=== PATIENT | male | born 1930 | race Caucasian/White ===

== ENCOUNTER 2016-10-16 08:53 | Inpatient (IN) | payer OTHER ==
[~2016-10-16] VITALS: Ht 167.6 cm; Wt 76.0 kg
[~2016-10-16 08:53] MED LIST: PROSTATE MED
--- NOTE | 2016-10-16 09:44 | EMERGENCY ROOM VISIT NOTE ---
History Report prepared by Chloe: Jasper Flannery Under the Supervision of: Dr. Ulysses Lorenzana M.D. First contact with patient: 09:07 Stated Complaint: BACK PAIN/WEAKNESS History of Present Illness The patient is an 86 year old male who presents to the Emergency Room with complaints of persistent lower back pain for the past several days. The pain is described as a burning sensation in the back. He had Advil for pain, which helped minimally. The patient has trouble urinating secondary to prostate disease. He notes that he has trouble initiating urination. 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 He notes that his abdomen feels "tight," and he complains of shortness of breath. He denies chest pain. The patient is on Lasix for a history of CHF. His last dose of Lasix was yesterday morning. The patient's daughter translated the history from [place] at bedside. A complete history may be limited secondary to language barrier. 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 Past Medical & Surgical Medical Problems: (1) BPH (benign prostatic hyperplasia) (2) Sepsis (3) UTI (urinary tract infection) Surgical Problems: (1) No pertinent past surgical history Family History Patient reports no known family medical history. Social History Marital Status: Housing Status: lives with family Current/Historical Medications No Active Prescriptions or Reported Meds Allergies Coded Allergies: No Known Allergies (Verified , 10/16/16) Physical Exam Vital Signs Date Time Temp Pulse Resp B/P Pulse Ox O2 Delivery O2 Flow Rate FiO2 10/16/16 13:54 111 26 95 10/16/16 13:44 90/62 10/16/16 13:39 118 13 94 10/16/16 13:34 138 14 95 Nasal Cannula 4.0 10/16/16 13:30 79/48 10/16/16 13:28 79/48 10/16/16 13:27 66/49 10/16/16 13:22 89/62 10/16/16 13:19 132 17 92 10/16/16 13:15 66/53 10/16/16 13:13 71/57 10/16/16 13:04 162 28 10/16/16 13:01 175 10/16/16 12:59 180 30 81/62 10/16/16 12:55 91/63 10/16/16 12:19 150 98 10/16/16 12:14 92/60 10/16/16 12:13 141 96 Nebulizer 10/16/16 12:08 136 98 10/16/16 12:03 132 98 10/16/16 11:58 131 99 Nebulizer 10/16/16 11:56 107 16 92 Room Air 10/16/16 11:53 132 99 10/16/16 11:48 131 99 10/16/16 11:43 128 99 10/16/16 11:38 127 100 10/16/16 11:33 124 99 10/16/16 11:28 121 98 10/16/16 11:23 119 98 10/16/16 11:18 115 98 10/16/16 11:13 115 98 10/16/16 11:08 114 98 10/16/16 11:03 108 91 10/16/16 10:58 108 92 10/16/16 10:53 108 92 10/16/16 10:52 110 16 99/64 93 Room Air 10/16/16 10:51 99/64 10/16/16 10:48 105 93 10/16/16 10:43 105 93 10/16/16 10:38 98 93 10/16/16 10:33 102 95 10/16/16 10:28 103 95 10/16/16 10:23 104 94 10/16/16 10:18 102 94 10/16/16 10:15 108/68 10/16/16 10:15 107 16 108/68 94 Room Air 10/16/16 10:13 105 92 10/16/16 10:08 105 30 93 10/16/16 10:03 109 29 94 10/16/16 09:58 109 24 94 10/16/16 09:53 102 13 10/16/16 09:49 94 Room Air 10/16/16 09:49 94 Room Air 10/16/16 09:48 105 13 94 10/16/16 09:43 116 20 95 10/16/16 09:38 110 14 94 10/16/16 09:33 113 26 94 10/16/16 09:28 112 36 95 10/16/16 09:23 97 31 92 10/16/16 09:18 106 18 96 10/16/16 09:13 108 27 95 10/16/16 09:12 36.9 98 20 132/95 93 Room Air 10/16/16 09:08 113 18 93 10/16/16 09:03 125 13 95 10/16/16 09:00 113 10/16/16 08:56 132/95 Physical Exam GENERAL: Patient is a healthy-appearing well-nourished HEAD: Normocephalic atraumatic EYES: Ocular movements intact pupils equal and react to light OROPHARYNX mucous membranes are moist no exudates present no erythema or edema present NECK: Supple no nuchal rigidity CHEST: Good equal expansion LUNGS: Clear and equal to auscultation CARDIAC: Normal S1 and S2 ABDOMEN: Soft nontender no guarding BACK: No CVA tenderness EXTREMITIES: No pain upon palpation normal muscle strength in all groups no clubbing cyanosis or edema NEURO: Patient is following commands is answering questions appropriately. Alert and oriented x3 Cranial Nerves 2-12 grossly intact Medical Decision & Procedures ER Provider Diagnostic Interpretation: Radiology results as stated below per my review and radiologist interpretation: CHEST ONE VIEW PORTABLE CLINICAL HISTORY: Pt c/o SOB dyspnea COMPARISON STUDY: 03/22/2008 FINDINGS: No evidence for cardiac enlargement. Diaphragms smooth. Small parenchymal infiltrate left base. Lungs otherwise appear clear. IMPRESSION: Small parenchymal infiltrate right base. Electronically signed by: Chinedu Liu M.D. 10/16/2016 10:25 AM Dictated Date/Time: 10/16/2016 10:24 AM ABDOMEN AND PELVIS CT WITHOUT CONTRAST CT DOSE: 864.07 mGycm HISTORY: Pain Pt c/o low back pain TECHNIQUE: Multiaxial CT images of the abdomen and pelvis were performed without contrast. COMPARISON STUDY: None. FINDINGS: Mild bibasilar parenchymal infiltrative/atelectatic changes. Configuration of liver is unremarkable. Several tiny gallstones may be present. Kidneys negative for hydronephrosis. Spleen is unremarkable. The adrenal glands are within normal limits. Bowel pattern overall is nonobstructive. Noyola catheter is present within the bladder. The inguinal Regions are unremarkable. IMPRESSION: 1. Bibasilar infiltrative and/or atelectatic changes. 2. Possible tiny gallstones. 3. Nonobstructive bowel pattern. 4. No acute processes the abdomen or pelvis 5. Significant degenerative change of the lumbar spine at the L2-L3 and L4 levels Electronically signed by: Chinedu Liu M.D. 10/16/2016 1:14 PM Dictated Date/Time: 10/16/2016 1:03 PM Laboratory Results Test 10/16/16 09:52 10/16/16 09:55 10/16/16 13:34 Neutrophils % (Manual) 91.2 % Lymphocytes % (Manual) 3.5 % Monocytes % (Manual) 3.5 % Eosinophils % (Manual) 0.9 % Myelocytes % 0.9 % Neutrophils # (Manual) 13.63 K/uL (1.4-6.5) Total Absolute Neutrophils 13.63 K/uL (1.4-6.5) Lymphocytes # (Manual) 0.52 K/uL (1.2-3.4) Total Absolute Lymphocytes 0.52 K/uL (1.2-3.4) Monocytes # (Manual) 0.52 K/uL (0.11-0.59) Eosinophils # (Manual) 0.13 K/uL (0-0.5) Myelocytes # 0.13 K/uL (0-0) Toxic Granulation 1+ Prothrombin Time 13.8 SECONDS (9.0-12.0) Prothromb Time International Ratio 1.3 (0.9-1.1) Activated Partial Thromboplast Time 27.6 SECONDS (21.0-31.0) Partial Thromboplastin Ratio 1.1 Pro-B-Type Natriuretic Peptide 3006 pg/ml (0-1800) Thyroid Stimulating Hormone (TSH) 3.620 uIu/ml (0.300-4.500) Urine Color DK YELLOW Urine Appearance TURBID (CLEAR) Urine pH 7.0 (4.5-7.5) Urine Specific [place] 1.021 (1.000-1.030) Urine Protein 2+ (NEG) Urine Glucose (UA) NEG (NEG) Urine Ketones TRACE (NEG) Urine Occult Blood 3+ (NEG) Urine Nitrite NEG (NEG) Urine Bilirubin NEG (NEG) Urine Urobilinogen NEG (NEG) Urine Leukocyte Esterase LARGE (NEG) Urine WBC (Auto) >30 /hpf (0-5) Urine RBC (Auto) >30 /hpf (0-4) Urine Hyaline Casts (Auto) 0 /lpf (0-5) Urine Epithelial Cells (Auto) 0-5 /lpf (0-5) Urine Bacteria (Auto) 4+ (NEG) Urine Pathogenic Casts /lpf (0) Urine Yeast (Auto) (NONE PRSENT) Influenza Type A (RT-PCR) Neg for Influ A (NEG) Influenza Type B (RT-PCR) Neg for Influ B (NEG) Date/Time Source Procedure Growth Status 10/16/16 09:55 Urine,Catheterized Urine Culture - Final Staphylococcus Aureus Complete Labs reviewed by ED physician. Medications Administered Medications (Trade) Dose Ordered Sig/Malik Route Start Time Stop Time Status Last Admin Dose Admin Piperacillin Sod/ Tazobactam Sod (Zosyn Iv) 4.5 gm NOW STAT IV 10/16/16 10:38 10/16/16 10:40 DC 10/16/16 10:49 4.5 GM Levofloxacin (Levaquin / D5W) 500 mg NOW STAT IV 10/16/16 10:38 10/16/16 10:40 DC 10/16/16 12:26 500 MG Morphine Sulfate (MoRPHine SULFATE INJ) 4 mg NOW STAT IV 10/16/16 10:40 10/16/16 10:41 DC 10/16/16 10:49 4 MG Ondansetron HCl 4 mg 4 mg NOW STAT IV 10/16/16 10:40 10/16/16 10:41 DC 10/16/16 10:47 4 MG Sodium Chloride 1,000 ml @ 999 mls/hr Q1H1M STAT IV 10/16/16 10:52 10/16/16 11:52 DC 10/16/16 12:26 999 MLS/HR Diltiazem HCl/ Dextrose (Cardizem Inj/D5 100ml) 125 ml @ 0 mls/hr Q0M PRN IV 10/16/16 13:15 10/17/16 02:01 DC 10/16/16 13:21 5 MLS/HR Diltiazem HCl (Cardizem Inj) 16 mg NOW STAT IV 10/16/16 13:05 10/17/16 02:01 DC 10/16/16 13:17 16 MG Diltiazem HCl (Cardizem Inj) 23 mg NOW STAT IV 10/16/16 13:05 10/17/16 02:01 DC 10/16/16 13:27 23 MG ECG Indication: back/shoulder pain Rate (beats per minute): 115 Rhythm: sinus tachycardia Findings: no acute ischemic change, no ectopy Change: Repeat EKG: Atrial fibrillation with RVR at 177, no acute ischemic changes. Patient is now in A-fib with RVR compared to earlier EKG. ED Course 0910: The patient gave permission for his daughter to interpret. 0915: Past medical records reviewed. The patient was evaluated in room B3b. A complete history and physical examination was performed. 0930: Patient put out 187 CCs from catheter. 1038: Levaquin / D5w 500 mg IV, Zosyn 4.5 gm IV. 1040: Zofran 4 mg IV, Morphine Sulfate 4 mg IV. 1045: DuoNeb 12 ml INH. 1052: NSS 1000 ml @ 999 mls/hr. 1300: Patient is now in A-fib with RVR. See ECG section for interpretation. 1305: Cardizem 24 mg IV, Cardizem 6 mg IV. 1310: Discussed the case with Areli Browne PA-C, [facility]. The patient will be evaluated. 1315: Cardizem 125 mg / dextrose 125 ml @ 0 mls/hr. Medical Decision Differential diagnosis: Etiologies such as viral syndrome, otitis, pharyngitis, pneumonia, influenza, meningitis, urinary tract infection, sepsis, bacteremia, as well as others were entertained. This is an 86-year-old male who presents emergency department complaining of generalized weakness. The patient does appear to have pneumonia on his chest x- ray and is in acute renal failure. He was pancultured up and started on antibiotics. The patient was given albuterol breathing treatments which resulted in the patient going into an A. fib with RVR. For this reason he was started on Cardizem bolus with drip. I did discuss the case with the hospitalist service who agreed to admit the patient. Patient family were in agreement with the treatment plan. Consults Time Called: 1300 Consulting Physician: Areli Browne PA-C, [facility]. Returned Call: [phone]: Discussed the case with Areli Browne PA-C, [facility]. The patient will be evaluated. Impression Primary Impression: Pneumonia Additional Impressions: ARF (acute renal failure) Atrial fibrillation with RVR Critical Care I have personally spent greater than 30 minutes of critical care time in the direct management of this patient. This includes bedside care, interpretation of diagnostic studies, and testing, discussion with consultants, patient, and family members, and other required patient management activities. This 30 minutes is in excess of all separately billable procedures. Scribe Attestation The scribe's documentation has been prepared under my direction and personally reviewed by me in its entirety. I confirm that the note above accurately reflects all work, treatment, procedures, and medical decision making performed by me. Departure Information Dispostion Being Evaluated By Hospitalist Prescriptions No Active Prescriptions or Reported Meds Referrals Ace Castro M.D. (PCP) Problem Qualifiers Primary Impression: Pneumonia Pneumonia type: due to unspecified organism Laterality: unspecified laterality Lung location: unspecified part of lung Qualified Codes: J18.9 - Pneumonia, unspecified organism Additional Impressions: ARF (acute renal failure) Acute renal failure type: unspecified Qualified Codes: N17.9 - Acute kidney failure, unspecified
--- NOTE | 2016-10-16 10:27 | DIAGNOSTIC IMAGING REPORT ---
CHEST ONE VIEW PORTABLE CLINICAL HISTORY: Pt c/o SOB dyspnea COMPARISON STUDY: 03/22/2008 FINDINGS: No evidence for cardiac enlargement. Diaphragms smooth. Small parenchymal infiltrate left base. Lungs otherwise appear clear. IMPRESSION: Small parenchymal infiltrate right base. Electronically signed by: Chinedu Liu M.D. 10/16/2016 10:25 AM Dictated Date/Time: 10/16/2016 10:24 AM
[2016-10-16] MEDS ORDERED: LEVAQUIN 500MG / 100ML D5W IV STA (10:38)
[2016-10-16] MEDS ORDERED: PIPERACILLIN/TAZOBACTAM 4.5 GM/100ML D5W IV STA (10:38)
[2016-10-16] MEDS ORDERED: ONDANSETRON INJ 2 MG/ML 2 ML VIAL IV STA (10:40)
[2016-10-16] MEDS ORDERED: MoRPHine SULFATE 4 MG/ML 1 ML CARP\\VIAL IV STA (10:40)
[2016-10-16] MEDS ORDERED: ALBUT/IPRATROP 3MG/0.5MG NEB 3 ML VIAL INH ONE (10:45)
[2016-10-16 10:50] LABS: ALT/SGPT 70 U/L (12-78); AST/SGOT 72 U/L (15-37); BLOOD UREA NITROGEN 43 mg/dl (7-18); BUN/CREATININE RATIO 21.4 (10-20); CALCIUM 8.7 mg/dl (8.5-10.1); CARBON DIOXIDE 21 mmol/L (21-32); CHLORIDE 105 mmol/L (98-107); GLUCOSE 138 mg/dl (70-99); POTASSIUM 4.2 mmol/L (3.5-5.1); SODIUM 141 mmol/L (136-145)
[2016-10-16] MEDS ORDERED: SODIUM CHLORIDE 0.9% 1000ML 1,000 ML IV STA (10:52)
[2016-10-16 11:10] LABS: COMPLETE YES; EOSINOPHIL % 0.9 %; LYMPH ABS # 0.52 K/uL (1.2-3.4); LYMPHOCYTE % 3.5 %; MEAN CELL VOLUME 88.2 fL (80-100); MEAN CORPUSCULAR HEMOGLOBIN 30.9 pg (25-34); MEAN PLATELET VOLUME 12.1 fL (7.4-10.4); MYELOCYTE % 0.9 %; NEUTROPHILS % 91.2 %; PLATELET COUNT 71 K/uL (130-400); RED BLOOD COUNT 4.76 M/uL (4.7-6.1); TOXIC GRANULATION 1+; WHITE BLOOD COUNT 14.95 K/uL (4.8-10.8)
[2016-10-16 11:12] LABS: ALB/GLOB RATIO 1.1 (0.9-2); ALKALINE PHOSPHATASE 204 U/L (45-117); CKMB/CK RATIO 1.5 (0-3.0)
[2016-10-16 11:12] LABS: URINE APPEARANCE TURBID (CLEAR); URINE BILIRUBIN NEG (NEG); URINE COLOR DK YELLOW; URINE NITRITE NEG (NEG); URINE SPECIFIC GRAVITY 1.021 (1.000-1.030); UROBILINOGEN NEG (NEG); ZZURINE CULT IF INDIC CATH YES
[2016-10-16 11:23] LABS: MANUAL MICROSCOPIC REQUIRED? NO; REVIEW REQ? YES
[2016-10-16 11:52] LABS: URINE EPITHELIAL CELL AUTO 0-5 /lpf (0-5)
[2016-10-16 11:56] VITALS: PULSE 107; O2SAT 92
[2016-10-16] MEDS ORDERED: DILTIAZEM BOLUS / DRIP IV STA (13:00)
[2016-10-16] MEDS ORDERED: DILTIAZEM HCL 5 MG/ML 5 ML VIAL IV STA ×2 (13:05)
[2016-10-16] MEDS ORDERED: DILTIAZEM HCL INJ 125 MG in DEXTROSE 5% 100ML IV PRN (13:15)
--- NOTE | 2016-10-16 13:15 | DIAGNOSTIC IMAGING REPORT ---
ABDOMEN AND PELVIS CT WITHOUT CONTRAST CT DOSE: 864.07 mGycm HISTORY: Pain Pt c/o low back pain TECHNIQUE: Multiaxial CT images of the abdomen and pelvis were performed without contrast. COMPARISON STUDY: None. FINDINGS: Mild bibasilar parenchymal infiltrative/atelectatic changes. Configuration of liver is unremarkable. Several tiny gallstones may be present. Kidneys negative for hydronephrosis. Spleen is unremarkable. The adrenal glands are within normal limits. Bowel pattern overall is nonobstructive. Noyola catheter is present within the bladder. The inguinal Regions are unremarkable. IMPRESSION: 1. Bibasilar infiltrative and/or atelectatic changes. 2. Possible tiny gallstones. 3. Nonobstructive bowel pattern. 4. No acute processes the abdomen or pelvis 5. Significant degenerative change of the lumbar spine at the L2-L3 and L4 levels Electronically signed by: Chiendu Liu M.D. 10/16/2016 1:14 PM Dictated Date/Time: 10/16/2016 1:03 PM
[2016-10-16 13:28] LABS: INR 1.3 (0.9-1.1); PARTIAL THROMBOPLASTIN RATIO 1.1; PROTHROMBIN TIME (PATIENT) 13.8 SECONDS (9.0-12.0)
[2016-10-16] MEDS ORDERED: ONDANSETRON INJ 2 MG/ML 2 ML VIAL IV PRN (14:00)
--- NOTE | 2016-10-16 14:08 | History and Physical ---
History & Physical Date & Time of Service: Oct 16, 2016 at 13:58 Chief Complaint: Back Pain/Weakness Primary Care Physician: Tamara Toribio D.O. History of Present Illness Source: patient, family, clinic records, hospital records Patient seen and examined. 86 year old male with no significant PMHx presents to the ED complaining of generalized weakness since last night. Patient speaks Kosovan. Translating service was offered to the patient but he declined and requested that his daughter translate for him. Patient was feeling close to baseline until last evening when he started to feel SOB and generally weak. He reports taking his BP at home and that it was lower than normal. He has associated chest congestion and dysuria. He denies fevers, cough, chest pain, palpitations, nausea, vomiting, diarrhea, calf pain. Patient has peripheral edema worse in the left leg for several months with overlying erythema. He has taken Lasix for this but only a few doses because of side effect. He denies any PMHx of heart disease, and does not take any medications. He follows with a PCP regularly. In the ED VS were initially stable, WBC count was elevated, he is thrombocytopenic, crea is elevated, and there is a slight bump in troponin. UA shows infection, and CXR showed possible pneumonia. He received a duoneb treatment and apparently developed afib with RVR. Duoneb was stopped and patient was placed on Cardizem drip. His BP has subsequently dropped. He will be admitted for further workup and treatment. Past Medical/Surgical History Medical Problems: (1) BPH (benign prostatic hyperplasia) Status: Chronic Surgical Problems: (1) No pertinent past surgical history Status: Chronic Family History Patient reports no known family medical history. Social History Smoking Status: Never Smoker Alcohol Use: none Marital Status: Housing status: lives with family Occupational Status: retired Multi-Drug Resistant Organisms History of MDRO: No Allergies Coded Allergies: No Known Allergies (Verified , 10/16/16) Home Medications No Active Prescriptions or Reported Meds Review of Systems See above for pertinent positives & negatives. A total of 10 systems reviewed and were otherwise negative. Physical Exam Vital Signs Date Time Temp Pulse Resp B/P Pulse Ox O2 Delivery O2 Flow Rate FiO2 10/16/16 13:34 138 14 95 Nasal Cannula 4.0 10/16/16 13:30 79/48 10/16/16 13:28 79/48 10/16/16 13:27 66/49 10/16/16 13:22 89/62 10/16/16 13:19 132 17 92 10/16/16 13:15 66/53 10/16/16 13:13 71/57 10/16/16 13:04 162 28 10/16/16 13:01 175 10/16/16 12:59 180 30 81/62 10/16/16 12:55 91/63 10/16/16 12:19 150 98 10/16/16 12:14 92/60 10/16/16 12:13 141 96 Nebulizer 10/16/16 12:08 136 98 10/16/16 12:03 132 98 10/16/16 11:58 131 99 Nebulizer 10/16/16 11:56 107 16 92 Room Air 10/16/16 11:53 132 99 10/16/16 11:48 131 99 10/16/16 11:43 128 99 10/16/16 11:38 127 100 10/16/16 11:33 124 99 10/16/16 11:28 121 98 10/16/16 11:23 119 98 10/16/16 11:18 115 98 10/16/16 11:13 115 98 10/16/16 11:08 114 98 10/16/16 11:03 108 91 10/16/16 10:58 108 92 10/16/16 10:53 108 92 10/16/16 10:52 110 16 99/64 93 Room Air 10/16/16 10:51 99/64 10/16/16 10:48 105 93 10/16/16 10:43 105 93 10/16/16 10:38 98 93 10/16/16 10:33 102 95 10/16/16 10:28 103 95 10/16/16 10:23 104 94 10/16/16 10:18 102 94 10/16/16 10:15 108/68 10/16/16 10:15 107 16 108/68 94 Room Air 10/16/16 10:13 105 92 10/16/16 10:08 105 30 93 10/16/16 10:03 109 29 94 10/16/16 09:58 109 24 94 10/16/16 09:53 102 13 10/16/16 09:49 94 Room Air 10/16/16 09:49 94 Room Air 10/16/16 09:48 105 13 94 10/16/16 09:43 116 20 95 10/16/16 09:38 110 14 94 10/16/16 09:33 113 26 94 10/16/16 09:28 112 36 95 10/16/16 09:23 97 31 92 10/16/16 09:18 106 18 96 10/16/16 09:13 108 27 95 10/16/16 09:12 36.9 98 20 132/95 93 Room Air 10/16/16 09:08 113 18 93 10/16/16 09:03 125 13 95 10/16/16 09:00 113 10/16/16 08:56 132/95 General Appearance: + pertinent finding (WD/WN 86 year old male lying inbed in NAD with family at bedside ) Head: normocephalic, atraumatic Eyes: PERRL, EOMI, sclerae normal ENT: hearing grossly normal, pharynx normal Neck: supple, no JVD Respiratory/Chest: chest non-tender, lungs clear, normal breath sounds, no respiratory distress, no accessory muscle use Cardiovascular: no gallop, no JVD, no murmur, normal peripheral pulses, + tachycardia (120s) Abdomen/GI: normal bowel sounds, non tender, soft Genitourinary - Male: + pertinent finding (haas with dark yellow urine ) Extremities/Musculoskelatal: no calf tenderness, normal capillary refill, + pedal edema (+2 pedal edema L>R), + pertinent finding (overlying erythema to LLE , drainage ) Neurologic/Psych: alert, oriented x 3 Skin: normal color, warm/dry Lymphatic: no adenopathy Diagnostics Laboratory Results Results Past 24 Hours Test 10/16/16 09:52 10/16/16 09:55 10/16/16 13:34 10/16/16 13:35 Range/Units White Blood Count 14.95 4.8-10.8 K/uL Red Blood Count 4.76 4.7-6.1 M/uL Hemoglobin 14.7 14.0-18.0 g/dL Hematocrit 42.0 42-52 % Mean Corpuscular Volume 88.2 80-100 fL Mean Corpuscular Hemoglobin 30.9 25-34 pg Mean Corpuscular Hemoglobin Concent 35.0 32-36 g/dl Platelet Count 71 130-400 K/uL Mean Platelet Volume 12.1 7.4-10.4 fL RDW Standard Deviation 50.6 36.4-46.3 fL RDW Coefficient of Variation 15.7 11.5-14.5 % Neutrophils % (Manual) 91.2 % Lymphocytes % (Manual) 3.5 % Monocytes % (Manual) 3.5 % Eosinophils % (Manual) 0.9 % Myelocytes % 0.9 % Neutrophils # (Manual) 13.63 1.4-6.5 K/uL Total Absolute Neutrophils 13.63 1.4-6.5 K/uL Lymphocytes # (Manual) 0.52 1.2-3.4 K/uL Total Absolute Lymphocytes 0.52 1.2-3.4 K/uL Monocytes # (Manual) 0.52 0.11-0.59 K/uL Eosinophils # (Manual) 0.13 0-0.5 K/uL Myelocytes # 0.13 0-0 K/uL Toxic Granulation 1+ Prothrombin Time 13.8 9.0-12.0 SECONDS Prothromb Time International Ratio 1.3 0.9-1.1 Activated Partial Thromboplast Time 27.6 21.0-31.0 SECONDS Partial Thromboplastin Ratio 1.1 Sodium Level 141 136-145 mmol/L Potassium Level 4.2 3.5-5.1 mmol/L Chloride Level 105 98-107 mmol/L Carbon Dioxide Level 21 21-32 mmol/L Anion Gap 15.0 3-11 mmol/L Blood Urea Nitrogen 43 7-18 mg/dl Creatinine 2.00 0.60-1.40 mg/dl Estimated GFR () 33.8 Estimated GFR (Non- 29.1 BUN/Creatinine Ratio 21.4 10-20 Random Glucose 138 70-99 mg/dl Calcium Level 8.7 8.5-10.1 mg/dl Total Bilirubin 1.9 0.2-1 mg/dl Aspartate Amino Transf (AST/SGOT) 72 15-37 U/L Alanine Aminotransferase (ALT/SGPT) 70 12-78 U/L Alkaline Phosphatase 204 45-117 U/L Total Creatine Kinase 210 39-308 U/L Creatine Kinase MB 3.1 0.5-3.6 ng/ml Creatine Kinase MB Ratio 1.5 0-3.0 Troponin I 0.191 0-0.045 ng/ml Pro-B-Type Natriuretic Peptide 3006 0-1800 pg/ml Total Protein 5.8 6.4-8.2 gm/dl Albumin 3.1 3.4-5.0 gm/dl Globulin 2.7 2.5-4.0 gm/dl Albumin/Globulin Ratio 1.1 0.9-2 Thyroid Stimulating Hormone (TSH) 3.620 0.300-4.500 uIu/ml Urine Color DK YELLOW Urine Appearance TURBID CLEAR Urine pH 7.0 4.5-7.5 Urine Specific [place] 1.021 1.000-1.030 Urine Protein 2+ NEG Urine Glucose (UA) NEG NEG Urine Ketones TRACE NEG Urine Occult Blood 3+ NEG Urine Nitrite NEG NEG Urine Bilirubin NEG NEG Urine Urobilinogen NEG NEG Urine Leukocyte Esterase LARGE NEG Urine WBC (Auto) >30 0-5 /hpf Urine RBC (Auto) >30 0-4 /hpf Urine Hyaline Casts (Auto) 0 0-5 /lpf Urine Epithelial Cells (Auto) 0-5 0-5 /lpf Urine Bacteria (Auto) 4+ NEG Urine Pathogenic Casts 0 /lpf Urine Yeast (Auto) NONE PRSENT Microbiology Results 10/16/16 Blood Culture, Received Pending 10/16/16 Blood Culture, Received Pending 10/16/16 Urine Culture, Received Pending Diagnostic Radiology CT A/P Per radiologist read: IMPRESSION: 1. Bibasilar infiltrative and/or atelectatic changes. 2. Possible tiny gallstones. 3. Nonobstructive bowel pattern. 4. No acute processes the abdomen or pelvis 5. Significant degenerative change of the lumbar spine at the L2-L3 and L4 levels CXR Per radiologist read: IMPRESSION: Small parenchymal infiltrate right base. EKG Sinus Tachycardia 115 BPM, QTc 418, nonspecific ST and twave changes Impression Assessment and Plan 86 year old male who speaks Kosovan and enjoys relatively good health presents to the ED complaining of SOB, generalized weakness since last night SEPSIS -Admit to tele -WBC count: 14K, Lactate 13, hypotension, tachycardia, afebrile -Likely UTI and Pneumonia, possible cellulitis -panculture -receive 2L IVF bolus, gentle IVFs continued -trend lactate acid -empirically treat with Levaquin, and Zosyn. -CBC, PRP, Mg in AM COMMUNITY ACQUIRED PNEUMONIA -CXR with right basilar consolidation -r/o flu, PCR pending -check sputum cultures -empirically treat with Levaquin and Zosyn -additional management as above URINARY TRACT INFECTION -check culture -empirically treat with Levaquin and Zosyn LACTIC ACIDOSIS -13.5 -received 30ml/kg of IVFs -repeat lactate pending HYPOTENSION -BP as low as 60s systolically -? secondary to sepsis versus Cardizem drip. BP was stable on arrival -Cardizem drip stopped -additional 1 liter bolus given -BP improved -monitor in tele ACUTE RENAL FAILURE -crea 2, baseline <1 -likely secondary to dehydration, acute illness, and recent lasix use -IVF hydration -avoid nephrotoxic agents -follow PRP ELEVATED TROPONIN -0.191->0.5 -? demand ischemic in setting of sepsis, no chest pain -continue to trend enzymes -repeat EKG -echo pending -cardiology consult placed for further input -will hold off on aspirin at this time d/t platelet count -monitor in tele LEFT LOWER EXTREMITY EDEMA -Possible cellulitis, r/o DVT -doppler US pending TACHYCARDIA -reports that patient was in Afib following duoneb administration- EKG with Sinus tach -repeat EKG -stop Cardizem drip d/t hypotension -tachycardia possibly secondary to sepsis -IVF hydration -monitor in tele THROMBOCYTOPENIA -71 today, no signs of active bleeding? secondary to acute illness -avoid anticoagulation -repeat in AM DVT PROPHYLAXIS: cannot anticoagulate d/t thrombocytopenia, hold off on SCDs until doppler US CODE STATUS: FULL CODE per my discussion with the patient and his family DISPO:In my clinical judgment this beneficiary meets acute admission criteria, established by [facility], that includes being hospitalized through two midnights. Discharge planning eval Patient seen in collaboration with Dr. Hernandez Attending Addendum Pt was seen and examined with daughter and at beside. Pt speaks Kosovan and daughter was translating for him. Agreed with Areli [facility], assessment and plan. 86 year old male with no significant PMHx presents to the ED complaining of generalized weakness, chills and SOB since last night. He was recently started on lasix for lower extremity edema. daughter said that since started on it, he has been feeling sick. Denies any chest pain. General- no respiratory distress Head- atraumatic Eyes- PERRL, EOMI ENT- dry mucosa Neck- supple, no JVD Lungs- No wheezing, no crackles Heart- no murmur, +tachy Abdomen- normal bowel sounds, soft Extremities- +B/L LE edema, no calf tenderness, Left LE redness Neuro- alert, awake, PERRL, EOMI; no facial palsy Skin- warm & dry A/P SEPSIS -Possible related to pneumonia vs UTI vs cellulitis -WBC count: 14K, Lactate 13, hypotension, tachycardia, afebrile - Check urine cx and blood cx -receive 2L IVF bolus, will give 1 more liter and continue IVF -Repeated lactate level increase to 15, went to evaluate pt with VS stable -empirically treat with Levaquin, and Zosyn, adding vancomycin -CBC, PRP, Mg in AM - Will monitor very closely ELEVATED TROPONIN Possible related to sepsis and JAVAD 2nd set troponin trending up will get stat repeat EKG Cardiology consult will get an echo continue monitor very closely in tele JAVAD Possible related to sepsis and diuretic Continue IVF Lasix d/c continue monitor BMP Lab, Imaging, EKG reviewed by me Please Refer to Areli MELVIN's documentation for other problems Samantha Hernandez MD VTE Prophylaxis VTE Risk Assessment Done? Y/N: Yes Risk Level: Moderate
[2016-10-16] MEDS ORDERED: MAGNESIUM SULFATE 1GM / D5W 1 GM BAG ONE (14:25)
[2016-10-16] MEDS ORDERED: MoRPHine SULFATE 4 MG/ML 1 ML CARP\\VIAL ONE (14:28)
[2016-10-16] MEDS ORDERED: PIPERACILL/TAZOBAC CONSULT ACTIVE PRN (15:15)
[2016-10-16] MEDS ORDERED: LEVOFLOXACIN CONSULT ACTIVE PRN (15:15)
[2016-10-16 15:25] LABS: INFLUENZA A PCR Neg for Influ A (NEG); INFLUENZA B PCR Neg for Influ B (NEG)
[2016-10-16 16:00] VITALS: O2SAT 91; Ht 167.6 cm; Wt 76.0 kg
[2016-10-16 16:36] LABS: CKMB/CK RATIO 2.8 (0-3.0)
[2016-10-16 17:15] VITALS: BP_SYST 80; BP_SYST 89; BP_DIAS 49; PULSE 113; TEMP 36.8; O2SAT 87
[2016-10-16] MEDS ORDERED: SODIUM CHLORIDE 0.9% 1000ML 1,000 ML IV SCH ×2 (17:15→17:30)
[2016-10-16] MEDS ORDERED: SODIUM CHLORIDE 0.9% 1000ML 1,000 ML IV ONE (17:15)
[2016-10-16] MEDS ORDERED: VANCOMYCIN CONSULT ACTIVE PRN (17:30)
--- NOTE | 2016-10-16 17:35 | Progress Note ---
Progress Note Post Crystalloid Evaluation Date: Oct 16, 2016 Time: 17:10 (Areli Browne PA-C) Subjective Patient seen and examined following IVF resuscitation of 30ml/kg. Patient reports feeling tired and thirsty. Otherwise voices no complaints, denies chest pain, SOB. Lactic acid trending up to 15.4. BP 89/49. HR 111, afebrile. (Areli Browne PA-C) Physical Exam Vital Signs: Vital Signs Date Time Temp Pulse Resp B/P Pulse Ox O2 Delivery O2 Flow Rate FiO2 10/16/16 17:15 36.8 113 20 80/49 87 89/49 10/16/16 16:38 10/16/16 14:09 4.0 Lungs: chest non-tender, lungs clear, normal breath sounds, no respiratory distress, no accessory muscle use Heart: no edema, no gallop, no JVD, no murmur, normal peripheral pulses, + tachycardia Peripheral Pulse: Normal Capillary Refill: Normal (less than 2 seconds) Skin: Unremarkable (Areli Browne PA-C) Assessment & Plan Presence of: Severe Sepsis 86 year old male who speaks [place] and enjoys relatively good health presents to the ED complaining of SOB, generalized weakness since last night SEVERE SEPSIS -Admit to tele -WBC count: 14K, Lactate 13, hypotension, tachycardia, afebrile -Likely UTI and Pneumonia, possible cellulitis -panculture -receive 2L IVF bolus, gentle IVFs continued -trend lactate acid -empirically treat with Levaquin, and Zosyn. -CBC, PRP, Mg in AM -addendum - will add vancomycin for worsening lactic acidosis in setting of sepsis. Give additional 1L fluid bolus. If BP does not improve patient will need transferred to ICU for pressors. Continue to monitor closely, and trend lactate, will repeat CBC with next lactate COMMUNITY ACQUIRED PNEUMONIA -CXR with right basilar consolidation -r/o flu, PCR pending -check sputum cultures -empirically treat with Levaquin and Zosyn -additional management as above URINARY TRACT INFECTION -check culture -empirically treat with Levaquin and Zosyn LACTIC ACIDOSIS -13.5 -received 30ml/kg of IVFs -repeat lactate pending HYPOTENSION -BP as low as 60s systolically -? secondary to sepsis versus Cardizem drip. BP was stable on arrival -Cardizem drip stopped -additional 1 liter bolus given -BP improved -monitor in tele ACUTE RENAL FAILURE -crea 2, baseline <1 -likely secondary to dehydration, acute illness, and recent lasix use -IVF hydration -avoid nephrotoxic agents -follow PRP ELEVATED TROPONIN -0.191->0.5 -? demand ischemic in setting of sepsis, no chest pain -continue to trend enzymes -repeat EKG -echo pending -cardiology consult placed for further input -will hold off on aspirin at this time d/t platelet count -monitor in tele LEFT LOWER EXTREMITY EDEMA -Possible cellulitis, r/o DVT -doppler US pending TACHYCARDIA -reports that patient was in Afib following duoneb administration- EKG with Sinus tach -repeat EKG -stop Cardizem drip d/t hypotension -tachycardia possibly secondary to sepsis -IVF hydration -monitor in tele THROMBOCYTOPENIA -71 today, no signs of active bleeding? secondary to acute illness -avoid anticoagulation -repeat in AM DVT PROPHYLAXIS: cannot anticoagulate d/t thrombocytopenia, hold off on SCDs until doppler US CODE STATUS: FULL CODE per my discussion with the patient and his family DISPO:In my clinical judgment this beneficiary meets acute admission criteria, established by [facility], that includes being hospitalized through two midnights. Discharge planning eval Patient seen in collaboration with Dr. Hernandez (Areli Browne, PA-C) Pt was seen and examined with Daughter in the room translated [place]tarian for me. Agreed with Areli assessment and plan. Pt said that he feels the same. Lactic acid and WBC increase. will add IV vacomycin, and continue zosyn and levaquin. will give another 1 L bolus IVF. Will repeat lactic acid and monitor cbc. continue monitor closely in telemetry. (Samantha Hernandez M.D.)
[2016-10-16] MEDS ORDERED: VANCOMYCIN INJ 1,650 MG in SODIUM CHLORIDE 0.9% 500ML 500 ML IV ONE (17:45)
[2016-10-16] MEDS ORDERED: MAGNESIUM SULFATE 1GM / D5W 1 GM in PREMIXED IN D5W 100 ML IV ONE (18:00)
[2016-10-16] MEDS: SODIUM CHLORIDE 0.9% 1000ML 1,000 ML IV SCH (18:15)
[2016-10-16 19:22] VITALS: BP 98/41; PULSE 100; TEMP 36.8; O2SAT 98
[2016-10-16] MEDS: PIPERACILL/TAZOBAC IV 3.375 GM in DEXTROSE 5% 100ML 100 ML IV SCH (19:41)
[2016-10-16 19:46] LABS: HEMATOCRIT 38.7 % (42-52); MEAN CELL VOLUME 89.2 fL (80-100); MEAN CORPUSCULAR HEMOGLOBIN 30.4 pg (25-34); MEAN CORPUSCULAR HGB CONC 34.1 g/dl (32-36); MEAN PLATELET VOLUME 12.2 fL (7.4-10.4); RED BLOOD COUNT 4.34 M/uL (4.7-6.1)
--- NOTE | 2016-10-16 19:55 | Pharmacy Progress Note ---
Pharmacy Antibiotic Consult Date of Service: Oct 16, 2016. Pharmacy Dosing Scope Pharmacy is consulted to initiate Vancomycin, Levaquin, and Zosyn IV dosing therapy, order appropriate labs and adjust drug dose/frequency. Subjective The patient is a 86 year old male admitted on Oct 16, 2016 at 13:54. Objective Height (Feet): 5 Height (Inches): 6 Weight (Kilograms): 66.00 Lab Results (24hrs): Laboratory Tests Test 10/16/16 09:52 10/16/16 19:07 BUN/Creatinine Ratio 21.4 Blood Urea Nitrogen 43 mg/dl Creatinine 2.00 mg/dl White Blood Count 14.95 K/uL Red Blood Count 4.76 M/uL Hemoglobin 14.7 g/dL Hematocrit 42.0 % Mean Corpuscular Volume 88.2 fL Mean Corpuscular Hemoglobin 30.9 pg Mean Corpuscular Hemoglobin Concent 35.0 g/dl Platelet Count 71 K/uL Mean Platelet Volume 12.1 fL Micro Results: Item Value Date Time Blood Culture Received 10/16/16 1340 Blood Pending Blood Culture Received 10/16/16 1335 Blood Pending Urine Culture Received 10/16/16 0955 Urine,Catheterized Pending Assessment & Plan * Patient admitted with severe sepsis secondary to CAD and UTI. Pt initiated on Zosyn and Levaquin IV. Lactic acid worsened so Vancomycin IV was added to antibiotic regimen. Vancomycin * SCr elevated above baseline at 2.0 vs 0.9. * Thus, will start with a LD of Vancomycin 1650 mg (25mg/kg) IV x 1. * Wait to start MD until SCr normalizes. Depending on how long this takes may need to dose patient based upon random levels in the meantime. Zosyn * Pt given bolus of Zosyn 4.5gm IV x 1 then transitioned to extended infusion Zosyn 3.375gm IV [id number] per pharmacy consult. Levaquin * Pt received Levaquin 500 mg IV x 1 then transitioned to Levaquin 750mg IV q48 hours per pharmacy consult. Pharmacy will continue to follow and will adjust dose/frequency as necessary. Thank you
--- NOTE | 2016-10-16 21:06 | DIAGNOSTIC IMAGING REPORT ---
BILATERAL LOWER EXTREMITY VENOUS DOPPLER HISTORY: Lower extremity edema, erythema, r/o dvt COMPARISON STUDY: None. FINDINGS: There is normal compressibility, flow, and augmentation within the visualized bilateral lower extremity deep venous systems. The anterior and posterior tibial veins were suboptimally visualized but likely patent. The bilateral peroneal veins were not clearly identified. IMPRESSION: No DVT within the visualized right or left lower extremity. Electronically signed by: Steve Stern M.D. 10/16/2016 9:05 PM Dictated Date/Time: 10/16/2016 9:04 PM
[2016-10-16 21:30] VITALS: BP 95/49; PULSE 100; O2SAT 90
[2016-10-16 21:40] LABS: PLATELET COUNT 68 K/uL (130-400)
[2016-10-16 23:06] VITALS: BP 105/52; PULSE 103; TEMP 36.9; O2SAT 93
[2016-10-17] VITALS (16 sets, daily range): BP systolic 79–119; BP diastolic 49–84; PULSE 75–92; TEMP 36.7–36.9; O2SAT 88–99
[2016-10-17 00:57] LABS: BUN/CREATININE RATIO 17.8 (10-20); CALCIUM 7.9 mg/dl (8.5-10.1); CKMB/CK RATIO 5.7 (0-3.0); CREATININE 2.7 mg/dl (0.60-1.40); POTASSIUM 4.6 mmol/L (3.5-5.1)
[2016-10-17] MEDS ORDERED: ASPIRIN 81 MG CHEW PO STA (01:01)
[2016-10-17] MEDS ORDERED: METOPROLOL TARTRATE 25 MG TAB PO ONE (01:07)
--- NOTE | 2016-10-17 01:09 | Progress Note ---
Progress Note Date of Service Oct 17, 2016. Progress Note [facility] ATTENDANT Last 24 Hours Test 10/16/16 09:52 10/16/16 09:55 10/16/16 13:34 10/16/16 13:35 White Blood Count 14.95 K/uL Red Blood Count 4.76 M/uL Hemoglobin 14.7 g/dL Hematocrit 42.0 % Mean Corpuscular Volume 88.2 fL Mean Corpuscular Hemoglobin 30.9 pg Mean Corpuscular Hemoglobin Concent 35.0 g/dl Platelet Count 71 K/uL Mean Platelet Volume 12.1 fL RDW Standard Deviation 50.6 fL RDW Coefficient of Variation 15.7 % Neutrophils % (Manual) 91.2 % Lymphocytes % (Manual) 3.5 % Monocytes % (Manual) 3.5 % Eosinophils % (Manual) 0.9 % Myelocytes % 0.9 % Neutrophils # (Manual) 13.63 K/uL Total Absolute Neutrophils 13.63 K/uL Lymphocytes # (Manual) 0.52 K/uL Total Absolute Lymphocytes 0.52 K/uL Monocytes # (Manual) 0.52 K/uL Eosinophils # (Manual) 0.13 K/uL Myelocytes # 0.13 K/uL Toxic Granulation 1+ Prothrombin Time 13.8 SECONDS Prothromb Time International Ratio 1.3 Activated Partial Thromboplast Time 27.6 SECONDS Partial Thromboplastin Ratio 1.1 Sodium Level 141 mmol/L Potassium Level 4.2 mmol/L Chloride Level 105 mmol/L Carbon Dioxide Level 21 mmol/L Anion Gap 15.0 mmol/L Blood Urea Nitrogen 43 mg/dl Creatinine 2.00 mg/dl Estimated GFR () 33.8 Estimated GFR (Non- 29.1 BUN/Creatinine Ratio 21.4 Random Glucose 138 mg/dl Calcium Level 8.7 mg/dl Magnesium Level 1.7 mg/dl Total Bilirubin 1.9 mg/dl Aspartate Amino Transf (AST/SGOT) 72 U/L Alanine Aminotransferase (ALT/SGPT) 70 U/L Alkaline Phosphatase 204 U/L Total Creatine Kinase 210 U/L Creatine Kinase MB 3.1 ng/ml Creatine Kinase MB Ratio 1.5 Troponin I 0.191 ng/ml Pro-B-Type Natriuretic Peptide 3006 pg/ml Total Protein 5.8 gm/dl Albumin 3.1 gm/dl Globulin 2.7 gm/dl Albumin/Globulin Ratio 1.1 Thyroid Stimulating Hormone (TSH) 3.620 uIu/ml Urine Color DK YELLOW Urine Appearance TURBID Urine pH 7.0 Urine Specific [place] 1.021 Urine Protein 2+ Urine Glucose (UA) NEG Urine Ketones TRACE Urine Occult Blood 3+ Urine Nitrite NEG Urine Bilirubin NEG Urine Urobilinogen NEG Urine Leukocyte Esterase LARGE Urine WBC (Auto) >30 /hpf Urine RBC (Auto) >30 /hpf Urine Hyaline Casts (Auto) 0 /lpf Urine Epithelial Cells (Auto) 0-5 /lpf Urine Bacteria (Auto) 4+ Urine Pathogenic Casts /lpf Urine Yeast (Auto) Influenza Type A (RT-PCR) Neg for Influ A Influenza Type B (RT-PCR) Neg for Influ B Lactic Acid Level 13.5 mmol/L Test 10/16/16 16:00 10/16/16 19:07 10/17/16 00:11 10/17/16 01:45 Lactic Acid Level 15.4 mmol/L 14.9 mmol/L 12.0 mmol/L Total Creatine Kinase 203 U/L 288 U/L Creatine Kinase MB 5.6 ng/ml 16.5 ng/ml Creatine Kinase MB Ratio 2.8 5.7 Troponin I 0.500 ng/ml 2.970 ng/ml White Blood Count 40.20 K/uL Red Blood Count 4.34 M/uL Hemoglobin 13.2 g/dL Hematocrit 38.7 % Mean Corpuscular Volume 89.2 fL Mean Corpuscular Hemoglobin 30.4 pg Mean Corpuscular Hemoglobin Concent 34.1 g/dl RDW Standard Deviation 52.6 fL RDW Coefficient of Variation 16.2 % Platelet Count 68 K/uL Mean Platelet Volume 12.2 fL Sodium Level 136 mmol/L Potassium Level 4.6 mmol/L Chloride Level 101 mmol/L Carbon Dioxide Level 19 mmol/L Anion Gap 16.0 mmol/L Blood Urea Nitrogen 48 mg/dl Creatinine 2.70 mg/dl Est Creatinine Clear Calc Drug Dose 17.4 ml/min Estimated GFR () 23.5 Estimated GFR (Non- 20.3 BUN/Creatinine Ratio 17.8 Random Glucose 401 mg/dl Calcium Level 7.9 mg/dl Beta-Hydroxybutyric Acid 1.80 mg/dL Bedside Glucose 314 mg/dl EKG @ 00:21: ST 101, ST depression + T-wave inversion lateral leads. Port CXR- RLL infiltrate, mild pulmonary vascular congestion (preliminary interpretation by undersigned). SEPSIS Repeat WBC this evening 40,200. Lactic acid still high, but trending downward 13.5 --> 15.4 --> --> 12.0. Hemodynamically stable. Continue levofloxacin, piperacillin / tazo, vanco. PROBABLE NON-STEMI Troponin 0.191 --> 0.500 --> 2.970. EKG shows lateral ST / T-wave changes as noted. Given dose of aspirin (one dose only due to thrombocytopenia). IV heparin was ordered, but cancelled because of thrombocytopenia. Low-dose metoprolol as tolerated. Echo ordered. Cardiology consulted. HYPERGLYCEMIA Random blood sugar 401. No apparent history of DM. Did not receive steroids. IV insulin per protocol. Check Hgb A1C. .
[2016-10-17 01:15] LABS: BETA-HYDROXYBUTYRATE 1.8 mg/dL (0.2-2.81)
[2016-10-17] MEDS ORDERED: INSULIN IV INFUSION PROTOCOL SCH (01:15)
[2016-10-17] MEDS ORDERED: METOPROLOL TARTRATE 1 MG/ML VIAL IV STA (01:15)
[2016-10-17] MEDS ORDERED: INSULIN PROTOCOL GOAL RANGE ONE (01:15)
[2016-10-17] MEDS ORDERED: MODERATE STRESS LEVEL ONE (02:00)
[2016-10-17] MEDS ORDERED: GLUCOSE 10 TABS/TUBE PO PRN (02:30)
[2016-10-17] MEDS ORDERED: INSULIN HUMAN REGULAR IV BOLUS 1.5 UNIT in SYRINGE 0 ML IV SCH (02:30)
[2016-10-17] MEDS ORDERED: INSULIN REGULAR 250 UNITS in SODIUM CHLORIDE 0.9% 250ML 250 ML IV SCH ×2 (02:30→11:30)
[2016-10-17] MEDS ORDERED: GLUCOSE 40% GEL 15 GM TUBE PO PRN (02:30)
[2016-10-17] MEDS ORDERED: DEXTROSE 50% 50 ML SYR IV PRN (02:30)
[2016-10-17] MEDS ORDERED: GLUCAGON FOR INJ 1 MG VIAL SQ PRN (02:30)
[2016-10-17] MEDS: PIPERACILL/TAZOBAC IV 3.375 GM in DEXTROSE 5% 100ML 100 ML IV SCH ×3 (02:36→17:41)
[2016-10-17] MEDS: SODIUM CHLORIDE 0.9% 1000ML 1,000 ML IV SCH ×3 (02:41→20:02)
[2016-10-17 06:01] LABS: HEMATOCRIT 36.7 % (42-52); MEAN CELL VOLUME 87.6 fL (80-100); MEAN CORPUSCULAR HEMOGLOBIN 30.3 pg (25-34); MEAN CORPUSCULAR HGB CONC 34.6 g/dl (32-36); MEAN PLATELET VOLUME 12.2 fL (7.4-10.4); PLATELET COUNT 62 K/uL (130-400); RED BLOOD COUNT 4.19 M/uL (4.7-6.1); WHITE BLOOD COUNT 27.69 K/uL (4.8-10.8)
[2016-10-17 06:31] LABS: ALB/GLOB RATIO 0.8 (0.9-2); BUN/CREATININE RATIO 19.7 (10-20); CALCIUM 7.9 mg/dl (8.5-10.1); CHOLESTEROL/HDL RATIO 8.6; CKMB/CK RATIO 6.2 (0-3.0); CREATININE 2.5 mg/dl (0.60-1.40); MAGNESIUM 2.3 mg/dl (1.8-2.4); POTASSIUM 4.2 mmol/L (3.5-5.1)
--- NOTE | 2016-10-17 07:00 | DIAGNOSTIC IMAGING REPORT ---
CHEST ONE VIEW PORTABLE CLINICAL HISTORY: sepsis, hypoxia dyspnea COMPARISON STUDY: 10/16/2016 FINDINGS: Increased prominence of pulmonary vasculature. Potential developing infiltrate right base. Moderate cardiomegaly increase in the prior exam. IMPRESSION: Congestive failure. Superimposed infiltrate right base. Electronically signed by: Chinedu Liu M.D. 10/17/2016 6:59 AM Dictated Date/Time: 10/17/2016 6:58 AM
[2016-10-17] MEDS ORDERED: PERFLUTREN LIPID MICROSPHERE (DEFINITY) IV ONE (07:25)
[2016-10-17 07:34] LABS: ESTIMATED AVERAGE GLUCOSE 123 mg/dl; HA1C FLAG Normal (Normal)
[2016-10-17] MEDS ORDERED: INSULIN ASPART 100 UNITS/ML 3 ML PEN SC SCH (08:00)
[2016-10-17] MEDS: MoRPHine SULFATE 2 MG/ML CARP IV PRN ×2 (08:47→20:03)
[2016-10-17] MEDS: METOPROLOL TARTRATE 25 MG TAB PO SCH ×2 (09:00→20:04)
[2016-10-17] MEDS ORDERED: ASPIRIN 81 MG ECTAB PO SCH (09:00)
--- NOTE | 2016-10-17 09:01 | ECHOCARDIOGRAM REPORT ---
*NOTICE TO RECEIVING CONSTITUTION PARTY AGENCY This information is strictly Confidential and protected under [place] law. [place] law prohibits you from making any further disclosure of this information unless further disclosure is expressly permitted by the written consent of the person to whom it pertains or is authorized by law. A general authorization for the release of medical or other information is not sufficient for this purpose. Hospital accepts no responsibility if the information is made available to any other person, INCLUDING THE PATIENT. Interpretation Summary * Name: SHARAD LEE Study Date: 10/17/2016 06:46 AM BP: 102/53 mmHg * Patient Location: C.2E\[id number]\E201\S\1 HR: 92 * : 1930 (M/d/yyyy) Gender: Male Height: 66 in * Age: 86 yrs Ethnicity: [place] Weight: 145 lb * Ordering Physician: Areli Browne * Referring Physician: Juan Knutson * Performed By: Ofelia Maier RDCS * * Reason For Study: Chest pain * BSA: 1.7 m2 * The study was technically limited. * -- Conclusions -- * The study was technically limited due to poor acoustic windows. * Sinus rhythm at 85 bpm is noted. * The left ventricular cavity is small. * There is moderate concentric left ventricular hypertrophy. 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 * The remaining myocardial segments reveals normal wall motion to hyperkineisis. * The LV Ejection Fraction = >70 %. * The aortic valve is severely calcified, with decreased excursion noted on 2D imaging. * Diastolic dysfunction, Grade II (pseudonormalization pattern). Procedure Details * A complete two-dimensional transthoracic echocardiogram was performed (2D, M-mode, Doppler and color flow Doppler). * A contrast injection of Definity was performed to improve assessment of LV function. * Contrast was injected into an intravenous site in the right arm. * One vial of Definity ultrasound contrast was diluted in normal saline to a total volume of 10 ml. A total of '2' ml of solution was administered during imaging. * Lot # [id number] of Definity utilized for procedure. * Expiration date NOV 13. * The attending nurse who injected the contrast agent was Sabra Hernandez RN. Left Ventricle * The left ventricular cavity is small. * The left ventricular apex is akinetic, and contrast images suggest apical pseudoaneurysm. The remaining myocardial segments reveals normal wall motion to hyperkineisis. * There is moderate concentric left ventricular hypertrophy. * Ejection Fraction = >70 %. Right Ventricle * The right ventricualar chamber size and systolic function are grossly normal in limited visualization. Atria * The left atrial size is normal. * Right atrial size is normal. * There is no evidence of atrial septal defect, but resolution does not allow assessment for a patent foramen ovale. Mitral Valve * There is mild mitral annular calcification. * There is no mitral valve stenosis. * Significant mitral regurgitation is absent. Tricuspid Valve * The tricuspid valve is normal. * There is no tricuspid stenosis. * Significant tricuspid regurgitation is absent. Aortic Valve * The aortic valve is severely calcified, with decreased excursion noted on 2D imaging. * The Doppler evaluation of aortic stenosis is technically limited. Based on 2D images moderate or severe aortic stenosis is suspected. * There is no significant aortic regurgitation. Pulmonic Valve * The pulmonary valve is not well seen, but the Doppler examination is normal without significant regurgitation or stenosis. Great Vessels * The aortic root and proximal ascending aorta are normal sized. Pericardium/Pleural * There is no pericardial effusion. Great Vessels * Normal inferior vena cava diameter and respiratory variation suggests normal central venous pressure. Left Ventricular Diastolic Function * Diastolic dysfunction, Grade II (pseudonormalization pattern). MMode 2D Measurements and Calculations ACS 1.2 cm LVAd ap4 27.0 cm\S\2 LVLd ap4 9.5 cm EDV(MOD-sp4) 67.5 ml EDV(sp4-el) 65.0 ml LVAs ap4 15.4 cm\S\2 LVLs ap4 8.7 cm ESV(MOD-sp4) 23.2 ml ESV(sp4-el) 23.1 ml EF(MOD-sp4) 65.7 % EF(sp4-el) 64.5 % LVAd ap2 27.5 cm\S\2 LVLd ap2 9.3 cm EDV(MOD-sp2) 70.5 ml EDV(sp2-el) 69.3 ml LVAs ap2 15.4 cm\S\2 LVLs ap2 8.9 cm ESV(MOD-sp2) 23.1 ml ESV(sp2-el) 22.4 ml EF(MOD-sp2) 67.2 % EF(sp2-el) 67.7 % LVLd %diff -2.34 % EDV(MOD-bp) 69.4 ml LVLs %diff 2.9 % ESV(MOD-bp) 22.9 ml EF(MOD-bp) 67.0 % SV(MOD-sp4) 44.3 ml SI(MOD-sp4) 25.4 ml/m\S\2 SV(MOD-sp2) 47.3 ml SI(MOD-sp2) 27.1 ml/m\S\2 SV(MOD-bp) 46.6 ml SI(MOD-bp) 26.7 ml/m\S\2 SV(sp4-el) 42.0 ml SI(sp4-el) 24.0 ml/m\S\2 SV(sp2-el) 46.9 ml SI(sp2-el) 26.9 ml/m\S\2 Doppler Measurements and Calculations MV E max stephanie 127.6 cm/sec MV A max stephanie 108.2 cm/sec MV E/A 1.2 MV P1/2t max stephanie 136.4 cm/sec MV P1/2t 112.4 msec MVA(P1/2t) 2.0 cm\S\2 MV dec slope 355.4 cm/sec\S\2 MV dec time 0.23 sec Ao V2 max 140.6 cm/sec Ao max PG 7.9 mmHg Ao max PG (full) 1.9 mmHg LV V1 max PG 6.0 mmHg LV V1 max 122.2 cm/sec PI end-d stephanie 97.2 cm/sec
--- NOTE | 2016-10-17 09:42 | Pharmacy Progress Note ---
Pharmacy Antibiotic Prog Note Date of Service: Oct 17, 2016. Subjective: The patient is currently on day #2 of vancomycin, Levaquin and Zosyn therapy for sepsis secondary to UTI vs pneumonia. Objective: Height (Feet): 5 Height (Inches): 6.00 Weight (Kilograms): 80.000 (InaccurateDosing based off of admission weight of 66 kg) Lab Results (24hrs): Laboratory Tests Test 10/16/16 09:52 10/16/16 19:07 10/17/16 00:11 10/17/16 05:36 BUN/Creatinine Ratio 21.4 17.8 19.7 Blood Urea Nitrogen 43 mg/dl 48 mg/dl 49 mg/dl Creatinine 2.00 mg/dl 2.70 mg/dl 2.50 mg/dl White Blood Count 14.95 K/uL 40.20 K/uL 27.69 K/uL Red Blood Count 4.76 M/uL Hemoglobin 14.7 g/dL Hematocrit 42.0 % Mean Corpuscular Volume 88.2 fL Mean Corpuscular Hemoglobin 30.9 pg Mean Corpuscular Hemoglobin Concent 35.0 g/dl Platelet Count 71 K/uL Mean Platelet Volume 12.1 fL Micro Results: Item Value Date Time Influenza Type A (RT-PCR) Neg for Influ A 10/16/16 1334 Influenza Type B (RT-PCR) Neg for Influ B 10/16/16 1334 Item Value Date Time Blood Culture Received 10/16/16 1340 Blood Pending Blood Culture Received 10/16/16 1335 Blood Pending Urine Culture - Preliminary Resulted 10/16/16 0955 Urine,Catheterized Staphylococcus Aureus Recent Pertinent Medications: Item Value Date Time Levofloxacin 750 150 ml @ 100 mls/hr 10/18/16 0600 mg/Prmx Q48H/IV Piperacillin Sod/ 115 ml @ 28.75 mls/hr 10/16/16 1800 Tazobactam Sod Q8H/IV 10/17/16 0236 3.375 gm/Dextrose Vancomycin HCl 533 ml @ 200 mls/hr 10/16/16 1745 1650 mg/Sodium TODAY@1745 ONCE/IV 10/16/16 1942 Chloride Assessment & Plan: ASSESSMENT: * Urine culture showing S. aureus but sensitivities not yet resulted * SCr still too unstable to order a maintenance dose of vancomycin * Will plan to obtain a random vancomycin level and dose vancomycin off of random levels for now PLAN: * Random level ordered for 2000 tonight (~24 hrs after receiving loading dose) * Level may still be high but getting a level w/ AM labs may result in too low of a trough * If level < or = 20 mcg/mL, will plan to give a 15 mg/kg (~1 gm) one time dose * If level > 20 mcg/mL, will plan to reorder vancomycin level with AM labs or later depending on how high the level is tonight Pharmacy will continue to follow and will adjust dose/frequency as necessary. Thank you
--- NOTE | 2016-10-17 10:36 | Cardiology Consultation ---
Cardiology Consultation Date of Consultation: Oct 17, 2016 Requesting Physician: Dr. Hernandez Attending Child Care [facility] Manager: Luh (Chinedu Schmitz PA-C) History of Present Illness Mr. Perez is an 86 year old male who is being seen at the request of Dr. Hernandez. Reason for consultation is elevated troponin. Information obtained from chart review and the patient via an historic interpreter. No family members were present during my evaluation. Mr. Perez presented to the ER on 10/16/2016 with a chief complaint of back pain of several days duration, minimally aided by PRN Advil. Additional concerns noted included difficulty urinating, shortness of breath, cough, chest congestion, and abdominal pain. In the ER he was noted to have an elevated WBC count, thrombocytopenia (present in June 2016 per review of his outpatient records), acute renal dysfunction , and an elevated troponin. Urinalysis was consistent with infection. A portable chest x-ray showed a small parenchymal infiltrate at the right base. He was given a Duoneb treatment, lapsing into atrial fibrillation with a significantly elevated ventricular response (~200 bpm). The Duoneb was discontinued and he was given IV Cardizem with resultant hypotension that responded to IV fluid resuscitation. I believe he has received 2 L of IVF bolus and continues to received IVF's at 125 mL/hour. CT of the abdomen and pelvis in the ER was negative of an acute process, as per Dr. Liu. There were bibasilar infiltrative and/or atelectatic changes, possible tiny gallstones, and significant degenerative change of the lumbar spine at the L2-L3 and L4 levels. The patient has been admitted with a working diagnosis of severe sepsis felt to be secondary to a UTI and community acquired pneumonia. Cardiology consultation requested secondary to the elevated troponin. His initial EKG from October 16, 2016 at 09:06:49 revealed sinus tachycardia at 115 bpm with lateral and to a lesser extent inferior ST-T wave abnormality. EKG from 12:57:08 on 10/16/2016 reveals atrial fibrillation at 177 bpm with anterior and lateral ST depression. A third EKG at 17:33:28 reveals sinus tachycardia at [address]-T wave abnormality and a prolonged QTc; this represents significant change from the preceding EKG's though does not appear significant different when compared to an outpatient EKG from June 2016. The most recent available EKG at 08:47:23 this mornign reveals sinus at 3 bpm with marked anterolateral ST-T wave changes. Troponins are 0.191, 0.500, 2.970, 3.780 ng/mL. Via the historic interpreter, the patient denies prior cardiac history and denies chest pain. He complains of severe lower back pain that is aggravated by movement and attributed by the patient to be due to the recent use of diuretic therapy. He notes shortness of breath is aggravated by movement, worse when in pain. He denies palpitations. He has a cough and chest congestion, without orthopnea or PND. He notes chronic left lower extremity edema, decreased urine output, generalized weakness. He has been treated for left lower extremity cellulitis as an outpatient recently. He has a history of abnormal LFT's. Chart history of a possible TIA/CVA in October 2015. (Chinedu Schmitz PA-C) History Past Medical/Surgical History: Cervical syringomyelia History of GI bleeding, peptic ulcer disease, Acacia Rendon tear felt to be in association with a Go-Lightly prep for colonoscopy BPH Osteoarthritis Family History: Noncontributory. Social History: Nonsmoker. No significant alcohol. No illegal drug use. (Chiendu Schmitz PA-C) Review Of Systems Complete Review of Systems: See above. Somewhat limited by the language barrier. Otherwise, negative or contributory. (Chinedu Schmitz PA-C) Allergies Coded Allergies: No Known Allergies (Verified , 10/16/16) Medications Reported Home Medications Medications Dose Route/Sig Max Daily Dose Days Date Category No Active Prescriptions or Reported Medications Rx (Chinedu Schmitz PA-C) Physical Exam Vital Signs (Last 8hrs): Last 8 Hrs Date Time Temp Pulse Resp B/P Pulse Ox O2 Delivery O2 Flow Rate FiO2 10/17/16 08:01 36.7 87 38 116/74 93 Mask 6.0 10/17/16 04:04 102/53 10/17/16 04:00 93 Mask 4.0 10/17/16 03:09 36.9 92 28 101/54 93 Mask 6.0 General Appearance: Alert and Oriented x3. Acutely ill. Chronically ill. Tachypneic. HEENT: Normocephalic Atraumatic. PER, EOMI, conjunctiva and sclera clear. Mucous membranes are dry. Neck: Neck veins are flat. No carotid bruits appreciated. Respiratory: Dyspneic. Tachypneic. Breath sounds decreased, diminished. No wheezes. Cardiovascular: RRR, 84 bpm. Grade II/ systolic ejection murmur. No diastolic murmur. No rub. PMI is not displaced. Abdomen: +BS. Soft. Nontender. [place] catheter with a small amount of concentrated urine. Extremities: No edema on the right. There is moderate left lower extremity edema and erythema consistent with distal left lower extremity cellutilis. Neuro: No focal deficits. (Chinedu Schmitz PA-C) Data Last 24 Hours Test 10/16/16 09:52 10/16/16 09:55 10/16/16 13:34 10/16/16 13:35 White Blood Count 14.95 K/uL Red Blood Count 4.76 M/uL Hemoglobin 14.7 g/dL Hematocrit 42.0 % Mean Corpuscular Volume 88.2 fL Mean Corpuscular Hemoglobin 30.9 pg Mean Corpuscular Hemoglobin Concent 35.0 g/dl Platelet Count 71 K/uL Mean Platelet Volume 12.1 fL RDW Standard Deviation 50.6 fL RDW Coefficient of Variation 15.7 % Neutrophils % (Manual) 91.2 % Lymphocytes % (Manual) 3.5 % Monocytes % (Manual) 3.5 % Eosinophils % (Manual) 0.9 % Myelocytes % 0.9 % Neutrophils # (Manual) 13.63 K/uL Total Absolute Neutrophils 13.63 K/uL Lymphocytes # (Manual) 0.52 K/uL Total Absolute Lymphocytes 0.52 K/uL Monocytes # (Manual) 0.52 K/uL Eosinophils # (Manual) 0.13 K/uL Myelocytes # 0.13 K/uL Toxic Granulation 1+ Prothrombin Time 13.8 SECONDS Prothromb Time International Ratio 1.3 Activated Partial Thromboplast Time 27.6 SECONDS Partial Thromboplastin Ratio 1.1 Sodium Level 141 mmol/L Potassium Level 4.2 mmol/L Chloride Level 105 mmol/L Carbon Dioxide Level 21 mmol/L Anion Gap 15.0 mmol/L Blood Urea Nitrogen 43 mg/dl Creatinine 2.00 mg/dl Estimated GFR () 33.8 Estimated GFR (Non- 29.1 BUN/Creatinine Ratio 21.4 Random Glucose 138 mg/dl Calcium Level 8.7 mg/dl Magnesium Level 1.7 mg/dl Total Bilirubin 1.9 mg/dl Aspartate Amino Transf (AST/SGOT) 72 U/L Alanine Aminotransferase (ALT/SGPT) 70 U/L Alkaline Phosphatase 204 U/L Total Creatine Kinase 210 U/L Creatine Kinase MB 3.1 ng/ml Creatine Kinase MB Ratio 1.5 Troponin I 0.191 ng/ml Pro-B-Type Natriuretic Peptide 3006 pg/ml Total Protein 5.8 gm/dl Albumin 3.1 gm/dl Globulin 2.7 gm/dl Albumin/Globulin Ratio 1.1 Thyroid Stimulating Hormone (TSH) 3.620 uIu/ml Urine Color DK YELLOW Urine Appearance TURBID Urine pH 7.0 Urine Specific [place] 1.021 Urine Protein 2+ Urine Glucose (UA) NEG Urine Ketones TRACE Urine Occult Blood 3+ Urine Nitrite NEG Urine Bilirubin NEG Urine Urobilinogen NEG Urine Leukocyte Esterase LARGE Urine WBC (Auto) >30 /hpf Urine RBC (Auto) >30 /hpf Urine Hyaline Casts (Auto) 0 /lpf Urine Epithelial Cells (Auto) 0-5 /lpf Urine Bacteria (Auto) 4+ Urine Pathogenic Casts /lpf Urine Yeast (Auto) Influenza Type A (RT-PCR) Neg for Influ A Influenza Type B (RT-PCR) Neg for Influ B Lactic Acid Level 13.5 mmol/L Test 10/16/16 16:00 10/16/16 19:07 10/17/16 00:11 10/17/16 01:45 Lactic Acid Level 15.4 mmol/L 14.9 mmol/L 12.0 mmol/L Total Creatine Kinase 203 U/L 288 U/L Creatine Kinase MB 5.6 ng/ml 16.5 ng/ml Creatine Kinase MB Ratio 2.8 5.7 Troponin I 0.500 ng/ml 2.970 ng/ml White Blood Count 40.20 K/uL Red Blood Count 4.34 M/uL Hemoglobin 13.2 g/dL Hematocrit 38.7 % Mean Corpuscular Volume 89.2 fL Mean Corpuscular Hemoglobin 30.4 pg Mean Corpuscular Hemoglobin Concent 34.1 g/dl RDW Standard Deviation 52.6 fL RDW Coefficient of Variation 16.2 % Platelet Count 68 K/uL Mean Platelet Volume 12.2 fL Sodium Level 136 mmol/L Potassium Level 4.6 mmol/L Chloride Level 101 mmol/L Carbon Dioxide Level 19 mmol/L Anion Gap 16.0 mmol/L Blood Urea Nitrogen 48 mg/dl Creatinine 2.70 mg/dl Est Creatinine Clear Calc Drug Dose 17.4 ml/min Estimated GFR () 23.5 Estimated GFR (Non- 20.3 BUN/Creatinine Ratio 17.8 Random Glucose 401 mg/dl Calcium Level 7.9 mg/dl Beta-Hydroxybutyric Acid 1.80 mg/dL Bedside Glucose 314 mg/dl Test 10/17/16 03:08 10/17/16 04:02 10/17/16 04:57 10/17/16 05:36 Bedside Glucose 282 mg/dl 297 mg/dl 285 mg/dl White Blood Count 27.69 K/uL Red Blood Count 4.19 M/uL Hemoglobin 12.7 g/dL Hematocrit 36.7 % Mean Corpuscular Volume 87.6 fL Mean Corpuscular Hemoglobin 30.3 pg Mean Corpuscular Hemoglobin Concent 34.6 g/dl RDW Standard Deviation 52.1 fL RDW Coefficient of Variation 16.2 % Platelet Count 62 K/uL Mean Platelet Volume 12.2 fL Nucleated RBC Absolute Count (auto) 0.03 K/uL Nucleated Red Blood Cells % 0.1 % Sodium Level 138 mmol/L Potassium Level 4.2 mmol/L Chloride Level 103 mmol/L Carbon Dioxide Level 23 mmol/L Anion Gap 12.0 mmol/L Blood Urea Nitrogen 49 mg/dl Creatinine 2.50 mg/dl Est Creatinine Clear Calc Drug Dose 20.7 ml/min Estimated GFR () 25.8 Estimated GFR (Non- 22.3 BUN/Creatinine Ratio 19.7 Random Glucose 251 mg/dl Estimated Average Glucose 123 mg/dl Hemoglobin A1c 5.9 % Lactic Acid Level 6.4 mmol/L Calcium Level 7.9 mg/dl Magnesium Level 2.3 mg/dl Total Bilirubin 1.0 mg/dl Aspartate Amino Transf (AST/SGOT) 67 U/L Alanine Aminotransferase (ALT/SGPT) 62 U/L Alkaline Phosphatase 147 U/L Total Creatine Kinase 242 U/L Creatine Kinase MB 15.1 ng/ml Creatine Kinase MB Ratio 6.2 Troponin I 3.780 ng/ml Total Protein 5.1 gm/dl Albumin 2.3 gm/dl Globulin 2.8 gm/dl Albumin/Globulin Ratio 0.8 Triglycerides Level 157 mg/dl Cholesterol Level 69 mg/dl HDL Cholesterol 8 mg/dl LDL Cholesterol, Calculated 30 mg/dl VLDL Cholesterol, Calculated 31 mg/dl Cholesterol/HDL Ratio 8.6 Test 10/17/16 06:50 10/17/16 08:26 10/17/16 09:19 Bedside Glucose 218 mg/dl 169 mg/dl 124 mg/dl Imaging: See above. EKG: See above. Telemetry: Currently sinus at [address]-T wave changes. Intermittent sinus tachycardia. Prior paroxysmal atrial fibrillation around 200 bpm. No significant bradyarrhythmias or pauses. October 17, 2016 TTE Interpretation Summary ([facility], Dr. Hester): The study was technically limited due to poor acoustic windows. Sinus rhythm at 85 bpm is noted. The left ventricular cavity is small. There is moderate concentric left ventricular hypertrophy. 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 The remaining myocardial segments reveals normal wall motion to hyperkineisis. The LV Ejection Fraction = >70 %. The aortic valve is severely calcified, with decreased excursion noted on 2D imaging. Diastolic dysfunction, Grade II (pseudonormalization pattern). (Chinedu Schmitz PA-C) Assessment & Plan 86 year old male admitted with severe sepsis attributed to community acquired pneumonia and a urinary tract infection. Left lower extremity cellulitis may be a contributing factor. Paroxysmal atrial fibrillation with a rapid ventricular response, resolved Currently in sinus at 85 bpm. Continue low dose metoprolol as BP permits Risks of antiplatelet and anticoagulation appear to be greater than the benefit at this time. 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 Severely calcified aortic valve noted with decreased excursion on 2D imaging. Given echo findings I do not believe he will tolerate an elevated heart rate for too long. NSTEMI Medical management appears to be the best option at this time. Treatment limited by hypotension, acute kidney injury, thrombocytopenia, abnormal LFT's Continue beta-kavon therapy as BP permits Add ASA if/when thrombocytopenia improves. Hold off on statin given abnormal LFT's and the acute kidney injury. Acute kidney injury [place] to be secondary to infection, recent loop diuretic therapy for left lower extremity edema, and NSAID (ibuprofen) use. Continue IVF's. No diuretics. No NSAID's. Hypotension BP lower in left arm Marked hypotension observed following administration of 2 mg Morphine for back pain. Follow Further recommendations pending his hospital course and evaluation by Dr. Arvizu. (Chinedu Schmitz PA-C) CARDIOLOGY ATTENDING ADDENDUM: The patient was seen and personally examined. Agree with Chinedu Schmitz PA-C's findings and plans as documented above.Not much more to add, well covered by the PA. (Nico Arvizu, )
[2016-10-17 13:40] LABS: ALLEN TEST POS (POS); ARTERIAL BLD GAS O2 SATURATION 92.1 % (90-95); ARTERIAL BLOOD GAS BASE EXCESS -3.5 mEq/L (-9-1.8); ARTERIAL BLOOD GAS HCO3 21 mmol/L (19-24); ARTERIAL BLOOD GAS PO2 64 mm/Hg (80-95); O2 ADMINISTRATION 15 L
--- NOTE | 2016-10-17 14:24 | Progress Note ---
Internal Med Progress Note Date of Service: Oct 17, 2016. Provider Documentation: SUBJECTIVE: The patient was seen and examined poor communication due to Language barrier Not in any distress White cell count went >40K last night Low BP this morning and low saturation OBJECTIVE: Vital Signs-as noted below Exam: General-no distress at rest Eyes-normal ENT-normal Neck-supple Lungs-decreased breath sound bilaterally Crackles right base Heart-regular,no murmur appreciated Abdomen-benign Extremities-1 + edema bilaterally Right >Left with Redness Neuro-AA Generally weak,no focal neuro deficit Lab data as noted below. ASSESSMENT & PLAN: SEVERE SEPSIS Admitted with symptoms of Weakness ,back pain and fall Met severe sepsis criteria WBC count: 14K, Lactate 13, hypotension, tachycardia, afebrile Likely UTI and Pneumonia, possible cellulitis -empirically treat with Levaquin, and Zosyn. -later on Vancomycin was added -received adequet IVF and can not give more due to Lung congestion -Lactic acid and WCC are trending down COMMUNITY ACQUIRED PNEUMONIA -CXR with right basilar consolidation -negative for Flu -has been on Zosyn,Levaquin and Vanco HYPOTENSION -BP as low as 60s systolically -likely secondary to sepsis versus Cardizem drip. BP was stable on arrival -Cardizem drip stopped -remains on the lower side -will try to give more fluid -may need pressors if not improved Hypoxemia Likely secondary to sepsis complicated by congestion Check ABG-low CO2 and Low O2 On BIPAP now URINARY TRACT INFECTION -check culture-staph aureus.Likely contaminant -empirically treat with Levaquin and Zosyn ACUTE RENAL FAILURE -crea 2, baseline <1 -likely secondary to dehydration, acute illness, and recent lasix use -IVF hydration -avoid nephrotoxic agents -improving ELEVATED TROPONIN NSTEMI -0.191->0.5 -ECHO:: * The study was technically limited due to poor acoustic windows. * Sinus rhythm at 85 bpm is noted. * The left ventricular cavity is small. * There is moderate concentric left ventricular hypertrophy. 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 * The remaining myocardial segments reveals normal wall motion to hyperkineisis. * The LV Ejection Fraction = >70 %. * The aortic valve is severely calcified, with decreased excursion noted on 2D imaging. * Diastolic dysfunction, Grade II (pseudonormalization pattern). -cardiology consult appreciated LEFT LOWER EXTREMITY EDEMA -Possible cellulitis, r/o DVT -doppler US -negative for any DVT THROMBOCYTOPENIA -71 today, no signs of active bleeding? secondary to acute illness -avoid anticoagulation -repeat in AM -remains low at 62 DVT PROPHYLAXIS: cannot anticoagulate d/t thrombocytopenia, hold off on SCDs until doppler US CODE STATUS: FULL CODE per my discussion with the patient and his family DISPO: Awaited Discussed with the Daughter in detailed Vital Signs: Date Time Temp Pulse Resp B/P Pulse Ox O2 Delivery O2 Flow Rate FiO2 10/17/16 13:45 79 94 10/17/16 11:38 36.9 86 23 94/55 88 Mask 8.0 10/17/16 08:01 36.7 87 38 116/74 93 Mask 6.0 10/17/16 04:04 102/53 10/17/16 04:00 93 Mask 4.0 10/17/16 03:09 36.9 92 28 101/54 93 Mask 6.0 10/17/16 01:15 88 118/65 10/17/16 00:01 93 Nasal Cannula 4.0 10/16/16 23:06 36.9 103 24 105/52 93 Nasal Cannula 4.0 10/16/16 21:30 100 18 95/49 90 4.0 10/16/16 19:22 36.8 100 18 98/41 98 10/16/16 17:15 36.8 113 20 80/49 87 89/49 10/16/16 16:38 36.9 205 17 99/60 82 10/16/16 16:00 91 Nasal Cannula 4.0 10/16/16 15:44 205 17 82 10/16/16 15:30 120 18 99/60 96 Room Air 10/16/16 15:29 124 24 99/60 10/16/16 15:14 114 21 96 10/16/16 14:59 117 18 93/59 96 10/16/16 14:55 98/63 10/16/16 14:55 116 20 98/63 94 Room Air 10/16/16 14:44 126 33 94 10/16/16 14:37 94/56 10/16/16 14:30 92/58 10/16/16 14:29 111 27 96 10/16/16 14:15 114/68 10/16/16 14:14 114 14 97 10/16/16 14:09 118 10 96 Nasal Cannula 4.0 Lab Results: Results Past 24 Hours Test 10/16/16 16:00 10/16/16 19:07 10/17/16 00:11 10/17/16 01:45 Range/Units Lactic Acid Level 15.4 14.9 12.0 0.4-2.0 mmol/L Total Creatine Kinase 203 288 39-308 U/L Creatine Kinase MB 5.6 16.5 0.5-3.6 ng/ml Creatine Kinase MB Ratio 2.8 5.7 0-3.0 Troponin I 0.500 2.970 0-0.045 ng/ml White Blood Count 40.20 4.8-10.8 K/uL Red Blood Count 4.34 4.7-6.1 M/uL Hemoglobin 13.2 14.0-18.0 g/dL Hematocrit 38.7 42-52 % Mean Corpuscular Volume 89.2 80-100 fL Mean Corpuscular Hemoglobin 30.4 25-34 pg Mean Corpuscular Hemoglobin Concent 34.1 32-36 g/dl RDW Standard Deviation 52.6 36.4-46.3 fL RDW Coefficient of Variation 16.2 11.5-14.5 % Platelet Count 68 130-400 K/uL Mean Platelet Volume 12.2 7.4-10.4 fL Sodium Level 136 136-145 mmol/L Potassium Level 4.6 3.5-5.1 mmol/L Chloride Level 101 98-107 mmol/L Carbon Dioxide Level 19 21-32 mmol/L Anion Gap 16.0 3-11 mmol/L Blood Urea Nitrogen 48 7-18 mg/dl Creatinine 2.70 0.60-1.40 mg/dl Est Creatinine Clear Calc Drug Dose 17.4 ml/min Estimated GFR () 23.5 Estimated GFR (Non- 20.3 BUN/Creatinine Ratio 17.8 10-20 Random Glucose 401 70-99 mg/dl Calcium Level 7.9 8.5-10.1 mg/dl Beta-Hydroxybutyric Acid 1.80 0.2-2.81 mg/dL Bedside Glucose 314 70-99 mg/dl Test 10/17/16 03:08 10/17/16 04:02 10/17/16 04:57 10/17/16 05:36 Range/Units Bedside Glucose 282 297 285 70-99 mg/dl White Blood Count 27.69 4.8-10.8 K/uL Red Blood Count 4.19 4.7-6.1 M/uL Hemoglobin 12.7 14.0-18.0 g/dL Hematocrit 36.7 42-52 % Mean Corpuscular Volume 87.6 80-100 fL Mean Corpuscular Hemoglobin 30.3 25-34 pg Mean Corpuscular Hemoglobin Concent 34.6 32-36 g/dl RDW Standard Deviation 52.1 36.4-46.3 fL RDW Coefficient of Variation 16.2 11.5-14.5 % Platelet Count 62 130-400 K/uL Mean Platelet Volume 12.2 7.4-10.4 fL Nucleated RBC Absolute Count (auto) 0.03 0-0 K/uL Nucleated Red Blood Cells % 0.1 % Sodium Level 138 136-145 mmol/L Potassium Level 4.2 3.5-5.1 mmol/L Chloride Level 103 98-107 mmol/L Carbon Dioxide Level 23 21-32 mmol/L Anion Gap 12.0 3-11 mmol/L Blood Urea Nitrogen 49 7-18 mg/dl Creatinine 2.50 0.60-1.40 mg/dl Est Creatinine Clear Calc Drug Dose 20.7 ml/min Estimated GFR () 25.8 Estimated GFR (Non- 22.3 BUN/Creatinine Ratio 19.7 10-20 Random Glucose 251 70-99 mg/dl Estimated Average Glucose 123 mg/dl Hemoglobin A1c 5.9 4.5-5.6 % Lactic Acid Level 6.4 0.4-2.0 mmol/L Calcium Level 7.9 8.5-10.1 mg/dl Magnesium Level 2.3 1.8-2.4 mg/dl Total Bilirubin 1.0 0.2-1 mg/dl Aspartate Amino Transf (AST/SGOT) 67 15-37 U/L Alanine Aminotransferase (ALT/SGPT) 62 12-78 U/L Alkaline Phosphatase 147 45-117 U/L Total Creatine Kinase 242 39-308 U/L Creatine Kinase MB 15.1 0.5-3.6 ng/ml Creatine Kinase MB Ratio 6.2 0-3.0 Troponin I 3.780 0-0.045 ng/ml Total Protein 5.1 6.4-8.2 gm/dl Albumin 2.3 3.4-5.0 gm/dl Globulin 2.8 2.5-4.0 gm/dl Albumin/Globulin Ratio 0.8 0.9-2 Triglycerides Level 157 0-150 mg/dl Cholesterol Level 69 0-200 mg/dl HDL Cholesterol 8 mg/dl LDL Cholesterol, Calculated 30 mg/dl VLDL Cholesterol, Calculated 31 mg/dl Cholesterol/HDL Ratio 8.6 Test 10/17/16 06:07 10/17/16 06:50 10/17/16 08:26 10/17/16 09:19 Range/Units Bedside Glucose 205 218 169 124 70-99 mg/dl Test 10/17/16 10:11 10/17/16 10:48 10/17/16 12:09 10/17/16 13:25 Range/Units Bedside Glucose 127 133 147 70-99 mg/dl Arterial Blood pH 7.40 7.35-7.45 Arterial Blood Partial Pressure CO2 34 35-46 mmHg Arterial Blood Partial Pressure O2 64 80-95 mm/Hg Arterial Blood HCO3 21 19-24 mmol/L Arterial Blood Oxygen Saturation 92.1 90-95 % Arterial Blood Base Excess -3.5 -9-1.8 mEq/L Arterial Blood Gas Delivery 15 L Kenny Test POS POS
[2016-10-17] MEDS: INSULIN ASPART 100 UNITS/ML 3 ML PEN SC SCH ×2 (17:43→20:24)
[2016-10-17] MEDS ORDERED: VANCOMYCIN INJ 1,000 MG in SODIUM CHLORIDE 0.9% 250ML 250 ML IV SCH (22:00)
[2016-10-18] VITALS (13 sets, daily range): BP systolic 97–138; BP diastolic 59–86; PULSE 84–121; TEMP 36.4–38.3; O2SAT 9–99
[2016-10-18] MEDS ORDERED: METOPROLOL TARTRATE 1 MG/ML VIAL ONE (01:25)
[2016-10-18] MEDS: PIPERACILL/TAZOBAC IV 3.375 GM in DEXTROSE 5% 100ML 100 ML IV SCH ×3 (01:33→17:37)
[2016-10-18] MEDS ORDERED: METOPROLOL TARTRATE 1 MG/ML VIAL IV STA ×2 (01:49→04:16)
[2016-10-18] MEDS ORDERED: FUROSEMIDE INJ 80 MG in SYRINGE 0 ML IV STA (02:16)
[2016-10-18] MEDS ORDERED: DIGOXIN IV 250 MCG in SYRINGE 9 ML IV STA (02:16)
[2016-10-18 02:57] LABS: BUN/CREATININE RATIO 26.4 (10-20); CALCIUM 7.6 mg/dl (8.5-10.1); CREATININE 2.1 mg/dl (0.60-1.40); MAGNESIUM 2.5 mg/dl (1.8-2.4); POTASSIUM 4.3 mmol/L (3.5-5.1)
[2016-10-18 03:00] LABS: ALB/GLOB RATIO 0.8 (0.9-2); PHOSPHORUS 2.5 mg/dl (2.5-4.9)
[2016-10-18 03:09] LABS: MEAN CELL VOLUME 88.2 fL (80-100); MEAN CORPUSCULAR HEMOGLOBIN 30.4 pg (25-34); MEAN CORPUSCULAR HGB CONC 34.5 g/dl (32-36); MEAN PLATELET VOLUME 11.8 fL (7.4-10.4); PLATELET COUNT 55 K/uL (130-400); PLT ESTIMATE DECREASED; RED BLOOD COUNT 4.31 M/uL (4.7-6.1); WHITE BLOOD COUNT 16.59 K/uL (4.8-10.8)
[2016-10-18] MEDS: LEVOFLOXACIN / D5W 750 MG in PREMIXED IN D5W 150 ML IV SCH (05:38)
--- NOTE | 2016-10-18 06:20 | Clinical Documentation Query ---
Dr. ALFAROBANNER : CLINICAL DOCUMENTATION QUERY Patient is an 86 year old male admitted with severe sepsis secondary to pneumonia, likely UTI, and possible cellulitis. Patient recieved multiple liters of NSS in addition to maintenance IVF since admission. Chest radiograph read to include congestive failure. Net I/O positive to date for over 6 liters. Nocturnalist notified of increased HR and hypoxemia. Patient was treated with IV Lopressor, Digoxin, and IV Lasix in addition to Bi-PAP therapy and supplemental oxygen. Echocardiogram demonstrated an LVEF of > 70% with Grade II diastolic dysfunction. Improvement noted in HR and respiratory rate In your clinical opinion is this patient being managed for: (+ ) Acute on chronic diastolic congestive heart failure ( ) Other explanation of clinical findings (Please Explain) ( ) Unable to determine (Please Define) ( ) Need to Discuss ( ) Not Agree The medical record reflects the following clinical findings, treatment, and risk factors. Clinical Indicators: As above Treatment: Patient was treated with IV Lopressor, Digoxin, and IV Lasix in addition to Bi-PAP therapy and supplemental oxygen. Risk Factors: Atrial fibrillation with rapid ventricular response, IVF administration Please clarify and document your clinical opinion in the progress notes and discharge summary. Terms such as "probable", "suspected", "likely", "questionable", "possible", or "still to be ruled out" are acceptable. IF IN AGREEMENT, YOU MUST DOCUMENT ABOVE DIAGNOSTIC STATEMENT IN DAILY PROGRESS NOTES AND DISCHARGE SUMMARY. This document is not part of the patient's record. Thank You, Kedar Rooney, ERIC [phone]
[2016-10-18] MEDS: METOPROLOL TARTRATE 25 MG TAB PO SCH ×3 (07:51→22:05)
[2016-10-18] MEDS: INSULIN ASPART 100 UNITS/ML 3 ML PEN SC SCH ×4 (07:52→21:45)
[2016-10-18] MEDS: ACETAMINOPHEN 325 MG TAB PO PRN (07:54)
--- NOTE | 2016-10-18 09:55 | Cardiology Follow-Up ---
Subjective General Date of Service: Oct 18, 2016. Chief Complaint: NSTEMI Pt evaluation today including: conversation w/ patient, conversation w/ family , physical exam, chart review, lab review, review of studies, review of inpatient medication list History of Present Illness Patient seen and examined. and daughter at bedside. Received IV Lopressor and digoxin overnight along with discontinuation of IVF's , 80 mg IV furosemide. Currently on BiPaP. Looks much more comfortable. Breathing easier. No chest pain. No tachypalpitations + Lower back pain Telemetry: Reverting to atrial fibrillation with a rapid ventricular response ~ 00:59:46. Currently in atrial fibrillation around 100 bpm. EKG dated and timed 18-OCT-2016 @ 06:45:23: Atrial fibrillation with rapid ventricular response (115 bpm), ST & T wave abnormality, consider inferolateral ischemia Allergies Coded Allergies: No Known Allergies (Verified , 10/16/16) Social History Smoking Status: Never Smoker Hx Tobacco Use In Past Year?: No Problem List Medical Problems: (1) ARF (acute renal failure) Status: Acute (2) Atrial fibrillation with RVR Status: Acute (3) Pneumonia Status: Acute Physical Exam Vital Signs Last Vital Signs Documentation Date Time Temp Pulse Resp B/P Pulse Ox O2 Delivery O2 Flow Rate FiO2 10/18/16 08:00 9 BiPAP 80 10/18/16 07:51 38.3 114 22 113/74 10/18/16 05:52 15.0 Physical Exam Constitutional: Level of Distress: acutely ill, chronically ill Neck: pertinent finding (Unable to assess JVD. ) Lungs: Respiratory effort: no dyspnea Auscultation: no wheezing, deminished air movement, decreased breath sounds , rhonchi, rales/crackles on the right Cardiovascular: Heart Auscultation: tachycardia, irregular rate rhythm Abdomen: Bowel Sounds: normal Extremities: edema (1-2+), pertinent finding (Considerable improved erythema/ cellulitis) Neurologic: Cranial Nerves: grossly intact Assessment and Plan Assessment and Plan 86 year old male admitted with severe sepsis, evidence of community acquired pneumonia, urinary tract infection, and left lower extremity cellulitis noted on presentation Severe sepsis Improved. Treatment as per Hospitalist Service. Atrial fibrillation with a rapid ventricular response Increase Lopressor to 12.5 mg every six hours for additional rate control. Risks of antiplatelet and anticoagulation still appear to be greater than the benefit at this time. NSTEMI Medical management appears to be the best option at this time. Treatments limited by hypotension, acute kidney injury, thrombocytopenia, abnormal LFT's Continue beta-kavon therapy as above, as BP permits No heparin Add ASA if/when able. Hold off on statin given abnormal LFT's and the acute kidney injury. Congestive heart failure [place] to be secondary to fluid resuscitation Check CXR today PRN Furosemide Acute kidney injury Multifactorial - infection, intravascular volume depletion, NSAID (ibuprofen ) use, hypotension, atrial fibrillation Follow CARDIOLOGY ATTENDING ADDENDUM: The patient was seen and personally examined. Agree with Chinedu Schmitz PA-C's findings and plans as documented above.Elderly gentleman admitted with infection which is the main issue. Currently hemodynamically and would continue medical management. Laboratory Results Last 24 Hours Test 10/17/16 10:11 10/17/16 10:48 10/17/16 12:09 10/17/16 13:25 Bedside Glucose 127 mg/dl 133 mg/dl 147 mg/dl Arterial Blood pH 7.40 Arterial Blood Partial Pressure CO2 34 mmHg Arterial Blood Partial Pressure O2 64 mm/Hg Arterial Blood HCO3 21 mmol/L Arterial Blood Oxygen Saturation 92.1 % Arterial Blood Base Excess -3.5 mEq/L Arterial Blood Gas Delivery 15 L Kenny Test POS Test 10/17/16 16:28 10/17/16 20:17 10/17/16 20:19 10/18/16 02:25 Bedside Glucose 150 mg/dl 165 mg/dl Random Vancomycin Level 9.7 mcg/ml 21.3 mcg/ml White Blood Count 16.59 K/uL Red Blood Count 4.31 M/uL Hemoglobin 13.1 g/dL Hematocrit 38.0 % Mean Corpuscular Volume 88.2 fL Mean Corpuscular Hemoglobin 30.4 pg Mean Corpuscular Hemoglobin Concent 34.5 g/dl RDW Standard Deviation 52.8 fL RDW Coefficient of Variation 16.3 % Platelet Count 55 K/uL Mean Platelet Volume 11.8 fL Platelet Estimate DECREASED Sodium Level 140 mmol/L Potassium Level 4.3 mmol/L Chloride Level 107 mmol/L Carbon Dioxide Level 24 mmol/L Anion Gap 9.0 mmol/L Blood Urea Nitrogen 56 mg/dl Creatinine 2.10 mg/dl Est Creatinine Clear Calc Drug Dose 24.6 ml/min Estimated GFR () 31.8 Estimated GFR (Non- 27.5 BUN/Creatinine Ratio 26.4 Random Glucose 143 mg/dl Calcium Level 7.6 mg/dl Phosphorus Level 2.5 mg/dl Magnesium Level 2.5 mg/dl Total Bilirubin 1.1 mg/dl Aspartate Amino Transf (AST/SGOT) 76 U/L Alanine Aminotransferase (ALT/SGPT) 64 U/L Alkaline Phosphatase 130 U/L Total Protein 5.3 gm/dl Albumin 2.3 gm/dl Globulin 3.0 gm/dl Albumin/Globulin Ratio 0.8 Test 10/18/16 06:42 Bedside Glucose 108 mg/dl
--- NOTE | 2016-10-18 10:56 | DIAGNOSTIC IMAGING REPORT ---
CHEST ONE VIEW PORTABLE CLINICAL HISTORY: Ingested failure COMPARISON STUDY: 10/17/2016 FINDINGS: The heart remains enlarged. There is continued radiographic evidence of congestive failure and mild interstitial edema. There are moderate bilateral pleural effusions with bibasal airspace opacities, likely are presenting compressive atelectasis. [A bibasal inflammatory process could appear similar. IMPRESSION: 1. Persistent congestive failure. Increasing bilateral pleural effusions with bibasal airspace opacities Electronically signed by: Grary Cosby M.D. 10/18/2016 10:55 AM Dictated Date/Time: 10/18/2016 10:54 AM
--- NOTE | 2016-10-18 11:43 | Pharmacy Progress Note ---
Pharmacy Antibiotic Prog Note Date of Service: Oct 18, 2016. Subjective: The patient is currently on day # 3 of vancomycin IV therapy for sepsis secondary to UTI, pneumonia. Objective: Height (Feet): 5 Height (Inches): 6.00 Weight (Kilograms): 80.900 Levels: Item Value Date Time Random Vancomycin Level 9.7 mcg/ml 10/17/162016 Random Vancomycin Level 21.3 mcg/ml 10/18/16 0225 Lab Results (24hrs): Laboratory Tests Test 10/18/16 02:25 BUN/Creatinine Ratio 26.4 Blood Urea Nitrogen 56 mg/dl Creatinine 2.10 mg/dl White Blood Count 16.59 K/uL Micro Results: SPEC #: [id number] TROY: 10/16/16 STATUS: RES REQ #: [id number] RECD: 10/16/16 [facility] DR: Ulysses Lorenzana MD SOURCE: URINE CATH ENTR: 10/16/[address]: Tamara Toribio, D.OBobby [facility]: ORDERED: CULTURE UR CATH Procedure Result Verified Site URINE CULTURE Preliminary 10/18/16 Organism 1 STAPHYLOCOCCUS AUREUS COLONY COUNT >100,000 CFU/ml SENS SENSITIVITY TO FOLLOW 1. STAPHYLOCOCCUS AUREUS Target Route Dose RX AB Cost M.I.C. IQ ------ ----- ------ -- ------ -------- - ------ TRIMET/SULFA S <=0.5/ 9.5 * OXACILLIN S <=0.25 VANCOMYCIN S 1 TETRACYCLINE S <=4 DAPTOMYCIN S <=0.5 NITROFURANTOIN S <=32 Item Value Date Time Blood Culture - Preliminary Resulted 10/16/16 1340 Blood NO GROWTH TO DATE. Blood Culture - Preliminary Resulted 10/16/16 1335 Blood NO GROWTH TO DATE. Urine Culture - Preliminary Resulted 10/16/16 0955 Urine,Catheterized Staphylococcus Aureus Recent Pertinent Medications: Item Value Date Time Vancomycin HCl 270 ml @ 125 mls/hr 10/17/16 2200 1000 mg/Sodium 2200/IV 10/17/16 2217 Chloride Piperacillin Sod/ 115 ml @ 28.75 mls/hr 10/16/16 1800 Tazobactam Sod Q8H/IV 10/18/16 1000 3.375 gm/Dextrose Levofloxacin 750 150 ml @ 100 mls/hr 10/18/16 0600 mg/Prmx Q48H/IV 10/18/16 0538 Assessment & Plan: ASSESSMENT: * Urine cultures have resulted as MSSA so consideration could be given to d/c vancomycin but we do not have a nasal MRSA swab and the patient was initially worsening before vancomycin was added to the Levaquin and Zosyn * The random level this AM indicates a need to re-dose later today * SCr still unstable and not yet at baseline so will need to continue with one time doses of vancomycin PLAN: * Vancomycin 1 gm (~15 mg/kg based upon initial weight of 66 kg) - I have nursing checking the weight right now to get an accurate weight in case the vancomycin dose will need increased * Random level w/ AM labs * MRSA nasal swab ordered to further assess if vancomycin is necessary Pharmacy will continue to follow and will adjust dose/frequency as necessary. Thank you
[2016-10-18] MEDS ORDERED: VANCOMYCIN INJ 1,000 MG in SODIUM CHLORIDE 0.9% 250ML 250 ML IV ONE (14:00)
--- NOTE | 2016-10-18 15:03 | Progress Note ---
Internal Med Progress Note Date of Service: Oct 18, 2016. Provider Documentation: SUBJECTIVE: The patient was seen and examined poor communication due to Language barrier Not in any distress Clinically better Has had an episode of AF with RVR last night Complains of some back pain OBJECTIVE: Vital Signs-as noted below Exam: General-no distress at rest Eyes-normal ENT-normal Neck-supple Lungs-decreased breath sound bilaterally Crackles right base Heart-regular,no murmur appreciated Abdomen-benign Extremities-1 + edema bilaterally Right >Left with Redness Neuro-AA Generally weak,no focal neuro deficit Lab data as noted below. ASSESSMENT & PLAN: SEVERE SEPSIS Admitted with symptoms of Weakness ,back pain and fall Met severe sepsis criteria WBC count: 14K, Lactate 13, hypotension, tachycardia, afebrile Likely UTI and Pneumonia, possible cellulitis -empirically treat with Levaquin, and Zosyn. -later on Vancomycin was added -received adequet IVF and can not give more due to Lung congestion -Lactic acid and WCC are trending down -Much better today -Blood cultures negative -Urine culture Staph -continue with current antibiotics COMMUNITY ACQUIRED PNEUMONIA -CXR with right basilar consolidation -negative for Flu -has been on Zosyn,Levaquin and Vanco -clinically a little better HYPOTENSION -BP as low as 60s systolically -likely secondary to sepsis versus Cardizem drip. BP was stable on arrival -Cardizem drip stopped -remains on the lower side -will try to give more fluid -may need pressors if not improved Acute on Chronic Diastolic Heart Failure With Hypoxemia Likely secondary to sepsis,AF and recent fluid administration complicated by congestion Check ABG-low CO2 and Low O2 On BIPAP now and maintaining saturation CXR-consisted with CHF will give more lasix Atrial Fibrillation with RVR Received BB and Digoxin Rate in controlled URINARY TRACT INFECTION -check culture-staph aureus.Likely contaminant -empirically treat with Levaquin and Zosyn Chronic Back pain Has Lumbar osteoarthritis Will try IV Tylenol for pain ACUTE RENAL FAILURE -crea 2, baseline <1 -likely secondary to dehydration, acute illness, and recent lasix use -IVF hydration -avoid nephrotoxic agents -improving and stable ELEVATED TROPONIN NSTEMI -0.191->0.5 -ECHO:: * The study was technically limited due to poor acoustic windows. * Sinus rhythm at 85 bpm is noted. * The left ventricular cavity is small. * There is moderate concentric left ventricular hypertrophy. 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 * The remaining myocardial segments reveals normal wall motion to hyperkineisis. * The LV Ejection Fraction = >70 %. * The aortic valve is severely calcified, with decreased excursion noted on 2D imaging. * Diastolic dysfunction, Grade II (pseudonormalization pattern). -cardiology consult appreciated LEFT LOWER EXTREMITY EDEMA -Possible cellulitis, r/o DVT -doppler US -negative for any DVT THROMBOCYTOPENIA -71 today, no signs of active bleeding? secondary to acute illness -avoid anticoagulation -repeat in AM -remains low at 62 DVT PROPHYLAXIS: cannot anticoagulate d/t thrombocytopenia, hold off on SCDs until doppler US CODE STATUS: FULL CODE per my discussion with the patient and his family DISPO: Awaited Discussed with the Daughter in detailed again today 10/18/16 Vital Signs: Date Time Temp Pulse Resp B/P Pulse Ox O2 Delivery O2 Flow Rate FiO2 10/18/16 14:34 93 96 80 10/18/16 12:00 BiPAP 80 10/18/16 11:13 37.2 101 18 97/59 90 Non-Rebreather 10/18/16 08:00 BiPAP 80 10/18/16 07:51 38.3 114 22 113/74 92 BiPAP 10/18/16 05:52 92 Non-Rebreather 15.0 10/18/16 04:31 107 119/69 10/18/16 04:09 36.9 107 24 119/69 97 BiPAP 80 10/18/16 04:00 BiPAP 80 10/18/16 02:33 113 10/18/16 02:00 119 99 80 10/18/16 01:32 123 114/86 10/18/16 01:26 114/86 10/18/16 00:07 36.9 84 20 116/76 99 BiPAP 80 10/17/16 23:59 BiPAP 80 10/17/16 20:46 86 95 100 10/17/16 20:07 36.9 84 18 119/84 97 84 10/17/16 20:00 BiPAP 100 10/17/16 16:00 97 BiPAP 10/17/16 15:40 36.8 75 18 103/69 99 Lab Results: Results Past 24 Hours Test 10/17/16 16:28 10/17/16 20:17 10/17/16 20:19 10/18/16 02:25 Range/Units Bedside Glucose 150 165 70-99 mg/dl Random Vancomycin Level 9.7 21.3 mcg/ml White Blood Count 16.59 4.8-10.8 K/uL Red Blood Count 4.31 4.7-6.1 M/uL Hemoglobin 13.1 14.0-18.0 g/dL Hematocrit 38.0 42-52 % Mean Corpuscular Volume 88.2 80-100 fL Mean Corpuscular Hemoglobin 30.4 25-34 pg Mean Corpuscular Hemoglobin Concent 34.5 32-36 g/dl RDW Standard Deviation 52.8 36.4-46.3 fL RDW Coefficient of Variation 16.3 11.5-14.5 % Platelet Count 55 130-400 K/uL Mean Platelet Volume 11.8 7.4-10.4 fL Platelet Estimate DECREASED Sodium Level 140 136-145 mmol/L Potassium Level 4.3 3.5-5.1 mmol/L Chloride Level 107 98-107 mmol/L Carbon Dioxide Level 24 21-32 mmol/L Anion Gap 9.0 3-11 mmol/L Blood Urea Nitrogen 56 7-18 mg/dl Creatinine 2.10 0.60-1.40 mg/dl Est Creatinine Clear Calc Drug Dose 24.6 ml/min Estimated GFR () 31.8 Estimated GFR (Non- 27.5 BUN/Creatinine Ratio 26.4 10-20 Random Glucose 143 70-99 mg/dl Calcium Level 7.6 8.5-10.1 mg/dl Phosphorus Level 2.5 2.5-4.9 mg/dl Magnesium Level 2.5 1.8-2.4 mg/dl Total Bilirubin 1.1 0.2-1 mg/dl Aspartate Amino Transf (AST/SGOT) 76 15-37 U/L Alanine Aminotransferase (ALT/SGPT) 64 12-78 U/L Alkaline Phosphatase 130 45-117 U/L Total Protein 5.3 6.4-8.2 gm/dl Albumin 2.3 3.4-5.0 gm/dl Globulin 3.0 2.5-4.0 gm/dl Albumin/Globulin Ratio 0.8 0.9-2 Test 10/18/16 06:42 10/18/16 11:45 Range/Units Bedside Glucose 108 132 70-99 mg/dl Microbiology Results 10/18/16 MRSA DNA Surveillance Screen - Final, Complete Specimen Negative for MRSA by DNA Probe
[2016-10-18] MEDS ORDERED: FUROSEMIDE INJ 40 MG in SYRINGE 0 ML IV SCH (15:45)
[2016-10-18] MEDS: MoRPHine SULFATE 2 MG/ML CARP IV PRN (21:37)
[2016-10-19] VITALS (13 sets, daily range): BP systolic 110–154; BP diastolic 66–100; PULSE 18–113; TEMP 36.6–37.2; O2SAT 93–100
[2016-10-19] MEDS: PIPERACILL/TAZOBAC IV 3.375 GM in DEXTROSE 5% 100ML 100 ML IV SCH ×3 (03:06→16:04)
[2016-10-19] MEDS: METOPROLOL TARTRATE 25 MG TAB PO SCH (03:07)
[2016-10-19] MEDS: MoRPHine SULFATE 2 MG/ML CARP IV PRN (03:14)
[2016-10-19 06:53] LABS: BUN/CREATININE RATIO 33.5 (10-20); CALCIUM 8.2 mg/dl (8.5-10.1); CREATININE 1.7 mg/dl (0.60-1.40); MAGNESIUM 2.1 mg/dl (1.8-2.4); POTASSIUM 3.4 mmol/L (3.5-5.1)
[2016-10-19] MEDS: INSULIN ASPART 100 UNITS/ML 3 ML PEN SC SCH ×4 (07:00→20:35)
[2016-10-19 07:20] LABS: HEMATOCRIT 39.2 % (42-52); MEAN CELL VOLUME 87.1 fL (80-100); MEAN CORPUSCULAR HEMOGLOBIN 30.7 pg (25-34); MEAN CORPUSCULAR HGB CONC 35.2 g/dl (32-36); MEAN PLATELET VOLUME 12.2 fL (7.4-10.4); PLATELET COUNT 51 K/uL (130-400); WHITE BLOOD COUNT 12.36 K/uL (4.8-10.8)
[2016-10-19] MEDS ORDERED: POTASSIUM CHLORIDE 20 MEQ TABCR PO ONE (08:30)
[2016-10-19] MEDS ORDERED: METOPROLOL TARTRATE 1 MG/ML VIAL IV ONE (09:00)
--- NOTE | 2016-10-19 11:11 | Progress Note ---
Internal Med Progress Note Date of Service: Oct 19, 2016. Provider Documentation: SUBJECTIVE: The patient was seen and examined poor communication due to Language barrier Denies any symptoms today Saturating well on BIPAP OBJECTIVE: Vital Signs-as noted below Exam: General-no distress at rest Eyes-normal ENT-normal Neck-supple Lungs-decreased breath sound bilaterally Crackles right base Heart-regular,no murmur appreciated Abdomen-benign Extremities-1 + edema bilaterally -improves Right >Left with Redness Neuro-AA Generally weak,no focal neuro deficit Lab data as noted below. ASSESSMENT & PLAN: SEVERE SEPSIS Admitted with symptoms of Weakness ,back pain and fall Met severe sepsis criteria WBC count: 14K, Lactate 13, hypotension, tachycardia, afebrile Likely UTI and Pneumonia, possible cellulitis -empirically treat with Levaquin, and Zosyn. -later on Vancomycin was added -received adequet IVF and can not give more due to Lung congestion -Lactic acid and WCC are much improved -Blood cultures negative -Urine culture Staph -likely contaminant -continue with current antibiotics COMMUNITY ACQUIRED PNEUMONIA -CXR with right basilar consolidation -negative for Flu -has been on Zosyn,Levaquin and Vanco -clinically a little better HYPOTENSION -BP as low as 60s systolically -likely secondary to sepsis versus Cardizem drip. BP was stable on arrival -Cardizem drip stopped -BP is maintaining well Acute on Chronic Diastolic Heart Failure With Hypoxemia Likely secondary to sepsis,AF and recent fluid administration complicated by congestion Check ABG-low CO2 and Low O2 On BIPAP now and maintaining saturation CXR-consisted with CHF Received Lasix yesterday Hold Lasix for now Atrial Fibrillation with RVR Received BB and Digoxin Rate in controlled Swallowing difficulty Awaiting speech therapy evaluation URINARY TRACT INFECTION -check culture-staph aureus.Likely contaminant -empirically treat with Levaquin and Zosyn Chronic Back pain Has Lumbar osteoarthritis Will try IV Tylenol for pain-controlled ACUTE RENAL FAILURE -crea 2, baseline <1 -likely secondary to dehydration, acute illness, and recent lasix use -IVF hydration -avoid nephrotoxic agents -improving and stable ELEVATED TROPONIN NSTEMI -0.191->0.5 -ECHO:: * The study was technically limited due to poor acoustic windows. * Sinus rhythm at 85 bpm is noted. * The left ventricular cavity is small. * There is moderate concentric left ventricular hypertrophy. 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 * The remaining myocardial segments reveals normal wall motion to hyperkineisis. * The LV Ejection Fraction = >70 %. * The aortic valve is severely calcified, with decreased excursion noted on 2D imaging. * Diastolic dysfunction, Grade II (pseudonormalization pattern). -cardiology consult appreciated LEFT LOWER EXTREMITY EDEMA -Possible cellulitis, r/o DVT -doppler US -negative for any DVT THROMBOCYTOPENIA -71 today, no signs of active bleeding? secondary to acute illness -avoid anticoagulation -repeat in AM -remains low at 62 DVT PROPHYLAXIS: cannot anticoagulate d/t thrombocytopenia, hold off on SCDs until doppler US CODE STATUS: FULL CODE per my discussion with the patient and his family DISPO: Awaited Discussed with the Daughter in detailed again today 10/18/16 Vital Signs: Date Time Temp Pulse Resp B/P Pulse Ox O2 Delivery O2 Flow Rate FiO2 10/19/16 09:26 110 107/87 10/19/16 08:00 100 BiPAP 80 10/19/16 07:26 37.0 105 20 125/80 100 BiPAP 10/19/16 04:00 BiPAP 80 10/19/16 04:00 37.0 113 18 142/100 99 BiPAP 80 10/19/16 03:14 94 94 80 10/19/16 00:06 36.9 100 24 137/95 99 BiPAP 80 10/19/16 00:01 BiPAP 80 10/18/16 20:00 97 BiPAP 80 10/18/16 19:19 36.4 121 20 138/77 97 BiPAP 10/18/16 19:00 91 94 80 10/18/16 16:00 BiPAP 80 10/18/16 15:59 36.4 109 22 129/73 97 BiPAP 10/18/16 14:34 93 96 80 10/18/16 12:00 BiPAP 80 10/18/16 11:13 37.2 101 18 97/59 90 Non-Rebreather Lab Results: Results Past 24 Hours Test 10/18/16 11:45 10/18/16 15:57 10/18/16 20:33 10/19/16 05:56 Range/Units Bedside Glucose 132 97 210 70-99 mg/dl White Blood Count 12.36 4.8-10.8 K/uL Red Blood Count 4.50 4.7-6.1 M/uL Hemoglobin 13.8 14.0-18.0 g/dL Hematocrit 39.2 42-52 % Mean Corpuscular Volume 87.1 80-100 fL Mean Corpuscular Hemoglobin 30.7 25-34 pg Mean Corpuscular Hemoglobin Concent 35.2 32-36 g/dl RDW Standard Deviation 51.5 36.4-46.3 fL RDW Coefficient of Variation 16.1 11.5-14.5 % Platelet Count 51 130-400 K/uL Mean Platelet Volume 12.2 7.4-10.4 fL Nucleated RBC Absolute Count (auto) 0.02 0-0 K/uL Nucleated Red Blood Cells % 0.2 % Sodium Level 143 136-145 mmol/L Potassium Level 3.4 3.5-5.1 mmol/L Chloride Level 107 98-107 mmol/L Carbon Dioxide Level 26 21-32 mmol/L Anion Gap 10.0 3-11 mmol/L Blood Urea Nitrogen 57 7-18 mg/dl Creatinine 1.70 0.60-1.40 mg/dl Est Creatinine Clear Calc Drug Dose 30.4 ml/min Estimated GFR () 41.1 Estimated GFR (Non- 35.5 BUN/Creatinine Ratio 33.5 10-20 Random Glucose 112 70-99 mg/dl Calcium Level 8.2 8.5-10.1 mg/dl Magnesium Level 2.1 1.8-2.4 mg/dl Random Vancomycin Level 14.1 mcg/ml Test 10/19/16 06:32 Range/Units Bedside Glucose 102 70-99 mg/dl Microbiology Results 10/18/16 MRSA DNA Surveillance Screen - Final, Complete Specimen Negative for MRSA by DNA Probe
--- NOTE | 2016-10-19 11:18 | PROGRESS NOTE ---
DATE: 10/19/2016 FOLLOWUP VISIT SUBJECTIVE: The patient is an elderly Ivorian-speaking gentleman who was admitted with community-acquired pneumonia, possible UTI and decompensated congestive heart failure with atrial fibrillation. This morning he is on BiPAP and appears comfortable. He is currently in a sinus rhythm. He had an uneventful night. OBJECTIVE: VITAL SIGNS: Blood pressure is 120/80, pulse is regular at 80 beats per minute. He is in a sinus rhythm. He had a large diuresis yesterday and is negative approximately 3 liters. GENERAL: The patient is currently on BiPAP. NECK: The neck veins are flat. Carotids have good upstrokes bilaterally without bruits. Thyroid is nonpalpable. RESPIRATORY: Breath sounds equal bilaterally and clear to auscultation. CARDIOVASCULAR: Heart has a regular rhythm. Normal S1, S2. No S3, S4. No cardiac rubs or murmurs. GASTROINTESTINAL: Abdomen soft, nontender, without organomegaly. EXTREMITIES: Free of edema, digit clubbing, or cyanosis. NEUROLOGIC: Grossly intact. SKIN: Warm to touch. LYMPH NODES: Negative to palpation. LABORATORY DATA: Hemoglobin is 13.8, potassium is 3.4, creatinine is 1.7. IMPRESSION: 1. Sepsis with community-acquired pneumonia and urinary tract infection. 2. Paroxysmal atrial fibrillation. 3. Congestive heart failure. 4. Chronic renal insufficiency. RECOMMENDATIONS: Clinically, the patient is slowly improving. He did have some AFib last light and was treated with IV metoprolol. He is currently in a sinus mechanism. Potassium has been supplemented. Currently, I think he is clinically stable.
[2016-10-19] MEDS ORDERED: METOPROLOL TARTRATE 1 MG/ML VIAL IV. SCH (12:00)
[2016-10-19] MEDS: METOPROLOL TARTRATE 1 MG/ML VIAL IV. SCH ×3 (13:28→23:16)
[2016-10-20] VITALS (11 sets, daily range): BP systolic 119–161; BP diastolic 73–84; PULSE 16–86; TEMP 36.4–37.2; O2SAT 94–100
[2016-10-20] MEDS: PIPERACILL/TAZOBAC IV 3.375 GM in DEXTROSE 5% 100ML 100 ML IV SCH ×3 (02:10→18:16)
[2016-10-20] MEDS: MoRPHine SULFATE 2 MG/ML CARP IV PRN (04:27)
[2016-10-20] MEDS: LEVOFLOXACIN / D5W 750 MG in PREMIXED IN D5W 150 ML IV SCH (06:01)
[2016-10-20] MEDS: METOPROLOL TARTRATE 1 MG/ML VIAL IV. SCH ×4 (06:02→23:03)
[2016-10-20 06:06] LABS: HEMATOCRIT 38.3 % (42-52); MEAN CELL VOLUME 85.1 fL (80-100); MEAN CORPUSCULAR HEMOGLOBIN 30.4 pg (25-34); MEAN CORPUSCULAR HGB CONC 35.8 g/dl (32-36); WHITE BLOOD COUNT 16.09 K/uL (4.8-10.8)
[2016-10-20 06:13] LABS: MEAN PLATELET VOLUME 11.2 fL (7.4-10.4); PLATELET COUNT 52 K/uL (130-400)
[2016-10-20 06:34] LABS: BUN/CREATININE RATIO 34.8 (10-20); CALCIUM 8.3 mg/dl (8.5-10.1); CREATININE 1.5 mg/dl (0.60-1.40); MAGNESIUM 2.4 mg/dl (1.8-2.4); PHOSPHORUS 2.1 mg/dl (2.5-4.9); POTASSIUM 3.6 mmol/L (3.5-5.1)
[2016-10-20] MEDS: INSULIN ASPART 100 UNITS/ML 3 ML PEN SC SCH ×4 (07:00→21:00)
[2016-10-20] MEDS: ACETAMINOPHEN IV 100 ML IV PRN (08:19)
--- NOTE | 2016-10-20 15:12 | Progress Note ---
Internal Med Progress Note Date of Service: Oct 20, 2016. Provider Documentation: SUBJECTIVE: The patient was seen and examined poor communication due to Language barrier Denies any symptoms today Much better Saturating well on 2 liters NC OBJECTIVE: Vital Signs-as noted below Exam: General-no distress at rest Eyes-normal ENT-normal Neck-supple Lungs-decreased breath sound bilaterally Crackles right base Heart-regular,no murmur appreciated Abdomen-benign Extremities-1 + edema bilaterally -much improved Right >Left with Redness Neuro-AA Generally weak,no focal neuro deficit Lab data as noted below. ASSESSMENT & PLAN: SEVERE SEPSIS Admitted with symptoms of Weakness ,back pain and fall Met severe sepsis criteria WBC count: 14K, Lactate 13, hypotension, tachycardia, afebrile Likely UTI and Pneumonia, possible cellulitis -empirically treat with Levaquin, and Zosyn. -later on Vancomycin was added -received adequet IVF and can not give more due to Lung congestion -Lactic acid and WCC are much improved -Blood cultures negative -Urine culture Staph -likely contaminant -Clinically much better Vancomycin stopped -Continue Zosyn and Levaquin COMMUNITY ACQUIRED PNEUMONIA -CXR with right basilar consolidation -negative for Flu -has been on Zosyn,Levaquin and Vanco -clinically a little better HYPOTENSION -resolved -BP as low as 60s systolically -likely secondary to sepsis versus Cardizem drip. BP was stable on arrival -Cardizem drip stopped -BP is maintaining well Acute on Chronic Diastolic Heart Failure With Hypoxemia Likely secondary to sepsis,AF and recent fluid administration complicated by congestion Check ABG-low CO2 and Low O2 On BIPAP now and maintaining saturation CXR-consisted with CHF Received Lasix yesterday Hold Lasix for now Atrial Fibrillation with RVR Received BB and Digoxin Rate in controlled Swallowing difficulty Awaiting speech therapy evaluation Appreciate Recommendation URINARY TRACT INFECTION -check culture-staph aureus.Likely contaminant -empirically treat with Levaquin and Zosyn Chronic Back pain Has Lumbar osteoarthritis Will try IV Tylenol for pain-controlled PT/OT evaluation May need further imaging ACUTE RENAL FAILURE -crea 2, baseline <1 -likely secondary to dehydration, acute illness, and recent lasix use -IVF hydration -avoid nephrotoxic agents -improving and stable ELEVATED TROPONIN NSTEMI -0.191->0.5 -ECHO:: * The study was technically limited due to poor acoustic windows. * Sinus rhythm at 85 bpm is noted. * The left ventricular cavity is small. * There is moderate concentric left ventricular hypertrophy. 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 * The remaining myocardial segments reveals normal wall motion to hyperkineisis. * The LV Ejection Fraction = >70 %. * The aortic valve is severely calcified, with decreased excursion noted on 2D imaging. * Diastolic dysfunction, Grade II (pseudonormalization pattern). -cardiology consult appreciated LEFT LOWER EXTREMITY EDEMA -Possible cellulitis, r/o DVT -doppler US -negative for any DVT THROMBOCYTOPENIA -71 today, no signs of active bleeding? secondary to acute illness -avoid anticoagulation -repeat in AM -remains low at 50s DVT PROPHYLAXIS: cannot anticoagulate d/t thrombocytopenia, hold off on SCDs until doppler US CODE STATUS: DNR As per patient's wish and after discussion with the Daughter DISPO: Awaited Discussed with the Daughter in detailed again today 10/18/16,10/20/16 Vital Signs: Date Time Temp Pulse Resp B/P Pulse Ox O2 Delivery O2 Flow Rate FiO2 10/20/16 12:00 98 Nasal Cannula 2.0 10/20/16 12:00 80 124/76 10/20/16 11:42 37.0 83 18 159/84 98 2.0 10/20/16 08:00 37.0 84 18 137/80 100 Nasal Cannula 2.0 10/20/16 08:00 100 Nasal Cannula 2.0 10/20/16 06:02 81 134/76 10/20/16 04:30 99 Nasal Cannula 3.0 10/20/16 04:00 36.9 86 16 142/78 94 Nasal Cannula 3.0 10/20/16 00:00 100 Nasal Cannula 4.0 10/19/16 23:42 36.7 72 22 154/83 100 Nasal Cannula 4.0 10/19/16 23:16 74 10/19/16 20:30 100 Nasal Cannula 4.0 10/19/16 19:21 37.2 80 20 124/72 100 Nasal Cannula 4.0 10/19/16 17:53 87 121/66 10/19/16 16:00 100 Nasal Cannula 4.0 10/19/16 15:34 36.6 88 20 121/66 100 Nasal Cannula 4.0 Lab Results: Results Past 24 Hours Test 10/19/16 16:06 10/19/16 20:14 10/20/16 05:10 10/20/16 06:35 Range/Units Bedside Glucose 171 176 118 70-99 mg/dl White Blood Count 16.09 4.8-10.8 K/uL Red Blood Count 4.50 4.7-6.1 M/uL Hemoglobin 13.7 14.0-18.0 g/dL Hematocrit 38.3 42-52 % Mean Corpuscular Volume 85.1 80-100 fL Mean Corpuscular Hemoglobin 30.4 25-34 pg Mean Corpuscular Hemoglobin Concent 35.8 32-36 g/dl RDW Standard Deviation 49.1 36.4-46.3 fL RDW Coefficient of Variation 16.0 11.5-14.5 % Platelet Count 52 130-400 K/uL Mean Platelet Volume 11.2 7.4-10.4 fL Sodium Level 145 136-145 mmol/L Potassium Level 3.6 3.5-5.1 mmol/L Chloride Level 107 98-107 mmol/L Carbon Dioxide Level 29 21-32 mmol/L Anion Gap 9.0 3-11 mmol/L Blood Urea Nitrogen 52 7-18 mg/dl Creatinine 1.50 0.60-1.40 mg/dl Est Creatinine Clear Calc Drug Dose 34.4 ml/min Estimated GFR () 47.8 Estimated GFR (Non- 41.3 BUN/Creatinine Ratio 34.8 10-20 Random Glucose 120 70-99 mg/dl Calcium Level 8.3 8.5-10.1 mg/dl Phosphorus Level 2.1 2.5-4.9 mg/dl Magnesium Level 2.4 1.8-2.4 mg/dl Test 10/20/16 11:32 Range/Units Bedside Glucose 148 70-99 mg/dl
[2016-10-21] VITALS (10 sets, daily range): BP systolic 105–155; BP diastolic 59–89; PULSE 70–124; TEMP 36.3–37; O2SAT 91–98
[2016-10-21] MEDS: PIPERACILL/TAZOBAC IV 3.375 GM in DEXTROSE 5% 100ML 100 ML IV SCH ×3 (02:19→18:14)
[2016-10-21] MEDS: ACETAMINOPHEN IV 100 ML IV PRN (04:30)
[2016-10-21] MEDS: MoRPHine SULFATE 2 MG/ML CARP IV PRN (05:20)
[2016-10-21] MEDS: METOPROLOL TARTRATE 1 MG/ML VIAL IV. SCH ×2 (05:22→11:34)
[2016-10-21] MEDS ORDERED: POLYETHYLENE (MIRALAX) 17 GM PACK PO PRN (05:45)
[2016-10-21 06:11] LABS: CALCIUM 8.1 mg/dl (8.5-10.1); CREATININE 1.4 mg/dl (0.60-1.40); POTASSIUM 3.7 mmol/L (3.5-5.1)
[2016-10-21 06:23] LABS: HEMATOCRIT 41.1 % (42-52); MEAN CELL VOLUME 87.4 fL (80-100); MEAN CORPUSCULAR HEMOGLOBIN 30.4 pg (25-34); MEAN CORPUSCULAR HGB CONC 34.8 g/dl (32-36); MEAN PLATELET VOLUME 12.1 fL (7.4-10.4); PLATELET COUNT 60 K/uL (130-400); PLT ESTIMATE DECREASED; WHITE BLOOD COUNT 16.27 K/uL (4.8-10.8)
[2016-10-21] MEDS: INSULIN ASPART 100 UNITS/ML 3 ML PEN SC SCH ×4 (07:00→21:53)
[2016-10-21] MEDS ORDERED: NURSING VERBAL MED ORDER ONE ×2 (07:30→15:30)
[2016-10-21] MEDS ORDERED: BISACODYL 10 MG SUPP ONE (07:32)
[2016-10-21] MEDS: BISACODYL 10 MG SUPP PR PRN ×2 (08:00→13:13)
[2016-10-21] MEDS ORDERED: SOD PHOSPHATE/SOD BIPHOSPHATE ENEMA 132 ML BTL PR PRN (08:00)
--- NOTE | 2016-10-21 10:40 | Progress Note ---
Internal Med Progress Note Date of Service: Oct 21, 2016. Provider Documentation: SUBJECTIVE: The patient was seen and examined poor communication due to Language barrier Communicated through the [employer] Work[employer] Bowel not moved for the last 7 days No other issue OBJECTIVE: Vital Signs-as noted below Exam: General-no distress at rest Eyes-normal ENT-normal Neck-supple Lungs-decreased breath sound bilaterally Crackles right base Heart-regular,no murmur appreciated Abdomen-benign Extremities-1 + edema bilaterally -much improved Right >Left with Redness Neuro-AA Generally weak,no focal neuro deficit Lab data as noted below. ASSESSMENT & PLAN: Constipation Dulcolax and Fleet enema now MOM PRN SEVERE SEPSIS Admitted with symptoms of Weakness ,back pain and fall Met severe sepsis criteria WBC count: 14K, Lactate 13, hypotension, tachycardia, afebrile Likely UTI and Pneumonia, possible cellulitis -empirically treat with Levaquin, and Zosyn. -later on Vancomycin was added -received adequet IVF and can not give more due to Lung congestion -Lactic acid and WCC are much improved -Blood cultures negative -Urine culture Staph -likely contaminant -Clinically much better Vancomycin stopped -Continue Zosyn and Levaquin for now COMMUNITY ACQUIRED PNEUMONIA -CXR with right basilar consolidation -negative for Flu -has been on Zosyn,Levaquin and Vanco -clinically a little better HYPOTENSION -resolved -BP as low as 60s systolically -likely secondary to sepsis versus Cardizem drip. BP was stable on arrival -Cardizem drip stopped -BP is maintaining well Acute on Chronic Diastolic Heart Failure With Hypoxemia Likely secondary to sepsis,AF and recent fluid administration complicated by congestion Check ABG-low CO2 and Low O2 On BIPAP now and maintaining saturation CXR-consisted with CHF Received Lasix yesterday Hold Lasix for now Atrial Fibrillation with RVR Received BB and Digoxin Rate in controlled and reverted to SR Swallowing difficulty Awaiting speech therapy evaluation Appreciate Recommendation URINARY TRACT INFECTION -check culture-staph aureus.Likely contaminant -empirically treat with Levaquin and Zosyn Chronic Back pain Has Lumbar osteoarthritis Will try IV Tylenol for pain-controlled PT/OT evaluation May need further imaging ACUTE RENAL FAILURE -crea 2, baseline <1 -likely secondary to dehydration, acute illness, and recent lasix use -IVF hydration -avoid nephrotoxic agents -improving and stable ELEVATED TROPONIN NSTEMI -0.191->0.5 -ECHO:: * The study was technically limited due to poor acoustic windows. * Sinus rhythm at 85 bpm is noted. * The left ventricular cavity is small. * There is moderate concentric left ventricular hypertrophy. 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 * The remaining myocardial segments reveals normal wall motion to hyperkineisis. * The LV Ejection Fraction = >70 %. * The aortic valve is severely calcified, with decreased excursion noted on 2D imaging. * Diastolic dysfunction, Grade II (pseudonormalization pattern). -cardiology consult appreciated LEFT LOWER EXTREMITY EDEMA -Possible cellulitis, r/o DVT -doppler US -negative for any DVT THROMBOCYTOPENIA -71 today, no signs of active bleeding? secondary to acute illness -avoid anticoagulation -repeat in AM -remains low at 50s DVT PROPHYLAXIS: cannot anticoagulate d/t thrombocytopenia, hold off on SCDs until doppler US CODE STATUS: DNR As per patient's wish and after discussion with the Daughter DISPO: Awaited Discussed with the Daughter in detailed again today 10/18/16,10/20/16 Vital Signs: Date Time Temp Pulse Resp B/P Pulse Ox O2 Delivery O2 Flow Rate FiO2 10/21/16 08:00 95 Room Air 10/21/16 07:33 37.0 81 20 106/59 95 Room Air 10/21/16 05:22 91 133/82 10/21/16 04:30 93 Room Air 10/21/16 03:54 36.7 86 18 155/89 95 Room Air 10/21/16 00:00 97 Room Air 10/20/16 23:03 83 10/20/16 23:01 37.2 75 20 161/84 98 Room Air 74 10/20/16 20:00 100 Nasal Cannula 2.0 10/20/16 19:13 36.4 75 21 135/77 100 Nasal Cannula 2.0 Humidified Oxygen 10/20/16 18:16 81 124/78 10/20/16 16:00 96 Room Air 10/20/16 15:15 36.5 75 19 119/73 96 Room Air 10/20/16 12:00 98 Nasal Cannula 2.0 10/20/16 12:00 80 124/76 10/20/16 11:42 37.0 83 18 159/84 98 2.0 Lab Results: Results Past 24 Hours Test 10/20/16 11:32 10/20/16 16:16 10/20/16 20:31 10/21/16 05:26 Range/Units Bedside Glucose 148 100 122 70-99 mg/dl White Blood Count 16.27 4.8-10.8 K/uL Red Blood Count 4.70 4.7-6.1 M/uL Hemoglobin 14.3 14.0-18.0 g/dL Hematocrit 41.1 42-52 % Mean Corpuscular Volume 87.4 80-100 fL Mean Corpuscular Hemoglobin 30.4 25-34 pg Mean Corpuscular Hemoglobin Concent 34.8 32-36 g/dl RDW Standard Deviation 51.1 36.4-46.3 fL RDW Coefficient of Variation 16.5 11.5-14.5 % Platelet Count 60 130-400 K/uL Mean Platelet Volume 12.1 7.4-10.4 fL Platelet Estimate DECREASED Sodium Level 145 136-145 mmol/L Potassium Level 3.7 3.5-5.1 mmol/L Chloride Level 109 98-107 mmol/L Carbon Dioxide Level 26 21-32 mmol/L Anion Gap 10.0 3-11 mmol/L Blood Urea Nitrogen 43 7-18 mg/dl Creatinine 1.40 0.60-1.40 mg/dl Est Creatinine Clear Calc Drug Dose 36.8 ml/min Estimated GFR () 52.0 Estimated GFR (Non- 44.9 BUN/Creatinine Ratio 31.0 10-20 Random Glucose 108 70-99 mg/dl Calcium Level 8.1 8.5-10.1 mg/dl Test 10/21/16 06:15 Range/Units Bedside Glucose 101 70-99 mg/dl
[2016-10-21] MEDS ORDERED: MAGNESIUM HYDROXIDE SUSP 30 ML UDC PO ONE (15:15)
[2016-10-21] MEDS ORDERED: MAGNESIUM HYDROXIDE SUSP 30 ML UDC PO PRN (15:15)
[2016-10-21] MEDS: METOPROLOL TARTRATE 25 MG TAB PO SCH ×2 (15:27→21:50)
[2016-10-21] MEDS: NSS + 20MEQ KCL 1000ML 1,000 ML IV SCH (15:27)
[2016-10-22] VITALS (10 sets, daily range): BP systolic 122–167; BP diastolic 66–90; PULSE 62–78; TEMP 36.5–37; O2SAT 80–98
[2016-10-22] MEDS: NSS + 20MEQ KCL 1000ML 1,000 ML IV SCH (02:29)
[2016-10-22] MEDS: METOPROLOL TARTRATE 25 MG TAB PO SCH ×4 (02:29→22:03)
[2016-10-22] MEDS: PIPERACILL/TAZOBAC IV 3.375 GM in DEXTROSE 5% 100ML 100 ML IV SCH ×3 (02:29→18:17)
[2016-10-22] MEDS: ACETAMINOPHEN 325 MG TAB PO PRN ×2 (03:43→23:39)
[2016-10-22] MEDS: LEVOFLOXACIN / D5W 750 MG in PREMIXED IN D5W 150 ML IV SCH (08:01)
[2016-10-22] MEDS: INSULIN ASPART 100 UNITS/ML 3 ML PEN SC SCH ×4 (08:37→22:03)
[2016-10-22] MEDS ORDERED: NURSING VERBAL MED ORDER ONE (11:45)
[2016-10-22] MEDS ORDERED: FUROSEMIDE INJ 40 MG in SYRINGE 0 ML IV ONE (12:00)
[2016-10-22] MEDS: NITROGLYCERIN OINT 2% 1GM PACKET EXT SCH ×3 (12:42→23:36)
--- NOTE | 2016-10-22 16:59 | Progress Note ---
Internal Med Progress Note Date of Service: Oct 22, 2016. Provider Documentation: SUBJECTIVE: The patient was seen and examined poor communication due to Language barrier Communicated through the Cooker Tender Bowel not moved for the last 7 days BP was high this morning OBJECTIVE: Vital Signs-as noted below Exam: General-no distress at rest Eyes-normal ENT-normal Neck-supple Lungs-decreased breath sound bilaterally Crackles right base Heart-regular,no murmur appreciated Abdomen-benign Extremities-1 + edema bilaterally -much improved Right >Left with Redness Neuro-AA Generally weak,no focal neuro deficit Lab data as noted below. ASSESSMENT & PLAN: Constipation Dulcolax and Fleet enema now MOM PRN SEVERE SEPSIS Admitted with symptoms of Weakness ,back pain and fall Met severe sepsis criteria WBC count: 14K, Lactate 13, hypotension, tachycardia, afebrile Likely UTI and Pneumonia, possible cellulitis -empirically treat with Levaquin, and Zosyn. -later on Vancomycin was added -received adequet IVF and can not give more due to Lung congestion -Lactic acid and WCC are much improved -Blood cultures negative -Urine culture Staph -likely contaminant -Clinically much better Vancomycin stopped -Continue Zosyn and Levaquin for now -clinically much improved COMMUNITY ACQUIRED PNEUMONIA -CXR with right basilar consolidation -negative for Flu -has been on Zosyn,Levaquin and Vanco -clinically a little better -check CXR in AM HYPOTENSION -resolved -BP as low as 60s systolically -likely secondary to sepsis versus Cardizem drip. BP was stable on arrival -Cardizem drip stopped -BP is maintaining well and running high -nitro paste applied Acute on Chronic Diastolic Heart Failure With Hypoxemia Likely secondary to sepsis,AF and recent fluid administration complicated by congestion Check ABG-low CO2 and Low O2 On BIPAP now and maintaining saturation CXR-consisted with CHF Received Lasix x2 days Atrial Fibrillation with RVR Received BB and Digoxin Rate in controlled and reverted to SR getting in and out of AF and SR Swallowing difficulty Awaiting speech therapy evaluation Appreciate Recommendation URINARY TRACT INFECTION -check culture-staph aureus.Likely contaminant -empirically treat with Levaquin and Zosyn Chronic Back pain Has Lumbar osteoarthritis Will try IV Tylenol for pain-controlled PT/OT evaluation May need further imaging on improvement ACUTE RENAL FAILURE -crea 2, baseline <1 -likely secondary to dehydration, acute illness, and recent lasix use -IVF hydration -avoid nephrotoxic agents -improving and stable -normalized ELEVATED TROPONIN NSTEMI -0.191->0.5 -ECHO:: * The study was technically limited due to poor acoustic windows. * Sinus rhythm at 85 bpm is noted. * The left ventricular cavity is small. * There is moderate concentric left ventricular hypertrophy. 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 * The remaining myocardial segments reveals normal wall motion to hyperkineisis. * The LV Ejection Fraction = >70 %. * The aortic valve is severely calcified, with decreased excursion noted on 2D imaging. * Diastolic dysfunction, Grade II (pseudonormalization pattern). -cardiology consult appreciated LEFT LOWER EXTREMITY EDEMA -Possible cellulitis, r/o DVT -doppler US -negative for any DVT THROMBOCYTOPENIA -71 today, no signs of active bleeding? secondary to acute illness -avoid anticoagulation -repeat in AM -remains low at 50s DVT PROPHYLAXIS: cannot anticoagulate d/t thrombocytopenia, hold off on SCDs until doppler US CODE STATUS: DNR As per patient's wish and after discussion with the Daughter DISPO: Awaited Discussed with the Daughter in detailed again today 10/18/16,10/20/16 and agian PT/OT and will need Rehab Vital Signs: Date Time Temp Pulse Resp B/P Pulse Ox O2 Delivery O2 Flow Rate FiO2 10/22/16 15:12 36.6 68 22 150/87 90 Nasal Cannula 2.0 10/22/16 11:30 92 10/22/16 11:23 36.6 74 20 167/84 92 2.0 10/22/16 09:27 Nasal Cannula 2.0 10/22/16 07:50 36.5 66 20 149/78 90 2.0 10/22/16 04:52 37.0 62 16 122/66 98 Nasal Cannula 2.0 10/22/16 02:45 92 Nasal Cannula 2.0 10/22/16 02:45 76 126/68 80 Room Air 10/22/16 00:00 Nasal Cannula 2.0 10/21/16 23:18 36.9 70 18 119/64 92 Nasal Cannula 2.0 10/21/16 20:21 37.0 74 16 128/77 91 Nasal Cannula 2.0 Lab Results: Results Past 24 Hours Test 10/21/16 20:43 3/27/17 08:23 10/22/16 11:35 Range/Units Bedside Glucose 184 145 163 70-99 mg/dl
[2016-10-23] VITALS (9 sets, daily range): BP systolic 115–162; BP diastolic 62–90; PULSE 61–73; TEMP 36.5–36.9; O2SAT 90–93
[2016-10-23] MEDS: PIPERACILL/TAZOBAC IV 3.375 GM in DEXTROSE 5% 100ML 100 ML IV SCH ×2 (02:24→09:42)
[2016-10-23] MEDS: METOPROLOL TARTRATE 25 MG TAB PO SCH ×4 (02:25→21:15)
[2016-10-23] MEDS: NITROGLYCERIN OINT 2% 1GM PACKET EXT SCH ×3 (05:50→17:52)
[2016-10-23] MEDS: INSULIN ASPART 100 UNITS/ML 3 ML PEN SC SCH ×4 (08:21→21:00)
--- NOTE | 2016-10-23 17:58 | Progress Note ---
Medicine Progress Note Date & Time of Visit: Oct 23, 2016 at 17:37. Subjective Pt was seen and examined Lying in bed comfortable with no distress with at bedside pt said that he feels much better he said that he had a large BM today Denies any fever, palpitation, SOB Objective Last 8 Hrs Date Time Temp Pulse Resp B/P Pulse Ox O2 Delivery O2 Flow Rate FiO2 10/23/16 17:18 63 157/77 10/23/16 16:45 Nasal Cannula 2.0 10/23/16 15:05 36.6 73 18 124/62 90 Nasal Cannula 2.0 10/23/16 11:54 66 118/64 Physical Exam: General- no distress Head- atraumatic Eyes- PERRL, EOMI ENT- oropharynx clear Neck- supple, no JVD Lungs- Poor air entry Heart- regular rhythm; no murmur Abdomen- normal bowel sounds, soft Extremities- no calf tenderness Neuro- alert, oriented, PERRL, EOMI Laboratory Results: Last 24 Hours Test 10/22/16 20:20 10/23/16 11:38 10/23/16 16:33 Bedside Glucose 181 mg/dl 147 mg/dl 151 mg/dl Assessment & Plan SEVERE SEPSIS WBC count on admission increase to 40K, Lactate 13, hypotension, tachycardia Possible related to UTI and Pneumonia, possible cellulitis -empirically treat with Levaquin, and Zosyn. -later on Vancomycin was added -WBC 16K (09/23/16) -Blood cultures negative -Urine culture Staph -likely contaminant -Clinically much better -Vancomycin stopped -Continue Zosyn and Levaquin day #7 -clinically much improved COMMUNITY ACQUIRED PNEUMONIA -CXR with right basilar consolidation -negative for Flu -has been on Zosyn,Levaquin #7days - Recieved Vanco for 6 days - Improved HYPOTENSION -BP as low as 60s systolically -likely secondary to sepsis versus Cardizem drip. 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 With Hypoxemia Likely secondary to sepsis,AF and recent fluid administration complicated by congestion Received lasix x2 Titrated for bipap now on 2 liter NC Atrial Fibrillation with RVR Received BB and Digoxin Rate in controlled and reverted to SR getting in and out of AF and SR Stable Swallowing difficulty Awaiting speech therapy evaluation Appreciate Recommendation URINARY TRACT INFECTION -check culture-staph aureus.Likely contaminant -empirically treat with Levaquin and Zosyn Chronic Back pain Has Lumbar osteoarthritis Will try IV Tylenol for pain-controlled PT/OT evaluation ACUTE RENAL FAILURE -crea 2, baseline <1 -likely secondary to dehydration, acute illness, and recent lasix use -IVF hydration -avoid nephrotoxic agents -Resolved ELEVATED TROPONIN NSTEMI -0.191->0.5 -ECHO:: * The study was technically limited due to poor acoustic windows. * Sinus rhythm at 85 bpm is noted. * The left ventricular cavity is small. * There is moderate concentric left ventricular hypertrophy. 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 * The remaining myocardial segments reveals normal wall motion to hyperkineisis. * The LV Ejection Fraction = >70 %. * The aortic valve is severely calcified, with decreased excursion noted on 2D imaging. * Diastolic dysfunction, Grade II (pseudonormalization pattern). -cardiology consult appreciated LEFT LOWER EXTREMITY EDEMA -Possible cellulitis, r/o DVT -doppler US -negative for any DVT THROMBOCYTOPENIA Possible related to sepsis -avoid anticoagulation -check cbc in am DVT PROPHYLAXIS: cannot anticoagulate d/t thrombocytopenia, hold off on SCDs until doppler US CODE STATUS: DNR DISPOSITION Waiting for placement to rehab Current Inpatient Medications: Current Inpatient Medications Medications (Trade) Dose Ordered Sig/Malik Route Start Time Stop Time Status Last Admin Dose Admin Acetaminophen (Tylenol Tab) 650 mg Q4H PRN PO 10/16/16 14:00 11/15/16 13:59 10/22/16 23:39 650 MG Ondansetron HCl (Zofran Inj) 4 mg Q6H PRN IV 10/16/16 14:00 11/15/16 13:59 Piperacillin Sod/ Tazobactam Sod (Consult) 1 ea UD PRN N/A 10/16/16 15:15 11/15/16 15:14 Morphine Sulfate 2 mg 2 mg Q4H PRN IV 10/16/16 14:30 10/30/16 14:29 10/21/16 05:20 2 MG Piperacillin Sod/ Tazobactam Sod/ Dextrose (Zosyn Iv/D5 100ml) 115 ml @ 28.75 mls/ hr Q8H IV 10/16/16 18:00 10/23/16 17:59 10/23/16 09:42 28.75 MLS/HR Glucose (Glucose 40% Gel) UD PRN PO 10/17/16 02:30 11/16/16 02:29 Glucose (Glucose Chew Tab) 1 tabs UD PRN PO 10/17/16 02:30 11/16/16 02:29 Dextrose (Dextrose 50% 50ML Syringe) 50 ml UD PRN IV 10/17/16 02:30 11/16/16 02:29 Glucagon (Glucagon Inj) 1 mg UD PRN SQ 10/17/16 02:30 11/16/16 02:29 Insulin Aspart (novoLOG ASPART) SLIDING SCALE G... ACHS SC 10/17/16 16:15 11/16/16 16:14 10/23/16 17:17 1 UNITS Metoprolol Tartrate 12.5 mg 12.5 mg Q6H PO 10/18/16 15:00 11/17/16 14:59 Future hold 10/23/16 15:43 12.5 MG Acetaminophen (Ofirmev Iv) 100 ml @ 400 mls/hr Q8H PRN IV 10/18/16 15:15 11/17/16 15:14 10/21/16 04:30 400 MLS/HR Polyethylene (Miralax Powder Packet) 17 gm DAILY PRN PO 10/21/16 05:45 11/20/16 05:44 10/21/16 06:13 17 GM Sodium Biphosphate/ Sodium Phosphate (Fleet Enema) [address] 10/21/16 08:00 11/20/16 07:59 10/21/16 13:13 132 ML Bisacodyl (Dulcolax Supp) [address] 10/21/16 08:00 11/20/16 07:59 10/21/16 08:00 10 MG Magnesium Hydroxide (Milk Of Magnesia Susp) 30 ml HS PRN PO 10/21/16 15:15 11/20/16 15:14 Nitroglycerin (Nitroglycerin 2% Oint) 1 inch Q6H EXT 10/22/16 12:00 11/21/16 11:29 10/23/16 11:58 1 INCH
[2016-10-24] VITALS (7 sets, daily range): BP systolic 129–171; BP diastolic 68–91; PULSE 63–76; TEMP 36.5–36.8; O2SAT 90–94
[2016-10-24] MEDS: NITROGLYCERIN OINT 2% 1GM PACKET EXT SCH ×4 (00:29→17:55)
[2016-10-24] MEDS: METOPROLOL TARTRATE 25 MG TAB PO SCH ×4 (03:30→21:36)
[2016-10-24 08:10] LABS: HEMATOCRIT 41.1 % (42-52); MEAN CELL VOLUME 89.7 fL (80-100); MEAN CORPUSCULAR HEMOGLOBIN 30.3 pg (25-34); MEAN CORPUSCULAR HGB CONC 33.8 g/dl (32-36); RED BLOOD COUNT 4.58 M/uL (4.7-6.1); WHITE BLOOD COUNT 15.76 K/uL (4.8-10.8)
[2016-10-24 08:23] LABS: MEAN PLATELET VOLUME 10.9 fL (7.4-10.4); PLATELET COUNT 88 K/uL (130-400)
[2016-10-24] MEDS: INSULIN ASPART 100 UNITS/ML 3 ML PEN SC SCH ×4 (08:36→21:41)
[2016-10-24 08:40] LABS: BUN/CREATININE RATIO 29.7 (10-20); CALCIUM 8.6 mg/dl (8.5-10.1); CREATININE 1.2 mg/dl (0.60-1.40); POTASSIUM 3.6 mmol/L (3.5-5.1)
--- NOTE | 2016-10-24 18:26 | Progress Note ---
Medicine Progress Note Date & Time of Visit: Oct 24, 2016 at 18:06. Subjective Pt was seen and examined Lying in bed with no distress with at bedside Pt said that he feels fine he said that he is only complaint is his back pain denies any chest pain, palpitation, fever, dizziness Objective Last 8 Hrs Date Time Temp Pulse Resp B/P Pulse Ox O2 Delivery O2 Flow Rate FiO2 10/24/16 17:14 73 167/91 10/24/16 15:46 36.8 73 142/78 90 Room Air 10/24/16 12:15 67 149/75 Physical Exam: General- no distress Head- atraumatic Eyes- PERRL, EOMI ENT- oropharynx clear Neck- supple, no JVD Lungs- no wheezing, no crackles Heart- regular rhythm; no murmur Abdomen- normal bowel sounds, soft Extremities- no calf tenderness Neuro- alert, oriented, PERRL, EOMI Laboratory Results: Last 24 Hours Test 10/23/16 20:17 10/24/16 07:48 10/24/16 07:50 10/24/16 11:22 Bedside Glucose 129 mg/dl 104 mg/dl 138 mg/dl White Blood Count 15.76 K/uL Red Blood Count 4.58 M/uL Hemoglobin 13.9 g/dL Hematocrit 41.1 % Mean Corpuscular Volume 89.7 fL Mean Corpuscular Hemoglobin 30.3 pg Mean Corpuscular Hemoglobin Concent 33.8 g/dl RDW Standard Deviation 53.4 fL RDW Coefficient of Variation 18.1 % Platelet Count 88 K/uL Mean Platelet Volume 10.9 fL Sodium Level 143 mmol/L Potassium Level 3.6 mmol/L Chloride Level 107 mmol/L Carbon Dioxide Level 30 mmol/L Anion Gap 6.0 mmol/L Blood Urea Nitrogen 36 mg/dl Creatinine 1.20 mg/dl Est Creatinine Clear Calc Drug Dose 42.5 ml/min Estimated GFR () 62.6 Estimated GFR (Non- 54.0 BUN/Creatinine Ratio 29.7 Random Glucose 116 mg/dl Calcium Level 8.6 mg/dl Test 10/24/16 16:27 Bedside Glucose 120 mg/dl Assessment & Plan SEVERE SEPSIS WBC count on admission increase to 40K, Lactate 13, hypotension, tachycardia Possible related to UTI and Pneumonia, possible cellulitis -empirically treat with Levaquin, and Zosyn. -later on Vancomycin was added -WBC 15K (10/24/16) -Blood cultures negative -Urine culture Staph -likely contaminant -Clinically much better -Vancomycin stopped Competed course of abx with levaquin and zosyn -Stable COMMUNITY ACQUIRED PNEUMONIA -CXR with right basilar consolidation -negative for Flu -Completed course of zosyn, levaquin - Recieved Vanco for 6 days - Improved HYPOTENSION -BP as low as 60s systolically -likely secondary to sepsis versus Cardizem drip. 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 With Hypoxemia Likely secondary to sepsis,AF and recent fluid administration complicated by congestion Received lasix x2 Titrated for bipap now on 2 liter NC Atrial Fibrillation with RVR Received BB and Digoxin Rate in controlled and reverted to SR getting in and out of AF and SR Stable Swallowing difficulty Awaiting speech therapy evaluation Appreciate Recommendation URINARY TRACT INFECTION -check culture-staph aureus.Likely contaminant -empirically treat with Levaquin and Zosyn Chronic Back pain Has Lumbar osteoarthritis Will try IV Tylenol for pain-controlled PT/OT evaluation ACUTE RENAL FAILURE -crea 2, baseline <1 -likely secondary to dehydration, acute illness, and recent lasix use -IVF hydration -avoid nephrotoxic agents -Resolved ELEVATED TROPONIN NSTEMI -0.191->0.5 -ECHO:: * The study was technically limited due to poor acoustic windows. * Sinus rhythm at 85 bpm is noted. * The left ventricular cavity is small. * There is moderate concentric left ventricular hypertrophy. 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 * The remaining myocardial segments reveals normal wall motion to hyperkineisis. * The LV Ejection Fraction = >70 %. * The aortic valve is severely calcified, with decreased excursion noted on 2D imaging. * Diastolic dysfunction, Grade II (pseudonormalization pattern). -cardiology consult appreciated LEFT LOWER EXTREMITY EDEMA -Possible cellulitis, r/o DVT -doppler US -negative for any DVT THROMBOCYTOPENIA Possible related to sepsis -avoid anticoagulation -platelet 88 DVT PROPHYLAXIS: cannot anticoagulate d/t thrombocytopenia, On SCDs CODE STATUS: DNR DISPOSITION Waiting for placement to rehab Current Inpatient Medications: Current Inpatient Medications Medications (Trade) Dose Ordered Sig/Malik Route Start Time Stop Time Status Last Admin Dose Admin Acetaminophen (Tylenol Tab) 650 mg Q4H PRN PO 10/16/16 14:00 11/15/16 13:59 10/22/16 23:39 650 MG Ondansetron HCl (Zofran Inj) 4 mg Q6H PRN IV 10/16/16 14:00 11/15/16 13:59 Piperacillin Sod/ Tazobactam Sod (Consult) 1 ea UD PRN N/A 10/16/16 15:15 11/15/16 15:14 Morphine Sulfate (MoRPHine SULFATE INJ) 2 mg Q4H PRN IV 10/16/16 14:30 10/30/16 14:29 10/21/16 05:20 2 MG Glucose (Glucose 40% Gel) UD PRN PO 10/17/16 02:30 11/16/16 02:29 Glucose (Glucose Chew Tab) 1 tabs UD PRN PO 10/17/16 02:30 11/16/16 02:29 Dextrose (Dextrose 50% 50ML Syringe) 50 ml UD PRN IV 10/17/16 02:30 11/16/16 02:29 Glucagon (Glucagon Inj) 1 mg UD PRN SQ 10/17/16 02:30 11/16/16 02:29 Insulin Aspart (novoLOG ASPART) SLIDING SCALE G... ACHS SC 10/17/16 16:15 11/16/16 16:14 10/24/16 12:22 1 UNITS Metoprolol Tartrate 12.5 mg 12.5 mg Q6H PO 10/18/16 15:00 11/17/16 14:59 Future hold 10/24/16 17:14 12.5 MG Acetaminophen (Ofirmev Iv) 100 ml @ 400 mls/hr Q8H PRN IV 10/18/16 15:15 11/17/16 15:14 10/21/16 04:30 400 MLS/HR Polyethylene (Miralax Powder Packet) 17 gm DAILY PRN PO 10/21/16 05:45 11/20/16 05:44 10/21/16 06:13 17 GM Sodium Biphosphate/ Sodium Phosphate (Fleet Enema) 132 ml DAILY PRN [place] 10/21/16 08:00 11/20/16 07:59 10/21/16 13:13 132 ML Bisacodyl (Dulcolax Supp) 10 mg DAILY PRN [place] 10/21/16 08:00 11/20/16 07:59 10/21/16 08:00 10 MG Magnesium Hydroxide (Milk Of Magnesia Susp) 30 ml HS PRN PO 10/21/16 15:15 11/20/16 15:14 Nitroglycerin (Nitroglycerin 2% Oint) 1 inch Q6H EXT 10/22/16 12:00 11/21/16 11:29 10/24/16 17:55 1 INCH
[2016-10-24] MEDS: ACETAMINOPHEN 325 MG TAB PO PRN (20:16)
[2016-10-25] MEDS: NITROGLYCERIN OINT 2% 1GM PACKET EXT SCH ×4 (00:13→17:27)
[2016-10-25 00:28] VITALS: BP 130/80; PULSE 58; TEMP 36.9; O2SAT 92
[2016-10-25] MEDS: METOPROLOL TARTRATE 25 MG TAB PO SCH ×3 (03:50→16:04)
[2016-10-25 08:47] LABS: MEAN CORPUSCULAR HEMOGLOBIN 30.2 pg (25-34); MEAN CORPUSCULAR HGB CONC 33.9 g/dl (32-36); RED BLOOD COUNT 4.27 M/uL (4.7-6.1)
[2016-10-25 09:10] VITALS: BP 134/76; PULSE 66
[2016-10-25] MEDS: INSULIN ASPART 100 UNITS/ML 3 ML PEN SC SCH ×4 (09:12→17:27)
[2016-10-25 10:27] LABS: MEAN PLATELET VOLUME 11.3 fL (7.4-10.4); PLATELET COUNT 97 K/uL (130-400)
--- NOTE | 2016-10-25 15:21 | Progress Note ---
Medicine Progress Note Date & Time of Visit: Oct 25, 2016 at 15:10. Subjective Pt was seen and examined Lying in bed with no distress with at bedside he said that he feels ok denies any chest pain, fever, palpitation, dizziness and SOB Objective Last 8 Hrs Date Time Temp Pulse Resp B/P Pulse Ox O2 Delivery O2 Flow Rate FiO2 10/25/16 09:10 66 134/76 10/25/16 09:10 Nasal Cannula 2.0 Physical Exam: General- no distress Head- atraumatic Eyes- PERRL, EOMI ENT- oropharynx clear Neck- supple, no JVD Lungs- no wheezing, no crackles Heart- regular rhythm; no murmur Abdomen- normal bowel sounds, soft Extremities- no calf tenderness Neuro- alert, oriented, PERRL, EOMI Laboratory Results: Last 24 Hours Test 10/24/16 16:27 10/24/16 19:41 10/25/16 07:26 10/25/16 07:29 Bedside Glucose 120 mg/dl 215 mg/dl 109 mg/dl White Blood Count 13.20 K/uL Red Blood Count 4.27 M/uL Hemoglobin 12.9 g/dL Hematocrit 38.0 % Mean Corpuscular Volume 89.0 fL Mean Corpuscular Hemoglobin 30.2 pg Mean Corpuscular Hemoglobin Concent 33.9 g/dl RDW Standard Deviation 52.4 fL RDW Coefficient of Variation 18.6 % Platelet Count 97 K/uL Mean Platelet Volume 11.3 fL Test 10/25/16 11:35 Bedside Glucose 130 mg/dl Assessment & Plan SEVERE SEPSIS WBC count on admission increase to 40K, Lactate 13, hypotension, tachycardia Possible related to UTI and Pneumonia, possible cellulitis -empirically treat with Levaquin, and Zosyn. -later on Vancomycin was added -WBC 13K (10/25/16) -Blood cultures negative -Urine culture Staph -likely contaminant -Clinically much better -Vancomycin stopped Competed course of abx with levaquin and zosyn COMMUNITY ACQUIRED PNEUMONIA -CXR with right basilar consolidation -negative for Flu -Completed course of zosyn, levaquin - Recieved Vanco for 6 days - Improved HYPOTENSION -BP as low as 60s systolically -likely secondary to sepsis versus Cardizem drip. BP was stable on arrival -Resolved HTN On Lopressor q6hr PO, can titrate base on HR and BP On Nitro ointment since creatine back to baseline consider to start lisinopril 5 mg as an outpatient with monitoring BMP Nitro can be d/c once lisinopril starts Acute on Chronic Diastolic Heart Failure With Hypoxemia Likely secondary to sepsis,AF and recent fluid administration complicated by congestion Received lasix x2 Titrated for bipap now on 2 liter NC stable Atrial Fibrillation with RVR Received BB and Digoxin Rate in controlled and reverted to SR getting in and out of AF and SR Stable Swallowing difficulty Awaiting speech therapy evaluation Appreciate Recommendation URINARY TRACT INFECTION -check culture-staph aureus.Likely contaminant -empirically treat with Levaquin and Zosyn Chronic Back pain Has Lumbar osteoarthritis Will try IV Tylenol for pain-controlled PT/OT evaluation will do a peer to peer review for rehab approval ACUTE RENAL FAILURE -crea 2, baseline <1 -likely secondary to dehydration, acute illness, and recent lasix use -IVF hydration -avoid nephrotoxic agents -Resolved ELEVATED TROPONIN NSTEMI -0.191->0.5 -ECHO:: * The study was technically limited due to poor acoustic windows. * Sinus rhythm at 85 bpm is noted. * The left ventricular cavity is small. * There is moderate concentric left ventricular hypertrophy. 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 * The remaining myocardial segments reveals normal wall motion to hyperkineisis. * The LV Ejection Fraction = >70 %. * The aortic valve is severely calcified, with decreased excursion noted on 2D imaging. * Diastolic dysfunction, Grade II (pseudonormalization pattern). -cardiology consult appreciated \ - Continue medical management - on lopressor 12.5 mg q6h PO, can be titrate up or down base on BP and HR - -No ASA was given due to Low platelet LEFT LOWER EXTREMITY EDEMA -Possible cellulitis, r/o DVT -doppler US -negative for any DVT THROMBOCYTOPENIA Possible related to sepsis -avoid anticoagulation -platelet 97 today DVT PROPHYLAXIS: cannot anticoagulate d/t thrombocytopenia, On SCDs CODE STATUS: DNR DISPOSITION Waiting for placement to rehab Will do peer to peer review for rehab approval Consultants: cardio Current Inpatient Medications: Current Inpatient Medications Medications (Trade) Dose Ordered Sig/Malik Route Start Time Stop Time Status Last Admin Dose Admin Acetaminophen (Tylenol Tab) 650 mg Q4H PRN PO 10/16/16 14:00 11/15/16 13:59 10/24/16 20:16 650 MG Ondansetron HCl (Zofran Inj) 4 mg Q6H PRN IV 10/16/16 14:00 11/15/16 13:59 Piperacillin Sod/ Tazobactam Sod (Consult) 1 ea UD PRN N/A 10/16/16 15:15 11/15/16 15:14 Morphine Sulfate (MoRPHine SULFATE INJ) 2 mg Q4H PRN IV 10/16/16 14:30 10/30/16 14:29 10/21/16 05:20 2 MG Glucose (Glucose 40% Gel) UD PRN PO 10/17/16 02:30 11/16/16 02:29 Glucose (Glucose Chew Tab) 1 tabs UD PRN PO 10/17/16 02:30 11/16/16 02:29 Dextrose (Dextrose 50% 50ML Syringe) 50 ml UD PRN IV 10/17/16 02:30 11/16/16 02:29 Glucagon (Glucagon Inj) 1 mg UD PRN SQ 10/17/16 02:30 11/16/16 02:29 Insulin Aspart (novoLOG ASPART) SLIDING SCALE G... ACHS SC 10/17/16 16:15 11/16/16 16:14 10/25/16 13:29 1 UNITS Metoprolol Tartrate 12.5 mg 12.5 mg Q6H PO 10/18/16 15:00 11/17/16 14:59 Future hold 10/25/16 09:10 12.5 MG Acetaminophen (Ofirmev Iv) 100 ml @ 400 mls/hr Q8H PRN IV 10/18/16 15:15 11/17/16 15:14 10/21/16 04:30 400 MLS/HR Polyethylene (Miralax Powder Packet) 17 gm DAILY PRN PO 10/21/16 05:45 11/20/16 05:44 10/21/16 06:13 17 GM Sodium Biphosphate/ Sodium Phosphate (Fleet Enema) 132 ml DAILY PRN [place] 10/21/16 08:00 11/20/16 07:59 10/21/16 13:13 132 ML Bisacodyl (Dulcolax Supp) 10 mg DAILY PRN [place] 10/21/16 08:00 11/20/16 07:59 10/21/16 08:00 10 MG Magnesium Hydroxide (Milk Of Magnesia Susp) 30 ml HS PRN PO 10/21/16 15:15 11/20/16 15:14 Nitroglycerin (Nitroglycerin 2% Oint) 1 inch Q6H EXT 10/22/16 12:00 11/21/16 11:29 10/25/16 12:37 1 INCH
[2016-10-25 16:06] VITALS: BP 155/72; PULSE 65
[2016-10-25] MEDS ORDERED: NTRO1 EXT (16:42)
[2016-10-25] MEDS ORDERED: DLCS PR (16:42)
[2016-10-25] MEDS ORDERED: TRAM-10 PO ×2 (16:42→17:10)
[2016-10-25] MEDS ORDERED: LPR25 PO (16:42)
[2016-10-25] MEDS ORDERED: TYL325X PO (16:52)
--- NOTE | 2016-10-25 17:00 | Discharge Instructions ---
Discharge Instructions Date of Service Oct 25, 2016. Admission Reason for Admission: Sepsis Discharge Discharge Diagnosis / Problem: Acute renal failure, Pneumonia, UTI, Elevated troponin, AFib with RVR Discharge Goals Goal(s): Decrease discomfort, Improve function, Improve disease control Activity Recommendations Activity Limitations: resume your previous activity (as tolerated) . Instructions / Follow-Up Instructions / Follow-Up Discharge to [facility] Continue PT/OT eval Fall precaution Follow up with your primary care physician once discharge to rehab Monitor BP and titrate medications Monitor BMP when started diuretics and ACEI due to JAVAD Monitor BS Current Hospital Diet Patient's current hospital diet: AHA Diet (Heart Healthy) Discharge Diet Recommended Diet: AHA Diet (Heart Healthy), Low Sodium Diet (2gm Na) Pending Studies Studies pending at discharge: no Laboratory Results Hemoglobin A1c Test 10/17/16 05:36 Range/Units Estimated Average Glucose 123 mg/dl Hemoglobin A1c 5.9 H 4.5-5.6 % Lipid Panel Test 10/17/16 05:36 Range/Units Triglycerides Level 157 H 0-150 mg/dl Cholesterol Level 69 0-200 mg/dl HDL Cholesterol 8 mg/dl Cholesterol/HDL Ratio 8.6 LDL Cholesterol, Calculated 30 mg/dl Medical Emergencies . Who to Call and When: Medical Emergencies: If at any time you feel your situation is an emergency, please call 911 immediately. . Non-Emergent Contact Non-Emergency issues call your: Primary Care Provider Call Non-Emergent contact if: you have a fever, your pain is not controlled, you have any medication questions . . "Provider Documentation" section prepared by Samantha Hernandez. VTE Core Measure Inpt VTE Proph given/why not?: SCD's
[2016-10-25 17:06] VITALS: BP 155/72; PULSE 65; TEMP 36.9; O2SAT 92
--- NOTE | 2016-10-25 17:08 | Discharge Summary ---
Discharge Summary Date of Service Oct 25, 2016. Discharge Summary Admission Date: Oct 16, 2016 at 13:54 Discharge Disposition: Rehab Principal Diagnosis: Severe Sepsis Secondary Diagnoses/Problems: Acute kidney injury Pneumonia UTI NSTEMI Atrial Fibrillation with RVR Acute on chronic diastolic heart failure Thrombocytopenia chronic Back pain Procedures: Interpretation Summary * Name: SHARAD LEE Study Date: 10/17/2016 06:46 AM BP: 102/53 mmHg * Patient Location: 2E\\S\\E201\\S\\1 HR: 92 * : 1930 (M/d/yyyy) Gender: Male Height: 66 in * Age: 86 yrs Ethnicity: [place] Weight: 145 lb * Ordering Physician: Areli Browne * Referring Physician: Juan Knutson * Performed By: Ofelai Maier RDCS * * Reason For Study: Chest pain * BSA: 1.7 m2 * The study was technically limited. * -- Conclusions -- * The study was technically limited due to poor acoustic windows. * Sinus rhythm at 85 bpm is noted. * The left ventricular cavity is small. * There is moderate concentric left ventricular hypertrophy. 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 * The remaining myocardial segments reveals normal wall motion to hyperkineisis. * The LV Ejection Fraction = >70 %. * The aortic valve is severely calcified, with decreased excursion noted on 2D imaging. * Diastolic dysfunction, Grade II (pseudonormalization pattern). Procedure Details * A complete two-dimensional transthoracic echocardiogram was performed (2D, M- mode, Doppler and color flow Doppler). * A contrast injection of Definity was performed to improve assessment of LV function. * Contrast was injected into an intravenous site in the right arm. * One vial of Definity ultrasound contrast was diluted in normal saline to a total volume of 10 ml. A total of '2' ml of solution was administered during imaging. * Lot # [id number] of Definity utilized for procedure. * Expiration date NOV 13. * The attending nurse who injected the contrast agent was Sabra Hernandez RN. Left Ventricle * The left ventricular cavity is small. * The left ventricular apex is akinetic, and contrast images suggest apical pseudoaneurysm. The remaining myocardial segments reveals normal wall motion to hyperkineisis. * There is moderate concentric left ventricular hypertrophy. * Ejection Fraction = >70 %. Right Ventricle * The right ventricualar chamber size and systolic function are grossly normal in limited visualization. Atria * The left atrial size is normal. * Right atrial size is normal. * There is no evidence of atrial septal defect, but resolution does not allow assessment for a patent foramen ovale. Mitral Valve * There is mild mitral annular calcification. * There is no mitral valve stenosis. * Significant mitral regurgitation is absent. Tricuspid Valve * The tricuspid valve is normal. * There is no tricuspid stenosis. * Significant tricuspid regurgitation is absent. Aortic Valve * The aortic valve is severely calcified, with decreased excursion noted on 2D imaging. * The Doppler evaluation of aortic stenosis is technically limited. Based on 2D images moderate or severe aortic stenosis is suspected. * There is no significant aortic regurgitation. Pulmonic Valve * The pulmonary valve is not well seen, but the Doppler examination is normal without significant regurgitation or stenosis. Great Vessels * The aortic root and proximal ascending aorta are normal sized. Pericardium/Pleural * There is no pericardial effusion. Great Vessels * Normal inferior vena cava diameter and respiratory variation suggests normal central venous pressure. Left Ventricular Diastolic Function * Diastolic dysfunction, Grade II (pseudonormalization pattern). ABDOMEN AND PELVIS CT WITHOUT CONTRAST CT DOSE: 864.07 mGycm HISTORY: Pain Pt c/o low back pain TECHNIQUE: Multiaxial CT images of the abdomen and pelvis were performed without contrast. COMPARISON STUDY: None. FINDINGS: Mild bibasilar parenchymal infiltrative/atelectatic changes. Configuration of liver is unremarkable. Several tiny gallstones may be present. Kidneys negative for hydronephrosis. Spleen is unremarkable. The adrenal glands are within normal limits. Bowel pattern overall is nonobstructive. Haas catheter is present within the bladder. The inguinal Regions are unremarkable. IMPRESSION: 1. Bibasilar infiltrative and/or atelectatic changes. 2. Possible tiny gallstones. 3. Nonobstructive bowel pattern. 4. No acute processes the abdomen or pelvis 5. Significant degenerative change of the lumbar spine at the L2-L3 and L4 levels Electronically signed by: Chinedu Liu M.D. 10/16/2016 1:14 PM Dictated Date/Time: 10/16/2016 1:03 PM [~ rep ct add3]] BILATERAL LOWER EXTREMITY VENOUS DOPPLER HISTORY: Lower extremity edema, erythema, r/o dvt COMPARISON STUDY: None. FINDINGS: There is normal compressibility, flow, and augmentation within the visualized bilateral lower extremity deep venous systems. The anterior and posterior tibial veins were suboptimally visualized but likely patent. The bilateral peroneal veins were not clearly identified. IMPRESSION: No DVT within the visualized right or left lower extremity. Electronically signed by: Steve Stern M.D. 10/16/2016 9:05 PM Consultations: cardio Medication Reconciliation New Medications: Tramadol (Ultram) 50 Mg Tab 50 MG PO Q12 PRN for Pain for 5 Days, #10 TAB For moderate to severe pain Acetaminophen (Tylenol) 325 Mg Tab 650 MG PO Q6H PRN for Pain or Fever for 5 Days, #40 TAB Bisacodyl (Bisac-Evac) 10 Mg Supp 10 MG ID DAILY PRN for CONSTIPATION for 30 Days, SUPP Metoprolol Tartrate (Lopressor) 25 Mg Tab 12.5 MG PO Q6H for 30 Days, #60 TAB Nitroglycerin (Nitro-Bid) 1 Inch/Pkt Oint 1 INCH EXT Q6H for 7 Days Admission Information HPI (per Admitting provider): Patient seen and examined. 86 year old male with no significant PMHx presents to the ED complaining of generalized weakness since last night. Patient speaks Czech. Translating service was offered to the patient but he declined and requested that his daughter translate for him. Patient was feeling close to baseline until last evening when he started to feel SOB and generally weak. He reports taking his BP at home and that it was lower than normal. He has associated chest congestion and dysuria. He denies fevers, cough, chest pain, palpitations, nausea, vomiting, diarrhea, calf pain. Patient has peripheral edema worse in the left leg for several months with overlying erythema. He has taken Lasix for this but only a few doses because of side effect. He denies any PMHx of heart disease, and does not take any medications. He follows with a PCP regularly. In the ED VS were initially stable, WBC count was elevated, he is thrombocytopenic, crea is elevated, and there is a slight bump in troponin. UA shows infection, and CXR showed possible pneumonia. He received a duoneb treatment and apparently developed afib with RVR. Duoneb was stopped and patient was placed on Cardizem drip. His BP has subsequently dropped. He will be admitted for further workup and treatment. Physical Exam (per Admitting): General Appearance: + pertinent finding (WD/WN 86 year old male lying inbed in NAD with family at bedside ) Head: normocephalic, atraumatic Eyes: PERRL, EOMI, sclerae normal ENT: hearing grossly normal, pharynx normal Neck: supple, no JVD Respiratory/Chest: chest non-tender, lungs clear, normal breath sounds, no respiratory distress, no accessory muscle use Cardiovascular: no gallop, no JVD, no murmur, normal peripheral pulses, + tachycardia (120s) Abdomen/GI: normal bowel sounds, non tender, soft Genitourinary - Male: + pertinent finding (haas with dark yellow urine ) Extremities/Musculoskelatal: no calf tenderness, normal capillary refill, + pedal edema (+2 pedal edema L>R), + pertinent finding (overlying erythema to LLE , drainage ) Neurologic/Psych: alert, oriented x 3 Skin: normal color, warm/dry Lymphatic: no adenopathy Hospital Course SEVERE SEPSIS WBC count on admission increase to 40K, Lactate 13, hypotension, tachycardia Possible related to UTI and Pneumonia, possible cellulitis -empirically treat with Levaquin, and Zosyn. -later on Vancomycin was added -WBC 13K (10/25/16) -Blood cultures negative -Urine culture Staph -likely contaminant -Clinically much better -Vancomycin stopped Competed course of abx with levaquin and zosyn COMMUNITY ACQUIRED PNEUMONIA -CXR with right basilar consolidation -negative for Flu -Completed course of zosyn, levaquin - Recieved Vanco for 6 days - Improved HYPOTENSION -BP as low as 60s systolically -likely secondary to sepsis versus Cardizem drip. BP was stable on arrival -Resolved HTN On Lopressor q6hr PO, can titrate base on HR and BP On Nitro ointment since creatine back to baseline consider to start lisinopril 5 mg as an outpatient with monitoring BMP Nitro can be d/c once lisinopril starts Acute on Chronic Diastolic Heart Failure With Hypoxemia Likely secondary to sepsis,AF and recent fluid administration complicated by congestion Received lasix x2 Titrated for bipap now on 2 liter NC stable Atrial Fibrillation with RVR Received BB and Digoxin Rate in controlled and reverted to SR getting in and out of AF and SR Stable Swallowing difficulty Awaiting speech therapy evaluation Appreciate Recommendation URINARY TRACT INFECTION -check culture-staph aureus.Likely contaminant -empirically treat with Levaquin and Zosyn Chronic Back pain Has Lumbar osteoarthritis Will try IV Tylenol for pain-controlled PT/OT evaluation will do a peer to peer review for rehab approval ACUTE RENAL FAILURE -crea 2, baseline <1 -likely secondary to dehydration, acute illness, and recent lasix use -IVF hydration -avoid nephrotoxic agents -Resolved ELEVATED TROPONIN NSTEMI -0.191->0.5 -ECHO:: * The study was technically limited due to poor acoustic windows. * Sinus rhythm at 85 bpm is noted. * The left ventricular cavity is small. * There is moderate concentric left ventricular hypertrophy. 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 * The remaining myocardial segments reveals normal wall motion to hyperkineisis. * The LV Ejection Fraction = >70 %. * The aortic valve is severely calcified, with decreased excursion noted on 2D imaging. * Diastolic dysfunction, Grade II (pseudonormalization pattern). -cardiology consult appreciated \\ - Continue medical management - on lopressor 12.5 mg q6h PO, can be titrate up or down base on BP and HR - -No ASA was given due to Low platelet LEFT LOWER EXTREMITY EDEMA -Possible cellulitis, r/o DVT -doppler US -negative for any DVT THROMBOCYTOPENIA Possible related to sepsis -avoid anticoagulation -platelet 97 today DVT PROPHYLAXIS: cannot anticoagulate d/t thrombocytopenia, On SCDs CODE STATUS: DNR DISPOSITION Waiting for placement to rehab Will do peer to peer review for rehab approval Total time spent on discharge = 40 minutes This includes examination of the patient, discharge planning, medication reconciliation, and communication with other providers. Discharge Instructions Discharge Instructions Date of Service Oct 25, 2016. Admission Reason for Admission: Sepsis Discharge Discharge Diagnosis / Problem: Acute renal failure, Pneumonia, UTI, Elevated troponin, AFib with RVR Discharge Goals Goal(s): Decrease discomfort, Improve function, Improve disease control Activity Recommendations Activity Limitations: resume your previous activity (as tolerated) . Instructions / Follow-Up Instructions / Follow-Up Discharge to [facility] Continue PT/OT eval Fall precaution Follow up with your primary care physician once discharge to rehab Monitor BP and titrate medications Monitor BMP when started diuretics and ACEI due to JAVAD Monitor BS Current Hospital Diet Patient's current hospital diet: AHA Diet (Heart Healthy) Discharge Diet Recommended Diet: AHA Diet (Heart Healthy), Low Sodium Diet (2gm Na) Pending Studies Studies pending at discharge: no Laboratory Results Hemoglobin A1c Test 10/17/16 05:36 Range/Units Estimated Average Glucose 123 mg/dl Hemoglobin A1c 5.9 H 4.5-5.6 % Lipid Panel Test 10/17/16 05:36 Range/Units Triglycerides Level 157 H 0-150 mg/dl Cholesterol Level 69 0-200 mg/dl HDL Cholesterol 8 mg/dl Cholesterol/HDL Ratio 8.6 LDL Cholesterol, Calculated 30 mg/dl Medical Emergencies . Who to Call and When: Medical Emergencies: If at any time you feel your situation is an emergency, please call 911 immediately. . Non-Emergent Contact Non-Emergency issues call your: Primary Care Provider Call Non-Emergent contact if: you have a fever, your pain is not controlled, you have any medication questions . . "Provider Documentation" section prepared by Samantha Hernandez. VTE Core Measure Inpt VTE Proph given/why not?: SCD's [facility]
[2016-10-25 17:20] VITALS: BP 166/81
[2016-10-25 17:36] VITALS: PULSE 66; TEMP 36.3; O2SAT 94
[2016-11-29] MEDS ORDERED: HYDR-5688 PO (11:48)
[2016-11-29] MEDS ORDERED: ULT50X PO (11:48)
[2016-11-29] MEDS ORDERED: LCTX PO (11:48)
[2016-11-29] MEDS ORDERED: CLIN300C2 PO (11:48)
[2016-12-31] MEDS ORDERED: MRLP17X PO (13:08)
[2016-12-31] MEDS ORDERED: ASPEC81 PO (13:08)
[2016-12-31] MEDS ORDERED: SENN8.6T7 PO (13:08)
[2016-12-31] MEDS ORDERED: METO50TA17 PO (13:08)
[2017-01-01] MEDS ORDERED: FURO-85 PO (10:24)
[2017-01-01] MEDS ORDERED: POTA8CAP6 PO (10:24)
[2017-01-01] MEDS ORDERED: HYDR-5688 PO (10:39)
[2017-01-27] MEDS ORDERED: ACET-1256 PO (15:43)
[2017-01-27] MEDS ORDERED: NTRGSL/4 UT (15:43)
[2017-01-27] MEDS ORDERED: TAMS0.4C38 PO (15:46)
[2017-01-27] MEDS ORDERED: DUTA0.5C PO (15:46)
[2017-04-15] MEDS ORDERED: VANC5CAP PO (12:53)
[2017-04-15] MEDS ORDERED: LCTX PO (12:53)
[2017-04-15] MEDS ORDERED: CIPR-255 PO (12:53)
== END 2016-10-25 17:50 | DRG 871 ==
LOC: ENRESERVTM → ENRESERVDT → EDBD 08:53 → C.EDB 08:54 → C.2E 13:54 → EDBEDREQ 14:03 → CANBEDREQ 10-21 12:19 → C.MED 10-21 20:00 → C.MS2W 10-22 14:20
PROVIDERS: ADMIT Internal Medicine; ATTEND Internal Medicine
DX: A41.9 Sepsis, unspecified organism (principal); J18.9 Pneumonia, unspecified organism; I21.4 Non-ST elevation (NSTEMI) myocardial infarction; I50.33 Acute on chronic diastolic (congestive) heart failure; N39.0 Urinary tract infection, site not specified; E87.2 Acidosis; N17.9 Acute kidney failure, unspecified; L03.116 Cellulitis of left lower limb; I13.0 Hypertensive heart and chronic kidney disease with heart failure and stage 1 through stage 4 chronic kidney disease, or unspecified chronic kidney disease; D69.6 Thrombocytopenia, unspecified; Z87.11 Personal history of peptic ulcer disease; N40.0 Benign prostatic hyperplasia without lower urinary tract symptoms; Z87.19 Personal history of other diseases of the digestive system; M19.90 Unspecified osteoarthritis, unspecified site; I48.0 Paroxysmal atrial fibrillation; R65.20 Severe sepsis without septic shock; N18.9 Chronic kidney disease, unspecified; K59.00 Constipation, unspecified; R09.02 Hypoxemia; G89.29 Other chronic pain; Z66 Do not resuscitate

== ENCOUNTER → 2016-11-13 | Outpatient (CLI) | payer OTHER ==
[~2016-11-13] MED LIST changes: +ACET-1256 PO; +ASPEC81 PO; +ASPI81TA28 PO; +CEPH500C2 PO; +CIPR-255 PO; +CLIN300C2 PO; +CMD/25 PO; +DLCS PR; +DOCU-94 PO; +DUTA0.5C PO; +FURO-85 PO; +HYDR-5688 PO; +KFL/250 PO; +LCTX PO; +LPR25 PO; +METO25TA56 PO; +METO50TA16 PO; +METO50TA17 PO; +MRLP17X PO; +NF656 TOP; +NTRGSL/4 UT; +NTRO1 EXT; +OXYC-643 PO; +PHEN-876 PO; +POLY1POW2 PO; +POTA1CAP PO; +POTA8CAP6 PO; -PROSTATE MED; +SENN-104 PO; +SENN-65 PO; +SENN8.6T7 PO; +SULF800T23 PO; +TAMS0.4C38 PO; +TYL325X PO; +ULT50X PO; +VANC5CAP PO
== END | disposition home or self-care (01) ==
LOC: C.PATHSPEC 17:51
PROVIDERS: ATTEND Nurse Practitioner Adult Health
DX: R33.9 Retention of urine, unspecified (principal); R31.0 Gross hematuria

== ENCOUNTER 2016-11-26 13:52 | Inpatient (IN) | payer OTHER ==
[~2016-11-26] VITALS: Ht 167.6 cm; Wt 66.5 kg
[~2016-11-26 13:52] MED LIST changes: -ACET-1256 PO; -ASPEC81 PO; -ASPI81TA28 PO; -CEPH500C2 PO; -CIPR-255 PO; -CLIN300C2 PO; -CMD/25 PO; -DOCU-94 PO; -DUTA0.5C PO; -FURO-85 PO; -HYDR-5688 PO; -KFL/250 PO; -LCTX PO; -METO25TA56 PO; -METO50TA16 PO; -METO50TA17 PO; -MRLP17X PO; -NF656 TOP; -NTRGSL/4 UT; -OXYC-643 PO; -PHEN-876 PO; -POLY1POW2 PO; -POTA1CAP PO; -POTA8CAP6 PO; -SENN-104 PO; -SENN-65 PO; -SENN8.6T7 PO; -SULF800T23 PO; -TAMS0.4C38 PO; -ULT50X PO; -VANC5CAP PO
--- NOTE | 2016-11-26 14:50 | EMERGENCY ROOM VISIT NOTE ---
History Report prepared by Chloe: Eligio Huertas Under the Supervision of: Dr. Camille Andrade D.O. First contact with patient: 14:19 Chief Complaint: ABDOMINAL PAIN Stated Complaint: ABD PAIN/LETHARGIC Nursing Triage Summary: Pt speaks Cameroonian. Daughter to be en-route to the hospital. Pt arrives via ALS, from his own home, c/o abd pain and being lethargic per caregiver. Pt has an indwelling Noyola catheter and it was reported that he had blood in his Noyola. Has the appearance of the pt possibly taking pyridium. Pt not grimacing, not guarding. History of Present Illness The patient is an 86 year old male who presents to the Emergency Room with complaints of persistent abdominal pain that has worsened over the last several days. He currently rates his discomfort as a 5/10 in severity. Per the patient 's daughter, the patient appeared to be increasingly weak today when his home nurse came to evaluate him. She notes that the patient has complained of persistent abdominal pain, hematuria, and weakness. The patient's daughter notes that the patient is on medications for his enlarged prostate, but denies him having any other medical problems. Per records, the patient noted that his pain has worsened with eating. Per the patient's daughter, the patient recently finished antibiotics for a recent infection. She notes that the patient was evaluated at [facility] and was discharged 1 week ago. He had been taking Bactrim since that time until 2 days ago. The patient's daughter notes that the patient has chronic back pain, but states that his abdominal pain is new. She notes that the patient has had a decrease in appetite. The patient's daughter notes that the patient lives at home with his . 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 She was unable to elaborate on this anymore. Source of History: patient Onset: last several days Position: abdomen Symptom Intensity: 5/10 Timing: worsening, other (persistent ) Modifying Factors (Worsening): eating Associated Symptoms: + urinary symptoms (hematuria), + weakness Note: Associated Symptoms: decrease in appetite Review of Systems See HPI for pertinent positives & negatives. A total of 10 systems reviewed and were otherwise negative. Past Medical & Surgical Medical Problems: (1) BPH (benign prostatic hyperplasia) (2) Chronic back pain (3) Diastolic CHF (4) PAF (paroxysmal atrial fibrillation) (5) Urinary retention Surgical Problems: (1) No pertinent past surgical history Family History Patient reports no known family medical history. Social History Smoking Status: Never Smoker Marital Status: Housing Status: lives with family Occupation Status: retired Current/Historical Medications Scheduled Dutasteride (Avodart), 0.5 MG PO DAILY Metoprolol Tartrate (Lopressor) (Lopressor), 25 MG PO BID Nitroglycerin (Nitrostat), 0.4 MG UT PRN Tamsulosin Hcl (Flomax), 0.4 MG PO DAILY Warfarin Sod (Coumadin), 2.5 MG PO ON HOLD Scheduled PRN Acetaminophen (Tylenol), 500 MG PO Q4 PRN for Pain or Fever Docusate Sodium (Colace), 1 CAP PO BID PRN for Constipation Phenazopyridine HCl (Pyridium), 200 MG PO TID PRN for Bladder pain Sennosides-Docusate Sodium (Senna-S), 1 TAB PO DAILY PRN for Constipation Allergies Coded Allergies: No Known Allergies (Verified , 10/16/16) Physical Exam Vital Signs Date Time Temp Pulse Resp B/P Pulse Ox O2 Delivery O2 Flow Rate FiO2 11/26/16 17:28 81 22 128/65 94 Room Air 11/26/16 17:28 94 Room Air 11/26/16 16:14 75 18 112/66 94 Room Air 11/26/16 15:20 77 11/26/16 13:59 36.8 79 18 131/73 93 Room Air Physical Exam Genarl: Appears lethargic, translation through daughter. HEENT: Head - normocephalic and atraumatic Pupils are equal, round, and reactive to light. Extraocular eye muscles are intact, and sclera are anicteric. Nose - moist nasal mucosa without discharge. Mouth - dry buccal mucosa. Oropharynx is nonerythematous and there is no tonsillar exudate or edema noted. Neck: Supple; no JVD, nuchal rigidity, cervical lymphadenopathy. Heart: Regular rate and rhythm. There is a normal S1 and S2 with no murmurs, clicks, or gallops appreciated. Lungs: Clear to auscultation bilaterally with no wheezes, rales, or rhonchi. Abdomen: Soft, completely nontender, nondistended, with good bowel sounds. There are no palpable pulsatile masses or hepatosplenomegaly. There is no guarding, rigidity, or rebound noted. Extremities: No evidence of cyanosis, clubbing, or edema. There are easily palpable peripheral pulses. Skin: Dry skin with poor turgor. warm and no rashes. Medical Decision & Procedures ER Provider Diagnostic Interpretation: Radiology results as stated below per my review and the radiologist's interpretation: CT SCAN OF THE ABDOMEN AND PELVIS WITH IV CONTRAST CLINICAL HISTORY: Generalized abdominal pain. COMPARISON STUDY: Abdominal CT dated 10/16/2016. TECHNIQUE: Following the IV administration of 116 cc of Optiray 320, CT scan of the abdomen and pelvis is performed from the lung bases to the proximal femora. Images are reviewed in the axial, sagittal, and coronal planes. IV contrast was administered without complication. Automated dose control exposure was utilized. CT DOSE: 281.96 mGy.cm FINDINGS: Lung bases: The heart is enlarged and without pericardial effusion. The coronary arteries are densely calcified. There are trace pleural effusions with bibasilar consolidation. A 10 mm nodular density is seen in the right middle lobe on image #11. Liver: The contrast-enhanced liver is normal in size and heterogeneous in attenuation. There is hypertrophy of the left lobe and nodularity of the surface contour system with early change of cirrhosis. There is nonmass-like and nonspecific enhancement identified adjacent to gallbladder fossa seen on image #141, possibly representing a flash filling hemangioma. There is no intrahepatic biliary ductal dilatation. The hepatic veins and portal veins are patent. Gallbladder: Unremarkable. Spleen: The spleen is enlarged, measuring 14 cm in length. There is a large wedge-shaped perfusion defects identified within the superior spleen seen on image #20. This measures up to 5.2 cm. There is no perisplenic hemorrhage identified. Pancreas: Moderately atrophic and grossly unremarkable. Adrenal glands: Unremarkable. Kidneys: The contrast enhanced kidneys are atrophic and without hydronephrosis. A 2 cm cyst is noted in the lower pole the left kidney. Additional subcentimeter cortical hypodensities also likely represent cysts but are too small for definitive characterization. The kidneys demonstrate heterogeneous perfusion. Abdominal vasculature: The abdominal aorta is normal in course and caliber noting advanced atherosclerotic calcification. Bowel: The small bowel and colon are normal in course and caliber. The right colon is largely decompressed. Some mucosal fat deposition is noted throughout the colon. There is no clear colonic wall thickening. The appendix is not identified and reported surgically absent. Peritoneum and retroperitoneal: There is no intraperitoneal free air or abdominal ascites. There is a 3.0 x 1.7 x 1.6 cm cm peripherally enhancing fluid collection identified in the right psoas muscle on image #229. This is seen at the level of L4. Lymphadenopathy: None. Pelvic viscera: The prostate gland is enlarged and heterogeneous, measuring 5.2 cm in transverse diameter. The bladder is decompressed around a Noyola catheter. The bladder wall appears thickened and foci of intraluminal gas are identified. There is a fat and fluid containing left inguinal hernia. Skeletal structures: The skeletal structures are osteopenic. There is moderate lumbosacral spondylosis and scoliosis. No lytic or blastic lesions are seen. IMPRESSION: 1. There is a 3.0 cm peripherally enhancing fluid collection identified in the right psoas muscle typical in appearance for abscess. 2. There is a large perfusion defects seen in the superior spleen measuring up to 5.2 cm. This likely represents a splenic infarct given the absence of trauma. No perisplenic hematoma is identified. 3. The kidneys are atrophic and demonstrate heterogeneous perfusion. This could represent infarct versus pyelonephritis. Infection is favored by imaging. Correlation with clinical findings and urinalysis will be required. 4. Cirrhotic liver morphology and splenomegaly. 5. Trace pleural effusions with bibasilar consolidation. This likely represents atelectasis. Clinical correlation will be required. 6. The bladder appears markedly thick-walled and heterogeneous, and is partially decompressed around a Noyola catheter. Cystitis is not excluded. 7. Cardiomegaly. 8. There is a 10 mm nodular density at the right lung base. This likely represents atelectasis. Precautionary [address] follow-up is recommended for reassessment. 9. Additional findings as above. Findings were discussed with Dr. Andrade in the emergency department at the time of interpretation. Electronically signed by: Edvin Sidhu M.D. 11/26/2016 5:00 PM Dictated Date/Time: 11/26/2016 4:44 PM SINGLE VIEW CHEST CLINICAL HISTORY: Sepsis. FINDINGS: An AP, portable, upright chest radiograph is compared to study dated 10/18/2016. The examination is degraded by portable technique and patient rotation. The heart is mildly enlarged and there is atherosclerotic calcification of the thoracic aorta. Mild pulmonary vascular congestion is observed. There are small pleural effusions and bibasilar consolidation. No pneumothorax is seen. The skeletal structures are osteopenic. The bony thorax is grossly intact. Degenerative change is noted in the thoracic spine. IMPRESSION: 1. Cardiomegaly with evidence of mild congestive failure. 2. Small pleural effusions with bibasilar consolidation. This likely represents atelectasis. Clinical correlation will be required. Electronically signed by: Edvin Sidhu M.D. 11/26/2016 6:21 PM Dictated Date/Time: 11/26/2016 6:20 PM Laboratory Results Test 11/26/16 00:00 11/26/16 15:00 11/26/16 15:10 11/26/16 17:56 Activated Partial Thromboplast Time 32.1 SECONDS (21.0-31.0) Partial Thromboplastin Ratio 1.2 Immature Granulocyte % (Auto) 0.5 % White Blood Count 8.57 K/uL (4.8-10.8) Red Blood Count 4.02 M/uL (4.7-6.1) Hemoglobin 12.9 g/dL (14.0-18.0) Hematocrit 38.2 % (42-52) Mean Corpuscular Volume 95.0 fL (80-100) Mean Corpuscular Hemoglobin 32.1 pg (25-34) Mean Corpuscular Hemoglobin Concent 33.8 g/dl (32-36) Platelet Count 160 K/uL (130-400) Mean Platelet Volume 9.7 fL (7.4-10.4) Neutrophils (%) (Auto) 60.6 % Lymphocytes (%) (Auto) 26.6 % Monocytes (%) (Auto) 9.3 % Eosinophils (%) (Auto) 2.6 % Basophils (%) (Auto) 0.4 % Neutrophils # (Auto) 5.20 K/uL (1.4-6.5) Lymphocytes # (Auto) 2.28 K/uL (1.2-3.4) Monocytes # (Auto) 0.80 K/uL (0.11-0.59) Eosinophils # (Auto) 0.22 K/uL (0-0.5) Basophils # (Auto) 0.03 K/uL (0-0.2) Immature Granulocyte # (Auto) 0.04 K/uL (0.00-0.02) Total Bilirubin 0.6 mg/dl (0.2-1) Aspartate Amino Transf (AST/SGOT) 48 U/L (15-37) Alanine Aminotransferase (ALT/SGPT) 37 U/L (12-78) Alkaline Phosphatase 89 U/L (45-117) Total Creatine Kinase 26 U/L (39-308) Creatine Kinase MB < 0.5 ng/ml (0.5-3.6) Creatine Kinase MB Ratio (0-3.0) Troponin I < 0.015 ng/ml (0-0.045) Total Protein 6.7 gm/dl (6.4-8.2) Albumin 2.2 gm/dl (3.4-5.0) Globulin 4.5 gm/dl (2.5-4.0) Albumin/Globulin Ratio 0.5 (0.9-2) Lipase 497 U/L (73-393) Procalcitonin 0.12 ng/ml (0-0.5) Urine Color ORANGE Urine Appearance SLIGHTLY CLOUDY (CLEAR) Urine pH (4.5-7.5) Urine Specific Crook 1.022 (1.000-1.030) Urine Protein (NEG) Urine Glucose (UA) (NEG) Urine Ketones (NEG) Urine Occult Blood (NEG) Urine Nitrite (NEG) Urine Bilirubin (NEG) Urine Urobilinogen (NEG) Urine Leukocyte Esterase (NEG) Urine RBC 5-10 /hpf (0-4) Urine WBC 10-30 /hpf (0-5) Urine Epithelial Cells 10-20 /lpf (0-5) Urine Calcium Oxalate Crystals PRESENT (NONE PRSENT) Urine Bacteria 1+ (NEG) Urine Mucus PRESENT (NONE PRSENT) Bedside Lactic Acid Venous 1.74 mmol/L (0.90-1.70) Laboratory results per my review. Medications Administered Medications (Trade) Dose Ordered Sig/Malik Route Start Time Stop Time Status Last Admin Dose Admin Daptomycin 400 mg/ Sodium Chloride 58 ml @ 100 mls/hr NOW STAT IV 11/26/16 17:38 11/26/16 18:12 DC 11/26/16 18:42 100 MLS/HR Imipenem/ Cilastatin Sodium/ Dextrose (Primaxin Iv/D5 100ml) 110 ml @ 100 mls/hr NOW STAT IV 11/26/16 17:38 11/26/16 18:43 DC 11/26/16 18:43 100 MLS/HR Procedure The patient was treated with Imipenem/Cilastatin Sodium 500 mg/Dextrose 110 ml @ 100 mls/hr IV, Daptomycin 400 mg/Sodium Chloride 58 mg/Sodium Chloride 58 ml @ @100 mls/hr IV. ECG Indication: abdominal pain, weakness Rate (beats per minute): 80 Rhythm: normal sinus Findings: no acute ischemic change, no ectopy Comparison ECG Date: 10/18/16 Change: EKG Change: When compared to EKG done on 10/18/16, ST changes have improved. ED Course 1432: Past medical records reviewed. The patient was evaluated in room C5. A complete history and physical exam was performed. A sepsis protocol was performed. A urine specimen was obtained from his Noyola catheter. The patient went for CT scan of the abdomen/pelvis because of his complaints of abdominal pain. 1652: I discussed the patients radiology reports with Dr. Sidhu, Radiology. 1726: I reevaluated the patient and he is resting comfortably. I discussed all the exam findings with the patient and his family and I discussed the treatment plan. The patient and family verbalized complete understanding and agreement. I re-examined the patient's abdomen and so as area with no positive findings. I discussed the patient's CODE STATUS with his daughter. She confirmed that the patient is a level V. The patient will be evaluated for further treatment. 1735: I discussed the patients case with Vida Martin PA-C. She is going to evaluate the patient for further treatment. 1738: Ordered Imipenem/Cilastatin Sodium 500 mg/Dextrose 110 ml @ 100 mls/hr IV , Daptomycin 400 mg/Sodium Chloride 58 mg/Sodium Chloride 58 ml @ @100 mls/hr IV. Medical Decision The patient is an 86 year old male who presents to the ED with abdominal pain. Differential diagnosis includes pyelonephritis, cystitis, sepsis, dehydration, diverticulitis, colitis. Lab interpretation: no leukocytosis, anemic hemoglobin 12.9, normal renal function, glucose 137, calcium 8, lipase 497, cardiac enzymes are negative, LFTs are unremarkable, cath urine specimen was urine in color, positive bacteria , 10-30 white blood cells, lactic acid 1.74. This is an 86-year-old male patient who presents to emergency department with increasing abdominal pain. The patient was recently discharged from [facility] after having significant infection with pneumonia and urinary tract infection. He finished a course of Bactrim 2 days ago. He does have an indwelling Noyola catheter. The daughter describes extreme decline in the patient's well-being over the past [address] scan of the abdomen/pelvis shows evidence of probable pyelonephritis and cystitis as well as multiple other positive findings including a splenic infarct. This was thought possibly to be secondary to sepsis. The patient is afebrile at this time. Lactic acid was normal. However, the patient was started on IV antibiotics to cover pyelonephritis. The patient's daughter was able to translate these findings back to the patient. He remains hemolytically stable. He was receiving some IV fluids. Consults Time Called: 173 Consulting Physician: Vida Martin PA-C Returned Call: 173 I discussed the patients case with Vida Martin PA-C. She is going to evaluate the patient for further treatment. Impression Primary Impression: Splenic infarct Additional Impression: Pyelonephritis Scribe Attestation The scribe's documentation has been prepared under my direction and personally reviewed by me in its entirety. I confirm that the note above accurately reflects all work, treatment, procedures, and medical decision making performed by me. Departure Information Dispostion Being Evaluated By Hospitalist Referrals Tamara Toribio D.O. (PCP) Problem Qualifiers
[2016-11-26] MEDS ORDERED: OPTIRAY 320 IV PRN (15:00)
[2016-11-26 15:22] LABS: BASO % 0.4 %; BASO ABS # 0.03 K/uL (0-0.2); COMPLETE YES; EOS % 2.6 %; HEMATOCRIT 38.2 % (42-52); IG% 0.5 %; LYMPH % 26.6 %; LYMPH ABS # 2.28 K/uL (1.2-3.4); MEAN CORPUSCULAR HEMOGLOBIN 32.1 pg (25-34); MEAN CORPUSCULAR HGB CONC 33.8 g/dl (32-36); MEAN PLATELET VOLUME 9.7 fL (7.4-10.4); MONO % 9.3 %; NEUT % 60.6 %; PLATELET COUNT 160 K/uL (130-400); RED BLOOD COUNT 4.02 M/uL (4.7-6.1); WHITE BLOOD COUNT 8.57 K/uL (4.8-10.8)
[2016-11-26 15:35] LABS: ALT/SGPT 37 U/L (12-78); AST/SGOT 48 U/L (15-37); BLOOD UREA NITROGEN 18 mg/dl (7-18); BUN/CREATININE RATIO 19.8 (10-20); CARBON DIOXIDE 24 mmol/L (21-32); CHLORIDE 107 mmol/L (98-107); CREATININE 0.89 mg/dl (0.60-1.40); GLUCOSE 137 mg/dl (70-99); SODIUM 139 mmol/L (136-145)
[2016-11-26 15:36] LABS: MANUAL MICROSCOPIC REQUIRED? YES; REVIEW REQ? NO; URINE COLOR ORANGE
[2016-11-26 15:37] LABS: SULFASALICYLIC ACID NEG (NEG); URINE APPEARANCE SLIGHTLY CLOUDY (CLEAR); URINE SPECIFIC GRAVITY 1.022 (1.000-1.030)
[2016-11-26 15:40] LABS: ALB/GLOB RATIO 0.5 (0.9-2); ALKALINE PHOSPHATASE 89 U/L (45-117)
[2016-11-26] MEDS ORDERED: METO25TA56 PO (15:43)
[2016-11-26] MEDS ORDERED: CMD/25 PO (15:43)
[2016-11-26 15:44] LABS: URINE BACTERIA 1+ (NEG)
[2016-11-26 15:45] LABS: URINE MUCUS PRESENT (NONE PRSENT)
[2016-11-26] MEDS ORDERED: DOCU-94 PO (15:46)
[2016-11-26] MEDS ORDERED: SENN-104 PO (15:46)
[2016-11-26] MEDS ORDERED: PHEN-876 PO (15:46)
--- NOTE | 2016-11-26 17:01 | DIAGNOSTIC IMAGING REPORT ---
CT SCAN OF THE ABDOMEN AND PELVIS WITH IV CONTRAST CLINICAL HISTORY: Generalized abdominal pain. COMPARISON STUDY: Abdominal CT dated 10/16/2016. TECHNIQUE: Following the IV administration of 116 cc of Optiray 320, CT scan of the abdomen and pelvis is performed from the lung bases to the proximal femora. Images are reviewed in the axial, sagittal, and coronal planes. IV contrast was administered without complication. Automated dose control exposure was utilized. CT DOSE: 281.96 mGy.cm FINDINGS: Lung bases: The heart is enlarged and without pericardial effusion. The coronary arteries are densely calcified. There are trace pleural effusions with bibasilar consolidation. A 10 mm nodular density is seen in the right middle lobe on image #11. Liver: The contrast-enhanced liver is normal in size and heterogeneous in attenuation. There is hypertrophy of the left lobe and nodularity of the surface contour system with early change of cirrhosis. There is nonmass-like and nonspecific enhancement identified adjacent to gallbladder fossa seen on image #141, possibly representing a flash filling hemangioma. There is no intrahepatic biliary ductal dilatation. The hepatic veins and portal veins are patent. Gallbladder: Unremarkable. Spleen: The spleen is enlarged, measuring 14 cm in length. There is a large wedge-shaped perfusion defects identified within the superior spleen seen on image #20. This measures up to 5.2 cm. There is no perisplenic hemorrhage identified. Pancreas: Moderately atrophic and grossly unremarkable. Adrenal glands: Unremarkable. Kidneys: The contrast enhanced kidneys are atrophic and without hydronephrosis. A 2 cm cyst is noted in the lower pole the left kidney. Additional subcentimeter cortical hypodensities also likely represent cysts but are too small for definitive characterization. The kidneys demonstrate heterogeneous perfusion. Abdominal vasculature: The abdominal aorta is normal in course and caliber noting advanced atherosclerotic calcification. Bowel: The small bowel and colon are normal in course and caliber. The right colon is largely decompressed. Some mucosal fat deposition is noted throughout the colon. There is no clear colonic wall thickening. The appendix is not identified and reported surgically absent. Peritoneum and retroperitoneal: There is no intraperitoneal free air or abdominal ascites. There is a 3.0 x 1.7 x 1.6 cm cm peripherally enhancing fluid collection identified in the right psoas muscle on image #229. This is seen at the level of L4. Lymphadenopathy: None. Pelvic viscera: The prostate gland is enlarged and heterogeneous, measuring 5.2 cm in transverse diameter. The bladder is decompressed around a Noyola catheter. The bladder wall appears thickened and foci of intraluminal gas are identified. There is a fat and fluid containing left inguinal hernia. Skeletal structures: The skeletal structures are osteopenic. There is moderate lumbosacral spondylosis and scoliosis. No lytic or blastic lesions are seen. IMPRESSION: 1. There is a 3.0 cm peripherally enhancing fluid collection identified in the right psoas muscle typical in appearance for abscess. 2. There is a large perfusion defects seen in the superior spleen measuring up to 5.2 cm. This likely represents a splenic infarct given the absence of trauma. No perisplenic hematoma is identified. 3. The kidneys are atrophic and demonstrate heterogeneous perfusion. This could represent infarct versus pyelonephritis. Infection is favored by imaging. Correlation with clinical findings and urinalysis will be required. 4. Cirrhotic liver morphology and splenomegaly. 5. Trace pleural effusions with bibasilar consolidation. This likely represents atelectasis. Clinical correlation will be required. 6. The bladder appears markedly thick-walled and heterogeneous, and is partially decompressed around a Noyola catheter. Cystitis is not excluded. 7. Cardiomegaly. 8. There is a 10 mm nodular density at the right lung base. This likely represents atelectasis. Precautionary [address] follow-up is recommended for reassessment. 9. Additional findings as above. Findings were discussed with Dr. Andrade in the emergency department at the time of interpretation. Electronically signed by: Edvin Sidhu M.D. 11/26/2016 5:00 PM Dictated Date/Time: 11/26/2016 4:44 PM
[2016-11-26] MEDS ORDERED: IMIPENEM/CILASTATIN IV 500 MG in DEXTROSE 5% 100ML 100 ML IV STA (17:38)
[2016-11-26] MEDS ORDERED: DAPTOmycin IV 400 MG in SODIUM CHLORIDE 0.9% 50ML 50 ML IV STA (17:38)
[2016-11-26 18:11] LABS: INR 1.6 (0.9-1.1); PARTIAL THROMBOPLASTIN RATIO 1.2; PROTHROMBIN TIME (PATIENT) 17.4 SECONDS (9.0-12.0)
--- NOTE | 2016-11-26 18:23 | DIAGNOSTIC IMAGING REPORT ---
SINGLE VIEW CHEST CLINICAL HISTORY: Sepsis. FINDINGS: An AP, portable, upright chest radiograph is compared to study dated 10/18/2016. The examination is degraded by portable technique and patient rotation. The heart is mildly enlarged and there is atherosclerotic calcification of the thoracic aorta. Mild pulmonary vascular congestion is observed. There are small pleural effusions and bibasilar consolidation. No pneumothorax is seen. The skeletal structures are osteopenic. The bony thorax is grossly intact. Degenerative change is noted in the thoracic spine. IMPRESSION: 1. Cardiomegaly with evidence of mild congestive failure. 2. Small pleural effusions with bibasilar consolidation. This likely represents atelectasis. Clinical correlation will be required. Electronically signed by: Edvin Sidhu M.D. 11/26/2016 6:21 PM Dictated Date/Time: 11/26/2016 6:20 PM
[2016-11-26] MEDS ORDERED: CONSULT PHARMACY STA (18:37)
[2016-11-26] MEDS ORDERED: ONDANSETRON INJ 2 MG/ML 2 ML VIAL IV PRN (18:45)
[2016-11-26] MEDS ORDERED: ACETAMINOPHEN 325 MG TAB PO PRN (18:45)
[2016-11-26] MEDS ORDERED: NITROGLYCERIN 0.4 MG SL PER TAB CHARGE SL PRN (18:45)
[2016-11-26] MEDS ORDERED: PHENAZOPYRIDINE HCL 200 MG TAB PO PRN (19:00)
[2016-11-26] MEDS ORDERED: DOCUSATE SODIUM/SENNA 50/8.6MG TAB PO PRN (19:00)
[2016-11-26] MEDS ORDERED: DOCUSATE SODIUM 100 MG CAP PO PRN (19:00)
--- NOTE | 2016-11-26 19:31 | History and Physical ---
History & Physical Date & Time of Service: November 26, 2016 at 18:44 Chief Complaint: Abd Pain/Lethargic Primary Care Physician: Tamara Toribio D.O. History of Present Illness Source: patient, family This is an 86 y/o male with PMHx of urinary retention with chronic indwelling murray, recent history of DVT, PAF on Coumadin and other problems as outlined below who presents to the ED c/o abdominal pain x 2 days. Pt was recently admitted to [facility], [place] from 10/16-10/25 with severe sepsis 2* pneumonia, NSTEMI, Afib with RVR and acute on chronic heart failure. Pt was discharged to [facility]. While at [facility] patient was placed on Coumadin for a DVT. He was discharged 11/17 and is currently living at home with his . History is obtained from daughters at bedside as patient only speaks Tu[place]. Per daughter , patient has been complaining of abdominal pain for 2 days. He describes the pain as severe LLQ squeezing with intermittent spasms. His sxs are assoc with generalized weakness and loss of appetite. Pt has been having >6 soft BMs daily. Pt has a chronic indwelling murray catheter for urinary retention. He recently completed a course of Bactrim. Pt denies fever/chills, diaphoresis, chest pain, SOB, N/V, hematochezia, melena, LE edema ,calf pain, lightheadedness /dizziness. In the ED, vitals are stable. Pt is afebrile with no leukocytosis. LFTs WNL. Lipase mildly elevated. 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 Pt is stable and will be admitted for further evaluation and treatment. Past Medical/Surgical History Medical Problems: (1) BPH (benign prostatic hyperplasia) Status: Chronic (2) Chronic back pain Status: Chronic (3) Diastolic CHF Status: Chronic (4) PAF (paroxysmal atrial fibrillation) Status: Chronic (5) Urinary retention Status: Chronic Surgical Problems: (1) No pertinent past surgical history Status: Chronic Family History Patient reports no known family medical history. Social History Smoking Status: Never Smoker Alcohol Use: none Drug Use: none Marital Status: Housing status: lives with family Occupational Status: retired Multi-Drug Resistant Organisms History of MDRO: No Allergies Coded Allergies: No Known Allergies (Verified , 10/16/16) Home Medications Scheduled Dutasteride (Avodart), 0.5 MG PO DAILY Metoprolol Tartrate (Lopressor) (Lopressor), 25 MG PO BID Nitroglycerin (Nitrostat), 0.4 MG UT PRN Tamsulosin Hcl (Flomax), 0.4 MG PO DAILY Warfarin Sod (Coumadin), 2.5 MG PO ON HOLD Scheduled PRN Acetaminophen (Tylenol), 500 MG PO Q4 PRN for Pain or Fever Docusate Sodium (Colace), 1 CAP PO BID PRN for Constipation Phenazopyridine HCl (Pyridium), 200 MG PO TID PRN for Bladder pain Sennosides-Docusate Sodium (Senna-S), 1 TAB PO DAILY PRN for Constipation Review of Systems Constitutional: + fatigue, + weakness, No chills, No fever, No sweats Eyes: No worsening of vision ENT: No hearing loss Respiratory: No cough, No shortness of breath Cardiovascular: No chest pain, No claudication, No edema Abdomen: + pain, No GI bleeding, No constipation, No diarrhea, No nausea, No vomiting Musculoskeletal: No calf pain, No swelling Genitourinary - Male: + problem reported (chronic murray catheter), No dysuria Neurologic: + weakness Psychiatric: No depression symptoms Endocrine: + fatigue Hematologic / Lymphatic: No abnormal bleeding/bruising Integumentary: No new/changing skin lesions Physical Exam Vital Signs Date Time Temp Pulse Resp B/P Pulse Ox O2 Delivery O2 Flow Rate FiO2 11/26/16 17:28 81 22 128/65 94 Room Air 11/26/16 17:28 94 Room Air 11/26/16 16:14 75 18 112/66 94 Room Air 11/26/16 15:20 77 11/26/16 13:59 36.8 79 18 131/73 93 Room Air General Appearance: WD/WN, no apparent distress, + pertinent finding (Pt is laying in bed with daughters at bedside ) Head: normocephalic, atraumatic Eyes: normal inspection ENT: hearing grossly normal Neck: supple Respiratory/Chest: chest non-tender, lungs clear, normal breath sounds, no respiratory distress Cardiovascular: regular rate, rhythm, no edema, no murmur Abdomen/GI: normal bowel sounds, non tender, soft Genitourinary - Male: + pertinent finding (indwelling murray draining tea- colored urine) Back: normal inspection Extremities/Musculoskelatal: normal inspection, no calf tenderness, no pedal edema Neurologic/Psych: alert, normal mood/affect, oriented x 3 Skin: + pallor Diagnostics Laboratory Results Results Past 24 Hours Test 11/26/16 00:00 11/26/16 15:00 11/26/16 15:10 11/26/16 17:56 Range/Units Prothrombin Time 17.4 9.0-12.0 SECONDS Prothromb Time International Ratio 1.6 0.9-1.1 Activated Partial Thromboplast Time 32.1 21.0-31.0 SECONDS Partial Thromboplastin Ratio 1.2 White Blood Count 8.57 4.8-10.8 K/uL Red Blood Count 4.02 4.7-6.1 M/uL Hemoglobin 12.9 14.0-18.0 g/dL Hematocrit 38.2 42-52 % Mean Corpuscular Volume 95.0 80-100 fL Mean Corpuscular Hemoglobin 32.1 25-34 pg Mean Corpuscular Hemoglobin Concent 33.8 32-36 g/dl Platelet Count 160 130-400 K/uL Mean Platelet Volume 9.7 7.4-10.4 fL Neutrophils (%) (Auto) 60.6 % Lymphocytes (%) (Auto) 26.6 % Monocytes (%) (Auto) 9.3 % Eosinophils (%) (Auto) 2.6 % Basophils (%) (Auto) 0.4 % Neutrophils # (Auto) 5.20 1.4-6.5 K/uL Lymphocytes # (Auto) 2.28 1.2-3.4 K/uL Monocytes # (Auto) 0.80 0.11-0.59 K/uL Eosinophils # (Auto) 0.22 0-0.5 K/uL Basophils # (Auto) 0.03 0-0.2 K/uL RDW Standard Deviation 55.5 36.4-46.3 fL RDW Coefficient of Variation 15.9 11.5-14.5 % Immature Granulocyte % (Auto) 0.5 % Immature Granulocyte # (Auto) 0.04 0.00-0.02 K/uL Sodium Level 139 136-145 mmol/L Potassium Level 4.0 3.5-5.1 mmol/L Chloride Level 107 98-107 mmol/L Carbon Dioxide Level 24 21-32 mmol/L Anion Gap 8.0 3-11 mmol/L Blood Urea Nitrogen 18 7-18 mg/dl Creatinine 0.89 0.60-1.40 mg/dl Estimated GFR () 89.1 Estimated GFR (Non- 76.9 BUN/Creatinine Ratio 19.8 10-20 Random Glucose 137 70-99 mg/dl Calcium Level 8.0 8.5-10.1 mg/dl Total Bilirubin 0.6 0.2-1 mg/dl Aspartate Amino Transf (AST/SGOT) 48 15-37 U/L Alanine Aminotransferase (ALT/SGPT) 37 12-78 U/L Alkaline Phosphatase 89 45-117 U/L Total Creatine Kinase 26 39-308 U/L Creatine Kinase MB < 0.5 0.5-3.6 ng/ml Creatine Kinase MB Ratio 0-3.0 Troponin I < 0.015 0-0.045 ng/ml Total Protein 6.7 6.4-8.2 gm/dl Albumin 2.2 3.4-5.0 gm/dl Globulin 4.5 2.5-4.0 gm/dl Albumin/Globulin Ratio 0.5 0.9-2 Lipase 497 73-393 U/L Urine Color ORANGE Urine Appearance SLIGHTLY CLOUDY CLEAR Urine pH 4.5-7.5 Urine Specific [place] 1.022 1.000-1.030 Urine Protein NEG Urine Glucose (UA) NEG Urine Ketones NEG Urine Occult Blood NEG Urine Nitrite NEG Urine Bilirubin NEG Urine Urobilinogen NEG Urine Leukocyte Esterase NEG Urine RBC 5-10 0-4 /hpf Urine WBC 10-30 0-5 /hpf Urine Epithelial Cells 10-20 0-5 /lpf Urine Calcium Oxalate Crystals PRESENT NONE PRSENT Urine Bacteria 1+ NEG Urine Mucus PRESENT NONE PRSENT Bedside Lactic Acid Venous 1.74 0.90-1.70 mmol/L Microbiology Results 11/26/16 Blood Culture, Received Pending 11/26/16 Blood Culture, Received Pending Diagnostic Radiology CXR IMPRESSION: 1. Cardiomegaly with evidence of mild congestive failure. 2. Small pleural effusions with bibasilar consolidation. This likely represents atelectasis. Clinical correlation will be required. CT ABD/PELVIS IMPRESSION: 1. There is a 3.0 cm peripherally enhancing fluid collection identified in the right psoas muscle typical in appearance for abscess. 2. There is a large perfusion defects seen in the superior spleen measuring up to 5.2 cm. This likely represents a splenic infarct given the absence of trauma. No perisplenic hematoma is identified. 3. The kidneys are atrophic and demonstrate heterogeneous perfusion. This could represent infarct versus pyelonephritis. Infection is favored by imaging. Correlation with clinical findings and urinalysis will be required. 4. Cirrhotic liver morphology and splenomegaly. 5. Trace pleural effusions with bibasilar consolidation. This likely represents atelectasis. Clinical correlation will be required. 6. The bladder appears markedly thick-walled and heterogeneous, and is partially decompressed around a Murray catheter. Cystitis is not excluded. 7. Cardiomegaly. 8. There is a 10 mm nodular density at the right lung base. This likely represents atelectasis. Precautionary [address] follow-up is recommended for reassessment. 9. Additional findings as above. EKG EKG: NSR with sinus arrhythmia and nonspec T wave abnormality in lateral leads; sinus rhythm has replaced Afib and nonspec T wave abnormality has replaced T wave inversion in lateral leads Impression Assessment and Plan ABDOMINAL PAIN; UNCLEAR CAUSE pt presented c/o LLQ abdominal pain x 2 days assoc with weakness and loss of appetite -admit to telemetry -pt is afebrile with no leukocytosis; abdominal exam is benign -CT abd/pelvis + splenic infarct (see above for full report) -start gentle IVF -pt is already on anticoagulation -consult surgery, Dr. Moura -monitor R PSOAS ABSCESS -afebrile no leuks; lactic acid 1.74 -CT abd/pelvis + 3.0 cm peripherally enhancing fluid collection identified in the right psoas muscle typical in appearance for abscess. -blood cx-pending -check procalcitonin and LDH -start broad spectrum abx -surgery consulted RECENT LLE DVT -unable to find ultrasound report -started Coumadin 11/17 -cont Coumadin -INR subtherapeutic at 1.6; bridge with Lovenox -monitor INR daily PAROXYSMAL AFIB -EKG: NSR -cont metoprolol and Coumadin -INR subtherapeutic -monitor INR daily URINARY RETENTION WITH CHRONIC MURRAY -cont urinary catheter -cont home meds -pt follows with urology, Dr. Rodriguez HTN -BP stable -cont metoprolol -monitor DVT PROPHYLAXIS -cont Coumadin; bridge with Lovenox for subtherapeutic INR CODE STATUS -DNR per discussion with patient and family at time of admission DISPO Pt seen in collaboration with Dr. Hernandez. Please see his addendum for further details. Thanks! -Of note: patient will be seen by Dr. Knutson starting tomorrow AM. Pt was seen and examined. Agreed with Nona RICHARD exam, assessment and plan.86 y /o male with PMHx of urinary retention with chronic indwelling murray, recent history of DVT, PAF on Coumadin presents to the ED c/o abdominal pain x 2 days. Pt was recently admitted to [facility] [place] from 10/16-10/25 with severe sepsis 2* pneumonia , NSTEMI. He was discharged to [facility]. As per Daughter this morning pt was very drowsy and was not able to keep his eyes open. He was complaint of severe Left sided abdominal pain, 10/10 and non radiated. Currently patient denies any abdominal pain. CT abdominal done shown possible splenic infarct and psoas muscle typical in appearance for abscess. Denies any fever, chest pain, palpitation and SOB. General- No acute distress, speak [place] Head- atraumatic Eyes- PERRL, EOMI ENT- oropharynx clear Neck- supple, no JVD Lungs- clear to auscultation Heart- regular rhythm Abdomen- normal bowel sounds, soft, nontender Extremities-no calf tenderness A/P ABDOMINAL PAIN Unknown etiology - afebrile with no leukocytosis; Currently no abdominal pain on exam -CT abd/pelvis showed splenic infarct -start gentle IVF -Check LDH -Continue anticoagulant -consult surgery, Dr. Moura -monitor R PSOAS ABSCESS -afebrile no leuks; lactic acid wnl -CT abd/pelvis + 3.0 cm peripherally enhancing fluid collection identified in the right psoas muscle typical in appearance for abscess. Discussed CT with radiologist Dr. Sidhu that confirmed the finding is an abscess -blood cx-pending -check procalcitonin -start broad spectrum abx -surgery consulted Continue monitor him. RIGHT LUNG NODULES CT showed a 10 mm nodular density at the right lung base Need follow up CT in 3 months for reassessment. Lab, imaging, EKG reviewed Please refer to Nona RICHARD documentation for other problems Samantha Hernandez MD VTE Prophylaxis VTE Risk Assessment Done? Y/N: Yes Risk Level: High
[2016-11-26 20:29] VITALS: BP 146/71; PULSE 82; TEMP 36.9; O2SAT 95; Ht 167.6 cm; Wt 66.5 kg
[2016-11-26] MEDS ORDERED: VANCOMYCIN CONSULT ACTIVE PRN (20:45)
[2016-11-26] MEDS ORDERED: PIPERACILL/TAZOBAC CONSULT ACTIVE PRN (20:45)
[2016-11-26] MEDS: SODIUM CHLORIDE 0.9% 1000ML 1,000 ML IV SCH (21:21)
[2016-11-26] MEDS: ENOXAPARIN 40 MG/0.4 ML SYR SQ SCH (21:30)
[2016-11-26] MEDS: METOPROLOL TARTRATE 25 MG TAB PO SCH (21:30)
[2016-11-26] MEDS ORDERED: HYDROCODONE/ACETAMOPHEN 5/325MG TAB PO ONE (22:00)
--- NOTE | 2016-11-26 22:22 | Pharmacy Progress Note ---
Pharmacy Antibiotic Consult Date of Service: November 26, 2016. Pharmacy Dosing Scope Pharmacy is consulted to initiate vancomycin and Zosyn IV dosing therapy, order appropriate labs and adjust drug dose/frequency. Subjective The patient is a 86 year old male admitted on November 26, 2016 at 18:37 for possible UTI and psoas abscess. Objective Height (Feet): 5 Height (Inches): 6.00 Weight (Kilograms): 63.600 Lab Results (24hrs): Laboratory Tests Test 11/26/16 15:00 BUN/Creatinine Ratio 19.8 Blood Urea Nitrogen 18 mg/dl Creatinine 0.89 mg/dl White Blood Count 8.57 K/uL Red Blood Count 4.02 M/uL Hemoglobin 12.9 g/dL Hematocrit 38.2 % Mean Corpuscular Volume 95.0 fL Mean Corpuscular Hemoglobin 32.1 pg Mean Corpuscular Hemoglobin Concent 33.8 g/dl Platelet Count 160 K/uL Mean Platelet Volume 9.7 fL Neutrophils (%) (Auto) 60.6 % Lymphocytes (%) (Auto) 26.6 % Monocytes (%) (Auto) 9.3 % Eosinophils (%) (Auto) 2.6 % Basophils (%) (Auto) 0.4 % Neutrophils # (Auto) 5.20 K/uL Lymphocytes # (Auto) 2.28 K/uL Monocytes # (Auto) 0.80 K/uL Eosinophils # (Auto) 0.22 K/uL Basophils # (Auto) 0.03 K/uL Assessment & Plan ASSESSMENT: * 86 y/o male admitted w/ possible UTI w/ chronic haas and possible psoas abscess * Pertinent PMH includes a recent hospital stay for sepsis - rec'd vancomycin at that time but SCr was significantly different than now * Est PK parameters: Vd 0.7 L/kg, Andrea 0.078 hr-1, t1/2 8.8 hrs PLAN: * Vancomycin 1500 mg (25 mg/kg) IV x 1, then * Vancomycin 900 mg (14.2 mg/kg) IV q10h * Goal trough 15-20 * Trough level ordered prior to the 4th overall dose on 11/28 * Zosyn 3.375 gm, then 3.375 gm (extended infusion) IV q8h Pharmacy will continue to follow and will adjust dose/frequency as necessary. Thank you
[2016-11-26] MEDS ORDERED: PIPERACILL/TAZOBAC IV 3.375 GM in DEXTROSE 5% 100ML IV ONE (22:30)
[2016-11-26] MEDS ORDERED: VANCOMYCIN INJ 1,500 MG in SODIUM CHLORIDE 0.9% 500ML 500 ML IV ONE (22:30)
[2016-11-26 23:45] VITALS: BP 126/69; PULSE 74; TEMP 36.5; O2SAT 93
[2016-11-27] VITALS (11 sets, daily range): BP systolic 111–163; BP diastolic 60–90; PULSE 67–86; TEMP 36.4–37.2; O2SAT 93–97
[2016-11-27] MEDS ORDERED: MoRPHine SULFATE 2 MG/ML CARP IV STA (00:45)
[2016-11-27] MEDS: PIPERACILL/TAZOBAC IV 3.375 GM in DEXTROSE 5% 100ML IV SCH ×3 (04:14→20:16)
[2016-11-27 07:21] LABS: HEMATOCRIT 39.3 % (42-52); MEAN CELL VOLUME 95.6 fL (80-100); MEAN CORPUSCULAR HEMOGLOBIN 31.4 pg (25-34); MEAN CORPUSCULAR HGB CONC 32.8 g/dl (32-36); MEAN PLATELET VOLUME 9.8 fL (7.4-10.4); PLATELET COUNT 152 K/uL (130-400); RED BLOOD COUNT 4.11 M/uL (4.7-6.1); WHITE BLOOD COUNT 8.74 K/uL (4.8-10.8)
[2016-11-27 07:31] LABS: INR 1.6 (0.9-1.1); PROTHROMBIN TIME (PATIENT) 17.5 SECONDS (9.0-12.0)
[2016-11-27 07:55] LABS: BUN/CREATININE RATIO 16.7 (10-20); CALCIUM 7.9 mg/dl (8.5-10.1); CREATININE 0.84 mg/dl (0.60-1.40); POTASSIUM 3.9 mmol/L (3.5-5.1)
[2016-11-27] MEDS ORDERED: VANCOMYCIN INJ 900 MG in SODIUM CHLORIDE 0.9% 250ML 250 ML IV SCH (08:00)
[2016-11-27] MEDS: AVODART: ORDER AWAITING ACTION SCH ×4 (08:00→23:45)
[2016-11-27] MEDS: TAMSULOSIN HCL 0.4 MG CAP PO SCH (08:07)
[2016-11-27] MEDS: METOPROLOL TARTRATE 25 MG TAB PO SCH ×2 (08:07→20:50)
[2016-11-27] MEDS ORDERED: CONSULT PHARMACY SCH (09:00)
--- NOTE | 2016-11-27 10:25 | Pharmacy Progress Note ---
Pharmacy Antibiotic Consult Date of Service: November 27, 2016. Pharmacy Dosing Scope Pharmacy is consulted to initiate Vancomycin IV dosing therapy for complicated UTI, order appropriate labs and adjust drug dose/frequency. To note, pharmacy has also been consulted to dose and monitor Zosyn IV therapy for complicated UTI. Subjective The patient is a 86 year old male admitted on November 26, 2016 at 18:37. Objective Height (Feet): 5 Height (Inches): 6.00 Weight (Kilograms): 65.000 Lab Results (24hrs): Laboratory Tests Test 11/26/16 15:00 11/27/16 06:40 BUN/Creatinine Ratio 19.8 16.7 Blood Urea Nitrogen 18 mg/dl 14 mg/dl Creatinine 0.89 mg/dl 0.84 mg/dl White Blood Count 8.57 K/uL 8.74 K/uL Red Blood Count 4.02 M/uL Hemoglobin 12.9 g/dL Hematocrit 38.2 % Mean Corpuscular Volume 95.0 fL Mean Corpuscular Hemoglobin 32.1 pg Mean Corpuscular Hemoglobin Concent 33.8 g/dl Platelet Count 160 K/uL Mean Platelet Volume 9.7 fL Neutrophils (%) (Auto) 60.6 % Lymphocytes (%) (Auto) 26.6 % Monocytes (%) (Auto) 9.3 % Eosinophils (%) (Auto) 2.6 % Basophils (%) (Auto) 0.4 % Neutrophils # (Auto) 5.20 K/uL Lymphocytes # (Auto) 2.28 K/uL Monocytes # (Auto) 0.80 K/uL Eosinophils # (Auto) 0.22 K/uL Basophils # (Auto) 0.03 K/uL Micro Results: Item Value Date Time Blood Culture Received 11/26/16 1750 Blood Pending Blood Culture Received 11/26/16 1750 Blood Pending Recent Pertinent Medications Item Value Date Time Daptomycin 400 mg/ 58 ml @ 100 mls/hr 11/26/16 1738 Sodium Chloride NOW STAT/IV 11/26/16 1842 Imipenem/ 110 ml @ 100 mls/hr 11/26/16 1738 Cilastatin Sodium NOW STAT/IV 11/26/16 1843 500 mg/Dextrose Piperacillin Sod/ 115 ml @ 230 mls/hr 11/26/16 2230 Tazobactam Sod TODAY@2230 ONCE/IV 11/26/16 2243 3.375 gm/Dextrose Piperacillin Sod/ 115 ml @ 28.75 mls/hr 11/27/16 0400 Tazobactam Sod Q8@0400,1200,2000/IV 11/27/16 0414 3.375 gm/Dextrose Vancomycin HCl 530 ml @ 200 mls/hr 11/26/16 2230 1500 mg/Sodium TODAY@2230 ONCE/IV 11/26/16 2243 Chloride Vancomycin HCl 268 ml @ 125 mls/hr 11/27/16 0800 900 mg/Sodium Q10H/IV 11/27/16 0804 Chloride Assessment & Plan Pharmacy has been consulted to dose and monitor Vancomycin for a complicated UTI. Due to changes in renal function, Vancomycin dosing has been changed to reflect new CrCl: Vancomycin 1000 mg (~15mg/kg) IV every 18 hours. * New estimated p'kinetic levels: ke= 0.0517/hr, t1/2= 13 hrs * Goal trough level estimate: between 15 - 20 mcg/mL. * Trough level has been ordered for: ~30 minutes before the 5th dose at 1400 when Vancomycin steady state levels have been reached. Pharmacy will continue to follow and will adjust dose/frequency as necessary. Thank you
--- NOTE | 2016-11-27 10:38 | Medical Consult ---
Consultation Date of Consultation: November 27, 2016. Attending Physician: Juan Knutson M.D. Reason for Consultation: Splenic Infarct History of Present Illness History of Present Illness obtained from patient using I-Pad translation- patient speaks only Niuean. Per nurse, Lewis, pt's daughter, , and [id number] are planning to return to hospital around noon today. 86-year-old male with past medical history significant for urinary retention with chronic indwelling catheter, paroxysmal atrial fibrillation, recent DVT presents to the ED for evaluation of left-sided abdominal pain X 2 days with decreased appetite. Patient was recently discharged from [facility] to home after 10 day hospital stay at [facility] for severe sepsis secondary to pneumonia. Currently, patient reports mild generalized abdominal tenderness and weakness. Patient denies fever or chills. Patient denies nausea or vomiting. Patient denies constipation or diarrhea. Denies chest pain. Denies shortness of breath. Past Medical/Surgical History Medical Problems: (1) ARF (acute renal failure) Status: Acute (2) Atrial fibrillation with RVR Status: Acute (3) Pneumonia Status: Acute (4) Pyelonephritis Status: Acute (5) Splenic infarct Status: Acute Surgical History Patient reports Appendectomy 30+ years ago. Family History Patient reports no known family medical history. Social History Smoking Status: Never Smoker Alcohol Use: none Drug Use: none Marital Status: Housing Status: lives with family Occupation Status: retired Allergies Coded Allergies: No Known Allergies (Verified , 10/16/16) Current Inpatient Medications Current Inpatient Medications Medications (Trade) Dose Ordered Sig/Malik Route Start Time Stop Time Status Last Admin Dose Admin Ioversol (Optiray 320) 100 ml UD PRN IV 11/26/16 15:00 11/30/16 14:59 Acetaminophen (Tylenol Tab) 650 mg Q4H PRN PO 11/26/16 18:45 12/26/16 18:44 11/26/16 21:30 650 MG Ondansetron HCl (Zofran Inj) 4 mg Q6H PRN IV 11/26/16 18:45 12/26/16 18:44 Nitroglycerin (Nitrostat Tab) 0.4 mg UD PRN SL 11/26/16 18:45 12/26/16 18:44 Enoxaparin Sodium 40 mg 40 mg Q24H SQ 11/26/16 22:00 12/26/16 21:59 11/26/16 21:30 40 MG Sodium Chloride (Nss 1000ml) 1,000 ml @ 75 mls/hr [id number] IV 11/26/16 18:45 12/26/16 18:44 11/26/16 21:21 75 MLS/HR Docusate Sodium (coLACE CAP) 100 mg BID PRN PO 11/26/16 19:00 12/26/16 18:59 Metoprolol Tartrate (Lopressor Tab) 25 mg BID PO 11/26/16 21:00 12/26/16 20:59 11/27/16 08:07 25 MG Phenazopyridine HCl (Pyridium Tab) 200 mg TID PRN PO 11/26/16 19:00 12/26/16 18:59 Senna/Docusate Sodium (Senokot S Tab) 1 tab DAILY PRN PO 11/26/16 19:00 12/26/16 18:59 Tamsulosin HCl (Flomax Cap) 0.4 mg DAILY PO 11/27/16 09:00 12/27/16 08:59 11/27/16 08:07 0.4 MG Warfarin Sodium (Coumadin Tab) 2.5 mg DAILY@1600 PO 11/27/16 16:00 12/27/16 15:59 Miscellaneous Information (Order Awaiting Action) 1 ea QS N/A 11/27/16 00:00 12/27/16 00:00 Vancomycin HCl (Consult) 1 ea UD PRN N/A 11/26/16 20:45 12/26/16 20:44 Piperacillin Sod/ Tazobactam Sod 1 ea 1 ea UD PRN N/A 11/26/16 20:45 12/26/16 20:44 Piperacillin Sod/ Tazobactam Sod 3.375 gm/Dextrose 115 ml @ 28.75 mls/ hr Q8@0400,1200,2000 IV 11/27/16 04:00 12/07/16 03:59 11/27/16 04:14 28.75 MLS/HR Vancomycin HCl/ Sodium Chloride (Vancomycin Inj/ Nss 250ml) 268 ml @ 125 mls/hr Q10H IV 11/27/16 08:00 12/07/16 07:59 11/27/16 08:04 125 MLS/HR Review of Systems Constitutional: + fatigue, No chills, No fever, No sweats Abdomen: + pain (Generalized ), No diarrhea, No nausea, No vomiting Physical Exam Date Time Temp Pulse Resp B/P Pulse Ox O2 Delivery O2 Flow Rate FiO2 11/27/16 07:10 37.2 75 16 160/86 93 Room Air 11/27/16 04:00 37.1 74 163/90 95 Room Air 11/27/16 04:00 95 Room Air 11/27/16 00:00 93 Room Air 11/26/16 23:45 36.5 74 19 126/69 93 Room Air 11/26/16 20:29 36.9 82 18 146/71 95 Room Air 11/26/16 19:43 75 18 134/80 93 11/26/16 19:00 85 18 148/71 94 Room Air 11/26/16 17:28 81 22 128/65 94 Room Air 11/26/16 17:28 94 Room Air 11/26/16 16:14 75 18 112/66 94 Room Air 11/26/16 15:20 77 11/26/16 13:59 36.8 79 18 131/73 93 Room Air General Appearance: + pertinent finding (Patient lying in bed on his left side. ) Respiratory/Chest: chest non-tender, lungs clear, normal breath sounds, no respiratory distress, no accessory muscle use Cardiovascular: regular rate, rhythm Abdomen/GI: normal bowel sounds, non tender, soft Genitourinary - Male: + pertinent finding (indwelling cather on exam. ) Back: no muscle spasm, normal range of motion Extremities/Musculoskelatal: no calf tenderness Laboratory Results Last 24 Hours Test 11/26/16 15:00 11/26/16 15:10 11/26/16 17:56 11/26/16 21:00 White Blood Count 8.57 K/uL Red Blood Count 4.02 M/uL Hemoglobin 12.9 g/dL Hematocrit 38.2 % Mean Corpuscular Volume 95.0 fL Mean Corpuscular Hemoglobin 32.1 pg Mean Corpuscular Hemoglobin Concent 33.8 g/dl Platelet Count 160 K/uL Mean Platelet Volume 9.7 fL Neutrophils (%) (Auto) 60.6 % Lymphocytes (%) (Auto) 26.6 % Monocytes (%) (Auto) 9.3 % Eosinophils (%) (Auto) 2.6 % Basophils (%) (Auto) 0.4 % Neutrophils # (Auto) 5.20 K/uL Lymphocytes # (Auto) 2.28 K/uL Monocytes # (Auto) 0.80 K/uL Eosinophils # (Auto) 0.22 K/uL Basophils # (Auto) 0.03 K/uL RDW Standard Deviation 55.5 fL RDW Coefficient of Variation 15.9 % Immature Granulocyte % (Auto) 0.5 % Immature Granulocyte # (Auto) 0.04 K/uL Sodium Level 139 mmol/L Potassium Level 4.0 mmol/L Chloride Level 107 mmol/L Carbon Dioxide Level 24 mmol/L Anion Gap 8.0 mmol/L Blood Urea Nitrogen 18 mg/dl Creatinine 0.89 mg/dl Estimated GFR () 89.1 Estimated GFR (Non- 76.9 BUN/Creatinine Ratio 19.8 Random Glucose 137 mg/dl Calcium Level 8.0 mg/dl Total Bilirubin 0.6 mg/dl Aspartate Amino Transf (AST/SGOT) 48 U/L Alanine Aminotransferase (ALT/SGPT) 37 U/L Alkaline Phosphatase 89 U/L Total Creatine Kinase 26 U/L Creatine Kinase MB < 0.5 ng/ml Creatine Kinase MB Ratio Troponin I < 0.015 ng/ml Total Protein 6.7 gm/dl Albumin 2.2 gm/dl Globulin 4.5 gm/dl Albumin/Globulin Ratio 0.5 Lipase 497 U/L Procalcitonin 0.12 ng/ml Urine Color ORANGE Urine Appearance SLIGHTLY CLOUDY Urine pH Urine Specific [place] 1.022 Urine Protein Urine Glucose (UA) Urine Ketones Urine Occult Blood Urine Nitrite Urine Bilirubin Urine Urobilinogen Urine Leukocyte Esterase Urine RBC 5-10 /hpf Urine WBC 10-30 /hpf Urine Epithelial Cells 10-20 /lpf Urine Calcium Oxalate Crystals PRESENT Urine Bacteria 1+ Urine Mucus PRESENT Bedside Lactic Acid Venous 1.74 mmol/L Lactic Acid Level 1.6 mmol/L Lactate Dehydrogenase 197 U/L Test 11/27/16 06:40 White Blood Count 8.74 K/uL Red Blood Count 4.11 M/uL Hemoglobin 12.9 g/dL Hematocrit 39.3 % Mean Corpuscular Volume 95.6 fL Mean Corpuscular Hemoglobin 31.4 pg Mean Corpuscular Hemoglobin Concent 32.8 g/dl RDW Standard Deviation 55.6 fL RDW Coefficient of Variation 15.9 % Platelet Count 152 K/uL Mean Platelet Volume 9.8 fL Prothrombin Time 17.5 SECONDS Prothromb Time International Ratio 1.6 Sodium Level 141 mmol/L Potassium Level 3.9 mmol/L Chloride Level 109 mmol/L Carbon Dioxide Level 24 mmol/L Anion Gap 8.0 mmol/L Blood Urea Nitrogen 14 mg/dl Creatinine 0.84 mg/dl Est Creatinine Clear Calc Drug Dose 55.9 ml/min Estimated GFR () 91.2 Estimated GFR (Non- 78.7 BUN/Creatinine Ratio 16.7 Random Glucose 114 mg/dl Calcium Level 7.9 mg/dl CT SCAN OF THE ABDOMEN AND PELVIS WITH IV CONTRAST CLINICAL HISTORY: Generalized abdominal pain. COMPARISON STUDY: Abdominal CT dated 10/16/2016. TECHNIQUE: Following the IV administration of 116 cc of Optiray 320, CT scan of the abdomen and pelvis is performed from the lung bases to the proximal femora. Images are reviewed in the axial, sagittal, and coronal planes. IV contrast was administered without complication. Automated dose control exposure was utilized. CT DOSE: 281.96 mGy.cm FINDINGS: Lung bases: The heart is enlarged and without pericardial effusion. The coronary arteries are densely calcified. There are trace pleural effusions with bibasilar consolidation. A 10 mm nodular density is seen in the right middle lobe on image #11. Liver: The contrast-enhanced liver is normal in size and heterogeneous in attenuation. There is hypertrophy of the left lobe and nodularity of the surface contour system with early change of cirrhosis. There is nonmass-like and nonspecific enhancement identified adjacent to gallbladder fossa seen on image #141, possibly representing a flash filling hemangioma. There is no intrahepatic biliary ductal dilatation. The hepatic veins and portal veins are patent. Gallbladder: Unremarkable. Spleen: The spleen is enlarged, measuring 14 cm in length. There is a large wedge-shaped perfusion defects identified within the superior spleen seen on image #20. This measures up to 5.2 cm. There is no perisplenic hemorrhage identified. Pancreas: Moderately atrophic and grossly unremarkable. Adrenal glands: Unremarkable. Kidneys: The contrast enhanced kidneys are atrophic and without hydronephrosis. A 2 cm cyst is noted in the lower pole the left kidney. Additional subcentimeter cortical hypodensities also likely represent cysts but are too small for definitive characterization. The kidneys demonstrate heterogeneous perfusion. Abdominal vasculature: The abdominal aorta is normal in course and caliber noting advanced atherosclerotic calcification. Bowel: The small bowel and colon are normal in course and caliber. The right colon is largely decompressed. Some mucosal fat deposition is noted throughout the colon. There is no clear colonic wall thickening. The appendix is not identified and reported surgically absent. Peritoneum and retroperitoneal: There is no intraperitoneal free air or abdominal ascites. There is a 3.0 x 1.7 x 1.6 cm cm peripherally enhancing fluid collection identified in the right psoas muscle on image #229. This is seen at the level of L4. Lymphadenopathy: None. Pelvic viscera: The prostate gland is enlarged and heterogeneous, measuring 5.2 cm in transverse diameter. The bladder is decompressed around a [place] catheter. The bladder wall appears thickened and foci of intraluminal gas are identified. There is a fat and fluid containing left inguinal hernia. Skeletal structures: The skeletal structures are osteopenic. There is moderate lumbosacral spondylosis and scoliosis. No lytic or blastic lesions are seen. IMPRESSION: 1. There is a 3.0 cm peripherally enhancing fluid collection identified in the right psoas muscle typical in appearance for abscess. 2. There is a large perfusion defects seen in the superior spleen measuring up to 5.2 cm. This likely represents a splenic infarct given the absence of trauma. No perisplenic hematoma is identified. 3. The kidneys are atrophic and demonstrate heterogeneous perfusion. This could represent infarct versus pyelonephritis. Infection is favored by imaging. Correlation with clinical findings and urinalysis will be required. 4. Cirrhotic liver morphology and splenomegaly. 5. Trace pleural effusions with bibasilar consolidation. This likely represents atelectasis. Clinical correlation will be required. 6. The bladder appears markedly thick-walled and heterogeneous, and is partially decompressed around a Noyola catheter. Cystitis is not excluded. 7. Cardiomegaly. 8. There is a 10 mm nodular density at the right lung base. This likely represents atelectasis. Precautionary [address] follow-up is recommended for reassessment. 9. Additional findings as above. Findings were discussed with Dr. Andrade in the emergency department at the time of interpretation. Electronically signed by: Edvin Sidhu M.D. 11/26/2016 5:00 PM Dictated Date/Time: 11/26/2016 4:44 PM SINGLE VIEW CHEST CLINICAL HISTORY: Sepsis. FINDINGS: An AP, portable, upright chest radiograph is compared to study dated 10/18/2016. The examination is degraded by portable technique and patient rotation. The heart is mildly enlarged and there is atherosclerotic calcification of the thoracic aorta. Mild pulmonary vascular congestion is observed. There are small pleural effusions and bibasilar consolidation. No pneumothorax is seen. The skeletal structures are osteopenic. The bony thorax is grossly intact. Degenerative change is noted in the thoracic spine. IMPRESSION: 1. Cardiomegaly with evidence of mild congestive failure. 2. Small pleural effusions with bibasilar consolidation. This likely represents atelectasis. Clinical correlation will be required. Electronically signed by: Edvin Sidhu M.D. 11/26/2016 6:21 PM Dictated Date/Time: 11/26/2016 6:20 PM Assessment & Plan Splenic Infarct- Dr. Knutson in during history and physical exam. Discussed patient with Dr. Moura. Patient's pain is currently controlled. Patient's labs reviewed- Lactic Acid 1.6; WBC 8.74. Vital Signs stable. Physical Exam- Abdomen is soft, generalized abdominal pain- patient non-tender in LUQ and LLQ. No acute findings. No intervention by General Surgery indicated at this time. We will continue to follow along. Thank you for this consult. As above..pt does have splenic infarct which typical does not need operative intervention coupled with the fact that pt is such a poor surgical candidate, will continue conservative measures/pain control. will continue to follow along for now.
[2016-11-27] MEDS: SODIUM CHLORIDE 0.9% 1000ML 1,000 ML IV SCH (11:30)
--- NOTE | 2016-11-27 11:51 | Progress Note ---
Internal Med Progress Note Date of Service: November 27, 2016. Provider Documentation: SUBJECTIVE: The patient was seen and examined Communicated through the pipe cleaning machine operator No pain at rest Nonspecific pain on movement OBJECTIVE: Vital Signs-as noted below Exam: General-No distress at rest Eyes-normal ENT-normal Neck-supple Lungs-minimal decreased breath sound at the bases Heart-Regular Abdomen-Benign,mildly tender lower abdomen No guarding and or rigidity NO tenderness in Renal angles No tenderness in lower spine Extremities-Trace edema bilaterally Neuro-AA No focal sensory and or motor deficit Lab data as noted below. 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 Moura -appreciate Input Right Psoas Collection Radiologist documented as abscess Doubt any abscess as the patient is afebrile and without any leukocytosis; lactic acid 1.74 -CT abd/pelvis + 3.0 cm peripherally enhancing fluid collection identified in the right psoas muscle typical in appearance for abscess. -blood cx-pending -check procalcitonin and LDH -normal -started on Vanco and Zosyn -surgery consulted RECENT LLE DVT -unable to find ultrasound report -started Coumadin 11/17 -cont Coumadin -INR subtherapeutic at 1.6; bridge with Lovenox -monitor INR daily PAROXYSMAL AFIB /Recent NSTEMI and H/O CHF -Has had Cardiology evaluation diuring recent admission -EKG: NSR -cont metoprolol and Coumadin -INR subtherapeutic -monitor INR -1.6 0n 11/27/16 URINARY RETENTION WITH CHRONIC [facility] -cont urinary catheter -cont home meds -pt follows with urology, Dr. Rodriguez Chronic Back Pain Could be causing more pain on movement HTN -BP stable -cont metoprolol -monitor DVT PROPHYLAXIS -cont Coumadin; bridge with Lovenox for subtherapeutic INR CODE STATUS -DNR per discussion with patient and family at time of admission DISPO Awaited Vital Signs: Date Time Temp Pulse Resp B/P Pulse Ox O2 Delivery O2 Flow Rate FiO2 11/27/16 10:43 36.6 67 16 111/60 95 Room Air 11/27/16 08:00 94 Room Air 11/27/16 07:10 37.2 75 16 160/86 93 Room Air 11/27/16 04:00 37.1 74 163/90 95 Room Air 11/27/16 04:00 95 Room Air 11/27/16 00:00 93 Room Air 11/26/16 23:45 36.5 74 19 126/69 93 Room Air 11/26/16 20:29 36.9 82 18 146/71 95 Room Air 11/26/16 19:43 75 18 134/80 93 11/26/16 19:00 85 18 148/71 94 Room Air 11/26/16 17:28 81 22 128/65 94 Room Air 11/26/16 17:28 94 Room Air 11/26/16 16:14 75 18 112/66 94 Room Air 11/26/16 15:20 77 11/26/16 13:59 36.8 79 18 131/73 93 Room Air Lab Results: Results Past 24 Hours Test 11/26/16 15:00 11/26/16 15:10 11/26/16 17:56 11/26/16 21:00 Range/Units White Blood Count 8.57 4.8-10.8 K/uL Red Blood Count 4.02 4.7-6.1 M/uL Hemoglobin 12.9 14.0-18.0 g/dL Hematocrit 38.2 42-52 % Mean Corpuscular Volume 95.0 80-100 fL Mean Corpuscular Hemoglobin 32.1 25-34 pg Mean Corpuscular Hemoglobin Concent 33.8 32-36 g/dl Platelet Count 160 130-400 K/uL Mean Platelet Volume 9.7 7.4-10.4 fL Neutrophils (%) (Auto) 60.6 % Lymphocytes (%) (Auto) 26.6 % Monocytes (%) (Auto) 9.3 % Eosinophils (%) (Auto) 2.6 % Basophils (%) (Auto) 0.4 % Neutrophils # (Auto) 5.20 1.4-6.5 K/uL Lymphocytes # (Auto) 2.28 1.2-3.4 K/uL Monocytes # (Auto) 0.80 0.11-0.59 K/uL Eosinophils # (Auto) 0.22 0-0.5 K/uL Basophils # (Auto) 0.03 0-0.2 K/uL RDW Standard Deviation 55.5 36.4-46.3 fL RDW Coefficient of Variation 15.9 11.5-14.5 % Immature Granulocyte % (Auto) 0.5 % Immature Granulocyte # (Auto) 0.04 0.00-0.02 K/uL Sodium Level 139 136-145 mmol/L Potassium Level 4.0 3.5-5.1 mmol/L Chloride Level 107 98-107 mmol/L Carbon Dioxide Level 24 21-32 mmol/L Anion Gap 8.0 3-11 mmol/L Blood Urea Nitrogen 18 7-18 mg/dl Creatinine 0.89 0.60-1.40 mg/dl Estimated GFR () 89.1 Estimated GFR (Non- 76.9 BUN/Creatinine Ratio 19.8 10-20 Random Glucose 137 70-99 mg/dl Calcium Level 8.0 8.5-10.1 mg/dl Total Bilirubin 0.6 0.2-1 mg/dl Aspartate Amino Transf (AST/SGOT) 48 15-37 U/L Alanine Aminotransferase (ALT/SGPT) 37 12-78 U/L Alkaline Phosphatase 89 45-117 U/L Total Creatine Kinase 26 39-308 U/L Creatine Kinase MB < 0.5 0.5-3.6 ng/ml Creatine Kinase MB Ratio 0-3.0 Troponin I < 0.015 0-0.045 ng/ml Total Protein 6.7 6.4-8.2 gm/dl Albumin 2.2 3.4-5.0 gm/dl Globulin 4.5 2.5-4.0 gm/dl Albumin/Globulin Ratio 0.5 0.9-2 Lipase 497 73-393 U/L Procalcitonin 0.12 0-0.5 ng/ml Urine Color ORANGE Urine Appearance SLIGHTLY CLOUDY CLEAR Urine pH 4.5-7.5 Urine Specific [place] 1.022 1.000-1.030 Urine Protein NEG Urine Glucose (UA) NEG Urine Ketones NEG Urine Occult Blood NEG Urine Nitrite NEG Urine Bilirubin NEG Urine Urobilinogen NEG Urine Leukocyte Esterase NEG Urine RBC 5-10 0-4 /hpf Urine WBC 10-30 0-5 /hpf Urine Epithelial Cells 10-20 0-5 /lpf Urine Calcium Oxalate Crystals PRESENT NONE PRSENT Urine Bacteria 1+ NEG Urine Mucus PRESENT NONE PRSENT Bedside Lactic Acid Venous 1.74 0.90-1.70 mmol/L Lactic Acid Level 1.6 0.4-2.0 mmol/L Lactate Dehydrogenase 197 87-241 U/L Test 11/27/16 06:40 Range/Units White Blood Count 8.74 4.8-10.8 K/uL Red Blood Count 4.11 4.7-6.1 M/uL Hemoglobin 12.9 14.0-18.0 g/dL Hematocrit 39.3 42-52 % Mean Corpuscular Volume 95.6 80-100 fL Mean Corpuscular Hemoglobin 31.4 25-34 pg Mean Corpuscular Hemoglobin Concent 32.8 32-36 g/dl RDW Standard Deviation 55.6 36.4-46.3 fL RDW Coefficient of Variation 15.9 11.5-14.5 % Platelet Count 152 130-400 K/uL Mean Platelet Volume 9.8 7.4-10.4 fL Prothrombin Time 17.5 9.0-12.0 SECONDS Prothromb Time International Ratio 1.6 0.9-1.1 Sodium Level 141 136-145 mmol/L Potassium Level 3.9 3.5-5.1 mmol/L Chloride Level 109 98-107 mmol/L Carbon Dioxide Level 24 21-32 mmol/L Anion Gap 8.0 3-11 mmol/L Blood Urea Nitrogen 14 7-18 mg/dl Creatinine 0.84 0.60-1.40 mg/dl Est Creatinine Clear Calc Drug Dose 55.9 ml/min Estimated GFR () 91.2 Estimated GFR (Non- 78.7 BUN/Creatinine Ratio 16.7 10-20 Random Glucose 114 70-99 mg/dl Calcium Level 7.9 8.5-10.1 mg/dl Microbiology Results 11/26/16 Blood Culture, Received Pending 11/26/16 Blood Culture, Received Pending
[2016-11-27] MEDS ORDERED: TRAMADOL HCL 50 MG TAB PO PRN (13:30)
[2016-11-27] MEDS ORDERED: HYDROCODONE/ACETAMOPHEN 5/325MG TAB PO PRN (13:30)
[2016-11-27] MEDS: WARFARIN SOD 2.5 MG TAB PO SCH (17:09)
[2016-11-27] MEDS: ENOXAPARIN 40 MG/0.4 ML SYR SQ SCH (20:50)
[2016-11-28] VITALS (8 sets, daily range): BP systolic 115–157; BP diastolic 67–77; PULSE 66–82; TEMP 36.4–37.3; O2SAT 94–99
[2016-11-28] MEDS: SODIUM CHLORIDE 0.9% 1000ML 1,000 ML IV SCH ×3 (00:48→21:30)
[2016-11-28] MEDS: VANCOMYCIN INJ 1,000 MG in SODIUM CHLORIDE 0.9% 250ML 250 ML IV SCH ×2 (01:32→19:57)
[2016-11-28] MEDS ORDERED: VANCOMYCIN TROUGH ONE (03:30)
[2016-11-28] MEDS: PIPERACILL/TAZOBAC IV 3.375 GM in DEXTROSE 5% 100ML IV SCH ×3 (03:40→21:30)
[2016-11-28] MEDS: METOPROLOL TARTRATE 25 MG TAB PO SCH ×2 (07:39→19:59)
[2016-11-28] MEDS: TAMSULOSIN HCL 0.4 MG CAP PO SCH (07:39)
[2016-11-28 07:56] LABS: HEMATOCRIT 37.7 % (42-52); MEAN CORPUSCULAR HEMOGLOBIN 31.2 pg (25-34); MEAN CORPUSCULAR HGB CONC 32.9 g/dl (32-36); MEAN PLATELET VOLUME 9.9 fL (7.4-10.4); PLATELET COUNT 145 K/uL (130-400); RED BLOOD COUNT 3.97 M/uL (4.7-6.1); WHITE BLOOD COUNT 9.76 K/uL (4.8-10.8)
[2016-11-28 08:05] LABS: INR 1.6 (0.9-1.1); PROTHROMBIN TIME (PATIENT) 17.4 SECONDS (9.0-12.0)
[2016-11-28 09:11] LABS: BUN/CREATININE RATIO 14.2 (10-20); CALCIUM 7.9 mg/dl (8.5-10.1); CREATININE 0.82 mg/dl (0.60-1.40); POTASSIUM 3.6 mmol/L (3.5-5.1)
--- NOTE | 2016-11-28 09:27 | Surgery Progress Note ---
Surgery Progress Note Date of Service November 28, 2016. Subjective Patient seen and examined- Patient laying on his back in bed- appears more comfortable than yesterday. Objective Vital Signs: Date Time Temp Pulse Resp B/P Pulse Ox O2 Delivery O2 Flow Rate FiO2 11/28/16 08:38 36.4 75 20 123/71 94 Room Air 11/28/16 08:00 Room Air 11/28/16 04:03 Room Air 11/28/16 03:43 36.9 81 21 157/76 96 Room Air 11/28/16 00:36 82 115/67 11/28/16 00:02 Room Air 11/27/16 23:41 36.9 72 18 97 Room Air 11/27/16 20:00 97 Room Air 11/27/16 19:03 36.6 86 16 157/83 97 Room Air 11/27/16 16:00 95 Room Air 11/27/16 15:10 36.4 82 18 122/65 95 Room Air 11/27/16 12:00 17 11/27/16 12:00 95 Room Air 11/27/16 10:43 36.6 67 16 111/60 95 Room Air Head: normocephalic, atraumatic Abdomen: normal bowel sounds, non tender, soft Laboratory Results: Results Past 24 Hours Test 11/28/16 07:25 Range/Units White Blood Count 9.76 4.8-10.8 K/uL Red Blood Count 3.97 4.7-6.1 M/uL Hemoglobin 12.4 14.0-18.0 g/dL Hematocrit 37.7 42-52 % Mean Corpuscular Volume 95.0 80-100 fL Mean Corpuscular Hemoglobin 31.2 25-34 pg Mean Corpuscular Hemoglobin Concent 32.9 32-36 g/dl RDW Standard Deviation 54.3 36.4-46.3 fL RDW Coefficient of Variation 15.7 11.5-14.5 % Platelet Count 145 130-400 K/uL Mean Platelet Volume 9.9 7.4-10.4 fL Prothrombin Time 17.4 9.0-12.0 SECONDS Prothromb Time International Ratio 1.6 0.9-1.1 Sodium Level 141 136-145 mmol/L Potassium Level 3.6 3.5-5.1 mmol/L Chloride Level 109 98-107 mmol/L Carbon Dioxide Level 23 21-32 mmol/L Anion Gap 9.0 3-11 mmol/L Blood Urea Nitrogen 12 7-18 mg/dl Creatinine 0.82 0.60-1.40 mg/dl Est Creatinine Clear Calc Drug Dose 57.2 ml/min Estimated GFR () 92.2 Estimated GFR (Non- 79.5 BUN/Creatinine Ratio 14.2 10-20 Random Glucose 117 70-99 mg/dl Calcium Level 7.9 8.5-10.1 mg/dl Magnesium Level 2.0 1.8-2.4 mg/dl Assessment & Plan 11/28/16 Splenic Infar[address] In with Dr. Moura to examine patient- Patient lying on his back, seems to be more comfortable than yesterday. Abdomen soft, non-tender. Vital signs stable. Patient's pain is controlled. No intervention by General Surgery indicated at this time. General Surgery will sign off on this patient. If our service is needed in the future please contact us. Thank you! 11/27/16 Splenic Infarct- Dr. Knutson in during history and physical exam. Discussed patient with Dr. Moura. Patient's pain is currently controlled. Patient's labs reviewed- Lactic Acid 1.6; WBC 8.74. Vital Signs stable. Physical Exam- Abdomen is soft, generalized abdominal pain- patient non-tender in LUQ and LLQ. No acute findings. No intervention by General Surgery indicated at this time. We will continue to follow along. Thank you for this consult. As above..pt does have splenic infarct which typical does not need operative intervention coupled with the fact that pt is such a poor surgical candidate, will continue conservative measures/pain control. will continue to follow along for now.
--- NOTE | 2016-11-28 11:02 | Progress Note ---
Internal Med Progress Note Date of Service: November 28, 2016. Provider Documentation: SUBJECTIVE: The patient was seen and examined Communicated through the stem teacher Nonspecific pain on movement -resolved Denies any pain today OBJECTIVE: Vital Signs-as noted below Exam: General-No distress at rest Eyes-normal ENT-normal Neck-supple Lungs-minimal decreased breath sound at the bases Heart-Regular Abdomen-Benign,mildly tender lower abdomen No guarding and or rigidity NO tenderness in Renal angles No tenderness in lower spine Extremities-Trace edema bilaterally Neuro-AA No focal sensory and or motor deficit Lab data as noted below. 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 Moura -appreciate Input -Pain resolved Right Psoas Collection/Splenic Infarct Radiologist documented as abscess Doubt any abscess as the patient is afebrile and without any leukocytosis; lactic acid 1.74 -CT abd/pelvis + 3.0 cm peripherally enhancing fluid collection identified in the right psoas muscle typical in appearance for abscess. -blood cx-One bottle grew Staph-Likely contaminant -check procalcitonin and LDH -normal -started on Vanco and Zosyn -surgery consulted -appreciate input RECENT LLE DVT -unable to find ultrasound report -started Coumadin 11/17 -cont Coumadin -INR subtherapeutic at 1.6; bridge with Lovenox -monitor INR daily-1.6 today 11/28/16 PAROXYSMAL AFIB /Recent NSTEMI and H/O CHF -Has had Cardiology evaluation diuring recent admission -EKG: NSR -cont metoprolol and Coumadin -INR subtherapeutic -monitor INR -1.6 0n 11/28/16 URINARY RETENTION WITH CHRONIC NOYOLA -cont urinary catheter -cont home meds -pt follows with urology, Dr. Rodriguez -tried without Noyola -has incontinence -will need Noyola to be reinserted before discharge Chronic Back Pain Could be causing more pain on movement HTN -BP stable -cont metoprolol -monitor DVT PROPHYLAXIS -cont Coumadin; bridge with Lovenox for subtherapeutic INR CODE STATUS -DNR per discussion with patient and family at time of admission DISPO Likely discharge today with Home help Vital Signs: Date Time Temp Pulse Resp B/P Pulse Ox O2 Delivery O2 Flow Rate FiO2 11/28/16 08:38 36.4 75 20 123/71 94 Room Air 11/28/16 08:00 Room Air 11/28/16 04:03 Room Air 11/28/16 03:43 36.9 81 21 157/76 96 Room Air 11/28/16 00:36 82 115/67 11/28/16 00:02 Room Air 11/27/16 23:41 36.9 72 18 97 Room Air 11/27/16 20:00 97 Room Air 11/27/16 19:03 36.6 86 16 157/83 97 Room Air 11/27/16 16:00 95 Room Air 11/27/16 15:10 36.4 82 18 122/65 95 Room Air 11/27/16 12:00 17 11/27/16 12:00 95 Room Air Lab Results: Results Past 24 Hours Test 11/28/16 07:25 Range/Units White Blood Count 9.76 4.8-10.8 K/uL Red Blood Count 3.97 4.7-6.1 M/uL Hemoglobin 12.4 14.0-18.0 g/dL Hematocrit 37.7 42-52 % Mean Corpuscular Volume 95.0 80-100 fL Mean Corpuscular Hemoglobin 31.2 25-34 pg Mean Corpuscular Hemoglobin Concent 32.9 32-36 g/dl RDW Standard Deviation 54.3 36.4-46.3 fL RDW Coefficient of Variation 15.7 11.5-14.5 % Platelet Count 145 130-400 K/uL Mean Platelet Volume 9.9 7.4-10.4 fL Prothrombin Time 17.4 9.0-12.0 SECONDS Prothromb Time International Ratio 1.6 0.9-1.1 Sodium Level 141 136-145 mmol/L Potassium Level 3.6 3.5-5.1 mmol/L Chloride Level 109 98-107 mmol/L Carbon Dioxide Level 23 21-32 mmol/L Anion Gap 9.0 3-11 mmol/L Blood Urea Nitrogen 12 7-18 mg/dl Creatinine 0.82 0.60-1.40 mg/dl Est Creatinine Clear Calc Drug Dose 57.2 ml/min Estimated GFR () 92.2 Estimated GFR (Non- 79.5 BUN/Creatinine Ratio 14.2 10-20 Random Glucose 117 70-99 mg/dl Calcium Level 7.9 8.5-10.1 mg/dl Magnesium Level 2.0 1.8-2.4 mg/dl
[2016-11-28] MEDS: WARFARIN SOD 2.5 MG TAB PO SCH (16:31)
[2016-11-28] MEDS ORDERED: NURSING VERBAL MED ORDER ONE ×2 (18:45)
[2016-11-28] MEDS: ENOXAPARIN 40 MG/0.4 ML SYR SQ SCH (21:30)
[2016-11-28] MEDS: AVODART: ORDER AWAITING ACTION SCH ×2 (21:57→21:58)
[2016-11-29 00:22] VITALS: BP 161/82; PULSE 80; TEMP 37; O2SAT 96
[2016-11-29] MEDS: PIPERACILL/TAZOBAC IV 3.375 GM in DEXTROSE 5% 100ML IV SCH (03:37)
[2016-11-29 06:05] LABS: INR 1.9 (0.9-1.1)
[2016-11-29 07:53] VITALS: BP 134/76; PULSE 82; TEMP 36.4; O2SAT 96
[2016-11-29] MEDS: AVODART: ORDER AWAITING ACTION SCH (08:00)
[2016-11-29] MEDS: TAMSULOSIN HCL 0.4 MG CAP PO SCH (08:18)
[2016-11-29] MEDS: METOPROLOL TARTRATE 25 MG TAB PO SCH (08:19)
--- NOTE | 2016-11-29 11:42 | Progress Note ---
Internal Med Progress Note Date of Service: November 29, 2016. Provider Documentation: SUBJECTIVE: The patient was seen and examined in presence of the Daughter Communicated through the mail distribution clerk Happy to be discharged home today Still has some pain but easily tolerable OBJECTIVE: Vital Signs-as noted below Exam: General-No distress at rest Eyes-normal ENT-normal Neck-supple Lungs-minimal decreased breath sound at the bases Heart-Regular Abdomen-Benign,mildly tender lower abdomen No guarding and or rigidity NO tenderness in Renal angles No tenderness in lower spine Extremities-Trace edema bilaterally Neuro-AA No focal sensory and or motor deficit Lab data as noted below. 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 There is a 3.0 cm peripherally enhancing fluid collection identified in the right psoas muscle typical in appearance for abscess. 2. There is a large perfusion defects seen in the superior spleen measuring up to 5.2 cm. This likely represents a splenic infarct given the absence of trauma. No perisplenic hematoma is identified. -started on gentle IVF -pt is already on anticoagulation -Surgery consulted :Dr. Moura -appreciate Input.No surgery indicated -Pain resolved Right Psoas Collection/Splenic Infarct Radiologist documented as abscess Doubt any abscess as the patient is afebrile and without any leukocytosis; lactic acid 1.74 -CT abd/pelvis + 3.0 cm peripherally enhancing fluid collection identified in the right psoas muscle typical in appearance for abscess. -blood cx-One bottle grew Staph-Likely contaminant -check procalcitonin and LDH -normal -started on Vanco and Zosyn -surgery consulted -appreciate input -will give oral Clindamycin for 4 more days RECENT LLE DVT -unable to find ultrasound report -started Coumadin 11/17 -cont Coumadin -INR subtherapeutic at 1.6; bridge with Lovenox -monitor INR daily-1.9 today 11/29/16 PAROXYSMAL AFIB /Recent NSTEMI and H/O CHF -Has had Cardiology evaluation diuring recent admission -EKG: NSR -cont metoprolol and Coumadin -INR subtherapeutic -monitor INR -1.9 0n 11/29/16 URINARY RETENTION WITH CHRONIC NOYOLA -cont urinary catheter -cont home meds -pt follows with urology, Dr. Rodriguez -tried without Noyola -has incontinence -will need Noyola to be reinserted before discharge -Noyola reintroduced Chronic Back Pain Could be causing more pain on movement One Opioid at night and Ultram during the day As needed HTN -BP stable -cont metoprolol -monitor DVT PROPHYLAXIS -cont Coumadin; bridge with Lovenox for subtherapeutic INR CODE STATUS -DNR per discussion with patient and family at time of admission DISPO Likely discharge today with Home help Discussed with the Daughter Vital Signs: Date Time Temp Pulse Resp B/P Pulse Ox O2 Delivery O2 Flow Rate FiO2 11/29/16 08:00 Room Air 11/29/16 07:53 36.4 82 20 134/76 96 11/29/16 00:22 37.0 80 20 161/82 96 Room Air 11/29/16 00:00 Room Air 11/28/16 20:23 36.9 72 18 127/71 96 Room Air 11/28/16 20:05 Room Air 11/28/16 19:31 36.7 80 16 99 11/28/16 16:00 99 Room Air 11/28/16 15:13 36.7 80 16 153/77 99 Room Air 11/28/16 12:17 37.3 66 18 118/74 96 Room Air 11/28/16 12:00 Room Air Lab Results: Results Past 24 Hours Test 11/29/16 05:15 Range/Units Prothrombin Time 21.0 9.0-12.0 SECONDS Prothromb Time International Ratio 1.9 0.9-1.1
[2016-11-29] MEDS ORDERED: CLIN300C2 PO (11:48)
[2016-11-29] MEDS ORDERED: LCTX PO (11:48)
[2016-11-29] MEDS ORDERED: ULT50X PO (11:48)
[2016-11-29] MEDS ORDERED: HYDR-5688 PO (11:48)
--- NOTE | 2016-11-29 11:52 | Discharge Instructions ---
Discharge Instructions Date of Service November 29, 2016. Admission Reason for Admission: Abdominal Pain Discharge Discharge Diagnosis / Problem: Abdominal Pain,Right Psoas Collectio(doubt Abscess),splenic infarct Discharge Goals Goal(s): Prevent Disease Progression Activity Recommendations Activity Limitations: resume your previous activity (Take precaution to avoid fall) . Instructions / Follow-Up Instructions / Follow-Up Dr Toribio on 12/03/16 at 1:45 PM.Please keep appointment with the Coagulation clinic Current Hospital Diet Patient's current hospital diet: Regular Diet Discharge Diet Recommended Diet: Regular Diet Fluid Restriction: 1500 ml (6 cups) Pending Studies Studies pending at discharge: no Laboratory Results Hemoglobin A1c Test 10/17/16 05:36 Range/Units Estimated Average Glucose 123 mg/dl Hemoglobin A1c 5.9 H 4.5-5.6 % Lipid Panel Test 10/17/16 05:36 Range/Units Triglycerides Level 157 H 0-150 mg/dl Cholesterol Level 69 0-200 mg/dl HDL Cholesterol 8 mg/dl Cholesterol/HDL Ratio 8.6 LDL Cholesterol, Calculated 30 mg/dl Medical Emergencies . Who to Call and When: Medical Emergencies: If at any time you feel your situation is an emergency, please call 911 immediately. . Non-Emergent Contact Non-Emergency issues call your: Primary Care Provider . . "Provider Documentation" section prepared by Juan Knutson. . VTE Core Measure Inpt VTE Proph given/why not?: Enoxaparin (Lovenox)SQ, Warfarin (Coumadin)
[2016-11-29 12:14] VITALS: BP 134/76; PULSE 82; TEMP 36.4; O2SAT 96
[2016-11-29] MEDS ORDERED: VANCOMYCIN TROUGH SCH (13:30)
[2016-11-29] MEDS ORDERED: CLINDAMYCIN HCL 150 MG CAP PO SCH (14:00)
--- NOTE | 2016-11-29 16:07 | Discharge Summary ---
Discharge Summary Date of Service November 29, 2016. Discharge Summary Admission Date: November 26, 2016 at 18:37 Discharge Date: November 29, 2016 Discharge Disposition: Home with services Principal Diagnosis: Abdominal Pain,Right Psoas Collection(doubt Abscess),splenic infarct Secondary Diagnoses/Problems: Please see H&P and Hospital Progress note Consultations: Surgery Medication Reconciliation New Medications: Clindamycin Hcl (Cleocin) 300 Mg Cap 300 MG PO TID for 4 Days, #12 CAP Lactobacillus Acidophilus (Lactinex) Tab 2 TAB PO BID, #20 TAB Hydrocodone/Acetaminophen 5MG/325MG ([place] 5MG/325MG) Tab 1 TAB PO HS PRN for Pain for 10 Days, #10 TAB PRN PAIN Tramadol HCl (Tramadol HCl) 50 Mg Tab 50 MG PO Q6H PRN for Pain for 10 Days, #30 TAB Continued Medications: Acetaminophen (Tylenol) 500 Mg Tab 500 MG PO Q4 PRN for Pain or Fever, TAB Docusate Sodium (Colace) 100 Mg Cap 1 CAP PO BID PRN for Constipation for 15 Days, #30 CAP Dutasteride (Avodart) 0.5 Mg Cap 0.5 MG PO DAILY, CAP Metoprolol Tartrate (Lopressor) (Lopressor) 25 Mg Tab 25 MG PO BID, TAB Nitroglycerin (Nitrostat) 0.4 Mg Tab 0.4 MG UT PRN, BTL Sennosides-Docusate Sodium (Senna-S) 1 Tab Tab 1 TAB PO DAILY PRN for Constipation Tamsulosin Hcl (Flomax) 0.4 Mg Cap 0.4 MG PO DAILY, CAP Warfarin Sod (Coumadin) 2.5 Mg Tab 2.5 MG PO ON HOLD, TAB Discontinued Medications: Phenazopyridine HCl (Pyridium) 200 Mg Tab 200 MG PO TID PRN for Bladder pain, #6 TAB Admission Information HPI (per Admitting provider): This is an 86 y/o male with PMHx of urinary retention with chronic indwelling murray, recent history of DVT, PAF on Coumadin and other problems as outlined below who presents to the ED c/o abdominal pain x 2 days. Pt was recently admitted to [facility] from 10/16-10/25 with severe sepsis 2* pneumonia, NSTEMI, Afib with RVR and acute on chronic heart failure. Pt was discharged to [facility]. While at [facility] patient was placed on Coumadin for a DVT. He was discharged 11/17 and is currently living at home with his . History is obtained from daughters at bedside as patient only speaks Surinamese. Per daughter , patient has been complaining of abdominal pain for 2 days. He describes the pain as severe LLQ squeezing with intermittent spasms. His sxs are assoc with generalized weakness and loss of appetite. Pt has been having >6 soft BMs daily. Pt has a chronic indwelling murray catheter for urinary retention. He recently completed a course of Bactrim. Pt denies fever/chills, diaphoresis, chest pain, SOB, N/V, hematochezia, melena, LE edema ,calf pain, lightheadedness /dizziness. In the ED, vitals are stable. Pt is afebrile with no leukocytosis. LFTs WNL. Lipase mildly elevated. 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 Pt is stable and will be admitted for further evaluation and treatment. Past Medical/Surgical History Medical Problems: (1) BPH (benign prostatic hyperplasia) Status: Chronic (2) Chronic back pain Status: Chronic (3) Diastolic CHF Status: Chronic (4) PAF (paroxysmal atrial fibrillation) Status: Chronic (5) Urinary retention Status: Chronic Surgical Problems: (1) No pertinent past surgical history Status: Chronic Family History Patient reports no known family medical history. Social History Smoking Status: Never Smoker Alcohol Use: none Drug Use: none Marital Status: Housing status: lives with family Occupational Status: retired Multi-Drug Resistant Organisms History of MDRO: No Allergies Coded Allergies: No Known Allergies (Verified , 10/16/16) Home Medications Scheduled Dutasteride (Avodart), 0.5 MG PO DAILY Metoprolol Tartrate (Lopressor) (Lopressor), 25 MG PO BID Nitroglycerin (Nitrostat), 0.4 MG UT PRN Tamsulosin Hcl (Flomax), 0.4 MG PO DAILY Warfarin Sod (Coumadin), 2.5 MG PO ON HOLD Scheduled PRN Acetaminophen (Tylenol), 500 MG PO Q4 PRN for Pain or Fever Docusate Sodium (Colace), 1 CAP PO BID PRN for Constipation Phenazopyridine HCl (Pyridium), 200 MG PO TID PRN for Bladder pain Sennosides-Docusate Sodium (Senna-S), 1 TAB PO DAILY PRN for Constipation Review of Systems Constitutional: + fatigue, + weakness, No chills, No fever, No sweats Eyes: No worsening of vision ENT: No hearing loss Respiratory: No cough, No shortness of breath Cardiovascular: No chest pain, No claudication, No edema Abdomen: + pain, No GI bleeding, No constipation, No diarrhea, No nausea, No vomiting Musculoskeletal: No calf pain, No swelling Genitourinary - Male: + problem reported (chronic murray catheter), No dysuria Neurologic: + weakness Psychiatric: No depression symptoms Endocrine: + fatigue Hematologic / Lymphatic: No abnormal bleeding/bruising Integumentary: No new/changing skin lesions Physical Ex - H&P Physical Exam Vital Signs Date Time Temp Pulse Resp B/P Pulse Ox O2 Delivery O2 Flow Rate FiO2 11/26/16 17:28 81 22 128/65 94 Room Air 11/26/16 17:28 94 Room Air 11/26/16 16:14 75 18 112/66 94 Room Air 11/26/16 15:20 77 11/26/16 13:59 36.8 79 18 131/73 93 Room Air General Appearance: WD/WN, no apparent distress, + pertinent finding (Pt is laying in bed with daughters at bedside ) Head: normocephalic, atraumatic Eyes: normal inspection ENT: hearing grossly normal Neck: supple Respiratory/Chest: chest non-tender, lungs clear, normal breath sounds, no respiratory distress Cardiovascular: regular rate, rhythm, no edema, no murmur Abdomen/GI: normal bowel sounds, non tender, soft Genitourinary - Male: + pertinent finding (indwelling murray draining tea- colored urine) Back: normal inspection Extremities/Musculoskelatal: normal inspection, no calf tenderness, no pedal edema Neurologic/Psych: alert, normal mood/affect, oriented x 3 Skin: + pallor Diagnostics - H&P Diagnostics Laboratory Results Results Past 24 Hours Test 11/26/16 00:00 11/26/16 15:00 11/26/16 15:10 11/26/16 17:56 Range/Units Prothrombin Time 17.4 9.0-12.0 SECONDS Prothromb Time International Ratio 1.6 0.9-1.1 Activated Partial Thromboplast Time 32.1 21.0-31.0 SECONDS Partial Thromboplastin Ratio 1.2 White Blood Count 8.57 4.8-10.8 K/uL Red Blood Count 4.02 4.7-6.1 M/uL Hemoglobin 12.9 14.0-18.0 g/dL Hematocrit 38.2 42-52 % Mean Corpuscular Volume 95.0 80-100 fL Mean Corpuscular Hemoglobin 32.1 25-34 pg Mean Corpuscular Hemoglobin Concent 33.8 32-36 g/dl Platelet Count 160 130-400 K/uL Mean Platelet Volume 9.7 7.4-10.4 fL Neutrophils (%) (Auto) 60.6 % Lymphocytes (%) (Auto) 26.6 % Monocytes (%) (Auto) 9.3 % Eosinophils (%) (Auto) 2.6 % Basophils (%) (Auto) 0.4 % Neutrophils # (Auto) 5.20 1.4-6.5 K/uL Lymphocytes # (Auto) 2.28 1.2-3.4 K/uL Monocytes # (Auto) 0.80 0.11-0.59 K/uL Eosinophils # (Auto) 0.22 0-0.5 K/uL Basophils # (Auto) 0.03 0-0.2 K/uL RDW Standard Deviation 55.5 36.4-46.3 fL RDW Coefficient of Variation 15.9 11.5-14.5 % Immature Granulocyte % (Auto) 0.5 % Immature Granulocyte # (Auto) 0.04 0.00-0.02 K/uL Sodium Level 139 136-145 mmol/L Potassium Level 4.0 3.5-5.1 mmol/L Chloride Level 107 98-107 mmol/L Carbon Dioxide Level 24 21-32 mmol/L Anion Gap 8.0 3-11 mmol/L Blood Urea Nitrogen 18 7-18 mg/dl Creatinine 0.89 0.60-1.40 mg/dl Estimated GFR () 89.1 Estimated GFR (Non- 76.9 BUN/Creatinine Ratio 19.8 10-20 Random Glucose 137 70-99 mg/dl Calcium Level 8.0 8.5-10.1 mg/dl Total Bilirubin 0.6 0.2-1 mg/dl Aspartate Amino Transf (AST/SGOT) 48 15-37 U/L Alanine Aminotransferase (ALT/SGPT) 37 12-78 U/L Alkaline Phosphatase 89 45-117 U/L Total Creatine Kinase 26 39-308 U/L Creatine Kinase MB < 0.5 0.5-3.6 ng/ml Creatine Kinase MB Ratio 0-3.0 Troponin I < 0.015 0-0.045 ng/ml Total Protein 6.7 6.4-8.2 gm/dl Albumin 2.2 3.4-5.0 gm/dl Globulin 4.5 2.5-4.0 gm/dl Albumin/Globulin Ratio 0.5 0.9-2 Lipase 497 73-393 U/L Urine Color ORANGE Urine Appearance SLIGHTLY CLOUDY CLEAR Urine pH 4.5-7.5 Urine Specific [place] 1.022 1.000-1.030 Urine Protein NEG Urine Glucose (UA) NEG Urine Ketones NEG Urine Occult Blood NEG Urine Nitrite NEG Urine Bilirubin NEG Urine Urobilinogen NEG Urine Leukocyte Esterase NEG Urine RBC 5-10 0-4 /hpf Urine WBC 10-30 0-5 /hpf Urine Epithelial Cells 10-20 0-5 /lpf Urine Calcium Oxalate Crystals PRESENT NONE PRSENT Urine Bacteria 1+ NEG Urine Mucus PRESENT NONE PRSENT Bedside Lactic Acid Venous 1.74 0.90-1.70 mmol/L Microbiology Results 11/26/16 Blood Culture, Received Pending 11/26/16 Blood Culture, Received Pending Diagnostic Radiology CXR IMPRESSION: 1. Cardiomegaly with evidence of mild congestive failure. 2. Small pleural effusions with bibasilar consolidation. This likely represents atelectasis. Clinical correlation will be required. CT ABD/PELVIS IMPRESSION: 1. There is a 3.0 cm peripherally enhancing fluid collection identified in the right psoas muscle typical in appearance for abscess. 2. There is a large perfusion defects seen in the superior spleen measuring up to 5.2 cm. This likely represents a splenic infarct given the absence of trauma. No perisplenic hematoma is identified. 3. The kidneys are atrophic and demonstrate heterogeneous perfusion. This could represent infarct versus pyelonephritis. Infection is favored by imaging. Correlation with clinical findings and urinalysis will be required. 4. Cirrhotic liver morphology and splenomegaly. 5. Trace pleural effusions with bibasilar consolidation. This likely represents atelectasis. Clinical correlation will be required. 6. The bladder appears markedly thick-walled and heterogeneous, and is partially decompressed around a Murray catheter. Cystitis is not excluded. 7. Cardiomegaly. 8. There is a 10 mm nodular density at the right lung base. This likely represents atelectasis. Precautionary [address] follow-up is recommended for reassessment. 9. Additional findings as above. EKG EKG: NSR with sinus arrhythmia and nonspec T wave abnormality in lateral leads; sinus rhythm has replaced Afib and nonspec T wave abnormality has replaced T wave inversion in lateral leads Impression - H&P Impression Assessment and Plan ABDOMINAL PAIN; UNCLEAR CAUSE pt presented c/o LLQ abdominal pain x 2 days assoc with weakness and loss of appetite -admit to telemetry -pt is afebrile with no leukocytosis; abdominal exam is benign -CT abd/pelvis + splenic infarct (see above for full report) -start gentle IVF -pt is already on anticoagulation -consult surgery, Dr. Moura -monitor R PSOAS ABSCESS -afebrile no leuks; lactic acid 1.74 -CT abd/pelvis + 3.0 cm peripherally enhancing fluid collection identified in the right psoas muscle typical in appearance for abscess. -blood cx-pending -check procalcitonin and LDH -start broad spectrum abx -surgery consulted RECENT LLE DVT -unable to find ultrasound report -started Coumadin 11/17 -cont Coumadin -INR subtherapeutic at 1.6; bridge with Lovenox -monitor INR daily PAROXYSMAL AFIB -EKG: NSR -cont metoprolol and Coumadin -INR subtherapeutic -monitor INR daily URINARY RETENTION WITH CHRONIC MURRAY -cont urinary catheter -cont home meds -pt follows with urology, Dr. Rodriguez HTN -BP stable -cont metoprolol -monitor DVT PROPHYLAXIS -cont Coumadin; bridge with Lovenox for subtherapeutic INR CODE STATUS -DNR per discussion with patient and family at time of admission DISPO Pt seen in collaboration with Dr. Hernandez. Please see his addendum for further details. Thanks! -Of note: patient will be seen by Dr. Knutson starting tomorrow AM. Pt was seen and examined. Agreed with Nona RICHARD exam, assessment and plan.86 y /o male with PMHx of urinary retention with chronic indwelling murray, recent history of DVT, PAF on Coumadin presents to the ED c/o abdominal pain x 2 days. Pt was recently admitted to [facility] from 10/16-10/25 with severe sepsis 2* pneumonia , NSTEMI. He was discharged to [facility]. As per Daughter this morning pt was very drowsy and was not able to keep his eyes open. He was complaint of severe Left sided abdominal pain, 10/10 and non radiated. Currently patient denies any abdominal pain. CT abdominal done shown possible splenic infarct and psoas muscle typical in appearance for abscess. Denies any fever, chest pain, palpitation and SOB. General- No acute distress, speak Sur[place]amese Head- atraumatic Eyes- PERRL, EOMI ENT- oropharynx clear Neck- supple, no JVD Lungs- clear to auscultation Heart- regular rhythm Abdomen- normal bowel sounds, soft, nontender Extremities-no calf tenderness A/P ABDOMINAL PAIN Unknown etiology - afebrile with no leukocytosis; Currently no abdominal pain on exam -CT abd/pelvis showed splenic infarct -start gentle IVF -Check LDH -Continue anticoagulant -consult surgery, Dr. Moura -monitor R PSOAS ABSCESS -afebrile no leuks; lactic acid wnl -CT abd/pelvis + 3.0 cm peripherally enhancing fluid collection identified in the right psoas muscle typical in appearance for abscess. Discussed CT with radiologist Dr. Sidhu that confirmed the finding is an abscess -blood cx-pending -check procalcitonin -start broad spectrum abx -surgery consulted Continue monitor him. RIGHT LUNG NODULES CT showed a 10 mm nodular density at the right lung base Need follow up CT in 3 months for reassessment. Lab, imaging, EKG reviewed Please refer to Nona RICHARD documentation for other problems Samantha Hernandez MD VTE Prophylaxis VTE Risk Assessment Done? Y/N: Yes Risk Level: High Physical Exam (per Admitting): General Appearance: WD/WN, no apparent distress, + pertinent finding (Pt is laying in bed with daughters at bedside ) Head: normocephalic, atraumatic Eyes: normal inspection ENT: hearing grossly normal Neck: supple Respiratory/Chest: chest non-tender, lungs clear, normal breath sounds, no respiratory distress Cardiovascular: regular rate, rhythm, no edema, no murmur Abdomen/GI: normal bowel sounds, non tender, soft Genitourinary - Male: + pertinent finding (indwelling murray draining tea- colored urine) Back: normal inspection Extremities/Musculoskelatal: normal inspection, no calf tenderness, no pedal edema Neurologic/Psych: alert, normal mood/affect, oriented x 3 Skin: + pallor Hospital Course ABDOMINAL PAIN-resolved Lower Abdomen in general Pt presented c/o LLQ abdominal pain x 2 days assoc with weakness and loss of appetite Afebrile with no leukocytosis; abdominal exam is benign -CT abd/pelvis + splenic infarct and Psoas Abscess::1. There is a 3.0 cm peripherally enhancing fluid collection identified in the right psoas muscle typical in appearance for abscess. 2. There is a large perfusion defects seen in the superior spleen measuring up to 5.2 cm. This likely represents a splenic infarct given the absence of trauma. No perisplenic hematoma is identified. -started on gentle IVF -pt is already on anticoagulation -Surgery consulted :Dr. Moura -appreciate Input.No surgery indicated -Pain resolved Right Psoas Collection/Splenic Infarct Radiologist documented as abscess Doubt any abscess as the patient is afebrile and without any leukocytosis; lactic acid 1.74 -CT abd/pelvis + 3.0 cm peripherally enhancing fluid collection identified in the right psoas muscle typical in appearance for abscess. -blood cx-One bottle grew Staph-Likely contaminant -check procalcitonin and LDH -normal -started on Vanco and Zosyn -surgery consulted -appreciate input -will give oral Clindamycin for 4 more days RECENT LLE DVT -unable to find ultrasound report -started Coumadin 11/17 -cont Coumadin -INR subtherapeutic at 1.6; bridge with Lovenox -monitor INR daily-1.9 today 11/29/16 PAROXYSMAL AFIB /Recent NSTEMI and H/O CHF -Has had Cardiology evaluation diuring recent admission -EKG: NSR -cont metoprolol and Coumadin -INR subtherapeutic -monitor INR -1.9 0n 11/29/16 URINARY RETENTION WITH CHRONIC MURRAY -cont urinary catheter -cont home meds -pt follows with urology, Dr. Rodriguez -tried without Murray -has incontinence -will need Murray to be reinserted before discharge -Murray reintroduced Chronic Back Pain Could be causing more pain on movement One Opioid at night and Ultram during the day As needed HTN -BP stable -cont metoprolol -monitor DVT PROPHYLAXIS -cont Coumadin; bridge with Lovenox for subtherapeutic INR CODE STATUS -DNR per discussion with patient and family at time of admission DISPO Likely discharge today with Home help Discussed with the Daughter Total time spent on discharge = 40 minutes This includes examination of the patient, discharge planning, medication reconciliation, and communication with other providers. Discharge Instructions Date of Service November 29, 2016. Admission Reason for Admission: Abdominal Pain Discharge Discharge Diagnosis / Problem: Abdominal Pain,Right Psoas Collectio(doubt Abscess),splenic infarct Discharge Goals Goal(s): Prevent Disease Progression Activity Recommendations Activity Limitations: resume your previous activity (Take precaution to avoid fall) . Instructions / Follow-Up Instructions / Follow-Up Dr Toribio on 12/03/16 at 1:45 PM.Please keep appointment with the Coagulation clinic Current Hospital Diet Patient's current hospital diet: Regular Diet Discharge Diet Recommended Diet: Regular Diet Fluid Restriction: 1500 ml (6 cups) Pending Studies Studies pending at discharge: no Laboratory Results Hemoglobin A1c Test 10/17/16 05:36 Range/Units Estimated Average Glucose 123 mg/dl Hemoglobin A1c 5.9 H 4.5-5.6 % Lipid Panel Test 10/17/16 05:36 Range/Units Triglycerides Level 157 H 0-150 mg/dl Cholesterol Level 69 0-200 mg/dl HDL Cholesterol 8 mg/dl Cholesterol/HDL Ratio 8.6 LDL Cholesterol, Calculated 30 mg/dl Medical Emergencies . Who to Call and When: Medical Emergencies: If at any time you feel your situation is an emergency, please call 911 immediately. . Non-Emergent Contact Non-Emergency issues call your: Primary Care Provider . . "Provider Documentation" section prepared by Juan Knutson. . VTE Core Measure Inpt VTE Proph given/why not?: Enoxaparin (Lovenox)SQ, Warfarin (Coumadin) <Electronically signed by Juan Knutson M.D.> Signed: 11/29/16 1152 Additional Copies To Tamara Toribio D.O.
[2016-11-29] MEDS ORDERED: LACTOBACILLUS ACIDOPHILUS (FLORANEX) TAB PO SCH (17:00)
[2016-12-31] MEDS ORDERED: SENN8.6T7 PO (13:08)
[2016-12-31] MEDS ORDERED: ASPEC81 PO (13:08)
[2016-12-31] MEDS ORDERED: MRLP17X PO (13:08)
[2016-12-31] MEDS ORDERED: METO50TA17 PO (13:08)
[2017-01-01] MEDS ORDERED: FURO-85 PO (10:24)
[2017-01-01] MEDS ORDERED: POTA8CAP6 PO (10:24)
[2017-01-01] MEDS ORDERED: HYDR-5688 PO (10:39)
[2017-01-27] MEDS ORDERED: NTRGSL/4 UT (15:43)
[2017-01-27] MEDS ORDERED: ACET-1256 PO (15:43)
[2017-01-27] MEDS ORDERED: DUTA0.5C PO (15:46)
[2017-01-27] MEDS ORDERED: TAMS0.4C38 PO (15:46)
[2017-04-15] MEDS ORDERED: CIPR-255 PO (12:53)
[2017-04-15] MEDS ORDERED: LCTX PO (12:53)
[2017-04-15] MEDS ORDERED: VANC5CAP PO (12:53)
== END 2016-11-29 12:30 | disposition home health service (06) | DRG 814 ==
LOC: ENRESERVDT → ENRESERVTM → EDBD 13:52 → C.EDC 13:54 → C.2T 18:37 → EDBEDREQ 18:47 → C.4E 11-28 19:52
PROVIDERS: ADMIT Internal Medicine; ATTEND Internal Medicine
DX: D73.5 Infarction of spleen (principal); K68.12 Psoas muscle abscess; I82.402 Acute embolism and thrombosis of unspecified deep veins of left lower extremity; I50.32 Chronic diastolic (congestive) heart failure; R79.1 Abnormal coagulation profile; I48.0 Paroxysmal atrial fibrillation; I11.0 Hypertensive heart disease with heart failure; R33.9 Retention of urine, unspecified; R32 Unspecified urinary incontinence; R91.1 Solitary pulmonary nodule; G89.29 Other chronic pain; M54.9 Dorsalgia, unspecified; I25.2 Old myocardial infarction; Z66 Do not resuscitate; Z96.0 Presence of urogenital implants; Z79.01 Long term (current) use of anticoagulants; Z79.899 Other long term (current) drug therapy

== ENCOUNTER 2016-12-20 19:49 | Inpatient (IN) | payer OTHER ==
[~2016-12-20] VITALS: Ht 167.6 cm; Wt 65.0 kg
[~2016-12-20 19:49] MED LIST changes: +CMD/25 PO; -DLCS PR; +DOCU-94 PO; +HYDR-5688 PO; +LCTX PO; -LPR25 PO; +METO25TA56 PO; -NTRO1 EXT; +SENN-104 PO; -TYL325X PO; +ULT50X PO
[2016-12-20] MEDS ORDERED: SODIUM CHLORIDE 0.9% 1000ML 1,000 ML IV STA (20:51)
[2016-12-20] MEDS ORDERED: ONDANSETRON INJ 2 MG/ML 2 ML VIAL IV STA (20:51)
[2016-12-20] MEDS ORDERED: SODIUM CHLORIDE 0.9% 1000ML 500 ML IV STA (20:51)
[2016-12-20] MEDS ORDERED: MoRPHine SULFATE 4 MG/ML 1 ML CARP\\VIAL IV PRN (21:00)
[2016-12-20] MEDS ORDERED: OPTIRAY 320 IV PRN (21:00)
[2016-12-20 21:26] LABS: URINE APPEARANCE CLOUDY (CLEAR); URINE BILIRUBIN NEG (NEG); URINE COLOR YELLOW; URINE NITRITE POS (NEG); UROBILINOGEN NEG (NEG); ZZURINE CULT IF INDIC CATH YES
--- NOTE | 2016-12-20 21:32 | DIAGNOSTIC IMAGING REPORT ---
CHEST ONE VIEW PORTABLE CLINICAL HISTORY: ABDOMINAL PAIN/GI pain COMPARISON STUDY: 11/26/2016 FINDINGS: Improved blunting of the costophrenic angles. Pulmonary vascular congestion improved from the prior exam. Mild superior mediastinal fullness felt to be technical. IMPRESSION: Improved pulmonary vascular congestion. Electronically signed by: Chinedu Liu M.D. 12/20/2016 9:31 PM Dictated Date/Time: 12/20/2016 9:29 PM
[2016-12-20 21:44] LABS: BASO % 0.2 %; BASO ABS # 0.03 K/uL (0-0.2); COMPLETE YES; EOS % 1.5 %; HEMATOCRIT 35.5 % (42-52); IG% 0.5 %; LYMPH ABS # 2.69 K/uL (1.2-3.4); MEAN CELL VOLUME 92.2 fL (80-100); MEAN CORPUSCULAR HEMOGLOBIN 30.4 pg (25-34); MEAN PLATELET VOLUME 9.7 fL (7.4-10.4); MONO % 7.1 %; NEUT % 71.7 %; PLATELET COUNT 193 K/uL (130-400); RED BLOOD COUNT 3.85 M/uL (4.7-6.1); WHITE BLOOD COUNT 14.16 K/uL (4.8-10.8)
[2016-12-20 21:53] LABS: MANUAL MICROSCOPIC REQUIRED? NO; REVIEW REQ? YES
[2016-12-20 22:00] LABS: ALT/SGPT 39 U/L (12-78); BLOOD UREA NITROGEN 18 mg/dl (7-18); BUN/CREATININE RATIO 19.7 (10-20); CARBON DIOXIDE 26 mmol/L (21-32); CHLORIDE 107 mmol/L (98-107); CREATININE 0.92 mg/dl (0.60-1.40); GLUCOSE 112 mg/dl (70-99); SODIUM 141 mmol/L (136-145)
[2016-12-20 22:05] LABS: ALB/GLOB RATIO 0.5 (0.9-2); ALKALINE PHOSPHATASE 134 U/L (45-117); AST/SGOT 72 U/L (15-37)
[2016-12-20 22:06] LABS: PARTIAL THROMBOPLASTIN RATIO 1.9
[2016-12-20 22:13] LABS: CALCIUM 8.4 mg/dl (8.5-10.1); PROTHROMBIN TIME (PATIENT) 57.2 SECONDS (9.0-12.0)
[2016-12-20] MEDS ORDERED: PIPERACILLIN/TAZOBACTAM 4.5 GM/100ML D5W IV STA (22:20)
--- NOTE | 2016-12-20 22:36 | EMERGENCY ROOM VISIT NOTE ---
History Report prepared by Chloe: Luisito López Under the Supervision of: Dr. Edvin Ellis M.D. First contact with patient: 20:46 Chief Complaint: ABDOMINAL PAIN Stated Complaint: AB PAIN, BACK PAIN Nursing Triage Summary: Patient arrived via EMS. EMS reports patient recently discharged from hospital. EMS reports patient has 10/10 back pain and abdominal pain. 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 History of Present Illness The patient is a 86 year old male who presents to the Emergency Room with complaints of constant lower back and abdominal pain beginning several hours ago. He does not speak German. He has a history of splenic issues. Per daughter , the patient's pain is worsened with movement and deep breathing. She states that the patient appears to be having muscle spasms. She denies any diarrhea, constipation, fevers, vomiting, or urinary symptoms. The patient has a chronic Noyola catheter in place. He is on Coumadin. The patient's daughter states that the patient has had this pain, but it worsened significantly today. She states that the patient has not had much to eat today due to the patient having no appetite. She denies any recent known falls. Source of History: patient Onset: A few hours ago Position: back Timing: constant Modifying Factors (Worsening): breathing (deep), movement Associated Symptoms: + abdominal pain, No diarrhea, No fevers, No urinary symptoms, No vomiting Note: The patient denies any constipation. Review of Systems See HPI for pertinent positives & negatives. A total of 10 systems reviewed and were otherwise negative. Past Medical & Surgical Medical Problems: (1) BPH (benign prostatic hyperplasia) (2) Chronic back pain (3) Diastolic CHF (4) PAF (paroxysmal atrial fibrillation) (5) Urinary retention Surgical Problems: (1) No pertinent past surgical history Family History Patient reports no known family medical history. Social History Smoking Status: Former Smoker Drug Use: none Marital Status: Housing Status: lives with family Occupation Status: retired Current/Historical Medications Scheduled Dutasteride (Avodart), 0.5 MG PO DAILY Metoprolol Tartrate (Lopressor) (Lopressor), 25 MG PO BID Nitroglycerin (Nitrostat), 0.4 MG UT PRN Tamsulosin Hcl (Flomax), 0.4 MG PO DAILY Warfarin Sod (Coumadin), 0.5-1 TAB PO DAILY Scheduled PRN Acetaminophen (Tylenol), 500 MG PO Q4 PRN for Pain or Fever Docusate Sodium (Colace), 1 CAP PO BID PRN for Constipation Hydrocodone/Acetaminophen 5MG/325MG ([place] 5MG/325MG), 1 TAB PO HS PRN for Pain Sennosides-Docusate Sodium (Senna-S), 1 TAB PO DAILY PRN for Constipation Allergies Coded Allergies: No Known Allergies (Verified , 10/16/16) Physical Exam Vital Signs Date Time Temp Pulse Resp B/P Pulse Ox O2 Delivery O2 Flow Rate FiO2 12/21/16 01:40 129 16 90/54 94 Nasal Cannula 2.0 12/21/16 01:26 127 16 108/70 98 Nasal Cannula 2.0 12/21/16 01:04 121 16 95/62 100 Nasal Cannula 2.0 12/21/16 00:55 107 20 81/52 93 12/21/16 00:48 152 20 89/74 95 12/21/16 00:43 149 20 77/49 95 12/20/16 23:32 97 18 120/65 96 Room Air 12/20/16 21:39 94 18 179/88 99 Room Air 12/20/16 21:11 96 12/20/16 20:07 36.6 109 20 183/105 98 Room Air Physical Exam GENERAL: Patient is in no acute distress. Pain in the back and abdomen with any movement. HEENT: No acute trauma, normocephalic atraumatic, mucous membranes dry, no nasal congestion, no scleral icterus. NECK: No stridor, no adenopathy, no meningismus, trachea is midline. LUNGS: Clear to auscultation bilaterally, no wheeze, no rhonchi, breath sounds equal. HEART: Without murmurs gallops or rubs, regular rate and rhythm. ABDOMEN: Distended but soft. No peritonitis. No obvious hernia. Noyola catheter in place. EXTREMITIES: No cyanosis or edema, full range of motion of all the joints without pain or difficulty, no signs for acute trauma. NEUROLOGIC: Oriented x 3, no acute motor or sensory deficits, no focal weakness. SKIN: No rash, no jaundice, no diaphoresis, pale in appearance. Medical Decision & Procedures ER Provider Diagnostic Interpretation: X-ray results as stated below per interpretation by me and the radiologist. CT results as stated below per my review and radiologist interpretation: LUMBAR SPINE CT FINDINGS: Progressive developing destructive changes of the inferior endplate of L2, superior endplate of L3, with a somewhat progressive sclerosis of the associated L2 and L3 vertebral bodies. Paravertebral soft tissues show an associated soft tissue component enlarging the left iliopsoas musculature, with pre-existing potential abscess and or collection involving the right psoas muscle. This progressive change suggest the possibility of discitis with secondary osteomyelitis at the L2-L3 level with less prominent findings at L1-L2. There is no evidence for compression deformity at this time. Remaining vertebral bodies are unremarkable in terms stature. IMPRESSION: 1. Developing destructive changes involving the superior endplate of L3, inferior endplate of L2, with less prominent findings involving the superior endplate and associated disc at L1-L2.. 2. Progressive enlargement of the left iliopsoas muscle as compared to the prior study raising the possibility of surrounding soft tissue component and/or secondary focus of hemorrhage or developing abscess formation. 3. Pre-existing abscess of the right so as to muscle similar in appearance to the prior CT abdomen and pelvis. 4. The appearance is most consistent with that of discitis at L2-L3 and to a lesser extent L1-L2 5. A destructive changes and associated sclerosis suggest secondary osteomyelitis involving the superior aspect of the L3 vertebral body as well as the bulk of the L2 vertebral body. 6. The surrounding soft tissue changes of the psoas musculature suggests developing and or pre-existing soft tissue inflammatory or infectious-type change, all of which are progressive compared to the prior study. 7. No evidence for a compression deformity. Electronically signed by: Chinedu Liu M.D. THORACIC SPINE CT FINDINGS: Vertebral body stature is normal. There is no compression deformity. Transaxial images confirm degenerative changes of posterior limits. No acute bony abnormalities appreciated. As on those made of a right and to lesser extent small left pleural effusion. IMPRESSION: Degenerative change. No acute bony abnormality. Bilateral pleural effusions. Electronically signed by: Chinedu Liu M.D. ABDOMEN AND PELVIS CT WITH IV CONTRAST FINDINGS: Bibasilar parenchymal infiltrates. Bilateral pleural effusions. Bowel pattern overall is nonobstructive. The described splenic laceration versus subcapsular infarct is similar. Liver again is uniform. Pancreas demonstrates moderate fatty replacement. Spleen shows a slight degree of distention. Patient has developed an enlarged left iliopsoas muscle as compared to the right. This potentially relates to hematoma.. No mass, there is also a potential developing destructive process involving the L2 and L3 vertebral bodies with involvement of the L2-L3 and to lesser extent L3-L4 intervertebral disc. This potentially represents disc as an osteomyelitis. This may be related to the left iliopsoas enlargement. PROCEDURE: Described right iliopsoas collection is similar. Bowel pattern again is nonobstructive. There is mild large enlargement of the left lateral pelvic sidewall musculature as compared to the right. This is nonspecific. There is a Noyola catheter within the bladder. There is no significant free fluid within the pelvic cul-de-sac. IMPRESSION: 1. Nonobstructive bowel pattern. 2. Findings of a developing mass or bony destructive change involving the L3 and to a lesser extent L2 vertebral body and associated disc. 3. This is associated with a previously described collection of the right iliopsoas as well has interval enlargement of the left iliopsoas musculature. 4. This is highly suggestive of developing osteomyelitis and discitis of the L2 and L3 vertebral bodies as well as a minimum L2-L3 intervertebral disc. 5. The enlargement of the left iliopsoas potentially relates to extension of infectious process to that structure as well as the left lateral superior pelvic sidewall region. 6. 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 CHEST ONE VIEW PORTABLE FINDINGS: Improved blunting of the costophrenic angles. Pulmonary vascular congestion improved from the prior exam. Mild superior mediastinal fullness felt to be technical. IMPRESSION: Improved pulmonary vascular congestion. Electronically signed by: Chinedu Liu M.D. Laboratory Results 12/20/16 21:35 Red Blood Count 3.85, Mean Corpuscular Volume 92.2, Mean Corpuscular Hemoglobin 30.4, Mean Corpuscular Hemoglobin Concent 33.0, Mean Platelet Volume 9.7, Neutrophils (%) (Auto) 71.7, Lymphocytes (%) (Auto) 19.0, Monocytes (%) (Auto) 7.1, Eosinophils (%) (Auto) 1.5, Basophils (%) (Auto) 0.2, Neutrophils # (Auto) 10.15, Lymphocytes # (Auto) 2.69, Monocytes # (Auto) 1.01, Eosinophils # (Auto) 0.21, Basophils # (Auto) 0.03 12/20/16 21:35 Test 12/20/16 21:05 12/20/16 21:35 Urine Color YELLOW Urine Appearance CLOUDY (CLEAR) Urine pH 6.0 (4.5-7.5) Urine Specific [place] 1.010 (1.000-1.030) Urine Protein TRACE (NEG) Urine Glucose (UA) NEG (NEG) Urine Ketones NEG (NEG) Urine Occult Blood 3+ (NEG) Urine Nitrite POS (NEG) Urine Bilirubin NEG (NEG) Urine Urobilinogen NEG (NEG) Urine Leukocyte Esterase LARGE (NEG) Urine WBC (Auto) >30 /hpf (0-5) Urine RBC (Auto) >30 /hpf (0-4) Urine Hyaline Casts (Auto) /lpf (0-5) Urine Epithelial Cells (Auto) 10-20 /lpf (0-5) Urine Bacteria (Auto) 3+ (NEG) Urine Pathogenic Casts /lpf (0) White Blood Count 14.16 K/uL (4.8-10.8) Red Blood Count 3.85 M/uL (4.7-6.1) Hemoglobin 11.7 g/dL (14.0-18.0) Hematocrit 35.5 % (42-52) Mean Corpuscular Volume 92.2 fL (80-100) Mean Corpuscular Hemoglobin 30.4 pg (25-34) Mean Corpuscular Hemoglobin Concent 33.0 g/dl (32-36) Platelet Count 193 K/uL (130-400) Mean Platelet Volume 9.7 fL (7.4-10.4) Neutrophils (%) (Auto) 71.7 % Lymphocytes (%) (Auto) 19.0 % Monocytes (%) (Auto) 7.1 % Eosinophils (%) (Auto) 1.5 % Basophils (%) (Auto) 0.2 % Neutrophils # (Auto) 10.15 K/uL (1.4-6.5) Lymphocytes # (Auto) 2.69 K/uL (1.2-3.4) Monocytes # (Auto) 1.01 K/uL (0.11-0.59) Eosinophils # (Auto) 0.21 K/uL (0-0.5) Basophils # (Auto) 0.03 K/uL (0-0.2) RDW Standard Deviation 51.8 fL (36.4-46.3) RDW Coefficient of Variation 15.3 % (11.5-14.5) Immature Granulocyte % (Auto) 0.5 % Immature Granulocyte # (Auto) 0.07 K/uL (0.00-0.02) Prothrombin Time 57.2 SECONDS (9.0-12.0) Prothromb Time International Ratio 5.0 (0.9-1.1) Activated Partial Thromboplast Time 50.6 SECONDS (21.0-31.0) Partial Thromboplastin Ratio 1.9 Anion Gap 8.0 mmol/L (3-11) Est Creatinine Clear Calc Drug Dose 51.0 ml/min Estimated GFR () 86.4 Estimated GFR (Non- 74.5 BUN/Creatinine Ratio 19.7 (10-20) Lactic Acid Level 2.3 mmol/L (0.4-2.0) Calcium Level 8.4 mg/dl (8.5-10.1) Total Bilirubin 0.8 mg/dl (0.2-1) Aspartate Amino Transf (AST/SGOT) 72 U/L (15-37) Alanine Aminotransferase (ALT/SGPT) 39 U/L (12-78) Alkaline Phosphatase 134 U/L (45-117) Troponin I < 0.015 ng/ml (0-0.045) Total Protein 7.2 gm/dl (6.4-8.2) Albumin 2.3 gm/dl (3.4-5.0) Globulin 4.9 gm/dl (2.5-4.0) Albumin/Globulin Ratio 0.5 (0.9-2) Lipase 205 U/L (73-393) Laboratory results reviewed by me. Medications Administered Medications (Trade) Dose Ordered Sig/Malik Route Start Time Stop Time Status Last Admin Dose Admin Sodium Chloride (Nss 1000ml) 500 ml @ 999 mls/hr Q31M STAT IV 12/20/16 20:51 12/20/16 21:21 DC 12/20/16 20:51 999 MLS/HR Ondansetron HCl 4 mg 4 mg NOW STAT IV 12/20/16 20:51 12/20/16 20:54 DC 12/20/16 21:18 4 MG Sodium Chloride (Nss 1000ml) 1,000 ml @ 200 mls/hr Q5H STAT IV 12/20/16 20:51 12/21/16 01:50 12/20/16 20:51 200 MLS/HR Morphine Sulfate (MoRPHine SULFATE INJ) 4 mg Q30M PRN IV 12/20/16 21:00 01/03/17 20:59 12/20/16 21:19 4 MG Piperacillin Sod/ Tazobactam Sod (Zosyn Iv) 4.5 gm NOW STAT IV 12/20/16 22:20 12/20/16 22:21 DC 12/20/16 22:20 4.5 GM Vancomycin HCl (Vancomycin 1gm/ 270ml Nss) 1 gm NOW STAT IV 12/20/16 23:03 12/20/16 23:05 DC 12/20/16 23:03 1 GM Diltiazem HCl 25 mg 25 mg STK-MED ONCE .ROUTE 12/21/16 00:41 12/21/16 00:42 DC 12/21/16 00:55 10 MG Sodium Chloride 500 ml @ 999 mls/hr Q31M STAT IV 12/21/16 00:45 12/21/16 01:15 DC 12/21/16 00:45 999 MLS/HR Diltiazem HCl 125 mg/Dextrose 125 ml @ 5 mls/hr Q24H PRN IV 12/21/16 01:00 12/21/16 10:00 12/21/16 01:10 2.5 MLS/HR Sodium Chloride 500 ml @ 999 mls/hr Q31M STAT IV 12/21/16 00:52 12/21/16 01:22 DC 12/21/16 00:52 999 MLS/HR Sodium Chloride (Nss 1000ml) 1,000 ml @ 999 mls/hr Q1H1M STAT IV 12/21/16 00:52 12/21/16 01:52 12/21/16 00:52 999 MLS/HR ECG Indication: back/shoulder pain Rate (beats per minute): 89 Rhythm: sinus rhythm Findings: PVC, T-wave inversion (Anterolateral) Comparison ECG Date: November 26, 2016 Change: T wave inversions are new. Repeat ECG reveals a rapid atrial fibrillation with a rate of [address] depressions noted. No evidence for acute GA. ED Course 2047: The patient was evaluated in room B6. A complete history and physical exam was performed. 2050: Ordered Sodium Chloride 1000 ml @ 200 mls/hr IV, Zofran Inj 4 mg IV, Sodium Chloride 500 ml @ 999 mls/hr IV. 2100: Ordered Morphine Sulfate 4 mg IV. 2220: Ordered Zosyn 4.5 gm IV. 2303: Ordered Vancomycin 1 gm/270 mL NSS 1 gm IV. 2345: Upon reexamination the patient is resting comfortably. I discussed results and treatment plan with the patient. He verbalizes agreement and understanding. The patient will be evaluated for further management. 0030: The patient's heart rhythm on the monitor appears to be a rapid a-fib. Ordered Cardizem Drip. Medical Decision The patient is a 86 year old male who presents to the ED with complaints of abdominal pain. Differential diagnoses considered include lumbar or thoracic fracture, spinal abscess, osteomyelitis, bowel obstruction, UTI, intraabdominal bleeding, renal or splenic infarct, pancreatitis, pneumonia, dehydration and electrolyte imbalance. There is a mild leukocytosis, this is consistent with infection. No worrisome anemia. Lactic acid level is somewhat elevated consistent with sepsis and dehydration. Blood cultures are pending. Urinalysis does suggest infection, urine culture is pending. Chest film does not show pneumonia or CHF. There was no significant electrolyte abnormality or kidney failure. There were a few mild liver enzyme elevations. The patient's INR was high, he was over anticoagulated on Coumadin. There was no pancreatitis. CTs of the thoracic, lumbar spine, CTs of the abdomen and pelvis were done. 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 The left iliopsoas muscle was enlarged and this was consistent with possible infection versus hematoma. There was no bowel obstruction. No free air. Initial EKG showed a sinus rhythm with PVCs. Cardiac enzyme testing times one was not consistent with acute cardiac injury. Patient received IV Zosyn and IV vancomycin, he was given IV saline. He received IV morphine for pain, IV Zofran for nausea. During the patient's stay, he went into a rapid A. fib with a rate of about 116. His blood pressure dropped with this fast heart rate. He received additional IV saline. He was given a bolus of IV diltiazem and then placed on a diltiazem drip. This treatment helped to better control the blood pressure and heart rate. The patient was basically asymptomatic though with the rapid A. fib. As per his family, this type of rhythm disturbance has happened before when he has been ill. The patient is in need of hospitalization. He has osteomyelitis/discitis. He has a UTI. He now is in a rapid A. fib. His blood pressure is tenuous with the rapid A. fib. I spoke to his family, I talked with the nurse outreach case manager. The on-call hospitalist was consulted. Medication Reconciliation: I attest that I have personally reviewed the patient' s current medication list. Consults Time Called: [phone] Consulting Physician: Dr. Neha Block Returned Call: [phone] Discussed the patient's case. The patient will be evaluated for further management. Impression Primary Impression: Osteomyelitis Additional Impressions: Discitis UTI (urinary tract infection) Critical Care I have personally spent greater than 30 minutes of critical care time in the direct management of this patient. This includes bedside care, interpretation of diagnostic studies and testing, discussion with consultants, the patient, and family members, and other required patient management activities. This 30 minutes is in excess of all separately billable procedures. Scribe Attestation The scribe's documentation has been prepared under my direction and personally reviewed by me in its entirety. I confirm that the note above accurately reflects all work, treatment, procedures, and medical decision making performed by me. Departure Information Dispostion Being Evaluated By Hospitalist Referrals Tamara Toribio D.O. (PCP) Patient Instructions [facility] Problem Qualifiers
--- NOTE | 2016-12-20 22:44 | DIAGNOSTIC IMAGING REPORT ---
THORACIC SPINE CT CT DOSE: HISTORY: Pain pain, posse fx TECHNIQUE: Multiaxial CT images of the thoracic spine were performed and reformatted in the sagittal and coronal plane without the use of contrast. COMPARISON: None. FINDINGS: Vertebral body stature is normal. There is no compression deformity. Transaxial images confirm degenerative changes of posterior limits. No acute bony abnormalities appreciated. As on those made of a right and to lesser extent small left pleural effusion. IMPRESSION: Degenerative change. No acute bony abnormality. Bilateral pleural effusions. Electronically signed by: Chinedu Liu M.D. 12/20/2016 10:42 PM Dictated Date/Time: 12/20/2016 10:39 PM
--- NOTE | 2016-12-20 22:53 | DIAGNOSTIC IMAGING REPORT ---
ABDOMEN AND PELVIS CT WITH IV CONTRAST CT DOSE: HISTORY: Pain ABD PAIN, POSS OBSTRUCTION, IV CONTRAST ONLY TECHNIQUE: Multiaxial CT images of the abdomen and pelvis were performed following the use of intravenous contrast. COMPARISON STUDY: 11/26/2016 FINDINGS: Bibasilar parenchymal infiltrates. Bilateral pleural effusions. Bowel pattern overall is nonobstructive. The described splenic laceration versus subcapsular infarct is similar. Liver again is uniform. Pancreas demonstrates moderate fatty replacement. Spleen shows a slight degree of distention. Patient has developed an enlarged left iliopsoas muscle as compared to the right. This potentially relates to hematoma.. No mass, there is also a potential developing destructive process involving the L2 and L3 vertebral bodies with involvement of the L2-L3 and to lesser extent L3-L4 intervertebral disc. This potentially represents disc as an osteomyelitis. This may be related to the left iliopsoas enlargement. PROCEDURE: Described right iliopsoas collection is similar. Bowel pattern again is nonobstructive. There is mild large enlargement of the left lateral pelvic sidewall musculature as compared to the right. This is nonspecific. There is a Noyola catheter within the bladder. There is no significant free fluid within the pelvic cul-de-sac. IMPRESSION: 1. Nonobstructive bowel pattern. 2. Findings of a developing mass or bony destructive change involving the L3 and to a lesser extent L2 vertebral body and associated disc. 3. This is associated with a previously described collection of the right iliopsoas as well has interval enlargement of the left iliopsoas musculature. 4. This is highly suggestive of developing osteomyelitis and discitis of the L2 and L3 vertebral bodies as well as a minimum L2-L3 intervertebral disc. 5. The enlargement of the left iliopsoas potentially relates to extension of infectious process to that structure as well as the left lateral superior pelvic sidewall region. 6. 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 12/20/2016 10:52 PM Dictated Date/Time: 12/20/2016 10:43 PM
[2016-12-20] MEDS ORDERED: VANCOMYCIN 1GM/270ML NSS IV STA (23:03)
--- NOTE | 2016-12-20 23:11 | DIAGNOSTIC IMAGING REPORT ---
LUMBAR SPINE CT CT DOSE: 943.06 mGy.cm HISTORY: Pain pain, posse fx TECHNIQUE: Multiaxial CT images of the lumbar spine were performed and reformatted in the sagittal and coronal plane without the use of contrast. COMPARISON: CT abdomen and pelvis dated 11/26/2016 and 10/16/2016 FINDINGS: Progressive developing destructive changes of the inferior endplate of L2, superior endplate of L3, with a somewhat progressive sclerosis of the associated L2 and L3 vertebral bodies. Paravertebral soft tissues show an associated soft tissue component enlarging the left iliopsoas musculature, with pre-existing potential abscess and or collection involving the right psoas muscle. This progressive change suggest the possibility of discitis with secondary osteomyelitis at the L2-L3 level with less prominent findings at L1-L2. There is no evidence for compression deformity at this time. Remaining vertebral bodies are unremarkable in terms stature. IMPRESSION: 1. Developing destructive changes involving the superior endplate of L3, inferior endplate of L2, with less prominent findings involving the superior endplate and associated disc at L1-L2.. 2. Progressive enlargement of the left iliopsoas muscle as compared to the prior study raising the possibility of surrounding soft tissue component and/or secondary focus of hemorrhage or developing abscess formation. 3. Pre-existing abscess of the right so as to muscle similar in appearance to the prior CT abdomen and pelvis. 4. The appearance is most consistent with that of discitis at L2-L3 and to a lesser extent L1-L2 5. A destructive changes and associated sclerosis suggest secondary osteomyelitis involving the superior aspect of the L3 vertebral body as well as the bulk of the L2 vertebral body. 6. The surrounding soft tissue changes of the psoas musculature suggests developing and or pre-existing soft tissue inflammatory or infectious-type change, all of which are progressive compared to the prior study. 7. No evidence for a compression deformity. Electronically signed by: Chinedu Liu M.D. 12/20/2016 11:09 PM Dictated Date/Time: 12/20/2016 11:00 PM
[2016-12-21] VITALS (8 sets, daily range): BP systolic 121–145; BP diastolic 64–83; PULSE 75–94; TEMP 36.6–37.1; O2SAT 92–99; Ht 167.6 cm; Wt 65.0 kg
[2016-12-21] MEDS ORDERED: DILTIAZEM BOLUS / DRIP IV STA ×2 (00:38→02:25)
[2016-12-21] MEDS ORDERED: DILTIAZEM HCL 5 MG/ML 5 ML VIAL ONE (00:41)
[2016-12-21] MEDS ORDERED: SODIUM CHLORIDE 0.9% 500ML 500 ML IV STA ×2 (00:45→00:52)
[2016-12-21] MEDS ORDERED: SODIUM CHLORIDE 0.9% 1000ML 1,000 ML IV STA (00:52)
[2016-12-21] MEDS: DILTIAZEM HCL INJ 125 MG in DEXTROSE 5% 100ML IV PRN (01:10)
[2016-12-21] MEDS ORDERED: OXYMETAZOLINE HCL 0.05% NA SPR 15 ML BTL ONE (02:17)
[2016-12-21] MEDS ORDERED: HYDROCODONE/ACETAMOPHEN 5/325MG TAB PO PRN (02:45)
--- NOTE | 2016-12-21 02:55 | History and Physical ---
History & Physical Date & Time of Service: December 21, 2016 at 02:37 Chief Complaint: Ab Pain, Back Pain Primary Care Physician: Tamara Toribio D.O. History of Present Illness Source: patient, family, clinic records, hospital records 86 year old male with history of recent diagnosis of Ileopsoas abscess, Chronic A fib on coumadin, NSTEMI, CHF, DVT, Chronic Urinary Retention on Murray catheter presenting with increasing back pain. History obtained from patient's daughters at the bedside as the patient speaks Congolese only. Patient was recently admitted earlier this month for Ileopsoas Abscess and was discharged on PO Clindamycin. As per his daughters, patient has been having progressive abdominal and lower back pain since. No fever/chills, headache, chest pain, dyspnea, changes with bowel movements. At the ER, patient arrived tachycardic, afebrile. WBC elevated at 14k and INR also supratherapeutic at 5. CT lumbar spine showed possible L2-L3 Osteomyelitis or Discitis. CT abdomen showed enlarging Left Ileopsoas muscle, possible underlying abscess vs. hematoma. He was started on IV fluids, Vanco and Zosyn. While being observed at the ER, patient also developed RVR with hypotension. He was given additional IV fluids and started on Diltiazem. On exam, patient was alert, but feels weak. Morphine IV affords pain relief. Denies active shortness of breath, palpitations, dizziness, chest pain, nausea. No other symptoms Past Medical/Surgical History Medical Problems: (1) BPH (benign prostatic hyperplasia) Status: Chronic (2) Chronic back pain Status: Chronic (3) Diastolic CHF Status: Chronic (4) PAF (paroxysmal atrial fibrillation) Status: Chronic (5) Urinary retention Status: Chronic Surgical Problems: (1) No pertinent past surgical history Status: Chronic Family History Patient reports no known family medical history. Social History Smoking Status: Former Smoker Drug Use: none Marital Status: Housing status: lives with family Occupational Status: retired Multi-Drug Resistant Organisms History of MDRO: No Allergies Coded Allergies: No Known Allergies (Verified , 10/16/16) Home Medications Scheduled Dutasteride (Avodart), 0.5 MG PO DAILY Metoprolol Tartrate (Lopressor) (Lopressor), 25 MG PO BID Nitroglycerin (Nitrostat), 0.4 MG UT PRN Tamsulosin Hcl (Flomax), 0.4 MG PO DAILY Warfarin Sod (Coumadin), 0.5-1 TAB PO DAILY Scheduled PRN Acetaminophen (Tylenol), 500 MG PO Q4 PRN for Pain or Fever Docusate Sodium (Colace), 1 CAP PO BID PRN for Constipation Hydrocodone/Acetaminophen 5MG/325MG ([place] 5MG/325MG), 1 TAB PO HS PRN for Pain Sennosides-Docusate Sodium (Senna-S), 1 TAB PO DAILY PRN for Constipation Review of Systems Constitutional- no fever; no weight loss Eyes- no acute visual changes ENT- no sinus drainage; no pharyngitis Pulmonary- no cough, no wheezing, no shortness of breath Cardiac- no chest pain, no palpitations, no orthopnea, no dependent edema GI- no nausea, no vomiting, no diarrhea, no melena, no hematochezia - no dysuria, no hematuria Musculoskeletal- (+) as noted above Derm- no rashes, no new skin lesions, no changing skin lesions Hematologic- no unusual bruising, no unusual bleeding Lymphatics- no adenopathy Endocrine- no polyuria or polydipsia; no heat or cold intolerance Neuro- no headaches, no focal neurologic symptoms Psych- no anxiety, no depression Physical Exam Vital Signs Date Time Temp Pulse Resp B/P Pulse Ox O2 Delivery O2 Flow Rate FiO2 12/21/16 02:21 100 16 118/65 92 Nasal Cannula 2.0 12/21/16 02:02 127 14 91/54 92 Nasal Cannula 4.0 12/21/16 01:50 123 94 Nasal Cannula 2.0 12/21/16 01:46 100/64 12/21/16 01:45 138 92 Nasal Cannula 2.0 12/21/16 01:40 132 93 Nasal Cannula 2.0 12/21/16 01:40 129 16 90/54 94 Nasal Cannula 2.0 12/21/16 01:38 90/54 12/21/16 01:35 132 26 94 12/21/16 01:31 102/66 12/21/16 01:30 135 30 95 12/21/16 01:26 127 16 108/70 98 Nasal Cannula 2.0 12/21/16 01:04 121 16 95/62 100 Nasal Cannula 2.0 12/21/16 00:55 107 20 81/52 93 12/21/16 00:48 152 20 89/74 95 12/21/16 00:43 149 20 77/49 95 12/20/16 23:32 97 18 120/65 96 Room Air 12/20/16 21:39 94 18 179/88 99 Room Air 12/20/16 21:11 96 12/20/16 20:07 36.6 109 20 183/105 98 Room Air General Appearance: WD/WN, no apparent distress Head: normocephalic, atraumatic Eyes: normal inspection, PERRL, EOMI, sclerae normal ENT: normal ENT inspection, hearing grossly normal, pharynx normal, + pertinent finding (erythema, scabbing on the nasal septum, right side) Neck: supple, thyroid normal Respiratory/Chest: chest non-tender, lungs clear, normal breath sounds, no respiratory distress, no accessory muscle use Cardiovascular: no JVD, no murmur, + tachycardia (mild), + irregularly irregular Abdomen/GI: normal bowel sounds, non tender, soft Back: + pertinent finding (not performed as patient has severe pain with minimal movement) Extremities/Musculoskelatal: normal inspection, no calf tenderness 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, no motor/sensory deficits, alert, normal mood/affect, oriented x 3 Skin: normal color, warm/dry Lymphatic: no adenopathy Diagnostics Laboratory Results Results Past 24 Hours Test 12/20/16 21:05 12/20/16 21:35 Range/Units Urine Color YELLOW Urine Appearance CLOUDY CLEAR Urine pH 6.0 4.5-7.5 Urine Specific [place] 1.010 1.000-1.030 Urine Protein TRACE NEG Urine Glucose (UA) NEG NEG Urine Ketones NEG NEG Urine Occult Blood 3+ NEG Urine Nitrite POS NEG Urine Bilirubin NEG NEG Urine Urobilinogen NEG NEG Urine Leukocyte Esterase LARGE NEG Urine WBC (Auto) >30 0-5 /hpf Urine RBC (Auto) >30 0-4 /hpf Urine Hyaline Casts (Auto) 0-5 /lpf Urine Epithelial Cells (Auto) 10-20 0-5 /lpf Urine Bacteria (Auto) 3+ NEG Urine Pathogenic Casts 0 /lpf White Blood Count 14.16 4.8-10.8 K/uL Red Blood Count 3.85 4.7-6.1 M/uL Hemoglobin 11.7 14.0-18.0 g/dL Hematocrit 35.5 42-52 % Mean Corpuscular Volume 92.2 80-100 fL Mean Corpuscular Hemoglobin 30.4 25-34 pg Mean Corpuscular Hemoglobin Concent 33.0 32-36 g/dl Platelet Count 193 130-400 K/uL Mean Platelet Volume 9.7 7.4-10.4 fL Neutrophils (%) (Auto) 71.7 % Lymphocytes (%) (Auto) 19.0 % Monocytes (%) (Auto) 7.1 % Eosinophils (%) (Auto) 1.5 % Basophils (%) (Auto) 0.2 % Neutrophils # (Auto) 10.15 1.4-6.5 K/uL Lymphocytes # (Auto) 2.69 1.2-3.4 K/uL Monocytes # (Auto) 1.01 0.11-0.59 K/uL Eosinophils # (Auto) 0.21 0-0.5 K/uL Basophils # (Auto) 0.03 0-0.2 K/uL RDW Standard Deviation 51.8 36.4-46.3 fL RDW Coefficient of Variation 15.3 11.5-14.5 % Immature Granulocyte % (Auto) 0.5 % Immature Granulocyte # (Auto) 0.07 0.00-0.02 K/uL Prothrombin Time 57.2 9.0-12.0 SECONDS Prothromb Time International Ratio 5.0 0.9-1.1 Activated Partial Thromboplast Time 50.6 21.0-31.0 SECONDS Partial Thromboplastin Ratio 1.9 Sodium Level 141 136-145 mmol/L Potassium Level 4.0 3.5-5.1 mmol/L Chloride Level 107 98-107 mmol/L Carbon Dioxide Level 26 21-32 mmol/L Anion Gap 8.0 3-11 mmol/L Blood Urea Nitrogen 18 7-18 mg/dl Creatinine 0.92 0.60-1.40 mg/dl Est Creatinine Clear Calc Drug Dose 51.0 ml/min Estimated GFR () 86.4 Estimated GFR (Non- 74.5 BUN/Creatinine Ratio 19.7 10-20 Random Glucose 112 70-99 mg/dl Lactic Acid Level 2.3 0.4-2.0 mmol/L Calcium Level 8.4 8.5-10.1 mg/dl Total Bilirubin 0.8 0.2-1 mg/dl Aspartate Amino Transf (AST/SGOT) 72 15-37 U/L Alanine Aminotransferase (ALT/SGPT) 39 12-78 U/L Alkaline Phosphatase 134 45-117 U/L Troponin I < 0.015 0-0.045 ng/ml Total Protein 7.2 6.4-8.2 gm/dl Albumin 2.3 3.4-5.0 gm/dl Globulin 4.9 2.5-4.0 gm/dl Albumin/Globulin Ratio 0.5 0.9-2 Lipase 205 73-393 U/L Microbiology Results 12/20/16 Blood Culture, Received Pending 12/20/16 Blood Culture, Received Pending 12/20/16 Urine Culture, Received Pending Diagnostic Radiology CT lumbar spine 1. Developing destructive changes involving the superior endplate of L3, inferior endplate of L2, with less prominent findings involving the superior endplate and associated disc at L1-L2.. 2. Progressive enlargement of the left iliopsoas muscle as compared to the prior study raising the possibility of surrounding soft tissue component and/or secondary focus of hemorrhage or developing abscess formation. 3. Pre-existing abscess of the right so as to muscle similar in appearance to the prior CT abdomen and pelvis. 4. The appearance is most consistent with that of discitis at L2-L3 and to a lesser extent L1-L2 5. A destructive changes and associated sclerosis suggest secondary osteomyelitis involving the superior aspect of the L3 vertebral body as well as the bulk of the L2 vertebral body. 6. The surrounding soft tissue changes of the psoas musculature suggests developing and or pre-existing soft tissue inflammatory or infectious-type change, all of which are progressive compared to the prior study. 7. No evidence for a compression deformity. Impression Assessment and Plan 86 year old male with history of recent diagnosis of Ileopsoas abscess, Chronic A fib on coumadin, NSTEMI, CHF, DVT, Chronic Urinary Retention on Mruray catheter presenting with increasing back pain. 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 Y/N: Yes Risk Level: High
[2016-12-21] MEDS ORDERED: METOPROLOL TARTRATE 25 MG TAB PO ONE (03:30)
[2016-12-21] MEDS ORDERED: PHYTONADIONE INJ 5 MG in SODIUM CHLORIDE 0.9% 50ML 50 ML IV ONE (03:30)
[2016-12-21] MEDS: SODIUM CHLORIDE 0.9% 1000ML 1,000 ML IV SCH ×2 (03:52→18:03)
--- NOTE | 2016-12-21 04:05 | Surgery Consultation ---
Consultation Date of Consultation: December 21, 2016. Attending Physician: Juan Knutson M.D. History of Present Illness The patient is a 86 year old male who presents to the Emergency Room with complaints of constant lower back and abdominal pain beginning several hours ago. He does not speak Belarusian. He has a history of splenic issues. Per daughter , the patient's pain is worsened with movement and deep breathing. She states that the patient appears to be having muscle spasms. She denies any diarrhea, constipation, fevers, vomiting, or urinary symptoms. The patient has a chronic Haas catheter in place. He is on Coumadin. The patient's daughter states that the patient has had this pain, but it worsened significantly today. She states that the patient has not had much to eat today due to the patient having no appetite. She denies any recent known falls. I got a call for consult possible hematoma or abscess on left abdominal wall, now pt denies abdominal pain, no fever, no nausea, no vomiting, Past Medical/Surgical History Medical Problems: (1) ARF (acute renal failure) Status: Acute (2) Atrial fibrillation with RVR Status: Acute (3) Discitis Status: Acute (4) Osteomyelitis Status: Acute (5) Pneumonia Status: Acute (6) Pyelonephritis Status: Acute (7) Splenic infarct Status: Acute (8) UTI (urinary tract infection) Status: Acute Family History Patient reports no known family medical history. Social History Smoking Status: Former Smoker Drug Use: none Marital Status: Housing Status: lives with family Occupation Status: retired Allergies Coded Allergies: No Known Allergies (Verified , 10/16/16) Home Medications Scheduled Dutasteride (Avodart), 0.5 MG PO DAILY Metoprolol Tartrate (Lopressor) (Lopressor), 25 MG PO BID Nitroglycerin (Nitrostat), 0.4 MG UT PRN Tamsulosin Hcl (Flomax), 0.4 MG PO DAILY Warfarin Sod (Coumadin), 0.5-1 TAB PO DAILY Scheduled PRN Acetaminophen (Tylenol), 500 MG PO Q4 PRN for Pain or Fever Docusate Sodium (Colace), 1 CAP PO BID PRN for Constipation Hydrocodone/Acetaminophen 5MG/325MG ([place] 5MG/325MG), 1 TAB PO HS PRN for Pain Sennosides-Docusate Sodium (Senna-S), 1 TAB PO DAILY PRN for Constipation Current Inpatient Medications Current Inpatient Medications Medications (Trade) Dose Ordered Sig/Malik Route Start Time Stop Time Status Last Admin Dose Admin Ioversol 111 ml 111 ml UD PRN IV 12/20/16 21:00 12/24/16 20:59 Diltiazem HCl/ Dextrose (Cardizem Inj/D5 100ml) 125 ml @ 5 mls/hr Q24H PRN IV 12/21/16 01:00 01/20/17 00:59 12/21/16 01:10 2.5 MLS/HR Miscellaneous Information 1 ea 1 ea NOW STAT N/A 12/21/16 02:25 12/21/16 02:26 UNV Sodium Chloride (Nss 1000ml) 1,000 ml @ 75 mls/hr [id number] IV 12/21/16 02:30 01/20/17 02:29 Morphine Sulfate (MoRPHine SULFATE INJ) 4 mg Q3H PRN IV 12/21/16 02:30 01/04/17 02:29 Acetaminophen (Tylenol Tab) 650 mg Q4H PRN PO 12/21/16 02:45 01/20/17 02:44 Metoprolol Tartrate (Lopressor Tab) 25 mg BID PO 12/21/16 09:00 01/20/17 08:59 UNV Senna/Docusate Sodium (Senokot S Tab) 1 tab DAILY PO 12/21/16 09:00 01/20/17 08:59 UNV Non-Formulary Medication (Dutasteride (Avodart)) 0.5 mg DAILY PO 12/21/16 09:00 01/20/17 08:59 UNV Acetaminophen/ Hydrocodone Bitart 1 tab 1 tab Q6H PRN PO 12/21/16 02:45 01/04/17 02:44 Phytonadione/ Sodium Chloride (Aqua-[place]phy[place] Inj/Nss 50ml) 50.5 ml @ 101 mls/hr ONE ONCE IV 12/21/16 03:30 12/21/16 03:59 Review of Systems Constitutional: No chills, No fatigue, No fever, No problem reported, No sweats , No weakness, No weight loss Eyes: No diplopia, No discharge, No eye pain, No problem reported, No redness, No worsening of vision Respiratory: No cough, No dyspnea at rest, No dyspnea on exertion, No hemoptysis, No problem reported, No shortness of breath, No sputum, No wheezing Cardiovascular: + problem reported (P-A-fib), No PND, No chest pain, No claudication, No edema, No orthopnea, No palpitations Abdomen: + problem reported, No GI bleeding, No constipation, No diarrhea, No nausea, No pain, No vomiting Musculoskeletal: + problem reported (back pain) Genitourinary - Male: + problem reported (BPH, chronic haas insertion) Neurologic: No balance problems, No memory loss, No numbness/tingling, No paralysis, No problem reported, No vertigo, No weakness Endocrine: No excessive thirst, No excessive urination, No fatigue, No problem reported Hematologic / Lymphatic: + problem reported (pt is on coumadin) Physical Exam Date Time Temp Pulse Resp B/P Pulse Ox O2 Delivery O2 Flow Rate FiO2 12/21/16 02:21 100 16 118/65 92 Nasal Cannula 2.0 12/21/16 02:02 127 14 91/54 92 Nasal Cannula 4.0 12/21/16 01:50 123 94 Nasal Cannula 2.0 12/21/16 01:46 100/64 12/21/16 01:45 138 92 Nasal Cannula 2.0 12/21/16 01:40 132 93 Nasal Cannula 2.0 12/21/16 01:40 129 16 90/54 94 Nasal Cannula 2.0 12/21/16 01:38 90/54 12/21/16 01:35 132 26 94 12/21/16 01:31 102/66 12/21/16 01:30 135 30 95 12/21/16 01:26 127 16 108/70 98 Nasal Cannula 2.0 12/21/16 01:04 121 16 95/62 100 Nasal Cannula 2.0 12/21/16 00:55 107 20 81/52 93 12/21/16 00:48 152 20 89/74 95 12/21/16 00:43 149 20 77/49 95 12/20/16 23:32 97 18 120/65 96 Room Air 12/20/16 21:39 94 18 179/88 99 Room Air 12/20/16 21:11 96 12/20/16 20:07 36.6 109 20 183/105 98 Room Air General Appearance: WD/WN, no apparent distress Head: normocephalic Neck: supple, no JVD Respiratory/Chest: chest non-tender, lungs clear Cardiovascular: regular rate, rhythm, no edema, no gallop, no JVD, no murmur Abdomen/GI: normal bowel sounds, non tender, soft, no organomegaly Back: + abnormal inspection (tenderness on lower back) Neurologic/Psych: no motor/sensory deficits, alert, normal mood/affect Skin: normal color, warm/dry, no rash Laboratory Results Last 24 Hours Test 12/20/16 21:05 12/20/16 21:35 Urine Color YELLOW Urine Appearance CLOUDY Urine pH 6.0 Urine Specific [place] 1.010 Urine Protein TRACE Urine Glucose (UA) NEG Urine Ketones NEG Urine Occult Blood 3+ Urine Nitrite POS Urine Bilirubin NEG Urine Urobilinogen NEG Urine Leukocyte Esterase LARGE Urine WBC (Auto) >30 /hpf Urine RBC (Auto) >30 /hpf Urine Hyaline Casts (Auto) /lpf Urine Epithelial Cells (Auto) 10-20 /lpf Urine Bacteria (Auto) 3+ Urine Pathogenic Casts /lpf White Blood Count 14.16 K/uL Red Blood Count 3.85 M/uL Hemoglobin 11.7 g/dL Hematocrit 35.5 % Mean Corpuscular Volume 92.2 fL Mean Corpuscular Hemoglobin 30.4 pg Mean Corpuscular Hemoglobin Concent 33.0 g/dl Platelet Count 193 K/uL Mean Platelet Volume 9.7 fL Neutrophils (%) (Auto) 71.7 % Lymphocytes (%) (Auto) 19.0 % Monocytes (%) (Auto) 7.1 % Eosinophils (%) (Auto) 1.5 % Basophils (%) (Auto) 0.2 % Neutrophils # (Auto) 10.15 K/uL Lymphocytes # (Auto) 2.69 K/uL Monocytes # (Auto) 1.01 K/uL Eosinophils # (Auto) 0.21 K/uL Basophils # (Auto) 0.03 K/uL RDW Standard Deviation 51.8 fL RDW Coefficient of Variation 15.3 % Immature Granulocyte % (Auto) 0.5 % Immature Granulocyte # (Auto) 0.07 K/uL Prothrombin Time 57.2 SECONDS Prothromb Time International Ratio 5.0 Activated Partial Thromboplast Time 50.6 SECONDS Partial Thromboplastin Ratio 1.9 Sodium Level 141 mmol/L Potassium Level 4.0 mmol/L Chloride Level 107 mmol/L Carbon Dioxide Level 26 mmol/L Anion Gap 8.0 mmol/L Blood Urea Nitrogen 18 mg/dl Creatinine 0.92 mg/dl Est Creatinine Clear Calc Drug Dose 51.0 ml/min Estimated GFR () 86.4 Estimated GFR (Non- 74.5 BUN/Creatinine Ratio 19.7 Random Glucose 112 mg/dl Lactic Acid Level 2.3 mmol/L Calcium Level 8.4 mg/dl Total Bilirubin 0.8 mg/dl Aspartate Amino Transf (AST/SGOT) 72 U/L Alanine Aminotransferase (ALT/SGPT) 39 U/L Alkaline Phosphatase 134 U/L Troponin I < 0.015 ng/ml Total Protein 7.2 gm/dl Albumin 2.3 gm/dl Globulin 4.9 gm/dl Albumin/Globulin Ratio 0.5 Lipase 205 U/L Assessment & Plan ABDOMEN AND PELVIS CT WITH IV CONTRAST CT DOSE: HISTORY: Pain ABD PAIN, POSS OBSTRUCTION, IV CONTRAST ONLY TECHNIQUE: Multiaxial CT images of the abdomen and pelvis were performed following the use of intravenous contrast. COMPARISON STUDY: 11/26/2016 FINDINGS: Bibasilar parenchymal infiltrates. Bilateral pleural effusions. Bowel pattern overall is nonobstructive. The described splenic laceration versus subcapsular infarct is similar. Liver again is uniform. Pancreas demonstrates moderate fatty replacement. Spleen shows a slight degree of distention. Patient has developed an enlarged left iliopsoas muscle as compared to the right. This potentially relates to hematoma.. No mass, there is also a potential developing destructive process involving the L2 and L3 vertebral bodies with involvement of the L2-L3 and to lesser extent L3-L4 intervertebral disc. This potentially represents disc as an osteomyelitis. This may be related to the left iliopsoas enlargement. PROCEDURE: Described right iliopsoas collection is similar. Bowel pattern again is nonobstructive. There is mild large enlargement of the left lateral pelvic sidewall musculature as compared to the right. This is nonspecific. There is a Haas catheter within the bladder. There is no significant free fluid within the pelvic cul-de-sac. IMPRESSION: 1. Nonobstructive bowel pattern. 2. Findings of a developing mass or bony destructive change involving the L3 and to a lesser extent L2 vertebral body and associated disc. 3. This is associated with a previously described collection of the right iliopsoas as well has interval enlargement of the left iliopsoas musculature. 4. This is highly suggestive of developing osteomyelitis and discitis of the L2 and L3 vertebral bodies as well as a minimum L2-L3 intervertebral disc. 5. The enlargement of the left iliopsoas potentially relates to extension of infectious process to that structure as well as the left lateral superior pelvic sidewall region. 6. Produces described infarct of the spleen considered stable IMP:collection of the right iliopsoas, unlikely abscess positive UA , UTI no surgical intervention at this point, I agree with hospitalist treatment repeat labs in am, will F/U thanks,
[2016-12-21] MEDS ORDERED: VANCOMYCIN CONSULT ACTIVE PRN (04:27)
[2016-12-21] MEDS ORDERED: PIPERACILL/TAZOBAC CONSULT ACTIVE PRN (04:30)
[2016-12-21 06:08] LABS: BASO % 0.2 %; BASO ABS # 0.02 K/uL (0-0.2); COMPLETE YES; EOS % 1.1 %; IG% 0.5 %; LYMPH % 19.7 %; LYMPH ABS # 2.59 K/uL (1.2-3.4); MEAN CELL VOLUME 91.5 fL (80-100); MEAN CORPUSCULAR HEMOGLOBIN 29.6 pg (25-34); MEAN CORPUSCULAR HGB CONC 32.3 g/dl (32-36); MEAN PLATELET VOLUME 9.4 fL (7.4-10.4); MONO % 6.3 %; NEUT % 72.2 %; PLATELET COUNT 191 K/uL (130-400); RED BLOOD COUNT 3.28 M/uL (4.7-6.1); WHITE BLOOD COUNT 13.15 K/uL (4.8-10.8)
[2016-12-21 06:15] LABS: INR 3.2 (0.9-1.1); PROTHROMBIN TIME (PATIENT) 35.4 SECONDS (9.0-12.0)
[2016-12-21] MEDS: PIPERACILL/TAZOBAC IV 4.5 GM in DEXTROSE 5% 100ML IV SCH ×3 (06:18→21:55)
[2016-12-21] MEDS: VANCOMYCIN INJ 1,000 MG in SODIUM CHLORIDE 0.9% 250ML 250 ML IV SCH (06:18)
[2016-12-21 06:46] LABS: BUN/CREATININE RATIO 18.1 (10-20); CALCIUM 7.4 mg/dl (8.5-10.1); CREATININE 0.83 mg/dl (0.60-1.40); POTASSIUM 4.1 mmol/L (3.5-5.1)
[2016-12-21] MEDS: DOCUSATE SODIUM/SENNA 50/8.6MG TAB PO SCH (07:45)
[2016-12-21] MEDS: METOPROLOL TARTRATE 25 MG TAB PO SCH ×2 (07:45→21:55)
[2016-12-21] MEDS: MoRPHine SULFATE 4 MG/ML 1 ML CARP\\VIAL IV PRN ×3 (07:45→21:56)
--- NOTE | 2016-12-21 09:19 | Progress Note ---
Internal Med Progress Note Date of Service: December 21, 2016. Provider Documentation: SUBJECTIVE: The patient was seen and examined Smiled at the beginning of our conversation-though he does not /understand German Denies any acte pain Will wait for the Daughter to get detailed history OBJECTIVE: Vital Signs-as noted below Exam: General-No apparent distress Eyes-normal ENT-normal Neck-supple Lungs-Clear to auscultate bilaterally Heart-Regular,no murmur Abdomen-Soft,mildly tender lower quadrants,no masses,bowel sound present Extremities-Trace edema bilaterally Neuro-AAOx3 Moves all limbs Lab data as noted below. 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 No acue issue DNR per family Disposition pending lives with daughters Vital Signs: Date Time Temp Pulse Resp B/P Pulse Ox O2 Delivery O2 Flow Rate FiO2 12/21/16 04:00 37.1 82 18 121/72 93 Nasal Cannula 2.0 12/21/16 03:25 37.1 89 18 125/64 93 Nasal Cannula 2.0 12/21/16 02:21 100 16 118/65 92 Nasal Cannula 2.0 12/21/16 02:02 127 14 91/54 92 Nasal Cannula 4.0 12/21/16 01:50 123 94 Nasal Cannula 2.0 12/21/16 01:46 100/64 12/21/16 01:45 138 92 Nasal Cannula 2.0 12/21/16 01:40 132 93 Nasal Cannula 2.0 12/21/16 01:40 129 16 90/54 94 Nasal Cannula 2.0 12/21/16 01:38 90/54 12/21/16 01:35 132 26 94 12/21/16 01:31 102/66 12/21/16 01:30 135 30 95 12/21/16 01:26 127 16 108/70 98 Nasal Cannula 2.0 12/21/16 01:04 121 16 95/62 100 Nasal Cannula 2.0 12/21/16 00:55 107 20 81/52 93 12/21/16 00:48 152 20 89/74 95 12/21/16 00:43 149 20 77/49 95 12/20/16 23:32 97 18 120/65 96 Room Air 12/20/16 21:39 94 18 179/88 99 Room Air 12/20/16 21:11 96 12/20/16 20:07 36.6 109 20 183/105 98 Room Air Lab Results: Results Past 24 Hours Test 12/20/16 21:05 12/20/16 21:35 12/21/16 06:00 Range/Units Urine Color YELLOW Urine Appearance CLOUDY CLEAR Urine pH 6.0 4.5-7.5 Urine Specific [place] 1.010 1.000-1.030 Urine Protein TRACE NEG Urine Glucose (UA) NEG NEG Urine Ketones NEG NEG Urine Occult Blood 3+ NEG Urine Nitrite POS NEG Urine Bilirubin NEG NEG Urine Urobilinogen NEG NEG Urine Leukocyte Esterase LARGE NEG Urine WBC (Auto) >30 0-5 /hpf Urine RBC (Auto) >30 0-4 /hpf Urine Hyaline Casts (Auto) 0-5 /lpf Urine Epithelial Cells (Auto) 10-20 0-5 /lpf Urine Bacteria (Auto) 3+ NEG Urine Pathogenic Casts 0 /lpf White Blood Count 14.16 13.15 4.8-10.8 K/uL Red Blood Count 3.85 3.28 4.7-6.1 M/uL Hemoglobin 11.7 9.7 14.0-18.0 g/dL Hematocrit 35.5 30.0 42-52 % Mean Corpuscular Volume 92.2 91.5 80-100 fL Mean Corpuscular Hemoglobin 30.4 29.6 25-34 pg Mean Corpuscular Hemoglobin Concent 33.0 32.3 32-36 g/dl Platelet Count 193 191 130-400 K/uL Mean Platelet Volume 9.7 9.4 7.4-10.4 fL Neutrophils (%) (Auto) 71.7 72.2 % Lymphocytes (%) (Auto) 19.0 19.7 % Monocytes (%) (Auto) 7.1 6.3 % Eosinophils (%) (Auto) 1.5 1.1 % Basophils (%) (Auto) 0.2 0.2 % Neutrophils # (Auto) 10.15 9.50 1.4-6.5 K/uL Lymphocytes # (Auto) 2.69 2.59 1.2-3.4 K/uL Monocytes # (Auto) 1.01 0.83 0.11-0.59 K/uL Eosinophils # (Auto) 0.21 0.14 0-0.5 K/uL Basophils # (Auto) 0.03 0.02 0-0.2 K/uL RDW Standard Deviation 51.8 51.6 36.4-46.3 fL RDW Coefficient of Variation 15.3 15.3 11.5-14.5 % Immature Granulocyte % (Auto) 0.5 0.5 % Immature Granulocyte # (Auto) 0.07 0.07 0.00-0.02 K/uL Prothrombin Time 57.2 35.4 9.0-12.0 SECONDS Prothromb Time International Ratio 5.0 3.2 0.9-1.1 Activated Partial Thromboplast Time 50.6 21.0-31.0 SECONDS Partial Thromboplastin Ratio 1.9 Sodium Level 141 143 136-145 mmol/L Potassium Level 4.0 4.1 3.5-5.1 mmol/L Chloride Level 107 112 98-107 mmol/L Carbon Dioxide Level 26 25 21-32 mmol/L Anion Gap 8.0 6.0 3-11 mmol/L Blood Urea Nitrogen 18 15 7-18 mg/dl Creatinine 0.92 0.83 0.60-1.40 mg/dl Est Creatinine Clear Calc Drug Dose 51.0 56.6 ml/min Estimated GFR () 86.4 91.7 Estimated GFR (Non- 74.5 79.1 BUN/Creatinine Ratio 19.7 18.1 10-20 Random Glucose 112 127 70-99 mg/dl Lactic Acid Level 2.3 1.1 0.4-2.0 mmol/L Calcium Level 8.4 7.4 8.5-10.1 mg/dl Total Bilirubin 0.8 0.2-1 mg/dl Aspartate Amino Transf (AST/SGOT) 72 15-37 U/L Alanine Aminotransferase (ALT/SGPT) 39 12-78 U/L Alkaline Phosphatase 134 45-117 U/L Troponin I < 0.015 0-0.045 ng/ml Total Protein 7.2 6.4-8.2 gm/dl Albumin 2.3 3.4-5.0 gm/dl Globulin 4.9 2.5-4.0 gm/dl Albumin/Globulin Ratio 0.5 0.9-2 Lipase 205 73-393 U/L Microbiology Results 12/20/16 Blood Culture, Received Pending 12/20/16 Blood Culture, Received Pending 12/20/16 Urine Culture, Received Pending
[2016-12-21 10:02] LABS: HEMATOCRIT 30.6 % (42-52)
[2016-12-21 10:20] LABS: INR 2.1 (0.9-1.1); PROTHROMBIN TIME (PATIENT) 23.4 SECONDS (9.0-12.0)
--- NOTE | 2016-12-21 12:27 | Medical Consult ---
Consultation Date of Consultation: December 21, 2016. Attending Physician: Juan Knutson M.D. Reason for Consultation: Osteomyelitis History of Present Illness Patient is an 86-year-old male who speaks only Z[place]ian who presented to the emergency department with complaints of increasing low back pain and abdominal pain beginning prior to admission. The patient has a daughter is with him today and is able to translate for the patient's visit. The patient explains that he had been having muscle spasms of his abdomen with any movement, and he was having severe pain in his back as well. He has not had any fever, sweats, chills, or nausea. He is however complaining of a hard, "rock" in his stomach prior to admission which comes and goes. It is also noted that the patient was admitted on 11/26/2016 for concerns of abdominal pain as well. At that time, the patient was noted to have MSSA growing in 1/2 blood cultures. This was deemed to be contamination. The patient was treated with IV antibiotic therapy during admission, but ultimately was discharged home on p.o. clindamycin for a few more days. The patient did also have an abdominal/pelvic CT during that admission which showed a 3 cm fluid collection in the right psoas muscle, concerning for abscess. He was also noted to have a large perfusion defect of the spleen likely consistent with splenic infarct. The patient was evaluated by General surgery and noted to need no surgical intervention at that time. Since admission, the patient's daughter state that he had not improved very much. He then worsened acutely prior to current admission. Since the current admission, the patient did have a repeat CT scan of the abdomen and pelvis along with CT scan of the thoracic and lumbar spine. His scan showed new changes involving the superior endplate of L3, inferior endplate of L2, and a superior endplate and disc L1/L2 consistent with possible diskitis. He was also noted to have a some destructive changes at L3 and L2 vertebral bodies consistent with possible osteomyelitis. The psoas muscle abscess was once again noted. Upon admission, the patient's white blood cell count was 14.16. His lactic acid was 2.3, AST was 72, and alkaline phosphatase was 134. The patient has a blood and urine cultures pending. 1/2 blood cultures is growing gram-negative bacilli. He is currently on IV vancomycin and Zosyn. Past Medical/Surgical History Medical Problems: (1) ARF (acute renal failure) Status: Acute (2) Atrial fibrillation with RVR Status: Acute (3) Discitis Status: Acute (4) Osteomyelitis Status: Acute (5) Pneumonia Status: Acute (6) Pyelonephritis Status: Acute (7) Splenic infarct Status: Acute (8) UTI (urinary tract infection) Status: Acute Medical Problems: (1) BPH (benign prostatic hyperplasia) (2) Chronic back pain (3) Diastolic CHF (4) PAF (paroxysmal atrial fibrillation) (5) Sepsis (6) Urinary retention Surgical Problems: (1) No pertinent past surgical history Family History Patient reports no known family medical history. Noncontributory Social History Smoking Status: Never Smoker Drug Use: none Marital Status: Housing Status: lives with family Occupation Status: retired Allergies Coded Allergies: No Known Allergies (Verified , 10/16/16) Home Medications Reported Home Medications Medications Dose Route/Sig Max Daily Dose Days Date Category Dose Instructions Clint 5MG/325MG (Acetaminophen/Hydrocodone Bitart) Tab 1 Tab PO HS PRN 10 11/29/16 Rx PRN PAIN Colace (Docusate Sodium) 100 Mg Cap 1 Cap PO BID PRN 15 11/26/16 Reported Senna-S (Sennosides-Docusate Sodium) 1 Tab Tab 1 Tab PO DAILY PRN 11/26/16 Reported Flomax (Tamsulosin Hcl) 0.4 Mg Cap 0.4 Mg PO DAILY 11/26/16 Reported Avodart (Dutasteride) 0.5 Mg Cap 0.5 Mg PO DAILY 11/26/16 Reported Coumadin (Warfarin Sod) 2.5 Mg Tab 0.5-1 Tab PO DAILY 11/26/16 Reported Nitrostat (Nitroglycerin) 0.4 Mg Tab 0.4 Mg UT PRN 11/26/16 Reported Lopressor (Metoprolol Tartrate) 25 Mg Tab 25 Mg PO BID 11/26/16 Reported Tylenol (Acetaminophen) 500 Mg Tab 500 Mg PO Q4 PRN 11/26/16 Reported Current Inpatient Medications Current Inpatient Medications Medications (Trade) Dose Ordered Sig/Malik Route Start Time Stop Time Status Last Admin Dose Admin Ioversol 111 ml 111 ml UD PRN IV 12/20/16 21:00 12/24/16 20:59 Diltiazem HCl/ Dextrose (Cardizem Inj/D5 100ml) 125 ml @ 5 mls/hr Q24H PRN IV 12/21/16 01:00 01/20/17 00:59 12/21/16 01:10 2.5 MLS/HR Vancomycin HCl 1 ea 1 ea UD PRN N/A 12/21/16 04:27 01/20/17 04:26 Sodium Chloride (Nss 1000ml) 1,000 ml @ 75 mls/hr [id number] IV 12/21/16 02:30 01/20/17 02:29 12/21/16 03:52 75 MLS/HR Morphine Sulfate (MoRPHine SULFATE INJ) 4 mg Q3H PRN IV 12/21/16 02:30 01/04/17 02:29 12/21/16 07:45 4 MG Acetaminophen (Tylenol Tab) 650 mg Q4H PRN PO 12/21/16 02:45 01/20/17 02:44 Metoprolol Tartrate (Lopressor Tab) 25 mg BID PO 12/21/16 09:00 01/20/17 08:59 12/21/16 07:45 25 MG Senna/Docusate Sodium (Senokot S Tab) 1 tab DAILY PO 12/21/16 09:00 01/20/17 08:59 12/21/16 07:45 1 TAB Miscellaneous Information (Order Awaiting Action) 1 ea QS N/A 12/21/16 08:00 01/20/17 07:59 Acetaminophen/ Hydrocodone Bitart (Clint 5/325 Tab) 1 tab Q6H PRN PO 12/21/16 02:45 01/04/17 02:44 Piperacillin Sod/ Tazobactam Sod 1 ea 1 ea UD PRN N/A 12/21/16 04:30 01/20/17 04:29 Piperacillin Sod/ Tazobactam Sod 4.5 gm/Dextrose 120 ml @ 30 mls/hr Q8H IV 12/21/16 06:00 02/01/17 05:59 12/21/16 06:18 30 MLS/HR Vancomycin HCl/ Sodium Chloride (Vancomycin Inj/ Nss 250ml) 270 ml @ 125 mls/hr Q18H IV 12/21/16 06:00 02/01/17 05:59 12/21/16 06:18 125 MLS/HR Review of Systems Constitutional: + fatigue, + sweats, + weakness, No fever Eyes: No worsening of vision ENT: No hearing loss Respiratory: + cough, No shortness of breath Cardiovascular: No chest pain Abdomen: + nausea, + pain, No diarrhea Musculoskeletal: + joint pain (low back), + muscle pain (low back), No swelling Genitourinary - Male: + problem reported (chronic indwelling [place]), No dysuria , No hematuria Integumentary: No itch, No rash Physical Exam Date Time Temp Pulse Resp B/P Pulse Ox O2 Delivery O2 Flow Rate FiO2 12/21/16 08:00 36.6 76 16 135/79 99 Nasal Cannula 3.0 12/21/16 08:00 94 Nasal Cannula 3.0 12/21/16 04:00 37.1 82 18 121/72 93 Nasal Cannula 2.0 12/21/16 03:25 37.1 89 18 125/64 93 Nasal Cannula 2.0 12/21/16 02:21 100 16 118/65 92 Nasal Cannula 2.0 12/21/16 02:02 127 14 91/54 92 Nasal Cannula 4.0 12/21/16 01:50 123 94 Nasal Cannula 2.0 12/21/16 01:46 100/64 12/21/16 01:45 138 92 Nasal Cannula 2.0 12/21/16 01:40 132 93 Nasal Cannula 2.0 12/21/16 01:40 129 16 90/54 94 Nasal Cannula 2.0 12/21/16 01:38 90/54 12/21/16 01:35 132 26 94 12/21/16 01:31 102/66 12/21/16 01:30 135 30 95 12/21/16 01:26 127 16 108/70 98 Nasal Cannula 2.0 12/21/16 01:04 121 16 95/62 100 Nasal Cannula 2.0 12/21/16 00:55 107 20 81/52 93 12/21/16 00:48 152 20 89/74 95 12/21/16 00:43 149 20 77/49 95 12/20/16 23:32 97 18 120/65 96 Room Air 12/20/16 21:39 94 18 179/88 99 Room Air 12/20/16 21:11 96 12/20/16 20:07 36.6 109 20 183/105 98 Room Air General Appearance: WD/WN, no apparent distress Head: normocephalic, atraumatic Eyes: normal inspection, sclerae normal ENT: hearing grossly normal Neck: supple, trachea midline Respiratory/Chest: chest non-tender, normal breath sounds, no respiratory distress, no accessory muscle use Cardiovascular: + tachycardia Abdomen/GI: normal bowel sounds, non tender Extremities/Musculoskelatal: normal inspection, no pedal edema Neurologic/Psych: alert, normal mood/affect Skin: normal color, warm/dry, no rash Laboratory Results LUMBAR SPINE CT CT DOSE: 943.06 mGy.cm HISTORY: Pain pain, posse fx TECHNIQUE: Multiaxial CT images of the lumbar spine were performed and reformatted in the sagittal and coronal plane without the use of contrast. COMPARISON: CT abdomen and pelvis dated 11/26/2016 and 10/16/2016 FINDINGS: Progressive developing destructive changes of the inferior endplate of L2, superior endplate of L3, with a somewhat progressive sclerosis of the associated L2 and L3 vertebral bodies. Paravertebral soft tissues show an associated soft tissue component enlarging the left iliopsoas musculature, with pre-existing potential abscess and or collection involving the right psoas muscle. This progressive change suggest the possibility of discitis with secondary osteomyelitis at the L2-L3 level with less prominent findings at L1-L2. There is no evidence for compression deformity at this time. Remaining vertebral bodies are unremarkable in terms stature. IMPRESSION: 1. Developing destructive changes involving the superior endplate of L3, inferior endplate of L2, with less prominent findings involving the superior endplate and associated disc at L1-L2.. 2. Progressive enlargement of the left iliopsoas muscle as compared to the prior study raising the possibility of surrounding soft tissue component and/or secondary focus of hemorrhage or developing abscess formation. 3. Pre-existing abscess of the right so as to muscle similar in appearance to the prior CT abdomen and pelvis. 4. The appearance is most consistent with that of discitis at L2-L3 and to a lesser extent L1-L2 5. A destructive changes and associated sclerosis suggest secondary osteomyelitis involving the superior aspect of the L3 vertebral body as well as the bulk of the L2 vertebral body. 6. The surrounding soft tissue changes of the psoas musculature suggests developing and or pre-existing soft tissue inflammatory or infectious-type change, all of which are progressive compared to the prior study. 7. No evidence for a compression deformity. RUN DATE: 12/21/16 [facility] LAB PAGE 1 RUN TIME: 2803 Specimen Inquiry PATIENT: SHARAD LEE LOC: [facility] U # : [id number] AGE/SX: 86/M ROOM: E107 REG : 12/21/[address]: Juan Knutson M.D. : 1930 BED: 1 DIS : STATUS: ADM IN TLOC: SPEC #: [id number] TROY: 12/20/16 STATUS: RES REQ #: [id number] RECD: 12/20/[address]: Edvin Ellis M.D. SOURCE: BLOOD ENTR: 12/20/16-2220 [facility] DR: Tamara Toribio D.O. SPDESC: ORDERED: BLOOD CULTURE Procedure Result Verified Site BLD CULT Preliminary 12/21/16-1254 Organism 1 GRAM NEGATIVE BACILLI SENS SENSITIVITIES DEPENDENT ON FURTHER IDENTIFICATION Phoned Positive Blood Culture Gram Stain Report to HUBERT PARKER on 12/21/16 At 1133 By JANET. Results were verbalized back to JANET. Item Value Date Time Blood Culture Received 12/20/16 2255 Blood Pending Blood Culture - Preliminary Resulted 12/20/16 2250 Blood Gram Negative Bacilli Urine Culture Received 12/20/16 2105 Urine,Catheterized Pending Last 24 Hours Test 12/20/16 21:05 12/20/16 21:35 12/21/16 06:00 12/21/16 09:55 Urine Color YELLOW Urine Appearance CLOUDY Urine pH 6.0 Urine Specific [place] 1.010 Urine Protein TRACE Urine Glucose (UA) NEG Urine Ketones NEG Urine Occult Blood 3+ Urine Nitrite POS Urine Bilirubin NEG Urine Urobilinogen NEG Urine Leukocyte Esterase LARGE Urine WBC (Auto) >30 /hpf Urine RBC (Auto) >30 /hpf Urine Hyaline Casts (Auto) /lpf Urine Epithelial Cells (Auto) 10-20 /lpf Urine Bacteria (Auto) 3+ Urine Pathogenic Casts /lpf White Blood Count 14.16 K/uL 13.15 K/uL Red Blood Count 3.85 M/uL 3.28 M/uL Hemoglobin 11.7 g/dL 9.7 g/dL 9.7 g/dL Hematocrit 35.5 % 30.0 % 30.6 % Mean Corpuscular Volume 92.2 fL 91.5 fL Mean Corpuscular Hemoglobin 30.4 pg 29.6 pg Mean Corpuscular Hemoglobin Concent 33.0 g/dl 32.3 g/dl Platelet Count 193 K/uL 191 K/uL Mean Platelet Volume 9.7 fL 9.4 fL Neutrophils (%) (Auto) 71.7 % 72.2 % Lymphocytes (%) (Auto) 19.0 % 19.7 % Monocytes (%) (Auto) 7.1 % 6.3 % Eosinophils (%) (Auto) 1.5 % 1.1 % Basophils (%) (Auto) 0.2 % 0.2 % Neutrophils # (Auto) 10.15 K/uL 9.50 K/uL Lymphocytes # (Auto) 2.69 K/uL 2.59 K/uL Monocytes # (Auto) 1.01 K/uL 0.83 K/uL Eosinophils # (Auto) 0.21 K/uL 0.14 K/uL Basophils # (Auto) 0.03 K/uL 0.02 K/uL RDW Standard Deviation 51.8 fL 51.6 fL RDW Coefficient of Variation 15.3 % 15.3 % Immature Granulocyte % (Auto) 0.5 % 0.5 % Immature Granulocyte # (Auto) 0.07 K/uL 0.07 K/uL Prothrombin Time 57.2 SECONDS 35.4 SECONDS 23.4 SECONDS Prothromb Time International Ratio 5.0 3.2 2.1 Activated Partial Thromboplast Time 50.6 SECONDS Partial Thromboplastin Ratio 1.9 Sodium Level 141 mmol/L 143 mmol/L Potassium Level 4.0 mmol/L 4.1 mmol/L Chloride Level 107 mmol/L 112 mmol/L Carbon Dioxide Level 26 mmol/L 25 mmol/L Anion Gap 8.0 mmol/L 6.0 mmol/L Blood Urea Nitrogen 18 mg/dl 15 mg/dl Creatinine 0.92 mg/dl 0.83 mg/dl Est Creatinine Clear Calc Drug Dose 51.0 ml/min 56.6 ml/min Estimated GFR () 86.4 91.7 Estimated GFR (Non- 74.5 79.1 BUN/Creatinine Ratio 19.7 18.1 Random Glucose 112 mg/dl 127 mg/dl Lactic Acid Level 2.3 mmol/L 1.1 mmol/L Calcium Level 8.4 mg/dl 7.4 mg/dl Total Bilirubin 0.8 mg/dl Aspartate Amino Transf (AST/SGOT) 72 U/L Alanine Aminotransferase (ALT/SGPT) 39 U/L Alkaline Phosphatase 134 U/L Troponin I < 0.015 ng/ml Total Protein 7.2 gm/dl Albumin 2.3 gm/dl Globulin 4.9 gm/dl Albumin/Globulin Ratio 0.5 Lipase 205 U/L Assessment & Plan Patient with probable osteomyelitis and discitis of the lumbar spine along with ileopsoas abscess and gram negative bacteremia along with recent MSSA bacteremia. 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 On 11/26/16 the patient was treated for concern of psoas abscess with 2 days of IV therapy and discharged on PO Clindamycin with no surgical intervention at that time. He did have MSSA grow from 1/2 blood cultures during previous admission. Blood cultures now growing GNB in 1/2 culture and urine culture is pending. Patient is on Vancomycin and Zosyn. This is appropriate pending culture results. Recommend ortho spine consultation. Will order echocardiogram and repeat blood cultures. Feel that the patient may ultimately require drainage of psoas abscess , and may require transfer to tertiary care if he does not improve. We will follow. PROVIDER ADDENDUM: Patient examined and reviewed with Ms. Serna. Agree with above assessment.
--- NOTE | 2016-12-21 14:47 | Pharmacy Progress Note ---
Pharmacy Abx Initial Consult Date of Service December 21, 2016. Pharmacy Dosing Scope Date of Consult: 12/20/16 Consultation requested by: Dr. Solomon Pharmacy is consulted to initiate VANCOMYCIN and ZOSYN IV therapy, order appropriate labs and adjust drug dose/frequency. Subjective The patient is a 86 year old male admitted on December 21, 2016 at 02:25 with c/o of low back and abdominal pain. 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 Objective Height (Feet): 5 Height (Inches): 6.00 Weight (Kilograms): 70.700 Vital Signs (Past 12Hrs) Vital Signs Past 12 Hours Date Time Temp Pulse Resp B/P Pulse Ox O2 Delivery O2 Flow Rate FiO2 12/21/16 12:00 36.9 75 14 141/83 97 Nasal Cannula 3.0 12/21/16 12:00 97 Nasal Cannula 3.0 12/21/16 08:00 36.6 76 16 135/79 99 Nasal Cannula 3.0 12/21/16 08:00 94 Nasal Cannula 3.0 12/21/16 04:00 37.1 82 18 121/72 93 Nasal Cannula 2.0 12/21/16 03:25 37.1 89 18 125/64 93 Nasal Cannula 2.0 Lab Results (24Hrs) Test 12/20/16 21:05 12/20/16 21:35 12/21/16 06:00 12/21/16 09:55 Urine Color YELLOW Urine Appearance CLOUDY (CLEAR) Urine pH 6.0 (4.5-7.5) Urine Specific [place] 1.010 (1.000-1.030) Urine Protein TRACE (NEG) Urine Glucose (UA) NEG (NEG) Urine Ketones NEG (NEG) Urine Occult Blood 3+ (NEG) Urine Nitrite POS (NEG) Urine Bilirubin NEG (NEG) Urine Urobilinogen NEG (NEG) Urine Leukocyte Esterase LARGE (NEG) Urine WBC (Auto) >30 /hpf (0-5) Urine RBC (Auto) >30 /hpf (0-4) Urine Hyaline Casts (Auto) /lpf (0-5) Urine Epithelial Cells (Auto) 10-20 /lpf (0-5) Urine Bacteria (Auto) 3+ (NEG) Urine Pathogenic Casts /lpf (0) White Blood Count 14.16 K/uL (4.8-10.8) 13.15 K/uL (4.8-10.8) Red Blood Count 3.85 M/uL (4.7-6.1) 3.28 M/uL (4.7-6.1) Hemoglobin 11.7 g/dL (14.0-18.0) 9.7 g/dL (14.0-18.0) 9.7 g/dL (14.0-18.0) Hematocrit 35.5 % (42-52) 30.0 % (42-52) 30.6 % (42-52) Mean Corpuscular Volume 92.2 fL (80-100) 91.5 fL (80-100) Mean Corpuscular Hemoglobin 30.4 pg (25-34) 29.6 pg (25-34) Mean Corpuscular Hemoglobin Concent 33.0 g/dl (32-36) 32.3 g/dl (32-36) Platelet Count 193 K/uL (130-400) 191 K/uL (130-400) Mean Platelet Volume 9.7 fL (7.4-10.4) 9.4 fL (7.4-10.4) Neutrophils (%) (Auto) 71.7 % 72.2 % Lymphocytes (%) (Auto) 19.0 % 19.7 % Monocytes (%) (Auto) 7.1 % 6.3 % Eosinophils (%) (Auto) 1.5 % 1.1 % Basophils (%) (Auto) 0.2 % 0.2 % Neutrophils # (Auto) 10.15 K/uL (1.4-6.5) 9.50 K/uL (1.4-6.5) Lymphocytes # (Auto) 2.69 K/uL (1.2-3.4) 2.59 K/uL (1.2-3.4) Monocytes # (Auto) 1.01 K/uL (0.11-0.59) 0.83 K/uL (0.11-0.59) Eosinophils # (Auto) 0.21 K/uL (0-0.5) 0.14 K/uL (0-0.5) Basophils # (Auto) 0.03 K/uL (0-0.2) 0.02 K/uL (0-0.2) RDW Standard Deviation 51.8 fL (36.4-46.3) 51.6 fL (36.4-46.3) RDW Coefficient of Variation 15.3 % (11.5-14.5) 15.3 % (11.5-14.5) Immature Granulocyte % (Auto) 0.5 % 0.5 % Immature Granulocyte # (Auto) 0.07 K/uL (0.00-0.02) 0.07 K/uL (0.00-0.02) Activated Partial Thromboplast Time 50.6 SECONDS (21.0-31.0) Partial Thromboplastin Ratio 1.9 Sodium Level 141 mmol/L (136-145) 143 mmol/L (136-145) Potassium Level 4.0 mmol/L (3.5-5.1) 4.1 mmol/L (3.5-5.1) Chloride Level 107 mmol/L (98-107) 112 mmol/L (98-107) Carbon Dioxide Level 26 mmol/L (21-32) 25 mmol/L (21-32) Anion Gap 8.0 mmol/L (3-11) 6.0 mmol/L (3-11) Blood Urea Nitrogen 18 mg/dl (7-18) 15 mg/dl (7-18) Creatinine 0.92 mg/dl (0.60-1.40) 0.83 mg/dl (0.60-1.40) Est Creatinine Clear Calc Drug Dose 51.0 ml/min 56.6 ml/min Estimated GFR () 86.4 91.7 Estimated GFR (Non- 74.5 79.1 BUN/Creatinine Ratio 19.7 (10-20) 18.1 (10-20) Random Glucose 112 mg/dl (70-99) 127 mg/dl (70-99) Lactic Acid Level 2.3 mmol/L (0.4-2.0) 1.1 mmol/L (0.4-2.0) Calcium Level 8.4 mg/dl (8.5-10.1) 7.4 mg/dl (8.5-10.1) Total Bilirubin 0.8 mg/dl (0.2-1) Aspartate Amino Transf (AST/SGOT) 72 U/L (15-37) Alanine Aminotransferase (ALT/SGPT) 39 U/L (12-78) Alkaline Phosphatase 134 U/L (45-117) Troponin I < 0.015 ng/ml (0-0.045) Total Protein 7.2 gm/dl (6.4-8.2) Albumin 2.3 gm/dl (3.4-5.0) Globulin 4.9 gm/dl (2.5-4.0) Albumin/Globulin Ratio 0.5 (0.9-2) Lipase 205 U/L (73-393) Prothrombin Time 35.4 SECONDS (9.0-12.0) 23.4 SECONDS (9.0-12.0) Prothromb Time International Ratio 3.2 (0.9-1.1) 2.1 (0.9-1.1) Micro Results Date/Time Source Procedure Growth Status 12/21/16 12:50 Blood Blood Culture Pending Received 12/21/16 12:43 Blood Blood Culture Pending Received 12/20/16 22:55 Blood Blood Culture Pending Received 12/20/16 22:50 Blood Blood Culture - Preliminary Gram Negative Bacilli Resulted 12/20/16 21:05 Urine,Catheterized Urine Culture - Final GREATER THAN THREE TYPES OF ORGANISMS... 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) * Antimicrobial use within the last 90 days (Primaxin, Zosyn, Vancomycin and Clindamycin this month) Assessment & Plan Assessment * 86 year old male for lumbar spine osteomyelitis/discitis, psoas abscess, gram neg rosie bacteremia and the possibility of endocarditis is being considered * Gram neg rods are growing in 1 of 2 blood cx's (receiving Zosyn - ID is consulted and aware) Plan Vancomycin IV * Loading dose: 1000 mg (~14 mg/kg) - was not a full loading dose; maintenance dose will be started early * Maintenance dose: 1000 mg IV (14 mg/kg) every 18 hours - with the first dose given ~7 hrs after the 1gm dose in the ER * Goal trough level for osteomyelitis/discitis : 15 to 20 mcg/mL * Trough level ordered for 12/23/16 Piperacillin/tazobactam * 4.5 g bolus administered over 30 minutes, then 4.5 g IV extended infusion every 8 hours for CrCl greater than 20 mL/min OR every 12 hours for CrCl 20 mL/ min or less and dialysis. * Aggressive dosing selected due to critically ill status and site of infxn Pharmacy will continue to follow and will adjust dose/frequency as necessary. Thank you.
[2016-12-22] VITALS (8 sets, daily range): BP systolic 124–164; BP diastolic 68–92; PULSE 72–85; TEMP 36.6–36.9; O2SAT 90–99
[2016-12-22] MEDS: VANCOMYCIN INJ 1,000 MG in SODIUM CHLORIDE 0.9% 250ML 250 ML IV SCH ×2 (00:44→18:06)
[2016-12-22] MEDS: MoRPHine SULFATE 4 MG/ML 1 ML CARP\\VIAL IV PRN ×3 (02:25→13:38)
--- NOTE | 2016-12-22 05:42 | Surgery Progress Note ---
Surgery Progress Note Date of Service December 22, 2016. Subjective awake, alert, smiles no acute chgs, afeb, vitals stable, positive blood cultures- reculture urine Objective Vital Signs: Date Time Temp Pulse Resp B/P Pulse Ox O2 Delivery O2 Flow Rate FiO2 12/22/16 04:00 94 Nasal Cannula 3.0 12/22/16 00:01 74 16 135/82 96 Nasal Cannula 3.0 12/21/16 23:59 92 Nasal Cannula 3.0 12/21/16 22:33 95 Nasal Cannula 3.0 12/21/16 20:00 36.7 79 10 145/83 95 3.0 12/21/16 16:00 93 Nasal Cannula 3.0 12/21/16 16:00 36.6 94 14 134/69 93 Nasal Cannula 3.0 12/21/16 12:00 36.9 75 14 141/83 97 Nasal Cannula 3.0 12/21/16 12:00 97 Nasal Cannula 3.0 12/21/16 08:00 36.6 76 16 135/79 99 Nasal Cannula 3.0 12/21/16 08:00 94 Nasal Cannula 3.0 General Appearance: no apparent distress Respiratory/Chest: no respiratory distress Abdomen: non tender, soft Laboratory Results: Results Past 24 Hours Test 12/21/16 06:00 12/21/16 09:55 12/22/16 04:44 Range/Units White Blood Count 13.15 4.8-10.8 K/uL Red Blood Count 3.28 4.7-6.1 M/uL Hemoglobin 9.7 9.7 14.0-18.0 g/dL Hematocrit 30.0 30.6 42-52 % Mean Corpuscular Volume 91.5 80-100 fL Mean Corpuscular Hemoglobin 29.6 25-34 pg Mean Corpuscular Hemoglobin Concent 32.3 32-36 g/dl Platelet Count 191 130-400 K/uL Mean Platelet Volume 9.4 7.4-10.4 fL Neutrophils (%) (Auto) 72.2 % Lymphocytes (%) (Auto) 19.7 % Monocytes (%) (Auto) 6.3 % Eosinophils (%) (Auto) 1.1 % Basophils (%) (Auto) 0.2 % Neutrophils # (Auto) 9.50 1.4-6.5 K/uL Lymphocytes # (Auto) 2.59 1.2-3.4 K/uL Monocytes # (Auto) 0.83 0.11-0.59 K/uL Eosinophils # (Auto) 0.14 0-0.5 K/uL Basophils # (Auto) 0.02 0-0.2 K/uL RDW Standard Deviation 51.6 36.4-46.3 fL RDW Coefficient of Variation 15.3 11.5-14.5 % Immature Granulocyte % (Auto) 0.5 % Immature Granulocyte # (Auto) 0.07 0.00-0.02 K/uL Prothrombin Time 35.4 23.4 9.0-12.0 SECONDS Prothromb Time International Ratio 3.2 2.1 0.9-1.1 Sodium Level 143 136-145 mmol/L Potassium Level 4.1 3.5-5.1 mmol/L Chloride Level 112 98-107 mmol/L Carbon Dioxide Level 25 21-32 mmol/L Anion Gap 6.0 3-11 mmol/L Blood Urea Nitrogen 15 7-18 mg/dl Creatinine 0.83 0.60-1.40 mg/dl Est Creatinine Clear Calc Drug Dose 56.6 ml/min Estimated GFR () 91.7 Estimated GFR (Non- 79.1 BUN/Creatinine Ratio 18.1 10-20 Random Glucose 127 70-99 mg/dl Lactic Acid Level 1.1 0.4-2.0 mmol/L Calcium Level 7.4 8.5-10.1 mg/dl Microbiology Results 12/21/16 Blood Culture, Received Pending 12/21/16 Blood Culture, Received Pending Assessment & Plan 12/22/16- pt appears to be comfortable, positive blood cultures, reculture urine bilateral psoas chgs- infection/ hemorrhage assoc with probable osteomyelitis of vertebral bodies. Improved from admission. Do not plan any surgical intervention here- if does not improve, would need tertiary care.
[2016-12-22 06:03] LABS: BASO % 0.2 %; BASO ABS # 0.02 K/uL (0-0.2); COMPLETE YES; HEMATOCRIT 29.4 % (42-52); IG% 0.7 %; LYMPH % 24.5 %; LYMPH ABS # 3.11 K/uL (1.2-3.4); MEAN CELL VOLUME 93.6 fL (80-100); MEAN CORPUSCULAR HEMOGLOBIN 30.6 pg (25-34); MEAN CORPUSCULAR HGB CONC 32.7 g/dl (32-36); MEAN PLATELET VOLUME 9.6 fL (7.4-10.4); MONO % 9.4 %; NEUT % 63.2 %; PLATELET COUNT 179 K/uL (130-400); RED BLOOD COUNT 3.14 M/uL (4.7-6.1); WHITE BLOOD COUNT 12.69 K/uL (4.8-10.8)
[2016-12-22 06:13] LABS: INR 1.3 (0.9-1.1); PROTHROMBIN TIME (PATIENT) 13.6 SECONDS (9.0-12.0)
[2016-12-22] MEDS: PIPERACILL/TAZOBAC IV 4.5 GM in DEXTROSE 5% 100ML IV SCH ×3 (06:17→22:57)
[2016-12-22 06:39] LABS: BUN/CREATININE RATIO 16.4 (10-20); CALCIUM 7.6 mg/dl (8.5-10.1)
[2016-12-22] MEDS: DOCUSATE SODIUM/SENNA 50/8.6MG TAB PO SCH (08:04)
[2016-12-22] MEDS: SODIUM CHLORIDE 0.9% 1000ML 1,000 ML IV SCH ×2 (08:04→17:39)
[2016-12-22] MEDS: METOPROLOL TARTRATE 25 MG TAB PO SCH ×2 (08:04→18:59)
--- NOTE | 2016-12-22 09:41 | ECHOCARDIOGRAM REPORT ---
*NOTICE TO RECEIVING REPUBLICAN AGENCY This information is strictly Confidential and protected under [place] law. [place] law prohibits you from making any further disclosure of this information unless further disclosure is expressly permitted by the written consent of the person to whom it pertains or is authorized by law. A general authorization for the release of medical or other information is not sufficient for this purpose. Hospital accepts no responsibility if the information is made available to any other person, INCLUDING THE PATIENT. Interpretation Summary * Name: SHARAD LEE Study Date: 12/21/2016 02:31 PM BP: 141/83 mmHg * [facility] HR: 75 * : 1930 (M/d/y) Gender: Male Height: 66 in * Age: 86 yrs Ethnicity: [place] Weight: 155 lb * Ordering Physician: Joy Serna * Referring Physician: Self, Referred * Performed By: Ofelia Maier RDCS * * Reason For Study: Endocarditis * BSA: 1.8 m2 * -- Conclusions -- * The left ventricle is normal in size. * The left ventricular wall motion is normal. * Ejection Fraction = 65-70%. * The aortic valve is moderately calcified with restricted mobility * No hemodynamically significant valvular aortic stenosis. * Trace aortic regurgitation. * There is mild to moderate mitral annular calcification. * There is moderate mitral regurgitation. * There is mild tricuspid regurgitation. * Right ventricular systolic pressure is elevated at 40-50mmHg. * Study is technically insufficient to exclude vegetation Procedure Details * A two-dimensional transthoracic echocardiogram was performed. * A complete two-dimensional transthoracic echocardiogram was performed (2D, M-mode, Doppler and color flow Doppler). Left Ventricle * The left ventricle is normal in size. * There is moderate concentric left ventricular hypertrophy. * Left ventricular systolic function is normal. * Ejection Fraction = 65-70%. * The left ventricular wall motion is normal. Right Ventricle * The right ventricle is normal in size and function. Atria * The left atrium is mildly dilated. * Right atrial size is normal. * No ASD detected; PFO is not assessed. Mitral Valve * There is mild to moderate mitral annular calcification. * There is no mitral valve stenosis. * There is moderate mitral regurgitation. Tricuspid Valve * The tricuspid valve anatomy is normal. * There is no tricuspid stenosis. * There is mild tricuspid regurgitation. * Right ventricular systolic pressure is elevated at 40-50mmHg. Aortic Valve * The aortic valve is trileaflet. * The aortic valve is moderately calcified with restricted mobility * No hemodynamically significant valvular aortic stenosis. * Trace aortic regurgitation. Pulmonic Valve * The pulmonic valve is not well visualized. Great Vessels * The aortic root is normal size. Pericardium/Pleural * There is no pericardial effusion. Great Vessels * Normal inferior vena cava diameter and respiratory variation suggests normal central venous pressure. Doppler Measurements and Calculations Ao V2 max 168.3 cm/sec Ao max PG 11.3 mmHg Ao max PG (full) 3.4 mmHg AI max stephanie 328.5 cm/sec AI max PG 43.2 mmHg AI dec slope 205.6 cm/sec\S\2 AI P1/2t 468.0 msec LV V1 max PG 8.0 mmHg LV V1 max 141.2 cm/sec PA V2 max 88.2 cm/sec PA max PG 3.1 mmHg PA acc slope 655.9 cm/sec\S\2 PA acc time 0.10 sec PI max stephanie 219.9 cm/sec PI max PG 19.3 mmHg PI dec slope 200.3 cm/sec\S\2 PI P1/2t 321.6 msec TR max stephanie 305.4 cm/sec PA pr(Accel) 34.6 mmHg
[2016-12-22] MEDS ORDERED: NURSING VERBAL MED ORDER ONE (10:00)
[2016-12-22] MEDS ORDERED: POLYETHYLENE (MIRALAX) 17 GM PACK PO ONE (10:15)
--- NOTE | 2016-12-22 10:58 | ORTHOPEDIC CONSULTATION ---
DATE OF CONSULTATION: 12/22/2016 DATE OF CONSULTATION: 12/22/2016. CHIEF COMPLAINT: Back pain. HISTORY OF PRESENT ILLNESS: This is a 86-year-old male who presents to the Emergency Department with increasing back pain and abdominal pain. He is of [place] descent and only speaks Martiniquais. Makes history taking somewhat difficult this morning. Most of my history rather is obtained from previous notes. He does have evidence of positive blood cultures and CAT scan showing significant suspicion for psoas abscess and marked bony erosion at L1-2, L2-3 disc spaces consistent with discitis and osteomyelitis. PHYSICAL EXAMINATION: On exam today he is in chair at bedside, appears to have reasonable motor function. However, again difficult secondary to language barriers. ASSESSMENT: Most likely discitis at L1-L2, L2-L3. PLAN: At this time, if possible I would like to obtain an MRI of the lumbar spine for further detailed anatomy, particularly in the canal. Ultimately, however, the extent of this disease is certainly outside of my capabilities as a spine surgeon at this institution. We may need to consider tertiary care if surgical debridement is ultimately warranted.
[2016-12-22] MEDS ORDERED: MoRPHine SULFATE IR 15 MG TAB (IMMEDIATE RELEASE) PO PRN (14:15)
--- NOTE | 2016-12-22 14:28 | Progress Note ---
Internal Med Progress Note Date of Service: December 22, 2016. Provider Documentation: SUBJECTIVE: The patient was seen and examined in presence of the Daughter Complains of Back pain without radiation and wants pain medication Denies any Abdominal pain,nausea and or vomiting Feels a lot better since admission OBJECTIVE: Vital Signs-as noted below Exam: General-No apparent distress OOB in a chair Eyes-normal ENT-normal Neck-supple Lungs-Clear to auscultate bilaterally Heart-Regular,no murmur Abdomen-Soft,mildly tender lower quadrants,no masses,bowel sound present Extremities-Trace edema bilaterally No significant tenderness in lower Lumbar spine Neuro-AAOx3 Moves all limbs Lab data as noted below. 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 HEMATOMA -new lesion on Right side and old collection on left -favors Hematoma -No fever,chills -Antibiotics as noted above - INR 5 on admission -INR 1.3 today -No more anticoagulation -Detailed discussion with the Daughter A FIB Noted to be in RVR -Did not take his BB yesterday -Patient received IV Cardizem -Continue with Usual dose of BB HISTORY OF RECENT NSTEMI WITH CHF denies chest pain no acue CHF CONTINUE CURRENT MEDICATIONS CHRONIC URINARY RETENTION, MURRAY CATH change Murray hold Tamsulosin for low BP Await repeat Urine culture Blood cultures positive for Gm Negative Bacilli HISTORY OF DVT INR supratherapeutic Likely to Discontinue Coumadin from now 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 No acute issue and no surgery DNR per family Disposition pending lives with daughters Has had a long discussion with the Daughter and the Son-in-law Discussed about the current medical issues and the possible outcome with current management and recommendation The family members do not want any surgery They stressed on strong oral pain medication and possible rehab placement on improvement If the condition deteriorates will need to address accordingly Vital Signs: Date Time Temp Pulse Resp B/P Pulse Ox O2 Delivery O2 Flow Rate FiO2 12/22/16 11:52 Nasal Cannula 3.0 12/22/16 11:30 36.8 72 16 126/68 99 Nasal Cannula 3.0 12/22/16 07:30 36.6 78 16 142/77 94 Nasal Cannula 2.0 12/22/16 07:30 Nasal Cannula 3.0 12/22/16 04:01 36.6 79 10 164/92 90 Nasal Cannula 3.0 12/22/16 04:00 94 Nasal Cannula 3.0 12/22/16 00:01 74 16 135/82 96 Nasal Cannula 3.0 12/21/16 23:59 92 Nasal Cannula 3.0 12/21/16 22:33 95 Nasal Cannula 3.0 12/21/16 20:00 36.7 79 10 145/83 95 3.0 12/21/16 16:00 93 Nasal Cannula 3.0 12/21/16 16:00 36.6 94 14 134/69 93 Nasal Cannula 3.0 Lab Results: Results Past 24 Hours Test 12/22/16 05:46 Range/Units White Blood Count 12.69 4.8-10.8 K/uL Red Blood Count 3.14 4.7-6.1 M/uL Hemoglobin 9.6 14.0-18.0 g/dL Hematocrit 29.4 42-52 % Mean Corpuscular Volume 93.6 80-100 fL Mean Corpuscular Hemoglobin 30.6 25-34 pg Mean Corpuscular Hemoglobin Concent 32.7 32-36 g/dl Platelet Count 179 130-400 K/uL Mean Platelet Volume 9.6 7.4-10.4 fL Neutrophils (%) (Auto) 63.2 % Lymphocytes (%) (Auto) 24.5 % Monocytes (%) (Auto) 9.4 % Eosinophils (%) (Auto) 2.0 % Basophils (%) (Auto) 0.2 % Neutrophils # (Auto) 8.02 1.4-6.5 K/uL Lymphocytes # (Auto) 3.11 1.2-3.4 K/uL Monocytes # (Auto) 1.19 0.11-0.59 K/uL Eosinophils # (Auto) 0.26 0-0.5 K/uL Basophils # (Auto) 0.02 0-0.2 K/uL RDW Standard Deviation 53.7 36.4-46.3 fL RDW Coefficient of Variation 15.7 11.5-14.5 % Immature Granulocyte % (Auto) 0.7 % Immature Granulocyte # (Auto) 0.09 0.00-0.02 K/uL Prothrombin Time 13.6 9.0-12.0 SECONDS Prothromb Time International Ratio 1.3 0.9-1.1 Sodium Level 144 136-145 mmol/L Potassium Level 4.0 3.5-5.1 mmol/L Chloride Level 112 98-107 mmol/L Carbon Dioxide Level 25 21-32 mmol/L Anion Gap 7.0 3-11 mmol/L Blood Urea Nitrogen 16 7-18 mg/dl Creatinine 1.00 0.60-1.40 mg/dl Est Creatinine Clear Calc Drug Dose 46.9 ml/min Estimated GFR () 78.1 Estimated GFR (Non- 67.4 BUN/Creatinine Ratio 16.4 10-20 Random Glucose 109 70-99 mg/dl Calcium Level 7.6 8.5-10.1 mg/dl Microbiology Results 12/22/16 Urine Culture, Received Pending
[2016-12-22] MEDS: DOCUSATE SODIUM 100 MG CAP PO SCH (19:00)
[2016-12-23] VITALS (9 sets, daily range): BP systolic 82–152; BP diastolic 46–79; PULSE 71–136; TEMP 36.3–37; O2SAT 91–99
[2016-12-23] MEDS: PIPERACILL/TAZOBAC IV 4.5 GM in DEXTROSE 5% 100ML IV SCH ×3 (05:48→21:28)
[2016-12-23] MEDS ORDERED: DILTIAZEM HCL 5 MG/ML 5 ML VIAL IV STA (05:57)
--- NOTE | 2016-12-23 06:08 | Surgery Progress Note ---
Surgery Progress Note Date of Service December 23, 2016. Subjective afib during pm no other acute chgs noted Objective Vital Signs: Date Time Temp Pulse Resp B/P Pulse Ox O2 Delivery O2 Flow Rate FiO2 12/23/16 04:00 Nasal Cannula 3.0 12/23/16 03:24 36.9 85 18 152/79 91 Nasal Cannula 3.0 12/23/16 00:07 Nasal Cannula 3.0 12/22/16 23:37 36.9 79 19 124/76 94 Nasal Cannula 3.0 12/22/16 20:00 Nasal Cannula 3.0 12/22/16 19:52 36.6 85 12 136/75 95 Nasal Cannula 2.0 12/22/16 16:00 Nasal Cannula 3.0 12/22/16 16:00 36.6 84 16 144/81 99 Nasal Cannula 3.0 12/22/16 11:52 Nasal Cannula 3.0 12/22/16 11:30 36.8 72 16 126/68 99 Nasal Cannula 3.0 12/22/16 07:30 36.6 78 16 142/77 94 Nasal Cannula 2.0 12/22/16 07:30 Nasal Cannula 3.0 Laboratory Results: Results Past 24 Hours Test 12/23/16 04:44 12/23/16 05:35 Range/Units Assessment & Plan 12/23/16- plan for MRI spine noted and also family wishes for no surgical intervention. cont to follow pts progress 12/22/16- pt appears to be comfortable, positive blood cultures, reculture urine bilateral psoas chgs- infection/ hemorrhage assoc with probable osteomyelitis of vertebral bodies. Improved from admission. Do not plan any surgical intervention here- if does not improve, would need tertiary care. 12/22/16- pt appears to be comfortable, positive blood cultures, reculture urine bilateral psoas chgs- infection/ hemorrhage assoc with probable osteomyelitis of vertebral bodies. Improved from admission. Do not plan any surgical intervention here- if does not improve, would need tertiary care.
[2016-12-23] MEDS: DILTIAZEM HCL INJ 125 MG in DEXTROSE 5% 100ML IV PRN ×2 (06:09→06:35)
[2016-12-23 06:43] LABS: BASO % 0.3 %; BASO ABS # 0.03 K/uL (0-0.2); COMPLETE YES; EOS % 2.6 %; HEMATOCRIT 30.8 % (42-52); LYMPH % 24.9 %; LYMPH ABS # 2.91 K/uL (1.2-3.4); MEAN CELL VOLUME 91.9 fL (80-100); MEAN CORPUSCULAR HEMOGLOBIN 29.9 pg (25-34); MEAN CORPUSCULAR HGB CONC 32.5 g/dl (32-36); MONO % 9.7 %; NEUT % 61.5 %; PLATELET COUNT 182 K/uL (130-400); RED BLOOD COUNT 3.35 M/uL (4.7-6.1); WHITE BLOOD COUNT 11.69 K/uL (4.8-10.8)
[2016-12-23 06:53] LABS: INR 1.3 (0.9-1.1); PROTHROMBIN TIME (PATIENT) 13.6 SECONDS (9.0-12.0)
[2016-12-23 07:17] LABS: BUN/CREATININE RATIO 15.8 (10-20); CALCIUM 7.6 mg/dl (8.5-10.1); CREATININE 0.85 mg/dl (0.60-1.40); POTASSIUM 3.7 mmol/L (3.5-5.1)
[2016-12-23] MEDS ORDERED: METOPROLOL TARTRATE 50 MG TAB PO ONE (09:45)
[2016-12-23] MEDS: DOCUSATE SODIUM/SENNA 50/8.6MG TAB PO SCH (09:58)
[2016-12-23] MEDS: DOCUSATE SODIUM 100 MG CAP PO SCH ×2 (09:59→21:27)
--- NOTE | 2016-12-23 10:59 | Progress Note ---
Internal Med Progress Note Date of Service: December 23, 2016. Provider Documentation: SUBJECTIVE: The patient was seen and examined Still complains of pain at the back on movement No fever ,chills OBJECTIVE: Vital Signs-as noted below Exam: General-No apparent distress OOB in a chair Eyes-normal ENT-normal Neck-supple Lungs-Clear to auscultate bilaterally Heart-Regular,no murmur Abdomen-Soft,mildly tender lower quadrants,no masses,bowel sound present Extremities-Trace edema bilaterally No significant tenderness in lower Lumbar spine Neuro-AAOx3 Moves all limbs Lab data as noted below. 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 HEMATOMA -new lesion on Right side and old collection on left -favors Hematoma -No fever,chills -Antibiotics as noted above - INR 5 on admission -INR 1.3 today -No more anticoagulation -Detailed discussion with the Daughter A FIB Noted to be in RVR on Admission -Did not take his BB yesterday -Patient received IV Cardizem -has had an episode of AF with RVR last night-received 1 dose of IV Cardizem -will increase the dose of BB to 50mg BID HISTORY OF RECENT NSTEMI WITH CHF denies chest pain no acue CHF CONTINUE CURRENT MEDICATIONS CHRONIC URINARY RETENTION, MURRAY CATH change Murray hold Tamsulosin for low BP Await repeat Urine culture Blood cultures positive for Gm Negative Bacilli and Urine culture positive for Gm Negative Bacilli HISTORY OF DVT INR supratherapeutic Discontinue Coumadin from now 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 No acute issue and no surgery DVT Prophylaxis SCDs No pharmacologic anticoagulation due to iliopsoas hematoma DNR per family Disposition pending lives with daughters Has had a long discussion with the Daughter and the Son-in-law Discussed about the current medical issues and the possible outcome with current management and recommendation The family members do not want any surgery They stressed on strong oral pain medication and possible rehab placement on improvement If the condition deteriorates will need to address accordingly Vital Signs: Date Time Temp Pulse Resp B/P Pulse Ox O2 Delivery O2 Flow Rate FiO2 12/23/16 07:16 36.6 105 20 99/61 93 Nasal Cannula 2.5 12/23/16 06:26 136 20 97/64 91 12/23/16 06:21 126 24 101/65 92 12/23/16 06:18 131 20 82/62 92 12/23/16 04:00 Nasal Cannula 3.0 12/23/16 03:24 36.9 85 18 152/79 91 Nasal Cannula 3.0 12/23/16 00:07 Nasal Cannula 3.0 12/22/16 23:37 36.9 79 19 124/76 94 Nasal Cannula 3.0 12/22/16 20:00 Nasal Cannula 3.0 12/22/16 19:52 36.6 85 12 136/75 95 Nasal Cannula 2.0 12/22/16 16:00 Nasal Cannula 3.0 12/22/16 16:00 36.6 84 16 144/81 99 Nasal Cannula 3.0 12/22/16 11:52 Nasal Cannula 3.0 12/22/16 11:30 36.8 72 16 126/68 99 Nasal Cannula 3.0 Lab Results: Results Past 24 Hours Test 12/23/16 06:24 Range/Units White Blood Count 11.69 4.8-10.8 K/uL Red Blood Count 3.35 4.7-6.1 M/uL Hemoglobin 10.0 14.0-18.0 g/dL Hematocrit 30.8 42-52 % Mean Corpuscular Volume 91.9 80-100 fL Mean Corpuscular Hemoglobin 29.9 25-34 pg Mean Corpuscular Hemoglobin Concent 32.5 32-36 g/dl Platelet Count 182 130-400 K/uL Mean Platelet Volume 9.0 7.4-10.4 fL Neutrophils (%) (Auto) 61.5 % Lymphocytes (%) (Auto) 24.9 % Monocytes (%) (Auto) 9.7 % Eosinophils (%) (Auto) 2.6 % Basophils (%) (Auto) 0.3 % Neutrophils # (Auto) 7.20 1.4-6.5 K/uL Lymphocytes # (Auto) 2.91 1.2-3.4 K/uL Monocytes # (Auto) 1.13 0.11-0.59 K/uL Eosinophils # (Auto) 0.30 0-0.5 K/uL Basophils # (Auto) 0.03 0-0.2 K/uL RDW Standard Deviation 51.8 36.4-46.3 fL RDW Coefficient of Variation 15.5 11.5-14.5 % Immature Granulocyte % (Auto) 1.0 % Immature Granulocyte # (Auto) 0.12 0.00-0.02 K/uL Prothrombin Time 13.6 9.0-12.0 SECONDS Prothromb Time International Ratio 1.3 0.9-1.1 Sodium Level 143 136-145 mmol/L Potassium Level 3.7 3.5-5.1 mmol/L Chloride Level 111 98-107 mmol/L Carbon Dioxide Level 24 21-32 mmol/L Anion Gap 8.0 3-11 mmol/L Blood Urea Nitrogen 13 7-18 mg/dl Creatinine 0.85 0.60-1.40 mg/dl Est Creatinine Clear Calc Drug Dose 55.2 ml/min Estimated GFR () 90.8 Estimated GFR (Non- 78.3 BUN/Creatinine Ratio 15.8 10-20 Random Glucose 110 70-99 mg/dl Calcium Level 7.6 8.5-10.1 mg/dl Magnesium Level 2.0 1.8-2.4 mg/dl
[2016-12-23] MEDS ORDERED: VANCOMYCIN TROUGH ONE (11:30)
[2016-12-23] MEDS: MoRPHine SULFATE 4 MG/ML 1 ML CARP\\VIAL IV PRN (11:44)
[2016-12-23] MEDS ORDERED: HYDROCODONE/ACETAMINOPHEN 7.5/325MG TAB PO PRN (13:15)
[2016-12-23] MEDS: SODIUM CHLORIDE 0.9% 1000ML 1,000 ML IV SCH ×2 (14:47→21:28)
[2016-12-23] MEDS: VANCOMYCIN INJ 1,000 MG in SODIUM CHLORIDE 0.9% 250ML 250 ML IV SCH (14:48)
--- NOTE | 2016-12-23 15:00 | Pharmacy Progress Note ---
Pharmacy Abx Dose Progress Nt Date of Service December 23, 2016. Pharmacy Dosing Scope The patient WAS receiving the following antimicrobial agents per Pharmacy consult: Vancomycin 1000 mg IV every 18 hours. Vanco dosing has now been changed to 1000 mg IV q14h. Objective Height (Feet): 5 Height (Inches): 6.00 Weight (Kilograms): 71.000 Vital Signs (Past 12Hrs) Vital Signs Past 12 Hours Date Time Temp Pulse Resp B/P Pulse Ox O2 Delivery O2 Flow Rate FiO2 12/23/16 07:16 36.6 105 20 99/61 93 Nasal Cannula 2.5 12/23/16 06:26 136 20 97/64 91 12/23/16 06:21 126 24 101/65 92 12/23/16 06:18 131 20 82/62 92 12/23/16 04:00 Nasal Cannula 3.0 12/23/16 03:24 36.9 85 18 152/79 91 Nasal Cannula 3.0 Lab Results (24Hrs) Test 12/23/16 06:24 12/23/16 11:20 White Blood Count 11.69 K/uL (4.8-10.8) Red Blood Count 3.35 M/uL (4.7-6.1) Hemoglobin 10.0 g/dL (14.0-18.0) Hematocrit 30.8 % (42-52) Mean Corpuscular Volume 91.9 fL (80-100) Mean Corpuscular Hemoglobin 29.9 pg (25-34) Mean Corpuscular Hemoglobin Concent 32.5 g/dl (32-36) Platelet Count 182 K/uL (130-400) Mean Platelet Volume 9.0 fL (7.4-10.4) Neutrophils (%) (Auto) 61.5 % Lymphocytes (%) (Auto) 24.9 % Monocytes (%) (Auto) 9.7 % Eosinophils (%) (Auto) 2.6 % Basophils (%) (Auto) 0.3 % Neutrophils # (Auto) 7.20 K/uL (1.4-6.5) Lymphocytes # (Auto) 2.91 K/uL (1.2-3.4) Monocytes # (Auto) 1.13 K/uL (0.11-0.59) Eosinophils # (Auto) 0.30 K/uL (0-0.5) Basophils # (Auto) 0.03 K/uL (0-0.2) RDW Standard Deviation 51.8 fL (36.4-46.3) RDW Coefficient of Variation 15.5 % (11.5-14.5) Immature Granulocyte % (Auto) 1.0 % Immature Granulocyte # (Auto) 0.12 K/uL (0.00-0.02) Prothrombin Time 13.6 SECONDS (9.0-12.0) Prothromb Time International Ratio 1.3 (0.9-1.1) Sodium Level 143 mmol/L (136-145) Potassium Level 3.7 mmol/L (3.5-5.1) Chloride Level 111 mmol/L (98-107) Carbon Dioxide Level 24 mmol/L (21-32) Anion Gap 8.0 mmol/L (3-11) Blood Urea Nitrogen 13 mg/dl (7-18) Creatinine 0.85 mg/dl (0.60-1.40) Est Creatinine Clear Calc Drug Dose 55.2 ml/min Estimated GFR () 90.8 Estimated GFR (Non- 78.3 BUN/Creatinine Ratio 15.8 (10-20) Random Glucose 110 mg/dl (70-99) Calcium Level 7.6 mg/dl (8.5-10.1) Magnesium Level 2.0 mg/dl (1.8-2.4) Vancomycin Level Trough 12.2 mcg/ml (SEE COMMENT) Serology Item Value Date Time Vancomycin Level Trough 12.2 mcg/ml 12/23/16 1120 Micro Results Date/Time Source Procedure Growth Status 12/21/16 12:50 Blood Blood Culture - Preliminary NO GROWTH TO DATE. Resulted 12/21/16 12:43 Blood Blood Culture - Preliminary NO GROWTH TO DATE. Resulted 12/20/16 22:55 Blood Blood Culture - Final Escherichia Coli Complete 12/20/16 22:50 Blood Blood Culture - Final Escherichia Coli Complete 12/22/16 00:00 Urine,Catheterized Urine Culture - Preliminary Gram Negative Bacilli Resulted 12/20/16 21:05 Urine,Catheterized Urine Culture - Final GREATER THAN THREE TYPES OF ORGANISMS... Complete Assessment & Plan Assessment 86 year old male receiving Vancomycin for treatment of Osteomyelitis/ Discitis. Day # 4 of antimicrobial therapy Plan Vancomycin IV * Trough level of 12.2 mcg/mL is subtherapeutic. * Changed to Vancomycin 1000 mg IV every 14 hours. * Goal trough level for Osteomyelitis: 15 to 20 mcg/mL * Trough Vanco level has been ordered for 12/25/16 before dose at 1999. Pharmacy will continue to follow and will adjust dose/frequency as necessary. Thank you.
[2016-12-23] MEDS ORDERED: NURSING VERBAL MED ORDER ONE (18:00)
[2016-12-23] MEDS: METOPROLOL TARTRATE 50 MG TAB PO SCH (21:28)
[2016-12-24] MEDS ORDERED: [UNRECOGNIZED DRUG - REMARK] SCH
[2016-12-24] MEDS: VANCOMYCIN INJ 1,000 MG in SODIUM CHLORIDE 0.9% 250ML 250 ML IV SCH ×2 (02:02→16:11)
[2016-12-24 04:15] VITALS: BP 137/76; PULSE 80; TEMP 36.4; O2SAT 93
[2016-12-24] MEDS: PIPERACILL/TAZOBAC IV 4.5 GM in DEXTROSE 5% 100ML IV SCH ×3 (05:39→22:19)
[2016-12-24 05:58] LABS: BASO % 0.3 %; BASO ABS # 0.03 K/uL (0-0.2); COMPLETE YES; EOS % 2.9 %; HEMATOCRIT 29.4 % (42-52); IG% 0.7 %; LYMPH % 26.2 %; LYMPH ABS # 2.95 K/uL (1.2-3.4); MEAN CELL VOLUME 93.6 fL (80-100); MEAN CORPUSCULAR HEMOGLOBIN 30.9 pg (25-34); MEAN PLATELET VOLUME 9.3 fL (7.4-10.4); MONO % 8.7 %; NEUT % 61.2 %; PLATELET COUNT 185 K/uL (130-400); RED BLOOD COUNT 3.14 M/uL (4.7-6.1); WHITE BLOOD COUNT 11.24 K/uL (4.8-10.8)
[2016-12-24 06:10] LABS: INR 1.3 (0.9-1.1); PROTHROMBIN TIME (PATIENT) 13.5 SECONDS (9.0-12.0)
[2016-12-24 06:30] LABS: BUN/CREATININE RATIO 15.8 (10-20); CALCIUM 7.6 mg/dl (8.5-10.1); CREATININE 0.89 mg/dl (0.60-1.40); POTASSIUM 3.5 mmol/L (3.5-5.1)
[2016-12-24 07:57] VITALS: BP 130/67; PULSE 83; TEMP 36.6; O2SAT 95
[2016-12-24] MEDS: DOCUSATE SODIUM 100 MG CAP PO SCH ×2 (08:37→20:55)
[2016-12-24] MEDS: FINASTERIDE 5 MG PO SCH (08:37)
[2016-12-24] MEDS: METOPROLOL TARTRATE 50 MG TAB PO SCH ×2 (08:38→20:55)
[2016-12-24] MEDS: MoRPHine SULFATE 4 MG/ML 1 ML CARP\\VIAL IV PRN (08:40)
[2016-12-24] MEDS: POLYETHYLENE (MIRALAX) 17 GM PACK PO PRN (08:40)
[2016-12-24] MEDS ORDERED: SOAP SUDS ENEMA PR ONE (09:00)
[2016-12-24] MEDS ORDERED: FINASTERIDE 5 MG TAB PO SCH (09:00)
--- NOTE | 2016-12-24 11:04 | Progress Note ---
Internal Med Progress Note Date of Service: December 24, 2016. Provider Documentation: SUBJECTIVE: The patient was seen and examined Conversation through the Neurology Stroke Physician Pain all over ,wants to go home and wants to talk to the family members Reverted to SR OBJECTIVE: Vital Signs-as noted below Exam: General-No apparent distress Eyes-normal ENT-normal Neck-supple Lungs-Clear to auscultate bilaterally Heart-Regular,no murmur Abdomen-Soft,mildly tender lower quadrants,no masses,bowel sound present Extremities-Trace edema bilaterally No significant tenderness in lower Lumbar spine Neuro-AAOx3 Moves all limbs Lab data as noted below. 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, POSSIBLE DISCITIS POSSIBLE ILIOPSOAS ABSCESS, UTI secondary to induelling catheter -Started on IV Vanco and Zosyn- and continuing -IV fluids,lactate normalized -Appreciate Surgery input ,no surgery recommended but if it requires ,will need to transfer to Tertiary care center -Appreciate ID input -Appreciate Ortho input,MRI advised and if requires surgery will need Tertiary center referral -Pain control with Oral and IV Morphine -reasonably better today -Family members do not want any surgery -Blood culture-E Coli-sensitive to most antibiotic and Urine culture-Klebsiella Oxytoca-Pansensitive -clinically better ILIOPSOAS ABSCESS VS. HEMATOMA -new lesion on Right side and old collection on left -favors Hematoma -No fever,chills -Antibiotics as noted above - INR 5 on admission -INR 1.3 today -No more anticoagulation -Detailed discussion with the Daughter A FIB Noted to be in RVR on Admission -Did not take his BB yesterday -Patient received IV Cardizem -has had an episode of AF with RVR last night-received 1 dose of IV Cardizem -will increase the dose of BB to 50mg BID -Now in SR HISTORY OF RECENT NSTEMI WITH CHF denies chest pain no acue CHF CONTINUE CURRENT MEDICATIONS CHRONIC URINARY RETENTION, MURRAY CATH change Murray hold Tamsulosin for low BP Await repeat Urine culture Blood cultures positive for Gm Negative Bacilli and Urine culture positive for Gm Negative Bacilli HISTORY OF DVT INR supratherapeutic Discontinue Coumadin from now 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 No acute issue and no surgery DVT Prophylaxis SCDs No pharmacologic anticoagulation due to iliopsoas hematoma DNR per family Disposition pending lives with daughters Has had a long discussion with the Daughter and the Son-in-law Discussed about the current medical issues and the possible outcome with current management and recommendation The family members do not want any surgery They stressed on strong oral pain medication and possible rehab placement on improvement If the condition deteriorates will need to address accordingly Continue Physical Therapy Will discuss with the Family members Vital Signs: Date Time Temp Pulse Resp B/P Pulse Ox O2 Delivery O2 Flow Rate FiO2 12/24/16 07:57 36.6 83 16 130/67 95 Nasal Cannula 2.0 12/24/16 04:15 36.4 80 21 137/76 93 Nasal Cannula 2.0 12/24/16 04:00 Nasal Cannula 12/24/16 00:02 Room Air 12/23/16 23:39 36.5 73 20 113/63 93 Room Air 12/23/16 20:00 Nasal Cannula 2.0 12/23/16 19:33 36.3 71 20 107/56 99 Nasal Cannula 2.0 12/23/16 16:00 Nasal Cannula 3.0 12/23/16 15:46 37.0 96 20 99/53 93 Nasal Cannula 2.0 12/23/16 12:00 Nasal Cannula 3.0 12/23/16 11:30 37.0 96 24 82/46 95 Nasal Cannula 3.0 Lab Results: Results Past 24 Hours Test 12/23/16 11:20 12/24/16 05:39 Range/Units Vancomycin Level Trough 12.2 SEE COMMENT mcg/ml White Blood Count 11.24 4.8-10.8 K/uL Red Blood Count 3.14 4.7-6.1 M/uL Hemoglobin 9.7 14.0-18.0 g/dL Hematocrit 29.4 42-52 % Mean Corpuscular Volume 93.6 80-100 fL Mean Corpuscular Hemoglobin 30.9 25-34 pg Mean Corpuscular Hemoglobin Concent 33.0 32-36 g/dl Platelet Count 185 130-400 K/uL Mean Platelet Volume 9.3 7.4-10.4 fL Neutrophils (%) (Auto) 61.2 % Lymphocytes (%) (Auto) 26.2 % Monocytes (%) (Auto) 8.7 % Eosinophils (%) (Auto) 2.9 % Basophils (%) (Auto) 0.3 % Neutrophils # (Auto) 6.87 1.4-6.5 K/uL Lymphocytes # (Auto) 2.95 1.2-3.4 K/uL Monocytes # (Auto) 0.98 0.11-0.59 K/uL Eosinophils # (Auto) 0.33 0-0.5 K/uL Basophils # (Auto) 0.03 0-0.2 K/uL RDW Standard Deviation 52.8 36.4-46.3 fL RDW Coefficient of Variation 15.7 11.5-14.5 % Immature Granulocyte % (Auto) 0.7 % Immature Granulocyte # (Auto) 0.08 0.00-0.02 K/uL Prothrombin Time 13.5 9.0-12.0 SECONDS Prothromb Time International Ratio 1.3 0.9-1.1 Sodium Level 143 136-145 mmol/L Potassium Level 3.5 3.5-5.1 mmol/L Chloride Level 111 98-107 mmol/L Carbon Dioxide Level 25 21-32 mmol/L Anion Gap 7.0 3-11 mmol/L Blood Urea Nitrogen 14 7-18 mg/dl Creatinine 0.89 0.60-1.40 mg/dl Est Creatinine Clear Calc Drug Dose 52.8 ml/min Estimated GFR () 89.1 Estimated GFR (Non- 76.9 BUN/Creatinine Ratio 15.8 10-20 Random Glucose 94 70-99 mg/dl Calcium Level 7.6 8.5-10.1 mg/dl
[2016-12-24 12:14] VITALS: BP 152/82; PULSE 66; TEMP 36.6; O2SAT 96
[2016-12-24] MEDS: DOCUSATE SODIUM/SENNA 50/8.6MG TAB PO SCH (12:15)
[2016-12-24 15:11] VITALS: BP 127/68; PULSE 70; TEMP 36.2; O2SAT 96
[2016-12-24] MEDS: HYDROCODONE/ACETAMINOPHEN 7.5/325MG TAB PO SCH ×2 (16:10→22:19)
[2016-12-24] MEDS: SODIUM CHLORIDE 0.9% 1000ML 1,000 ML IV SCH ×2 (16:11→23:50)
[2016-12-24] MEDS ORDERED: NURSING DECISION MEDICATION ORDER SCH (17:15)
[2016-12-24 19:58] VITALS: BP 136/78; PULSE 65; TEMP 36.7; O2SAT 98
[2016-12-25] VITALS (7 sets, daily range): BP systolic 126–186; BP diastolic 70–103; PULSE 63–74; TEMP 36.3–36.6; O2SAT 93–99
[2016-12-25] MEDS: HYDROCODONE/ACETAMINOPHEN 7.5/325MG TAB PO SCH ×4 (04:08→22:27)
[2016-12-25] MEDS: VANCOMYCIN INJ 1,000 MG in SODIUM CHLORIDE 0.9% 250ML 250 ML IV SCH (05:42)
[2016-12-25 06:41] LABS: BASO % 0.3 %; BASO ABS # 0.03 K/uL (0-0.2); COMPLETE YES; EOS % 2.8 %; IG% 0.6 %; LYMPH % 27.7 %; LYMPH ABS # 2.74 K/uL (1.2-3.4); MEAN CORPUSCULAR HEMOGLOBIN 28.2 pg (25-34); MEAN CORPUSCULAR HGB CONC 30.3 g/dl (32-36); MEAN PLATELET VOLUME 9.1 fL (7.4-10.4); MONO % 8.7 %; NEUT % 59.9 %; PLATELET COUNT 195 K/uL (130-400); RED BLOOD COUNT 3.44 M/uL (4.7-6.1); WHITE BLOOD COUNT 9.88 K/uL (4.8-10.8)
[2016-12-25 06:52] LABS: INR 1.3 (0.9-1.1); PROTHROMBIN TIME (PATIENT) 13.7 SECONDS (9.0-12.0)
[2016-12-25 07:05] LABS: BUN/CREATININE RATIO 13.8 (10-20); CALCIUM 7.4 mg/dl (8.5-10.1); CREATININE 0.79 mg/dl (0.60-1.40); POTASSIUM 3.6 mmol/L (3.5-5.1)
[2016-12-25] MEDS: METOPROLOL TARTRATE 50 MG TAB PO SCH ×2 (07:23→20:14)
[2016-12-25] MEDS: DOCUSATE SODIUM 100 MG CAP PO SCH ×2 (07:23→20:13)
[2016-12-25] MEDS: DOCUSATE SODIUM/SENNA 50/8.6MG TAB PO SCH (07:23)
[2016-12-25] MEDS: FINASTERIDE 5 MG PO SCH (07:24)
[2016-12-25] MEDS ORDERED: SOAP SUDS ENEMA PR PRN (09:00)
--- NOTE | 2016-12-25 10:36 | Surgery Progress Note ---
Surgery Progress Note Date of Service December 25, 2016. Subjective Post OP Day: HD # 4 patient does not speak Albanian smiles on encounter to room Per nurse he is no longer in a-fib weak family and patient do not want any surgical intervention Objective Vital Signs: Date Time Temp Pulse Resp B/P Pulse Ox O2 Delivery O2 Flow Rate FiO2 12/25/16 08:00 Nasal Cannula 3.0 12/25/16 07:34 70 18 186/103 93 Room Air 12/25/16 04:16 36.6 74 19 98 Nasal Cannula 3.0 12/25/16 04:16 Nasal Cannula 3.0 12/25/16 01:30 Nasal Cannula 3.0 12/25/16 00:11 36.3 66 17 151/73 99 Nasal Cannula 2.0 12/24/16 21:32 Nasal Cannula 3.0 12/24/16 19:58 36.7 65 18 136/78 98 Nasal Cannula 2.0 12/24/16 16:00 Nasal Cannula 3.0 12/24/16 15:11 36.2 70 20 127/68 96 2.0 12/24/16 12:14 36.6 66 22 152/82 96 Nasal Cannula 2.0 12/24/16 12:00 Nasal Cannula 3.0 General Appearance: WD/WN, no apparent distress Head: normocephalic, atraumatic Respiratory/Chest: no respiratory distress Abdomen: non distended, soft, + tenderness, + pertinent finding (patient unable to communicate via italian, tender on examination via facial expression low abdomen, no peritonitis) Laboratory Results: Results Past 24 Hours Test 12/24/16 11:57 12/25/16 06:09 Range/Units Bedside Glucose 111 70-99 mg/dl White Blood Count 9.88 4.8-10.8 K/uL Red Blood Count 3.44 4.7-6.1 M/uL Hemoglobin 9.7 14.0-18.0 g/dL Hematocrit 32.0 42-52 % Mean Corpuscular Volume 93.0 80-100 fL Mean Corpuscular Hemoglobin 28.2 25-34 pg Mean Corpuscular Hemoglobin Concent 30.3 32-36 g/dl Platelet Count 195 130-400 K/uL Mean Platelet Volume 9.1 7.4-10.4 fL Neutrophils (%) (Auto) 59.9 % Lymphocytes (%) (Auto) 27.7 % Monocytes (%) (Auto) 8.7 % Eosinophils (%) (Auto) 2.8 % Basophils (%) (Auto) 0.3 % Neutrophils # (Auto) 5.91 1.4-6.5 K/uL Lymphocytes # (Auto) 2.74 1.2-3.4 K/uL Monocytes # (Auto) 0.86 0.11-0.59 K/uL Eosinophils # (Auto) 0.28 0-0.5 K/uL Basophils # (Auto) 0.03 0-0.2 K/uL RDW Standard Deviation 51.8 36.4-46.3 fL RDW Coefficient of Variation 15.7 11.5-14.5 % Immature Granulocyte % (Auto) 0.6 % Immature Granulocyte # (Auto) 0.06 0.00-0.02 K/uL Prothrombin Time 13.7 9.0-12.0 SECONDS Prothromb Time International Ratio 1.3 0.9-1.1 Sodium Level 143 136-145 mmol/L Potassium Level 3.6 3.5-5.1 mmol/L Chloride Level 112 98-107 mmol/L Carbon Dioxide Level 25 21-32 mmol/L Anion Gap 6.0 3-11 mmol/L Blood Urea Nitrogen 11 7-18 mg/dl Creatinine 0.79 0.60-1.40 mg/dl Est Creatinine Clear Calc Drug Dose 59.4 ml/min Estimated GFR () 93.6 Estimated GFR (Non- 80.7 BUN/Creatinine Ratio 13.8 10-20 Random Glucose 101 70-99 mg/dl Calcium Level 7.4 8.5-10.1 mg/dl Assessment & Plan ILIOPSOAS ABSCESS VS. HEMATOMA - Hematoma favored - leukocytosis resolved -supratherapeutic INR on admission 5.0 today 1.3 - Coumadin held since admission - nonacute abdomen with some tenderness on palpation Plan: No surgical intervention at this time. Recommend stopping Coumadin Family members do not want any surgical intervention at this time Want pain control and when stable patient possible discharge to rehab facility Our services signing off, please call with any questions Dr. Mrat has seen and examined patient, agrees with above
[2016-12-25] MEDS ORDERED: CEFAZOLIN IV 2,000 MG in DEXTROSE 5% 50ML 50 ML IV STA (11:54)
--- NOTE | 2016-12-25 16:32 | Infectious Disease Progress Nt ---
Progress Note Date of Service December 25, 2016. Subjective Pt evaluation today including: conversation w/ patient, conversation w/ family , physical exam, chart review, lab review, review of studies, review of inpatient medication list Patient is overall feeling slightly improved today. His initial blood cultures grew E coli which was resistant to ampicillin, Unasyn, and quinolones. His urine culture grew pansensitive Klebsiella oxytoca. Repeat blood cultures are showing no growth. His white blood cell count today was 9.88. The patient continues on IV vancomycin and Zosyn. He was evaluated by Dr. Medina, orthopedic spine surgery who feels that this patient's disease is extensive and he would need transfer to tertiary care for surgical intervention if that is necessary. The patient's family feels that he likely will not undergo surgery. Patient's family member is in the room and acts as budget director. All Other Systems: Reviewed and Negative Medications Current Inpatient Medications Medications (Trade) Dose Ordered Sig/Malik Route Start Time Stop Time Status Last Admin Dose Admin Diltiazem HCl 125 mg/Dextrose 125 ml @ 5 mls/hr Q24H PRN IV 12/21/16 01:00 01/20/17 00:59 12/23/16 06:35 5 MLS/HR Sodium Chloride (Nss 1000ml) 1,000 ml @ 75 mls/hr [id number] IV 12/21/16 02:30 01/20/17 02:29 12/24/16 23:50 75 MLS/HR Morphine Sulfate (MoRPHine SULFATE INJ) 4 mg Q3H PRN IV 12/21/16 02:30 01/04/17 02:29 12/24/16 08:40 4 MG Acetaminophen (Tylenol Tab) 650 mg Q4H PRN PO 12/21/16 02:45 01/20/17 02:44 Senna/Docusate Sodium (Senokot S Tab) 1 tab DAILY PO 12/21/16 09:00 01/20/17 08:59 12/25/16 07:23 1 TAB Docusate Sodium (coLACE CAP) 100 mg BID PO 12/22/16 21:00 01/21/17 20:59 12/25/16 07:23 100 MG Polyethylene (Miralax Powder Packet) 17 gm DAILY PRN PO 12/22/16 10:15 01/21/17 10:14 12/24/16 08:40 17 GM Metoprolol Tartrate (Lopressor Tab) 50 mg BID PO 12/23/16 21:00 01/22/17 20:59 12/25/16 07:23 50 MG Miscellaneous (Soap Suds Enema) 1 ea DAILY PRN [place] 12/25/16 09:00 01/24/17 08:59 Dutasteride (Avodart) 0.5 mg DAILY PO 12/24/16 09:00 01/23/17 08:59 12/25/16 07:25 0.5 MG Finasteride (Proscar Tab) 5 mg DAILY PO 12/24/16 09:00 01/23/17 08:59 12/25/16 07:24 5 MG Acetaminophen/ Hydrocodone Bitart 1 tab 1 tab Q6H PO 12/24/16 13:15 01/07/17 13:14 12/25/16 12:09 1 TAB Cefazolin Sodium/ Dextrose (Ancef Iv/D5 50ml) 60 ml @ 100 mls/hr Q8H IV 12/25/16 20:00 01/08/17 19:59 Objective Vital Signs Date Time Temp Pulse Resp B/P Pulse Ox O2 Delivery O2 Flow Rate FiO2 12/25/16 15:15 36.5 63 23 155/80 99 Nasal Cannula 4.0 12/25/16 15:02 Nasal Cannula 3.0 12/25/16 12:00 Nasal Cannula 3.0 12/25/16 11:23 36.6 72 18 151/77 96 Nasal Cannula 4.0 12/25/16 08:00 Nasal Cannula 3.0 12/25/16 07:34 70 18 186/103 93 4.0 12/25/16 04:16 36.6 74 19 98 Nasal Cannula 3.0 12/25/16 04:16 Nasal Cannula 3.0 12/25/16 01:30 Nasal Cannula 3.0 12/25/16 00:11 36.3 66 17 151/73 99 Nasal Cannula 2.0 12/24/16 21:32 Nasal Cannula 3.0 12/24/16 19:58 36.7 65 18 136/78 98 Nasal Cannula 2.0 Physical Exam General Appearance: WD/WN, no apparent distress Eyes: normal inspection, sclerae normal ENT: hearing grossly normal Neck: supple, trachea midline Respiratory/Chest: chest non-tender, lungs clear, no respiratory distress, no accessory muscle use Cardiovascular: regular rate, rhythm Abdomen: normal bowel sounds, non tender, soft Extremities: no pedal edema Neurologic/Psychiatric: alert, normal mood/affect Skin: normal color, warm/dry, no rash Laboratory Results RUN DATE: 12/23/16 [facility] LAB PAGE 1 RUN TIME: 809 Specimen Inquiry PATIENT: SHARAD LEE LOC: [facility] # : [id number] AGE/SX: 86/M ROOM: [facility] REG : 12/21/[address]: Juan Knutson M.D. : 1930 BED: 1 DIS : STATUS: ADM IN TLOC: SPEC #: [id number] TROY: 12/20/16-2249 STATUS: COMP REQ #: [id number] RECD: 12/20/[address]: Edvin Ellis M.D. SOURCE: BLOOD ENTR: 12/20/16-[address]: Tamara Toribio D.OBobby [facility]: ORDERED: BLOOD CULTURE Procedure Result Verified Site BLD CULT Final 12/23/16-0809 Organism 1 ESCHERICHIA COLI SENS SENSITIVITY TO FOLLOW Phoned Positive Blood Culture Gram Stain Report to HUBERT PARKER on 12/21/16 At 1133 By JANET. Results were verbalized back to JANET. 1. ESCHERICHIA COLI Target Route Dose RX AB Cost M.I.C. IQ ------ ----- ------ -- ------ -------- - ------ TRIMET/SULFA S <=2/38 AMPICILLIN R >16 AMPICILLIN/SUL R >16/8 CEFAZOLIN S <=8 CEFOTAXIME S <=2 CEFTRIAXONE S <=1 CEFEPIME S <=4 CEFUROXIME S <=4 IMIPENEM S <=1 GENTAMICIN S <=4 TOBRAMYCIN S <=4 AMIKACIN S <=16 CIPROFLOXACIN R >2 LEVOFLOXACIN R >4 ERTAPENEM S <=1 PIP/TAZO S <=16 S = SENSITIVE I = INTERMEDIATE R = RESISTANT Item Value Date Time Urine Culture - Final Complete 12/22/16 0000 Urine,Catheterized Klebsiella Oxytoca Blood Culture - Preliminary Resulted 12/21/16 1250 Blood NO GROWTH TO DATE. Blood Culture - Preliminary Resulted 12/21/16 1243 Blood NO GROWTH TO DATE. Blood Culture - Final Complete 12/20/16 2255 Blood Escherichia Coli Blood Culture - Final Complete 12/20/16 2250 Blood Escherichia Coli Urine Culture - Final Complete 12/20/16 2105 Urine,Catheterized GREATER THAN THREE TYPES OF ORGANISMS... Last 24 Hours Test 12/25/16 06:09 White Blood Count 9.88 K/uL Red Blood Count 3.44 M/uL Hemoglobin 9.7 g/dL Hematocrit 32.0 % Mean Corpuscular Volume 93.0 fL Mean Corpuscular Hemoglobin 28.2 pg Mean Corpuscular Hemoglobin Concent 30.3 g/dl Platelet Count 195 K/uL Mean Platelet Volume 9.1 fL Neutrophils (%) (Auto) 59.9 % Lymphocytes (%) (Auto) 27.7 % Monocytes (%) (Auto) 8.7 % Eosinophils (%) (Auto) 2.8 % Basophils (%) (Auto) 0.3 % Neutrophils # (Auto) 5.91 K/uL Lymphocytes # (Auto) 2.74 K/uL Monocytes # (Auto) 0.86 K/uL Eosinophils # (Auto) 0.28 K/uL Basophils # (Auto) 0.03 K/uL RDW Standard Deviation 51.8 fL RDW Coefficient of Variation 15.7 % Immature Granulocyte % (Auto) 0.6 % Immature Granulocyte # (Auto) 0.06 K/uL Prothrombin Time 13.7 SECONDS Prothromb Time International Ratio 1.3 Sodium Level 143 mmol/L Potassium Level 3.6 mmol/L Chloride Level 112 mmol/L Carbon Dioxide Level 25 mmol/L Anion Gap 6.0 mmol/L Blood Urea Nitrogen 11 mg/dl Creatinine 0.79 mg/dl Est Creatinine Clear Calc Drug Dose 59.4 ml/min Estimated GFR () 93.6 Estimated GFR (Non- 80.7 BUN/Creatinine Ratio 13.8 Random Glucose 101 mg/dl Calcium Level 7.4 mg/dl Assessment and Plan 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 Coli bacteremia along with recent MSSA bacteremia. 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 Patient is currently on IV vancomycin and Zosyn. I feel that he can transition to IV Ancef alone. This will cover the E coli in his blood, Klebsiella in his urine, and previous MSSA bacteremia as well. Echocardiogram showed no evidence of vegetation within the limitation of the study. Repeat blood cultures have been negative. I feel that this patient likely will require 8 weeks of IV antibiotic therapy along with long-term oral antibiotic therapy after discontinuation of IVs. If patient is anticipated to be discharged to rehab, can continue IV Ancef. Otherwise, would recommend change to ceftriaxone 2 grams daily for home use for ease of use if necessary. We will continue to follow and assess this patient. PROVIDER ADDENDUM: Patient reviewed with Ms. Serna. Agree with above assessment.
--- NOTE | 2016-12-25 17:24 | Progress Note ---
Internal Med Progress Note Date of Service: December 25, 2016. Provider Documentation: SUBJECTIVE: The patient was seen and examined Conversation through the [employer] Remains stable Pain is controlled Will get PT OBJECTIVE: Vital Signs-as noted below Exam: General-No apparent distress Eyes-normal ENT-normal Neck-supple Lungs-Clear to auscultate bilaterally Heart-Regular,no murmur Abdomen-Soft,mildly tender lower quadrants,no masses,bowel sound present Extremities-Trace edema bilaterally No significant tenderness in lower Lumbar spine Neuro-AAOx3 Moves all limbs Lab data as noted below. 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, POSSIBLE DISCITIS POSSIBLE ILIOPSOAS ABSCESS, UTI secondary to indwelling catheter -Started on IV Vanco and Zosyn- -IV fluids,lactate normalized -Appreciate Surgery input ,no surgery recommended but if it requires ,will need to transfer to Tertiary care center -Appreciate ID input -Appreciate Ortho input,MRI advised and if requires surgery will need Tertiary center referral -Pain control with Oral and IV Morphine -reasonably better today -Family members do not want any surgery -Blood culture-E Coli-sensitive to most antibiotic and Urine culture-Klebsiella Oxytoca-Pansensitive -Antibiotic changed to Ancef and may need to change to Ceftriaxone if needed -Duration 8 weeks in total ILIOPSOAS ABSCESS VS. HEMATOMA -new lesion on Right side and old collection on left -favors Hematoma -No fever,chills -Antibiotics as noted above - INR 5 on admission -INR 1.3 today -No more anticoagulation -Detailed discussion with the Daughter A FIB Noted to be in RVR on Admission -Did not take his BB yesterday -Patient received IV Cardizem -has had an episode of AF with RVR last night-received 1 dose of IV Cardizem -will increase the dose of BB to 50mg BID -Now in SR HISTORY OF RECENT NSTEMI WITH CHF denies chest pain no acue CHF CONTINUE CURRENT MEDICATIONS CHRONIC URINARY RETENTION, MURRAY CATH change Murray hold Tamsulosin for low BP Await repeat Urine culture Blood cultures positive for Gm Negative Bacilli and Urine culture positive for Gm Negative Bacilli HISTORY OF DVT INR supratherapeutic Discontinue Coumadin from now 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 No acute issue and no surgery DVT Prophylaxis SCDs No pharmacologic anticoagulation due to iliopsoas hematoma DNR per family Disposition pending lives with daughters Has had a long discussion with the Daughter and the Son-in-law Discussed about the current medical issues and the possible outcome with current management and recommendation The family members do not want any surgery They stressed on strong oral pain medication and possible rehab placement on improvement If the condition deteriorates will need to address accordingly Continue Physical Therapy Will discuss with the Family members PT/OT and placement Vital Signs: Date Time Temp Pulse Resp B/P Pulse Ox O2 Delivery O2 Flow Rate FiO2 12/25/16 15:15 36.5 63 23 155/80 99 Nasal Cannula 4.0 12/25/16 15:02 Nasal Cannula 3.0 12/25/16 12:00 Nasal Cannula 3.0 12/25/16 11:23 36.6 72 18 151/77 96 Nasal Cannula 4.0 12/25/16 08:00 Nasal Cannula 3.0 12/25/16 07:34 70 18 186/103 93 4.0 12/25/16 04:16 36.6 74 19 98 Nasal Cannula 3.0 12/25/16 04:16 Nasal Cannula 3.0 12/25/16 01:30 Nasal Cannula 3.0 12/25/16 00:11 36.3 66 17 151/73 99 Nasal Cannula 2.0 12/24/16 21:32 Nasal Cannula 3.0 12/24/16 19:58 36.7 65 18 136/78 98 Nasal Cannula 2.0 Lab Results: Results Past 24 Hours Test 12/25/16 06:09 Range/Units White Blood Count 9.88 4.8-10.8 K/uL Red Blood Count 3.44 4.7-6.1 M/uL Hemoglobin 9.7 14.0-18.0 g/dL Hematocrit 32.0 42-52 % Mean Corpuscular Volume 93.0 80-100 fL Mean Corpuscular Hemoglobin 28.2 25-34 pg Mean Corpuscular Hemoglobin Concent 30.3 32-36 g/dl Platelet Count 195 130-400 K/uL Mean Platelet Volume 9.1 7.4-10.4 fL Neutrophils (%) (Auto) 59.9 % Lymphocytes (%) (Auto) 27.7 % Monocytes (%) (Auto) 8.7 % Eosinophils (%) (Auto) 2.8 % Basophils (%) (Auto) 0.3 % Neutrophils # (Auto) 5.91 1.4-6.5 K/uL Lymphocytes # (Auto) 2.74 1.2-3.4 K/uL Monocytes # (Auto) 0.86 0.11-0.59 K/uL Eosinophils # (Auto) 0.28 0-0.5 K/uL Basophils # (Auto) 0.03 0-0.2 K/uL RDW Standard Deviation 51.8 36.4-46.3 fL RDW Coefficient of Variation 15.7 11.5-14.5 % Immature Granulocyte % (Auto) 0.6 % Immature Granulocyte # (Auto) 0.06 0.00-0.02 K/uL Prothrombin Time 13.7 9.0-12.0 SECONDS Prothromb Time International Ratio 1.3 0.9-1.1 Sodium Level 143 136-145 mmol/L Potassium Level 3.6 3.5-5.1 mmol/L Chloride Level 112 98-107 mmol/L Carbon Dioxide Level 25 21-32 mmol/L Anion Gap 6.0 3-11 mmol/L Blood Urea Nitrogen 11 7-18 mg/dl Creatinine 0.79 0.60-1.40 mg/dl Est Creatinine Clear Calc Drug Dose 59.4 ml/min Estimated GFR () 93.6 Estimated GFR (Non- 80.7 BUN/Creatinine Ratio 13.8 10-20 Random Glucose 101 70-99 mg/dl Calcium Level 7.4 8.5-10.1 mg/dl
[2016-12-25] MEDS ORDERED: VANCOMYCIN TROUGH SCH (19:30)
[2016-12-25] MEDS: CEFAZOLIN IV 2,000 MG in DEXTROSE 5% 50ML 50 ML IV SCH (20:13)
[2016-12-25] MEDS: ACETAMINOPHEN 325 MG TAB PO PRN (20:19)
--- NOTE | 2016-12-25 20:56 | DIAGNOSTIC IMAGING REPORT ---
MRI OF THE LUMBAR SPINE WITHOUT IV CONTRAST CLINICAL HISTORY: Back pain. COMPARISON STUDY: CT scan of the lumbar spine dated 12/20/[address] 10/16/2016. TECHNIQUE: MRI of the lumbar spine is performed utilizing various T1 and T2-weighted sequences in the axial and sagittal planes. IV contrast was not administered for this examination. The examination is degraded by motion artifact. FINDINGS: Lumbar spine: There is destructive change is seen involving the superior endplate of L3. This is unchanged from the 12/20/2016 CT scan and is new from the 10/16/[address] scan. Mild destructive change is also seen involving the inferior endplate of L2. There is significant hyperintense signal within the L2-L3 disc, with surrounding bony sclerosis and marked endplate edema. The findings are highly concerning for discitis/osteomyelitis. No additional destructive changes are seen at the remaining vertebral levels. Vertebral body height is otherwise maintained throughout the lumbar spine. Alignment is preserved. The transverse and spinous processes are grossly intact. There is no evidence of spondylolysis. Marrow signal intensity is heterogeneous. Intervertebral discs: As noted above, there is widening of the disc space at L2-L3 with T2 hyperintense signal/fluid within the disc space. There is also increased signal/fluid within the L1-L2 as well as the L3-L4 discs. The remaining discs demonstrate degenerative desiccation. There is moderate to severe loss of height at L3-L4. Spinal cord: The visualized spinal cord is normal in morphology and signal intensity. The conus medullaris terminates at the level of L1. No epidural fluid collection is identified. L1-L2: There is broad-based posterior disc bulge with annular fissure. There is no significant acquired compromise of the central canal. There is bilateral subarticular stenosis with possible impingement of exiting left L1 nerve root. L2-L3: There is posterior disc bulge with annular fissure. In conjunction with hypertrophy of the ligamentum flavum, there is mild to moderate acquired compromise of the central canal. The minimum AP diameter measures 8.5 mm. There is bilateral subarticular stenosis, left greater than right with probable impingement of exiting left L2 nerve root. Facet arthropathy causes moderate right greater than left neural foraminal stenosis. L3-L4: There is a large posterior disc bulge with annular fissure. In conjunction with hypertrophy of the ligamentum flavum, there is mild to moderate acquired compromise of the central canal at this level with a minimal AP diameter of 8.5 mm. There is bilateral subarticular stenosis with probable impingement on the exiting bilateral L3 and the transiting bilateral L4 nerve roots. Facet arthropathy causes severe right and minimal left neural foraminal stenosis. L4-L5: There is minimal posterior disc bulge. The central canal appears clear. There is bilateral subarticular stenosis with possible impingement on the exiting right L4 nerve root. Facet arthropathy causes moderate right and minimal left neural foraminal stenosis. L5-S1: There is minimal disc bulge. The central canal is patent. Facet arthropathy causes mild to moderate bilateral neural foraminal stenosis. Sacrum: There is significant fatty replacement seen throughout the sacrum. No destructive sacral process is identified. Soft tissues: There is significant edema seen within the psoas musculature bilaterally as well as the right paraspinous musculature. There are fluid collections identified within the psoas musculature bilaterally. A collection within the left psoas muscle at the level of L3 measures 3.6 x 2.7 cm. Additional collections are seen more inferiorly within the left psoas musculature. Smaller collections are also identified within the right psoas musculature. These are seen at the levels of L4 and L5 and are ill-defined. No retroperitoneal lymphadenopathy is clearly seen. The kidneys demonstrate cortical atrophy. No collection is clearly seen within the right paraspinous musculature. IMPRESSION: 1. There is significant abnormality again seen at the L2-L3 disc which is largely replaced with T2 hyperintense material/fluid. Additionally, there is significant destructive change within the adjacent L2 and L3 endplates and marked marrow edema. The appearance is typical for discitis/osteomyelitis. 2. There is fluid signal also seen within the L1-L2 as well as the L3-L4 disc spaces. There is no destructive endplate change identified at these levels. This is indeterminant and could be on a degenerative basis or could also represent discitis. 3. There is no evidence of epidural fluid collection. 4. There is marked intramuscular edema seen within the right-sided paraspinous musculature as well as the iliopsoas musculature. The appearance is consistent with myositis. Bilateral psoas muscle collections are again seen and typical in appearance for abscesses. 5. Multilevel spondylotic change with acquired compromise of the central canal. See discussion for detailed level by level analysis. Dictated: 12/25/2016 8:06 PM Transcribed: 12/25/2016 8:56 PM [email or web address] Electronically signed by: Edvin Sidhu M.D. 12/25/2016 9:06 PM Dictated Date/Time: 12/25/2016 8:06 PM
[2016-12-26] VITALS (9 sets, daily range): BP systolic 142–211; BP diastolic 74–110; PULSE 58–83; TEMP 36.4–36.7; O2SAT 97–100
[2016-12-26] MEDS: SODIUM CHLORIDE 0.9% 1000ML 1,000 ML IV SCH ×2 (02:18→15:20)
[2016-12-26] MEDS: HYDROCODONE/ACETAMINOPHEN 7.5/325MG TAB PO SCH ×4 (03:19→21:28)
[2016-12-26] MEDS: CEFAZOLIN IV 2,000 MG in DEXTROSE 5% 50ML 50 ML IV SCH ×3 (03:19→19:23)
[2016-12-26 05:46] LABS: BASO % 0.2 %; BASO ABS # 0.02 K/uL (0-0.2); COMPLETE YES; EOS % 2.2 %; HEMATOCRIT 31.7 % (42-52); IG% 0.6 %; LYMPH % 26.5 %; LYMPH ABS # 2.85 K/uL (1.2-3.4); MEAN CELL VOLUME 93.2 fL (80-100); MEAN CORPUSCULAR HEMOGLOBIN 30.3 pg (25-34); MEAN CORPUSCULAR HGB CONC 32.5 g/dl (32-36); MEAN PLATELET VOLUME 9.3 fL (7.4-10.4); MONO % 7.1 %; NEUT % 63.4 %; PLATELET COUNT 208 K/uL (130-400); WHITE BLOOD COUNT 10.77 K/uL (4.8-10.8)
[2016-12-26 05:51] LABS: INR 1.3 (0.9-1.1)
[2016-12-26 06:16] LABS: BUN/CREATININE RATIO 10.4 (10-20); CALCIUM 7.6 mg/dl (8.5-10.1); CREATININE 0.8 mg/dl (0.60-1.40); MAGNESIUM 2.1 mg/dl (1.8-2.4); POTASSIUM 3.5 mmol/L (3.5-5.1)
[2016-12-26 06:18] LABS: PHOSPHORUS 1.8 mg/dl (2.5-4.9)
[2016-12-26] MEDS: MoRPHine SULFATE 4 MG/ML 1 ML CARP\\VIAL IV PRN (07:47)
[2016-12-26] MEDS: ACETAMINOPHEN 325 MG TAB PO PRN (07:48)
[2016-12-26] MEDS: METOPROLOL TARTRATE 50 MG TAB PO SCH ×2 (07:48→21:28)
[2016-12-26] MEDS: FINASTERIDE 5 MG PO SCH (07:48)
[2016-12-26] MEDS: DOCUSATE SODIUM 100 MG CAP PO SCH ×2 (07:49→21:28)
[2016-12-26] MEDS: DOCUSATE SODIUM/SENNA 50/8.6MG TAB PO SCH (07:49)
[2016-12-26] MEDS ORDERED: POTASSIUM PHOS 3 MMOL/1 ML INFUSION IV STA (08:44)
[2016-12-26] MEDS ORDERED: POTASSIUM PHOSPHATE INJ 30 MMOL in SODIUM CHLORIDE 0.9% 500ML 500 ML IV ONE (09:00)
--- NOTE | 2016-12-26 09:22 | Progress Note ---
Internal Med Progress Note Date of Service: December 26, 2016. Provider Documentation: SUBJECTIVE: The patient was seen and examined Conversation through the Transitional Care Nurse Remains stable Pain is controlled at rest Noted to have very High BP this A Morning OBJECTIVE: Vital Signs-as noted below Exam: General-No apparent distress at rest No fever ,chills Eyes-normal ENT-normal Neck-supple Lungs-Clear to auscultate bilaterally Heart-Regular,no murmur Abdomen-Soft,mildly tender lower quadrants,no masses,bowel sound present Extremities-Trace edema bilaterally No significant tenderness in lower Lumbar spine Neuro-AAOx3 Moves all limbs Lab data as noted below. MRI of LS spine::: 1. There is significant abnormality again seen at the L2-L3 disc which is largely replaced with T2 hyperintense material/fluid. Additionally, there is significant destructive change within the adjacent L2 and L3 endplates and marked marrow edema. The appearance is typical for discitis/osteomyelitis. 2. There is fluid signal also seen within the L1-L2 as well as the L3-L4 disc spaces. There is no destructive endplate change identified at these levels. This is indeterminant and could be on a degenerative basis or could also represent discitis. 3. There is no evidence of epidural fluid collection. 4. There is marked intramuscular edema seen within the right-sided paraspinous musculature as well as the iliopsoas musculature. The appearance is consistent with myositis. Bilateral psoas muscle collections are again seen and typical in appearance for abscesses. 5. Multilevel spondylotic change with acquired compromise of the central canal. See discussion for detailed level by level analysis. 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 -Pain control with Oral and IV Morphine -reasonably better today -Family members do not want any surgery -Blood culture-E Coli-sensitive to most antibiotic and Urine culture-Klebsiella Oxytoca-Pansensitive -Antibiotic changed to Ancef and may need to change to Ceftriaxone if needed -Duration 8 weeks in total -will discuss with the Family members ILIOPSOAS ABSCESS VS. HEMATOMA -new lesion on Right side and old collection on left -favors Hematoma -No fever,chills -Antibiotics as noted above - INR 5 on admission -No more anticoagulation -Detailed discussion with the Daughter -No surgery as per Surgeon -signed off A FIB Noted to be in RVR on Admission -Did not take his BB yesterday -Patient received IV Cardizem -has had an episode of AF with RVR last night-received 1 dose of IV Cardizem -will increase the dose of BB to 50mg BID -Now in SR HISTORY OF RECENT NSTEMI WITH CHF denies chest pain no acue CHF CONTINUE CURRENT MEDICATIONS CHRONIC URINARY RETENTION, MURRAY CATH change Murray hold Tamsulosin for low BP Await repeat Urine culture Blood cultures positive for Gm Negative Bacilli and Urine culture positive for Gm Negative Bacilli Antibiotic as per ID HISTORY OF DVT INR supratherapeutic Discontinue Coumadin from now 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 No acute issue and no surgery DVT Prophylaxis SCDs No pharmacologic anticoagulation due to iliopsoas hematoma DNR per family Disposition pending lives with daughters Has had a long discussion with the Daughter and the Son-in-law Discussed about the current medical issues and the possible outcome with current management and recommendation The family members do not want any surgery They stressed on strong oral pain medication and possible rehab placement on improvement If the condition deteriorates will need to address accordingly Continue Physical Therapy Will discuss with the Family members again PT/OT and placement Vital Signs: Date Time Temp Pulse Resp B/P Pulse Ox O2 Delivery O2 Flow Rate FiO2 12/26/16 08:57 142/78 12/26/16 07:38 36.4 69 22 211/110 99 Nasal Cannula 3.0 12/26/16 04:00 Nasal Cannula 3.0 12/26/16 03:54 157/89 12/26/16 03:15 36.4 83 22 97 3.0 12/26/16 00:08 145/81 12/26/16 00:00 Nasal Cannula 3.0 12/25/16 23:24 36.4 66 22 174/98 95 Nasal Cannula 3.0 12/25/16 20:00 36.5 64 16 126/70 96 Nasal Cannula 4.0 12/25/16 20:00 Nasal Cannula 3.0 12/25/16 15:15 36.5 63 23 155/80 99 Nasal Cannula 4.0 12/25/16 15:02 Nasal Cannula 3.0 12/25/16 12:00 Nasal Cannula 3.0 12/25/16 11:23 36.6 72 18 151/77 96 Nasal Cannula 4.0 Lab Results: Results Past 24 Hours Test 12/25/16 20:15 12/26/16 05:29 Range/Units Vancomycin Level Trough 18.7 SEE COMMENT mcg/ml White Blood Count 10.77 4.8-10.8 K/uL Red Blood Count 3.40 4.7-6.1 M/uL Hemoglobin 10.3 14.0-18.0 g/dL Hematocrit 31.7 42-52 % Mean Corpuscular Volume 93.2 80-100 fL Mean Corpuscular Hemoglobin 30.3 25-34 pg Mean Corpuscular Hemoglobin Concent 32.5 32-36 g/dl Platelet Count 208 130-400 K/uL Mean Platelet Volume 9.3 7.4-10.4 fL Neutrophils (%) (Auto) 63.4 % Lymphocytes (%) (Auto) 26.5 % Monocytes (%) (Auto) 7.1 % Eosinophils (%) (Auto) 2.2 % Basophils (%) (Auto) 0.2 % Neutrophils # (Auto) 6.83 1.4-6.5 K/uL Lymphocytes # (Auto) 2.85 1.2-3.4 K/uL Monocytes # (Auto) 0.77 0.11-0.59 K/uL Eosinophils # (Auto) 0.24 0-0.5 K/uL Basophils # (Auto) 0.02 0-0.2 K/uL RDW Standard Deviation 52.7 36.4-46.3 fL RDW Coefficient of Variation 16.2 11.5-14.5 % Immature Granulocyte % (Auto) 0.6 % Immature Granulocyte # (Auto) 0.06 0.00-0.02 K/uL Prothrombin Time 14.0 9.0-12.0 SECONDS Prothromb Time International Ratio 1.3 0.9-1.1 Sodium Level 144 136-145 mmol/L Potassium Level 3.5 3.5-5.1 mmol/L Chloride Level 111 98-107 mmol/L Carbon Dioxide Level 27 21-32 mmol/L Anion Gap 6.0 3-11 mmol/L Blood Urea Nitrogen 8 7-18 mg/dl Creatinine 0.80 0.60-1.40 mg/dl Est Creatinine Clear Calc Drug Dose 58.7 ml/min Estimated GFR () 93.1 Estimated GFR (Non- 80.3 BUN/Creatinine Ratio 10.4 10-20 Random Glucose 113 70-99 mg/dl Calcium Level 7.6 8.5-10.1 mg/dl Phosphorus Level 1.8 2.5-4.9 mg/dl Magnesium Level 2.1 1.8-2.4 mg/dl
[2016-12-26] MEDS ORDERED: ASPIRIN 81 MG ECTAB PO ONE (12:09)
--- NOTE | 2016-12-26 13:04 | Infectious Disease Progress Nt ---
Progress Note Date of Service December 26, 2016. Subjective Pt evaluation today including: conversation w/ patient, conversation w/ family , physical exam, chart review, lab review, review of studies, conversation w/ data center consultant, review of inpatient medication list Patient is feeling slightly improved today. He continues to have severe back pain with movements. His white blood cell count this morning was 10.77. His creatinine was 0.80. He continues on IV Ancef without difficulty. His repeat blood cultures continue to show no growth to date. He did have a lumbar spine MRI a which showed abnormality of the L2/L3 disc space largely consistent with fluid also marrow edema typical for osteomyelitis/diskitis. No evidence of epidural abscess was seen. He was also noted have bilateral psoas muscle collections and possible myositis of the paraspinous musculature. I did discuss this patient with Dr. Medina this morning as well. He feels that if this patient would require surgery, he needs to be transferred to a tertiary care center. All Other Systems: Reviewed and Negative Medications Current Inpatient Medications Medications (Trade) Dose Ordered Sig/Malik Route Start Time Stop Time Status Last Admin Dose Admin Diltiazem HCl 125 mg/Dextrose 125 ml @ 5 mls/hr Q24H PRN IV 12/21/16 01:00 01/20/17 00:59 12/23/16 06:35 5 MLS/HR Sodium Chloride (Nss 1000ml) 1,000 ml @ 75 mls/hr [id number] IV 12/21/16 02:30 01/20/17 02:29 12/26/16 02:18 75 MLS/HR Morphine Sulfate (MoRPHine SULFATE INJ) 4 mg Q3H PRN IV 12/21/16 02:30 01/04/17 02:29 12/26/16 07:47 4 MG Acetaminophen (Tylenol Tab) 650 mg Q4H PRN PO 12/21/16 02:45 01/20/17 02:44 12/26/16 07:48 650 MG Senna/Docusate Sodium (Senokot S Tab) 1 tab DAILY PO 12/21/16 09:00 01/20/17 08:59 12/26/16 07:49 1 TAB Docusate Sodium (coLACE CAP) 100 mg BID PO 12/22/16 21:00 01/21/17 20:59 12/26/16 07:49 100 MG Polyethylene (Miralax Powder Packet) 17 gm DAILY PRN PO 12/22/16 10:15 01/21/17 10:14 12/24/16 08:40 17 GM Metoprolol Tartrate (Lopressor Tab) 50 mg BID PO 12/23/16 21:00 01/22/17 20:59 12/26/16 07:48 50 MG Miscellaneous (Soap Suds Enema) 1 ea DAILY PRN ME 12/25/16 09:00 01/24/17 08:59 Dutasteride (Avodart) 0.5 mg DAILY PO 12/24/16 09:00 01/23/17 08:59 12/26/16 07:49 0.5 MG Finasteride (Proscar Tab) 5 mg DAILY PO 12/24/16 09:00 01/23/17 08:59 12/26/16 07:48 5 MG Acetaminophen/ Hydrocodone Bitart 1 tab 1 tab Q6H PO 12/24/16 13:15 01/07/17 13:14 12/26/16 09:53 1 TAB Cefazolin Sodium 2000 mg/Dextrose 60 ml @ 100 mls/hr Q8H IV 12/25/16 20:00 01/08/17 19:59 12/26/16 12:23 100 MLS/HR Potassium Phosphate/Sodium Chloride (Potassium Phosphate Inj/Nss 500ml) 510 ml @ 102 mls/hr TODAY@0900 ONCE IV 12/26/16 09:00 12/26/16 13:59 12/26/16 09:53 102 MLS/HR Aspirin (Ecotrin Tab) 81 mg QAM PO 12/27/16 09:00 01/26/17 08:59 Objective Vital Signs Date Time Temp Pulse Resp B/P Pulse Ox O2 Delivery O2 Flow Rate FiO2 12/26/16 11:24 36.4 58 21 169/85 99 Nasal Cannula 3.0 12/26/16 08:57 142/78 12/26/16 08:00 Nasal Cannula 3.0 12/26/16 07:38 36.4 69 22 211/110 99 Nasal Cannula 3.0 12/26/16 04:00 Nasal Cannula 3.0 12/26/16 03:54 157/89 12/26/16 03:15 36.4 83 22 97 3.0 12/26/16 00:08 145/81 5/31/17 00:00 Nasal Cannula 3.0 12/25/16 23:24 36.4 66 22 174/98 95 Nasal Cannula 3.0 12/25/16 20:00 36.5 64 16 126/70 96 Nasal Cannula 4.0 12/25/16 20:00 Nasal Cannula 3.0 12/25/16 15:15 36.5 63 23 155/80 99 Nasal Cannula 4.0 12/25/16 15:02 Nasal Cannula 3.0 Physical Exam General Appearance: WD/WN, no apparent distress Eyes: normal inspection, sclerae normal ENT: hearing grossly normal Neck: supple, trachea midline Respiratory/Chest: no respiratory distress, no accessory muscle use Abdomen: normal bowel sounds, non tender, soft Neurologic/Psychiatric: alert, normal mood/affect Skin: normal color, warm/dry, no rash Laboratory Results MRI OF THE LUMBAR SPINE WITHOUT IV CONTRAST CLINICAL HISTORY: Back pain. COMPARISON STUDY: CT scan of the lumbar spine dated 12/20/[address] 10/16/2016. TECHNIQUE: MRI of the lumbar spine is performed utilizing various T1 and T2-weighted sequences in the axial and sagittal planes. IV contrast was not administered for this examination. The examination is degraded by motion artifact. FINDINGS: Lumbar spine: There is destructive change is seen involving the superior endplate of L3. This is unchanged from the 12/20/2016 CT scan and is new from the 10/16/[address] scan. Mild destructive change is also seen involving the inferior endplate of L2. There is significant hyperintense signal within the L2-L3 disc, with surrounding bony sclerosis and marked endplate edema. The findings are highly concerning for discitis/osteomyelitis. No additional destructive changes are seen at the remaining vertebral levels. Vertebral body height is otherwise maintained throughout the lumbar spine. Alignment is preserved. The transverse and spinous processes are grossly intact. There is no evidence of spondylolysis. Marrow signal intensity is heterogeneous. Intervertebral discs: As noted above, there is widening of the disc space at L2-L3 with T2 hyperintense signal/fluid within the disc space. There is also increased signal/fluid within the L1-L2 as well as the L3-L4 discs. The remaining discs demonstrate degenerative desiccation. There is moderate to severe loss of height at L3-L4. Spinal cord: The visualized spinal cord is normal in morphology and signal intensity. The conus medullaris terminates at the level of L1. No epidural fluid collection is identified. L1-L2: There is broad-based posterior disc bulge with annular fissure. There is no significant acquired compromise of the central canal. There is bilateral subarticular stenosis with possible impingement of exiting left L1 nerve root. L2-L3: There is posterior disc bulge with annular fissure. In conjunction with hypertrophy of the ligamentum flavum, there is mild to moderate acquired compromise of the central canal. The minimum AP diameter measures 8.5 mm. There is bilateral subarticular stenosis, left greater than right with probable impingement of exiting left L2 nerve root. Facet arthropathy causes moderate right greater than left neural foraminal stenosis. L3-L4: There is a large posterior disc bulge with annular fissure. In conjunction with hypertrophy of the ligamentum flavum, there is mild to moderate acquired compromise of the central canal at this level with a minimal AP diameter of 8.5 mm. There is bilateral subarticular stenosis with probable impingement on the exiting bilateral L3 and the transiting bilateral L4 nerve roots. Facet arthropathy causes severe right and minimal left neural foraminal stenosis. L4-L5: There is minimal posterior disc bulge. The central canal appears clear. There is bilateral subarticular stenosis with possible impingement on the exiting right L4 nerve root. Facet arthropathy causes moderate right and minimal left neural foraminal stenosis. L5-S1: There is minimal disc bulge. The central canal is patent. Facet arthropathy causes mild to moderate bilateral neural foraminal stenosis. Sacrum: There is significant fatty replacement seen throughout the sacrum. No destructive sacral process is identified. Soft tissues: There is significant edema seen within the psoas musculature bilaterally as well as the right paraspinous musculature. There are fluid collections identified within the psoas musculature bilaterally. A collection within the left psoas muscle at the level of L3 measures 3.6 x 2.7 cm. Additional collections are seen more inferiorly within the left psoas musculature. Smaller collections are also identified within the right psoas musculature. These are seen at the levels of L4 and L5 and are ill-defined. No retroperitoneal lymphadenopathy is clearly seen. The kidneys demonstrate cortical atrophy. No collection is clearly seen within the right paraspinous musculature. IMPRESSION: 1. There is significant abnormality again seen at the L2-L3 disc which is largely replaced with T2 hyperintense material/fluid. Additionally, there is significant destructive change within the adjacent L2 and L3 endplates and marked marrow edema. The appearance is typical for discitis/osteomyelitis. 2. There is fluid signal also seen within the L1-L2 as well as the L3-L4 disc spaces. There is no destructive endplate change identified at these levels. This is indeterminant and could be on a degenerative basis or could also represent discitis. 3. There is no evidence of epidural fluid collection. 4. There is marked intramuscular edema seen within the right-sided paraspinous musculature as well as the iliopsoas musculature. The appearance is consistent with myositis. Bilateral psoas muscle collections are again seen and typical in appearance for abscesses. 5. Multilevel spondylotic change with acquired compromise of the central canal. See discussion for detailed level by level analysis. Last 24 Hours Test 12/25/16 20:15 12/26/16 05:29 Vancomycin Level Trough 18.7 mcg/ml White Blood Count 10.77 K/uL Red Blood Count 3.40 M/uL Hemoglobin 10.3 g/dL Hematocrit 31.7 % Mean Corpuscular Volume 93.2 fL Mean Corpuscular Hemoglobin 30.3 pg Mean Corpuscular Hemoglobin Concent 32.5 g/dl Platelet Count 208 K/uL Mean Platelet Volume 9.3 fL Neutrophils (%) (Auto) 63.4 % Lymphocytes (%) (Auto) 26.5 % Monocytes (%) (Auto) 7.1 % Eosinophils (%) (Auto) 2.2 % Basophils (%) (Auto) 0.2 % Neutrophils # (Auto) 6.83 K/uL Lymphocytes # (Auto) 2.85 K/uL Monocytes # (Auto) 0.77 K/uL Eosinophils # (Auto) 0.24 K/uL Basophils # (Auto) 0.02 K/uL RDW Standard Deviation 52.7 fL RDW Coefficient of Variation 16.2 % Immature Granulocyte % (Auto) 0.6 % Immature Granulocyte # (Auto) 0.06 K/uL Prothrombin Time 14.0 SECONDS Prothromb Time International Ratio 1.3 Sodium Level 144 mmol/L Potassium Level 3.5 mmol/L Chloride Level 111 mmol/L Carbon Dioxide Level 27 mmol/L Anion Gap 6.0 mmol/L Blood Urea Nitrogen 8 mg/dl Creatinine 0.80 mg/dl Est Creatinine Clear Calc Drug Dose 58.7 ml/min Estimated GFR () 93.1 Estimated GFR (Non- 80.3 BUN/Creatinine Ratio 10.4 Random Glucose 113 mg/dl Calcium Level 7.6 mg/dl Phosphorus Level 1.8 mg/dl Magnesium Level 2.1 mg/dl Assessment and Plan 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 Coli bacteremia along with recent MSSA bacteremia. 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 Fortunately the patient's MRI showed no epidural space infection. Patient is currently on IV Ancef. Echocardiogram showed no evidence of vegetation within the limitation of the study. Repeat blood cultures have been negative. I feel that this patient likely will require 8 weeks of IV antibiotic therapy along with long-term oral antibiotic therapy after discontinuation of IVs. If patient is anticipated to be discharged to rehab, can continue IV Ancef. Otherwise, would recommend change to ceftriaxone 2 grams daily for home use for ease of use if necessary. He will need a PICC line. We will continue to follow and assess this patient. PROVIDER ADDENDUM: PATIENT REVIEWED WITH MS. LOYOLA. AGREE WITH ABOVE ASSESSMENT.
[2016-12-27 04:00] VITALS: BP 170/111; PULSE 61; TEMP 36.9; O2SAT 94
[2016-12-27] MEDS: HYDROCODONE/ACETAMINOPHEN 7.5/325MG TAB PO SCH ×5 (04:17→21:39)
[2016-12-27] MEDS: CEFAZOLIN IV 2,000 MG in DEXTROSE 5% 50ML 50 ML IV SCH ×3 (04:17→20:24)
[2016-12-27] MEDS: SODIUM CHLORIDE 0.9% 1000ML 1,000 ML IV SCH ×2 (05:57→19:06)
[2016-12-27 07:44] VITALS: BP 169/80; PULSE 63; TEMP 36.4; O2SAT 98
[2016-12-27] MEDS: METOPROLOL TARTRATE 50 MG TAB PO SCH ×2 (08:27→20:25)
[2016-12-27] MEDS: ASPIRIN 81 MG ECTAB PO SCH (08:27)
[2016-12-27] MEDS: FINASTERIDE 5 MG PO SCH (08:28)
[2016-12-27] MEDS: DOCUSATE SODIUM/SENNA 50/8.6MG TAB PO SCH (08:28)
[2016-12-27] MEDS: DOCUSATE SODIUM 100 MG CAP PO SCH ×2 (08:29→20:25)
--- NOTE | 2016-12-27 08:43 | Surgery Progress Note ---
Surgery Progress Note Date of Service Dec 27, 2016. Subjective + feeling well pt feels better, pt denies fever, pt had MRI-IMPRESSION: 1. There is significant abnormality again seen at the L2-L3 disc which is largely replaced with T2 hyperintense material/fluid. Additionally, there is significant destructive change within the adjacent L2 and L3 endplates and marked marrow edema. The appearance is typical for discitis/osteomyelitis. 2. There is fluid signal also seen within the L1-L2 as well as the L3-L4 disc spaces. There is no destructive endplate change identified at these levels. This is indeterminant and could be on a degenerative basis or could also represent discitis. 3. There is no evidence of epidural fluid collection. 4. There is marked intramuscular edema seen within the right-sided paraspinous musculature as well as the iliopsoas musculature. The appearance is consistent with myositis. Bilateral psoas muscle collections are again seen and typical in appearance for abscesses. 5. Multilevel spondylotic change with acquired compromise of the central canal. See discussion for detailed level by level analysis. Objective Vital Signs: Date Time Temp Pulse Resp B/P (MAP) Pulse Ox O2 Delivery O2 Flow Rate FiO2 12/27/16 07:44 36.4 63 18 169/80 (109) 98 Nasal Cannula 3.0 12/27/16 04:00 36.9 61 18 170/111 (130) 94 Nasal Cannula 3.0 12/27/16 04:00 Nasal Cannula 3.0 12/26/16 23:59 Nasal Cannula 3.0 12/26/16 23:29 36.4 60 12 151/74 (99) 100 3.0 12/26/16 20:00 Nasal Cannula 2.0 12/26/16 19:48 36.6 66 15 162/80 (107) 97 3.0 12/26/16 16:00 Nasal Cannula 2.0 12/26/16 15:17 36.7 64 19 154/84 (107) 99 Nasal Cannula 3.0 12/26/16 12:00 Nasal Cannula 3.0 12/26/16 11:24 36.4 58 21 169/85 (113) 99 Nasal Cannula 3.0 12/26/16 08:57 142/78 (99) General Appearance: WD/WN Head: normocephalic Neck: supple, no JVD Respiratory/Chest: chest non-tender, lungs clear Cardiovascular: no JVD Abdomen: normal bowel sounds, non tender, non distended, soft Extremities: normal range of motion, non-tender, normal inspection Assessment & Plan base on MRI finding, most relative to bone infection, sign off , please call me if need me. thanks,
[2016-12-27] MEDS: MoRPHine SULFATE 4 MG/ML 1 ML CARP\\VIAL IV PRN (08:49)
[2016-12-27] MEDS ORDERED: POTASSIUM PHOS 3 MMOL/1 ML INFUSION IV STA (08:56)
[2016-12-27] MEDS ORDERED: POTASSIUM PHOSPHATE INJ 30 MMOL in SODIUM CHLORIDE 0.9% 500ML 500 ML IV SCH (09:30)
[2016-12-27] MEDS ORDERED: NURSING VERBAL MED ORDER ONE (10:15)
[2016-12-27 11:32] VITALS: BP 154/78; PULSE 62; TEMP 36.4; O2SAT 97
--- NOTE | 2016-12-27 13:40 | Progress Note ---
Internal Med Progress Note Date of Service: Dec 27, 2016. Provider Documentation: SUBJECTIVE: The patient was seen and examined Conversation through the Curriculum Manager Seems to be in Pain refusing foods OBJECTIVE: Vital Signs-as noted below Exam: General-OOB in a s=chair,in moderate distress at rest No fever ,chills Eyes-normal ENT-normal Neck-supple Lungs-Clear to auscultate bilaterally Heart-Regular,no murmur Abdomen-Soft,mildly tender lower quadrants,no masses,bowel sound present Extremities-Trace edema bilaterally No significant tenderness in lower Lumbar spine Neuro-AAOx3 Moves all limbs Lab data as noted below. MRI of LS spine::: 1. There is significant abnormality again seen at the L2-L3 disc which is largely replaced with T2 hyperintense material/fluid. Additionally, there is significant destructive change within the adjacent L2 and L3 endplates and marked marrow edema. The appearance is typical for discitis/osteomyelitis. 2. There is fluid signal also seen within the L1-L2 as well as the L3-L4 disc spaces. There is no destructive endplate change identified at these levels. This is indeterminant and could be on a degenerative basis or could also represent discitis. 3. There is no evidence of epidural fluid collection. 4. There is marked intramuscular edema seen within the right-sided paraspinous musculature as well as the iliopsoas musculature. The appearance is consistent with myositis. Bilateral psoas muscle collections are again seen and typical in appearance for abscesses. 5. Multilevel spondylotic change with acquired compromise of the central canal. See discussion for detailed level by level analysis. 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 -Pain control with Oral and IV Morphine -reasonably better today -Family members do not want any surgery -Blood culture-E Coli-sensitive to most antibiotic and Urine culture-Klebsiella Oxytoca-Pansensitive -Antibiotic changed to Ancef and may need to change to Ceftriaxone if needed -Duration 8 weeks in total -Increase pain medications to q 4h -PT/OT evaluation and Rehab placement ILIOPSOAS ABSCESS VS. HEMATOMA -new lesion on Right side and old collection on left -favors Hematoma -No fever,chills -Antibiotics as noted above - INR 5 on admission -No more anticoagulation -Detailed discussion with the Daughter -No surgery as per Surgeon -signed off A FIB Noted to be in RVR on Admission -Did not take his BB yesterday -Patient received IV Cardizem -has had an episode of AF with RVR last night-received 1 dose of IV Cardizem -will increase the dose of BB to 50mg BID -Now in SR -will put Aspirin only HISTORY OF RECENT NSTEMI WITH CHF denies chest pain no acue CHF CONTINUE CURRENT MEDICATIONS CHRONIC URINARY RETENTION, MURRAY CATH change Murray hold Tamsulosin for low BP Await repeat Urine culture Blood cultures positive for Gm Negative Bacilli and Urine culture positive for Gm Negative Bacilli Antibiotic as per ID HISTORY OF DVT INR supratherapeutic Discontinue Coumadin from now 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 No acute issue and no surgery DVT Prophylaxis SCDs No pharmacologic anticoagulation due to iliopsoas hematoma DNR per family Disposition pending lives with daughters Has had a long discussion with the Daughter and the Son-in-law Discussed about the current medical issues and the possible outcome with current management and recommendation The family members do not want any surgery They stressed on strong oral pain medication and possible rehab placement on improvement If the condition deteriorates will need to address accordingly Continue Physical Therapy Will discuss with the Family members again PT/OT and placement Vital Signs: Date Time Temp Pulse Resp B/P (MAP) Pulse Ox O2 Delivery O2 Flow Rate FiO2 12/27/16 12:00 Nasal Cannula 3.0 12/27/16 11:32 36.4 62 16 154/78 (103) 97 Nasal Cannula 3.0 12/27/16 08:00 Nasal Cannula 3.0 12/27/16 07:44 36.4 63 18 169/80 (109) 98 Nasal Cannula 3.0 12/27/16 04:00 36.9 61 18 170/111 (130) 94 Nasal Cannula 3.0 12/27/16 04:00 Nasal Cannula 3.0 12/26/16 23:59 Nasal Cannula 3.0 12/26/16 23:29 36.4 60 12 151/74 (99) 100 3.0 12/26/16 20:00 Nasal Cannula 2.0 12/26/16 19:48 36.6 66 15 162/80 (107) 97 3.0 12/26/16 16:00 Nasal Cannula 2.0 12/26/16 15:17 36.7 64 19 154/84 (107) 99 Nasal Cannula 3.0
[2016-12-27 15:25] VITALS: BP 145/79; PULSE 59; TEMP 36.4; O2SAT 100
[2016-12-27 19:06] VITALS: BP 143/70; PULSE 65; TEMP 36.6; O2SAT 94
[2016-12-27 20:00] VITALS: O2SAT 94
[2016-12-28] VITALS (7 sets, daily range): BP systolic 142–183; BP diastolic 73–98; PULSE 63–73; TEMP 36.2–37; O2SAT 92–98
[2016-12-28] MEDS: HYDROCODONE/ACETAMINOPHEN 7.5/325MG TAB PO SCH ×6 (02:17→21:26)
[2016-12-28] MEDS: CEFAZOLIN IV 2,000 MG in DEXTROSE 5% 50ML 50 ML IV SCH ×3 (03:55→23:43)
[2016-12-28] MEDS ORDERED: METOPROLOL TARTRATE 50 MG TAB PO ONE (04:11)
[2016-12-28 06:01] LABS: HEMATOCRIT 34.6 % (42-52); MEAN CORPUSCULAR HEMOGLOBIN 29.3 pg (25-34); MEAN CORPUSCULAR HGB CONC 31.2 g/dl (32-36); PLATELET COUNT 196 K/uL (130-400); RED BLOOD COUNT 3.68 M/uL (4.7-6.1); WHITE BLOOD COUNT 9.71 K/uL (4.8-10.8)
[2016-12-28 06:35] LABS: BUN/CREATININE RATIO 9.1 (10-20); CALCIUM 7.6 mg/dl (8.5-10.1); CREATININE 0.67 mg/dl (0.60-1.40); MAGNESIUM 2.1 mg/dl (1.8-2.4); PHOSPHORUS 1.9 mg/dl (2.5-4.9); POTASSIUM 3.4 mmol/L (3.5-5.1)
[2016-12-28] MEDS: FINASTERIDE 5 MG PO SCH (07:38)
[2016-12-28] MEDS: ASPIRIN 81 MG ECTAB PO SCH (07:38)
[2016-12-28] MEDS: DOCUSATE SODIUM 100 MG CAP PO SCH ×2 (07:39→20:43)
[2016-12-28] MEDS: DOCUSATE SODIUM/SENNA 50/8.6MG TAB PO SCH (07:39)
[2016-12-28] MEDS ORDERED: POTASSIUM PHOS 3 MMOL/1 ML INFUSION IV STA (09:05)
[2016-12-28] MEDS ORDERED: POTASSIUM PHOSPHATE INJ 30 MMOL in SODIUM CHLORIDE 0.9% 500ML 500 ML IV ONE (09:30)
--- NOTE | 2016-12-28 13:27 | Progress Note ---
Internal Med Progress Note Date of Service: Dec 28, 2016. Provider Documentation: SUBJECTIVE: The patient was seen and examined Conversation through the Business Banker Seems to be in Pain Seen and examioned in presence of the Daughter Wants to take him home with home PT and HHN OBJECTIVE: Vital Signs-as noted below Exam: General-OOB in a chair,in moderate distress at rest No fever ,chills Eyes-normal ENT-normal Neck-supple Lungs-Clear to auscultate bilaterally Heart-Regular,no murmur Abdomen-Soft,mildly tender lower quadrants,no masses,bowel sound present Extremities-Trace edema bilaterally No significant tenderness in lower Lumbar spine Neuro-AAOx3 Moves all limbs Lab data as noted below. MRI of LS spine::: 1. There is significant abnormality again seen at the L2-L3 disc which is largely replaced with T2 hyperintense material/fluid. Additionally, there is significant destructive change within the adjacent L2 and L3 endplates and marked marrow edema. The appearance is typical for discitis/osteomyelitis. 2. There is fluid signal also seen within the L1-L2 as well as the L3-L4 disc spaces. There is no destructive endplate change identified at these levels. This is indeterminant and could be on a degenerative basis or could also represent discitis. 3. There is no evidence of epidural fluid collection. 4. There is marked intramuscular edema seen within the right-sided paraspinous musculature as well as the iliopsoas musculature. The appearance is consistent with myositis. Bilateral psoas muscle collections are again seen and typical in appearance for abscesses. 5. Multilevel spondylotic change with acquired compromise of the central canal. See discussion for detailed level by level analysis. 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 -Pain control with Oral and IV Morphine -reasonably better today -Family members do not want any surgery -Blood culture-E Coli-sensitive to most antibiotic and Urine culture-Klebsiella Oxytoca-Pansensitive -Antibiotic changed to Ancef and may need to change to Ceftriaxone if needed -Duration 8 weeks in total -Increase pain medications to q 4h -PT/OT evaluation and Rehab placement -Discussed with the Daughter-will take him home with home PT and HHN ILIOPSOAS ABSCESS VS. HEMATOMA -new lesion on Right side and old collection on left -favors Hematoma -No fever,chills -Antibiotics as noted above - INR 5 on admission -No more anticoagulation -Detailed discussion with the Daughter -No surgery as per Surgeon -signed off A FIB Noted to be in RVR on Admission -Did not take his BB yesterday -Patient received IV Cardizem -has had an episode of AF with RVR last night-received 1 dose of IV Cardizem -will increase the dose of BB to 50mg BID -Now in SR -will put Aspirin only HISTORY OF RECENT NSTEMI WITH CHF denies chest pain no acue CHF CONTINUE CURRENT MEDICATIONS CHRONIC URINARY RETENTION, MURRAY CATH change Murray hold Tamsulosin for low BP Await repeat Urine culture Blood cultures positive for Gm Negative Bacilli and Urine culture positive for Gm Negative Bacilli Antibiotic as per ID HISTORY OF DVT INR supratherapeutic Discontinue Coumadin from now 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 No acute issue and no surgery DVT Prophylaxis SCDs No pharmacologic anticoagulation due to iliopsoas hematoma DNR per family Disposition pending lives with daughters Has had a long discussion with the Daughter and the Son-in-law Discussed about the current medical issues and the possible outcome with current management and recommendation The family members do not want any surgery They stressed on strong oral pain medication and possible rehab placement on improvement If the condition deteriorates will need to address accordingly Continue Physical Therapy Will discuss with the Family members again PT/OT and placement Will discharge home with home PT and IV antibiotic with Ceftriaxone Vital Signs: Date Time Temp Pulse Resp B/P (MAP) Pulse Ox O2 Delivery O2 Flow Rate FiO2 12/28/16 12:08 37.0 63 18 151/73 (99) 94 12/28/16 12:00 Nasal Cannula 3.0 12/28/16 08:00 Nasal Cannula 3.0 12/28/16 07:36 36.4 65 18 157/89 (111) 97 Nasal Cannula 3.0 12/28/16 04:00 Nasal Cannula 3.0 12/28/16 03:13 36.8 70 18 169/86 (113) 97 Nasal Cannula 3.0 183/98 (126) 12/28/16 00:04 36.2 69 18 142/77 (98) 92 3.0 12/28/16 00:01 Nasal Cannula 3.0 12/27/16 20:00 94 Nasal Cannula 3.0 12/27/16 19:06 36.6 65 17 143/70 (94) 94 Nasal Cannula 3.0 12/27/16 16:05 Nasal Cannula 3.0 12/27/16 15:25 36.4 59 25 145/79 (101) 100 Nasal Cannula 3.0 Lab Results: Results Past 24 Hours Test 12/28/16 05:46 Range/Units White Blood Count 9.71 4.8-10.8 K/uL Red Blood Count 3.68 4.7-6.1 M/uL Hemoglobin 10.8 14.0-18.0 g/dL Hematocrit 34.6 42-52 % Mean Corpuscular Volume 94.0 80-100 fL Mean Corpuscular Hemoglobin 29.3 25-34 pg Mean Corpuscular Hemoglobin Concent 31.2 32-36 g/dl RDW Standard Deviation 57.0 36.4-46.3 fL RDW Coefficient of Variation 17.1 11.5-14.5 % Platelet Count 196 130-400 K/uL Mean Platelet Volume 9.0 7.4-10.4 fL Sodium Level 144 136-145 mmol/L Potassium Level 3.4 3.5-5.1 mmol/L Chloride Level 110 98-107 mmol/L Carbon Dioxide Level 29 21-32 mmol/L Anion Gap 5.0 3-11 mmol/L Blood Urea Nitrogen 6 7-18 mg/dl Creatinine 0.67 0.60-1.40 mg/dl Est Creatinine Clear Calc Drug Dose 70.1 ml/min Estimated GFR () 100.1 Estimated GFR (Non- 86.4 BUN/Creatinine Ratio 9.1 10-20 Random Glucose 101 70-99 mg/dl Calcium Level 7.6 8.5-10.1 mg/dl Phosphorus Level 1.9 2.5-4.9 mg/dl Magnesium Level 2.1 1.8-2.4 mg/dl
--- NOTE | 2016-12-28 14:43 | DIAGNOSTIC IMAGING REPORT ---
CHEST ONE VIEW PORTABLE CLINICAL HISTORY: PICC Line placement COMPARISON STUDY: Chest radiograph December 20, 2016. FINDINGS: The tip of the right PICC projects over the cavoatrial junction. There has been interval development of moderate to large bilateral pleural effusions with associated airspace opacities and diffuse interstitial thickening which suggests pulmonary edema. There is dense left basilar consolidation. There is made of a 6.9 x 2.4 cm lucency projecting over the right lower hemithorax. IMPRESSION: 1. Tip of right PICC projects over the cavoatrial junction. 2. Interval development of moderate to large bilateral pleural effusions with suspected pulmonary edema and bibasilar opacities which could reflect consolidation or atelectasis. 3. 6.9 x 2.4 cm lucency projecting over the right lower hemithorax. This may simply reflect aerated lung although a loculated pneumothorax or less likely pneumoperitoneum could appear similar. Short-term radiographic follow-up is recommended. Electronically signed by: Severo Reynolds M.D. 12/28/2016 2:42 PM Dictated Date/Time: 12/28/2016 2:39 PM
[2016-12-28] MEDS: METOPROLOL TARTRATE 50 MG TAB PO SCH (20:43)
[2016-12-29] VITALS (8 sets, daily range): BP systolic 140–176; BP diastolic 85–98; PULSE 57–69; TEMP 36.7–37.1; O2SAT 95–99
[2016-12-29] MEDS: HYDROCODONE/ACETAMINOPHEN 7.5/325MG TAB PO SCH ×2 (02:06→05:26)
[2016-12-29] MEDS: DOCUSATE SODIUM 100 MG CAP PO SCH ×2 (08:16→20:07)
[2016-12-29] MEDS: CEFAZOLIN IV 2,000 MG in DEXTROSE 5% 50ML 50 ML IV SCH (08:16)
[2016-12-29] MEDS: DOCUSATE SODIUM/SENNA 50/8.6MG TAB PO SCH (08:17)
[2016-12-29] MEDS: METOPROLOL TARTRATE 50 MG TAB PO SCH ×2 (08:17→20:08)
[2016-12-29] MEDS: ASPIRIN 81 MG ECTAB PO SCH (08:17)
[2016-12-29] MEDS: FINASTERIDE 5 MG PO SCH (08:18)
[2016-12-29] MEDS: HYDROCODONE/ACETAMOPHEN 5/325MG TAB PO PRN ×2 (10:22→20:07)
[2016-12-29] MEDS ORDERED: NURSING VERBAL MED ORDER ONE (12:15)
[2016-12-29] MEDS ORDERED: CEFTRIAXONE SOD INJ 2,000 MG in DEXTROSE 5% 50ML 50 ML IV SCH (12:30)
--- NOTE | 2016-12-29 15:19 | Progress Note ---
Internal Med Progress Note Date of Service: Dec 29, 2016. Provider Documentation: SUBJECTIVE: The patient was seen and examined Conversation through the Party Director Seems to be in Pain Seen and examined in presence of the Daughter Wants to take him home with home PT and HHN A little drowsy from Narcotics- Wants to go home OBJECTIVE: Vital Signs-as noted below Exam: General-OOB in a chair,in moderate distress at rest No fever ,chills Eyes-normal ENT-normal Neck-supple Lungs-Clear to auscultate bilaterally Heart-Regular,no murmur Abdomen-Soft,mildly tender lower quadrants,no masses,bowel sound present Extremities-Trace edema bilaterally No significant tenderness in lower Lumbar spine Neuro-AAOx3 Moves all limbs Lab data as noted below. MRI of LS spine::: 1. There is significant abnormality again seen at the L2-L3 disc which is largely replaced with T2 hyperintense material/fluid. Additionally, there is significant destructive change within the adjacent L2 and L3 endplates and marked marrow edema. The appearance is typical for discitis/osteomyelitis. 2. There is fluid signal also seen within the L1-L2 as well as the L3-L4 disc spaces. There is no destructive endplate change identified at these levels. This is indeterminant and could be on a degenerative basis or could also represent discitis. 3. There is no evidence of epidural fluid collection. 4. There is marked intramuscular edema seen within the right-sided paraspinous musculature as well as the iliopsoas musculature. The appearance is consistent with myositis. Bilateral psoas muscle collections are again seen and typical in appearance for abscesses. 5. Multilevel spondylotic change with acquired compromise of the central canal. See discussion for detailed level by level analysis. 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 -Pain control with Oral and IV Morphine -reasonably better today -Family members do not want any surgery -Blood culture-E Coli-sensitive to most antibiotic and Urine culture-Klebsiella Oxytoca-Pansensitive -Antibiotic changed to Ancef and may need to change to Ceftriaxone if needed -Duration 8 weeks in total -Increase pain medications to q 4h -PT/OT evaluation and Rehab placement -Discussed with the Daughter-will take him home with home PT and HHN -PICC line placed -Ceftriaxone 2gm IV started -Likely home with home health and home PT -Discussed with the daughter ILIOPSOAS ABSCESS VS. HEMATOMA -new lesion on Right side and old collection on left -favors Hematoma -No fever,chills -Antibiotics as noted above - INR 5 on admission -No more anticoagulation -Detailed discussion with the Daughter -No surgery as per Surgeon -signed off -No signs of continuing infection A FIB Noted to be in RVR on Admission -Did not take his BB yesterday -Patient received IV Cardizem -has had an episode of AF with RVR last night-received 1 dose of IV Cardizem -will increase the dose of BB to 50mg BID -Now in SR -will put Aspirin only -detailed discussion with the Daughter HISTORY OF RECENT NSTEMI WITH CHF denies chest pain no acue CHF CONTINUE CURRENT MEDICATIONS CHRONIC URINARY RETENTION, MURRAY CATH change Murray hold Tamsulosin for low BP Await repeat Urine culture Blood cultures positive for Gm Negative Bacilli and Urine culture positive for Gm Negative Bacilli Antibiotic as per ID HISTORY OF DVT INR supratherapeutic Discontinue Coumadin from now 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 No acute issue and no surgery DVT Prophylaxis SCDs No pharmacologic anticoagulation due to iliopsoas hematoma DNR per family Disposition pending lives with daughters Has had a long discussion with the Daughter and the Son-in-law Discussed about the current medical issues and the possible outcome with current management and recommendation The family members do not want any surgery They stressed on strong oral pain medication and possible rehab placement on improvement If the condition deteriorates will need to address accordingly Continue Physical Therapy Will discuss with the Family members again PT/OT and placement Will discharge home with home PT and IV antibiotic with Ceftriaxone for a total of 8 weeks-prescription given Vital Signs: Date Time Temp Pulse Resp B/P (MAP) Pulse Ox O2 Delivery O2 Flow Rate FiO2 12/29/16 12:16 36.7 57 18 161/98 (119) 97 Nasal Cannula 3.0 12/29/16 12:00 Nasal Cannula 3.0 12/29/16 08:00 36.7 68 18 163/87 (112) 95 Nasal Cannula 3.0 12/29/16 08:00 Nasal Cannula 3.0 12/29/16 04:00 Nasal Cannula 3.0 12/29/16 03:42 36.7 66 22 176/95 (122) 99 Nasal Cannula 3.0 12/29/16 00:01 Nasal Cannula 3.0 12/28/16 23:39 36.4 65 16 158/81 (106) 97 Nasal Cannula 3.0 12/28/16 20:00 Nasal Cannula 3.0 12/28/16 19:51 36.9 73 18 164/80 (108) 98 2.0 12/28/16 16:00 Nasal Cannula 3.0 12/28/16 15:51 36.4 67 16 171/81 (111) 95 Nasal Cannula 2.0
[2016-12-29] MEDS: POLYETHYLENE (MIRALAX) 17 GM PACK PO PRN (19:35)
[2016-12-30] VITALS (9 sets, daily range): BP systolic 143–182; BP diastolic 77–99; PULSE 64–81; TEMP 36.3–36.8; O2SAT 92–99
[2016-12-30] MEDS: HYDROCODONE/ACETAMOPHEN 5/325MG TAB PO PRN ×3 (02:55→20:28)
[2016-12-30 06:41] LABS: HEMATOCRIT 32.1 % (42-52); MEAN CELL VOLUME 94.1 fL (80-100); MEAN CORPUSCULAR HEMOGLOBIN 29.6 pg (25-34); MEAN CORPUSCULAR HGB CONC 31.5 g/dl (32-36); MEAN PLATELET VOLUME 9.6 fL (7.4-10.4); PLATELET COUNT 175 K/uL (130-400); RED BLOOD COUNT 3.41 M/uL (4.7-6.1); WHITE BLOOD COUNT 10.27 K/uL (4.8-10.8)
[2016-12-30 07:13] LABS: CREATININE 0.67 mg/dl (0.60-1.40); POTASSIUM 3.4 mmol/L (3.5-5.1)
[2016-12-30 07:14] LABS: PHOSPHORUS 1.8 mg/dl (2.5-4.9)
[2016-12-30] MEDS: ASPIRIN 81 MG ECTAB PO SCH (08:54)
[2016-12-30] MEDS: DOCUSATE SODIUM/SENNA 50/8.6MG TAB PO SCH (08:55)
[2016-12-30] MEDS: METOPROLOL TARTRATE 50 MG TAB PO SCH ×2 (08:55→20:28)
[2016-12-30] MEDS: DOCUSATE SODIUM 100 MG CAP PO SCH ×2 (08:55→20:28)
[2016-12-30] MEDS: FINASTERIDE 5 MG PO SCH (08:56)
[2016-12-30] MEDS ORDERED: POTASSIUM CHLORIDE 10 MEQ TABCR PO STA (09:22)
[2016-12-30] MEDS: CEFTRIAXONE SOD INJ 2,000 MG in DEXTROSE 5% 50ML 50 ML IV SCH (10:28)
[2016-12-30] MEDS: MoRPHine SULFATE 4 MG/ML 1 ML CARP\\VIAL IV PRN (15:51)
--- NOTE | 2016-12-30 18:34 | Progress Note ---
Internal Med Progress Note Date of Service: Dec 30, 2016. Provider Documentation: SUBJECTIVE: does not speak Citizen Of [place] afebrile seems comfortable hemodynamics stable OBJECTIVE: Vital Signs-as noted below Exam: General-alert and awake. Not in distress ENT-Normal hearing Neck-no neck masses, supple Lungs-cta b/l no wheezing or crackles Heart-s1 and s2 heard regular rate and rhythm, no murmurs Abdomen-soft bowel sounds present non tender no distension Extremities-no edema, no erythema Neuro-alert and awake moves extremities Lab data as noted below. 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 Urine cx klebsiella currently on iv Rocephin 2gm daily s/p PICC line placed Family want to eloise him needs total of 8weeks of iv abx and possible po abx later. A FIB Noted to be in RVR on Admission Did not take his BB Received IV Cardizem Lopressor dose increased to 50mg bid. 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 No acute issue and no surgery DVT Prophylaxis SCDs No pharmacologic anticoagulation due to iliopsoas hematoma DNR per family Disposition Plan for home with iv abx in am social service for d/c planning Vital Signs: Date Time Temp Pulse Resp B/P (MAP) Pulse Ox O2 Delivery O2 Flow Rate FiO2 12/30/16 16:25 143/77 (99) 12/30/16 16:00 Room Air 12/30/16 15:43 36.7 64 22 182/99 (126) 95 Nasal Cannula 3.0 12/30/16 12:00 Room Air 12/30/16 11:40 36.6 70 20 166/99 (121) 92 3.0 12/30/16 08:00 Room Air 12/30/16 07:54 36.8 81 20 157/96 (116) 98 3.0 12/30/16 04:00 Room Air 12/30/16 03:51 158/80 (106) 12/30/16 02:48 36.3 71 19 175/81 (112) 99 Nasal Cannula 2.0 12/30/16 00:01 36.6 75 18 160/90 (113) 95 Nasal Cannula 3.0 12/29/16 23:59 Room Air 12/29/16 21:37 66 140/85 (103) 12/29/16 20:47 95 Nasal Cannula 3.0 12/29/16 20:01 37.1 69 20 174/91 (118) 95 Nasal Cannula 3.0 Lab Results: Results Past 24 Hours Test 12/30/16 05:55 Range/Units White Blood Count 10.27 4.8-10.8 K/uL Red Blood Count 3.41 4.7-6.1 M/uL Hemoglobin 10.1 14.0-18.0 g/dL Hematocrit 32.1 42-52 % Mean Corpuscular Volume 94.1 80-100 fL Mean Corpuscular Hemoglobin 29.6 25-34 pg Mean Corpuscular Hemoglobin Concent 31.5 32-36 g/dl RDW Standard Deviation 59.1 36.4-46.3 fL RDW Coefficient of Variation 17.4 11.5-14.5 % Platelet Count 175 130-400 K/uL Mean Platelet Volume 9.6 7.4-10.4 fL Sodium Level 143 136-145 mmol/L Potassium Level 3.4 3.5-5.1 mmol/L Chloride Level 105 98-107 mmol/L Carbon Dioxide Level 30 21-32 mmol/L Anion Gap 8.0 3-11 mmol/L Blood Urea Nitrogen 5 7-18 mg/dl Creatinine 0.67 0.60-1.40 mg/dl Est Creatinine Clear Calc Drug Dose 70.1 ml/min Estimated GFR () 100.1 Estimated GFR (Non- 86.4 BUN/Creatinine Ratio 8.0 10-20 Random Glucose 88 70-99 mg/dl Calcium Level 8.0 8.5-10.1 mg/dl Phosphorus Level 1.8 2.5-4.9 mg/dl Magnesium Level 2.0 1.8-2.4 mg/dl
[2016-12-31] VITALS (9 sets, daily range): BP systolic 140–179; BP diastolic 76–100; PULSE 66–75; TEMP 36.4–37.1; O2SAT 81–98
[2016-12-31] MEDS: MoRPHine SULFATE 4 MG/ML 1 ML CARP\\VIAL IV PRN (00:16)
[2016-12-31 09:00] LABS: BUN/CREATININE RATIO 8.8 (10-20); CREATININE 0.72 mg/dl (0.60-1.40); POTASSIUM 3.8 mmol/L (3.5-5.1)
[2016-12-31 09:04] LABS: CALCIUM 8.2 mg/dl (8.5-10.1)
[2016-12-31] MEDS: DOCUSATE SODIUM/SENNA 50/8.6MG TAB PO SCH (09:20)
[2016-12-31] MEDS: DOCUSATE SODIUM 100 MG CAP PO SCH ×2 (09:20→20:34)
[2016-12-31] MEDS: ASPIRIN 81 MG ECTAB PO SCH (09:20)
[2016-12-31] MEDS: METOPROLOL TARTRATE 50 MG TAB PO SCH ×2 (09:20→20:35)
[2016-12-31] MEDS: FINASTERIDE 5 MG PO SCH (09:21)
[2016-12-31] MEDS: CEFTRIAXONE SOD INJ 2,000 MG in DEXTROSE 5% 50ML 50 ML IV SCH (09:22)
[2016-12-31] MEDS ORDERED: METO50TA17 PO (13:08)
[2016-12-31] MEDS ORDERED: ASPEC81 PO (13:08)
[2016-12-31] MEDS ORDERED: SENN8.6T7 PO (13:08)
[2016-12-31] MEDS ORDERED: MRLP17X PO (13:08)
[2016-12-31] MEDS ORDERED: FUROSEMIDE INJ 40 MG in SYRINGE 0 ML IV ONE (13:30)
--- NOTE | 2016-12-31 13:55 | DIAGNOSTIC IMAGING REPORT ---
CHEST ONE VIEW PORTABLE CLINICAL HISTORY: pleural effusions. COMPARISON STUDY: December 28, 2016 FINDINGS: The cardiac and mediastinal contours remain stable. A right-sided PICC catheter is again visualized. There is radiographic evidence of pulmonary edema with cardiac enlargement and bilateral pleural effusions. There are associated basilar airspace opacities. There is a stable lucency projected over the right inferior hemithorax, likely representing aerated lung.[ IMPRESSION: Stable findings. Pulmonary edema pattern with bilateral pleural effusions and bibasal airspace opacities Electronically signed by: Garry Cosby M.D. 12/31/2016 1:53 PM Dictated Date/Time: 12/31/2016 1:52 PM
--- NOTE | 2016-12-31 14:56 | DIAGNOSTIC IMAGING REPORT ---
ULTRASOUND OF THE PLEURAL SPACES CLINICAL HISTORY: Pleural effusion. COMPARISON STUDY: Chest x-ray dated 12/31/2016. FINDINGS: Real-time grayscale sonography of the pleural spaces is performed to assess pleural effusions. There are moderate bilateral pleural effusions with associated atelectasis. The pleural effusion on the right has an estimated volume of 1200 cc, and the pleural effusion on the left has an estimated volume of 700 cc. Both effusions were marked for bedside thoracentesis. IMPRESSION: Moderate pleural effusions as above. These were marked for bedside thoracentesis. Electronically signed by: Edvin Sidhu M.D. 12/31/2016 2:55 PM Dictated Date/Time: 12/31/2016 2:53 PM
--- NOTE | 2016-12-31 18:44 | Pulmonary Consultation ---
History General Date of Service: Dec 31, 2016. Stated Complaint: Bilateral pleural effusions HPI The patient is a 86 year old male who presents to [facility] with complaints of Sepsis. The patient's primary care provider is Tamara Toribio D.O.. 86y/o male admitted 12/21/16 with increasing pain in his lower back and abdomen with leukocytosis and lactic acidosis. He has been treated for bacteremia, lumbar osteomyelitis, UTI and psoas muscle abscess vs. hematoma. Is a patient has been treated for his multiple infections he is also seen progressive dyspnea on exertion requiring oxygen support. Chest x-ray obtained earlier today showed bilateral opacifications/pleural effusions. I went in to interview the patient and he asked if his diet could be the social sciences chair. With this in mind the patient was interviewed by the use of his daughters and social sciences chair. The patient continued to note lower back pain intermittently especially with movement. Otherwise he denied: Fever, chills, night sweats, diarrhea, pleurisy, classic cardiac chest pain, productive cough. Current Work-up WBC 10K PLT 175K INR (12/26/16) 1.3 PT (12/26/16) 14.0 aPTT () 50.6 BUN/Cr 6/0.72 ALB (12/18/16) 2.3 Microbiology: Blood () E coli Urine (12/22/16) Klebsiella Oxytoca Radiololgy: CXR () mild pulmonary congestion with right costo-phrenic blunting CT Thoracic Spine (12/20/16) bilateral pleural effusions R>>>L CT ABD (12/20/16) bilateral pleural effusions R>>L, right sided shows sing s of loculation CXR (12/31/16) bilateral costo-phrenic blunting R>>>L, hilar fullness, cephalization Previous Work-Up Spirometry (02/2008) WNL Cardiac Echo (12/21/16) LV: EF=65-70%, LVH RV: WNL LA: mildly dilated MR: moderate TR: mild regurgitation RVSP: 40-50mmHg Review of Systems Constitutional: reports: weakness Eyes: reports: no symptoms ENT: reports: no symptoms Cardiovascular: reports: no symptoms Respiratory: reports: shortness of breath, JAMESON Gastrointestinal: reports: no symptoms Genitourinary - Male: reports: no symptoms Musculoskeletal: reports: other (chronic back pain) Integumentary: reports: no symptoms Neurologic: reports: no symptoms Psychiatric: reports: no symptoms Endocrine: no symptoms Hematologic / Lymphatic: no symptoms Allergic / Immunologic: no symptoms Past Medical History Past Medical History: 1. Bladder pain 2. Gross hematuria 3. Hearing loss 4. Incomplete bladder emptying 5. Infective otitis externa 6. Tympanic membrane perforation 7. Peptic Ulcer 8. 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 BPH 12. A-fib with RVR 13. hx of ARF 14. Ileopsoas abcess vs. hematoma 15. Osteomyelitis of the lumbar spine L1-2, L2-3 16. E. Coli bacteremia 17. MSSA bacteremia bottles 18. splenic infarction via CT 19. NSTEMI 20. Hx DVT Past Surgical History: no surgical history Family History Patient reports no known family medical history. 1. Denied: Family history of Urinary retention 2. Family history of Denial Of Any Significant Medical History Social History Denied: History of Alcohol Use (History) Never smoker Denied: History of Smoking Cigarettes Hx Tobacco Use In Past Year?: No Smoking Status: Never Smoker Marital status: Housing status: lives with family Occupational Status: retired History of MDRO History of MDRO: No Allergies Coded Allergies: No Known Allergies (Verified , 10/16/16) Current Medications Reported Home Medications Medications Dose Route/Sig Max Daily Dose Days Date Category Dose Instructions Senokot S (Sennosides-Docusate Sodium) 1 Tab Tab 2 Tab PO HS PRN 12/31/16 Rx Miralax (Polyethylene) 17 Gm Pow 17 Gm PO DAILY PRN 30 12/31/16 Rx Metoprolol Tartrate 50 Mg Tab 50 Mg PO BID 12/31/16 Rx Aspirin EC Low Dose (Aspirin) 81 Mg Ectab 81 Mg PO QAM 12/31/16 Rx [place] 5MG/325MG (Acetaminophen/Hydrocodone Bitart) Tab 1 Tab PO HS PRN 10 11/29/16 Rx PRN PAIN Colace (Docusate Sodium) 100 Mg Cap 1 Cap PO BID PRN 15 11/26/16 Reported Senna-S (Sennosides-Docusate Sodium) 1 Tab Tab 1 Tab PO DAILY PRN 11/26/16 Reported Flomax (Tamsulosin Hcl) 0.4 Mg Cap 0.4 Mg PO DAILY 11/26/16 Reported Avodart (Dutasteride) 0.5 Mg Cap 0.5 Mg PO DAILY 11/26/16 Reported Coumadin (Warfarin Sod) 2.5 Mg Tab 0.5-1 Tab PO DAILY 11/26/16 Reported Nitrostat (Nitroglycerin) 0.4 Mg Tab 0.4 Mg UT PRN 11/26/16 Reported Lopressor (Metoprolol Tartrate) 25 Mg Tab 25 Mg PO BID 11/26/16 Reported Tylenol (Acetaminophen) 500 Mg Tab 500 Mg PO Q4 PRN 11/26/16 Reported Physical Physical Exam Vital Signs: Date Time Temp Pulse Resp B/P (MAP) Pulse Ox O2 Delivery O2 Flow Rate FiO2 12/31/16 16:00 Nasal Cannula 2.0 12/31/16 15:30 36.4 66 18 150/99 (116) 93 Nasal Cannula 3.0 12/31/16 12:00 Nasal Cannula 2.0 12/31/16 11:13 36.4 68 20 162/100 (120) 95 12/31/16 09:00 81 Room Air 12/31/16 08:00 Nasal Cannula 2.0 12/31/16 07:52 36.7 75 20 179/100 (126) 97 Nasal Cannula 3.0 12/31/16 04:21 37.1 68 21 173/76 (108) 93 Nasal Cannula 2.0 12/31/16 04:00 Room Air 12/31/16 01:03 177/81 (113) 12/31/16 00:11 37.0 70 19 176/100 (125) 94 Nasal Cannula 2.0 12/30/16 23:59 Room Air 12/30/16 21:30 162/86 (111) 12/30/16 20:16 36.7 67 14 181/83 (115) 98 Nasal Cannula 3.0 12/30/16 20:00 Room Air General Appearance: NO APPARENT DISTRESS Head: NORMOCEPHALIC, ATRAUMATIC Eyes: PERRLA, NO DISCHARGE, EOMI, SCLERAE NORMAL, CONJUNCTIVAE NORMAL, FUNDUSCOPIC EXAM NORMAL ENT: NORMAL EAR EXAM, NORMAL NASAL EXAM, NORMAL MOUTH EXAM, NORMAL THROAT EXAM , NORMAL DENTAL EXAM Neck: NORMAL RANGE OF MOTION, NO TENDERNESS, TRACHEA MIDLINE, NO STRIDOR Respiratory: other (decreased breath sounds at the bases with dullness to percussion/ultrasound showed bilateral pleural effusion with apical B-lines) Cardiovasular: REGULAR RATE/RHYTHM, NORMAL S1S2, other (unable to auscultate for murmurs rubs or gallops) Abdomen: NON TENDER, NORMAL BOWEL SOUNDS, NO REBOUND, NO MASSES, NO GUARDING Genitourinary - Male: EXTERNAL GENITALIA NORMAL Back: other (tenderness to percussion of the lower lumbar region) Upper Extremities: NO EDEMA, NO DEFORMITY, NORMAL ROM Lower Extremities: NO EDEMA, NO DEFORMITY, NORMAL ROM Pulses: carotid (R) (2+), carotid (L) (2+), posterior tibial (R), posterior tibial (L) (2+) Neuro: ALERT, ORIENTED x 3, NORMAL MOTOR EXAM Reflexes: biceps (R) (2+), bicpes (L) (2+), achilles (R) (1+), achilles (L) (1+ ) Babinski Testing: right (equivocal), left (equivocal) Psychiatric: NORMAL AFFECT, NO SUICIDAL IDEATION Diagnostics Labs Results Past 24 Hours Test 12/31/16 00:00 12/31/16 08:06 Range/Units Sodium Level 140 136-145 mmol/L Potassium Level 3.8 3.5-5.1 mmol/L Chloride Level 103 98-107 mmol/L Carbon Dioxide Level 31 21-32 mmol/L Anion Gap 6.0 3-11 mmol/L Blood Urea Nitrogen 6 7-18 mg/dl Creatinine 0.72 0.60-1.40 mg/dl Est Creatinine Clear Calc Drug Dose 65.2 ml/min Estimated GFR () 97.2 Estimated GFR (Non- 83.9 BUN/Creatinine Ratio 8.8 10-20 Random Glucose 87 70-99 mg/dl Calcium Level 8.2 8.5-10.1 mg/dl Diagnostic Radiology CXR () mild pulmonary congestion with right costo-phrenic blunting CT Thoracic Spine (12/20/16) bilateral pleural effusions R>>>L CT ABD (12/20/16) bilateral pleural effusions R>>L, right sided shows sing s of loculation CXR (12/31/16) bilateral costo-phrenic blunting R>>>L, hilar fullness, cephalization EKG December 23, 2016 notes A. fib with RVR Impression Assessment and Plan 86-year-old gentleman with bilateral pleural effusions: #1: Bilateral pleural effusions: At this time I think the most likely etiology of the patient's bilateral pleural effusions that are SIRS with associated malnutrition and mild diastolic heart failure. At spoken to the patient and his daughter in reviewed the images and his clinical history. At this time the patient like to move forward with a thoracentesis for further evaluation. I believe the thoracentesis could be beneficial both clinically as well as diagnostically for rule out a possible empyema.
--- NOTE | 2016-12-31 18:46 | Procedure Note ---
Procedure Note Date of Service Dec 31, 2016. Procedure Note Procedures: Right sided Thoracentesis Consent: obtained via the patient and placed into the chart Pre-Procedural Dx: Bilateral pleural effusions Post-Procedural Dx: Bilateral pleural effusions Analgesia: 8cc of 1% Liquid Lidocaine Procedure: The patient was placed in an upright position and thoracic US was used to select a spot for the procedure. A spot along the posterior axillary line was marked in the 7th intercostal space. The patient was then draped and prepped in a sterile fashion. A modified Seldinger technique was then used for catheter placement. Flowing this approximately 1300cc of free-flowing yellow pleural fluid was removed. The patient was then cleaned and placed at a 60 degree angle in the bed were the US was used to evaluate for possible pneumothorax. The US showed good lung sliding and [place]aryn [place] signs. EBL: 2 cc Complications: None, post thoracic ultrasound showed good sliding lung/pleural sac as well as [place] sign
--- NOTE | 2016-12-31 19:41 | Progress Note ---
Internal Med Progress Note Date of Service: Dec 31, 2016. Provider Documentation: SUBJECTIVE: does not speak [place] afebrile daughter in room ok for discharge whenever ready OBJECTIVE: Vital Signs-as noted below Exam: General-alert and awake. Not in distress ENT-Normal hearing Neck-no neck masses, supple Lungs-cta b/l no wheezing or crackles Heart-s1 and s2 heard regular rate and rhythm, no murmurs Abdomen-soft bowel sounds present non tender no distension Extremities-no edema, no erythema Neuro-alert and awake moves extremities Lab data as noted below. 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 Urine cx klebsiella currently on iv Rocephin 2gm daily s/p PICC line placed Family want to eloise him needs total of 8weeks of iv abx and possible po abx later. stable A FIB Noted to be in RVR on Admission Did not take his BB Received IV Cardizem Lopressor dose increased to 50mg bid. 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 No acute issue and no surgery DVT Prophylaxis SCDs No pharmacologic anticoagulation due to iliopsoas hematoma DNR per family Disposition Plan for home with iv abx possibly in 1-2 days social service for d/c planning Vital Signs: Date Time Temp Pulse Resp B/P (MAP) Pulse Ox O2 Delivery O2 Flow Rate FiO2 12/31/16 16:00 Nasal Cannula 2.0 12/31/16 15:30 36.4 66 18 150/99 (116) 93 Nasal Cannula 3.0 12/31/16 12:00 Nasal Cannula 2.0 12/31/16 11:13 36.4 68 20 162/100 (120) 95 12/31/16 09:00 81 Room Air 12/31/16 08:00 Nasal Cannula 2.0 12/31/16 07:52 36.7 75 20 179/100 (126) 97 Nasal Cannula 3.0 12/31/16 04:21 37.1 68 21 173/76 (108) 93 Nasal Cannula 2.0 12/31/16 04:00 Room Air 12/31/16 01:03 177/81 (113) 12/31/16 00:11 37.0 70 19 176/100 (125) 94 Nasal Cannula 2.0 12/30/16 23:59 Room Air 12/30/16 21:30 162/86 (111) 12/30/16 20:16 36.7 67 14 181/83 (115) 98 Nasal Cannula 3.0 12/30/16 20:00 Room Air Lab Results: Results Past 24 Hours Test 12/31/16 00:00 12/31/16 08:06 12/31/16 17:40 Range/Units Pleural Fluid pH 7.63 7.3-7.4 Sodium Level 140 136-145 mmol/L Potassium Level 3.8 3.5-5.1 mmol/L Chloride Level 103 98-107 mmol/L Carbon Dioxide Level 31 21-32 mmol/L Anion Gap 6.0 3-11 mmol/L Blood Urea Nitrogen 6 7-18 mg/dl Creatinine 0.72 0.60-1.40 mg/dl Est Creatinine Clear Calc Drug Dose 65.2 ml/min Estimated GFR () 97.2 Estimated GFR (Non- 83.9 BUN/Creatinine Ratio 8.8 10-20 Random Glucose 87 70-99 mg/dl Calcium Level 8.2 8.5-10.1 mg/dl Microbiology Results 12/31/16 Acid Fast Stain, Ordered Pending 12/31/16 Mycobacterial Culture, Ordered Pending 12/31/16 Gram Stain, Ordered Pending 12/31/16 Bacterial Culture, Ordered Pending
[2016-12-31 20:23] LABS: PLEURAL FLUID TOTAL PROTEIN 1.8 g/dl
[2016-12-31] MEDS: HYDROCODONE/ACETAMOPHEN 5/325MG TAB PO PRN (20:35)
[2017-01-01] VITALS (7 sets, daily range): BP systolic 104–169; BP diastolic 65–93; PULSE 62–70; TEMP 36.4–36.9; O2SAT 94–98
--- NOTE | 2017-01-01 07:34 | DIAGNOSTIC IMAGING REPORT ---
CHEST ONE VIEW PORTABLE CLINICAL HISTORY: s/p right sided thoracentesis COMPARISON STUDY: Chest radiograph and chest ultrasound December 31, 2016. FINDINGS: A right PICC remains in place. There is no pneumothorax status post right thoracentesis. Small left pleural effusion is present. Right lung aeration is improved. There is diffuse interstitial thickening. Hazy left basilar opacity is noted with possible left lower lobe volume loss. IMPRESSION: 1. No pneumothorax status post right thoracentesis with significant decrease in size of the right pleural effusion and improved right lung aeration. 2. Small left pleural effusion with left basilar opacity which could reflect atelectasis or consolidation. 3. Findings suggestive of pulmonary edema. Electronically signed by: Severo Reynolds M.D. 01/01/2017 7:33 AM Dictated Date/Time: 01/01/2017 7:31 AM
--- NOTE | 2017-01-01 07:55 | Pulmonology Progress Note ---
Pulmonary Progress Note Date of Service Jan 01, 2017. Attending Dr. Sarabia Subjective Patient notes mild improvement in his breathing but speak very little Welsh at prefers to use his daughter as an director general whom is not available at this time. Objective Patient sleeping well in a supine position with no signs of respiratory compromise when i walked into the room. After he awoke and attempted to communicate he should no signs of respiratory compromise. VS: Stable on 3Lnc Total--I/Os: -4L Last 24 hours: +50ml with only 300cc urine output. RESP: decreased BS with dullnes to percution of the LLL with increased ariration of the RLL but rhonchi noted CARDIAC: RRR with distant heart sounds ABD: Soft nontender Labs: Pleural pH: 7.63 TPro:1.8 LDH:69 Glu:119 Amylase: 20 Chol: pending Pathology: Pending CXR: dramatic improvement in the right sided pleural effusion. Assessment & Plan 86-year-old gentleman with bilateral pleural effusions: #1: Pleural Effusions: The right sided PE is trasnudative based off he laboratory studies and is consistent with an etiology of post SIRS with associated malnutrition and mild diastolic heart failure. The patient speak little to no Welsh but appears to demonstrate little overall improvement in his respiratory status after the thoracentesis but his CXR shows dramatic improvement. I will speak with the daughter later today but suggest we hold off on left sided procedure/thoracentesis at this time. Data Medications: Current Inpatient Medications Medications (Trade) Dose Ordered Sig/Malik Route Start Time Stop Time Status Last Admin Dose Admin Diltiazem HCl 125 mg/Dextrose 125 ml @ 5 mls/hr Q24H PRN IV 12/21/16 01:00 01/20/17 00:59 12/23/16 06:35 5 MLS/HR Morphine Sulfate (MoRPHine SULFATE INJ) 4 mg Q3H PRN IV 12/21/16 02:30 01/04/17 02:29 12/31/16 00:16 4 MG Acetaminophen (Tylenol Tab) 650 mg Q4H PRN PO 12/21/16 02:45 01/20/17 02:44 12/26/16 07:48 650 MG Senna/Docusate Sodium (Senokot S Tab) 1 tab DAILY PO 12/21/16 09:00 01/20/17 08:59 12/31/16 09:20 1 TAB Docusate Sodium (coLACE CAP) 100 mg BID PO 12/22/16 21:00 01/21/17 20:59 12/31/16 20:34 100 MG Polyethylene (Miralax Powder Packet) 17 gm DAILY PRN PO 12/22/16 10:15 01/21/17 10:14 12/29/16 19:35 17 GM Miscellaneous (Soap Suds Enema) 1 ea DAILY PRN TX 12/25/16 09:00 01/24/17 08:59 Dutasteride (Avodart) 0.5 mg DAILY PO 12/24/16 09:00 01/23/17 08:59 12/31/16 09:21 0.5 MG Finasteride (Proscar Tab) 5 mg DAILY PO 12/24/16 09:00 01/23/17 08:59 12/31/16 09:21 5 MG Aspirin (Ecotrin Tab) 81 mg QAM PO 12/27/16 09:00 01/26/17 08:59 12/31/16 09:20 81 MG Metoprolol Tartrate (Lopressor Tab) 50 mg BID PO 12/28/16 21:00 01/22/17 20:59 12/31/16 20:35 50 MG Acetaminophen/ Hydrocodone Bitart ([place] 5/325 Tab) 1 tab Q4H PRN PO 12/29/16 09:30 01/12/17 09:29 12/31/16 20:35 1 TAB Ceftriaxone Sodium 2000 mg/ Dextrose 70 ml @ 100 mls/hr Q24H IV 12/30/16 10:00 02/21/17 09:59 12/31/16 09:22 100 MLS/HR Heparin Sodium (Porcine) (Heparin 10 Unit/ ml 5 ml Flush) 5 ml PRN PRN FLUSH 01/01/17 00:15 01/31/17 00:14 Vital Signs: Date Time Temp Pulse Resp B/P (MAP) Pulse Ox O2 Delivery O2 Flow Rate FiO2 01/01/17 05:00 158/82 (107) 01/01/17 04:00 Nasal Cannula 3.0 01/01/17 03:48 36.7 69 16 169/87 (114) 94 3.0 01/01/17 00:00 36.9 70 20 104/93 (97) 94 Nasal Cannula 3.0 01/01/17 00:00 Nasal Cannula 3.0 12/31/16 20:00 98 Nasal Cannula 2.0 12/31/16 19:20 36.8 73 21 140/76 (97) 98 Nasal Cannula 3.0 12/31/16 16:00 Nasal Cannula 2.0 12/31/16 15:30 36.4 66 18 150/99 (116) 93 Nasal Cannula 3.0 12/31/16 12:00 Nasal Cannula 2.0 12/31/16 11:13 36.4 68 20 162/100 (120) 95 12/31/16 09:00 81 Room Air 12/31/16 08:00 Nasal Cannula 2.0 12/31/16 07:52 36.7 75 20 179/100 (126) 97 Nasal Cannula 3.0 Laboratory Results: Last 24 Hours Test 12/31/16 08:06 12/31/16 17:40 Sodium Level 140 mmol/L Potassium Level 3.8 mmol/L Chloride Level 103 mmol/L Carbon Dioxide Level 31 mmol/L Anion Gap 6.0 mmol/L Blood Urea Nitrogen 6 mg/dl Creatinine 0.72 mg/dl Est Creatinine Clear Calc Drug Dose 65.2 ml/min Estimated GFR () 97.2 Estimated GFR (Non- 83.9 BUN/Creatinine Ratio 8.8 Random Glucose 87 mg/dl Calcium Level 8.2 mg/dl Pleural Fluid Total Protein 1.8 g/dl Pleural Fluid LDH 69 IU Pleural Fluid Glucose 119 mg/dl Pleural Fluid Amylase 20 U/L
[2017-01-01] MEDS: FINASTERIDE 5 MG PO SCH (08:07)
[2017-01-01] MEDS: METOPROLOL TARTRATE 50 MG TAB PO SCH (08:08)
[2017-01-01] MEDS: DOCUSATE SODIUM 100 MG CAP PO SCH (08:08)
[2017-01-01] MEDS: ASPIRIN 81 MG ECTAB PO SCH (08:08)
[2017-01-01] MEDS: DOCUSATE SODIUM/SENNA 50/8.6MG TAB PO SCH (08:08)
[2017-01-01] MEDS: HYDROCODONE/ACETAMOPHEN 5/325MG TAB PO PRN ×2 (08:11→14:35)
[2017-01-01] MEDS: CEFTRIAXONE SOD INJ 2,000 MG in DEXTROSE 5% 50ML 50 ML IV SCH (09:36)
[2017-01-01] MEDS ORDERED: POTASSIUM CHLORIDE 10 MEQ TABCR PO STA (10:16)
[2017-01-01] MEDS ORDERED: FUROSEMIDE INJ 40 MG in SYRINGE 0 ML IV STA (10:16)
[2017-01-01] MEDS ORDERED: FURO-85 PO (10:24)
[2017-01-01] MEDS ORDERED: POTA8CAP6 PO (10:24)
--- NOTE | 2017-01-01 10:33 | Discharge Instructions ---
Discharge Instructions Date of Service Jan 01, 2017. Admission Reason for Admission: Sepsis Discharge Discharge Diagnosis / Problem: sepsis, osetomyelitis,ILIOPSOAS ABSCESS, pleural effusions, mild chf Discharge Goals Goal(s): Decrease discomfort, Improve function Activity Recommendations Activity Limitations: resume your previous activity . Instructions / Follow-Up Instructions / Follow-Up FOLLOWUP WITH FAMILY DOCTOR ON December AT 11:15AM. FOLLOWUP WITH PULMONARY IN 2 WEEKS FOR PLEURAL EFFUSIONS IN 2 WEEKS ( [address] [facility], [address], [place] [id number] ). LAB: BMP WITH MG LEVELS IN ONE WEEK AND FOLLOW RESULTS WITH FAMILY DOCTOR STARTED ON LASIX. TO TAKE POTASSIUM SUPPLEMENTS WHEN TAKING LASIX UNLESS FURTHER INSTRUCTIONS FROM FAMILY DOCTOR. TO CONTINUE LASIX UNTIL FURTHER INSTRUCTIONS FROM FAMILY DOCTOR . FOLLOWUP WITH INFECTIOUS DISEASE OR GABBI PAZ PRIOR TO COMPLETION OF IV ANTIBIOTICS.( MAY NEED HOTEL GENERAL MANAGER ORAL ANTIBIOTICS) Call your Primary Care doctor if any of the following symptoms or problems start or get worse: * Shortness of breath or difficulty breathing * Wake up at night short of breath * Chest pain * Cough * Swelling of your hands, feet, or legs * More fatigued or tired with your normal activity * Palpitations - sudden fast heart beats WEIGHT * Weigh yourself every morning after using the bathroom. * Use the same scale. * Wear the same amount of clothing. * Write your weight down on a chart. * Call your Primary Care doctor if you gain more than 2-3 pounds in 1-2 days. MEDICATIONS * Use this discharge instruction sheet for medication instructions. * Take your medications at the time your doctor ordered. * Do not skip a dose of your medicines. * If you miss a dose of medicine, take it as soon as possible, but DO NOT DOUBLE A DOSE. * Read your medicine information when you get home. * Know all of the side effects of your medicine. If in doubt, ask your pharmacist * Call your Primary Care doctor's office if you have any side effects. * Be sure all of your doctors know what medicine and herbs you take (including cold, flu, and herbal medicine). Take the following with you to your follow-up doctor appointments: * Weight Chart * Medication List * List of questions Do not drink excessive alcohol, beer or wine. Current Hospital Diet Patient's current hospital diet: Regular Diet Discharge Diet Recommended Diet: AHA Diet (Heart Healthy) Pending Studies Studies pending at discharge: no Laboratory Results Hemoglobin A1c Test 10/17/16 05:36 Range/Units Estimated Average Glucose 123 mg/dl Hemoglobin A1c 5.9 H 4.5-5.6 % Lipid Panel Test 10/17/16 05:36 Range/Units Triglycerides Level 157 H 0-150 mg/dl Cholesterol Level 69 0-200 mg/dl HDL Cholesterol 8 mg/dl Cholesterol/HDL Ratio 8.6 LDL Cholesterol, Calculated 30 mg/dl Medical Emergencies . Who to Call and When: Call 911 or go to the Emergency Room if: * If at any time you feel your situation is an emergency * You have tightness or pain in your chest that does not go away with rest or Nitroglycerin * You are very short of breath even with rest . Non-Emergent Contact Non-Emergency issues call your: Primary Care Provider . . "Provider Documentation" section prepared by Dragan Cabral. . VTE Core Measure Inpt VTE Proph given/why not?: SCD's
[2017-01-01] MEDS ORDERED: HYDR-5688 PO (10:39)
--- NOTE | 2017-01-01 18:26 | Progress Note ---
Internal Med Progress Note Date of Service: Jan 01, 2017. Provider Documentation: SUBJECTIVE: does not speak [place] afebrile seems comfortable hemodynamics stable OBJECTIVE: Vital Signs-as noted below Exam: General-alert and awake. Not in distress ENT-Normal hearing Neck-no neck masses, supple Lungs-cta b/l no wheezing or crackles Heart-s1 and s2 heard regular rate and rhythm, no murmurs Abdomen-soft bowel sounds present non tender no distension Extremities-no edema, no erythema Neuro-alert and awake moves extremities Lab data as noted below. 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 Urine cx klebsiella currently on iv Rocephin 2gm daily s/p PICC line placed Family want to take him home needs total of 8weeks of iv abx and possible po abx later. ramila f/u with pcp and ID A FIB Noted to be in RVR on Admission Did not take his BB Received IV Cardizem Lopressor dose increased to 50mg bid. Now in SR on Aspirin only because of hematoma -detailed discussion with the Daughter by Dr.Datta bourgeois f/u with pcp HISTORY OF RECENT NSTEMI WITH CHF denies chest pain mild acute diastolic chf CHF TO CONTINUE CURRENT MEDICATIONS added lasix and potassium supplements followup with pcp f/u BMP with pcp as started on Lasix and kcl supplement. 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 No acute issue and no surgery DVT Prophylaxis SCDs No pharmacologic anticoagulation due to iliopsoas hematoma DNR per family Discharged home with home health Vital Signs: Date Time Temp Pulse Resp B/P (MAP) Pulse Ox O2 Delivery O2 Flow Rate FiO2 01/01/17 16:19 36.4 62 16 137/65 (89) 97 Nasal Cannula 3.0 01/01/17 16:00 Nasal Cannula 3.0 01/01/17 12:00 Nasal Cannula 2.0 97 01/01/17 11:58 36.9 67 20 134/67 (89) 96 Nasal Cannula 3.0 01/01/17 10:58 36.8 65 20 98 Nasal Cannula 01/01/17 08:32 36.8 65 20 154/77 (102) 98 3.0 01/01/17 08:00 Nasal Cannula 2.0 01/01/17 05:00 158/82 (107) 01/01/17 04:00 Nasal Cannula 3.0 01/01/17 03:48 36.7 69 16 169/87 (114) 94 3.0 01/01/17 00:00 36.9 70 20 104/93 (97) 94 Nasal Cannula 3.0 01/01/17 00:00 Nasal Cannula 3.0 12/31/16 20:00 98 Nasal Cannula 2.0 12/31/16 19:20 36.8 73 21 140/76 (97) 98 Nasal Cannula 3.0
--- NOTE | 2017-01-01 19:52 | Discharge Summary ---
Discharge Summary Date of Service Jan 01, 2017. 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 PLEURAL EFFUSIONS Secondary Diagnoses/Problems: 1) BPH (benign prostatic hyperplasia) Status: Chronic (2) Chronic back pain Status: Chronic (3) Diastolic CHF Status: Chronic (4) PAF (paroxysmal atrial fibrillation) Status: Chronic (5) Urinary retention Status: Chronic Procedures: CT ABD/PELVIS: 1. Nonobstructive bowel pattern. 2. Findings of a developing mass or bony destructive change involving the L3 and to a lesser extent L2 vertebral body and associated disc. 3. This is associated with a previously described collection of the right iliopsoas as well has interval enlargement of the left iliopsoas musculature. 4. This is highly suggestive of developing osteomyelitis and discitis of the L2 and L3 vertebral bodies as well as a minimum L2-L3 intervertebral disc. 5. The enlargement of the left iliopsoas potentially relates to extension of infectious process to that structure as well as the left lateral superior pelvic sidewall region. 6. Produces described infarct of the spleen considered stable. THORACIC SPINE CT: Degenerative change. No acute bony abnormality. Bilateral pleural effusions. LUMBAR SPINE CT: 1. Developing destructive changes involving the superior endplate of L3, inferior endplate of L2, with less prominent findings involving the superior endplate and associated disc at L1-L2.. 2. Progressive enlargement of the left iliopsoas muscle as compared to the prior study raising the possibility of surrounding soft tissue component and/or secondary focus of hemorrhage or developing abscess formation. 3. Pre-existing abscess of the right so as to muscle similar in appearance to the prior CT abdomen and pelvis. 4. The appearance is most consistent with that of discitis at L2-L3 and to a lesser extent L1-L2 5. A destructive changes and associated sclerosis suggest secondary osteomyelitis involving the superior aspect of the L3 vertebral body as well as the bulk of the L2 vertebral body. 6. The surrounding soft tissue changes of the psoas musculature suggests developing and or pre-existing soft tissue inflammatory or infectious-type change, all of which are progressive compared to the prior study. 7. No evidence for a compression deformity. LUMBAR SPINE MRI: 1. There is significant abnormality again seen at the L2-L3 disc which is largely replaced with T2 hyperintense material/fluid. Additionally, there is significant destructive change within the adjacent L2 and L3 endplates and marked marrow edema. The appearance is typical for discitis/osteomyelitis. 2. There is fluid signal also seen within the L1-L2 as well as the L3-L4 disc spaces. There is no destructive endplate change identified at these levels. This is indeterminant and could be on a degenerative basis or could also represent discitis. 3. There is no evidence of epidural fluid collection. 4. There is marked intramuscular edema seen within the right-sided paraspinous musculature as well as the iliopsoas musculature. The appearance is consistent with myositis. Bilateral psoas muscle collections are again seen and typical in appearance for abscesses. 5. Multilevel spondylotic change with acquired compromise of the central canal. See discussion for detailed level by level analysis. CXR: Stable findings. Pulmonary edema pattern with bilateral pleural effusions and bibasal airspace opacities CHEST US: Moderate pleural effusions ECHO: * The left ventricle is normal in size. * The left ventricular wall motion is normal. * Ejection Fraction = 65-70%. * The aortic valve is moderately calcified with restricted mobility * No hemodynamically significant valvular aortic stenosis. * Trace aortic regurgitation. * There is mild to moderate mitral annular calcification. * There is moderate mitral regurgitation. * There is mild tricuspid regurgitation. * Right ventricular systolic pressure is elevated at 40-50mmHg. Study is technically insufficient to exclude vegetation Consultations: ID ORTHOPEDICS SURGERY PULMONARY Medication Reconciliation New Medications: Furosemide (Lasix) 20 Mg Tab 20 MG PO DAILY for 30 Days, #30 TAB 2 Refills Hydrocodone/Acetaminophen 5MG/325MG (Thomson 5MG/325MG) Tab 1 TABLET PO Q6 PRN for Pain, #30 TAB PRN PAIN Potassium Chloride (Klor-Con Ext Rel) 8 Meq Tabcr 8 MEQ PO DAILY for 30 Days, #30 CAP 2 Refills Sennosides-Docusate Sodium (Senokot S) 1 Tab Tab 2 TAB PO HS PRN for Constipation, #60 TAB 1 Refill Aspirin (Aspirin EC Low Dose) 81 Mg Ectab 81 MG PO QAM, #30 2 Refills Metoprolol Tartrate (Metoprolol Tartrate) 50 Mg Tab 50 MG PO BID, #60 TAB 2 Refills Polyethylene (Miralax) 17 Gm Pow 17 GM PO DAILY PRN for Constipation for 30 Days, 1 Refill Continued Medications: Acetaminophen (Tylenol) 500 Mg Tab 500 MG PO Q4 PRN for Pain or Fever, TAB Dutasteride (Avodart) 0.5 Mg Cap 0.5 MG PO DAILY, CAP Nitroglycerin (Nitrostat) 0.4 Mg Tab 0.4 MG UT PRN, BTL Tamsulosin Hcl (Flomax) 0.4 Mg Cap 0.4 MG PO DAILY, CAP Discontinued Medications: Docusate Sodium (Colace) 100 Mg Cap 1 CAP PO BID PRN for Constipation for 15 Days, #30 CAP Hydrocodone/Acetaminophen 5MG/325MG (Thomson 5MG/325MG) Tab 1 TAB PO HS PRN for Pain for 10 Days, #10 TAB PRN PAIN Metoprolol Tartrate (Lopressor) (Lopressor) 25 Mg Tab 25 MG PO BID, TAB Sennosides-Docusate Sodium (Senna-S) 1 Tab Tab 1 TAB PO DAILY PRN for Constipation Warfarin Sod (Coumadin) 2.5 Mg Tab 0.5-1 TAB PO DAILY, TAB Admission Information HPI (per Admitting provider): 86 year old male with history of recent diagnosis of Ileopsoas abscess, Chronic A fib on coumadin, NSTEMI, CHF, DVT, Chronic Urinary Retention on Murray catheter presenting with increasing back pain. History obtained from patient's daughters at the bedside as the patient speaks Filipino only. Patient was recently admitted earlier this month for Ileopsoas Abscess and was discharged on PO Clindamycin. As per his daughters, patient has been having progressive abdominal and lower back pain since. No fever/chills, headache, chest pain, dyspnea, changes with bowel movements. At the ER, patient arrived tachycardic, afebrile. WBC elevated at 14k and INR also supratherapeutic at 5. CT lumbar spine showed possible L2-L3 Osteomyelitis or Discitis. CT abdomen showed enlarging Left Ileopsoas muscle, possible underlying abscess vs. hematoma. He was started on IV fluids, Vanco and Zosyn. While being observed at the ER, patient also developed RVR with hypotension. He was given additional IV fluids and started on Diltiazem. On exam, patient was alert, but feels weak. Morphine IV affords pain relief. Denies active shortness of breath, palpitations, dizziness, chest pain, nausea. No other symptoms Physical Exam (per Admitting): General Appearance: WD/WN, no apparent distress Head: normocephalic, atraumatic Eyes: normal inspection, PERRL, EOMI, sclerae normal ENT: normal ENT inspection, hearing grossly normal, pharynx normal, + pertinent finding (erythema, scabbing on the nasal septum, right side) Neck: supple, thyroid normal Respiratory/Chest: chest non-tender, lungs clear, normal breath sounds, no respiratory distress, no accessory muscle use Cardiovascular: no JVD, no murmur, + tachycardia (mild), + irregularly irregular Abdomen/GI: normal bowel sounds, non tender, soft Back: + pertinent finding (not performed as patient has severe pain with minimal movement) Extremities/Musculoskelatal: normal inspection, no calf tenderness 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, no motor/sensory deficits, alert , normal mood/affect, oriented x 3 Skin: normal color, warm/dry Lymphatic: no adenopathy Physical Exam (per Admitting): General Appearance: WD/WN, no apparent distress Head: normocephalic, atraumatic Eyes: normal inspection, PERRL, EOMI, sclerae normal ENT: normal ENT inspection, hearing grossly normal, pharynx normal, + pertinent finding (erythema, scabbing on the nasal septum, right side) Neck: supple, thyroid normal Respiratory/Chest: chest non-tender, lungs clear, normal breath sounds, no respiratory distress, no accessory muscle use Cardiovascular: no JVD, no murmur, + tachycardia (mild), + irregularly irregular Abdomen/GI: normal bowel sounds, non tender, soft Back: + pertinent finding (not performed as patient has severe pain with minimal movement) Extremities/Musculoskelatal: normal inspection, no calf tenderness 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 Urine cx klebsiella currently on iv Rocephin 2gm daily s/p PICC line placed Family want to take him home needs total of 8weeks of iv abx and possible po abx later. gabies f/u with pcp and ID A FIB Noted to be in RVR on Admission Did not take his BB Received IV Cardizem Lopressor dose increased to 50mg bid. Now in SR on Aspirin only because of hematoma -detailed discussion with the Daughter by Dr.Datta bourgeois f/u with pcp HISTORY OF RECENT NSTEMI WITH CHF denies chest pain mild acute diastolic chf CHF TO CONTINUE CURRENT MEDICATIONS added lasix and potassium supplements followup with pcp f/u BMP with pcp as started on Lasix and kcl supplement. 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 Discharge Instructions Discharge Instructions Date of Service Jan 01, 2017. Admission Reason for Admission: Sepsis Discharge Discharge Diagnosis / Problem: sepsis, osetomyelitis,ILIOPSOAS ABSCESS, pleural effusions, mild chf Discharge Goals Goal(s): Decrease discomfort, Improve function Activity Recommendations Activity Limitations: resume your previous activity . Instructions / Follow-Up Instructions / Follow-Up FOLLOWUP WITH FAMILY DOCTOR ON December AT 11:15AM. FOLLOWUP WITH PULMONARY IN 2 WEEKS FOR PLEURAL EFFUSIONS IN 2 WEEKS ( [address] [facility], [place] [address] ). LAB: BMP WITH MG LEVELS IN ONE WEEK AND FOLLOW RESULTS WITH FAMILY DOCTOR STARTED ON LASIX. TO TAKE POTASSIUM SUPPLEMENTS WHEN TAKING LASIX UNLESS FURTHER INSTRUCTIONS FROM FAMILY DOCTOR. TO CONTINUE LASIX UNTIL FURTHER INSTRUCTIONS FROM FAMILY DOCTOR . FOLLOWUP WITH INFECTIOUS DISEASE OR GABBI PAZ PRIOR TO COMPLETION OF IV ANTIBIOTICS.( MAY NEED GAUGE MAKER APPRENTICE ORAL ANTIBIOTICS) Call your Primary Care doctor if any of the following symptoms or problems start or get worse: * Shortness of breath or difficulty breathing * Wake up at night short of breath * Chest pain * Cough * Swelling of your hands, feet, or legs * More fatigued or tired with your normal activity * Palpitations - sudden fast heart beats WEIGHT * Weigh yourself every morning after using the bathroom. * Use the same scale. * Wear the same amount of clothing. * Write your weight down on a chart. * Call your Primary Care doctor if you gain more than 2-3 pounds in 1-2 days. MEDICATIONS * Use this discharge instruction sheet for medication instructions. * Take your medications at the time your doctor ordered. * Do not skip a dose of your medicines. * If you miss a dose of medicine, take it as soon as possible, but DO NOT DOUBLE A DOSE. * Read your medicine information when you get home. * Know all of the side effects of your medicine. If in doubt, ask your pharmacist * Call your Primary Care doctor's office if you have any side effects. * Be sure all of your doctors know what medicine and herbs you take (including cold, flu, and herbal medicine). Take the following with you to your follow-up doctor appointments: * Weight Chart * Medication List * List of questions Do not drink excessive alcohol, beer or wine. Current Hospital Diet Patient's current hospital diet: Regular Diet Discharge Diet Recommended Diet: AHA Diet (Heart Healthy) Pending Studies Studies pending at discharge: no Laboratory Results Hemoglobin A1c Test 10/17/16 05:36 Range/Units Estimated Average Glucose 123 mg/dl Hemoglobin A1c 5.9 H 4.5-5.6 % Lipid Panel Test 10/17/16 05:36 Range/Units Triglycerides Level 157 H 0-150 mg/dl Cholesterol Level 69 0-200 mg/dl HDL Cholesterol 8 mg/dl Cholesterol/HDL Ratio 8.6 LDL Cholesterol, Calculated 30 mg/dl Medical Emergencies . Who to Call and When: Call 911 or go to the Emergency Room if: * If at any time you feel your situation is an emergency * You have tightness or pain in your chest that does not go away with rest or Nitroglycerin * You are very short of breath even with rest . Non-Emergent Contact Non-Emergency issues call your: Primary Care Provider . . "Provider Documentation" section prepared by Dragan Cabral. . VTE Core Measure Inpt VTE Proph given/why not?: SCD's
[2017-01-27] MEDS ORDERED: NTRGSL/4 UT (15:43)
[2017-01-27] MEDS ORDERED: ACET-1256 PO (15:43)
[2017-01-27] MEDS ORDERED: DUTA0.5C PO (15:46)
[2017-01-27] MEDS ORDERED: TAMS0.4C38 PO (15:46)
== END 2017-01-01 18:41 | disposition home health service (06) | DRG 871 ==
LOC: ENRESERVTM → ENRESERVDT → EDBD 19:49 → C.EDB 19:51 → C.MSICU 12-21 02:25 → C.2E 12-22 18:36
PROVIDERS: ADMIT Internal Medicine; ATTEND Internal Medicine
PROC: 0W993ZX Drainage of Right Pleural Cavity, Percutaneous Approach, Diagnostic (ICD-10-PCS; principal; 2016-12-31)
DX: A41.9 Sepsis, unspecified organism (principal); I50.33 Acute on chronic diastolic (congestive) heart failure; T83.511A Infection and inflammatory reaction due to indwelling urethral catheter, initial encounter; M60.08 Infective myositis, other site; M46.26 Osteomyelitis of vertebra, lumbar region; N39.0 Urinary tract infection, site not specified; M46.46 Discitis, unspecified, lumbar region; Z79.01 Long term (current) use of anticoagulants; N40.1 Benign prostatic hyperplasia with lower urinary tract symptoms; I48.0 Paroxysmal atrial fibrillation; Z87.891 Personal history of nicotine dependence; I48.2 Chronic atrial fibrillation; R33.9 Retention of urine, unspecified; I25.2 Old myocardial infarction; Z86.718 Personal history of other venous thrombosis and embolism; Y84.6 Urinary catheterization as the cause of abnormal reaction of the patient, or of later complication, without mention of misadventure at the time of the procedure; Y92.009 Unspecified place in unspecified non-institutional (private) residence as the place of occurrence of the external cause

== ENCOUNTER → 2017-01-15 | Outpatient (CLI) | payer OTHER ==
[~2017-01-15] MED LIST changes: +ACET-1256 PO; +ASPEC81 PO; +ASPI81TA28 PO; +CEPH500C2 PO; +CIPR-255 PO; -CMD/25 PO; -DOCU-94 PO; +DUTA0.5C PO; +FURO-85 PO; +KFL/250 PO; -METO25TA56 PO; +METO50TA16 PO; +METO50TA17 PO; +MRLP17X PO; +NF656 TOP; +NTRGSL/4 UT; +OXYC-643 PO; +POLY1POW2 PO; +POTA1CAP PO; +POTA8CAP6 PO; -SENN-104 PO; +SENN-65 PO; +SENN8.6T7 PO; +SULF800T23 PO; +TAMS0.4C38 PO; -ULT50X PO; +VANC5CAP PO
--- NOTE | 2017-01-15 11:14 | DIAGNOSTIC IMAGING REPORT ---
TWO VIEW CHEST CLINICAL HISTORY: Pleural effusions. FINDINGS: AP and lateral chest radiographs are compared to study dated 01/01/2017. The AP view is degraded by patient rotation. A right PICC line is unchanged in position. The heart is top normal for projection and there is atherosclerotic calcification of the thoracic aorta. The pulmonary vasculature is noncongested. Chronic interstitial thickening is similar to previous. There are small pleural effusions with bibasilar airspace opacities. There is no pneumothorax. The skeletal structures are osteopenic. The bony thorax appears intact. IMPRESSION: Small pleural effusions with bibasilar airspace opacities. This likely represents atelectasis. Cortical clinically for evidence of a superimposed infectious/inflammatory pneumonitis. Electronically signed by: Edvin Sidhu M.D. 01/15/2017 11:13 AM Dictated Date/Time: 01/15/2017 11:11 AM
== END | disposition home or self-care (01) ==
LOC: C.RADBBURG 10:42
PROVIDERS: ATTEND Physician Assistant
DX: J90 Pleural effusion, not elsewhere classified (principal); R91.8 Other nonspecific abnormal finding of lung field

== ENCOUNTER 2017-01-27 17:52 | Emergency (ER) | payer OTHER ==
[~2017-01-27] VITALS: Ht 170.2 cm; Wt 60.5 kg
[~2017-01-27 17:52] MED LIST changes: -ASPI81TA28 PO; -CEPH500C2 PO; -CIPR-255 PO; -KFL/250 PO; -LCTX PO; -METO50TA16 PO; -NF656 TOP; -OXYC-643 PO; -POLY1POW2 PO; -POTA1CAP PO; -SENN-65 PO; -SULF800T23 PO; -VANC5CAP PO
[2017-01-27 17:58] VITALS: TEMP 36.8; Ht 170.2 cm; Wt 60.5 kg
--- NOTE | 2017-01-27 18:17 | EMERGENCY ROOM VISIT NOTE ---
History Report prepared by Chloe: Blossom Hernández Under the Supervision of: Dr. James Nazario M.D. First contact with patient: 17:57 Stated Complaint: AB & BACK PAIN History of Present Illness The patient is an 86 year old male who presents to the Emergency Room with complaints of persistent suprapubic abdominal pain starting today. The patient' s daughter provides the history. The patient has a catheter in place. Last night , the urine was cloudy and with a lot of sediment. There was no blood in the urine. This morning, there was no urine in the bag. The patient has been complaining of a burning pain in his lower abdomen and around his back. He normally has numbness around his suprapubic region so does not often feel pain. He has also been having high blood pressure starting yesterday. His blood pressure is usually normal. Source of History: family Onset: today Position: abdomen (suprapubic) Quality: burning Timing: other (persistent) Associated Symptoms: + back pain Note: Pt has decreased urine output, cloudy urine. Review of Systems All systems have been listed, reviewed, and are negative other than those previously mentioned. Please see Additional Medical History Sheet. Past Medical & Surgical Medical Problems: (1) BPH (benign prostatic hyperplasia) (2) Chronic back pain (3) Diastolic CHF (4) PAF (paroxysmal atrial fibrillation) (5) Sepsis (6) Urinary retention Surgical Problems: (1) No pertinent past surgical history Family History Patient reports no known family medical history. Social History Smoking Status: Never Smoker Alcohol Use: none Drug Use: none Marital Status: Housing Status: lives with significant other Occupation Status: retired Current/Historical Medications Scheduled Aspirin (Aspirin Ec), 81 MG PO DAILY Dutasteride (Avodart), 0.5 MG PO DAILY Furosemide (Lasix), 20 MG PO DAILY Metoprolol Tartrate (Lopressor) (Lopressor), 50 MG PO BID Potassium Chloride (Potassium Chloride Er), 8 MEQ PO DAILY Sulfa/Trimethoprim (Bactrim Ds 800MG/160MG), 1 TAB PO BID Tamsulosin Hcl (Flomax), 0.4 MG PO HS Scheduled PRN Acetaminophen (Tylenol), 500 MG PO Q4H PRN for Pain or Fever Hydrocodone/Acetaminophen 5MG/325MG ([place] 5MG/325MG), 1 TABLET PO Q6H PRN for Mild Pain Lidocaine (Lidoderm Patch 5%), 1 PATCH TOP DAILY PRN for Pain Nitroglycerin (Nitrostat), 0.4 MG UT UD PRN for Chest Pain Oxycodone/Acetaminophen 5MG/325MG (Oxycodone/Acetaminophen 5MG/325MG), 1 TABLET PO Q4H PRN for Pain Polyethylene Glycol 3350 (Bulk (Polyethylene Glycol 3350), 17 GM PO DAILY PRN for Constipation Senna/Docusate Sod (Senokot S), 2 TABS PO HS PRN for Constipation Allergies Coded Allergies: No Known Allergies (Verified , 10/16/16) Physical Exam Vital Signs Date Time Temp Pulse Resp B/P (MAP) Pulse Ox O2 Delivery O2 Flow Rate FiO2 01/27/17 22:28 65 18 175/99 97 01/27/17 17:58 36.8 60 20 189/109 96 Room Air Physical Exam GENERAL: Patient awake, alert, oriented x 3. Patient follows commands. Patient does not appear toxic. Patient is adequately hydrated and well- nourished. SKIN: No erythema, pallor, cyanosis or rash HEENT: Normal head, pupils equal, reactive to light and accommodation. LUNGS: Clear to auscultation. No wheezes, no rales, no rhonchi. HEART: No murmurs. No gallops. No rubs ABDOMEN: Distended and tender over the suprapubic area. No masses, no rebound, no hepatomegaly or splenomegaly. : Genitalia appear normal. Catheter in place. EXTREMITIES: No signs of trauma or infection. NEUROLOGIC: Cranial nerves II-XII within normal limits. No gross motor sensory function deficits. Medical Decision & Procedures Laboratory Results 01/27/17 19:50 01/27/17 19:50 Test 01/27/17 18:10 01/27/17 19:50 Urine Color YELLOW Urine Appearance CLEAR (CLEAR) Urine pH 5.5 (4.5-7.5) Urine Specific [place] 1.013 (1.000-1.030) Urine Protein NEG (NEG) Urine Glucose (UA) NEG (NEG) Urine Ketones NEG (NEG) Urine Occult Blood TRACE (NEG) Urine Nitrite NEG (NEG) Urine Bilirubin NEG (NEG) Urine Urobilinogen NEG (NEG) Urine Leukocyte Esterase MODERATE (NEG) Urine WBC (Auto) 10-30 /hpf (0-5) Urine RBC (Auto) 5-10 /hpf (0-4) Urine Hyaline Casts (Auto) 1-5 /lpf (0-5) Urine Epithelial Cells (Auto) 10-20 /lpf (0-5) Urine Bacteria (Auto) NEG (NEG) Urine Yeast (Auto) PRESENT (NONE PRSENT) Red Blood Count 4.48 M/uL (4.7-6.1) Mean Corpuscular Volume 93.3 fL (80-100) Mean Corpuscular Hemoglobin 30.6 pg (25-34) Mean Corpuscular Hemoglobin Concent 32.8 g/dl (32-36) RDW Standard Deviation 55.7 fL (36.4-46.3) RDW Coefficient of Variation 16.1 % (11.5-14.5) Mean Platelet Volume 10.3 fL (7.4-10.4) Anion Gap 6.0 mmol/L (3-11) Est Creatinine Clear Calc Drug Dose 40.5 ml/min Estimated GFR () 69.6 Estimated GFR (Non- 60.0 BUN/Creatinine Ratio 19.4 (10-20) Calcium Level 9.0 mg/dl (8.5-10.1) Laboratory results as stated above per my review. Medications Administered Medications (Trade) Dose Ordered Sig/Malik Route Start Time Stop Time Status Last Admin Dose Admin Trimethoprim/ Sulfamethoxazole (Septra Ds 800/ 160MG Tab) 1 tab NOW STAT PO 01/27/17 21:50 01/27/17 21:52 DC 01/27/17 22:04 1 TAB ED Course 175: Past medical records reviewed. The patient was evaluated in room C3. A complete history and physical examination was performed. 1825: 750 cc of urine was drained by the nurse. 2035: I reevaluated the patient. He is resting comfortably. 2145: Upon reevaluation, the patient appeared to have improvement of his symptoms. I discussed today's findings with his daughter. She verbalized agreement of the treatment plan. She was discharged home. 2149: Trimethoprim/Sulfamethoxazole 1 tab PO. Medical Decision Nurses notes reviewed. Medical history sheet reviewed. Differential diagnosis includes but is not limited to: urinary retention, prostatic hypertrophy, UTI, blocked urinary catheter. The patient is here with urinary retention. The patient had greater than 600 mL of urine in the bladder. He had a large amount of sediment when it first drained. Urinalysis is consistent with the UTI. The patient is apparently on IV Rocephin at home although that cannot be confirmed. The patient is receiving this antibiotic through home health [facility]. Daughter is unsure of the name of the antibiotic. It is not in med reconciliation or the discharge summary. The patient was started on Bactrim here and will continue that medication at home. Medication Reconciliation: I attest that I have personally reviewed the patient' s current medication list. Blood Pressure Screening: Patient was found to have an elevated blood pressure and was referred to their primary doctor for recheck and further treatment. Impression Primary Impression: Urinary retention Additional Impression: Urinary tract infection Scribe Attestation The scribe's documentation has been prepared under my direction and personally reviewed by me in its entirety. I confirm that the note above accurately reflects all work, treatment, procedures, and medical decision making performed by me. Departure Information Dispostion Home / Self-Care Prescriptions Sulfa/Trimethoprim (Bactrim Ds 800MG/160MG) Tab 1 TAB PO BID, #19 TAB Prov: James Nazario M.D. 01/27/17 Referrals Tamara Toribio D.O. Additional Instructions 1 Bactrim twice a day for 10 days. Follow-up with Dr. Toribio this week regarding the urinary retention/infection and your blood pressure. Continue all of your current medications as prescribed. Problem Qualifiers
[2017-01-27] MEDS ORDERED: NF656 TOP (18:31)
[2017-01-27] MEDS ORDERED: POTA1CAP PO (18:31)
[2017-01-27] MEDS ORDERED: OXYC-643 PO (18:31)
[2017-01-27] MEDS ORDERED: METO50TA16 PO (18:31)
[2017-01-27] MEDS ORDERED: SENN-65 PO (18:37)
[2017-01-27] MEDS ORDERED: POLY1POW2 PO (18:37)
[2017-01-27] MEDS ORDERED: FURO-85 PO (18:37)
[2017-01-27] MEDS ORDERED: HYDR-5688 PO (18:37)
[2017-01-27] MEDS ORDERED: ASPI81TA28 PO (18:37)
[2017-01-27 18:47] LABS: URINE APPEARANCE CLEAR (CLEAR); URINE BILIRUBIN NEG (NEG); URINE COLOR YELLOW; URINE NITRITE NEG (NEG); URINE PH 5.5 (4.5-7.5); URINE SPECIFIC GRAVITY 1.013 (1.000-1.030); UROBILINOGEN NEG (NEG); ZZURINE CULT IF INDIC CATH YES
[2017-01-27 18:49] LABS: MANUAL MICROSCOPIC REQUIRED? NO; REVIEW REQ? YES
[2017-01-27 20:03] LABS: HEMATOCRIT 41.8 % (42-52); MEAN CELL VOLUME 93.3 fL (80-100); MEAN CORPUSCULAR HEMOGLOBIN 30.6 pg (25-34); MEAN CORPUSCULAR HGB CONC 32.8 g/dl (32-36); MEAN PLATELET VOLUME 10.3 fL (7.4-10.4); PLATELET COUNT 119 K/uL (130-400); RED BLOOD COUNT 4.48 M/uL (4.7-6.1); WHITE BLOOD COUNT 8.19 K/uL (4.8-10.8)
[2017-01-27 20:20] LABS: BUN/CREATININE RATIO 19.4 (10-20); CREATININE 1.1 mg/dl (0.60-1.40); POTASSIUM 4.4 mmol/L (3.5-5.1)
[2017-01-27] MEDS ORDERED: SULFAMETHOXAZOLE/TRIMETHOPRIM DS 800/160MG TAB PO STA (21:50)
[2017-01-27] MEDS ORDERED: SULF800T23 PO (21:55)
[2017-01-27 22:28] VITALS: BP 175/99; PULSE 65; O2SAT 97
[2017-04-15] MEDS ORDERED: LCTX PO (12:53)
[2017-04-15] MEDS ORDERED: CIPR-255 PO (12:53)
[2017-04-15] MEDS ORDERED: VANC5CAP PO (12:53)
== END 2017-01-27 22:29 | disposition home or self-care (01) ==
LOC: EDBD 17:52 → C.EDC 17:53
DX: R33.9 Retention of urine, unspecified (principal); N39.0 Urinary tract infection, site not specified; I48.91 Unspecified atrial fibrillation; I50.32 Chronic diastolic (congestive) heart failure; G89.29 Other chronic pain; Z79.82 Long term (current) use of aspirin; Z79.899 Other long term (current) drug therapy

== ENCOUNTER → 2017-02-12 | Outpatient (CLI) | payer OTHER ==
[~2017-02-12] MED LIST changes: -ASPEC81 PO; +ASPI81TA28 PO; +CEPH500C2 PO; +CIPR-255 PO; +KFL/250 PO; +LCTX PO; +METO50TA16 PO; -METO50TA17 PO; -MRLP17X PO; +NF656 TOP; +OXYC-643 PO; +POLY1POW2 PO; +POTA1CAP PO; -POTA8CAP6 PO; +SENN-65 PO; -SENN8.6T7 PO; +SULF800T23 PO; +VANC5CAP PO
[2017-02-12 10:31] LABS: HEMATOCRIT 39.8 % (42-52); MEAN CELL VOLUME 92.8 fL (80-100); MEAN CORPUSCULAR HEMOGLOBIN 29.6 pg (25-34); MEAN CORPUSCULAR HGB CONC 31.9 g/dl (32-36); MEAN PLATELET VOLUME 11.4 fL (7.4-10.4); PLATELET COUNT 105 K/uL (130-400); RED BLOOD COUNT 4.29 M/uL (4.7-6.1); WHITE BLOOD COUNT 7.07 K/uL (4.8-10.8)
[2017-02-12 10:41] LABS: ALT/SGPT 90 U/L (12-78); BLOOD UREA NITROGEN 30 mg/dl (7-18); BUN/CREATININE RATIO 30.9 (10-20); CALCIUM 8.9 mg/dl (8.5-10.1); CARBON DIOXIDE 28 mmol/L (21-32); CHLORIDE 108 mmol/L (98-107); CREATININE 0.96 mg/dl (0.60-1.40); GLUCOSE 166 mg/dl (70-99); POTASSIUM 4.1 mmol/L (3.5-5.1); SODIUM 141 mmol/L (136-145)
[2017-02-12 10:43] LABS: ALB/GLOB RATIO 0.8 (0.9-2); ALKALINE PHOSPHATASE 71 U/L (45-117); AST/SGOT 85 U/L (15-37)
== END | disposition home or self-care (01) ==
LOC: C.LABSPEC 10:19
PROVIDERS: ATTEND Internal Medicine Infectious Disease
DX: Z79.899 Other long term (current) drug therapy (principal)

== ENCOUNTER 2017-02-19 10:34 | Emergency (ER) | payer OTHER ==
[~2017-02-19] VITALS: Ht 152.4 cm; Wt 54.5 kg
[~2017-02-19 10:34] MED LIST changes: -CEPH500C2 PO; -CIPR-255 PO; -KFL/250 PO; -LCTX PO; -VANC5CAP PO
[2017-02-19 10:38] VITALS: TEMP 36.7; Ht 152.4 cm; Wt 54.5 kg
--- NOTE | 2017-02-19 11:00 | EMERGENCY ROOM VISIT NOTE ---
History First contact with patient: 10:47 Chief Complaint: INFECTION Stated Complaint: INFECTION- PICC LINE Nursing Triage Summary: PICC line in R UE to be removed tomorrow , home health nurse in home today to flush picc and change dressing . sent in for eval of site History of Present Illness The patient is a 86 year old male who presents to the Emergency Room for evaluation of PICC line dysfunction. Patient with osteomyelitis diagnosed lumbar spine 2 months ago. Since has been on IV abx via right arm PICC line. Doing well with this. Today home nursing noted grim around PICC line with possible yeast as well as some bleeding. Sent here for further evaluation. Denies other symptoms beyond chronically poor appetite and minimal energy. Denies fevers, chills, nausea, vomiting, headache, passing out, rashes nor other symptoms. Using Noyola as well for urinary retention issues. He has one more dose of IV abx left tomorrow. Review of Systems See HPI for pertinent positives & negatives. A total of 10 systems reviewed and were otherwise negative. Past Medical/Surgical History Medical Problems: (1) BPH (benign prostatic hyperplasia) (2) Chronic back pain (3) Diastolic CHF (4) PAF (paroxysmal atrial fibrillation) (5) Sepsis (6) Urinary retention Surgical Problems: (1) No pertinent past surgical history Family History Patient reports no known family medical history. Social History Smoking Status: Former Smoker Alcohol Use: none Drug Use: none Marital Status: Housing Status: lives with significant other Occupation Status: retired [place] [employer] Current/Historical Medications Scheduled Aspirin (Aspirin Ec), 81 MG PO DAILY Cephalexin Monohydrate (Keflex), 500 MG PO QID Dutasteride (Avodart), 0.5 MG PO DAILY Furosemide (Lasix), 20 MG PO DAILY Metoprolol Tartrate (Lopressor) (Lopressor), 50 MG PO BID Potassium Chloride (Potassium Chloride Er), 8 MEQ PO DAILY Tamsulosin Hcl (Flomax), 0.4 MG PO HS Scheduled PRN Acetaminophen (Tylenol), 500 MG PO Q4H PRN for Pain or Fever Hydrocodone/Acetaminophen 5MG/325MG (Gilchrist 5MG/325MG), 1 TABLET PO Q6H PRN for Mild Pain Lidocaine (Lidoderm Patch 5%), 1 PATCH TOP DAILY PRN for Pain Nitroglycerin (Nitrostat), 0.4 MG UT UD PRN for Chest Pain Polyethylene Glycol 3350 (Bulk (Polyethylene Glycol 3350), 17 GM PO DAILY PRN for Constipation Senna/Docusate Sod (Senokot S), 2 TABS PO HS PRN for Constipation Physical Exam Vital Signs Date Time Temp Pulse Resp B/P (MAP) Pulse Ox O2 Delivery O2 Flow Rate FiO2 02/19/17 11:24 55 18 113/59 99 02/19/17 10:38 36.7 60 20 120/70 99 Room Air Physical Exam GENERAL: Patient is elderly appearing and in no acute distress. Mildly cachectic HEENT: No acute trauma, normocephalic atraumatic, mucous membranes moist, no nasal congestion, no scleral icterus. NECK: No stridor, no adenopathy, no meningismus, trachea is midline. LUNGS: No dyspnea. Clear to auscultation and equal bilaterally. No wheeze, no rhonchi. HEART: Regular rate and rhythm. No murmurs, rubs, gallops appreciated. EXTREMITIES: PICC right upper arm with some mild venous bleeding around it. Normal motion all extremities, no cyanosis, no edema. NEUROLOGIC: Alert and oriented, no acute motor or sensory deficits, no focal weakness, cranial nerves grossly intact. SKIN: No rash, no jaundice, no diaphoresis. Medical Decision & Procedures Medical Decision Pleasant 86 yr old male on IV abx through right arm PICC over last 8 weeks for Osteomyelitis of back. Doing alright recently other than chronically weak and poor appetite. Single more day planned for IV abx. PICC is bleeding, an area of insertion mildly swollen. Reportedly there was white around PICC during dressing change. Reviewed with PCP and ID who agree with PICC removal. Start PO Abx which daughter feels they either already have or is at pharmacy. Stable and in no distress. PICC removed and cultures sent of tip and smear shows no yeast. Reviewed symptoms requiring return. Impression Primary Impression: Bleeding from PICC line Departure Information Dispostion Home / Self-Care Condition POOR Referrals Joy Serna ., PA-C Patient Instructions My [facility] Additional Instructions Please make sure you start his oral antibiotic by tomorrow. If you do not have it or the pharmacy does not have a prescription for it, please contact the infectious disease office to have it sent. Return if fevers, vomiting, altered mental status, passing out or other concerns. We are always here to help.
[2017-02-19] MEDS ORDERED: CEPH500C2 PO (11:22)
[2017-02-19 11:24] VITALS: BP 113/59; PULSE 55; O2SAT 99
[2017-04-15] MEDS ORDERED: CIPR-255 PO (12:53)
[2017-04-15] MEDS ORDERED: LCTX PO (12:53)
[2017-04-15] MEDS ORDERED: VANC5CAP PO (12:53)
== END 2017-02-19 11:26 | disposition home or self-care (01) ==
LOC: C.EDB 10:37 → C.EDC 11:26
DX: T82.838A Hemorrhage due to vascular prosthetic devices, implants and grafts, initial encounter (principal); Y84.8 Other medical procedures as the cause of abnormal reaction of the patient, or of later complication, without mention of misadventure at the time of the procedure; M86.9 Osteomyelitis, unspecified; R33.9 Retention of urine, unspecified; I50.32 Chronic diastolic (congestive) heart failure; I48.0 Paroxysmal atrial fibrillation; N40.0 Benign prostatic hyperplasia without lower urinary tract symptoms; Z87.891 Personal history of nicotine dependence; Z79.899 Other long term (current) drug therapy

== ENCOUNTER → 2017-03-07 | Outpatient (CLI) | payer OTHER ==
[~2017-03-07] MED LIST changes: +CEPH500C2 PO; +CIPR-255 PO; +GADAVIST IV PRN; +KFL/250 PO; +LCTX PO; -OXYC-643 PO; -SULF800T23 PO; +VANC5CAP PO
--- NOTE | 2017-03-07 10:21 | DIAGNOSTIC IMAGING REPORT ---
LUMBAR SPINE COMBINATION CLINICAL HISTORY: 86 years-old Male with M46.46 Lumbar discitis. There is a follow-up study. COMPARISON: Lumbar spine MR 12/25/2016. TECHNIQUE: Multiplanar, multi sequence MRI of the lumbar spine was performed without intravenous contrast. FINDINGS: Extensive bone marrow edema is again noted involving the L2 and L3 vertebral bodies with endplate irregularity and considerable amount of fluid within the disc space at this level. Additionally, there is peripheral enhancement of this disc space with moderate degree of surrounding enhancing edema compatible with discitis osteomyelitis. Enhancing edema is present within the psoas musculature compatible with myositis and phlegmon. No drainable prevertebral or epidural abscess is identified. These findings appear to be similar to the study dated 12/25/2016. Additionally, there is abnormal thickening and enhancement of the epidural tissues at the L2-L3 level suggesting reactive changes without definite peripherally enhancing epidural abscess. The previously noted focal abscess of the left psoas musculature has markedly decreased in size, now measuring 9 x 6 mm, previously 3.6 x 2.7 cm. There is unchanged soft tissue induration and phlegmon within the anterior prevertebral tissues L2-L3, unchanged measuring up to 3.3 cm in craniocaudal dimension without definite abscess. Endplate irregularity with mild edema at the disc space at L1-L2 is again seen, likely degenerative. No significant abnormal enhancement is seen at this level. T12-L1: No central canal or neural foraminal stenosis. L1-L2: Severe intervertebral disc space narrowing with moderate facet arthrosis and facet effusions. Broad-based posterior disc osteophyte complex favoring the left lateral recess causes mild central canal, mild left lateral recess and moderate left foraminal narrowing. Right foramen is patent. Additionally there is a small annular fissure. No significant change. L2-L3: Findings compatible with discitis osteomyelitis as detailed above. Right base posterior disc osteophyte complex formation with severe facet arthrosis and facet effusions with ligamentum flavum redundancy narrows the central canal to 6 mm in AP dimension causing moderate to severe central canal, L3-L4: Severe intervertebral disc space narrowing with broad-based posterior disc osteophyte complex formation, moderate facet arthrosis and ligamentum flavum redundancy. These changes are again seen causing moderate central canal, mild left and severe right foraminal narrowing. L4-L5: Small broad-based posterior disc ossific complex with moderate facet arthrosis, ligament a plate redundancy and facet effusions causing effacement of the ventral thecal sac, mild left and [id number] right foraminal narrowing L5-S1: Small broad-based posterior disc bulge with mild facet arthrosis. There is resultant mild biforaminal narrowing with no significant central canal stenosis. IMPRESSION: 1. Redemonstration of findings compatible with ongoing discitis osteomyelitis at the L2-L3 level without significant change from comparison study. No significant loss of vertebral body height at either of these levels. There is again prevertebral phlegmon with thickening and enhancement of the anterior epidural tissue at L2-L3 without definite prevertebral or epidural abscess at this time. 2. Redemonstration of bilateral psoas and paraspinal myositis with markedly decreased size of the previously described left psoas abscess. 3. Intervertebral disc space narrowing and endplate irregularity at L1-L2 is again seen suggesting degenerative changes rather than discitis osteomyelitis. 4. Multilevel discogenic degenerative changes and facet arthropathy resulting in varying degrees of central canal and foraminal narrowing, unchanged as detailed above. The above report was generated using voice recognition software. It may contain grammatical, syntax or spelling errors. Electronically signed by: Isra Damon M.D. 03/07/2017 10:19 AM Dictated Date/Time: 03/07/2017 10:02 AM
== END | disposition home or self-care (01) ==
LOC: C.MRIBC 08:41
PROVIDERS: ATTEND Internal Medicine Infectious Disease
DX: M46.46 Discitis, unspecified, lumbar region (principal); M86.9 Osteomyelitis, unspecified; M60.9 Myositis, unspecified

== ENCOUNTER 2017-04-11 11:04 | Inpatient (IN) | payer OTHER ==
[~2017-04-11] VITALS: Ht 167.6 cm; Wt 63.9 kg
[~2017-04-11 11:04] MED LIST changes: -CIPR-255 PO; -GADAVIST IV PRN; -KFL/250 PO; -LCTX PO; -VANC5CAP PO
[2017-04-11] MEDS ORDERED: KFL/250 PO (11:14)
[2017-04-11] MEDS ORDERED: CEFTRIAXONE SOD INJ 1 GM ADDVIAL IV STA (11:57)
[2017-04-11] MEDS ORDERED: SODIUM CHLORIDE 0.9% 1000ML 1,000 ML IV STA (11:57)
[2017-04-11 12:40] LABS: MEAN CELL VOLUME 85.1 fL (80-100); MEAN CORPUSCULAR HEMOGLOBIN 28.7 pg (25-34); MEAN CORPUSCULAR HGB CONC 33.8 g/dl (32-36); MEAN PLATELET VOLUME 11.2 fL (7.4-10.4); PLATELET COUNT 117 K/uL (130-400); RED BLOOD COUNT 4.35 M/uL (4.7-6.1); WHITE BLOOD COUNT 25.98 K/uL (4.8-10.8)
--- NOTE | 2017-04-11 12:48 | DIAGNOSTIC IMAGING REPORT ---
CHEST ONE VIEW PORTABLE HISTORY: Evaluate Fever/Sepsis COMPARISON: Chest 01/15/2017. FINDINGS: No pneumothorax. The heart remains mildly enlarged. Bilateral interstitial and vascular thickening has progressed consistent with pulmonary edema. Small bilateral pleural effusions and bibasilar densities have also progressed. IMPRESSION: 1. Interval progression of the mild pulmonary edema and small bilateral pleural effusions. 2. Bibasilar densities have also progressed and may represent atelectasis from the pleural effusions. Electronically signed by: Steve Stern M.D. 04/11/2017 12:46 PM Dictated Date/Time: 04/11/2017 12:45 PM
[2017-04-11 12:51] LABS: INR 1.1 (0.9-1.1); PARTIAL THROMBOPLASTIN RATIO 1.1; PROTHROMBIN TIME (PATIENT) 11.9 SECONDS (9.0-12.0)
[2017-04-11 13:08] LABS: URINE APPEARANCE TURBID (CLEAR); URINE BILIRUBIN NEG (NEG); URINE COLOR DK YELLOW; URINE NITRITE POS (NEG); URINE SPECIFIC GRAVITY 1.023 (1.000-1.030); UROBILINOGEN NEG (NEG); ZZURINE CULT IF INDIC CATH YES
[2017-04-11 13:15] LABS: ALKALINE PHOSPHATASE 98 U/L (45-117); ALT/SGPT 31 U/L (12-78); AST/SGOT 35 U/L (15-37); BLOOD UREA NITROGEN 41 mg/dl (7-18); BUN/CREATININE RATIO 24.2 (10-20); CALCIUM 8.7 mg/dl (8.5-10.1); CARBON DIOXIDE 22 mmol/L (21-32); CHLORIDE 108 mmol/L (98-107); GLUCOSE 147 mg/dl (70-99); POTASSIUM 4.2 mmol/L (3.5-5.1); SODIUM 138 mmol/L (136-145)
[2017-04-11 13:19] LABS: BASO % 0.1 %; BASO ABS # 0.02 K/uL (0-0.2); COMPLETE YES; DOHLE BODIES 2+; ECHINOCYTES 1+; EOS % 0.2 %; IG% 0.9 %; LYMPH % 5.1 %; LYMPH ABS # 1.33 K/uL (1.2-3.4); MONO % 9.3 %; NEUT % 84.4 %; VACUOLIZATION 1+
[2017-04-11 13:20] LABS: MANUAL MICROSCOPIC REQUIRED? YES; REVIEW REQ? NO
[2017-04-11 13:33] LABS: URINE RBC >30 /hpf (0-4)
[2017-04-11 13:36] LABS: URINE BACTERIA NEG (NEG); URINE WBC >30 /hpf (0-5)
[2017-04-11] MEDS ORDERED: ACETAMINOPHEN 325 MG TAB PO PRN (14:45)
[2017-04-11] MEDS ORDERED: ONDANSETRON INJ 2 MG/ML 2 ML VIAL IV PRN (14:45)
[2017-04-11] MEDS ORDERED: SODIUM CHLORIDE 0.9% 1000ML 500 ML IV SCH (15:15)
[2017-04-11] MEDS ORDERED: NITROGLYCERIN 0.4 MG SL PER TAB CHARGE UT PRN (15:15)
[2017-04-11] MEDS ORDERED: VANCOMYCIN CONSULT ACTIVE PRN (15:29)
[2017-04-11] MEDS ORDERED: PIPERACILLIN/TAZOBACTAM 4.5 GM/100ML D5W IV ONE (15:30)
[2017-04-11] MEDS ORDERED: PIPERACILL/TAZOBAC CONSULT ACTIVE PRN (15:30)
--- NOTE | 2017-04-11 15:33 | EMERGENCY ROOM VISIT NOTE ---
History Report prepared by Chloe: Blossom Hernández Under the Supervision of: Dr. Ulysses Patel D.O. First contact with patient: 11:44 Chief Complaint: TACHYCARDIA Stated Complaint: FEVER SINCE SATURDAY, HYPOTENSION, HIGH HEARTRATE Nursing Triage Summary: pt has had fever low bp and high pulse. pt has figueroa appearance. sent here by pcp History of Present Illness The patient is an 86 year old male who presents to the Emergency Room with complaints of persistent fever starting 3 days ago. The patient was sent to the ED from his PCP's office. The patient's daughter states that the patient has had a fever since 3 days ago along with low blood pressure and high heart rate. He seems weak. The patient is currently on antibiotics for an infection. He had some body aches with the fever, but is currently not having any pain. Source of History: family Onset: 3 days ago Position: other (global) Quality: other (fever) Timing: other (persistent) Associated Symptoms: + weakness Note: Pt has low blood pressure, high heart rate. Review of Systems See HPI for pertinent positives & negatives. A total of 10 systems reviewed and were otherwise negative. Past Medical & Surgical Medical Problems: (1) BPH (benign prostatic hyperplasia) (2) Chronic back pain (3) Diastolic CHF (4) Generalized weakness (5) PAF (paroxysmal atrial fibrillation) (6) Sepsis (7) Urinary retention (8) UTI (urinary tract infection) Surgical Problems: (1) No pertinent past surgical history Family History Patient reports no known family medical history. Social History Smoking Status: Never Smoker Alcohol Use: none Drug Use: none Marital Status: Housing Status: lives with significant other Occupation Status: retired Current/Historical Medications Scheduled Aspirin (Aspirin Ec), 81 MG PO DAILY Cephalexin Monohydrate (Keflex), 250 MG PO QID Dutasteride (Avodart), 0.5 MG PO DAILY Furosemide (Lasix), 20 MG PO DAILY Metoprolol Tartrate (Lopressor) (Lopressor), 50 MG PO BID Potassium Chloride (Potassium Chloride Er), 8 MEQ PO DAILY Scheduled PRN Acetaminophen (Tylenol), 500 MG PO Q4H PRN for Pain or Fever Lidocaine (Lidoderm Patch 5%), 1 PATCH TOP DAILY PRN for Pain Nitroglycerin (Nitrostat), 0.4 MG UT UD PRN for Chest Pain Polyethylene Glycol 3350 (Bulk (Polyethylene Glycol 3350), 17 GM PO DAILY PRN for Constipation Senna/Docusate Sod (Senokot S), 2 TABS PO HS PRN for Constipation Allergies Coded Allergies: No Known Allergies (Verified , 10/16/16) Physical Exam Vital Signs Date Time Temp Pulse Resp B/P (MAP) Pulse Ox O2 Delivery O2 Flow Rate FiO2 04/11/17 14:05 78 18 103/53 04/11/17 13:18 37.1 95/49 04/11/17 12:27 78 22 119/71 93 Room Air 04/11/17 12:03 75 04/11/17 11:07 37.1 77 16 98/65 95 Room Air Physical Exam CONSTITUTIONAL/VITAL SIGNS: Reviewed / noted above. GENERAL: Non-toxic in appearance. Generalized weakness. INTEGUMENTARY: Warm, dry, and Joes. HEAD: Normocephalic. EYES: without scleral icterus or trauma. ENT/OROPHARYNX: clear and moist. LYMPHADENOPATHY/NECK: Is supple without lymphadenopathy or meningismus. RESPIRATORY: Lungs clear and equal. CARDIOVASCULAR: Regular rate and rhythm. GI/ABDOMEN: Soft and nontender. No organomegaly or pulsatile mass. No rebound or guarding. Normal bowel sounds. : Indwelling Noyola catheter. EXTREMITIES: Warm and well perfused. BACK: No CVA tenderness. NEUROLOGICAL: Intact without focal deficits. PSYCHIATRIC: normal affect. MUSCULOSKELETAL: Normally developed with good muscle tone. Medical Decision & Procedures ER Provider Diagnostic Interpretation: X ray results and stated below per my interpretation and radiology interpretation. CHEST ONE VIEW PORTABLE HISTORY: Evaluate Fever/Sepsis COMPARISON: Chest 01/15/2017. FINDINGS: No pneumothorax. The heart remains mildly enlarged. Bilateral interstitial and vascular thickening has progressed consistent with pulmonary edema. Small bilateral pleural effusions and bibasilar densities have also progressed. IMPRESSION: 1. Interval progression of the mild pulmonary edema and small bilateral pleural effusions. 2. Bibasilar densities have also progressed and may represent atelectasis from the pleural effusions. Electronically signed by: Steve Stern M.D. 04/11/2017 12:46 PM Dictated Date/Time: 04/11/2017 12:45 PM Laboratory Results 04/11/17 12:25 Red Blood Count 4.35, Mean Corpuscular Volume 85.1, Mean Corpuscular Hemoglobin 28.7, Mean Corpuscular Hemoglobin Concent 33.8, Mean Platelet Volume 11.2, Neutrophils (%) (Auto) 84.4, Lymphocytes (%) (Auto) 5.1, Monocytes (%) (Auto) 9.3, Eosinophils (%) (Auto) 0.2, Basophils (%) (Auto) 0.1, Neutrophils # (Auto) 21.95, Lymphocytes # (Auto) 1.33, Monocytes # (Auto) 2.41, Eosinophils # (Auto) 0.04, Basophils # (Auto) 0.02 04/11/17 12:25 Test 04/11/17 12:25 04/11/17 12:55 04/11/17 15:06 04/11/17 15:22 White Blood Count 25.98 K/uL (4.8-10.8) Red Blood Count 4.35 M/uL (4.7-6.1) Hemoglobin 12.5 g/dL (14.0-18.0) Hematocrit 37.0 % (42-52) Mean Corpuscular Volume 85.1 fL (80-100) Mean Corpuscular Hemoglobin 28.7 pg (25-34) Mean Corpuscular Hemoglobin Concent 33.8 g/dl (32-36) Platelet Count 117 K/uL (130-400) Mean Platelet Volume 11.2 fL (7.4-10.4) Neutrophils (%) (Auto) 84.4 % Lymphocytes (%) (Auto) 5.1 % Monocytes (%) (Auto) 9.3 % Eosinophils (%) (Auto) 0.2 % Basophils (%) (Auto) 0.1 % Neutrophils # (Auto) 21.95 K/uL (1.4-6.5) Lymphocytes # (Auto) 1.33 K/uL (1.2-3.4) Monocytes # (Auto) 2.41 K/uL (0.11-0.59) Eosinophils # (Auto) 0.04 K/uL (0-0.5) Basophils # (Auto) 0.02 K/uL (0-0.2) RDW Standard Deviation 47.0 fL (36.4-46.3) RDW Coefficient of Variation 15.1 % (11.5-14.5) Immature Granulocyte % (Auto) 0.9 % Immature Granulocyte # (Auto) 0.23 K/uL (0.00-0.02) Toxic Vacuolation 1+ Dohle Bodies 2+ Echinocytes 1+ Activated Partial Thromboplast Time 28.9 SECONDS (21.0-31.0) Partial Thromboplastin Ratio 1.1 Anion Gap 8.0 mmol/L (3-11) Est Creatinine Clear Calc Drug Dose 25.1 ml/min Estimated GFR () 41.1 Estimated GFR (Non- 35.5 BUN/Creatinine Ratio 24.2 (10-20) Calcium Level 8.7 mg/dl (8.5-10.1) Total Bilirubin 1.1 mg/dl (0.2-1) Direct Bilirubin 0.5 mg/dl (0-0.2) Aspartate Amino Transf (AST/SGOT) 35 U/L (15-37) Alanine Aminotransferase (ALT/SGPT) 31 U/L (12-78) Alkaline Phosphatase 98 U/L (45-117) Total Creatine Kinase 33 U/L (39-308) Creatine Kinase MB < 0.5 ng/ml (0.5-3.6) Creatine Kinase MB Ratio (0-3.0) Troponin I 0.111 ng/ml (0-0.045) Total Protein 6.1 gm/dl (6.4-8.2) Albumin 2.6 gm/dl (3.4-5.0) Lipase 106 U/L (73-393) Urine Color DK YELLOW Urine Appearance TURBID (CLEAR) Urine pH 5.0 (4.5-7.5) Urine Specific [place] 1.023 (1.000-1.030) Urine Protein 2+ (NEG) Urine Glucose (UA) NEG (NEG) Urine Ketones NEG (NEG) Urine Occult Blood 3+ (NEG) Urine Nitrite POS (NEG) Urine Bilirubin NEG (NEG) Urine Urobilinogen NEG (NEG) Urine Leukocyte Esterase LARGE (NEG) Urine WBC (Auto) /hpf (0-5) Urine RBC (Auto) /hpf (0-4) Urine Hyaline Casts (Auto) /lpf (0-5) Urine Epithelial Cells (Auto) /lpf (0-5) Urine Bacteria (Auto) (NEG) Urine RBC >30 /hpf (0-4) Urine WBC >30 /hpf (0-5) Urine Epithelial Cells 0-5 /lpf (0-5) Urine Bacteria NEG (NEG) Urine Pathogenic Casts /lpf (0) Urine Mucus (NONE PRSENT) Urine Yeast BUDDING (NONE PRSENT) Urine Yeast (Auto) (NONE PRSENT) Laboratory results as stated above per my review. Medications Administered Medications (Trade) Dose Ordered Sig/Malik Route Start Time Stop Time Status Last Admin Dose Admin Sodium Chloride 1,000 ml @ 999 mls/hr Q1H1M STAT IV 04/11/17 11:57 04/11/17 12:57 DC 04/11/17 12:34 999 MLS/HR Ceftriaxone Sodium (Rocephin Inj) 1 gm NOW STAT IV 04/11/17 11:57 04/11/17 11:59 DC 04/11/17 12:34 1 GM ECG Indication: weakness Rate (beats per minute): 79 Rhythm: normal sinus Findings: T-wave inversion (Lateral), no ectopy Comparison ECG Date: 23-Dec-2016 Change: no significant change ED Course 1145: Previous medical records were reviewed. The patient was evaluated in room A12B. A complete history and physical examination was performed. 1157: Rocephin Inj 1 gm IV, NSS 1000 ml @ 999 mls/hr IV. 1351: On reevaluation, the patient is resting comfortably. I discussed the results and findings with his daughter. She verbalized agreement of the treatment plan. The patient will be evaluated for further management and care. 1353: I discussed the patient's case with Connie Lynch PA-C [facility]. The patient will be evaluated for further treatment and disposition. Medical Decision Differential includes acute coronary syndrome, myocardial infarction, CVA, TIA, anemia, infection, pneumonia, UTI, pyelonephritis, poor nutrition, dehydration, electrolyte disturbance,hypoglycemia.. The patient presents with a chief complaint of generalized weakness and recent fevers for the past several days. He is also had some low blood pressures. The patient was referred here for evaluation. Vital signs are stable. Physical exam reveals generalized weakness. The patient speaks only Nigerien. He is not very talkative but does converse through his daughter. The patient denies any specific complaints. His EKG shows a small sinus rhythm. There are some lateral T-wave changes that are not significant change from baseline. A chest x-ray reveals some progression of mild pulmonary edema. Clinically the patient does not have pulmonary edema. The white blood cell count was 25.98. Troponin is elevated 0.111. The patient was told results. He was given IV Rocephin some IV fluids. I spoke with the hospitalist, who will see the patient for further inpatient evaluation and care. Medication Reconcilliation Current Medication List: was personally reviewed by me Consults Time Called: [id number] Consulting Physician: HILARY Campuzano hospitalist service Returned Call: [phone] Discussed the patient's case. The patient will be evaluated for further treatment and disposition. Impression Primary Impression: Weakness Additional Impressions: UTI (urinary tract infection) Leukocytosis NSTEMI (non-ST elevated myocardial infarction) Scribe Attestation The scribe's documentation has been prepared under my direction and personally reviewed by me in its entirety. I confirm that the note above accurately reflects all work, treatment, procedures, and medical decision making performed by me. Departure Information Dispostion Being Evaluated By Hospitalist Referrals Tamara Toribio D.O. (PCP) Patient Instructions My [facility] Problem Qualifiers
[2017-04-11] MEDS ORDERED: SODIUM CHLORIDE 0.9% 1000ML 1,000 ML IV SCH ×2 (16:15→17:45)
--- NOTE | 2017-04-11 16:22 | History and Physical ---
History & Physical Date & Time of Service: Apr 11, 2017 at 15:30 Chief Complaint: Fever Since Saturday, Hypotension, High Heartrate Primary Care Physician: Tamara Toribio D.O. History of Present Illness Source: patient, family This is a 86yo M with PMH of chronic urinary retention (with indwelling haas catheter), h/o UTIs, diastolic HF and A Fib who presents with a 3 day history of fever, chills and generalized weakness. 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 Per daughter, who is patient's primary caregiver and deputy sheriff/investigator (patient and daughter denied offer for hand assembler for puller over), by late January patient's health had improved and he was able to ambulate at home via walker. Three days ago, patient started to feel weak, fatigued and experience fever/chills. Daughter then checked patient's vitals at home and found him to be consistently hypotensive and tachycardic, with decreased PO intake. Went to see PCP today, who suggested they immediately come to the ER for urosepsis work-up. Per chart review, the PCP had a long discussion with daughter about bringing patient to the hospital verses inquiring about palliative/hospice services. Eventually the family decided to bring patient to ER for treatment but desire to continue hospice discussion in the future if his health continues to decline. Today, patient endorses chills, generalized weakness and fatigue. Has also been having diarrhea for the past few days. Denies confusion, dizziness, CP, dyspnea , SOB, orthopnea, abd pain, nausea/vomiting, urinary symptoms, LE swelling or focal weakness. 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 Social History Smoking Status: Never Smoker Drug Use: none Marital Status: Housing status: lives with family Occupational Status: retired Multi-Drug Resistant Organisms History of MDRO: No Allergies Coded Allergies: No Known Allergies (Verified , 10/16/16) Home Medications Scheduled Aspirin (Aspirin Ec), 81 MG PO DAILY Cephalexin Monohydrate (Keflex), 250 MG PO QID Dutasteride (Avodart), 0.5 MG PO DAILY Furosemide (Lasix), 20 MG PO DAILY Metoprolol Tartrate (Lopressor) (Lopressor), 50 MG PO BID Potassium Chloride (Potassium Chloride Er), 8 MEQ PO DAILY Scheduled PRN Acetaminophen (Tylenol), 500 MG PO Q4H PRN for Pain or Fever Lidocaine (Lidoderm Patch 5%), 1 PATCH TOP DAILY PRN for Pain Nitroglycerin (Nitrostat), 0.4 MG UT UD PRN for Chest Pain Polyethylene Glycol 3350 (Bulk (Polyethylene Glycol 3350), 17 GM PO DAILY PRN for Constipation Senna/Docusate Sod (Senokot S), 2 TABS PO HS PRN for Constipation Review of Systems Ten systems reviewed and negative except as noted in the HPI. Physical Exam Vital Signs Date Time Temp Pulse Resp B/P (MAP) Pulse Ox O2 Delivery O2 Flow Rate FiO2 04/11/17 14:05 78 18 103/53 04/11/17 13:18 37.1 95/49 04/11/17 12:27 78 22 119/71 93 Room Air 04/11/17 12:03 75 04/11/17 11:07 37.1 77 16 98/65 95 Room Air General Appearance: + mild distress (Ill appearing, frail. Fatigued and intermittently sleeping during exam but cooperative.) Head: normocephalic, atraumatic Eyes: normal inspection, PERRL ENT: hearing grossly normal Neck: supple, no adenopathy, no JVD, trachea midline Respiratory/Chest: chest non-tender, no respiratory distress, no accessory muscle use, + decreased breath sounds Cardiovascular: regular rate, rhythm, no murmur, normal peripheral pulses Abdomen/GI: normal bowel sounds, non tender, soft, no organomegaly Genitourinary - Male: + pertinent finding (indwelling catheter) Back: normal inspection, no CVA tenderness Extremities/Musculoskelatal: normal inspection, no calf tenderness, no pedal edema Neurologic/Psych: no motor/sensory deficits, alert, normal mood/affect, oriented x 3 Skin: normal color, warm/dry, no rash Diagnostics Laboratory Results Results Past 24 Hours Test 04/11/17 12:25 04/11/17 12:55 04/11/17 15:06 04/11/17 15:22 Range/Units White Blood Count 25.98 4.8-10.8 K/uL Red Blood Count 4.35 4.7-6.1 M/uL Hemoglobin 12.5 14.0-18.0 g/dL Hematocrit 37.0 42-52 % Mean Corpuscular Volume 85.1 80-100 fL Mean Corpuscular Hemoglobin 28.7 25-34 pg Mean Corpuscular Hemoglobin Concent 33.8 32-36 g/dl Platelet Count 117 130-400 K/uL Mean Platelet Volume 11.2 7.4-10.4 fL Neutrophils (%) (Auto) 84.4 % Lymphocytes (%) (Auto) 5.1 % Monocytes (%) (Auto) 9.3 % Eosinophils (%) (Auto) 0.2 % Basophils (%) (Auto) 0.1 % Neutrophils # (Auto) 21.95 1.4-6.5 K/uL Lymphocytes # (Auto) 1.33 1.2-3.4 K/uL Monocytes # (Auto) 2.41 0.11-0.59 K/uL Eosinophils # (Auto) 0.04 0-0.5 K/uL Basophils # (Auto) 0.02 0-0.2 K/uL RDW Standard Deviation 47.0 36.4-46.3 fL RDW Coefficient of Variation 15.1 11.5-14.5 % Immature Granulocyte % (Auto) 0.9 % Immature Granulocyte # (Auto) 0.23 0.00-0.02 K/uL Toxic Vacuolation 1+ Dohle Bodies 2+ Echinocytes 1+ Prothrombin Time 11.9 9.0-12.0 SECONDS Prothromb Time International Ratio 1.1 0.9-1.1 Activated Partial Thromboplast Time 28.9 21.0-31.0 SECONDS Partial Thromboplastin Ratio 1.1 Sodium Level 138 136-145 mmol/L Potassium Level 4.2 3.5-5.1 mmol/L Chloride Level 108 98-107 mmol/L Carbon Dioxide Level 22 21-32 mmol/L Anion Gap 8.0 3-11 mmol/L Blood Urea Nitrogen 41 7-18 mg/dl Creatinine 1.70 0.60-1.40 mg/dl Est Creatinine Clear Calc Drug Dose 25.1 ml/min Estimated GFR () 41.1 Estimated GFR (Non- 35.5 BUN/Creatinine Ratio 24.2 10-20 Random Glucose 147 70-99 mg/dl Calcium Level 8.7 8.5-10.1 mg/dl Total Bilirubin 1.1 0.2-1 mg/dl Direct Bilirubin 0.5 0-0.2 mg/dl Aspartate Amino Transf (AST/SGOT) 35 15-37 U/L Alanine Aminotransferase (ALT/SGPT) 31 12-78 U/L Alkaline Phosphatase 98 45-117 U/L Total Creatine Kinase 33 39-308 U/L Creatine Kinase MB < 0.5 0.5-3.6 ng/ml Creatine Kinase MB Ratio 0-3.0 Troponin I 0.111 0-0.045 ng/ml Total Protein 6.1 6.4-8.2 gm/dl Albumin 2.6 3.4-5.0 gm/dl Lipase 106 73-393 U/L Urine Color DK YELLOW Urine Appearance TURBID CLEAR Urine pH 5.0 4.5-7.5 Urine Specific [place] 1.023 1.000-1.030 Urine Protein 2+ NEG Urine Glucose (UA) NEG NEG Urine Ketones NEG NEG Urine Occult Blood 3+ NEG Urine Nitrite POS NEG Urine Bilirubin NEG NEG Urine Urobilinogen NEG NEG Urine Leukocyte Esterase LARGE NEG Urine WBC (Auto) 0-5 /hpf Urine RBC (Auto) 0-4 /hpf Urine Hyaline Casts (Auto) 0-5 /lpf Urine Epithelial Cells (Auto) 0-5 /lpf Urine Bacteria (Auto) NEG Urine RBC >30 0-4 /hpf Urine WBC >30 0-5 /hpf Urine Epithelial Cells 0-5 0-5 /lpf Urine Bacteria NEG NEG Urine Pathogenic Casts 0 /lpf Urine Mucus NONE PRSENT Urine Yeast BUDDING NONE PRSENT Urine Yeast (Auto) NONE PRSENT Microbiology Results 04/11/17 Blood Culture, Received Pending 04/11/17 Blood Culture, Received Pending 04/11/17 Urine Culture, Received Pending Diagnostic Radiology CXR: IMPRESSION: 1. Interval progression of the mild pulmonary edema and small bilateral pleural effusions. 2. Bibasilar densities have also progressed and may represent atelectasis from the pleural effusions. EKG Normal sinus rhythm T wave abnormality, consider lateral ischemia Impression Assessment and Plan This is a 86yo M with PMH of chronic urinary retention (with indwelling haas catheter), h/o UTIs, diastolic HF and A Fib who presents with a 3 day history of fever, chills and generalized weakness. Sepsis 2/2 urinary source: -Patient with reported fevers, hypotension at home. Afebrile on admission with BP of 98/65 -Meets SIRs criteria with RR>20, Leukocytosis of 25.98 and urinary source of infection -IVFs, with caution due to diastolic HF -BP already responding to fluid resuscitation -Given rocephin in ER. Renally dosed Vanc and Zosyn -Blood and urine cultures pending -Lactic acid pending -Monitor on tele UTI, complicated: -H/o UTIs, indwelling catheter 2/2 urinary retention, BPH -Takes prophylactic Keflex at home. Currently held. -UA with + nitrites, leuk esterase -Leukocytosis of 25.98 -Vanc, Zosyn (renally dosed) -Urine cx pending -Removed indwelling cath; bladder scan qShift with straight cath JAVAD: -Cr of 1.7 on admission -Baseline Cr of ~1 -Likely prerenal cause from dehydration and renal cause from home Lasix -Held Lasix -IVF -Monitor with BMP in AM Elevated troponin: -Initial trop slightly elevated at 0.11 -No chest pain, so unlikely caused by ACS -EKG with lateral ischemia that is not significantly different than EKG in November -Likely demand ischemia from hypotension, dehydration -Trend cardiac enzymes -Repeat EKG in AM H/o lumbar spine osteomyelitis and psoas abscess: -Completed 2 months of PICC line abx in December-January -Plan to order follow-up CT Abd/pelvis once kidney function improves Diarrhea: -Reports diarrhea over the past few days -Stool culture, C diff gene pending -Empirically treat with PO Vanc Chronic diastolic HF: -CXR with mild pulm edema and small bilat. pleural effusions -Clinically seems compensated; no SOB, lungs are clear, no LE edema -Held Lasix 2/2 JAVAD -Daily weights, low Na diet -Giving IVF with caution -Echo (12/12) with EF: 65-70%, normal LV wall motion Moderate mitral regurg, mild tricuspid regurg Elevated RV systolic pressure at 45-50mmHg A Fib: -EKG shows sinus rhythm -Decreased metoprolol dose to 25mg BID 2/2 hypotension -Stopped Coumadin after last admission -Monitor on tele DVT Ppx: Unfractionated heparin Code status: DNR as per discussion with daughter and per living will PCP: Mc Dispo: Discharge planning ordered. PT/OT evals ordered. Agree with above H and P. Briefly 86M with chronic indwelling Haas cath and recent 6 week abx course for lumbar spinne discitis and ilopsoas abscess presents with ongoing fevers and not feeling well since last 3 days. As per daughter after he was discharged last time he was doing fine at home until last 3days. He is also having severl episodes of diarrhea. Complains some sob. Initial BP was on lower side in Er but currently hemodynamically stable. p/e Ge old and frail. not in distress vs s 1and s2 heard no murmurs Rs cta b/l no added sounds Abd benign ext no edema a/p Sepsis metabolic encephalopathy UTI possible c diff started on iv vanco, Zosyn and po vanco f/u cx monitor in tele JAVAD from above f/u labs Level of Care Telemetry Resuscitation Status DO NOT RESUSCITATE VTE Prophylaxis VTE Risk Assessment Done? Y/N: Yes Risk Level: High Given or contraindicated: Unfractionated heparin SQ
--- NOTE | 2017-04-11 16:33 | Pharmacy Progress Note ---
Pharmacy Abx Initial Consult Date of Service Apr 11, 2017. Pharmacy Dosing Scope Date of Consult: 04/11/17 Consultation requested by: Megan Alba PA-c Pharmacy is consulted to initiate Vancomycin IV dosing therapy, order appropriate labs and adjust drug dose/frequency. Subjective The patient is a 86 year old male admitted on 04/11/17. Objective Height (Feet): 5 Height (Inches): 6.00 Weight (Kilograms): 58.000 Vital Signs (Past 12Hrs) Vital Signs Past 12 Hours Date Time Temp Pulse Resp B/P (MAP) Pulse Ox O2 Delivery O2 Flow Rate FiO2 04/11/17 15:49 73 27 90 04/11/17 15:34 76 15 93 04/11/17 15:31 108/70 04/11/17 15:19 77 28 89 04/11/17 15:04 75 13 94 04/11/17 14:49 76 29 88 04/11/17 14:34 80 24 04/11/17 14:32 95/45 04/11/17 14:19 80 21 95 04/11/17 14:05 78 18 103/53 04/11/17 14:04 80 31 93 04/11/17 14:01 103/53 04/11/17 13:49 79 27 96 04/11/17 13:34 79 28 96 04/11/17 13:31 97/53 04/11/17 13:19 79 25 95/49 96 04/11/17 13:18 37.1 95/49 04/11/17 13:04 79 25 95 04/11/17 13:02 82/49 04/11/17 12:49 78 26 94 04/11/17 12:36 109/66 04/11/17 12:34 79 12 92 04/11/17 12:28 119/71 04/11/17 12:27 78 22 119/71 93 Room Air 04/11/17 12:19 78 26 04/11/17 12:04 76 26 95 04/11/17 12:03 75 04/11/17 12:01 104/65 04/11/17 11:31 95/53 04/11/17 11:07 37.1 77 16 98/65 95 Room Air Lab Results (24Hrs) Laboratory Tests (24 Hours) Test 04/11/17 12:25 04/11/17 15:22 White Blood Count 25.98 K/uL (4.8-10.8) H Red Blood Count 4.35 M/uL (4.7-6.1) L Hemoglobin 12.5 g/dL (14.0-18.0) L Hematocrit 37.0 % (42-52) L Mean Corpuscular Volume 85.1 fL (80-100) Mean Corpuscular Hemoglobin 28.7 pg (25-34) Mean Corpuscular Hemoglobin Concent 33.8 g/dl (32-36) Platelet Count 117 K/uL (130-400) L Mean Platelet Volume 11.2 fL (7.4-10.4) H Neutrophils (%) (Auto) 84.4 % Lymphocytes (%) (Auto) 5.1 % Monocytes (%) (Auto) 9.3 % Eosinophils (%) (Auto) 0.2 % Basophils (%) (Auto) 0.1 % Neutrophils # (Auto) 21.95 K/uL (1.4-6.5) H Lymphocytes # (Auto) 1.33 K/uL (1.2-3.4) Monocytes # (Auto) 2.41 K/uL (0.11-0.59) H Eosinophils # (Auto) 0.04 K/uL (0-0.5) Basophils # (Auto) 0.02 K/uL (0-0.2) Total Creatine Kinase 33 U/L (39-308) L Lactic Acid Level 1.7 mmol/L (0.4-2.0) Micro Results Date/Time Source Procedure Growth Status 04/11/17 12:25 Blood Blood Culture Pending Received 04/11/17 12:18 Blood Blood Culture Pending Received 04/11/17 12:55 Urine,Catheterized Urine Culture Pending Received Assessment & Plan Assessment 86 year old male with UTI with possible Sepsis. Plan Vancomycin for treatment of treatment of complicated UTI. Vancomycin IV * Loading dose: 1250 mg (21.6 mg/kg) x 1 dose ordered for this evening. * A maintenance dose has not been ordered yet since patient has poor renal function- Scr = 1.7, Crcl = 25 * A random level ordered for 04/12 with AM labs. * If renal function improves or remains stable then will order maintenance Vancomycin. Piperacillin/tazobactam * 4.5 g bolus administered over 30 minutes in the ED, then 3.375 g IV extended infusion every 8 hours for CrCl greater than 20 mL/min * Aggressive dosing selected due to BMI 35 or more. * Will monitor renal function and adjust dosing if needed. Pharmacy will continue to follow and will adjust dose/frequency as necessary. Thank you.
[2017-04-11] MEDS ORDERED: SODIUM CHLORIDE 0.9% 250ML 250 ML IV ONE (17:30)
[2017-04-11 17:52] VITALS: BP 139/82; PULSE 78; TEMP 36.3; O2SAT 94; Ht 167.6 cm; Wt 63.9 kg
[2017-04-11] MEDS ORDERED: VANCOMYCIN INJ 1,250 MG in SODIUM CHLORIDE 0.9% 250ML 250 ML IV ONE (18:15)
[2017-04-11 18:43] LABS: INR 1.1 (0.9-1.1)
[2017-04-11 18:59] LABS: CKMB/CK RATIO 3.8 (0-3.0)
[2017-04-11] MEDS: AVODART~ORDER AWAITING ACTION SCH (19:00)
[2017-04-11] MEDS: VANCOMYCIN HCL 125 MG/2.5ML SOLN PO SCH ×2 (19:27→21:26)
[2017-04-11] MEDS: RASPBERRY SYRUP 5 ML UDP PO SCH ×2 (19:27→21:26)
[2017-04-11] MEDS: METOPROLOL TARTRATE 25 MG TAB PO SCH (19:28)
[2017-04-11 19:38] VITALS: BP 143/76; PULSE 93; TEMP 36.8; O2SAT 94
[2017-04-11 20:00] VITALS: O2SAT 93
[2017-04-11] MEDS: HEPARIN SOD 5000 UNIT/0.5 ML CARP SQ SCH (21:38)
[2017-04-11] MEDS: PIPERACILL/TAZOBAC IV 3.375 GM in DEXTROSE 5% 100ML 100 ML IV SCH (21:45)
[2017-04-11 23:32] VITALS: BP 130/68; PULSE 73; TEMP 37.3; O2SAT 95
[2017-04-12 04:45] VITALS: BP 140/80; PULSE 85; TEMP 36.9; O2SAT 92
[2017-04-12] MEDS: PIPERACILL/TAZOBAC IV 3.375 GM in DEXTROSE 5% 100ML 100 ML IV SCH ×3 (06:11→21:03)
[2017-04-12 07:29] LABS: HEMATOCRIT 37.4 % (42-52); MEAN CELL VOLUME 86.2 fL (80-100); MEAN CORPUSCULAR HEMOGLOBIN 29.5 pg (25-34); MEAN CORPUSCULAR HGB CONC 34.2 g/dl (32-36); MEAN PLATELET VOLUME 10.9 fL (7.4-10.4); PLATELET COUNT 141 K/uL (130-400); RED BLOOD COUNT 4.34 M/uL (4.7-6.1); WHITE BLOOD COUNT 14.13 K/uL (4.8-10.8)
[2017-04-12 07:33] LABS: PROTHROMBIN TIME (PATIENT) 11.1 SECONDS (9.0-12.0)
[2017-04-12 07:40] LABS: BUN/CREATININE RATIO 20.9 (10-20); CALCIUM 9.3 mg/dl (8.5-10.1); CREATININE 1.7 mg/dl (0.60-1.40); POTASSIUM 4.5 mmol/L (3.5-5.1)
[2017-04-12] MEDS: AVODART~ORDER AWAITING ACTION SCH ×4 (08:00→23:46)
[2017-04-12 08:15] VITALS: BP 106/66; PULSE 83; TEMP 37; O2SAT 92
[2017-04-12] MEDS: VANCOMYCIN HCL 250 MG/5 ML SOLN PO SCH ×4 (09:00→21:01)
[2017-04-12] MEDS: HEPARIN SOD 5000 UNIT/0.5 ML CARP SQ SCH ×2 (09:00→21:07)
[2017-04-12] MEDS: METOPROLOL TARTRATE 25 MG TAB PO SCH ×2 (09:00→21:03)
[2017-04-12] MEDS: POTASSIUM CHLORIDE 10 MEQ TABCR PO SCH (09:00)
[2017-04-12] MEDS: ASPIRIN 81 MG ECTAB PO SCH (09:00)
[2017-04-12] MEDS: RASPBERRY SYRUP 5 ML UDP PO SCH ×4 (09:00→21:01)
--- NOTE | 2017-04-12 09:28 | Clinical Documentation Query ---
CLINICAL DOCUMENTATION QUERY 86-y/o male with chronic indwelling haas catheter presents with sepsis 2/2 uti. In your clinical opinion is this patient being managed for: ( x ) Haas catheter associated UTI causing sepsis ( ) Not Agree ( ) Other explanation of clinical findings (Please Explain) ( ) Unable to determine (Please Define) ( ) Need to Discuss The medical record reflects the following clinical findings, treatment, and risk factors. Clinical Indicators: Sepsis from urinary per H&P. WBC's 25.98, +Troponin's, UC +pseudomonas, Treatment: IVF bolus, IV Ceftriaxone, IV Vancomycin, IV Zosyn, Risk Factors: Age, indwelling Haas catheter, hx of UTI's Please clarify and document your clinical opinion in the progress notes and discharge summary. Terms such as "probable", "suspected", "likely", "questionable", "possible", or "still to be ruled out" are acceptable. IF IN AGREEMENT, YOU MUST DOCUMENT ABOVE DIAGNOSTIC STATEMENT IN DAILY PROGRESS NOTES AND DISCHARGE SUMMARY. This document is not part of the patient's record. Thank You, Bruce Batista, ERIC [phone]
[2017-04-12 11:52] VITALS: BP 145/85; PULSE 79; TEMP 36.7; O2SAT 93
[2017-04-12 16:14] VITALS: BP 151/75; PULSE 87; TEMP 36.6; O2SAT 95
[2017-04-12 17:30] VITALS: BP 151/75; PULSE 87; TEMP 36.6; O2SAT 95
[2017-04-12 17:48] VITALS: BP 136/81; PULSE 70; TEMP 36.5; O2SAT 93
--- NOTE | 2017-04-12 19:03 | Progress Note ---
Internal Med Progress Note Date of Service: Apr 12, 2017. Provider Documentation: SUBJECTIVE: seems comfortable afebrile eating ok hemodynamics stable cannot speak Kyr[place]z OBJECTIVE: Vital Signs-as noted below Exam: General-alert and awake. Not in distress ENT-normal hearing Neck-no neck masses Lungs-cta b/l no wheezing no crackles present Heart-s1 and s2 heard regular rhythm, no murmurs Abdomen-soft bowel sounds present non tender no distension Extremities no edema present no erythema Neuro-alert and oriented moves extremities Lab data as noted below. ASSESSMENT & PLAN: This is a 86yo M with PMH of chronic urinary retention (with indwelling haas catheter), h/o UTIs, diastolic HF and A Fib who presents with a 3 day history of fever, chills and generalized weakness. Sepsis 2/2 from uti from chronic indwelling haas cath' from c diff intially started on iv vanco and Zosyn and po vanco urine cx growing pseudomonas c diff positive stopped iv vanco hemodynamics stable continue same for now UTI, complicated: secondary to indwelling catheter 2/2 urinary retention, BPH abx as above replace the Haas and haas care. JAVAD: Cr of 1.7 on admission Baseline Cr of ~1 lasix on hold will f/u labs Elevated troponin: demand ischemia trending down H/o lumbar spine osteomyelitis and psoas abscess: Completed 2 months of PICC line abx in December-January Plan to order follow-up CT Abd/pelvis once kidney function improves Diarrhea: c diff positive on po vancomycin Chronic diastolic HF: Lasix on hold monitor for volume overload A Fib: EKG shows sinus rhythm Decreased metoprolol dose to 25mg BID 2/2 hypotension Stopped Coumadin after last admission will monitor in tele DVT px hep sub q code status DNR Disposition transfer to medical floor Vital Signs: Date Time Temp Pulse Resp B/P (MAP) Pulse Ox O2 Delivery O2 Flow Rate FiO2 04/12/17 17:48 36.5 70 16 136/81 (99) 93 Room Air 04/12/17 17:30 36.6 87 18 95 04/12/17 16:14 36.6 87 18 151/75 (100) 95 Room Air 04/12/17 16:00 Room Air 04/12/17 12:00 Room Air 04/12/17 11:52 36.7 79 18 145/85 (105) 93 Room Air 04/12/17 08:15 37.0 83 17 106/66 (79) 92 Room Air 04/12/17 08:00 Room Air 04/12/17 04:45 Room Air 04/12/17 04:45 36.9 85 20 140/80 (100) 92 Room Air 04/12/17 00:00 Room Air 04/11/17 23:32 37.3 73 18 130/68 (88) 95 Room Air 04/11/17 20:00 93 Room Air 04/11/17 19:38 36.8 93 20 143/76 (98) 94 Room Air Lab Results: Results Past 24 Hours Test 04/12/17 06:22 Range/Units White Blood Count 14.13 4.8-10.8 K/uL Red Blood Count 4.34 4.7-6.1 M/uL Hemoglobin 12.8 14.0-18.0 g/dL Hematocrit 37.4 42-52 % Mean Corpuscular Volume 86.2 80-100 fL Mean Corpuscular Hemoglobin 29.5 25-34 pg Mean Corpuscular Hemoglobin Concent 34.2 32-36 g/dl RDW Standard Deviation 47.7 36.4-46.3 fL RDW Coefficient of Variation 15.4 11.5-14.5 % Platelet Count 141 130-400 K/uL Mean Platelet Volume 10.9 7.4-10.4 fL Prothrombin Time 11.1 9.0-12.0 SECONDS Prothromb Time International Ratio 1.0 0.9-1.1 Sodium Level 140 136-145 mmol/L Potassium Level 4.5 3.5-5.1 mmol/L Chloride Level 108 98-107 mmol/L Carbon Dioxide Level 25 21-32 mmol/L Anion Gap 7.0 3-11 mmol/L Blood Urea Nitrogen 36 7-18 mg/dl Creatinine 1.70 0.60-1.40 mg/dl Est Creatinine Clear Calc Drug Dose 27.6 ml/min Estimated GFR () 41.1 Estimated GFR (Non- 35.5 BUN/Creatinine Ratio 20.9 10-20 Random Glucose 91 70-99 mg/dl Calcium Level 9.3 8.5-10.1 mg/dl Random Vancomycin Level 12.6 mcg/ml Microbiology Results 04/11/17 C.difficile Toxin B Gene (PCR) - Final, Complete Positive for C. difficile toxin B gene 04/11/17 Shiga Toxin Test, Received Pending 04/11/17 Stool Culture, Received Pending
[2017-04-13] VITALS: O2SAT 93
[2017-04-13 00:23] VITALS: BP 148/65; PULSE 70; TEMP 36.7; O2SAT 91
[2017-04-13] MEDS: PIPERACILL/TAZOBAC IV 3.375 GM in DEXTROSE 5% 100ML 100 ML IV SCH (06:03)
[2017-04-13 07:29] VITALS: BP 158/74; PULSE 73; TEMP 36.5; O2SAT 91
[2017-04-13 07:34] LABS: CREATININE 1.5 mg/dl (0.60-1.40)
[2017-04-13] MEDS: AVODART~ORDER AWAITING ACTION SCH ×3 (07:49→23:27)
[2017-04-13] MEDS: RASPBERRY SYRUP 5 ML UDP PO SCH ×4 (07:50→20:45)
[2017-04-13] MEDS: POTASSIUM CHLORIDE 10 MEQ TABCR PO SCH (07:50)
[2017-04-13] MEDS: METOPROLOL TARTRATE 25 MG TAB PO SCH ×2 (07:51→20:50)
[2017-04-13] MEDS: VANCOMYCIN HCL 250 MG/5 ML SOLN PO SCH ×4 (07:51→20:45)
[2017-04-13] MEDS: ASPIRIN 81 MG ECTAB PO SCH (07:51)
[2017-04-13] MEDS: HEPARIN SOD 5000 UNIT/0.5 ML CARP SQ SCH ×2 (07:53→20:48)
[2017-04-13] MEDS: LACTOBACILLUS ACIDOPHILUS (FLORANEX) TAB PO SCH ×3 (08:00→17:11)
[2017-04-13] MEDS ORDERED: SODIUM CHLORIDE 0.9% 1000ML 1,000 ML IV SCH (08:00)
[2017-04-13] MEDS ORDERED: CIPROFLOXACIN CONSULT ACTIVE PRN ×2 (09:45)
[2017-04-13] MEDS: CIPROFLOXACIN / D5W 200 MG in PREMIXED IN D5W 100 ML IV SCH ×2 (13:40→23:27)
[2017-04-13 14:56] VITALS: BP 125/75; PULSE 73; TEMP 36.9; O2SAT 99
--- NOTE | 2017-04-13 16:43 | Progress Note ---
Internal Med Progress Note Date of Service: Apr 13, 2017. Provider Documentation: SUBJECTIVE: cannot speak Polish nods head he is doing fine mild abdominal discomfort afebrile OBJECTIVE: Vital Signs-as noted below Exam: General-alert and awake. Not in distress ENT-normal hearing Neck-no neck masses Lungs-cta b/l no wheezing no crackles present Heart-s1 and s2 heard regular rhythm, no murmurs Abdomen-soft bowel sounds present non tender no distension Extremities no edema present no erythema Neuro-alert and oriented moves extremities Lab data as noted below. ASSESSMENT & PLAN: This is a 86yo M with PMH of chronic urinary retention (with indwelling haas catheter), h/o UTIs, diastolic HF and A Fib who presents with a 3 day history of fever, chills and generalized weakness. Sepsis 2/2 from uti from chronic indwelling haas cath' from c diff intially started on iv vanco and Zosyn and po vanco urine cx growing pseudomonas sensitive to cipro c diff positive currently on cipro and po vancomycin hemodynamics stable continue same for now UTI, complicated: secondary to indwelling catheter 2/2 urinary retention, BPH abx as above replace the Haas and haas care. JAVAD: Cr of 1.7 on admission Baseline Cr of ~1 Lasix on hold will f/u labs Elevated troponin: demand ischemia trending down H/o lumbar spine osteomyelitis and psoas abscess: Completed 2 months of PICC line abx in December-January Plan to order follow-up CT Abd/pelvis once kidney function improves seems stable Diarrhea: c diff positive on po vancomycin Chronic diastolic HF: Lasix on hold monitor for volume overload A Fib: EKG shows sinus rhythm Decreased metoprolol dose to 25mg BID 2/2 hypotension Stopped Coumadin after last admission will monitor in tele DVT px hep sub q code status DNR Disposition to be determined pt/ot social service for d/c planning Vital Signs: Date Time Temp Pulse Resp B/P (MAP) Pulse Ox O2 Delivery O2 Flow Rate FiO2 04/13/17 14:56 36.9 73 18 125/75 (92) 99 Nasal Cannula 2.0 04/13/17 08:00 Room Air 04/13/17 07:29 36.5 73 18 158/74 (102) 91 Room Air 04/13/17 00:23 36.7 70 20 148/65 (92) 91 Room Air 04/13/17 00:00 93 Room Air 04/12/17 17:48 36.5 70 16 136/81 (99) 93 Room Air 04/12/17 17:30 36.6 87 18 95 Lab Results: Results Past 24 Hours Test 04/13/17 06:56 Range/Units Creatinine 1.50 0.60-1.40 mg/dl Est Creatinine Clear Calc Drug Dose 30.8 ml/min Estimated GFR () 47.8 Estimated GFR (Non- 41.3
[2017-04-13 20:56] VITALS: BP 154/81; PULSE 77
[2017-04-14] VITALS: BP 145/73; PULSE 63; TEMP 36.5; O2SAT 98
[2017-04-14 07:48] LABS: BASO % 0.3 %; BASO ABS # 0.03 K/uL (0-0.2); COMPLETE YES; EOS % 3.4 %; HEMATOCRIT 34.2 % (42-52); IG% 2.8 %; LYMPH ABS # 2.15 K/uL (1.2-3.4); MEAN CELL VOLUME 84.2 fL (80-100); MEAN CORPUSCULAR HEMOGLOBIN 29.1 pg (25-34); MEAN CORPUSCULAR HGB CONC 34.5 g/dl (32-36); MEAN PLATELET VOLUME 10.4 fL (7.4-10.4); MONO % 11.1 %; NEUT % 58.4 %; PLATELET COUNT 133 K/uL (130-400); RED BLOOD COUNT 4.06 M/uL (4.7-6.1); WHITE BLOOD COUNT 8.95 K/uL (4.8-10.8)
[2017-04-14] MEDS: AVODART~ORDER AWAITING ACTION SCH ×3 (08:00→23:59)
[2017-04-14 08:06] VITALS: BP 165/86; PULSE 65; TEMP 36.6; O2SAT 94
[2017-04-14 08:19] LABS: BUN/CREATININE RATIO 26.1 (10-20); CALCIUM 8.5 mg/dl (8.5-10.1); CREATININE 1.1 mg/dl (0.60-1.40); MAGNESIUM 2.1 mg/dl (1.8-2.4)
[2017-04-14] MEDS: LACTOBACILLUS ACIDOPHILUS (FLORANEX) TAB PO SCH ×3 (08:44→17:18)
[2017-04-14] MEDS: RASPBERRY SYRUP 5 ML UDP PO SCH ×4 (08:45→20:46)
[2017-04-14] MEDS: POTASSIUM CHLORIDE 10 MEQ TABCR PO SCH (08:45)
[2017-04-14] MEDS: VANCOMYCIN HCL 250 MG/5 ML SOLN PO SCH ×4 (08:45→20:46)
[2017-04-14] MEDS: ASPIRIN 81 MG ECTAB PO SCH (08:45)
[2017-04-14] MEDS: METOPROLOL TARTRATE 25 MG TAB PO SCH ×2 (08:45→20:58)
[2017-04-14] MEDS: HEPARIN SOD 5000 UNIT/0.5 ML CARP SQ SCH ×2 (08:53→20:57)
[2017-04-14] MEDS: CIPROFLOXACIN / D5W 200 MG in PREMIXED IN D5W 100 ML IV SCH (08:55)
[2017-04-14] MEDS ORDERED: OPTIRAY 320 IV PRN (12:45)
--- NOTE | 2017-04-14 13:30 | DIAGNOSTIC IMAGING REPORT ---
ABD/PELVIS IV CONTRAST ONLY CLINICAL HISTORY: 86 years-old Male presenting with hx of ileopsoas abscess. sepsis. TECHNIQUE: Multidetector CT of the abdomen and pelvis was performed after the administration of intravenous contrast. IV contrast: 94 mL of Optiray 320. A dose lowering technique was used consistent with the principles of ALARA (as low as reasonably achievable). COMPARISON: 12/20/2016. CT DOSE (mGy.cm): The estimated cumulative dose is 268.52 mGy.cm. FINDINGS: Cracker Dough Mixer topogram: Unremarkable. Lung bases: Increased size of the now moderate bilateral pleural effusions with associated passive atelectasis. Dependent groundglass opacity also noted. Normal heart size. Mitral annular, aortic valve, and coronary artery calcification. Possible thrombus at the left ventricular apex, which may also demonstrate aneurysmal dilatation (series 2 image 13). Thrombus is new from prior, although the aneurysmal dilatation is not. Liver: Liver density consistent with hepatic steatosis. Mild macronodular appearance of the liver expansion of fat in the bladder fossa. Relative hypertrophy of the left hepatic lobe and atrophy of the right hepatic lobe. These findings could suggest cirrhosis. Well-defined hypodensity in the gallbladder fossa measuring approximately 2 cm unchanged from prior, likely hepatic cyst. Additional hypodensity noted more superiorly in the right hepatic lobe. No focal lesion allowing for this single phase examination. Portal veins patent. Hepatic veins not yet opacified. Biliary: No intrahepatic or extrahepatic biliary ductal dilatation. Decompressed. Pancreas: Mild parenchymal atrophy. Spleen: Normal. Adrenal glands: Normal. Kidneys and ureters: Well-defined hypodensity in the lateral left kidney compatible with simple cyst. No hydronephrosis. Ureters grossly normal. Bladder: Circumferential bladder wall thickening. The bladder is incompletely decompressed with a [place] catheter. Related intraluminal gas. Pelvic organs: Calcification in the prostate likely relates to benign prostatic hyperplasia. Bowel: Apparent rectal wall thickening, new from prior. Minimal infiltration of the presacral space. Mild stool burden throughout normal caliber colon. No bowel obstruction. Peritoneal cavity: No free fluid or intraperitoneal gas. Fascial thickening in the retroperitoneum on the left noted. No discrete retroperitoneal or intramuscular abscess is apparent. Vasculature: Atherosclerosis of the normal caliber abdominal aorta. IVC patent. Lymph nodes: No enlarged lymph nodes in the abdomen or pelvis. Abdominal wall: Normal. Musculoskeletal: Degenerative changes of the spine noted. Previous seen noted destructive osseous changes at L2-3 as well as at the superior endplate of L2-1 greater degree on the left aspect. Vacuum disc phenomenon noted at L2-3 and L3-4. No gas within the L1-2 disc space. Minimal inflammatory changes in the paraspinal soft tissues at the L1-2 and L2-3 levels. There is overall less fluid within the L2-3 disc space, and vacuum disc phenomenon at this level is new from prior. IMPRESSION: 1. Previous seen noted destructive changes of the L2-3 and superior endplate of L2 remain evident. However, previously noted fluid in the L2-3 disc space is no longer present, and vacuum disc phenomenon is instead apparent at this level. This suggests against active infection at L2-3. Absence of destructive of endplate changes at the inferior endplate of L1 with suggest against osteomyelitis discitis of L1-2. 2. No evidence of recurrence of the iliopsoas abscess. 3. 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 4. Increasing bilateral pleural effusions, now moderate in size, with associated atelectasis. Electronically signed by: Donald Varela M.D. 04/14/2017 1:29 PM Dictated Date/Time: 04/14/2017 1:13 PM
--- NOTE | 2017-04-14 14:37 | Progress Note ---
Internal Med Progress Note Date of Service: Apr 14, 2017. Provider Documentation: SUBJECTIVE: cannot speak Slovak says he is doing god eating ok happy when said he can go home tomorrow OBJECTIVE: Vital Signs-as noted below Exam: General-alert and awake. Not in distress ENT-normal hearing Neck-no neck masses Lungs-cta b/l no wheezing no crackles present Heart-s1 and s2 heard regular rhythm, no murmurs Abdomen-soft bowel sounds present non tender no distension Extremities no edema present no erythema Neuro-alert and oriented moves extremities Lab data as noted below. ASSESSMENT & PLAN: This is a 86yo M with PMH of chronic urinary retention (with indwelling haas catheter), h/o UTIs, diastolic HF and A Fib who presents with a 3 day history of fever, chills and generalized weakness. Sepsis 2/2 from uti from chronic indwelling haas cath' from c diff initially started on iv vanco and Zosyn and po vanco urine cx growing pseudomonas sensitive to cipro c diff positive currently on cipro and po vancomycin hemodynamics stable continue same for now will complete 10 days of cipro and 21 days of po vanco UTI, complicated: secondary to indwelling catheter 2/2 urinary retention, BPH abx as above replace the Haas and haas care. JAVAD: Cr of 1.7 on admission Baseline Cr of ~1 Lasix was held will f/u labs Elevated troponin: demand ischemia trending down H/o lumbar spine osteomyelitis and psoas abscess: Completed 2 months of PICC line abx in December-January Plan to order follow-up CT Abd/pelvis today seems stable Diarrhea: c diff positive on po vancomycin Chronic diastolic HF: Lasix on hold which will be restarted in am monitor for volume overload A Fib: EKG shows sinus rhythm Decreased metoprolol dose to 25mg BID 2/2 hypotension Stopped Coumadin after last admission will monitor in tele DVT px hep sub q code status DNR Disposition possible d/c in am if stable pt/ot social service for d/c planning Vital Signs: Date Time Temp Pulse Resp B/P (MAP) Pulse Ox O2 Delivery O2 Flow Rate FiO2 04/14/17 08:06 36.6 65 16 165/86 (112) 94 Nasal Cannula 2.0 04/14/17 08:00 Nasal Cannula 2.0 04/14/17 00:45 Nasal Cannula 2.0 04/14/17 00:00 36.5 63 20 145/73 (97) 98 Room Air 04/13/17 20:56 77 154/81 (105) 04/13/17 16:00 Nasal Cannula 2.0 04/13/17 14:56 36.9 73 18 125/75 (92) 99 Nasal Cannula 2.0 Lab Results: Results Past 24 Hours Test 04/14/17 07:22 Range/Units White Blood Count 8.95 4.8-10.8 K/uL Red Blood Count 4.06 4.7-6.1 M/uL Hemoglobin 11.8 14.0-18.0 g/dL Hematocrit 34.2 42-52 % Mean Corpuscular Volume 84.2 80-100 fL Mean Corpuscular Hemoglobin 29.1 25-34 pg Mean Corpuscular Hemoglobin Concent 34.5 32-36 g/dl Platelet Count 133 130-400 K/uL Mean Platelet Volume 10.4 7.4-10.4 fL Neutrophils (%) (Auto) 58.4 % Lymphocytes (%) (Auto) 24.0 % Monocytes (%) (Auto) 11.1 % Eosinophils (%) (Auto) 3.4 % Basophils (%) (Auto) 0.3 % Neutrophils # (Auto) 5.23 1.4-6.5 K/uL Lymphocytes # (Auto) 2.15 1.2-3.4 K/uL Monocytes # (Auto) 0.99 0.11-0.59 K/uL Eosinophils # (Auto) 0.30 0-0.5 K/uL Basophils # (Auto) 0.03 0-0.2 K/uL RDW Standard Deviation 46.8 36.4-46.3 fL RDW Coefficient of Variation 15.3 11.5-14.5 % Immature Granulocyte % (Auto) 2.8 % Immature Granulocyte # (Auto) 0.25 0.00-0.02 K/uL Sodium Level 141 136-145 mmol/L Potassium Level 4.0 3.5-5.1 mmol/L Chloride Level 111 98-107 mmol/L Carbon Dioxide Level 22 21-32 mmol/L Anion Gap 8.0 3-11 mmol/L Blood Urea Nitrogen 29 7-18 mg/dl Creatinine 1.10 0.60-1.40 mg/dl Est Creatinine Clear Calc Drug Dose 42.2 ml/min Estimated GFR () 69.6 Estimated GFR (Non- 60.0 BUN/Creatinine Ratio 26.1 10-20 Random Glucose 107 70-99 mg/dl Calcium Level 8.5 8.5-10.1 mg/dl Magnesium Level 2.1 1.8-2.4 mg/dl
[2017-04-14 15:24] VITALS: BP 147/79; PULSE 61; TEMP 36.5; O2SAT 98
--- NOTE | 2017-04-14 17:41 | DIAGNOSTIC IMAGING REPORT ---
EFFUSION-CHEST/MEDIASTINUM CLINICAL HISTORY: 86 years-old Male presenting with b/l pleural effusions. TECHNIQUE: Real-time grayscale ultrasound imaging of the thorax was performed. COMPARISON: 12/31/2016. FINDINGS: Bilateral effusions noted. The greatest pocket on the right measures 3 cm from the parietal to visceral pleura. The greatest pocket on the left is somewhat smaller. Effusions do not appear complex. Estimated volume of the right effusion is 360 mL. Estimated volume of the left effusion is 77 mL. IMPRESSION: 1. Simple bilateral pleural effusions, moderate right and small left. Electronically signed by: Donald Varela M.D. 04/14/2017 5:39 PM Dictated Date/Time: 04/14/2017 5:37 PM
[2017-04-14] MEDS: CIPROFLOXACIN 250 MG TAB PO SCH (20:40)
[2017-04-14 20:59] VITALS: BP 167/79; PULSE 61
[2017-04-14] MEDS ORDERED: CIPROFLOXACIN 500 MG TAB PO SCH (21:00)
[2017-04-15] VITALS: BP 149/56; PULSE 62; TEMP 36.6; O2SAT 98
[2017-04-15 07:30] VITALS: BP 150/74; PULSE 56; TEMP 36.2; O2SAT 93
[2017-04-15 07:30] LABS: BASO % 0.2 %; BASO ABS # 0.02 K/uL (0-0.2); COMPLETE YES; EOS % 3.5 %; HEMATOCRIT 36.9 % (42-52); IG% 2.9 %; LYMPH % 26.9 %; LYMPH ABS # 2.36 K/uL (1.2-3.4); MEAN CELL VOLUME 85.4 fL (80-100); MEAN CORPUSCULAR HEMOGLOBIN 28.5 pg (25-34); MEAN CORPUSCULAR HGB CONC 33.3 g/dl (32-36); MEAN PLATELET VOLUME 10.4 fL (7.4-10.4); MONO % 8.6 %; NEUT % 57.9 %; PLATELET COUNT 160 K/uL (130-400); RED BLOOD COUNT 4.32 M/uL (4.7-6.1); WHITE BLOOD COUNT 8.77 K/uL (4.8-10.8)
[2017-04-15 07:54] LABS: BUN/CREATININE RATIO 23.2 (10-20); CALCIUM 8.8 mg/dl (8.5-10.1); CREATININE 1.1 mg/dl (0.60-1.40); MAGNESIUM 2.1 mg/dl (1.8-2.4); POTASSIUM 4.2 mmol/L (3.5-5.1)
[2017-04-15] MEDS: AVODART~ORDER AWAITING ACTION SCH (08:00)
[2017-04-15] MEDS: CIPROFLOXACIN 250 MG TAB PO SCH (08:33)
[2017-04-15] MEDS: ASPIRIN 81 MG ECTAB PO SCH (08:33)
[2017-04-15] MEDS: LACTOBACILLUS ACIDOPHILUS (FLORANEX) TAB PO SCH ×2 (08:33→12:35)
[2017-04-15] MEDS: POTASSIUM CHLORIDE 10 MEQ TABCR PO SCH (08:34)
[2017-04-15] MEDS: VANCOMYCIN HCL 250 MG/5 ML SOLN PO SCH ×2 (08:34→12:35)
[2017-04-15] MEDS: METOPROLOL TARTRATE 25 MG TAB PO SCH (08:34)
[2017-04-15] MEDS: RASPBERRY SYRUP 5 ML UDP PO SCH ×2 (08:34→12:35)
[2017-04-15 08:40] VITALS: PULSE 72
[2017-04-15] MEDS: HEPARIN SOD 5000 UNIT/0.5 ML CARP SQ SCH (08:40)
[2017-04-15] MEDS ORDERED: FUROSEMIDE 20 MG TAB PO SCH (09:00)
[2017-04-15] MEDS ORDERED: PERFLUTREN LIPID MICROSPHERE (DEFINITY) IV ONE (09:03)
[2017-04-15 09:54] VITALS: BP 150/82; PULSE 68; O2SAT 95
--- NOTE | 2017-04-15 11:02 | Progress Note ---
Internal Med Progress Note Date of Service: Apr 15, 2017. Provider Documentation: SUBJECTIVE: cannot speak Slovak daughter in room who can translate feeling ok no abdominal pain no fevers eating ok ok to go home OBJECTIVE: Vital Signs-as noted below Exam: General-alert and awake. Not in distress ENT-normal hearing Neck-no neck masses Lungs-cta b/l no wheezing no crackles present Heart-s1 and s2 heard regular rhythm, no murmurs Abdomen-soft bowel sounds present non tender no distension Extremities no edema present no erythema Neuro-alert and oriented moves extremities Lab data as noted below. ASSESSMENT & PLAN: This is a 86yo M with PMH of chronic urinary retention (with indwelling haas catheter), h/o UTIs, diastolic HF and A Fib who presents with a 3 day history of fever, chills and generalized weakness. Sepsis 2/2 from uti from chronic indwelling haas cath' from c diff initially started on iv vanco and Zosyn and po vanco urine cx growing pseudomonas sensitive to cipro c diff positive currently on cipro and po vancomycin hemodynamics stable continue same for now will complete 10 days of cipro and 21 days of po vanco stable UTI, complicated: secondary to indwelling catheter 2/2 urinary retention, BPH abx as above replace the Haas and haas care. JAVAD: Cr of 1.7 on admission Baseline Cr of ~1 Lasix restarted stable will f/u labs Elevated troponin: demand ischemia trending down H/o lumbar spine osteomyelitis and psoas abscess: Completed 2 months of PICC line abx in December-January r follow-up CT Abd/pelvis 04/14/17 no active infection seems stable Diarrhea: c diff positive on po vancomycin Chronic diastolic HF: Lasix on hold which will be restarted today monitor for volume overload A Fib: EKG shows sinus rhythm Decreased metoprolol dose to 25mg BID 2/2 hypotension Stopped Coumadin after last admission will monitor in tele DVT px hep sub q code status DNR Disposition possible d/c today pt/ot social service for d/c planning Vital Signs: Date Time Temp Pulse Resp B/P (MAP) Pulse Ox O2 Delivery O2 Flow Rate FiO2 04/15/17 08:40 72 04/15/17 08:00 Nasal Cannula 2.0 04/15/17 07:30 36.2 56 16 150/74 (99) 93 Room Air 04/15/17 01:00 Nasal Cannula 2.0 04/15/17 00:00 36.6 62 18 149/56 (87) 98 2.0 04/14/17 20:59 61 167/79 (108) 04/14/17 16:00 Nasal Cannula 2.0 04/14/17 15:24 36.5 61 18 147/79 (101) 98 Nasal Cannula 2.0 Lab Results: Results Past 24 Hours Test 04/15/17 06:47 Range/Units White Blood Count 8.77 4.8-10.8 K/uL Red Blood Count 4.32 4.7-6.1 M/uL Hemoglobin 12.3 14.0-18.0 g/dL Hematocrit 36.9 42-52 % Mean Corpuscular Volume 85.4 80-100 fL Mean Corpuscular Hemoglobin 28.5 25-34 pg Mean Corpuscular Hemoglobin Concent 33.3 32-36 g/dl Platelet Count 160 130-400 K/uL Mean Platelet Volume 10.4 7.4-10.4 fL Neutrophils (%) (Auto) 57.9 % Lymphocytes (%) (Auto) 26.9 % Monocytes (%) (Auto) 8.6 % Eosinophils (%) (Auto) 3.5 % Basophils (%) (Auto) 0.2 % Neutrophils # (Auto) 5.08 1.4-6.5 K/uL Lymphocytes # (Auto) 2.36 1.2-3.4 K/uL Monocytes # (Auto) 0.75 0.11-0.59 K/uL Eosinophils # (Auto) 0.31 0-0.5 K/uL Basophils # (Auto) 0.02 0-0.2 K/uL RDW Standard Deviation 46.9 36.4-46.3 fL RDW Coefficient of Variation 15.5 11.5-14.5 % Immature Granulocyte % (Auto) 2.9 % Immature Granulocyte # (Auto) 0.25 0.00-0.02 K/uL Sodium Level 142 136-145 mmol/L Potassium Level 4.2 3.5-5.1 mmol/L Chloride Level 109 98-107 mmol/L Carbon Dioxide Level 25 21-32 mmol/L Anion Gap 8.0 3-11 mmol/L Blood Urea Nitrogen 26 7-18 mg/dl Creatinine 1.10 0.60-1.40 mg/dl Est Creatinine Clear Calc Drug Dose 42.7 ml/min Estimated GFR () 69.6 Estimated GFR (Non- 60.0 BUN/Creatinine Ratio 23.2 10-20 Random Glucose 103 70-99 mg/dl Calcium Level 8.8 8.5-10.1 mg/dl Magnesium Level 2.1 1.8-2.4 mg/dl
[2017-04-15] MEDS ORDERED: VANC5CAP PO (12:53)
[2017-04-15] MEDS ORDERED: LCTX PO (12:53)
[2017-04-15] MEDS ORDERED: CIPR-255 PO (12:53)
--- NOTE | 2017-04-15 12:55 | Discharge Instructions ---
Discharge Instructions Date of Service Apr 15, 2017. Admission Reason for Admission: Generalized Weakness, Uti Discharge Discharge Diagnosis / Problem: SEPSIS, UTI,C. DIFF Discharge Goals Goal(s): Decrease discomfort, Improve function Activity Recommendations Activity Limitations: resume your previous activity . Instructions / Follow-Up Instructions / Follow-Up FOLLOWUP WITH FAMILY DOCTOR ON Mar AT 11:05AM FOLLOWUP WITH INFECTIOUS DISEASE IN 1-2 WEEKS Current Hospital Diet Patient's current hospital diet: Low Sodium Diet (2gm Na), AHA Diet (Heart Healthy) Discharge Diet Recommended Diet: AHA Diet (Heart Healthy) Pending Studies Studies pending at discharge: no Medical Emergencies . Who to Call and When: Medical Emergencies: If at any time you feel your situation is an emergency, please call 911 immediately. . Non-Emergent Contact Non-Emergency issues call your: Primary Care Provider . . "Provider Documentation" section prepared by Drgaan Cabral. . VTE Core Measure Inpt VTE Proph given/why not?: Unfractionated heparin SQ
[2017-04-15 13:10] VITALS: BP 150/74; PULSE 72; TEMP 36.2; O2SAT 93
--- NOTE | 2017-04-15 15:15 | Discharge Summary ---
Discharge Summary Date of Service Apr 15, 2017. Discharge Summary Admission Date: Apr 11, 2017 at 14:44 Discharge Date: Apr 15, 2017 Discharge Disposition: Home with services Principal Diagnosis: SEPSIS UTI C DIFF ARF Secondary Diagnoses/Problems: (1) BPH (benign prostatic hyperplasia) Status: Chronic (2) Chronic back pain Status: Chronic (3) Diastolic CHF Status: Chronic (4) History of osteomyelitis Permanent Comment: H/o lumbar spine osteomyelitis with R psoas abscess Status: Resolved (5) PAF (paroxysmal atrial fibrillation) Status: Chronic (6) Urinary retention Status: Chronic Procedures: CXR: 1. Interval progression of the mild pulmonary edema and small bilateral pleural effusions. 2. Bibasilar densities have also progressed and may represent atelectasis from the pleural effusions. CT ABD/PELVIS: 1. Previous seen noted destructive changes of the L2-3 and superior endplate of L2 remain evident. However, previously noted fluid in the L2-3 disc space is no longer present, and vacuum disc phenomenon is instead apparent at this level. This suggests against active infection at L2-3. Absence of destructive of endplate changes at the inferior endplate of L1 with suggest against osteomyelitis discitis of L1-2. 2. No evidence of recurrence of the iliopsoas abscess. ECHO:The left ventricular apex is akinetic, and contrast images suggest apical pseudoaneurysm. * The remaining myocardial segments reveals normal wall motion. * There is no left ventricular apical mural thrombus. * Ejection Fraction = 65-70%. * The aortic valve is moderately calcified. * Aortic stenosis is absent. * Mild aortic regurgitation. * There is moderate mitral annular calcification. * There is mild tricuspid regurgitation. * Mild pulmonary hypertension is present. * The pulmonary artery systolic pressure is calculated to be 41 mm Hg. * Diastolic dysfunction, Grade II (pseudonormalization pattern). * Compared to the report of the prior study interpreted by the undersigned in 10/17/16, there is no significant interval change. 3. 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 4. Increasing bilateral pleural effusions, now moderate in size, with associated atelectasis. CHEST US: Bilateral effusions noted. The greatest pocket on the right measures 3 cm from the parietal to visceral pleura. The greatest pocket on the left is somewhat smaller. Effusions do not appear complex. Estimated volume of the right effusion is 360 mL. Estimated volume of the left effusion is 77 mL. Medication Reconciliation New Medications: Ciprofloxacin Hcl (Cipro) 500 Mg Tab 500 MG PO BID for 7 Days, #14 TAB Vancomycin Hcl (Vancomycin) 125 Mg Cap 125 MG PO QID for 14 Days Lactobacillus Acidophilus (Floranex) 1 Tab Tab 2 TAB PO BID, #90 TAB 1 Refill Continued Medications: Acetaminophen (Tylenol) 500 Mg Tab 500 MG PO Q4H PRN for Pain or Fever, TAB Aspirin (Aspirin Ec) 81 Mg Tab 81 MG PO DAILY Cephalexin Monohydrate (Keflex) 250 Mg Cap 250 MG PO QID, CAP Dutasteride (Avodart) 0.5 Mg Cap 0.5 MG PO DAILY, CAP Furosemide (Lasix) 20 Mg Tab 20 MG PO DAILY, TAB Lidocaine (Lidoderm Patch 5%) 1 Ea Tdsy 1 PATCH TOP DAILY PRN for Pain Metoprolol Tartrate (Lopressor) (Lopressor) 50 Mg Tab 50 MG PO BID, TAB Nitroglycerin (Nitrostat) 0.4 Mg Tab 0.4 MG UT UD PRN for Chest Pain, BTL PLACE ONE TABLET UNDER THE TONGUE EVERY 5 MINUTES FOR UP TO 3 DOSES IF NEEDED FOR CHEST PAIN Polyethylene Glycol 3350 (Bulk (Polyethylene Glycol 3350) 1 Pow Pow 17 GM PO DAILY PRN for Constipation, GM Potassium Chloride (Potassium Chloride Er) 8 Meq Cap 8 MEQ PO DAILY Senna/Docusate Sod (Senokot S) 1 Tab Tab 2 TABS PO HS PRN for Constipation, TAB Admission Information HPI (per Admitting provider): This is a 86yo M with PMH of chronic urinary retention (with indwelling haas catheter), h/o UTIs, diastolic HF and A Fib who presents with a 3 day history of fever, chills and generalized weakness. 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 Per daughter, who is patient's primary caregiver and casino cage manager (patient and daughter denied offer for technical sales advisor), by late January patient's health had improved and he was able to ambulate at home via walker. Three days ago, patient started to feel weak, fatigued and experience fever/chills. Daughter then checked patient's vitals at home and found him to be consistently hypotensive and tachycardic, with decreased PO intake. Went to see PCP today, who suggested they immediately come to the ER for urosepsis work-up. Per chart review, the PCP had a long discussion with daughter about bringing patient to the hospital verses inquiring about palliative/hospice services. Eventually the family decided to bring patient to ER for treatment but desire to continue hospice discussion in the future if his health continues to decline. Today, patient endorses chills, generalized weakness and fatigue. Has also been having diarrhea for the past few days. Denies confusion, dizziness, CP, dyspnea , SOB, orthopnea, abd pain, nausea/vomiting, urinary symptoms, LE swelling or focal weakness. Physical Exam (per Admitting): General Appearance: + mild distress (Ill appearing, frail. Fatigued and intermittently sleeping during exam but cooperative.) Head: normocephalic, atraumatic Eyes: normal inspection, PERRL ENT: hearing grossly normal Neck: supple, no adenopathy, no JVD, trachea midline Respiratory/Chest: chest non-tender, no respiratory distress, no accessory muscle use, + decreased breath sounds Cardiovascular: regular rate, rhythm, no murmur, normal peripheral pulses Abdomen/GI: normal bowel sounds, non tender, soft, no organomegaly Genitourinary - Male: + pertinent finding (indwelling catheter) Back: normal inspection, no CVA tenderness Extremities/Musculoskelatal: normal inspection, no calf tenderness, no pedal edema Neurologic/Psych: no motor/sensory deficits, alert, normal mood/affect, oriented x 3 Skin: normal color, warm/dry, no rash Hospital Course This is a 86yo M with PMH of chronic urinary retention (with indwelling haas catheter), h/o UTIs, diastolic HF and A Fib who presents with a 3 day history of fever, chills and generalized weakness. Sepsis 2/2 from uti from chronic indwelling haas cath' from c diff initially started on iv vanco and Zosyn and po vanco urine cx growing pseudomonas sensitive to cipro c diff positive currently on cipro and po vancomycin hemodynamics stable continue same for now will complete 10 days of cipro and 21 days of po vanco stable UTI, complicated: secondary to indwelling catheter 2/2 urinary retention, BPH abx as above replace the Haas and haas care. JAVAD: Cr of 1.7 on admission Baseline Cr of ~1 Lasix restarted stable will f/u labs Elevated troponin: demand ischemia trending down B/L PLEURAL EFFUSIONS SMALL ON LASIX F/U WITH PCP H/o lumbar spine osteomyelitis and psoas abscess: Completed 2 months of PICC line abx in December-January r follow-up CT Abd/pelvis 04/14/17 no active infection- QUESTION OF APICAL VENTRICULAR THROMBUS ON CT SCAN BUT WAS NEGATIVE ON ECHO. seems stable Diarrhea: c diff positive on po vancomycin Chronic diastolic HF: Lasix on hold which will be restarted today monitor for volume overload A Fib: EKG shows sinus rhythm Decreased metoprolol dose to 25mg BID 2/ hypotension Stopped Coumadin after last admission will monitor in tele DVT px hep sub q code status DNR Disposition possible d/c today pt/ot social service for d/c planning Total time spent on discharge = 40 MINUTES This includes examination of the patient, discharge planning, medication reconciliation, and communication with other providers. Discharge Instructions Please take this sheet to every appointment for the next month Discharge Instructions Date of Service Apr 15, 2017. Admission Reason for Admission: Generalized Weakness, Uti Discharge Discharge Diagnosis / Problem: SEPSIS, UTI,C. DIFF Discharge Goals Goal(s): Decrease discomfort, Improve function Activity Recommendations Activity Limitations: resume your previous activity . Instructions / Follow-Up Instructions / Follow-Up FOLLOWUP WITH FAMILY DOCTOR ON Mar AT 11:05AM FOLLOWUP WITH INFECTIOUS DISEASE IN 1-2 WEEKS Current Hospital Diet Patient's current hospital diet: Low Sodium Diet (2gm Na), AHA Diet (Heart Healthy) Discharge Diet Recommended Diet: AHA Diet (Heart Healthy) Pending Studies Studies pending at discharge: no Medical Emergencies . Who to Call and When: Medical Emergencies: If at any time you feel your situation is an emergency, please call 911 immediately. . Non-Emergent Contact Non-Emergency issues call your: Primary Care Provider . . "Provider Documentation" section prepared by Dragan Cabral. . VTE Core Measure Inpt VTE Proph given/why not?: Unfractionated heparin SQ
--- NOTE | 2017-04-15 16:05 | ECHOCARDIOGRAM REPORT ---
*NOTICE TO RECEIVING DEMOCRAT AGENCY This information is strictly Confidential and protected under [place] law. [place] law prohibits you from making any further disclosure of this information unless further disclosure is expressly permitted by the written consent of the person to whom it pertains or is authorized by law. A general authorization for the release of medical or other information is not sufficient for this purpose. Hospital accepts no responsibility if the information is made available to any other person, INCLUDING THE PATIENT. Interpretation Summary * Name: SHARAD LEE Study Date: 04/15/2017 07:22 AM BP: 150/74 mmHg * Patient Location: .[id number]\W252\S\1 HR: 57 * : 1930 (M/d/) Gender: Male Height: 66 in * Age: 86 yrs Ethnicity: [place] Weight: 139 lb * Ordering Physician: Dragan Cabral * Referring Physician: Selene Bentley * Performed By: Ofelia Maier RDCS * * Reason For Study: Evaluate for ventricular thrombus * BSA: 1.7 m2 * -- Conclusions -- * The left ventricular apex is akinetic, and contrast images suggest apical pseudoaneurysm. * The remaining myocardial segments reveals normal wall motion. * There is no left ventricular apical mural thrombus. * Ejection Fraction = 65-70%. * The aortic valve is moderately calcified. * Aortic stenosis is absent. * Mild aortic regurgitation. * There is moderate mitral annular calcification. * There is mild tricuspid regurgitation. * Mild pulmonary hypertension is present. * The pulmonary artery systolic pressure is calculated to be 41 mm Hg. * Diastolic dysfunction, Grade II (pseudonormalization pattern). * Compared to the report of the prior study interpreted by the undersigned in 10/17/16, there is no significant interval change. Procedure Details * A complete two-dimensional transthoracic echocardiogram was performed (2D, M-mode, Doppler and color flow Doppler). * A contrast injection of Definity was performed to improve assessment of LV function. * Contrast was injected into an intravenous site in the right arm. * One vial of Definity ultrasound contrast was diluted in normal saline to a total volume of 10 ml. A total of '2' ml of solution was administered during imaging. * Lot # [id number] of Definity utilized for procedure. * Expiration date MAY 15. * The attending nurse who injected the contrast agent was Dary Leija RN. Left Ventricle * The left ventricle is normal in size. * There is normal left ventricular wall thickness. * Ejection Fraction = 65-70%. * Left ventricular systolic function is normal. * The left ventricular apex is akinetic, and contrast images suggest apical pseudoaneurysm. The remaining myocardial segments reveals normal wall motion. There is no left ventricular apical mural thrombus. Right Ventricle * The right ventricle is normal size. * The right ventricular systolic function is normal as assessed by tricuspid annular plane systolic excursion (TAPSE) (normal >1.5 cm). Atria * The left atrial size is normal. * Right atrial size is normal. * There is no evidence of atrial septal defect, but resolution does not allow assessment for a patent foramen ovale. Mitral Valve * There is moderate mitral annular calcification. * There is no mitral valve stenosis. * Significant mitral regurgitation is absent. Tricuspid Valve * The tricuspid valve is normal. * There is no tricuspid stenosis. * There is mild tricuspid regurgitation. * Mild pulmonary hypertension is present. The pulmonary artery systolic pressure is calculated to be 41 mm Hg. Aortic Valve * The aortic valve is moderately calcified. * Aortic stenosis is absent. * Mild aortic regurgitation. Pulmonic Valve * The pulmonary valve is not well seen, but the Doppler examination is normal without significant regurgitation or stenosis. Great Vessels * The aortic root and proximal ascending aorta are normal sized. Pericardium/Pleural * There is no pericardial effusion. Great Vessels * Normal inferior vena cava diameter and respiratory variation suggests normal central venous pressure. * Normal inferior vena cava size and collapsability with sniff indicates a normal right atrial pressure of 3 mmHg Left Ventricular Diastolic Function * Diastolic dysfunction, Grade II (pseudonormalization pattern). MMode 2D Measurements and Calculations IVSd 0.90 cm LVIDd 3.5 cm LVIDs 1.9 cm LVPWd 0.97 cm IVS/LVPW 0.93 FS 44.8 % EDV(Teich) 49.6 ml ESV(Teich) 11.3 ml EF(Teich) 77.1 % EDV(cubed) 41.5 ml ESV(cubed) 7.0 ml EF(cubed) 83.2 % LV mass(C)d 92.1 grams LV mass(C)dI 53.7 grams/m\S\2 SV(Teich) 38.3 ml SI(Teich) 22.3 ml/m\S\2 SV(cubed) 34.6 ml SI(cubed) 20.2 ml/m\S\2 Ao root diam 3.5 cm Ao root area 9.7 cm\S\2 ACS 1.2 cm LA dimension 3.3 cm LA/Ao 0.94 LVAd ap4 28.8 cm\S\2 LVLd ap4 8.9 cm EDV(MOD-sp4) 83.4 ml EDV(sp4-el) 79.3 ml LVAs ap4 12.5 cm\S\2 LVLs ap4 8.0 cm ESV(MOD-sp4) 20.8 ml ESV(sp4-el) 16.5 ml EF(MOD-sp4) 75.1 % EF(sp4-el) 79.1 % LVAd ap2 27.0 cm\S\2 LVLd ap2 8.6 cm EDV(MOD-sp2) 76.2 ml EDV(sp2-el) 72.1 ml LVAs ap2 11.6 cm\S\2 LVLs ap2 7.7 cm ESV(MOD-sp2) 15.2 ml ESV(sp2-el) 14.9 ml EF(MOD-sp2) 80.0 % EF(sp2-el) 79.4 % LVLd %diff -4.12 % EDV(MOD-bp) 80.6 ml LVLs %diff -4.12 % ESV(MOD-bp) 16.8 ml EF(MOD-bp) 79.2 % SV(MOD-sp4) 62.6 ml SI(MOD-sp4) 36.5 ml/m\S\2 SV(MOD-sp2) 61.0 ml SI(MOD-sp2) 35.6 ml/m\S\2 SV(MOD-bp) 63.9 ml SI(MOD-bp) 37.3 ml/m\S\2 SV(sp4-el) 62.7 ml SI(sp4-el) 36.6 ml/m\S\2 SV(sp2-el) 57.2 ml SI(sp2-el) 33.4 ml/m\S\2 Doppler Measurements and Calculations MV E max stephanie 119.3 cm/sec MV A max stephanie 81.5 cm/sec MV E/A 1.5 MV dec time 0.29 sec Ao V2 max 142.5 cm/sec Ao max PG 8.1 mmHg Ao max PG (full) 3.8 mmHg AI max stephanie 393.0 cm/sec AI max PG 61.8 mmHg AI dec slope 164.1 cm/sec\S\2 AI P1/2t 701.4 msec LV V1 max PG 4.3 mmHg LV V1 max 103.8 cm/sec PA V2 max 86.9 cm/sec PA max PG 3.0 mmHg PA acc slope 480.1 cm/sec\S\2 PA acc time 0.12 sec PI end-d stephanie 136.8 cm/sec TR max stephanie 310.8 cm/sec PA pr(Accel) 26.7 mmHg
== END 2017-04-15 13:51 | disposition home health service (06) | DRG 698 ==
LOC: C.EDB 11:06 → C.2T 14:44 → ENRESERV 16:09 → EDBEDREQ 04-12 17:04 → ENRESERV 04-12 17:07 → C.MS2W 04-12 17:50
PROVIDERS: ADMIT Internal Medicine; ATTEND Internal Medicine
DX: T83.511A Infection and inflammatory reaction due to indwelling urethral catheter, initial encounter (principal); A41.9 Sepsis, unspecified organism; G93.41 Metabolic encephalopathy; I50.32 Chronic diastolic (congestive) heart failure; J90 Pleural effusion, not elsewhere classified; N17.9 Acute kidney failure, unspecified; A04.7 Enterocolitis due to Clostridium difficile; I24.8 Other forms of acute ischemic heart disease; N39.0 Urinary tract infection, site not specified; B96.5 Pseudomonas (aeruginosa) (mallei) (pseudomallei) as the cause of diseases classified elsewhere; E86.0 Dehydration; R33.9 Retention of urine, unspecified; I48.91 Unspecified atrial fibrillation; N40.1 Benign prostatic hyperplasia with lower urinary tract symptoms; Z66 Do not resuscitate; Z79.82 Long term (current) use of aspirin; Z79.899 Other long term (current) drug therapy

== ENCOUNTER → 2017-07-08 | Outpatient (CLI) | payer OTHER ==
[~2017-07-08] MED LIST changes: -CEPH500C2 PO; +CIPR-255 PO; -HYDR-5688 PO; +KFL/250 PO; +LCTX PO; -TAMS0.4C38 PO; +VANC5CAP PO
== END | disposition home or self-care (01) ==
LOC: C.LAB 14:04
PROVIDERS: ATTEND Nurse Practitioner Adult Health
DX: R39.9 Unspecified symptoms and signs involving the genitourinary system (principal)

== ENCOUNTER 2018-08-24 03:46 | Inpatient (IN) ==
[2018-08-24 04:48] LABS: Appearance Urine Cloudy (Clear); Bacteria Urine Automated 4+ (Negative); Bilirubin Urine Negative (Negative); Blood Urine 3+ (Negative); Color Urine Yellow; Glucose Urine UA 3+ (Negative); Ketones Urine Negative (Negative); Leukocyte Esterase Urine 1+ (Negative); Nitrite Urine Negative (Negative); Protein Urine Negative (Negative); RBC Urine Automated >30 /hpf (0-4); Specific Gravity Urine 1.029 (1.000-1.030); Urobilinogen Urine Negative (Negative); WBC Urine Automated >30 /hpf (0-5)
[2018-08-24 05:00] LABS: INR 1.1 (0.9-1.1); Partial Thromboplastin Ratio 0.9; Partial Thromboplastin Time 23.6 Seconds (21.0-31.0)
[2018-08-24 05:01] LABS: Alanine Aminotransferase 131 U/L (12-78); Aspartate Aminotransferase 87 U/L (15-37); BUN Creatinine Ratio 15.3 (10-20); Blood Urea Nitrogen 25 mg/dl (7-18); Calcium 9.7 mg/dl (8.5-10.1); Carbon Dioxide 25 mmol/L (21-32); Chloride 95 mmol/L (98-107); Est GFR (African American) 42.7; Est GFR (Non-African American) 36.8; Glucose 331 mg/dl (70-99); Potassium 3.9 mmol/L (3.5-5.1); Sodium 131 mmol/L (136-145)
[2018-08-24 05:05] LABS: Alkaline Phosphatase 101 U/L (45-117); Bilirubin,Total 1.1 mg/dl (0.2-1); Globulin 4.1 gm/dl (2.5-4.0); Total Protein 8.1 gm/dl (6.4-8.2)
[2018-08-24 05:22] LABS: Cast Urine Automated 0 /lpf (0-5)
[2018-08-24 05:31] LABS: Beta-Hydroxybutyrate 4.51 mg/dl (0.2-2.81)
[2018-08-24] MEDS ORDERED: SODIUM CHLORIDE 0.9% 1000ML 1,000 ML IV ONE ×2 (05:33→08:42)
[2018-08-24 05:42] LABS: Hematocrit (blood only) 50.5 % (42-52); Hemoglobin 18.1 g/dL (14.0-18.0); Mean Corpuscular Hgb Conc 35.8 g/dL (32-36); Mean Corpuscular Volume 84.4 fL (80-100); Mean Platelet Volume 11.9 fL (7.4-10.4); Platelet Count 90 K/uL (130-400); RDW Coefficient of Variation 13.8 % (11.5-14.5); RDW Standard Deviation 42.4 fL (36.4-46.3); Red Blood Count 5.98 M/uL (4.7-6.1); White Blood Count 8.91 K/uL (4.8-10.8)
[2018-08-24 05:43] LABS: Basophils # (auto) 0.02 K/uL (0-0.2); Basophils % (auto) 0.2 %; Eosinophils # (auto) 0.14 K/uL (0-0.5); Eosinophils % (auto) 1.6 %; Immature Granulocytes # (auto) 0.02 K/uL (0.00-0.02); Immature Granulocytes % (auto) 0.2 %; Lymphocytes # (auto) 4.08 K/uL (1.2-3.4); Lymphocytes % (auto) 45.8 %; Monocytes % (auto) 6.7 %; Neutrophils # (auto) 4.05 K/uL (1.4-6.5); Neutrophils % (auto) 45.5 %; Platelet Estimate Decreased (Normal)
[2018-08-24] MEDS ORDERED: LEVOFLOXACIN/D5W 750 MG/150 ML BAG IV STA (05:54)
--- NOTE | 2018-08-24 06:39 | XRay Report ---
XR chest 1V portable CLINICAL HISTORY: 88 years-old Male presenting with tachypnea. TECHNIQUE: Portable upright AP view of the chest was obtained. COMPARISON: 04/11/2017. FINDINGS: Patient is CONNOR rotated. Mildly exaggerated thoracic kyphosis suggested. Atherosclerosis of the aortic arch. Cardiac silhouette top normal in size. Mild hyperinflation. No focal opacity. No pleural effus ion or pneumothorax. Degenerative changes of the thoracic spine. IMPRESSION: 1. No acute cardiopulmonary disease. Electronically signed by: Donald Varela M.D. 08/24/2018 6:37 AM
[2018-08-24] MEDS ORDERED: PENDING D5 1/2NS+20mEq KCL IVF SCH (08:09)
[2018-08-24] MEDS ORDERED: VANCOMYCIN CONSULT ACTIVE PRN (08:09)
[2018-08-24] MEDS ORDERED: HYDROmorphone INJ 0.5 MG/0.5 ML SYR IV PRN (08:09)
[2018-08-24] MEDS ORDERED: VANCOMYCIN HCL 1,000 MG in SODIUM CHLORIDE 0.9% 250 ML IV SCH (08:09)
[2018-08-24] MEDS ORDERED: PENDING NSS+20mEq KCL IVF SCH (08:09)
[2018-08-24] MEDS ORDERED: INSULIN REGULAR 250 UNITS in SODIUM CHLORIDE 0.9% 247.5 ML IV SCH (08:09)
[2018-08-24] MEDS ORDERED: ACETAMINOPHEN 325 MG TAB PO PRN (08:09)
[2018-08-24] MEDS ORDERED: PIPERACILLIN/TAZOBACTAM 4.5 GM in DEXTROSE 5% 100 ML IV STA (08:09)
[2018-08-24] MEDS ORDERED: PIPERACILL/TAZOBAC CONSULT ACTIVE PRN (08:09)
[2018-08-24] MEDS ORDERED: DC ALL PREVIOUSLY ORDERED DIABETES MEDS ONE (08:09)
[2018-08-24] MEDS ORDERED: POLYETHYLENE (MIRALAX) 17 GM PACK PO PRN (08:09)
[2018-08-24] MEDS ORDERED: ALUMINUM/MAGNESIUM SUSP 30 ML UDC PO PRN (08:09)
[2018-08-24] MEDS ORDERED: MODERATE STRESS LEVEL ONE (08:09)
[2018-08-24] MEDS ORDERED: ONDANSETRON INJ 2 MG/ML 2 ML VIAL IV PRN (08:09)
[2018-08-24] MEDS ORDERED: NITROGLYCERIN SL 0.4 MG/TAB TAB SL PRN (08:09)
[2018-08-24] MEDS ORDERED: SODIUM CHLORIDE 0.9% 1000ML 1,000 ML IV SCH (08:09)
[2018-08-24] MEDS ORDERED: DKA GOAL RANGE 150-250 mg/dl ONE (08:09)
[2018-08-24] MEDS ORDERED: PHARMACY GLYCEMIC MGMT CONSULT PRN (08:28)
[2018-08-24] MEDS ORDERED: DEXTROSE 50% 50 ML SYRINGE IV PRN (08:31)
[2018-08-24] MEDS ORDERED: GLUCAGON FOR INJ 1 MG VIAL IM PRN (08:31)
[2018-08-24] MEDS ORDERED: GLUCOSE 40% GEL 15 GM TUBE PO PRN (08:31)
[2018-08-24] MEDS ORDERED: CARBOHYDRATES FOR HYPOGLYCEMIA PO PRN (08:31)
[2018-08-24] MEDS ORDERED: GLUCOSE 10 TABS/TUBE PO PRN (08:31)
--- NOTE | 2018-08-24 08:31 | Emergency Department Note ---
Entered by Nino Kerr acting as a scribe for History of Present Illness General Chief complaint: Abdominal Pain Stated complaint: SHARP ABD PAIN Time Seen by Provider: 08/24/18 04:02 Source: family (daughter) Limitations: language barrier History of Present Illness Location: abdomen Severity: severe and similar to prior episodes Pain Consistency: + constant Maximum Pain Intensity: 8 Quality: + burning (chest and back) and + constant (abdomen) Associated symptoms: + diaphoresis The patient is an 88 year old male who presents to the Emergency Room with complaints of constant and severe abdominal pain. Per daughter, the patient has no feeling in his mid abdomen and cannot push to urinate so he has been using a catheter for the past 2 years. The daughter states the patient has burning feeling in his chest and back. She states the patient has had burning in his chest before and it is usually from a urinary infection. She states the patient has had many urinary infections. She notes the patient has been sweating and has pain in his buttock. Family is translating for this patient as he only speaks [place]. Home Medications Home Medications Medication Instructions Recorded Confirmed Type aspirin 81 mg PO DAILY 06/17/18 08/24/18 History finasteride 5 mg PO DAILY 06/17/18 08/24/18 History furosemide 20 mg PO Q OTHER DAY 06/17/18 08/24/18 History methenamine hippurate 1 g PO QPM 06/17/18 08/24/18 History potassium chloride 8 meq PO Q OTHER DAY 06/17/18 08/24/18 History Avodart 0.5 mg PO DAILY 08/24/18 08/24/18 History metoprolol succinate 50 mg PO DAILY 08/24/18 08/24/18 History polyethylene glycol 3350 [Miralax] 17 g PO DAILY PRN 08/24/18 08/24/18 History sennosides-docusate sodium 2 tab PO HS PRN 08/24/18 08/24/18 History [Senokot-S] Allergies Allergy/AdvReac Type Severity Reaction Status Date / Time No Known Allergies Allergy Verified 08/24/18 06:08 Past Med/Surg History Medical History BPH (benign prostatic hyperplasia) (Chronic) PAF (paroxysmal atrial fibrillation) (Chronic) Diastolic CHF (Chronic) Urinary retention (Chronic) History of osteomyelitis (Resolved) "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 and A total of 10 systems reviewed and were otherwise negative Physical Exam Vital Signs Vital Signs - 24 hr 08/24/18 03:50 08/24/18 05:36 08/24/18 07:00 Temperature 36.6 C Temperature Source Oral Sepsis Recent Fever Within 48 Hours No Sepsis Action Taken by Nursing No Action Required Pulse Rate 61 Pulse Rate [Left] 74 80 Pulse Rhythm [Left] Regular Regular Pulse Strength [Left] Normal Respiratory Rate 18 20 20 Respiratory Effort / Characteristics Non-Labored Non-Labored Non-Labored Respiratory Depth Normal Normal Normal Respiratory Pattern Regular Blood Pressure 188/92 H Blood Pressure [Left Arm] 133/85 97/87 L Blood Pressure [Right Arm] Blood Pressure Mean 124 Blood Pressure Mean [Left Arm] 101 90 Blood Pressure Mean [Right Arm] Blood Pressure Position [Left Arm] Lying Blood Pressure Position [Right Arm] Pulse Oximetry 100 99 99 Oxygen Delivery Method Room Air Room Air Room Air 08/24/18 07:46 08/24/18 12:02 08/24/18 15:08 Temperature 36.3 C L 36.4 C L 36.3 C L Temperature Source Oral Oral Oral Sepsis Recent Fever Within 48 Hours Sepsis Action Taken by Nursing Pulse Rate Pulse Rate [Left] 72 75 73 Pulse Rhythm [Left] Pulse Strength [Left] Respiratory Rate 19 18 16 Respiratory Effort / Characteristics Respiratory Depth Normal Respiratory Pattern Regular Blood Pressure Blood Pressure [Left Arm] 164/82 H 127/77 101/61 Blood Pressure [Right Arm] Blood Pressure Mean Blood Pressure Mean [Left Arm] 109 93 74 Blood Pressure Mean [Right Arm] Blood Pressure Position [Left Arm] Sitting Lying Blood Pressure Position [Right Arm] Pulse Oximetry 99 92 96 Oxygen Delivery Method Room Air Room Air Room Air 08/24/18 19:22 Temperature 37.0 C Temperature Source Oral Sepsis Recent Fever Within 48 Hours Sepsis Action Taken by Nursing Pulse Rate Pulse Rate [Left] 71 Pulse Rhythm [Left] Pulse Strength [Left] Respiratory Rate 19 Respiratory Effort / Characteristics Respiratory Depth Respiratory Pattern Blood Pressure Blood Pressure [Left Arm] Blood Pressure [Right Arm] 116/70 Blood Pressure Mean Blood Pressure Mean [Left Arm] Blood Pressure Mean [Right Arm] 85 Blood Pressure Position [Left Arm] Blood Pressure Position [Right Arm] Lying Pulse Oximetry 96 Oxygen Delivery Method Room Air General: PE was done with the patient's daughter translating. HEENT: Head - normocephalic and atraumatic Pupils are equal, round, and reactive to light. Extraocular eye muscles are intact, and sclera are anicteric. Nose - moist nasal mucosa without discharge. Mouth - moist buccal mucosa. Oropharynx is nonerythematous and there is no tonsillar exudate or edema noted. Neck: Supple; no JVD, nuchal rigidity, cervical lymphadenopathy, or auscultated bruits. Heart: Regular rate and rhythm. There is a normal S1 and S2 with no murmurs, clicks, or gallops appreciated. Lungs: Clear to auscultation bilaterally with no wheezes, rales, or rhonchi. Abdomen: Soft with good bowel sounds. There are no palpable pulsatile masses or hepatosplenomegaly. There is no guarding, rigidity, or rebound noted. Suprapubic abdominal pain with palpation. Abdomen is significantly distended. Extremities: No evidence of cyanosis, clubbing, or edema. There are easily palpable peripheral pulses. Skin: warm, dry, and pale with poor turgor and no rashes. Course 0413: Past medical records reviewed. The patient was evaluated in room A2, and a complete history and physical examination were performed. A septic protocol was performed. 0514: Nursing staff replaced the patient's folly catheter and urine is draining. A specimen was sent for urinalysis and culture. 0535: I discussed the results of the labs with the patient's family and they were able to explain to the patient the need for admission. 0555: I reviewed the patient's case with Dr. Marianna Lancaster Hospitalist. He will evaluate the patient for further management. 0609: Levaquin/D5w 750 mg in 150 mls @ 100 mls/hr IV NOW STA 0633: Sodium Chloride 1000 ml @ 999 mls/hr IV Administered Medications Aspirin (Ecotrin Ectab) 81 mg PO DAILY [facility] Stop: 09/23/18 08:59 Last Admin: 08/24/18 12:00 Dose: 81 mg Finasteride (Proscar) 5 mg PO DAILY [facility] Stop: 09/23/18 08:59 Last Admin: 08/24/18 12:00 Dose: 5 mg Heparin Sodium (Porcine) (Heparin Sodium (Porcine)) 5,000 units SQ Q12 [facility]ELLE Stop: 09/23/18 10:29 Last Admin: 08/24/18 20:23 Dose: 5,000 units Admin: 08/24/18 12:48 Dose: 5,000 units Sodium Chloride (Nss 1000ml) 1,000 mls @ 80 mls/hr IV .[id number] [facility] Stop: 09/23/18 08:08 Last Infusion: 08/24/18 17:30 Dose: 0 mls/hr Admin: 08/24/18 17:26 Dose: Not Given Infusion: 08/24/18 13:51 Dose: 80 mls/hr Admin: 08/24/18 11:30 Dose: 100 mls/hr Piperacillin Sod/Tazobactam (Sod 3.375 gm/ Dextrose) 115 mls @ 28.75 mls/hr IV Q8H [facility]; Protocol Stop: 09/03/18 13:59 Last Admin: 08/24/18 21:31 Dose: 28.8 mls/hr Infusion: 08/24/18 19:32 Dose: 0 mls/hr Admin: 08/24/18 14:08 Dose: 28.8 mls/hr Insulin Aspart (Novolog Flexpen) 0 units SC ACHS [facility]; Protocol Stop: 09/23/18 09:14 Last Admin: 08/24/18 20:28 Dose: 1 units Admin: 08/24/18 17:27 Dose: 5 units Admin: 08/24/18 12:50 Dose: 4 units Admin: 08/24/18 09:42 Dose: 7 units Insulin Glargine (Lantus Solostar Pen) 0 units SC BID [facility]; Protocol Stop: 09/23/18 20:59 Last Admin: 08/24/18 20:27 Dose: 5 units Methenamine Hippurate (Urex) 1 gm PO QPM CHRISTELLE Stop: 09/03/18 20:59 Last Admin: 08/24/18 20:28 Dose: 1 gm Metoprolol Succinate (Toprol Xl) 50 mg PO DAILY [facility]ELLE Stop: 09/23/18 08:59 Last Admin: 08/24/18 12:00 Dose: 50 mg Discontinued Medications Sodium Chloride (Nss 1000ml) 1,000 mls @ 999 mls/hr IV .Q1H1M ONE Stop: 08/24/18 06:33 Last Infusion: 08/24/18 06:35 Dose: 0 mls/hr Admin: 08/24/18 05:38 Dose: 999 mls/hr Levofloxacin/Dextrose (Levaquin/D5w) 750 mg in 150 mls @ 100 mls/hr IV NOW STA Stop: 08/24/18 07:23 Last Infusion: 08/24/18 07:29 Dose: 0 mls/hr Admin: 08/24/18 06:09 Dose: 100 mls/hr Sodium Chloride (Nss 1000ml) 1,000 mls @ 999 mls/hr IV .Q1H1M [facility]STELLE Stop: 08/24/18 09:09 Last Admin: 08/24/18 09:31 Dose: Not Given Insulin Human Regular 1.5 (units/ Syringe) 1.5 mls @ 0 mls/min IV TODAY@0845 ONE Stop: 08/24/18 08:46 Last Admin: 08/24/18 09:31 Dose: Not Given Vancomycin HCl 1,500 mg/ (Sodium Chloride) 530 mls @ 200 mls/hr IV TODAY@0900 ONE Stop: 08/24/18 11:38 Last Infusion: 08/24/18 13:06 Dose: 0 mls/hr Admin: 08/24/18 09:30 Dose: 200 mls/hr Piperacillin Sod/Tazobactam (Sod 3.375 gm/ Dextrose) 115 mls @ 230 mls/hr IV NOW ONE; Protocol Stop: 08/24/18 09:29 Last Infusion: 08/24/18 10:59 Dose: 0 mls/hr Admin: 08/24/18 09:29 Dose: 230 mls/hr Sodium Chloride (Nss 1000ml) 1,000 mls @ 999 mls/hr IV .Q1H1M ONE Stop: 08/24/18 09:42 Last Infusion: 08/24/18 10:59 Dose: 0 mls/hr Admin: 08/24/18 09:29 Dose: 999 mls/hr Potassium Chloride (K Ross / Wtr) 10 meq in 100 mls @ 100 mls/hr IV Q1H CHRISTELLE Stop: 08/24/18 14:29 Last Infusion: 08/24/18 17:30 Dose: 0 mls/hr Admin: 08/24/18 16:23 Dose: 100 mls/hr Infusion: 08/24/18 16:23 Dose: 50 mls/hr Admin: 08/24/18 15:08 Dose: 50 mls/hr Infusion: 08/24/18 15:06 Dose: 50 mls/hr Admin: 08/24/18 13:06 Dose: 50 mls/hr Insulin Glargine (Lantus Solostar Pen) 10 units SC ONE ONE; Protocol Stop: 08/24/18 09:16 Last Admin: 08/24/18 09:42 Dose: 10 units Miscellaneous (Insulin Protocol Dka Goal Range) 1 ea N/A ONE ONE Stop: 08/24/18 08:10 Last Admin: 08/24/18 09:27 Dose: Not Given Miscellaneous (Insulin Protocol Moderate Stress Level) 1 ea N/A ONE ONE Stop: 08/24/18 08:10 Last Admin: 08/24/18 09:28 Dose: Not Given Miscellaneous (Pending D5 1/2ns+20meq Kcl Ivf) 1 ea N/A Q2H CHRISTELLE Stop: 09/23/18 08:08 Last Admin: 08/24/18 09:31 Dose: Not Given Miscellaneous (Pending Nss+20meq Kcl Ivf) 1 ea N/A Q2H CHRISTELLE Stop: 09/23/18 08:08 Last Admin: 08/24/18 09:31 Dose: Not Given Miscellaneous Information (Dc All Previously Ordered Diabetes Meds) 1 ea N/A ONE ONE Stop: 08/24/18 08:10 Last Admin: 08/24/18 09:27 Dose: Not Given Medical Decision Making Differential Diagnosis The patient is an 88 year old male who presents to the Emergency Room with complaints of constant and severe abdominal pain. Differential Diagnosis includes: urinary retention, UTI, sepsis, and dehydration Medical Records Attestation: I reviewed the patient's medical records. Home Medications Current Medication List: was personally reviewed by me Laboratory Data Attestation: I reviewed the patient's lab results. Result diagrams: 08/24/18 04:30 08/24/18 15:44 Lab Results 08/24/18 08/24/18 08/24/18 Range/Units 04:30 04:30 04:30 WBC 8.91 (4.8-10.8) K/uL RBC 5.98 (4.7-6.1) M/uL Hgb 18.1 H (14.0-18.0) g/dL Hct 50.5 (42-52) % MCV 84.4 (80-100) fL MCH 30.3 (25-34) pg MCHC 35.8 (32-36) g/dL RDW Std Deviation 42.4 (36.4-46.3) fL RDW Coeff of Zeus 13.8 (11.5-14.5) % Plt Count 90 L (130-400) K/uL MPV 11.9 H (7.4-10.4) fL Immature Gran % (Auto) 0.2 % Neut % (Auto) 45.5 % Lymph % (Auto) 45.8 % [place] % (Auto) 6.7 % Eos % (Auto) 1.6 % Baso % (Auto) 0.2 % Immature Gran # (Auto) 0.02 (0.00-0.02) K/uL Neut # (Auto) 4.05 (1.4-6.5) K/uL Lymph # (Auto) 4.08 H (1.2-3.4) K/uL [place] # (Auto) 0.60 H (0.11-0.59) K/uL Eos # (Auto) 0.14 (0-0.5) K/uL Baso # (Auto) 0.02 (0-0.2) K/uL Platelet Estimate Decreased (Normal) ESR (0-14) mm/hr PT 11.0 (9.0-12.0) Seconds INR 1.1 (0.9-1.1) APTT 23.6 (21.0-31.0) Seconds PTT Ratio 0.9 Sodium 131 L (136-145) mmol/L Potassium 3.9 (3.5-5.1) mmol/L Chloride 95 L (98-107) mmol/L Carbon Dioxide 25 (21-32) mmol/L Anion Gap 11.0 (3-11) BUN 25 H (7-18) mg/dl Creatinine 1.63 H (0.6-1.4) mg/dl Est Cr Clr Drug Dosing Not Reportable Est GFR ( Amer) 42.7 Est GFR (Non-Af Amer) 36.8 BUN/Creatinine Ratio 15.3 (10-20) Glucose 331 H (70-99) mg/dl POC Glucose (70-99) Lactate (0.4-2.0) mmol/L Calcium 9.7 (8.5-10.1) mg/dl Total Bilirubin 1.1 H (0.2-1) mg/dl AST 87 H (15-37) U/L ALT 131 H (12-78) U/L Alkaline Phosphatase 101 (45-117) U/L C-Reactive Protein (0-0.29) mg/dl Total Protein 8.1 (6.4-8.2) gm/dl Albumin 4.0 (3.4-5.0) gm/dl Globulin 4.1 H (2.5-4.0) gm/dl Albumin/Globulin Ratio 1.0 (0.9-2) Beta-Hydroxybutyric Acd 4.51 H (0.2-2.81) mg/dl Urine Color Urine Appearance (Clear) Urine pH (4.5-7.5) Ur Specific Dixon (1.000-1.030) Urine Protein (Negative) Urine Glucose (UA) (Negative) Urine Ketones (Negative) Urine Blood (Negative) Urine Nitrite (Negative) Urine Bilirubin (Negative) Urine Urobilinogen (Negative) Ur Leukocyte Esterase (Negative) Urine WBC (Auto) (0-5) /hpf Urine RBC (Auto) (0-4) /hpf U Hyaline Cast (Auto) (0-5) /lpf U Epithel Cells (Auto) (0-5) /lpf Urine Bacteria (Auto) (Negative) Nasal Screen MRSA (PCR) (Negative) 08/24/18 08/24/18 08/24/18 Range/Units 04:30 04:40 07:43 WBC (4.8-10.8) K/uL RBC (4.7-6.1) M/uL Hgb (14.0-18.0) g/dL Hct (42-52) % MCV (80-100) fL MCH (25-34) pg MCHC (32-36) g/dL RDW Std Deviation (36.4-46.3) fL RDW Coeff of Zeus (11.5-14.5) % Plt Count (130-400) K/uL MPV (7.4-10.4) fL Immature Gran % (Auto) % Neut % (Auto) % Lymph % (Auto) % [place] % (Auto) % Eos % (Auto) % Baso % (Auto) % Immature Gran # (Auto) (0.00-0.02) K/uL Neut # (Auto) (1.4-6.5) K/uL Lymph # (Auto) (1.2-3.4) K/uL [place] # (Auto) (0.11-0.59) K/uL Eos # (Auto) (0-0.5) K/uL Baso # (Auto) (0-0.2) K/uL Platelet Estimate (Normal) ESR (0-14) mm/hr PT (9.0-12.0) Seconds INR (0.9-1.1) APTT (21.0-31.0) Seconds PTT Ratio Sodium (136-145) mmol/L Potassium (3.5-5.1) mmol/L Chloride (98-107) mmol/L Carbon Dioxide (21-32) mmol/L Anion Gap (3-11) BUN (7-18) mg/dl Creatinine (0.6-1.4) mg/dl Est Cr Clr Drug Dosing Est GFR ( Amer) Est GFR (Non-Af Amer) BUN/Creatinine Ratio (10-20) Glucose (70-99) mg/dl POC Glucose 313 H (70-99) Lactate 4.1 H* (0.4-2.0) mmol/L Calcium (8.5-10.1) mg/dl Total Bilirubin (0.2-1) mg/dl AST (15-37) U/L ALT (12-78) U/L Alkaline Phosphatase (45-117) U/L C-Reactive Protein (0-0.29) mg/dl Total Protein (6.4-8.2) gm/dl Albumin (3.4-5.0) gm/dl Globulin (2.5-4.0) gm/dl Albumin/Globulin Ratio (0.9-2) Beta-Hydroxybutyric Acd (0.2-2.81) mg/dl Urine Color Yellow Urine Appearance Cloudy H (Clear) Urine pH 6.0 (4.5-7.5) Ur Specific Dixon 1.029 (1.000-1.030) Urine Protein Negative (Negative) Urine Glucose (UA) 3+ H (Negative) Urine Ketones Negative (Negative) Urine Blood 3+ H (Negative) Urine Nitrite Negative (Negative) Urine Bilirubin Negative (Negative) Urine Urobilinogen Negative (Negative) Ur Leukocyte Esterase 1+ H (Negative) Urine WBC (Auto) >30 H (0-5) /hpf Urine RBC (Auto) >30 H (0-4) /hpf U Hyaline Cast (Auto) 0 (0-5) /lpf U Epithel Cells (Auto) 5-10 H (0-5) /lpf Urine Bacteria (Auto) 4+ H (Negative) Nasal Screen MRSA (PCR) (Negative) 08/24/18 08/24/18 08/24/18 Range/Units 08:44 08:44 08:44 WBC (4.8-10.8) K/uL RBC (4.7-6.1) M/uL Hgb (14.0-18.0) g/dL Hct (42-52) % MCV (80-100) fL MCH (25-34) pg MCHC (32-36) g/dL RDW Std Deviation (36.4-46.3) fL RDW Coeff of Zeus (11.5-14.5) % Plt Count (130-400) K/uL MPV (7.4-10.4) fL Immature Gran % (Auto) % Neut % (Auto) % Lymph % (Auto) % [place] % (Auto) % Eos % (Auto) % Baso % (Auto) % Immature Gran # (Auto) (0.00-0.02) K/uL Neut # (Auto) (1.4-6.5) K/uL Lymph # (Auto) (1.2-3.4) K/uL [place] # (Auto) (0.11-0.59) K/uL Eos # (Auto) (0-0.5) K/uL Baso # (Auto) (0-0.2) K/uL Platelet Estimate (Normal) ESR 3 (0-14) mm/hr PT (9.0-12.0) Seconds INR (0.9-1.1) APTT (21.0-31.0) Seconds PTT Ratio Sodium 132 L (136-145) mmol/L Potassium 3.5 (3.5-5.1) mmol/L Chloride 98 (98-107) mmol/L Carbon Dioxide 22 (21-32) mmol/L Anion Gap 13.0 H (3-11) BUN 25 H (7-18) mg/dl Creatinine 1.35 (0.6-1.4) mg/dl Est Cr Clr Drug Dosing 34.7 Est GFR ( Amer) 53.6 Est GFR (Non-Af Amer) 46.2 BUN/Creatinine Ratio 18.1 (10-20) Glucose 313 H (70-99) mg/dl POC Glucose (70-99) Lactate (0.4-2.0) mmol/L Calcium 8.9 (8.5-10.1) mg/dl Total Bilirubin (0.2-1) mg/dl AST (15-37) U/L ALT (12-78) U/L Alkaline Phosphatase (45-117) U/L C-Reactive Protein < 0.29 (0-0.29) mg/dl Total Protein (6.4-8.2) gm/dl Albumin (3.4-5.0) gm/dl Globulin (2.5-4.0) gm/dl Albumin/Globulin Ratio (0.9-2) Beta-Hydroxybutyric Acd TNP (0.2-2.81) mg/dl Urine Color Urine Appearance (Clear) Urine pH (4.5-7.5) Ur Specific Dixon (1.000-1.030) Urine Protein (Negative) Urine Glucose (UA) (Negative) Urine Ketones (Negative) Urine Blood (Negative) Urine Nitrite (Negative) Urine Bilirubin (Negative) Urine Urobilinogen (Negative) Ur Leukocyte Esterase (Negative) Urine WBC (Auto) (0-5) /hpf Urine RBC (Auto) (0-4) /hpf U Hyaline Cast (Auto) (0-5) /lpf U Epithel Cells (Auto) (0-5) /lpf Urine Bacteria (Auto) (Negative) Nasal Screen MRSA (PCR) (Negative) 08/24/18 08/24/18 08/24/18 Range/Units 08:49 11:28 11:43 WBC (4.8-10.8) K/uL RBC (4.7-6.1) M/uL Hgb (14.0-18.0) g/dL Hct (42-52) % MCV (80-100) fL MCH (25-34) pg MCHC (32-36) g/dL RDW Std Deviation (36.4-46.3) fL RDW Coeff of Zeus (11.5-14.5) % Plt Count (130-400) K/uL MPV (7.4-10.4) fL Immature Gran % (Auto) % Neut % (Auto) % Lymph % (Auto) % [place] % (Auto) % Eos % (Auto) % Baso % (Auto) % Immature Gran # (Auto) (0.00-0.02) K/uL Neut # (Auto) (1.4-6.5) K/uL Lymph # (Auto) (1.2-3.4) K/uL [place] # (Auto) (0.11-0.59) K/uL Eos # (Auto) (0-0.5) K/uL Baso # (Auto) (0-0.2) K/uL Platelet Estimate (Normal) ESR (0-14) mm/hr PT (9.0-12.0) Seconds INR (0.9-1.1) APTT (21.0-31.0) Seconds PTT Ratio Sodium 134 L (136-145) mmol/L Potassium 3.6 (3.5-5.1) mmol/L Chloride 101 (98-107) mmol/L Carbon Dioxide 23 (21-32) mmol/L Anion Gap 9.0 (3-11) BUN 24 H (7-18) mg/dl Creatinine 1.34 (0.6-1.4) mg/dl Est Cr Clr Drug Dosing 34.9 Est GFR ( Amer) 54.1 Est GFR (Non-Af Amer) 46.6 BUN/Creatinine Ratio 18.1 (10-20) Glucose 326 H (70-99) mg/dl POC Glucose 284 H (70-99) Lactate 2.5 H* (0.4-2.0) mmol/L Calcium 7.8 L (8.5-10.1) mg/dl Total Bilirubin 1.1 H (0.2-1) mg/dl AST 66 H (15-37) U/L ALT 92 H (12-78) U/L Alkaline Phosphatase 66 (45-117) U/L C-Reactive Protein (0-0.29) mg/dl Total Protein 5.6 L D (6.4-8.2) gm/dl Albumin 2.6 L (3.4-5.0) gm/dl Globulin 3.0 (2.5-4.0) gm/dl Albumin/Globulin Ratio 0.9 (0.9-2) Beta-Hydroxybutyric Acd TNP (0.2-2.81) mg/dl Urine Color Urine Appearance (Clear) Urine pH (4.5-7.5) Ur Specific Dixon (1.000-1.030) Urine Protein (Negative) Urine Glucose (UA) (Negative) Urine Ketones (Negative) Urine Blood (Negative) Urine Nitrite (Negative) Urine Bilirubin (Negative) Urine Urobilinogen (Negative) Ur Leukocyte Esterase (Negative) Urine WBC (Auto) (0-5) /hpf Urine RBC (Auto) (0-4) /hpf U Hyaline Cast (Auto) (0-5) /lpf U Epithel Cells (Auto) (0-5) /lpf Urine Bacteria (Auto) (Negative) Nasal Screen MRSA (PCR) (Negative) 08/24/18 08/24/18 08/24/18 Range/Units 11:43 15:44 15:53 WBC (4.8-10.8) K/uL RBC (4.7-6.1) M/uL Hgb (14.0-18.0) g/dL Hct (42-52) % MCV (80-100) fL MCH (25-34) pg MCHC (32-36) g/dL RDW Std Deviation (36.4-46.3) fL RDW Coeff of Zeus (11.5-14.5) % Plt Count (130-400) K/uL MPV (7.4-10.4) fL Immature Gran % (Auto) % Neut % (Auto) % Lymph % (Auto) % [place] % (Auto) % Eos % (Auto) % Baso % (Auto) % Immature Gran # (Auto) (0.00-0.02) K/uL Neut # (Auto) (1.4-6.5) K/uL Lymph # (Auto) (1.2-3.4) K/uL [place] # (Auto) (0.11-0.59) K/uL Eos # (Auto) (0-0.5) K/uL Baso # (Auto) (0-0.2) K/uL Platelet Estimate (Normal) ESR (0-14) mm/hr PT (9.0-12.0) Seconds INR (0.9-1.1) APTT (21.0-31.0) Seconds PTT Ratio Sodium 135 L (136-145) mmol/L Potassium 4.3 D (3.5-5.1) mmol/L Chloride 104 (98-107) mmol/L Carbon Dioxide 23 (21-32) mmol/L Anion Gap 9.0 (3-11) BUN 21 H (7-18) mg/dl Creatinine 1.26 (0.6-1.4) mg/dl Est Cr Clr Drug Dosing 37.2 Est GFR ( Amer) 58.2 Est GFR (Non-Af Amer) 50.2 BUN/Creatinine Ratio 16.8 (10-20) Glucose 227 H (70-99) mg/dl POC Glucose 191 H (70-99) Lactate 1.9 (0.4-2.0) mmol/L Calcium 8.1 L (8.5-10.1) mg/dl Total Bilirubin (0.2-1) mg/dl AST (15-37) U/L ALT (12-78) U/L Alkaline Phosphatase (45-117) U/L C-Reactive Protein (0-0.29) mg/dl Total Protein (6.4-8.2) gm/dl Albumin (3.4-5.0) gm/dl Globulin (2.5-4.0) gm/dl Albumin/Globulin Ratio (0.9-2) Beta-Hydroxybutyric Acd (0.2-2.81) mg/dl Urine Color Urine Appearance (Clear) Urine pH (4.5-7.5) Ur Specific Dixon (1.000-1.030) Urine Protein (Negative) Urine Glucose (UA) (Negative) Urine Ketones (Negative) Urine Blood (Negative) Urine Nitrite (Negative) Urine Bilirubin (Negative) Urine Urobilinogen (Negative) Ur Leukocyte Esterase (Negative) Urine WBC (Auto) (0-5) /hpf Urine RBC (Auto) (0-4) /hpf U Hyaline Cast (Auto) (0-5) /lpf U Epithel Cells (Auto) (0-5) /lpf Urine Bacteria (Auto) (Negative) Nasal Screen MRSA (PCR) (Negative) 08/24/18 08/24/18 Range/Units 16:07 20:21 WBC (4.8-10.8) K/uL RBC (4.7-6.1) M/uL Hgb (14.0-18.0) g/dL Hct (42-52) % MCV (80-100) fL MCH (25-34) pg MCHC (32-36) g/dL RDW Std Deviation (36.4-46.3) fL RDW Coeff of Zeus (11.5-14.5) % Plt Count (130-400) K/uL MPV (7.4-10.4) fL Immature Gran % (Auto) % Neut % (Auto) % Lymph % (Auto) % [place] % (Auto) % Eos % (Auto) % Baso % (Auto) % Immature Gran # (Auto) (0.00-0.02) K/uL Neut # (Auto) (1.4-6.5) K/uL Lymph # (Auto) (1.2-3.4) K/uL Carolina # (Auto) (0.11-0.59) K/uL Eos # (Auto) (0-0.5) K/uL Baso # (Auto) (0-0.2) K/uL Platelet Estimate (Normal) ESR (0-14) mm/hr PT (9.0-12.0) Seconds INR (0.9-1.1) APTT (21.0-31.0) Seconds PTT Ratio Sodium (136-145) mmol/L Potassium (3.5-5.1) mmol/L Chloride (98-107) mmol/L Carbon Dioxide (21-32) mmol/L Anion Gap (3-11) BUN (7-18) mg/dl Creatinine (0.6-1.4) mg/dl Est Cr Clr Drug Dosing Est GFR ( Amer) Est GFR (Non-Af Amer) BUN/Creatinine Ratio (10-20) Glucose (70-99) mg/dl POC Glucose 174 H (70-99) Lactate (0.4-2.0) mmol/L Calcium (8.5-10.1) mg/dl Total Bilirubin (0.2-1) mg/dl AST (15-37) U/L ALT (12-78) U/L Alkaline Phosphatase (45-117) U/L C-Reactive Protein (0-0.29) mg/dl Total Protein (6.4-8.2) gm/dl Albumin (3.4-5.0) gm/dl Globulin (2.5-4.0) gm/dl Albumin/Globulin Ratio (0.9-2) Beta-Hydroxybutyric Acd (0.2-2.81) mg/dl Urine Color Urine Appearance (Clear) Urine pH (4.5-7.5) Ur Specific Dixon (1.000-1.030) Urine Protein (Negative) Urine Glucose (UA) (Negative) Urine Ketones (Negative) Urine Blood (Negative) Urine Nitrite (Negative) Urine Bilirubin (Negative) Urine Urobilinogen (Negative) Ur Leukocyte Esterase (Negative) Urine WBC (Auto) (0-5) /hpf Urine RBC (Auto) (0-4) /hpf U Hyaline Cast (Auto) (0-5) /lpf U Epithel Cells (Auto) (0-5) /lpf Urine Bacteria (Auto) (Negative) Nasal Screen MRSA (PCR) Negative (Negative) Imaging Data Radiologist's Impression: Radiology results as stated below per my review and the radiologist's interpretation: XR chest 1V portable CLINICAL HISTORY: 88 years-old Male presenting with tachypnea. TECHNIQUE: Portable upright AP view of the chest was obtained. COMPARISON: 04/11/2017. FINDINGS: Patient is CONNOR rotated. Mildly exaggerated thoracic kyphosis suggested. Atherosclerosis of the aortic arch. Cardiac silhouette top normal in size. Mild hyperinflation. No focal opacity. No pleural effusion or pneumothorax. Degenerative changes of the thoracic spine. IMPRESSION: 1. No acute cardiopulmonary disease. Electronically signed by: Donald Varela M.D. 08/24/2018 6:37 AM Blood Pressure Blood Pressure Findings: Low blood pressure Blood Pressure Disposition: further management by hospitalist ZAHIRA Flores The patient is an 88 year old male who presents to the Emergency Room with complaints of constant and severe abdominal pain. The patient has an indwelling Noyola catheter. He has previous episodes of urinary retention and urinary. The patient does appear to have significant sediment within the Noyola catheter. This catheter was removed and replaced. A urinalysis was sent for culture. He does appear to be infected. The patient has a significantly elevated lactate concerning for sepsis. However the patient is afebrile with no significant leukocytosis. Of note, the patient has a blood sugar greater than 300 and has an elevated BHA concerning for DKA. The family states that he has no history of diabetes. This may represent new onset diabetes. The patient also has significant thrombocytopenia which seems to be a new finding for him. Viewed all these findings with the inpatient service. The patient remains hemodynamically stable and is receiving IV antibiotics for his urine and IV normal saline solution. He will be started on insulin by the inpatient service. Impression & Plan UTI (urinary tract infection), Urinary retention, DKA (diabetic ketoacidoses), Renal insufficiency, Thrombocytopenia, Diabetes mellitus, new onset Discharge Plan Visit Data *Final* Discharge Date/Time: 08/24/18 07:21 Chief Complaint: Abdominal Pain Stated Complaint: SHARP ABD PAIN ED Provider: Camille Andrade Discharge Problem: UTI (urinary tract infection), Urinary retention, DKA (diabetic ketoacidoses), Renal insufficiency, Thrombocytopenia, Diabetes mellitus, new onset Patient Disposition: Admitted As Inpatient Discharge Instructions Interventions: ED Discharge Assessment Last Done: 08/24/18 07:21 The scribe's documentation has been prepared under my direction and personally reviewed by me in its entirety. I confirm that the note above accurately reflects all work, treatment, procedures, and medical decision making performed by me.
[2018-08-24] MEDS ORDERED: INSULIN HUMAN REGULAR IV BOLUS 1.5 UNITS in SYRINGE 0 ML IV ONE (08:45)
[2018-08-24] MEDS ORDERED: INSULIN ASPART 100 UNITS/ML 3 ML PEN SC SCH (09:00)
[2018-08-24] MEDS ORDERED: PIPERACILLIN/TAZOBACTAM 3.375 GM in DEXTROSE 5% 100 ML IV ONE (09:00)
[2018-08-24] MEDS ORDERED: VANCOMYCIN HCL 1,500 MG in SODIUM CHLORIDE 0.9% 500 ML IV ONE (09:00)
[2018-08-24] MEDS ORDERED: INSULIN GLARGINE SOLOSTAR 100 UNITS/ML 3 ML PEN SC ONE (09:15)
[2018-08-24] MEDS: INSULIN ASPART 100 UNITS/ML 3 ML PEN SC SCH ×4 (09:42→20:28)
[2018-08-24 09:51] LABS: BUN Creatinine Ratio 18.1 (10-20); Blood Urea Nitrogen 25 mg/dl (7-18); Calcium 8.9 mg/dl (8.5-10.1); Carbon Dioxide 22 mmol/L (21-32); Chloride 98 mmol/L (98-107); Creatinine Clr Calc Pharmacy 34.7 ml/min; Est GFR (African American) 53.6; Est GFR (Non-African American) 46.2; Glucose 313 mg/dl (70-99); Potassium 3.5 mmol/L (3.5-5.1); Sodium 132 mmol/L (136-145)
--- NOTE | 2018-08-24 11:21 | CT Scan Report ---
CT abd pelvis wo con CLINICAL HISTORY: 88 years-old Male presenting with ABDOMINAL PAIN. TECHNIQUE: Multidetector CT of the abdomen and pelvis was performed without the use of intravenous co ntrast. IV contrast: None. A dose lowering technique was used consistent with the principles of ALARA (as low as reasonably achievable). COMPARISON: 10/16/2016. CT DOSE (mGy.cm): The estimated cumulative dose is 631.64 mGy.cm. FINDINGS: First Line Production Supervisor topogram: Blunting of the right costophrenic angle. Lung bases: Solid multilobular peripheral nodule in the lateral basal right lower lobe (series 3 imag e 1). This is only partially visualized, either new from prior or not included within the previous fi eld-of-view. Dependent ground glass opacity and subpleural consolidation in the lower lobes, right gr eater than left. Respiratory motion artifact at the lung bases degrades evaluation. Normal heart size . Coronary artery, aortic valve, and mitral annular calcification. No pericardial or pleural effusion . Liver: Macronodular contour of the liver with relative hypertrophy of the left hepatic lobe and atrop hy of the right hepatic lobe suggesting cirrhosis. Density consistent with hepatic steatosis. Biliary: No gross biliary ductal dilatation allowing for noncontrast technique. Focal thickening of t he gallbladder fundus may indicate a phrygian cap or adenomyomatosis. Pancreas: Moderate parenchymal atrophy. Spleen: Normal noncontrast appearance. Adrenal glands: Normal noncontrast appearance. Kidneys and ureters: Well-defined hypodensity in the left kidney likely cyst. No nephrolithiasis. No hydronephrosis. Normal ureters. Bladder: Decompressed with a Noyola catheter. Allowing for this, suggestion of circumferential wall th ickening. Pelvic organs: Prostate enlargement likely secondary to benign prostatic hyperplasia. Bowel: The mesentery of the cecum appears somewhat twisted though there is no resulting obstruction. This may be due to adhesions in this region, possibly from prior appendectomy. No bowel obstruction. Peritoneal cavity: No free fluid or intraperitoneal gas. Lymph nodes: No gross lymphadenopathy allowing for noncontrast technique. Vasculature: Atherosclerosis of the normal caliber abdominal aorta. Abdominal wall: Fat-containing left inguinal hernia. Gynecomastia. Musculoskeletal: Severe endplate irregularity and sclerosis at L2-3 with mild height loss of the L2 a nd L3 vertebral bodies. Osteopenia. IMPRESSION: 1. Allowing for noncontrast technique, no acute intra-abdominal pathology. 2. Findings suggest cirrhosis with hepatic steatosis. 3. 12 mm solid right lower lobe pulmonary nodule either new from prior or not included within the pr evious [id number]. Nonurgent dedicated chest CT to be considered as a neoplastic process cannot be excluded. 4. Findings suggest chronic bladder outlet obstruction secondary to prostatomegaly. 5. Focal severe degenerative changes at L2-3. Alternatively, this may suggest prior infection or inf lammatory arthropathy. Electronically signed by: Donald Varela M.D. 08/24/2018 11:19 AM
[2018-08-24] MEDS: SODIUM CHLORIDE 0.9% 1000ML 1,000 ML IV SCH ×2 (11:30→17:26)
--- NOTE | 2018-08-24 11:39 | Hospitalist Progress Note ---
Date of Service August 24, 2018 Subjective Patient seen and examined at bedside earlier with daughter as bleach range operator Patient denies feeling fevers or changes in mental status. Reports abdominal discomfort (reports abdominal pain of upper and lower abdomen) . Noyola is functional. denies vomiting. denies chest pain or shortness of breath Patient had 1000 ml of fluids given in the ED when lactic acid 4.1 Lactic acid downtrended to 2.5 and about finished with second 1000 of fluids received subcutaneous insulin of Lantus 10 units and Novolog 7 units with glucose downtrending will continue to follow anion gap while on subcutaenous insulin. will consider insulin drip if anion gap widens last checked serum potassium is 3.5, will give IV potassium 10 meq x bags in case an insulin drip is needed continuing empiric antibiotics or zosyn and vancomycin Physical Exam 2 Vital Signs (Past 24 Hours): Last Vital Signs Temp 36.3 C L 08/24/18 07:46 Pulse 72 08/24/18 07:46 Resp 19 08/24/18 07:46 BP 164/82 H 08/24/18 07:46 Pulse Ox 99 08/24/18 07:46 Constitutional: WD/WN, vitals as above Eyes: PERRL, conjunctivae normal, anicteric sclerae EOM intact bilaterally Neck: trachea midline, no thyromegaly Respiratory: normal respiratory effort, lungs clear to auscultation Cardiovascular: RRR, no murmur, no edema Gastrointestinal (Abdomen): Inspection/Auscultation: abdomen normal to inspection Percussion/Palpation: + abdomen tender (reports abdominal pain of upper and lower abdomen) and abdomen soft Neurologic: PERRL, EOMI, accommodation nl, no face palsy, no dysarthria CN' s II-XI intact bilaterally Psychiatric: A+Ox3, euthymic affect
--- NOTE | 2018-08-24 11:57 | Pharmacy Report ---
Glycemic Control Consultation - Date of Service August 24, 2018 - Scope Scope: Glycemic Pharmacist consulted by Dr Cabral on 08/24 for glycemic control and to write orders per [facility] inpatient glycemic control protocol - Objective Weight: 69 kg Accuchecks BSG (last 24hrs): 08/24/18 08/24/18 08/24/18 04:30 07:43 08:44 Glucose 331 H 313 H POC Glucose 313 H Laboratory Data (last 24hrs): 08/24/18 08/24/18 04:30 08:44 Potassium 3.9 3.5 Carbon Dioxide 25 22 Anion Gap 11.0 13.0 H Creatinine 1.63 H 1.35 Est Cr Clr Drug Dosing Not Reportable 34.7 Beta-Hydroxybutyric Acd 4.51 H TNP - Recent Pertinent Medications Outpatient Anti-diabetic Regimen: * n/a, history of pre-diabetes based on last A1c * A1c = 5.9 % 10/17/16 Risk Factors for Insulin Resistance: * Infection: on vanc/Zosyn for possible urinary source of infection * Diet: type 2 diabetes - Assessment & Plan Assessment & Plan: ASSESSMENT: * 88 y/o male admitted for abdominal pain and urinary retention. Hyperglycemic (331 mg/dL) on admission, with beta-hydroxybutyric acid slightly elevated, anion gap at upper end of range. Initial plan per consulting provider was to initiate an insulin drip for DKA but Dr. Miranda would like to manage with SQ insulin since labs were just borderline. Most recent AG and bicarb are WNL. * Basal/bolus insulin has been initiated per SQ insulin dose calculator estimates using wt and stress level of 2. BSGs starting to trend down at this point but insulins just given ~10 am. Will provide a scaled Lantus dose from tonight forward. Will also add overnight checks to assist with BSG control. PLAN FOR INPATIENT GLYCEMIC CONTROL: * Basal insulin * Lantus 10 units x 1 this AM, then: * Lantus BID per the following scale: * 5 units for BSG < 180 (~0.2 units/kg total) * 10 units for BSG 180 or above (~0.28 units/kg total) * Bolus insulin * NovoLog per scale ACHS or Q6hrs while NPO, add two overnight accuchecks * Goal Range: Low 110 mg/dL - High 150 mg/dL * Correction Factor: 35 mg/dL/unit * Nutritional / Prandial insulin per carb ratio of 1 unit per 10 grams CHO consumed * A1c currently pending - this will help to guide outpatient recommendations * Please note that the plan above was derived based on current level of insulin resistance and hospital stress. These recommendations are appropriate for inpatient admission only. Plan of care upon discharge will need to be reassessed to avoid potential outpatient hypo/hyperglycemia. Thank you.
[2018-08-24] MEDS: FINASTERIDE 5 MG TAB PO SCH (12:00)
[2018-08-24] MEDS: ASPIRIN 81 MG ECTAB PO SCH (12:00)
[2018-08-24] MEDS: METOPROLOL SUCC 50MG EXT REL TAB PO SCH (12:00)
[2018-08-24 12:12] LABS: Albumin Level 2.6 gm/dl (3.4-5.0); Aspartate Aminotransferase 66 U/L (15-37); BUN Creatinine Ratio 18.1 (10-20); Blood Urea Nitrogen 24 mg/dl (7-18); Calcium 7.8 mg/dl (8.5-10.1); Carbon Dioxide 23 mmol/L (21-32); Chloride 101 mmol/L (98-107); Creatinine Clr Calc Pharmacy 34.9 ml/min; Est GFR (African American) 54.1; Est GFR (Non-African American) 46.6; Glucose 326 mg/dl (70-99); Potassium 3.6 mmol/L (3.5-5.1); Sodium 134 mmol/L (136-145)
[2018-08-24 12:18] LABS: Alanine Aminotransferase 92 U/L (12-78); Albumin Globulin Ratio 0.9 (0.9-2); Bilirubin,Total 1.1 mg/dl (0.2-1); Total Protein 5.6 gm/dl (6.4-8.2)
[2018-08-24 12:33] LABS: Alkaline Phosphatase 66 U/L (45-117)
[2018-08-24] MEDS: HEPARIN SOD 5,000 UNIT/0.5 ML VIAL SQ SCH ×2 (12:48→20:23)
[2018-08-24] MEDS: POTASSIUM CHLORIDE / WTR 10 MEQ/100 ML PLCT IV SCH ×3 (13:06→16:23)
[2018-08-24] MEDS: PIPERACILLIN/TAZOBACTAM 3.375 GM in DEXTROSE 5% 100 ML IV SCH ×2 (14:08→21:31)
[2018-08-24 16:15] LABS: BUN Creatinine Ratio 16.8 (10-20); Calcium 8.1 mg/dl (8.5-10.1); Creatinine Clr Calc Pharmacy 37.2 ml/min; Est GFR (African American) 58.2; Est GFR (Non-African American) 50.2; Potassium 4.3 mmol/L (3.5-5.1)
--- NOTE | 2018-08-24 16:28 | Pharmacy Report ---
Pharmacy Abx Initial Consult - Date of Service August 24, 2018 - Pharmacy Dosing Scope Date of Consult: 08/24/18 Consultation requested by: Dr. Cabral Pharmacy is consulted to initiate Zosyn and Vancomycin IV dosing therapy, order appropriate labs and adjust drug dose/frequency. - Subjective The patient is a 88 year old M admitted on 08/24/18 06:56. - Objective Height: 5 ft 7 in Weight: 69 kg Vital Signs (Past 12hrs): Vital Signs Temp Pulse Resp BP Pulse Ox 08/24/18 15:08 36.3 C L 73 16 101/61 96 08/24/18 12:02 36.4 C L 75 18 127/77 92 08/24/18 07:46 36.3 C L 72 19 164/82 H 99 08/24/18 07:00 80 20 97/87 L 99 08/24/18 05:36 74 20 133/85 99 Lab Results (24hrs): Laboratory Tests (24 Hours) 08/24/18 08/24/18 08/24/18 15:44 11:43 08:44 WBC Neut # (Auto) ESR Creatinine 1.26 1.34 Est Cr Clr Drug Dosing 37.2 34.9 C-Reactive Protein < 0.29 08/24/18 08/24/18 08/24/18 08:44 08:44 04:30 WBC Neut # (Auto) ESR 3 Creatinine 1.35 1.63 H Est Cr Clr Drug Dosing 34.7 Not Reportable C-Reactive Protein 08/24/18 04:30 WBC 8.91 Neut # (Auto) 4.05 ESR Creatinine Est Cr Clr Drug Dosing C-Reactive Protein Micro Results: 08/24/18 04:30 Urine Culture - Pending Urine,Straight Cath 08/24/18 04:40 Blood Culture - Pending Blood 08/24/18 04:30 Blood Culture - Pending Blood - Assessment & Plan Assessment 88 year old M presenting to the ED with severe abdominal pain, and has a burning feeling in his chest and back. Patient has had many urinary infections- has been using a catheter for the last 2 years. Urine and blood cultures x 2 currently pending. Plan Vancomycin and Zosyn for treatment of UTI Vancomycin IV * Estimated PK Parameters: Vd 0.7 L/kg, Andrea 0.028 hr-1, t1/2 25 hr * Loading dose: 1500 mg (2 mg/kg) * Maintenance dose: 1000 mg IV (14.5 mg/kg) every 26 hours * Goal trough level for UTI : ~15mcg/mL Piperacillin/tazobactam * 3.375 g bolus administered over 30 minutes, then 3.375 g IV extended infusion every 8 hours for CrCl greater than 20 mL/min Pharmacy will continue to follow and will adjust dose/frequency as necessary. Thank you.
--- NOTE | 2018-08-24 16:39 | Urology Consultation ---
Date of Consultation August 24, 2018 Assessment & Plan (1) Urinary retention: Patient has catheter in place and draining bladder with good output and no hematuria. Difficult to determine full series of events, but appears to have chronic retention and emptying issues for a long standing period with recent worsening of issues. Family not readily available today or at bed side to discuss these issues, However appear to be stable, and haas has good output without concerns which relieves the obstruction. Recommend maintaining for now, will need to plan for haas in place to decompress bladder for period of time prior to removal. Monitor for now and await further information (2) Renal insufficiency: History of Present Illness Attending Physician: Flip Miranda MD History of Present Illness Patient with urinary obstruction issues and UTI with advanced age and chronic outlet obstruction Patient is non-vietnamese speaking and unable to answer any significant question other than simple questions. Is resting comfortable. Prefers to wait until family is around to discuss issues. Patient agrees this is along time issues with emptying. Tolerating catheter without major discomfort. Otherwise remainder of information severely limited due to language issues and majority of information from charting and prior records. Allergies Allergy/AdvReac Type Severity Reaction Status Date / Time No Known Allergies Allergy Verified 08/24/18 06:08 Home Medications Home Medications Medication Instructions Recorded Confirmed Type aspirin 81 mg PO DAILY 06/17/18 08/24/18 History finasteride 5 mg PO DAILY 06/17/18 08/24/18 History furosemide 20 mg PO Q OTHER DAY 06/17/18 08/24/18 History methenamine hippurate 1 g PO QPM 06/17/18 08/24/18 History potassium chloride 8 meq PO Q OTHER DAY 06/17/18 08/24/18 History metoprolol succinate 50 mg PO DAILY 08/24/18 08/24/18 History Patient History Medical History BPH (benign prostatic hyperplasia) (Chronic) PAF (paroxysmal atrial fibrillation) (Chronic) Diastolic CHF (Chronic) Urinary retention (Chronic) History of osteomyelitis (Resolved) "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 Limited due to language barrier. Physical Exam 2 Vital Signs (Past 24 Hours): Last Vital Signs Temp 36.3 C L 08/24/18 15:08 Pulse 73 08/24/18 15:08 Resp 16 08/24/18 15:08 BP 101/61 08/24/18 15:08 Pulse Ox 96 08/24/18 15:08 Constitutional: WD/WN, vitals as above Eyes: PERRL, conjunctivae normal, anicteric sclerae Neck: trachea midline, no thyromegaly Respiratory: normal respiratory effort Cardiovascular: Rate/Rhythm: not tachycardic Gastrointestinal (Abdomen): Inspection/Auscultation: abdomen normal to inspection Percussion/Palpation: + abdomen tender (reports abdominal pain of upper and lower abdomen) and abdomen soft Neurologic: CN's II-XI intact bilaterally Psychiatric: Orientation: alert and oriented to person Able to answer simple yes/no questions. Limited due to language barrier. [place] Island[place] is not primary language. Genitourinary: Haas in place draining clear yellow urine.
[2018-08-24] MEDS ORDERED: DOCUSATE SODIUM/SENNA 50/8.6MG TAB PO PRN (20:22)
[2018-08-24] MEDS: INSULIN GLARGINE SOLOSTAR 100 UNITS/ML 3 ML PEN SC SCH (20:27)
[2018-08-24] MEDS ORDERED: METHENAMINE HIPPURATE 1 GM TAB PO SCH (21:00)
[2018-08-25] MEDS: INSULIN ASPART 100 UNITS/ML 3 ML PEN SC SCH ×6 (00:20→21:04)
--- NOTE | 2018-08-25 00:27 | History and Physical Report ---
DATE OF ADMISSION: 08/24/2018 CHIEF COMPLAINT: Urinary retention and found to have new-onset diabetes and UTI. HISTORY OF PRESENT ILLNESS: This is an 88-year-old male who is a [place] who does not speak Guamanian. Daughter is the one who helps with the history. 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 Was brought in by daughter because his Noyola catheter got obstructed. It has happened in the past too and the patient was in May 2018 with the some problem and Noyola was placed and UTI, looks infected, but he was discharged on Levaquin. But today again the Noyola was replaced and was draining fine but labs came back showing UTI and also sugars were 330 and lactic acid was 4.1. Beta hydroxybutyric acid was elevated, so we are called for possible DKA and UTI. The patient complains of severe pain on the chest, abdomen, all over his body, feeling weak and tired, worn out. The patient is afebrile. No headaches. Appetite is okay. He is eating okay. No recent weight gain or weight loss. No nausea, no vomiting. Currently, resting comfortable and hemodynamically stable.Patient lives with his and daughter helps them. He was on hospice care in the past but no longer now. ALLERGIES: No known drug allergies. PAST MEDICAL HISTORY: As mentioned above. PAST SURGICAL HISTORY: None. MEDICATIONS: The patient is currently on Lasix 20 mg every other day, Toprol-XL 50 mg p.o. daily, potassium chloride 8 mEq p.o. daily, Proscar 5 mg p.o. daily, methenamine hippurate 1 gram every evening per urology, aspirin 81 mg p.o. daily, Avodart 0.5 mg p.o. daily, nitroglycerin 0.4 mg sublingual p.r.n., MiraLax 17 grams p.o. daily p.r.n., Senokot-S 2 tablets p.o. at bedtime p.r.n. FAMILY HISTORY: No family history on file. SOCIAL HISTORY: Lives with his . Daughter helps them. No smoking history. No alcohol, no drug use. REVIEW OF SYMPTOMS: As per HPI. Rest of the review of symptoms negative. PHYSICAL EXAMINATION: GENERAL: The patient is alert and oriented. Not in acute distress. VITAL SIGNS: Temperature 36.6, pulse 61, respiratory rate 18, blood pressure 133/85, oxygen 100%. HEENT: No pallor, no icterus. Pupils equal, round, and reactive to light. NECK: No JVD, no neck masses, no carotid bruits. CARDIOVASCULAR: S1, S2, regular rate and rhythm, no murmur, no gallop. RESPIRATORY SYSTEM: Normal AP diameter, no accessory muscle use. No wheezing, no crackles. ABDOMEN: Soft, bowel sounds present. Nontender. No distention. CENTRAL NERVOUS SYSTEM: Nonfocal. EXTREMITIES: No edema, no erythema. LABORATORY DATA: WBC 8.9, hemoglobin 18.1, hematocrit 50.5, platelets 90. ESR 3, PT 11, INR 1.1, APTT 23.6. Sodium was 134, potassium 3.9, chloride 95, CO2 of 25, anion gap 11, BUN 25, creatinine 1.6, serum glucose 331, calcium 9.7, total bilirubin 1.1, AST 87, ALT 131, alkaline phosphatase 101. Urinalysis positive for leukocyte esterase. IMAGING DATA: Chest x-ray, no acute cardiopulmonary disease. EKG: Normal sinus rhythm with sinus arrhythmia, prolonged QT. ASSESSMENT AND PLAN: This is an 88-year-old male who presents with urinary retention, found to have urinary tract infection, new-onset diabetes, possible early diabetic ketoacidosis with high blood sugars and lactic acidosis and elevated beta hydroxybutyric acid. 1. Urinary retention, urinary tract infection, possible sepsis with lactic acid of 4.1, hemodynamically stable. No elevation in white count. The patient has history of recurrent UTIs. Follows with urology, on methenamine hippurate 1 gram daily[address] We will place empirically on IV vancomycin and Zosyn and follow urine cultures and blood cultures and consult urology for the recurrent infections and follow the repeat lactic acid. 2. New-onset diabetes, possible early diabetic ketoacidosis with blood sugars in 330s and lactic acid 4.1. Beta hydroxybutyric acid was 4.5, but his bicarbonate was normal. We will empirically start him on DKA protocol with IV insulin drip and IV fluids as per protocol. Consult pharmacy and consult dietitian, diabetic education, and also follow HbA1c levels and follow sugars closely. Patient complained of chronic abdominal pain, pain all over the body. Because of his ongoing urinary retention, we will also get a CT of the abdomen and pelvis to rule out any underlying causes. 3. History of diastolic congestive heart failure. On Lasix every other day, currently getting fluids. We will monitor for any volume overload. 4. History of atrial fibrillation, not on any anticoagulation any longer, on metoprolol succinate, which he will continue with holding parameters. 5. History of benign prostatic hypertrophy, on chronic Noyola, on Proscar and Avodart. Follows with urology. 6. Hypertension. Toprol-XL, will monitor. 7. Chronic thrombocytopenia. Will follow the labs. 8. History of osteomyelitis, history of syringomyelia. 9. History of liver cirrhosis. Monitor for any volume overload. 10. Deep venous thrombosis prophylaxis, heparin subQ. 11. Disposition: Admit to tele floor. Expect to discharge home and follow with his family doctor. Code status, full code if there is chance of recovery. MTDD
[2018-08-25] MEDS: SODIUM CHLORIDE 0.9% 1000ML 1,000 ML IV SCH (03:55)
[2018-08-25] MEDS: PIPERACILLIN/TAZOBACTAM 3.375 GM in DEXTROSE 5% 100 ML IV SCH ×3 (05:22→21:03)
[2018-08-25 05:48] LABS: Estimated Average Glucose 246 mg/dl; Hemoglobin A1C 10.2 % (4.5-5.6)
[2018-08-25 07:17] LABS: Hematocrit (blood only) 40.7 % (42-52); Hemoglobin 14.2 g/dL (14.0-18.0); Mean Corpuscular Hgb Conc 34.9 g/dL (32-36); Mean Corpuscular Volume 86.2 fL (80-100); Mean Platelet Volume 11.7 fL (7.4-10.4); Platelet Count 61 K/uL (130-400); RDW Coefficient of Variation 14.2 % (11.5-14.5); RDW Standard Deviation 44.8 fL (36.4-46.3); Red Blood Count 4.72 M/uL (4.7-6.1)
[2018-08-25 07:40] LABS: Albumin Level 2.7 gm/dl (3.4-5.0); BUN Creatinine Ratio 14.9 (10-20); Calcium 8.5 mg/dl (8.5-10.1); Creatinine Clr Calc Pharmacy 37.2 ml/min; Est GFR (African American) 58.2; Est GFR (Non-African American) 50.2; Potassium 3.7 mmol/L (3.5-5.1)
[2018-08-25 07:43] LABS: Albumin Globulin Ratio 0.9 (0.9-2); Total Protein 5.7 gm/dl (6.4-8.2)
[2018-08-25 07:45] LABS: ALC (manual) 2.78 K/uL (1.2-3.4); Eosinophils # (manual) 0.31 K/uL (0-0.5); Eosinophils % (manual) 4.5 %; Lymphocytes # (manual) 1.48 K/uL (1.2-3.4); Lymphocytes % (manual) 21.8 %; Monocytes # (manual) 0.37 K/uL (0.11-0.59); Monocytes % (manual) 5.5 %; Neutrophils % (manual) 49.1 %
[2018-08-25] MEDS: FINASTERIDE 5 MG TAB PO SCH (08:01)
[2018-08-25] MEDS: METOPROLOL SUCC 50MG EXT REL TAB PO SCH (08:01)
[2018-08-25] MEDS: ASPIRIN 81 MG ECTAB PO SCH (08:01)
[2018-08-25] MEDS: HEPARIN SOD 5,000 UNIT/0.5 ML VIAL SQ SCH ×2 (08:02→21:04)
[2018-08-25] MEDS: INSULIN GLARGINE SOLOSTAR 100 UNITS/ML 3 ML PEN SC SCH ×2 (08:07→21:04)
--- NOTE | 2018-08-25 12:12 | Urology Progress Note ---
Date of Service August 25, 2018 Assessment & Plan (1) Urinary retention: 88yo M with hx LARSON, multiple UTIs, indwelling catheter Maintain haas catheter - draining clear yellow - has not required irrigation per RN Continue finesteride. UC&S final with contamination. - Okay to hold methenamine while taking short term antibiotics. - Recommend abx treatment for 7-10days Will arrange outpatient follow-up with Dr. Blanca (established with him) in 2-3 weeks. No family members at bedside at time of evaluation. If they have any questions for our service, please feel free to page us and we can speak to them directly. Subjective 88yo M with long hx of urinary obstruction issues, UTIs. Indwelling catheter x2 years. Established with Dr. Blanca, non-yakut speaking. Pt sleeping at time of evaluation. No family members at bedside. Discussed patient status with RNLarry. No issues overnight. Tolerating PO. Catheter draining well, patient denies any pain or issues to nursing. Has not required any further bladder irrigation. Remains afebrile, hemodynamically stable. Review of Systems All systems reviewed & are unremarkable except as noted in HPI & below Physical Exam 2 Vital Signs (Past 24 Hours): Last Vital Signs Temp 36.3 C L 08/25/18 07:30 Pulse 66 08/25/18 07:30 Resp 16 08/25/18 07:30 BP 124/74 08/25/18 07:30 Pulse Ox 95 08/25/18 07:30 Physical Exam: Resting comfortably Haas catheter draining clear, yellow RRR Results & Data Laboratory Results Laboratory Tests 08/25/18 08/25/18 06:59 06:59 WBC 6.80 Hgb 14.2 D Hct 40.7 L BUN 19 H Creatinine 1.26
--- NOTE | 2018-08-25 15:04 | Pharmacy Report ---
PHA: Glycemic Control AP - Date of Service August 25, 2018 - Assessment & Plan The patient is new onset diabetic (A1C 10.2) receiving 32 units of insulin yesterday. BSGs ranging 110 - 284 mg/dl over the past 24hrs. Fasting BSG much improved this morning. Will therefore, decrease basal insulin accordingly. Carb coverage was also slightly loosened. * Basal insulin: Lantus units every 5 units this morning; lantus per scale this evening (5 or 8 units based on BSG) * Correctional Insulin: Novolog Correction per scale ACHS Goal Range: Low 110 mg/dL - High 150 mg/dL Correction Factor: 35 mg/dL/unit * Prandial insulin: Per carb ratio of 1 unit per 12 grams CHO consumed Pharmacy will continue to monitor patient daily and write orders per [facility] inpatient glycemic control protocol. Thanks. * Please note that the plan above was derived based on current level of insulin resistance and hospital stress. These recommendations are appropriate for inpatient admission only. Plan of care upon discharge will need to be reassessed to avoid potential outpatient hypo/hyperglycemia.
[2018-08-25 16:05] LABS: Appearance Urine Clear (Clear); Bacteria Urine Automated Negative (Negative); Bilirubin Urine Negative (Negative); Blood Urine Negative (Negative); Color Urine Yellow; Epithelial Cell Urine Auto 20-30 /lpf (0-5); Glucose Urine UA 2+ (Negative); Ketones Urine Negative (Negative); Leukocyte Esterase Urine 2+ (Negative); Nitrite Urine Negative (Negative); Protein Urine Negative (Negative); RBC Urine Automated 0-4 /hpf (0-4); Specific Gravity Urine 1.017 (1.000-1.030); Urobilinogen Urine Negative (Negative)
--- NOTE | 2018-08-25 19:07 | Hospitalist Progress Note ---
Date of Service August 25, 2018 Assessment & Plan (1) DKA (diabetic ketoacidoses): This is an 88-year-old male who presents with urinary retention, found to have urinary tract infection, new-onset diabetes, possible early diabetic ketoacidosis with high blood sugars and lactic acidosis and elevated beta hydroxybutyric acid. mild Diabetic ketoacidosis on admission -on admission day, Patient had 1000 ml of fluids given in the ED when lactic acid 4.1, Lactic acid downtrended to 2.5 and about finished with second 1000 of fluids, and then resolved at 1.9 -anion gap had closed and hyperglycemia resolving with only subcutaneous insulin -HbA1c 10 -silviculture teacher has demonstrated to patient's daughter on how to give insulin -patient likely will need insulin basal dosing when medically ready to be discharged possible urinary tract infection -initially on Zosyn and Vancomycin, with only Zosyn continued for now -admission urine culture: Three types of organisms present, all high counts -repeat UA ordered -admission blood culture pending results Chronic Urinary retention -clogged haas was changed in the ED -continue haas -outpatient [facility] urology follow up needed -continue finasteride Pulmonary nodule CT abdomen on 08/24/18 12 mm solid right lower lobe pulmonary nodule either new from prior or not included within the previous [id number]. 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 History of liver cirrhosis Deep venous thrombosis prophylaxis, heparin subc Code Status: as per discussion with patient and daughters Margareth [phone] and Danitza [phone], code status is DO NOT INTUBATE but allows for chest compression or defibrillation Subjective Patient seen and examined with hardwood sawyer service and his daughter patient denies shortness of breath. denies chest pain. denies palpitations. denies abdominal pain. denies pain with haas. denies vomiting Physical Exam 2 Vital Signs (Past 24 Hours): Last Vital Signs Temp 36.4 C L 08/25/18 15:10 Pulse 58 L 08/25/18 15:10 Resp 20 08/25/18 15:10 BP 127/76 08/25/18 15:10 Pulse Ox 94 08/25/18 15:10 Constitutional: WD/WN, vitals as above Eyes: PERRL, conjunctivae normal, anicteric sclerae EOM intact bilaterally Neck: trachea midline, no thyromegaly Respiratory: normal respiratory effort, lungs clear to auscultation Cardiovascular: RRR, no murmur, no edema Gastrointestinal (Abdomen): Inspection/Auscultation: abdomen normal to inspection Percussion/Palpation: abdomen soft Neurologic: PERRL, EOMI, accommodation nl, no face palsy, no dysarthria CN' s II-XI intact bilaterally Psychiatric: A+Ox3, euthymic affect _ (1) DKA (diabetic ketoacidoses) Diabetes mellitus complication detail: without coma Diabetes mellitus type: other specified (including DALIA) Qualified Code(s): E13.10 - Other specified diabetes mellitus with ketoacidosis without coma
[2018-08-25] MEDS ORDERED: FUROSEMIDE 20 MG TAB PO SCH (20:00)
[2018-08-26] MEDS: PIPERACILLIN/TAZOBACTAM 3.375 GM in DEXTROSE 5% 100 ML IV SCH (06:14)
[2018-08-26] MEDS: HEPARIN SOD 5,000 UNIT/0.5 ML VIAL SQ SCH (07:47)
[2018-08-26] MEDS: FINASTERIDE 5 MG TAB PO SCH (07:47)
[2018-08-26] MEDS: METOPROLOL SUCC 50MG EXT REL TAB PO SCH (07:47)
[2018-08-26] MEDS: ASPIRIN 81 MG ECTAB PO SCH (07:47)
[2018-08-26] MEDS: INSULIN GLARGINE SOLOSTAR 100 UNITS/ML 3 ML PEN SC SCH (07:51)
[2018-08-26] MEDS: INSULIN ASPART 100 UNITS/ML 3 ML PEN SC SCH ×2 (07:53→12:26)
[2018-08-26] MEDS ORDERED: INSULIN GLARGINE SOLOSTAR 100 UNITS/ML 3 ML PEN SC ONE (08:30)
[2018-08-26] MEDS ORDERED: INSULIN GLARGINE SOLOSTAR 100 UNITS/ML 3 ML PEN SC SCH (10:36)
--- NOTE | 2018-08-26 14:35 | Hospitalist Progress Note ---
Date of Service August 26, 2018 Assessment & Plan (1) DKA (diabetic ketoacidoses): This is an 88-year-old male who presents with urinary retention, found to have urinary tract infection, new-onset diabetes, possible early diabetic ketoacidosis with high blood sugars and lactic acidosis and elevated beta hydroxybutyric acid. mild Diabetic ketoacidosis on admission -on admission day, Patient had 1000 ml of fluids given in the ED when lactic acid 4.1, Lactic acid downtrended to 2.5 and about finished with second 1000 of fluids, and then resolved at 1.9 -anion gap had closed and hyperglycemia resolving with only subcutaneous insulin -HbA1c 10 Patient to be discharged to be on Lantus 10 units daily Prescriptions made for pen needles for use of giving the. Prescription made for One Touch Verio test strips and patient family was given glucose meter by clinical trial educator nurse Prescriptions made for lancets to check the glucose from blood from the finger possible urinary tract infection -initially on Zosyn and Vancomycin, with only Zosyn continued up to 08/26/17 and switch to oral cefuroxime as admission urine culture: Three types of organisms present, all high counts and admission blood culture with no growth to date -Take oral antibiotic cefuroxime 250 mg twice a day for 5 more days Stop methanamine hippurate while on antibiotic. Can resume methanamine hippurate after antibiotics completed Chronic Urinary retention -clogged haas was changed in the ED -continue haas -Patient will need followup with [facility] with Dr. Blanca in 2 to 3 weeks ([facility] reports that they will arrange the appointment) -continue finasteride Pulmonary nodule CT abdomen on 08/24/18 12 mm solid right lower lobe pulmonary nodule either new from prior or not included within the previous [id number]. 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 History of liver cirrhosis Deep venous thrombosis prophylaxis, heparin subc Code Status: as per discussion with patient and daughters Margareth [phone] and Danitza [phone], code status is DO NOT INTUBATE but allows for chest compression or defibrillation Discharge Diagnosis Diabetes Mellitus Type 2 (new diagnosis) with complication of Hyperglycemia and Diabetic Ketoacidosis, Elevated Lactic acid, possible urinary tract infection, chronic haas use, chronic urinary retention, right lung lower lobe nodule 12 mm Discharge Instructions Take oral antibiotic cefuroxime 250 mg twice a day for 5 more days Stop methanamine hippurate while on antibiotic. Can resume methanamine hippurate after antibiotics completed Patient to be discharged to be on Lantus 10 units daily Prescriptions made for pen needles for use of giving the. Prescription made for One Touch Verio test strips and patient family was given glucose meter by clinical trial educator nurse Prescriptions made for lancets to check the glucose from blood from the finger Check glucose twice a day and record the numbers for primary care doctor goal is for glucose levels between 100 to 140 before meals. keep glucose levels less than 200 call for medical assistance if glucose less than 70 or above 300 09/02/2018 1:40 PM Provider Selene Bentley DO Department [facility] Discharge with haas Patient will need followup with [facility] with Dr. Blanca in 2 to 3 weeks ([facility] reports that they will arrange the appointment) Subjective Patient seen and examined with wellness manager service and his daughter patient denies shortness of breath. denies chest pain. denies palpitations. denies abdominal pain. denies pain with haas. denies vomiting denies abdominal pain Physical Exam 2 Vital Signs (Past 24 Hours): Last Vital Signs Temp 36.9 C 08/26/18 14:10 Pulse 76 08/26/18 14:10 Resp 18 08/26/18 14:10 BP 106/66 08/26/18 14:10 Pulse Ox 99 08/26/18 14:10 Constitutional: WD/WN, vitals as above Eyes: PERRL, conjunctivae normal, anicteric sclerae EOM intact bilaterally Neck: trachea midline, no thyromegaly Respiratory: normal respiratory effort, lungs clear to auscultation Cardiovascular: RRR, no murmur, no edema Gastrointestinal (Abdomen): normal bowel sounds, soft, nontender, no hepatosplenomegaly Neurologic: PERRL, EOMI, accommodation nl, no face palsy, no dysarthria CN' s II-XI intact bilaterally Psychiatric: A+Ox3, euthymic affect _ (1) DKA (diabetic ketoacidoses) Diabetes mellitus complication detail: without coma Diabetes mellitus type: other specified (including DALIA) Qualified Code(s): E13.10 - Other specified diabetes mellitus with ketoacidosis without coma
--- NOTE | 2018-08-26 14:46 | Discharge Summary ---
Date of Service August 26, 2018 Admission HPI Per Admitting Provider CHIEF COMPLAINT: Urinary retention and found to have new-onset diabetes and UTI. HISTORY OF PRESENT ILLNESS: This is an 88-year-old male who is a English who does not speak Swedish. Daughter is the one who helps with the history. 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 Was brought in by daughter because his Haas catheter got obstructed. It has happened in the past too and the patient was in May 2018 with the some problem and Haas was placed and UTI, looks infected, but he was discharged on Levaquin. But today again the Haas was replaced and was draining fine but labs came back showing UTI and also sugars were 330 and lactic acid was 4.1. Beta hydroxybutyric acid was elevated, so we are called for possible DKA and UTI. The patient complains of severe pain on the chest, abdomen, all over his body, feeling weak and tired, worn out. The patient is afebrile. No headaches. Appetite is okay. He is eating okay. No recent weight gain or weight loss. No nausea, no vomiting. Currently, resting comfortable and hemodynamically stable.Patient lives with his and daughter helps them. He was on hospice care in the past but no longer now. ALLERGIES: No known drug allergies. PAST MEDICAL HISTORY: As mentioned above. PAST SURGICAL HISTORY: None. MEDICATIONS: The patient is currently on Lasix 20 mg every other day, Toprol-XL 50 mg p.o. daily, potassium chloride 8 mEq p.o. daily, Proscar 5 mg p.o. daily, methenamine hippurate 1 gram every evening per urology, aspirin 81 mg p.o. daily, Avodart 0.5 mg p.o. daily, nitroglycerin 0.4 mg sublingual p.r.n., MiraLax 17 grams p.o. daily p.r.n., Senokot-S 2 tablets p.o. at bedtime p.r.n. FAMILY HISTORY: No family history on file. SOCIAL HISTORY: Lives with his . Daughter helps them. No smoking history. No alcohol, no drug use. REVIEW OF SYMPTOMS: As per HPI. Rest of the review of symptoms negative. Admission Exam Per Admitting Provider PHYSICAL EXAMINATION: GENERAL: The patient is alert and oriented. Not in acute distress. VITAL SIGNS: Temperature 36.6, pulse 61, respiratory rate 18, blood pressure 133/85, oxygen 100%. HEENT: No pallor, no icterus. Pupils equal, round, and reactive to light. NECK: No JVD, no neck masses, no carotid bruits. CARDIOVASCULAR: S1, S2, regular rate and rhythm, no murmur, no gallop. RESPIRATORY SYSTEM: Normal AP diameter, no accessory muscle use. No wheezing, no crackles. ABDOMEN: Soft, bowel sounds present. Nontender. No distention. CENTRAL NERVOUS SYSTEM: Nonfocal. EXTREMITIES: No edema, no erythema. Principal Diagnosis Diabetes Mellitus Type 2 (new diagnosis) with complication of Hyperglycemia and Diabetic Ketoacidosis, Elevated Lactic acid, possible urinary tract infection, chronic haas use, chronic urinary retention, right lung lower lobe nodule 12 mm Discharge Exam Constitutional WD/WN, vitals as above Eyes PERRL, conjunctivae normal, anicteric sclerae EOM intact bilaterally Neck trachea midline, no thyromegaly Respiratory normal respiratory effort, lungs clear to auscultation Cardiovascular RRR, no murmur, no edema Gastrointestinal (Abdomen) normal bowel sounds, soft, nontender, no hepatosplenomegaly Neurologic PERRL, EOMI, accommodation nl, no face palsy, no dysarthria CN's II-XI intact bilaterally Psychiatric A+Ox3, euthymic affect Discharge Data Allergies Allergy/AdvReac Type Severity Reaction Status Date / Time No Known Allergies Allergy Verified 08/24/18 06:08 Consultations 08/24/18 05:55 ED Decision to Admit Stat 08/24/18 08:09 Consult Case Management - Discharge Planning Routine Consult Urology Routine Ordered Studies 08/24/18 07:01 CT abd pelvis wo con Urgent Hospital Course (1) DKA (diabetic ketoacidoses): This is an 88-year-old male who presents with urinary retention, found to have urinary tract infection, new-onset diabetes, possible early diabetic ketoacidosis with high blood sugars and lactic acidosis and elevated beta hydroxybutyric acid. mild Diabetic ketoacidosis on admission -on admission day, Patient had 1000 ml of fluids given in the ED when lactic acid 4.1, Lactic acid downtrended to 2.5 and about finished with second 1000 of fluids, and then resolved at 1.9 -anion gap had closed and hyperglycemia resolving with only subcutaneous insulin -HbA1c 10 Patient to be discharged to be on Lantus 10 units daily Prescriptions made for pen needles for use of giving the. Prescription made for One Touch Verio test strips and patient family was given glucose meter by asthma educator nurse Prescriptions made for lancets to check the glucose from blood from the finger possible urinary tract infection -initially on Zosyn and Vancomycin, with only Zosyn continued up to 08/26/17 and switch to oral cefuroxime as admission urine culture: Three types of organisms present, all high counts and admission blood culture with no growth to date -Take oral antibiotic cefuroxime 250 mg twice a day for 5 more days Stop methanamine hippurate while on antibiotic. Can resume methanamine hippurate after antibiotics completed Chronic Urinary retention -clogged haas was changed in the ED -continue haas -Patient will need followup with [facility] with Dr. Blanca in 2 to 3 weeks ([facility] reports that they will arrange the appointment) -continue finasteride Pulmonary nodule CT abdomen on 08/24/18 12 mm solid right lower lobe pulmonary nodule either new from prior or not included within the previous [id number]. 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 History of liver cirrhosis Deep venous thrombosis prophylaxis, heparin subc Code Status: as per discussion with patient and daughters Margareth [phone] and Danitza [phone], code status is DO NOT INTUBATE but allows for chest compression or defibrillation Discharge Diagnosis Diabetes Mellitus Type 2 (new diagnosis) with complication of Hyperglycemia and Diabetic Ketoacidosis, Elevated Lactic acid, possible urinary tract infection, chronic haas use, chronic urinary retention, right lung lower lobe nodule 12 mm Discharge Instructions Take oral antibiotic cefuroxime 250 mg twice a day for 5 more days Stop methanamine hippurate while on antibiotic. Can resume methanamine hippurate after antibiotics completed Patient to be discharged to be on Lantus 10 units daily Prescriptions made for pen needles for use of giving the. Prescription made for One Touch Verio test strips and patient family was given glucose meter by asthma educator nurse Prescriptions made for lancets to check the glucose from blood from the finger Check glucose twice a day and record the numbers for primary care doctor goal is for glucose levels between 100 to 140 before meals. keep glucose levels less than 200 call for medical assistance if glucose less than 70 or above 300 09/02/2018 1:40 PM Provider Selene Bentley DO Department [facility] Discharge with haas Patient will need followup with [facility] with Dr. Blanca in 2 to 3 weeks ([facility] reports that they will arrange the appointment) Total Time Total Time Spent Total Time Spent (In Minutes): 40 minutes Total Time Includes: Examination of the Patient, Discharge Planning and Medication Reconciliation Discharge Plan Discharge Items Patient Disposition: Home - Self-Care Reason For Visit: URINARY RETENTION Discharge Diagnosis: Diabetes Mellitus Type 2 (new diagnosis) with complication of Hyperglycemia and Diabetic Ketoacidosis, Elevated Lactic acid, possible urinary tract infection, chronic haas use, chronic urinary retention. 12 mm right lower lobe pulmonary nodule Condition: Good Discharge Goals: Improve disease control Activity: Resume your previous activity Non-emergency contact: Primary Care Provider and Urologist Call non-emergency contact if: you have any medication questions Diet: Carb Consistent or DM2 Addtl Provider Instructions: Take oral antibiotic cefuroxime 250 mg twice a day for 5 more days Stop methanamine hippurate while on antibiotic. Can resume methanamine hippurate after antibiotics completed Patient to be discharged to be on Lantus 10 units daily Prescriptions made for pen needles for use of giving the. Prescription made for One Touch Verio test strips and patient family was given glucose meter by asthma educator nurse Prescriptions made for lancets to check the glucose from blood from the finger Check glucose twice a day and record the numbers for primary care doctor goal is for glucose levels between 100 to 140 before meals. keep glucose levels less than 200 call for medical assistance if glucose less than 70 or above 300 09/02/2018 1:40 PM Provider Selene Bentley DO Department [facility] Discharge with haas Patient will need followup with [facility] with Dr. Blanca in 2 to 3 weeks ([facility] reports that they will arrange the appointment) Prescriptions: New cefuroxime axetil 250 mg Tablet 250 mg PO BID 5 Days Qty: 10 RF: 0 insulin glargine [Lantus Solostar U-100 Insulin] 100 unit/mL (3 mL) Insulin Pen 10 unit SC DAILY 30 Days Qty: 30 RF: 0 lancets misc .ROUTE .MEDSUPPLY Qty: 50 RF: 0 diabetic supplies, miscellan. misc .ROUTE .MEDSUPPLY Qty: 50 RF: 0 pen needle, diabetic 29 gauge needle .ROUTE .MEDSUPPLY Qty: 90 RF: 0 Continue potassium chloride 8 mEq capsule, extended release 8 meq PO Q OTHER DAY RF: 0 aspirin 81 mg Tablet,Delayed Release (Dr/Ec) 81 mg PO DAILY RF: 0 furosemide 20 mg tablet 20 mg PO Q OTHER DAY RF: 0 finasteride 5 mg tablet 5 mg PO DAILY RF: 0 metoprolol succinate 50 mg tablet extended release 24 hr 50 mg PO DAILY RF: 0 Avodart 0.5 mg 0.5 mg PO DAILY RF: 0 polyethylene glycol 3350 [Miralax] 17 gram Powder In Packet 17 g PO DAILY PRN (Reason: Constipation) RF: 0 sennosides-docusate sodium [Senokot-S] 8.6-50 mg Tablet 2 tab PO HS PRN (Reason: Constipation) RF: 0 Discontinued methenamine hippurate 1 gram tablet 1 g PO QPM RF: 0 Stand-Alone Forms: [facility] Discharge Orders: Discharge Order (Routine); Ordered 08/26/18 Ordered By: Flip Miranda Admission Data Admit Date/Time: 08/24/18 06:56 Attending Provider: Flip Miranda Admit Provider: Dragan Cabral Primary Care Provider: Tamara Toribio Other Providers: Dragan Cabral ; Winston Blanca Service: Telemetry Other Interventions: Discharge Summary Assessment (RN) Last Done: 08/26/18 14:10
[2018-08-26] MEDS ORDERED: cefUROXime axetil 250 MG TABLET PO SCH (21:00)
[2018-08-27] MEDS ORDERED: INSULIN GLARGINE SOLOSTAR 100 UNITS/ML 3 ML PEN SC SCH (09:00)
== END 2018-08-26 14:59 | disposition home health service (06) | DRG 689 ==
LOC: ED 03:46 → 2S 06:56 → SUATTDRO 06:56 → 2S 07:21

== ENCOUNTER 2018-11-03 11:20 | Inpatient (IN) ==
[2018-11-03 12:20] LABS: Hematocrit (blood only) 45.1 % (42-52); Hemoglobin 16.2 g/dL (14.0-18.0); Mean Corpuscular Hgb Conc 35.9 g/dL (32-36); Mean Corpuscular Volume 86.2 fL (80-100); RDW Coefficient of Variation 14.9 % (11.5-14.5); RDW Standard Deviation 47.6 fL (36.4-46.3); Red Blood Count 5.23 M/uL (4.7-6.1)
[2018-11-03 12:22] LABS: Basophils # (auto) 0.02 K/uL (0-0.2); Basophils % (auto) 0.2 %; Eosinophils % (auto) 2.9 %; Immature Granulocytes # (auto) 0.05 K/uL (0.00-0.02); Immature Granulocytes % (auto) 0.5 %; Lymphocytes # (auto) 3.13 K/uL (1.2-3.4); Lymphocytes % (auto) 29.8 %; Mean Platelet Volume 11.6 fL (7.4-10.4); Monocytes # (auto) 1.25 K/uL (0.11-0.59); Monocytes % (auto) 11.9 %; Neutrophils # (auto) 5.75 K/uL (1.4-6.5); Neutrophils % (auto) 54.7 %; Platelet Count 62 K/uL (130-400)
[2018-11-03 12:38] LABS: Appearance Urine Cloudy (Clear); Bacteria Urine Automated 4+ (Negative); Bilirubin Urine Negative (Negative); Blood Urine 3+ (Negative); Color Urine Yellow; Glucose Urine UA Negative (Negative); Ketones Urine Negative (Negative); Leukocyte Esterase Urine 3+ (Negative); Nitrite Urine Positive (Negative); Specific Gravity Urine 1.012 (1.000-1.030); Urobilinogen Urine Negative (Negative); WBC Urine Automated >30 /hpf (0-5); pH Urine >= 9.0 (4.5-7.5)
[2018-11-03 12:42] LABS: Alanine Aminotransferase 94 U/L (12-78); Albumin Globulin Ratio 0.9 (0.9-2); Albumin Level 2.9 gm/dl (3.4-5.0); Alkaline Phosphatase 82 U/L (45-117); BUN Creatinine Ratio 20.3 (10-20); Bilirubin,Total 0.7 mg/dl (0.2-1); Blood Urea Nitrogen 23 mg/dl (7-18); Calcium 8.8 mg/dl (8.5-10.1); Carbon Dioxide 24 mmol/L (21-32); Chloride 107 mmol/L (98-107); Est GFR (Non-African American) 56.1; Globulin 3.3 gm/dl (2.5-4.0); Glucose 108 mg/dl (70-99); Sodium 138 mmol/L (136-145); Total Protein 6.2 gm/dl (6.4-8.2)
[2018-11-03 12:49] LABS: Protein Urine 2+ (Negative)
[2018-11-03 12:51] LABS: RBC Urine Automated >30 /hpf (0-4); Triple Phosphate Crystal Urine Present (None Prsent)
--- NOTE | 2018-11-03 13:08 | Ultrasound Report ---
US scrotum/testicle CLINICAL HISTORY: 88 years-old Male presenting with r testicle pain. TECHNIQUE: Real-time grayscale and color and spectral Doppler ultrasound imaging of the scrotum was p erformed. COMPARISON: None. FINDINGS: Right testis: Normal echogenicity and echotexture. Testis measures 3.9 x 2.2 x 2.2 cm. Hyperemic flow to the testicular parenchyma on color Doppler flow. Preserved arterial and venous waveforms in the t esticular parenchyma. Enlarged and hyperemic epididymis. The epididymis is heterogeneously hypoechoic Additionally, subcentimeter epididymal head cyst(s), either epididymal cyst or spermatocele. Complex hydrocele present. No varicocele. Left testis: Normal echogenicity and echotexture. Testis measures 3.1 x 2.3 x 1.3 cm. Normal color Do ppler flow and arterial and venous waveforms in the testicular parenchyma. Subcentimeter epididymal h ead cyst(s), either epididymal cyst or spermatocele. Small hydrocele present. Varicocele present. Asymmetric increased perfusion of the right testis in comparison to the left. Other: Extensive scrotal skin thickening suggested. IMPRESSION: 1. Right epididymitis-orchitis. No testicular abscess. 2. Complex right hydrocele. This may be reactive. Pyocele is considered less likely. 3. No evidence of testicular torsion. 4. Left varicocele. 5. Small left hydrocele. Electronically signed by: Donald Varela M.D. 11/03/2018 1:07 PM
[2018-11-03] MEDS ORDERED: IOVERSOL 100ml IV PRN (13:17)
--- NOTE | 2018-11-03 13:37 | CT Scan Report ---
CT abd pelvis IV con only CT DOSE: 595.45 mGy.cm HISTORY: Pain abd pain lower abd/suprapubil ? testicle TECHNIQUE: Multiaxial CT images of the abdomen and pelvis were performed following the use of intrave nous contrast. A dose lowering technique was utilized adhering to the principles of ALARA. COMPARISON STUDY: 08/24/2018, 04/14/2017 FINDINGS: Interval development of a small right pleural effusion. Mild chronic bibasilar interstitial change. Unchanging 12 mm nodule right lung base. Findings of unchanged hepatic cirrhosis. Mild fatty replacement. Probable hemangioma of the left hepatic lobe measuring 2 cm. Potential porcelain gallbl adder. Moderate pancreatic atrophy. 2 cm left renal cyst. Moderate cortical scarring of the kidneys b ilaterally. 2 cm upper pole right renal cyst. Noyola catheter within the bladder. Minimal infiltrative change of the suprapubic subcutaneous fat. No evidence for drainable abscess or collection. Stable d estructive and sclerotic changes of L2, L3, and L4. These findings are unchanged from the prior exam. IMPRESSION: 1. Small right pleural effusion. This is an interval change compared to the prior study. 2. Unchanging 12 mm nodular density right base. 3. Fatty replacement of the liver associated with mild hepatic cirrhosis. 4. 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 Left hepatic lobe nodular density potentially relating to a hemangioma. 6. Mild infiltrative change of the suprapubic subcutaneous fat may indicate a low-grade cellulitis. 7. No evidence for abscess collection or obstructive change. 8. Stable destructive and chronic bony changes of the lumbar spine at L2-L3 and L4. This is unaltered from the prior study. The above report was generated using voice recognition software. It may contain grammatical, syntax or spelling errors. Electronically signed by: Chinedu Liu M.D. 11/03/2018 1:36 PM
[2018-11-03] MEDS ORDERED: metroNIDAZOLE 500 MG/100 ML BAG IV STA (13:43)
[2018-11-03] MEDS ORDERED: cefTRIAXone SODIUM 1,000 MG/50 ML BAG IV STA (13:43)
[2018-11-03 13:45] LABS: Potassium 3.9 mmol/L (3.5-5.1)
--- NOTE | 2018-11-03 13:56 | Emergency Department Note ---
Entered by Leonor Nava acting as a scribe for History of Present Illness General Chief complaint: Abdominal Pain Stated complaint: ABD PAIN Source: family History of Present Illness Provider complaint: abdominal pain Onset (ago): week(s) 1 Location: abdomen Pain Consistency: + intermittent Maximum Pain Intensity: 8 Quality: + sharp Exacerbated By: + other (full bladder) Associated symptoms: + other (denies: cough, runny nose, testicular pain) The patient is an 88 year old male who presents to the Emergency Room with complaints of intermittent, sharp abdominal pain beginning within the past week. His family member provides the patient's history. She reports the pain is in his lower abdomen. The family member notes he has had this pain for months, increasing in frequency over the past month. She states his pain is worse when his bladder is full. The patient denies cough, runny nose, or testicular pain. He has had a catheter for 3 years. Family member at bedside notes that the redness started on his abdomen in the past 24 hours. The redness in his right scrotum started this past Saturday. Home Medications Home Medications Medication Instructions Recorded Confirmed Type aspirin 81 mg PO PM 06/17/18 11/03/18 History furosemide 20 mg PO Q OTHER DAY 06/17/18 11/03/18 History potassium chloride 8 meq PO Q OTHER DAY 06/17/18 11/03/18 History metoprolol succinate 50 mg PO QAM 08/24/18 11/03/18 History polyethylene glycol 3350 [Miralax] 17 g PO QAM 08/24/18 11/03/18 History sennosides-docusate sodium 2 tab PO HS PRN 08/24/18 11/03/18 History [Senokot-S] ibuprofen 200 mg PO Q6H PRN 11/03/18 11/03/18 History insulin glargine [Lantus Solostar 14 unit SUBCUT QAM 11/03/18 11/03/18 History U-100 Insulin] Allergies Allergy/AdvReac Type Severity Reaction Status Date / Time No Known Allergies Allergy Verified 11/03/18 12:28 Past Med/Surg History Medical History BPH (benign prostatic hyperplasia) (Chronic) PAF (paroxysmal atrial fibrillation) (Chronic) Diastolic CHF (Chronic) Urinary retention (Chronic) History of osteomyelitis (Resolved) "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 and A total of 10 systems reviewed and were otherwise negative Physical Exam Vital Signs Vital Signs - 24 hr 11/03/18 11:23 11/03/18 12:29 Temperature 36.9 C Temperature Source Oral Sepsis Recent Fever Within 48 Hours No Sepsis New/Unexplained Change in Mental Status No Sepsis Action Taken by Nursing No Action Required Pulse Rate 65 Respiratory Rate 20 Blood Pressure 140/71 Blood Pressure Mean 94 Pulse Oximetry 96 Oxygen Delivery Method Room Air Room Air GENERAL: Sitting up in bed, alert, well appearing, well nourished, no distress, non-toxic, disheveled. EYE EXAM: normal conjunctiva. OROPHARYNX: no exudate, no erythema, lips, buccal mucosa, and tongue normal and mucous membranes are moist NECK: supple, no nuchal rigidity, no adenopathy, non-tender LUNGS: Clear to auscultation. Normal chest wall mechanics HEART: no murmurs, S1 normal and S2 normal ABDOMEN: abdomen soft, non-tender, normo-active bowel, sounds, no masses, no rebound or guarding. : enlarged right testicle which is swollen/red and tender, no crepitus, erythema tracking over the right testicle the right abdomen and right ASIS, f oley in place, yellow urine present in bag BACK: Back is symmetrical on inspection and there is no deformity, no midline tenderness, no CVA tenderness. SKIN: no rashes and no bruising UPPER EXTREMITIES: upper extremities are grossly normal. LOWER EXTREMITIES: No pitting edema. NEURO EXAM: Normal sensorium, cranial nerves II-XII grossly intact, normal speech, no gross weakness of arms, no gross weakness of legs. Course ED COURSE: Vital signs were reviewed and showed no abnormalities. The patients medical record was reviewed The above diagnostic studies were performed and reviewed. ED treatments and interventions as stated above. 1134 : The patient was evaluated in room A3. A complete history and physical examination was performed. 1345: I reviewed the patient's case with [facility] urology. 1348: I discussed the patient's case with Megan Alba PA-C, [facility]. She will evaluate the patient for further management. 1351: Upon reevaluation, the patient is resting. I discussed my findings with the patient and he understands and agrees with the treatment plan. Based on the patients age, coexisting illnesses, exam and lab findings the decision to treat as an inpatient was made. The patient remained stable while under my care. The patient will be evaluated for further management. Consultations Consultation #1: [facility] urology Time: 13:45 Consultation #2: Megan Alba PA-C, [facility] hospital[facility] Time: 13:48 Administered Medications Metronidazole (Flagyl) 500 mg in 100 mls @ 100 mls/hr IV NOW STA Stop: 11/03/18 14:42 Last Admin: 11/03/18 14:08 Dose: 100 mls/hr Documented by: [id number] Ioversol (Optiray 320 100ml) 93 ml IV ONCE PRN PRN Reason: Interaction Checking Stop: 11/07/18 13:16 Last Admin: 11/03/18 13:18 Dose: 93 ml Documented by: [id number] Discontinued Medications Ceftriaxone Sodium (Rocephin) 1,000 mg in 50 mls @ 100 mls/hr IV NOW STA Stop: 11/03/18 14:12 Last Admin: 11/03/18 14:08 Dose: 100 mls/hr Documented by: [id number] Medical Decision Making Differential Diagnosis Differential diagnoses includes but is not limited to gastritis, peptic ulcer disease, GERD, gallbladder disease, pancreatitis, small bowel obstruction, acute coronary syndrome, pericarditis, ischemic bowel, irritable bowel disease, irritable bowel syndrome, appendicitis, diverticulitis, malignancy, hernia, urinary tract infection, torsion, perforation, trauma, infectious. Medical Records Attestation: I reviewed the patient's medical records. Home Medications Current Medication List: was personally reviewed by me Laboratory Data Attestation: I reviewed the patient's lab results. Result diagrams: 11/03/18 12:13 11/03/18 13:25 Lab Results 11/03/18 11/03/18 11/03/18 Range/Units 12:13 12:13 12:19 WBC 10.50 (4.8-10.8) K/uL RBC 5.23 (4.7-6.1) M/uL Hgb 16.2 (14.0-18.0) g/dL Hct 45.1 (42-52) % MCV 86.2 (80-100) fL MCH 31.0 (25-34) pg MCHC 35.9 (32-36) g/dL RDW Std Deviation 47.6 H (36.4-46.3) fL RDW Coeff of Zeus 14.9 H (11.5-14.5) % Plt Count 62 L (130-400) K/uL MPV 11.6 H (7.4-10.4) fL Immature Gran % (Auto) 0.5 % Neut % (Auto) 54.7 % Lymph % (Auto) 29.8 % Crosby % (Auto) 11.9 % Eos % (Auto) 2.9 % Baso % (Auto) 0.2 % Immature Gran # (Auto) 0.05 H (0.00-0.02) K/uL Neut # (Auto) 5.75 (1.4-6.5) K/uL Lymph # (Auto) 3.13 (1.2-3.4) K/uL Crosby # (Auto) 1.25 H (0.11-0.59) K/uL Eos # (Auto) 0.30 (0-0.5) K/uL Baso # (Auto) 0.02 (0-0.2) K/uL Sodium 138 (136-145) mmol/L Potassium (3.5-5.1) mmol/L Chloride 107 (98-107) mmol/L Carbon Dioxide 24 (21-32) mmol/L Anion Gap 8.0 (3-11) BUN 23 H (7-18) mg/dl Creatinine 1.15 (0.6-1.4) mg/dl Est Cr Clr Drug Dosing Not Reportable Est GFR ( Amer) 65.0 Est GFR (Non-Af Amer) 56.1 BUN/Creatinine Ratio 20.3 H (10-20) Glucose 108 H (70-99) mg/dl Calcium 8.8 (8.5-10.1) mg/dl Total Bilirubin 0.7 (0.2-1) mg/dl AST (15-37) U/L ALT 94 H (12-78) U/L Alkaline Phosphatase 82 (45-117) U/L Total Protein 6.2 L (6.4-8.2) gm/dl Albumin 2.9 L (3.4-5.0) gm/dl Globulin 3.3 (2.5-4.0) gm/dl Albumin/Globulin Ratio 0.9 (0.9-2) Lipase 208 (73-393) U/L Urine Color Yellow Urine Appearance Cloudy H (Clear) Urine pH >= 9.0 H (4.5-7.5) Ur Specific Ola 1.012 (1.000-1.030) Urine Protein 2+ H (Negative) Urine Glucose (UA) Negative (Negative) Urine Ketones Negative (Negative) Urine Blood 3+ H (Negative) Urine Nitrite Positive H (Negative) Urine Bilirubin Negative (Negative) Urine Urobilinogen Negative (Negative) Ur Leukocyte Esterase 3+ H (Negative) Urine WBC (Auto) >30 H (0-5) /hpf Urine RBC (Auto) >30 H (0-4) /hpf U Hyaline Cast (Auto) 1-5 (0-5) /lpf U Epithel Cells (Auto) 10-20 H (0-5) /lpf Urine Bacteria (Auto) 4+ H (Negative) Triple Phos Crystals Present H (None Prsent) Urine Yeast Not Reportable 11/03/18 Range/Units 13:25 WBC (4.8-10.8) K/uL RBC (4.7-6.1) M/uL Hgb (14.0-18.0) g/dL Hct (42-52) % MCV (80-100) fL MCH (25-34) pg MCHC (32-36) g/dL RDW Std Deviation (36.4-46.3) fL RDW Coeff of Zeus (11.5-14.5) % Plt Count (130-400) K/uL MPV (7.4-10.4) fL Immature Gran % (Auto) % Neut % (Auto) % Lymph % (Auto) % Crosby % (Auto) % Eos % (Auto) % Baso % (Auto) % Immature Gran # (Auto) (0.00-0.02) K/uL Neut # (Auto) (1.4-6.5) K/uL Lymph # (Auto) (1.2-3.4) K/uL Crosby # (Auto) (0.11-0.59) K/uL Eos # (Auto) (0-0.5) K/uL Baso # (Auto) (0-0.2) K/uL Sodium (136-145) mmol/L Potassium 3.9 (3.5-5.1) mmol/L Chloride (98-107) mmol/L Carbon Dioxide (21-32) mmol/L Anion Gap (3-11) BUN (7-18) mg/dl Creatinine (0.6-1.4) mg/dl Est Cr Clr Drug Dosing Est GFR ( Amer) Est GFR (Non-Af Amer) BUN/Creatinine Ratio (10-20) Glucose (70-99) mg/dl Calcium (8.5-10.1) mg/dl Total Bilirubin (0.2-1) mg/dl AST 82 H (15-37) U/L ALT (12-78) U/L Alkaline Phosphatase (45-117) U/L Total Protein (6.4-8.2) gm/dl Albumin (3.4-5.0) gm/dl Globulin (2.5-4.0) gm/dl Albumin/Globulin Ratio (0.9-2) Lipase (73-393) U/L Urine Color Urine Appearance (Clear) Urine pH (4.5-7.5) Ur Specific Ola (1.000-1.030) Urine Protein (Negative) Urine Glucose (UA) (Negative) Urine Ketones (Negative) Urine Blood (Negative) Urine Nitrite (Negative) Urine Bilirubin (Negative) Urine Urobilinogen (Negative) Ur Leukocyte Esterase (Negative) Urine WBC (Auto) (0-5) /hpf Urine RBC (Auto) (0-4) /hpf U Hyaline Cast (Auto) (0-5) /lpf U Epithel Cells (Auto) (0-5) /lpf Urine Bacteria (Auto) (Negative) Triple Phos Crystals (None Prsent) Urine Yeast Imaging Data Radiologist's Impression: Radiology results as stated below per my review and the radiologist's interpretation: US scrotum/testicle CLINICAL HISTORY: 88 years-old Male presenting with r testicle pain. TECHNIQUE: Real-time grayscale and color and spectral Doppler ultrasound imaging of the scrotum was performed. COMPARISON: None. FINDINGS: Right testis: Normal echogenicity and echotexture. Testis measures 3.9 x 2.2 x 2.2 cm. Hyperemic flow to the testicular parenchyma on color Doppler flow. Preserved arterial and venous waveforms in the testicular parenchyma. Enlarged and hyperemic epididymis. The epididymis is heterogeneously hypoechoic Additionally, subcentimeter epididymal head cyst(s), either epididymal cyst or spermatocele. Complex hydrocele present. No varicocele. Left testis: Normal echogenicity and echotexture. Testis measures 3.1 x 2.3 x 1.3 cm. Normal color Doppler flow and arterial and venous waveforms in the testicular parenchyma. Subcentimeter epididymal head cyst(s), either epididymal cyst or spermatocele. Small hydrocele present. Varicocele present. Asymmetric increased perfusion of the right testis in comparison to the left. Other: Extensive scrotal skin thickening suggested. IMPRESSION: 1. Right epididymitis-orchitis. No testicular abscess. 2. Complex right hydrocele. This may be reactive. Pyocele is considered less likely. 3. No evidence of testicular torsion. 4. Left varicocele. 5. Small left hydrocele. Electronically signed by: Donald Varela M.D. 11/03/2018 1:[address] abd pelvis IV con only CT DOSE: 595.45 mGy.cm HISTORY: Pain abd pain lower abd/suprapubil ? testicle TECHNIQUE: Multiaxial CT images of the abdomen and pelvis were performed f ollowing the use of intravenous contrast. A dose lowering technique was utilized adhering to the principles of ALARA. COMPARISON STUDY: 08/24/2018, 04/14/2017 FINDINGS: Interval development of a small right pleural effusion. Mild chronic bibasilar interstitial change. Unchanging 12 mm nodule right lung base. Findings of unchanged hepatic cirrhosis. Mild fatty replacement. Probable hemangioma of t he left hepatic lobe measuring 2 cm. Potential porcelain gallbladder. Moderate pancreatic atrophy. 2 cm left renal cyst. Moderate cortical scarring of the kidneys bilaterally. 2 cm upper pole right renal cyst. Noyola catheter within the bladder. Minimal infiltrative change of the suprapubic subcutaneous fat. No evidence for drainable abscess or collection. Stable destructive and sclerotic changes of L2, L3, and L4. These findings are unchanged from the prior exam. IMPRESSION: 1. Small right pleural effusion. This is an interval change compared to the prior study. 2. Unchanging 12 mm nodular density right base. 3. Fatty replacement of the liver associated with mild hepatic cirrhosis. 4. 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 Left hepatic lobe nodular density potentially relating to a hemangioma. 6. Mild infiltrative change of the suprapubic subcutaneous fat may indicate a low-grade cellulitis. 7. No evidence for abscess collection or obstructive change. 8. Stable destructive and chronic bony changes of the lumbar spine at L2-L3 and L4. This is unaltered from the prior study. The above report was generated using voice recognition software. It may contain grammatical, syntax or spelling errors. Electronically signed by: Chinedu Liu M.D. 11/03/2018 1:36 PM Blood Pressure Blood Pressure Findings: Normal blood pressure Blood Pressure Disposition: did not require urgent referral MDM Narrative Patient is an 88-year-old male who presents the ER for abdominal pain located in his suprapubic region. On exam he has a swollen erythematous and tender right testicle with erythema tracking over the abdomen. Labs show no significant leukocytosis or anemia. BMP was unremarkable. Bilirubin was normal. Mild transaminitis. Lipase was normal. UA does suggest a UTI but he does have a chronic indwelling Noyola. CT of the abdomen pelvis shows a pleural effusion with a questionable porcelain gallbladder. Patient has no tenderness in the right upper quadrant. Ultrasound of the testicles shows epididymitis/orchitis versus pyocele. Discussed with urology they recommended IV antibiotics including cefepime and Flagyl. Patient was already covered with Rocephin and Flagyl. Did not want to double cover with beta lactams and consequently gave 1 dose of IV Levaquin which would cover Pseudomonas which we would be missing with Rocephin versus cefepime. Discussed the case with Alek Hopkins. Jose blake was updated and will be admitted to the hospital for possible pyocele with cellulitis tracking onto his abdomen. Impression & Plan Epididymo-orchitis, Cellulitis Discharge Plan Visit Data Chief Complaint: Abdominal Pain Stated Complaint: ABD PAIN ED Provider: Pedro Nuñez Discharge Problem: Epididymo-orchitis, Cellulitis Patient Disposition: Being Evaluated by Hospitalist Forms Stand Alone Forms: My [facility] Prescriptions Prescriptions: No Action potassium chloride 8 mEq capsule, extended release 8 meq PO Q OTHER DAY RF: 0 aspirin 81 mg Tablet,Delayed Release (Dr/Ec) 81 mg PO PM RF: 0 furosemide 20 mg tablet 20 mg PO Q OTHER DAY RF: 0 metoprolol succinate 50 mg tablet extended release 24 hr 50 mg PO QAM RF: 0 polyethylene glycol 3350 [Miralax] 17 gram Powder In Packet 17 g PO QAM RF: 0 sennosides-docusate sodium [Senokot-S] 8.6-50 mg Tablet 2 tab PO HS PRN (Reason: Constipation) RF: 0 ibuprofen 200 mg Tablet 200 mg PO Q6H PRN (Reason: Pain) RF: 0 Lantus Solostar U-100 Insulin 100 unit/mL (3 mL) insulin pen 14 unit subcut QAM RF: 0 Referrals Referrals: PCP,NO [Primary Care Provider] - Discharge Problem: Cellulitis Qualifiers: Site of cellulitis: other site Qualified Code(s): L03.818 - Cellulitis of other sites The scribe's documentation has been prepared under my direction and personally reviewed by me in its entirety. I confirm that the note above accurately reflects all work, treatment, procedures, and medical decision making performed by me.
[2018-11-03] MEDS ORDERED: LEVOFLOXACIN/D5W 500 MG/100 ML BAG IV SCH (14:30)
--- NOTE | 2018-11-03 15:37 | History & Physical Report ---
Date of Service November 03, 2018 Assessment & Plan (1) Epididymo-orchitis: (2) Abdominal wall cellulitis: This is an 88-year-old male with a PMH of BPH with indwelling catheter, recurrent UTIs, diastolic heart failure, paroxysmal atrial fibrillation, thrombocytopenia and known cirrhosis who presents with worsening right suprapubic pain x 4 days and was found to have R epididymo-orchitis, abdominal wall cellulitis and complicated UTI. -Hemodynamically stable, non-toxic in appearance, no leukocytosis -In setting of indwelling catheter, BPH, recurrent UTIs -No h/o epididymitis or orchitis in the past -Scrotum ultrasound with right epididymitis-orchitis, no testicular abscess. Complex right hydrocele. This may be reactive. Pyocele is considered less likely. No evidence of testicular torsion. -CT abd/pelvis with mild infiltrative change of the suprapubic subcutaneous fat may indicate a low-grade cellulitis. -Discussed with urology, who recommend empiric coverage with Cefepime and Flagyl. NPO after midnight. (3) Complicated UTI (urinary tract infection): (4) BPH (benign prostatic hyperplasia): (5) Chronic indwelling Haas catheter: UA with evidence of possible infection in setting of bladder outlet obstruction 2/2 BPH -Had catheter changed 4 days ago -Past urine cultures have grown high counts of bacteria but have not specified -Follow urine culture, monitor urine output (6) PAF (paroxysmal atrial fibrillation): Regular rate and rhythm on physical exam -Continue Toprol (7) Diastolic CHF: Appears euvolemic -Low sodium diet, continue home dose of Lasix, KCl every other day (8) Thrombocytopenia: Platelets of 62 today (similar to admission in Jul 2018) -In setting of cirrhosis -Will hold off on pharmacologic VTE in setting of thrombocytopenia, possible urological intervention (9) Cirrhosis of liver: LFTs at baseline. CT abd/pelvis with fatty replacement of the liver associated with mild hepatic cirrhosis DVT Ppx: SCDs Code status: DNR per discussion with daughter PCP: Mc Dispo: Observation med surg. Discharge planning ordered. Patient seen in collaboration with Dr. Hopkins. Please see addendum. Will be followed by Dr. Miranda for remainder of admission. History of Present Illness Chief Complaint: suprapubic abd pain Primary Care Provider: Selene Bentley This is an 88-year-old male with a PMH of BPH with indwelling catheter, recurrent UTIs, diastolic heart failure, paroxysmal atrial fibrillation, thrombocytopenia and known cirrhosis who presents with worsening right suprapubic pain x 4 days. Patient speaks American as primary language, but daughter at bedside help to provide history. Patient has been admitted in the past for UTIs and urine cultures have grown high counts of bacteria but have not specified. Daughter states the patient has complained of intermittent suprapubic pain over the past few months, but pain has been constant since Saturday. Also with decreased appetite, generalized weakness and occasional shortness of b reath. Is a patient of Dr. Blanca of [facility]. Usually has catheter replaced monthly, but has required replacement every few weeks lately due to clogging, per daughter. Catheter was last replaced 4 days ago. Denies any fever, chills denies fever, chills, headache, lightheadedness, chest pain, nausea, vomiting, abdominal pain, diarrhea or constipation. Lives at home with , but daughter assists with medical care. Patient is a DNR. Allergies Allergy/AdvReac Type Severity Reaction Status Date / Time No Known Allergies Allergy Verified 11/03/18 12:28 Home Medications Home Medications Medication Instructions Recorded Confirmed Type aspirin 81 mg PO PM 06/17/18 11/03/18 History furosemide 20 mg PO Q OTHER DAY 06/17/18 11/03/18 History potassium chloride 8 meq PO Q OTHER DAY 06/17/18 11/03/18 History metoprolol succinate 50 mg PO QAM 08/24/18 11/03/18 History polyethylene glycol 3350 [Miralax] 17 g PO DAILY PRN 08/24/18 11/03/18 History sennosides-docusate sodium 2 tab PO HS PRN 08/24/18 11/03/18 History [Senokot-S] ibuprofen 200 mg PO Q6H PRN 11/03/18 11/03/18 History insulin glargine [Lantus Solostar 14 unit SUBCUT QAM 11/03/18 11/03/18 History U-100 Insulin] methenamine hippurate 1 g PO HS 11/03/18 11/03/18 History Past Med/Surg History Medical History Cirrhosis of liver (Chronic) BPH (benign prostatic hyperplasia) (Chronic) PAF (paroxysmal atrial fibrillation) (Chronic) Diastolic CHF (Chronic) History of osteomyelitis (Resolved) "H/o lumbar spine osteomyelitis with R psoas abscess" Chronic back pain (Chronic) Complicated UTI (urinary tract infection) (Acute) Right epididymitis (Acute) Chronic indwelling Haas catheter (Chronic) Family History Other Family history non-contributory Social History Preferred Language: American Communication Ability: Effective Dental Hygienist Mobile Coordinator Required: Yes Beliefs That Will Affect Care: Advent Current Living Situation: Spouse Other Information That Helps Us Care for You: No Feels Safe at Home: Yes Safety Concerns: Feels Safe At This Time Smoking Status: Never smoker Hx Alcohol Use: No Hx Substance Use: No Review of Systems Constitutional: + fatigue and + anorexia; no fever and no chills Eyes: no worsening vision Respiratory: no cough and no dyspnea Cardiovascular: no chest pain and no palpitations Gastrointestinal: no abdominal pain, no nausea, no vomiting and no change in stools Genitourinary (Male): + difficulty urinating, + hematuria and + scrotal swelling Musculoskeletal: no stiffness and no body aches Integumentary: no change in skin color Neurologic: + generalized weakness; no confusion Physical Exam Vital Signs (Past 24 Hours): Last Vital Signs Temp 36.9 C 11/03/18 11:23 Pulse 77 11/03/18 14:50 Resp 20 11/03/18 14:50 BP 164/91 H 11/03/18 14:50 Pulse Ox 99 11/03/18 14:50 Physical Exam: General Appearance: WD/WN, no apparent distress, resting comfortably Head: normocephalic, atraumatic Eyes: normal inspection, PERRL, EOMI ENT: hearing grossly normal, pharynx normal (moist mucous membranes) Neck: supple, no JVD, no adenopathy Respiratory/Chest: lungs clear to auscultation. No wheezes, rales or rhonci. No respiratory distress or accessory muscle use Cardiovascular: regular rate, rhythm, no murmur, normal peripheral pulses, no BLE edema Abdomen/GI: normal bowel sounds, soft, non-tender to palpation : R scrotum erythematous and edematous with extension to RLQ, tender to palpation. + Suprapubic TTP. Indwelling haas present Extremities/Musculoskelatal: normal inspection, no calf tenderness, normal capillary refill, no pedal edema Neurologic/Psych: alert, normal mood/affect, oriented x 3 Skin: normal color, warm/dry Results & Data Laboratory Results Short CBC 11/03/18 Range/Units 12:13 WBC 10.50 (4.8-10.8) K/uL Hgb 16.2 (14.0-18.0) g/dL Hct 45.1 (42-52) % Plt Count 62 L (130-400) K/uL BMP 11/03/18 11/03/18 12:13 13:25 Sodium 138 Potassium 3.9 Chloride 107 Carbon Dioxide 24 BUN 23 H Creatinine 1.15 Glucose 108 H Calcium 8.8 Liver Function 11/03/18 11/03/18 Range/Units 12:13 13:25 Total Bilirubin 0.7 (0.2-1) mg/dl AST 82 H (15-37) U/L ALT 94 H (12-78) U/L Alkaline Phosphatase 82 (45-117) U/L Albumin 2.9 L (3.4-5.0) gm/dl Urine 11/03/18 Range/Units 12:19 Urine Color Yellow Urine Appearance Cloudy H (Clear) Urine pH >= 9.0 H (4.5-7.5) Ur Specific Kingsley 1.012 (1.000-1.030) Urine Protein 2+ H (Negative) Urine Glucose (UA) Negative (Negative) Diagnostic Findings Scrotum ultrasound: IMPRESSION: 1. Right epididymitis-orchitis. No testicular abscess. 2. Complex right hydrocele. This may be reactive. Pyocele is considered less likely. 3. No evidence of testicular torsion. 4. Left varicocele. 5. Small left hydrocele. CT abd/pelvis: IMPRESSION: 1. Small right pleural effusion. This is an interval change compared to the prior study. 2. Unchanging 12 mm nodular density right base. 3. Fatty replacement of the liver associated with mild hepatic cirrhosis. 4. 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 Left hepatic lobe nodular density potentially relating to a hemangioma. 6. Mild infiltrative change of the suprapubic subcutaneous fat may indicate a low-grade cellulitis. 7. No evidence for abscess collection or obstructive change. 8. Stable destructive and chronic bony changes of the lumbar spine at L2-L3 and L4. This is unaltered from the prior study. Supervising Physician Co-Signing Physician Notes HISTORY: Record reviewed. Patient interviewed and examined. Care coordinated with Megan Alba PA-C. Please refer to her documentation for patient's history. Briefly, 88 YO male with Haas cath for chronic urinary retention. Presented to ED with scrotal pain. EXAM: General- no distress Lungs- clear to auscultation; no respiratory distress Cardiovascular- RRR; no murmur; no gallop; no JVD; no pretibial edema Abdomen- + bowel sounds, soft, nontender - Haas cath; swelling and tenderness right testicle Extremities- no cyanosis; no calf tenderness Neuro- alert, oriented Skin- erythema scrotum, suprapubic area, and right groin DATA: WBC 10,500. Other lab studies as noted. 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 ED provider discussed case with Urology. IV antibiotic therapy with cefepime and metronidazole ordered. Please refer to OLEGARIO Alba's documentation for discussion of other issues.
[2018-11-03] MEDS ORDERED: ACETAMINOPHEN 325 MG TAB PO PRN (16:20)
[2018-11-03] MEDS ORDERED: DOCUSATE SODIUM/SENNA 50/8.6MG TAB PO PRN (16:20)
[2018-11-03] MEDS ORDERED: POLYETHYLENE (MIRALAX) 17 GM PACK PO PRN ×2 (16:20)
[2018-11-03] MEDS ORDERED: ONDANSETRON INJ 2 MG/ML 2 ML VIAL IV PRN (16:20)
[2018-11-03] MEDS ORDERED: IBUPROFEN 200 MG TAB PO PRN (16:20)
[2018-11-03] MEDS ORDERED: CARBOHYDRATES FOR HYPOGLYCEMIA PO PRN (16:42)
[2018-11-03] MEDS ORDERED: GLUCOSE 40% GEL 15 GM TUBE PO PRN (16:42)
[2018-11-03] MEDS ORDERED: GLUCAGON FOR INJ 1 MG VIAL SQ PRN (16:42)
[2018-11-03] MEDS ORDERED: DEXTROSE 50% 50 ML SYRINGE IV PRN (16:42)
[2018-11-03] MEDS ORDERED: GLUCOSE 10 TABS/TUBE PO PRN (16:42)
[2018-11-03] MEDS ORDERED: CEFEPIME CONSULT ACTIVE PRN (16:50)
[2018-11-03] MEDS ORDERED: METRONIDAZOLE CONSULT ACTIVE PRN (16:54)
[2018-11-03] MEDS: POTASSIUM CHLORIDE 20MEQ/15ML 473ML PO SCH (19:32)
[2018-11-03] MEDS: FUROSEMIDE 20 MG TAB PO SCH (19:32)
[2018-11-03] MEDS: ASPIRIN 81 MG ECTAB PO SCH (20:52)
[2018-11-03] MEDS: METHENAMINE HIPPURATE 1 GM TAB PO SCH (20:53)
[2018-11-03] MEDS ORDERED: INSULIN ASPART 100 UNITS/ML 3 ML PEN SC SCH (21:00)
[2018-11-03] MEDS: metroNIDAZOLE 500 MG/100 ML BAG IV SCH (21:01)
[2018-11-03] MEDS: INSULIN GLARGINE SOLOSTAR 100 UNITS/ML 3 ML PEN SC SCH (21:03)
[2018-11-03] MEDS ORDERED: Nursing to Pharmacy Communication ONE (21:35)
[2018-11-04] MEDS: CEFEPIME 2,000 MG in SYRINGE 7.5 ML IV SCH (04:58)
[2018-11-04] MEDS: metroNIDAZOLE 500 MG/100 ML BAG IV SCH ×3 (04:58→21:36)
[2018-11-04] MEDS: INSULIN ASPART 100 UNITS/ML 3 ML PEN SC SCH ×5 (06:26→21:45)
[2018-11-04 07:23] LABS: Hematocrit (blood only) 44.7 % (42-52); Hemoglobin 15.7 g/dL (14.0-18.0); Mean Corpuscular Hgb Conc 35.1 g/dL (32-36); RDW Coefficient of Variation 14.9 % (11.5-14.5); RDW Standard Deviation 47.5 fL (36.4-46.3)
[2018-11-04 07:49] LABS: Mean Platelet Volume 11.4 fL (7.4-10.4); Platelet Count 70 K/uL (130-400)
[2018-11-04 07:57] LABS: BUN Creatinine Ratio 15.7 (10-20); Calcium 8.8 mg/dl (8.5-10.1); Creatinine Clr Calc Pharmacy 31.8 ml/min; Est GFR (African American) 58.2; Est GFR (Non-African American) 50.2; Potassium 3.9 mmol/L (3.5-5.1)
[2018-11-04 08:36] LABS: Estimated Average Glucose 146 mg/dl; Hemoglobin A1C 6.7 % (4.5-5.6)
[2018-11-04] MEDS: METOPROLOL SUCC 50MG EXT REL TAB PO SCH (09:30)
[2018-11-04] MEDS: INSULIN GLARGINE SOLOSTAR 100 UNITS/ML 3 ML PEN SC SCH ×2 (10:03→21:43)
--- NOTE | 2018-11-04 11:23 | Urology Progress Note ---
Date of Service November 04, 2018 Subjective 88y/o non-Maltese speaking gentleman with a long hx of indwelling haas catheter and recurrent UTIs - follows with Dr. Blanca as an outpt. - now admitted with progressive right testicular pain and swelling as well as lower abdominal pain and erythema - CT - edema, but no visible abscess, etc - Physical Exam Vital Signs (Past 24 Hours): Last Vital Signs Temp 36.4 C L 11/04/18 07:14 Pulse 57 L 11/04/18 07:14 Resp 18 11/04/18 07:14 BP 123/74 11/04/18 07:14 Pulse Ox 93 11/04/18 07:14
[2018-11-04] MEDS ORDERED: Nursing to Pharmacy Communication ONE (12:31)
--- NOTE | 2018-11-04 14:13 | Hospitalist Progress Note ---
Date of Service November 04, 2018 Assessment & Plan (1) Epididymo-orchitis: ultrasound scrotum: right epididymitis-orchitis complex right hydrocele; pyocele felt to be unlikely no testicular torsion (2) Abdominal wall cellulitis: This is an 88-year-old male with a PMH of BPH with indwelling catheter, recurrent UTIs, diastolic heart failure, paroxysmal atrial fibrillation, thrombocytopenia and known cirrhosis who presents with worsening right supr apubic pain x 4 days and was found to have R epididymo-orchitis, abdominal wall cellulitis and complicated UTI. -Hemodynamically stable, non-toxic in appearance, no leukocytosis -In setting of indwelling catheter, BPH, recurrent UTIs -No h/o epididymitis or orchitis in the past -Scrotum ultrasound with right epididymitis-orchitis, no testicular abscess. Complex right hydrocele. This may be reactive. Pyocele is considered less likely. No evidence of testicular torsion. -CT abd/pelvis with mild infiltrative change of the suprapubic subcutaneous fat may indicate a low-grade cellulitis. -on admission the case was discussed with urology, who recommend empiric coverage with Cefepime and Flagyl -there appears to be to no plans by urology at this time for imminent urology procedures -blood cultures from 11/04/18 are pending -de-escalate antibiotics based on clinical improvement (i.e. when less pain) (3) Complicated UTI (urinary tract infection): management as above presumed that abdominal wall cellulitis and pain and dsyuria is due to infection of urine even though no readily identifiable bacteria at this time (4) BPH (benign prostatic hyperplasia): (5) Chronic indwelling Haas catheter: UA with evidence of possible infection in setting of bladder outlet obstruction 2/2 BPH -Had catheter changed 4 days ago -Past urine cultures have grown high counts of bacteria but have not specified - Urine Culture from 11/03/18 finalized on 11/04/18 Three types of organisms present, all high counts. Repeat collection recommended. No further identifications or sensitivities to follow. (6) PAF (paroxysmal atrial fibrillation): Regular rate and rhythm on physical exam -Continue Toprol (7) Diastolic CHF: Appears euvolemic -Low sodium diet, continue home dose of Lasix, KCl every other day (8) Thrombocytopenia: -In setting of cirrhosis (9) Cirrhosis of liver: LFTs at baseline. CT abd/pelvis with fatty replacement of the liver associated with mild hepatic cirrhosis DVT Ppx: SCDs Code status: DNR per discussion with daughter Patient's daughter is Margareth PCP: Mc Da Silva Patient was see and examined with daughter Margareth at bedside. Patient is Grenadian speaker and even with translation is not a good historian. Appears that there is no one particular area of tenderness on exam. There is rash over the right lower quadrant towards the groin. Patient have haas catheter. Patient reports worse pain with urination. There is urine in the haas bag and haas does not appear obstructed. As per discussion with patient's daughter Margareth, the urology team was present earlier and there are no current invasive plans. Physical Exam Vital Signs (Past 24 Hours): Last Vital Signs Temp 36.4 C L 11/04/18 07:14 Pulse 57 L 11/04/18 07:14 Resp 18 11/04/18 07:14 BP 123/74 11/04/18 07:14 Pulse Ox 93 11/04/18 07:14 Constitutional: WD/WN, vitals as above Eyes: PERRL, conjunctivae normal, anicteric sclerae EOM intact bilaterally ENMT: external ear and nose normal, oropharynx normal Neck: normal visual inspection Respiratory: normal respiratory effort, lungs clear to auscultation Cardiovascular: RRR, no murmur, no edema Gastrointestinal (Abdomen): thin male with potbelly for someone of his size, erythema of right lower quadrant to groin. nontender on palpation Musculoskeletal: Head/Neck/Chest: normocephalic and head atraumatic Neurologic: PERRL, EOMI, accommodation nl, no face palsy, no dysarthria Psychiatric: Orientation: alert and cooperative Genitourinary: scrotal area is red but nontender
--- NOTE | 2018-11-04 14:35 | Urology Consultation ---
Date of Consultation November 04, 2018 Assessment & Plan (1) Epididymo-orchitis: Chronic urinary retention; epididymoorchitis plus cellulitis -Seems to have made substantial progress with IV antibiotics since admission -Catheter seems to be draining adequately -Culture on 10/31/18 was negative, however I suspect that his catheter and bladder were the initial source of his bacteria and thus infection of the testis and skin -Presuming he continues to progress with antibiotics, I would favor treating him for 2-3 weeks or until resolution of his skin and scrotal symptoms -We will then arrange for outpatient follow-up with Dr. Blanca -At this point, I do not feel there is any surgical intervention warranted, but we will continue to follow to be sure he progresses appropriately History of Present Illness Attending Physician: Flip Miranda MD History of Present Illness 88-year-old gentleman well-known to our service and following with Dr. Blanca as an outpatient, presents after increasing trouble with his Haas catheter as well as right scrotal swelling and testicular tenderness Is an acquired hypospadias as well as long-term indwelling Haas catheter He has had recurrent urinary tract infections, however, his current hospital visit was predicated by right testicular and scrotal swelling, erythema and pain After initially observing this for several days, it progressed and he started to develop lower abdominal erythema and tenderness Imaging upon arrival including CT and scrotal ultrasound show inflammation and edema without abscess or gas forming infection. He does have reactive hydrocele and ultrasound findings consistent with epididymoorchitis. He is afebrile, nontoxic. Subjectively reports he feels well now, substantially improved from admission Allergies Allergy/AdvReac Type Severity Reaction Status Date / Time No Known Allergies Allergy Verified 11/03/18 12:28 Home Medications Home Medications Medication Instructions Recorded Confirmed Type aspirin 81 mg PO PM 06/17/18 11/03/18 History furosemide 20 mg PO Q OTHER DAY 06/17/18 11/03/18 History potassium chloride 8 meq PO Q OTHER DAY 06/17/18 11/03/18 History metoprolol succinate 50 mg PO QAM 08/24/18 11/03/18 History polyethylene glycol 3350 [Miralax] 17 g PO DAILY PRN 08/24/18 11/03/18 History sennosides-docusate sodium 2 tab PO HS PRN 08/24/18 11/03/18 History [Senokot-S] ibuprofen 200 mg PO Q6H PRN 11/03/18 11/03/18 History insulin glargine [Lantus Solostar 14 unit SUBCUT QAM 11/03/18 11/03/18 History U-100 Insulin] methenamine hippurate 1 g PO HS 11/03/18 11/03/18 History Patient History Medical History Cirrhosis of liver (Chronic) BPH (benign prostatic hyperplasia) (Chronic) PAF (paroxysmal atrial fibrillation) (Chronic) Diastolic CHF (Chronic) History of osteomyelitis (Resolved) "H/o lumbar spine osteomyelitis with R psoas abscess" Chronic back pain (Chronic) Complicated UTI (urinary tract infection) (Acute) Right epididymitis (Acute) Chronic indwelling Haas catheter (Chronic) Family History Other Family history non-contributory Social History Communication Ability: Effective Beliefs That Will Affect Care: Anglican marital status: Current Living Situation: Spouse Other Information That Helps Us Care for You: No Feels Safe at Home: Yes Safety Concerns: Feels Safe At This Time Smoking Status: Never smoker Hx Alcohol Use: No Hx Substance Use: No Review of Systems Constitutional: as per Subjective / HPI and + body aches; no fever and no chills Respiratory: no cough and no dyspnea Cardiovascular: no chest pain and no dyspnea Gastrointestinal: + abdominal pain and + problem reported; no nausea Genitourinary (Male): + difficulty urinating, + hematuria, + genital pain and + testicle pain Musculoskeletal: no back pain and no neck pain Integumentary: + problem reported; no rash Neurologic: no falls Psychiatric: no behavioral changes Endocrine: no fatigue Physical Exam Vital Signs (Past 24 Hours): Last Vital Signs Temp 36.4 C L 11/04/18 07:14 Pulse 57 L 11/04/18 07:14 Resp 18 11/04/18 07:14 BP 123/74 11/04/18 07:14 Pulse Ox 93 11/04/18 07:14 Physical Exam: Non-Khmer speaker, accompanied by a family member who assists with communication - NAD - AAOx3 - no resp distress - RRR abd soft, non-tender - minimal erythema in the right inguinal and midline suprapubic regions - no fluctuance - no crepitus - right hemiscrotum with erythema (no ulceration, no crepitus, no fluctuance) - right testis is swollen, indurated and moderately tender - haas catheter in position - acquired hypospadias - clear urine
[2018-11-04] MEDS: METHENAMINE HIPPURATE 1 GM TAB PO SCH (21:36)
[2018-11-04] MEDS: ASPIRIN 81 MG ECTAB PO SCH (21:36)
[2018-11-05] MEDS: CEFEPIME 2,000 MG in SYRINGE 7.5 ML IV SCH (05:40)
[2018-11-05] MEDS: metroNIDAZOLE 500 MG/100 ML BAG IV SCH (05:40)
[2018-11-05 07:18] LABS: Hematocrit (blood only) 42.5 % (42-52); Hemoglobin 14.9 g/dL (14.0-18.0); Mean Corpuscular Hgb Conc 35.1 g/dL (32-36); RDW Coefficient of Variation 14.8 % (11.5-14.5); RDW Standard Deviation 46.6 fL (36.4-46.3); Red Blood Count 4.94 M/uL (4.7-6.1); White Blood Count 9.21 K/uL (4.8-10.8)
[2018-11-05 07:28] LABS: Mean Platelet Volume 11.1 fL (7.4-10.4); Platelet Count 73 K/uL (130-400)
[2018-11-05 07:33] LABS: BUN Creatinine Ratio 23.9 (10-20); Calcium 8.5 mg/dl (8.5-10.1); Creatinine Clr Calc Pharmacy 29.9 ml/min; Est GFR (African American) 54.1; Est GFR (Non-African American) 46.6
[2018-11-05] MEDS: METOPROLOL SUCC 50MG EXT REL TAB PO SCH (08:37)
[2018-11-05] MEDS: INSULIN ASPART 100 UNITS/ML 3 ML PEN SC SCH ×4 (09:48→21:02)
[2018-11-05] MEDS: INSULIN GLARGINE SOLOSTAR 100 UNITS/ML 3 ML PEN SC SCH ×2 (09:51→21:01)
--- NOTE | 2018-11-05 10:00 | Urology Progress Note ---
Date of Service November 05, 2018 Assessment & Plan (1) Epididymo-orchitis: Patient continues to improve with antibiotics. Feeling well, improvement in swelling of R testicle and scrotum. Please see Dr. Johnson's consult note for our antibiotic recommendations. Outpatient URO follow up has been arranged. Thank you for allowing us to participate in the care of this patient. Please contact our service with additional questions or concerns. Subjective Spoke with patient via video supervisor plasma. He reports feeling well and ready to leave the hospital. No pain. No nausea/vomiting. No fever/chills. Noyola in place draining clear yellow urine. Physical Exam Vital Signs (Past 24 Hours): Last Vital Signs Temp 36.5 C 11/05/18 07:20 Pulse 66 11/05/18 07:20 Resp 16 11/05/18 07:20 BP 120/70 11/05/18 07:20 Pulse Ox 92 11/05/18 07:20 Physical Exam: WN/WD NAD. Resp effort normal. No JVD. Abd soft, nontender. Prepubic fat on R side appears mildly pink, improved since yesterday. R testicle remains firm and enlarged, not painful, swelling has improved since yesterday. Noyola intact, draining clear yellow urine.
[2018-11-05] MEDS: metroNIDAZOLE 500 MG TAB PO SCH ×2 (14:11→21:06)
--- NOTE | 2018-11-05 17:53 | Hospitalist Progress Note ---
Date of Service November 05, 2018 Assessment & Plan (1) Epididymo-orchitis: ultrasound scrotum: right epididymitis-orchitis complex right hydrocele; pyocele felt to be unlikely no testicular torsion (2) Abdominal wall cellulitis: Patient is an 88 yr male with H/O BPH with indwelling catheter, recurrent UTIs, diastolic heart failure, paroxysmal atrial fibrillation, thrombocytopenia and known cirrhosis who presents with worsening right suprapubic pain x 4 days and was found to have R epididymo-orchitis, abdominal wall cellulitis and complicated UTI. Right Epididymo-orchitis Indwelling Noyola catheter associated Complicated UTI H/O BPH, recurrent UTIs Scrotum US: right epididymitis-orchitis, no testicular abscess. Complex right hydrocele. This may be reactive. Pyocele is considered less likely. No evidence of testicular torsion. CT abd/pelvis: mild infiltrative change of the suprapubic subcutaneous fat may indicate a low-grade cellulitis. Improving with IV Abx Appreciate Urology Input Blood Cultures:pending Urine Culture: Likely Contaminated sample Needs FU with Urology upon discharge (3) Complicated UTI (urinary tract infection): management as above presumed abdominal wall cellulitis (4) BPH (benign prostatic hyperplasia): (5) Chronic indwelling Noyola catheter: UA with evidence of possible infection in setting of bladder outlet obstr uction 2/2 BPH Had catheter changed recently Past urine cultures: grown high counts of bacteria but have not specified Current Urine Culture: Three types of organisms present, all high counts. Repe at collection recommended. No further identifications or sensitivities to follow. (6) PAF (paroxysmal atrial fibrillation): Continue Toprol (7) Diastolic CHF: Appears euvolemic Low sodium diet continue Lasix (8) Thrombocytopenia: In setting of cirrhosis monitor (9) Cirrhosis of liver: LFTs at baseline. CT abd/pelvis with fatty replacement of the liver associated with mild hepatic cirrhosis DVT Px: SCDs Code status: DNR Subjective Patient is seen and examined at bedside Doing much better today Groin/Testicular swelling and redness improving No new complaints Denies chest pain, SOB, dizziness, dysuria Family at bedside Physical Exam Vital Signs (Past 24 Hours): Last Vital Signs Temp 36.3 C L 11/05/18 15:15 Pulse 65 11/05/18 15:15 Resp 17 11/05/18 15:15 BP 117/75 11/05/18 15:15 Pulse Ox 95 04/10/19 15:15 Physical Exam: Physical Exam: Vitals signs as noted above General Appearance:Moderately built and nourished, no apparent distress Head: normocephalic, Atraumatic Eyes: normal inspection, EOMI Neck: supple, Trachea midline Respiratory/Chest: Normal breath sounds, CTA Cardiovascular: S1, S2, No murmur Abdomen/GI:Soft, Non tender, Bowel sounds present : Groin/Testicular erythema, swelling improving Extremities/Musculoskelatal:normal inspection, no edema Neurologic/Psych:AAOX3, grossly no focal neurological deficits Skin: normal color, warm Results & Data Laboratory Results Short CBC 11/05/18 Range/Units 06:55 WBC 9.21 (4.8-10.8) K/uL Hgb 14.9 (14.0-18.0) g/dL Hct 42.5 (42-52) % Plt Count 73 L (130-400) K/uL BMP 11/05/18 06:55 Sodium 140 Potassium 4.0 Chloride 109 H Carbon Dioxide 23 BUN 32 H D Creatinine 1.34 Glucose 92 Calcium 8.5
[2018-11-05] MEDS: FUROSEMIDE 20 MG TAB PO SCH (20:52)
[2018-11-05] MEDS: ASPIRIN 81 MG ECTAB PO SCH (20:52)
[2018-11-05] MEDS: METHENAMINE HIPPURATE 1 GM TAB PO SCH (20:52)
[2018-11-05] MEDS: POTASSIUM CHLORIDE 20MEQ/15ML 473ML PO SCH (20:53)
[2018-11-06 05:48] LABS: Hematocrit (blood only) 43.2 % (42-52); Hemoglobin 15.2 g/dL (14.0-18.0); Mean Corpuscular Hgb Conc 35.2 g/dL (32-36); Mean Corpuscular Volume 86.4 fL (80-100); RDW Coefficient of Variation 14.8 % (11.5-14.5); White Blood Count 9.12 K/uL (4.8-10.8)
[2018-11-06 06:12] LABS: Platelet Count 74 K/uL (130-400)
[2018-11-06] MEDS: metroNIDAZOLE 500 MG TAB PO SCH ×2 (06:12→13:29)
[2018-11-06] MEDS: CEFEPIME 2,000 MG in SYRINGE 7.5 ML IV SCH (06:12)
[2018-11-06 06:26] LABS: BUN Creatinine Ratio 22.3 (10-20); Calcium 8.5 mg/dl (8.5-10.1); Creatinine Clr Calc Pharmacy 29.9 ml/min; Est GFR (African American) 54.1; Est GFR (Non-African American) 46.6; Potassium 3.9 mmol/L (3.5-5.1)
[2018-11-06] MEDS: METOPROLOL SUCC 50MG EXT REL TAB PO SCH (07:46)
[2018-11-06] MEDS: INSULIN GLARGINE SOLOSTAR 100 UNITS/ML 3 ML PEN SC SCH (09:30)
[2018-11-06] MEDS: INSULIN ASPART 100 UNITS/ML 3 ML PEN SC SCH ×2 (09:32→13:29)
--- NOTE | 2018-11-06 14:43 | Hospitalist Progress Note ---
Date of Service November 06, 2018 Assessment & Plan (1) Epididymo-orchitis: ultrasound scrotum: right epididymitis-orchitis complex right hydrocele; pyocele felt to be unlikely no testicular torsion (2) Abdominal wall cellulitis: Patient is an 88 yr male with H/O BPH with indwelling catheter, recurrent UTIs, diastolic heart failure, paroxysmal atrial fibrillation, thrombocytopenia and known cirrhosis who presents with worsening right suprapubic pain x 4 days and was found to have R epididymo-orchitis, abdominal wall cellulitis and complicated UTI. Right Epididymo-orchitis Indwelling [place] catheter associated Complicated UTI H/O BPH, recurrent UTIs Scrotum US: right epididymitis-orchitis, no testicular abscess. Complex right hydrocele. This may be reactive. Pyocele is considered less likely. No evidence of testicular torsion. CT abd/pelvis: mild infiltrative change of the suprapubic subcutaneous fat may indicate a low-grade cellulitis. Improved with IV Abx--Plan to transition to PO Abx Appreciate Urology Input Blood Cultures:No growth to date Urine Culture: Likely Contaminated sample Needs FU with Urology upon discharge Plan to discharge home today (3) Complicated UTI (urinary tract infection): management as above presumed abdominal wall cellulitis QTC Prolongation: Avoid QTC prolonging meds as able monitor (4) BPH (benign prostatic hyperplasia): (5) Chronic indwelling [place] catheter: UA with evidence of possible infection in setting of bladder outlet obstruction 2/2 BPH Had catheter changed recently Past urine cultures: grown high counts of bacteria but have not specified Current Urine Culture: Three types of organisms present, all high counts. Repeat collection recommended. No further identifications or sensitivities to follow. (6) PAF (paroxysmal atrial fibrillation): Continue Toprol (7) Diastolic CHF: Appears euvolemic Low sodium diet continue Lasix (8) Thrombocytopenia: In setting of cirrhosis monitor (9) Cirrhosis of liver: LFTs at baseline. CT abd/pelvis with fatty replacement of the liver associated with mild hepatic cirrhosis DVT Px: SCDs Code status: DNR Subjective Patient is seen and examined at bedside No new complaints Prefers to be discharged home Groin/Testicular swelling and redness continues to improve--denies dysuria, pain Denies chest pain, SOB, dizziness, dysuria Family at bedside Physical Exam Vital Signs (Past 24 Hours): Last Vital Signs Temp 36.4 C L 11/06/18 06:55 Pulse 62 11/06/18 06:55 Resp 16 11/06/18 06:55 BP 109/69 11/06/18 06:55 Pulse Ox 96 11/06/18 06:55 Physical Exam: Physical Exam: Vitals signs as noted above General Appearance:Moderately built and nourished, no apparent distress Head: normocephalic, Atraumatic Eyes: normal inspection, EOMI Neck: supple, Trachea midline Respiratory/Chest: Normal breath sounds, CTA Cardiovascular: S1, S2, No murmur Abdomen/GI:Soft, Non tender, Bowel sounds present : Groin/Testicular erythema, swelling improving Extremities/Musculoskelatal:normal inspection, no edema Neurologic/Psych:AAOX3, grossly no focal neurological deficits Skin: normal color, warm Results & Data Laboratory Results Short CBC 11/06/18 Range/Units 05:39 WBC 9.12 (4.8-10.8) K/uL Hgb 15.2 (14.0-18.0) g/dL Hct 43.2 (42-52) % Plt Count 74 L (130-400) K/uL BMP 11/06/18 05:39 Sodium 139 Potassium 3.9 Chloride 107 Carbon Dioxide 26 BUN 30 H Creatinine 1.34 Glucose 109 H Calcium 8.5
--- NOTE | 2018-11-06 15:05 | Discharge Summary ---
Date of Service November 06, 2018 Admission HPI Per Admitting Provider This is an 88-year-old male with a PMH of BPH with indwelling catheter, recurrent UTIs, diastolic heart failure, paroxysmal atrial fibrillation, thrombocytopenia and known cirrhosis who presents with worsening right sup rapubic pain x 4 days. Patient speaks [place] as primary language, but daughter at bedside help to provide history. Patient has been admitted in the past for UTIs and urine cultures have grown high counts of bacteria but have not specified. Daughter states the patient has complained of intermittent suprapubic pain over the past few months, but pain has been constant since Saturday. Also with decreased appetite, generalized weakness and occasional shortness of breath. Is a patient of Dr. Blanca of [facility] u[facility]. Usually has catheter replaced monthly, but has required replacement every few weeks lately due to clogging, per daughter. Catheter was last replaced 4 days ago. Denies any fever, chills denies fever, chills, headache, lightheadedness, chest pain, nausea, vomiting, abdominal pain, diarrhea or constipation. Lives at home with , but daughter assists with medical care. Patient is a DNR. Admission Exam Per Admitting Provider General Appearance: WD/WN, no apparent distress, resting comfortably Head: normocephalic, atraumatic Eyes: normal inspection, PERRL, EOMI ENT: hearing grossly normal, pharynx normal (moist mucous membranes) Neck: supple, no JVD, no adenopathy Respiratory/Chest: lungs clear to auscultation. No wheezes, rales or rhonci. No respiratory distress or accessory muscle use Cardiovascular: regular rate, rhythm, no murmur, normal peripheral pulses, no BLE edema Abdomen/GI: normal bowel sounds, soft, non-tender to palpation : R scrotum erythematous and edematous with extension to RLQ, tender to palpation. + Suprapubic TTP. Indwelling haas present Extremities/Musculoskelatal: normal inspection, no calf tenderness, normal capillary refill, no pedal edema Neurologic/Psych: alert, normal mood/affect, oriented x 3 Skin: normal color, warm/dry Principal Diagnosis Discharge Information Discharge Diagnosis Right Epididymo-orchitis Indwelling Haas catheter associated Complicated UTI Discharge Goals Decrease discomfort,Improve disease control, Improve function Discharge Activity Limitations Resume your previous acti Discharge Data Allergies Allergy/AdvReac Type Severity Reaction Status Date / Time No Known Allergies Allergy Verified 11/03/18 12:28 Consultations 11/03/18 13:53 ED Decision to Admit Stat 11/03/18 16:20 Consult Case Management - Discharge Planning Routine Consult Urology Routine Procedures Performed CT ABD: 1. Small right pleural effusion. This is an interval change compared to the prior study. 2. Unchanging 12 mm nodular density right base. 3. Fatty replacement of the liver associated with mild hepatic cirrhosis. 4. 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 Left hepatic lobe nodular density potentially relating to a hemangioma. 6. Mild infiltrative change of the suprapubic subcutaneous fat may indicate a low-grade cellulitis. 7. No evidence for abscess collection or obstructive change. 8. Stable destructive and chronic bony changes of the lumbar spine at L2-L3 and L4. This is unaltered from the prior study. Scrotum USD: 1. Right epididymitis-orchitis. No testicular abscess. 2. Complex right hydrocele. This may be reactive. Pyocele is considered less likely. 3. No evidence of testicular torsion. 4. Left varicocele. 5. Small left hydrocele. Ordered Studies 11/03/18 11:40 CT abd pelvis IV con only Stat US scrotum/testicle Stat Hospital Course (1) Epididymo-orchitis: ultrasound scrotum: right epididymitis-orchitis complex right hydrocele; pyocele felt to be unlikely no testicular torsion (2) Abdominal wall cellulitis: Patient is an 88 yr male with H/O BPH with indwelling catheter, recurrent UTIs, diastolic heart failure, paroxysmal atrial fibrillation, thrombocytopenia and known cirrhosis who presents with worsening right suprapubic pain x 4 days and was found to have R epididymo-orchitis, abdominal wall cellulitis and complicated UTI. Right Epididymo-orchitis Indwelling Ha[place] catheter associated Complicated UTI H/O BPH, recurrent UTIs Scrotum US: right epididymitis-orchitis, no testicular abscess. Complex right hydrocele. This may be reactive. Pyocele is considered less likely. No evidence of testicular torsion. CT abd/pelvis: mild infiltrative change of the suprapubic subcutaneous fat may indicate a low-grade cellulitis. Improved with IV Abx--Plan to transition to PO Abx Appreciate Urology Input Blood Cultures:No growth to date Urine Culture: Likely Contaminated sample Needs FU with Urology upon discharge Plan to discharge home today (3) Complicated UTI (urinary tract infection): management as above presumed abdominal wall cellulitis QTC Prolongation: Avoid QTC prolonging meds as able monitor (4) BPH (benign prostatic hyperplasia): (5) Chronic indwelling Haas catheter: UA with evidence of possible infection in setting of bladder outlet obstruction 2/2 BPH Had catheter changed recently Past urine cultures: grown high counts of bacteria but have not specified Current Urine Culture: Three types of organisms present, all high counts. Repeat collection recommended. No further identifications or sensitivities to follow. (6) PAF (paroxysmal atrial fibrillation): Continue Toprol (7) Diastolic CHF: Appears euvolemic Low sodium diet continue Lasix (8) Thrombocytopenia: In setting of cirrhosis monitor (9) Cirrhosis of liver: LFTs at baseline. CT abd/pelvis with fatty replacement of the liver associated with mild hepatic cirrhosis DVT Px: SCDs Code status: DNR Total Time Total Time Spent Total Time Spent (In Minutes): 36 minutes Total Time Includes: Examination of the Patient, Discharge Planning, Medication Reconciliation, Communication With Other Providers and Other Discharge Plan Discharge Items Patient Disposition: Home - Home Health Services Reason For Visit: EPIDIDYMITIS-ORCHITIS,COMPLICATED UIT Discharge Diagnosis: Right Epididymo-orchitis Indwelling Haas catheter associated Complicated UTI Discharge Goals: Decrease discomfort, Improve disease control and Improve func tion Activity: Resume your previous activity Exercise/Sports: Gradually increase as tolerated Non-emergency contact: Primary Care Provider and Urologist Call non-emergency contact if: you have any medication questions, your symptoms worsen, your pain is not controlled, your pain is worsening, your pain is unusual for you, your pain is concerning for you, you have a fever and your temperature is above 100.5 Follow-up/Referrals: Selene Bentley, [Primary Care Provider] - Diet: Carb Consistent or DM2 and Low Sodium (2gm) Addtl Provider Instructions: Follow up with your PCP on November 10, 2018 at 11:05 AM Follow up with your Urologist in 2 weeks Complete the antibiotic course as prescribed Seek immediate medical attention if your symptoms reoccur or worsen Prescriptions: New cefdinir 300 mg capsule 300 mg PO BID 14 Days Qty: 28 RF: 0 metronidazole 500 mg Tablet 500 mg PO Q8 14 Days Qty: 42 RF: 0 Continued potassium chloride 8 mEq capsule, extended release 8 meq PO Q OTHER DAY RF: 0 aspirin 81 mg Tablet,Delayed Release (Dr/Ec) 81 mg PO PM RF: 0 furosemide 20 mg tablet 20 mg PO Q OTHER DAY RF: 0 metoprolol succinate 50 mg tablet extended release 24 hr 50 mg PO QAM RF: 0 polyethylene glycol 3350 [Miralax] 17 gram Powder In Packet 17 g PO DAILY PRN (Reason: Constipation) RF: 0 sennosides-docusate sodium [Senokot-S] 8.6-50 mg Tablet 2 tab PO HS PRN (Reason: Constipation) RF: 0 ibuprofen 200 mg Tablet 200 mg PO Q6H PRN (Reason: Pain) RF: 0 Lantus Solostar U-100 Insulin 100 unit/mL (3 mL) insulin pen 14 unit subcut QAM RF: 0 methenamine hippurate 1 gram tablet 1 g PO HS RF: 0 Stand-Alone Forms: [facility] Discharge Orders: Discharge Order (Routine); Ordered 11/06/18 Ordered By: Jon Jason Admission Data Admit Date/Time: 11/04/18 14:24 Attending Provider: Jon Jason Admit Provider: Larry Hopkins Primary Care Provider: Selene Bentley. Other Providers: Larry Hopkins ; Sherwin Goddard II ; Flip Miranda Service: Surgical Services Other Interventions: Discharge Summary Assessment (RN) Last Done: 11/06/18 16:08 Pending Studies at Discharge: No DC Date/Time DO NOT enter until pt leaves facility: 11/06/18 17:15
== END 2018-11-06 17:15 | disposition home health service (06) | DRG 699 ==
LOC: ED 11:20 → 3W 11:20 → SUATTDRO 11-04 14:24